=== PATIENT | female | born 1960 | race Caucasian/White ===

== ENCOUNTER 2019-05-06 22:53 | Observation (INO) | payer MEDICARE, MEDICAID, SELFPAY ==
[2019-05-06 22:54] VITALS: BP 136/66; PULSE 128; RESP 16; TEMP 36.6; O2SAT 96; BMI 37.8
--- NOTE | 2019-05-06 23:30 | EKG12_ITS ---
Test Reason : LOWER EXTRE Blood Pressure : / mmHG Vent. Rate : 104 BPM Atrial Rate : 104 BPM P-R Int : 142 ms QRS Dur : 088 ms QT Int : 344 ms P-R-T Axes : 069 052 060 degrees QTc Int : 452 ms Sinus tachycardia Otherwise normal ECG Confirmed by STACY BECERRA ([id number]), deputy editor in chief BEV SCALES ([id number]) on 05/11/2019 2:05:43 PM Referred By: GERI Confirmed By:STACY BECERRA
--- NOTE | 2019-05-06 23:31 | ED.VISSUMM ---
- ER Visit Summary Date of Service: 05/06/19 Chief Complaint: Bilateral hip pain History of Present Illness: The patient is a 58 F who presents complaining of bilateral hip pain for 3 days. Patient states the pain is an ongoing issue for her, and she has had worsening pain for the last 3 days. She is also complaining of a pinched nerve in her left shoulder. Patient states that the bottoms of her feet hurt and are tingly. She does have history of diabetes, peripheral neuropathy, arthritis, and states she is in pain management although she states she is not on any medications for pain other than [id number] Tylenol. Patient takes amitriptyline. She denies using any controlled substances or being on any illicit substances. She denies withdrawing from anything at this time. Physical Examination: Vital signs: afebrile, hemodynamically stable, no hypoxia on room air General: well nourished, well developed, in no distress Skin: warm, diaphoretic, no rash, no pallor HEENT: normocephalic and atraumatic; PERRL, EOMI, moist mucous membranes Cardiovascular: Tachycardic rate and rhythm without murmurs, no peripheral edema, 2+ pulses all distal extremities Respiratory: No increased work of breathing, lungs are clear to auscultation bilaterally, no rales, rhonchi or wheezing Abdominal: Abdomen is soft, nontender with normoactive bowel sounds, no guarding or rebound, no masses MSK: Moves all extremities, no deformities, normal strength, hips are nontender, patient able to ambulate without any difficulty or pain Neuro: Awake and alert, oriented ?4. No facial droop, sensation and motor function intact and symmetric Test Results: Abnormal Lab Results 05/06/19 05/06/19 05/06/19 23:55 23:55 23:55 WBC 15.6 H RBC 4.76 Hgb 14.2 Hct 43.0 MCV 90.3 MCH 29.8 MCHC 33.0 RDW 14.7 H RDW Differential 47.8 H Plt Count 313 MPV 9.8 Immature Gran % (Auto) 0.200 Neut % (Auto) 78.0 H Lymph % (Auto) 12.8 L [place] % (Auto) 7.9 Eos % (Auto) 0.7 Baso % (Auto) 0.4 Absolute Neuts (auto) 12.2 H Absolute Lymphs (auto) 2.00 Total Counted Not Reportable Sodium 139 Potassium 3.6 Chloride 108 H Carbon Dioxide 24.0 Anion Gap 7 BUN 26 H Creatinine 1.42 H Estim Creat Clear Calc 37.29 Est GFR (MDRD) Af Amer 49 L Est GFR (MDRD) Non-Af 40 L BUN/Creatinine Ratio 18.3 Glucose 113 H Calcium 9.4 Urine Color Urine Clarity Urine pH Ur Specific [place] [address] Urine Protein Urine Glucose (UA) Urine Ketones Urine Occult Blood Urine Nitrite Urine Bilirubin Urine Urobilinogen Ur Leukocyte Esterase Urine RBC Urine WBC Ur Squamous Epith Cells Urine Bacteria Urine Mucus Urine Opiates Screen Urine Methadone Screen Ur Barbiturates Screen Ur Phencyclidine Scrn Ur Amphetamines Screen U Methamphetamin-MDMA U Benzodiazepines Scrn Urine Cocaine Screen U Cannabinoids Screen Ur Drug Screen Comment Ethyl Alcohol 11.0 POC Glucose 05/07/19 05/07/19 05/07/19 00:05 00:05 00:05 WBC RBC Hgb Hct MCV MCH MCHC RDW RDW Differential Plt Count MPV Immature Gran % (Auto) Neut % (Auto) Lymph % (Auto) [place] % (Auto) Eos % (Auto) Baso % (Auto) Absolute Neuts (auto) Absolute Lymphs (auto) Total Counted Sodium Potassium Chloride Carbon Dioxide Anion Gap BUN Creatinine Estim Creat Clear Calc Est GFR (MDRD) Af Amer Est GFR (MDRD) Non-Af BUN/Creatinine Ratio Glucose Calcium Urine Color Yellow Urine Clarity Turbid Urine pH 6.[address] 1.020 Urine Protein 30 H Urine Glucose (UA) Normal Urine Ketones Negative Urine Occult Blood 50 H Urine Nitrite Positive H Urine Bilirubin Negative Urine Urobilinogen Normal Ur Leukocyte Esterase 500 H Urine RBC 0 SEEN Urine WBC >100 SEEN Ur Squamous Epith Cells 0-5 SEEN Urine Bacteria 1+ Urine Mucus 0 SEEN Urine Opiates Screen NEGATIVE Urine Methadone Screen NEGATIVE Ur Barbiturates Screen NEGATIVE Ur Phencyclidine Scrn NEGATIVE Ur Amphetamines Screen NEGATIVE U Methamphetamin-MDMA NEGATIVE U Benzodiazepines Scrn NEGATIVE Urine Cocaine Screen NEGATIVE U Cannabinoids Screen NEGATIVE Ur Drug Screen Comment Ethyl Alcohol POC Glucose 107 Medications Given Sodium Chloride () 1,000 mls @ 999 mls/hr IV .Q1H1M ONE Stop: 05/07/19 02:18 Ceftriaxone Sodium (Rocephin) 1 gm in 50 mls @ 100 mls/hr IV X1 ONE Stop: 05/07/19 01:47 Discontinued Medications Ketorolac Tromethamine (Toradol) 15 mg IV X1 ONE Stop: 05/06/19 23:31 Last Admin: 05/07/19 00:02 Dose: 15 mg Documented by: JAM Emergency Department Course and Treatment: Patient presents complaining of 3 days of bilateral hip pain, which is an ongoing issue for her. She is tachycardic and has an odd affect, with diaphoresis. Patient [place]AR[place] report was performed since patient is in pain management, and it did not show any controlled substances since 2018. Patient states she is not withdrawing from anything but she is on amitriptyline. Because of her tachycardia, diaphoresis, and her odd affect, with concern for an underlying medical reason causing this, blood sugar was checked, basic labs were performed, and a urine drug screen and alcohol level were obtained. Patient was given Toradol for pain. Patient had a leukocytosis of 15.6. Creatinine elevated at 1.4. Urine was strongly positive for infection. Patient's alcohol was negative. EKG showed no ischemic changes. Discussed with patient her hip pain again and whether she is having any urinary symptoms. Patient stated she is having some dysuria and frequency. At this time I suspect her hip pain is actually lower back pain related to acute pyelonephritis. Patient was started on Rocephin. Lactate was performed and blood cultures were obtained. Patient will be admitted for further management of acute pyelonephritis. Patient was discussed with the hospitalist for admission. Treatment Plan: [] Disposition: [] Impression: Acute pyelonephritis This note was generated with [employer] software. It may contain incorrect words, spelling, and punctuation that were not noted in review of the chart prior to signing ED Disposition - Plan for ED Patient: Referrals: Lamberto Rogers MD [Primary Care Provider] -
[2019-05-07] VITALS (11 sets, daily range): BP systolic 121–154; BP diastolic 64–73; PULSE 84–91; RESP 14–18; TEMP 36.6–37.6; O2SAT 94–98; BMI 37.8; BMI 37.9
[2019-05-07] MEDS: Ketorolac 15 MG/ML Vial IV (00:02)
[2019-05-07 00:11] LABS: Bedside Glucose 107 mg/dL (70-110); Mucous, Urine 0 SEEN /hpf (<or=2+); Red Blood Cells-Urine 0 SEEN /hpf (0-5)
[2019-05-07 00:13] LABS: Color, Urine Yellow (Yellow); Glucose, Dipstick Normal (Normal); Ketone-Dipstick Negative (Negative); Leukocyte Esterase-Dipstick 500 /ul (Negative); Nitrite-Dipstick Positive (Negative); Occult Blood-Urine 50 /ul (Negative); Protein-Dipstick 30 mg/dl (Negative); Urine Bilirubin Dipstick Negative (Negative); Urine Clarity Turbid (Clear); Urine Urobilinogen Normal (Normal)
[2019-05-07 00:14] LABS: Hemoglobin 14.2 g/dl (12.0-15.0); Mean Corpuscular Hgb 29.8 pg (27.0-32.0); Mean Corpuscular Volume 90.3 fL (81-99); RBC Distribution Width CV 14.7 % (11.6-14.6); RBC Distribution Width SD 47.8 fl (35.1-43.9); Red Blood Count 4.76 M/mm3 (4.2-5.4); White Blood Count 15.6 K/mm3 (4.4-11.0)
[2019-05-07 00:15] LABS: Absolute Neutrophil Count 12.2 X10^3/uL (2.0-7.7); Basophil# 0.06 X10^3/uL; Basophil% 0.4 % (0-1); Eosinophil# 0.11 X10^3/uL; Eosinophils% 0.7 % (0-5); Lymphocyte % 12.8 % (19-41); Mean Platelet Vol. 9.8 fl (6.2-12.0); Monocyte# 1.23 X10^3/uL; Monocyte% 7.9 % (0-10); Neutrophil # 12.16 X10^3/uL (2.7-7.7); POSITIVE COUNT NO; POSITIVE DIFFERENTIAL NO; POSITIVE MORPHOLOGY NO; Platelet Count 313 K/mm3 (150-450)
[2019-05-07 00:20] LABS: Anion Gap 7 (5-15); BUN 26 mg/dL (7-18); BUN/Creat Ratio 18.3 RATIO (10-20); Calcium,Total 9.4 mg/dL (8.5-10.1); Chloride 108 mmol/L (98-107); Creatinine, Serum 1.42 mg/dL (0.55-1.02); EST Glomerular Filtration Rate 40 mL/min (>60); Est Glom Filt Rate - Afr Amer 49 mL/min (>60); Estimated Creatinine Clearance 37.29 ml/min; Glucose 113 mg/dL (74-106); Potassium 3.6 mmol/L (3.5-5.1); Sodium Level 139 mmol/L (136-145)
[2019-05-07 00:27] LABS: Bacteria 1+ /hpf (None Seen); Squamous Epithelial Cells - UA 0-5 SEEN /hpf (5-10); White Blood Cells >100 SEEN /hpf (0-5)
[2019-05-07 00:44] LABS: Amphetamine Urine VISTA NEGATIVE (<1000 ng/mL); Barbiturate Urine VISTA NEGATIVE (< 200 ng/mL); Benzodiazepine Urine VISTA NEGATIVE (< 200 ng/mL); Cocaine Urine VISTA NEGATIVE (< 300 ng/mL); Ecstacy Urine VISTA NEGATIVE (< 500 ng/mL); Methadone Urine VISTA NEGATIVE (< 300 ng/mL); PCP Urine VISTA NEGATIVE (< 25 ng/mL); THC Urine VISTA NEGATIVE (< 50 ng/mL); Vista UDS pH Range 5
--- NOTE | 2019-05-07 01:18 | RAD_ITS ---
STUDY: X-RAY CHEST REASON FOR EXAM: Female, 58 years old. Sepsis TECHNIQUE: Single AP portable view of the chest. COMPARISON: None. FINDINGS: Subsegmental atelectases in the left lung base. There is no demonstrated pleural abnormality. Normal size heart. Normal mediastinum and dwayne. Normal visualized pulmonary arteries. Normal visualized aortic arch and descending thoracic aorta. Normal visualized thoracic spine. Normal visualized ribs, clavicles, and shoulders. There is no demonstrated abnormality of the visualized soft tissue structures of the upper abdomen. RAD/Chest 1 View (Portable) IMPRESSION: Normal x-ray examination of the chest. Electronically Signed: Tip Jurado, at 2:07 EDT Tel , Service support ,
[2019-05-07] MEDS: 0.9% Normal Saline 1,000 ML 999 ML IV (01:26)
[2019-05-07 01:39] LABS: Lactic Acid 1.7 mmol/L (0.4-2.0)
[2019-05-07] MEDS: Ceftriaxone 1 GM/50 ML BAG IV ×2 (01:58→21:31)
[2019-05-07 02:45] LABS: Hemoglobin A1c 6.4 % (4.2-6.3)
[2019-05-07] MEDS: 0.9% Normal Saline 1,000 ML 75 ML IV (03:04)
[2019-05-07 07:20] LABS: Absolute Neutrophil Count 8.5 X10^3/uL (2.0-7.7); Basophil# 0.04 X10^3/uL; Basophil% 0.3 % (0-1); Eosinophil# 0.19 X10^3/uL; Eosinophils% 1.5 % (0-5); Hematocrit 39.8 % (37-47); Hemoglobin 13.3 g/dl (12.0-15.0); Mean Corp Hgb Conc 33.4 g/gl (32-36); Mean Corpuscular Hgb 30.4 pg (27.0-32.0); Mean Corpuscular Volume 91.1 fL (81-99); Mean Platelet Vol. 10.3 fl (6.2-12.0); Monocyte# 1.29 X10^3/uL; Monocyte% 9.9 % (0-10); Neutrophil % 65.1 % (47-70); Platelet Count 279 K/mm3 (150-450); RBC Distribution Width CV 14.9 % (11.6-14.6); RBC Distribution Width SD 48.3 fl (35.1-43.9); Red Blood Count 4.37 M/mm3 (4.2-5.4); White Blood Count 13.1 K/mm3 (4.4-11.0)
[2019-05-07 07:23] LABS: POSITIVE COUNT NO; POSITIVE DIFFERENTIAL NO; POSITIVE MORPHOLOGY NO
[2019-05-07 07:41] LABS: Anion Gap 7 (5-15); BUN 21 mg/dL (7-18); Calcium,Total 8.6 mg/dL (8.5-10.1); Chloride 112 mmol/L (98-107); Creatinine, Serum 1.05 mg/dL (0.55-1.02); EST Glomerular Filtration Rate 57 mL/min (>60); Est Glom Filt Rate - Afr Amer 69 mL/min (>60); Estimated Creatinine Clearance 50.43 ml/min; Glucose 110 mg/dL (74-106); Potassium 3.4 mmol/L (3.5-5.1); Sodium Level 141 mmol/L (136-145)
--- NOTE | 2019-05-07 07:50 | PCM.HP.STD ---
Problem List (1) UTI (urinary tract infection) Status: Acute History of Present Illness Date of Admission: 05/07/19 Chief Complaint: bilateral hip pain. The patient is a 58 year old F with a significant history of rosacea; hyperlipidemia; hypertension; neuropathy bilateral hip replacement presenting with bilateral hip pain that started 3 days ago. Associated with her symptoms is tingling in her bilateral hands and feet and left shoulder. She reported because of neuropathy she was compression socks. Further she has noticed increasing frequency of her urination in the last 2 weeks. Also patient reports history of chronic constipation. However her bowels moved within 24 hours before presentation. At the Emergency department patient was found to have severely abnormal urinalysis. Past Medical History Past Medical History (Chronic Problems): Chronic Problems Primary osteoarthritis of left hip (Chronic) Diabetes (Chronic) Spinal stenosis (Chronic) Allergies enalapril Adverse Reaction (Verified 05/06/19 22:54) COUGH lisinopril Adverse Reaction (Verified 05/06/19 22:54) COUGH Home Medications: Ambulatory Orders Medication Instructions Recorded Amitriptyline HCl [Elavil] 10 mg PO QHS 12/12/16 Amlodipine [Norvasc] 10 mg PO DAILY 02/06/17 cycloBENZAPRine HCl [Flexeril] 10 mg PO TID PRN PRN 02/06/17 Atorvastatin Calcium [Lipitor] 10 mg PO QHS 06/12/17 Surgical History: - - lumbar sacral trauma due to fall on a fiberglass boat, [employer] History: No pertinent [employer] history Lives: Alone - With maids Smoking Status: Current every day smoker - *Family History Maternal History Items: - - diabeties,heart disease Paternal History Items: - - colon cancer at age 55-58 Review of Systems Constitutional: Denies: Chills, Fever, Weight Change HEENT: Denies: Head Aches, Sinus Congestion, Sinus Drainage Cardiovascular: Denies: Chest Pain, Palpitations Respiratory: Denies: Cough, Shortness of breath at rest, Sputum production Gastrointestinal: Denies: Abdominal Pain, Nausea, Vomiting Genitourinary: Reports: Frequency. Denies: Dysuria Musculoskeletal: Denies: Joint Pain, Joint Tenderness Skin: Denies: Rash, Wounds Neurological: Denies: Numbness, Tingling, Focal weakness Psychiatric: Denies: Anxiety, Depression, Homicidal Ideations, Suicidal Ideations Hematologic/ Lymphatic: Denies: Easy Bruising, Easy Bleeding VTE Information - Inpt Only VTE Present on Admission: No VTE Mechan Device Prophylaxis: None VTE Pharm Prophylaxis ordered?: Yes Patient Problems: Active and Suspected Problems UTI (urinary tract infection) (Acute) - Physical Exam General: Alert, Oriented x3, Cooperative HEENT: Atraumatic, PERRLA, EOMI, Normocephalic Neck: Supple, No JVD, Negative Carotid Bruits Lungs: Clear to auscultation, Normal air movement Cardiovascular: Regular rate, No murmurs Abdomen: Bowel Sounds Present, Soft, Non Tender Extremities: No edema, Capillary Refill Less than 3 Seconds Skin: No rashes, No breakdown Musculoskeletal: No Tenderness to Palpation of Joints or Extremities Neurological: Cranial nerves II-XII grossly intact Psych/Mental Status: Normal Affect, Appropriate Vital Signs Temp Pulse Resp BP Pulse Ox 97.9 F 91 15 145/69 H 98 05/07/19 02:41 05/07/19 02:41 05/07/19 02:41 05/07/19 02:41 05/07/19 02:41 Oxygen Delivery Method Room Air Weight: 100.045 kg Body Mass Index (BMI) 37.8 Finger Stick Blood Glucose 107 Laboratory Tests Past 24 Hrs 05/06/19 05/06/19 05/06/19 23:55 23:55 23:55 WBC 15.6 H RBC 4.76 Hgb 14.2 Hct 43.0 MCV 90.3 MCH 29.8 MCHC 33.0 RDW 14.7 H RDW Differential 47.8 H Plt Count 313 MPV 9.8 Immature Gran % (Auto) 0.200 Neut % (Auto) 78.0 H Lymph % (Auto) 12.8 L [place] % (Auto) 7.9 Eos % (Auto) 0.7 Baso % (Auto) 0.4 Absolute Neuts (auto) 12.2 H Absolute Lymphs (auto) 2.00 Total Counted Not Reportable Sodium 139 Potassium 3.6 Chloride 108 H Carbon Dioxide 24.0 Anion Gap 7 BUN 26 H Creatinine 1.42 H Estim Creat Clear Calc 37.29 Est GFR (MDRD) Af Amer 49 L Est GFR (MDRD) Non-Af 40 L BUN/Creatinine Ratio 18.3 Glucose 113 H Hemoglobin A1c Lactic Acid Calcium 9.4 Urine Color Urine Clarity Urine pH Ur Specific [place] Urine Protein Urine Glucose (UA) Urine Ketones Urine Occult Blood Urine Nitrite Urine Bilirubin Urine Urobilinogen Ur Leukocyte Esterase Urine RBC Urine WBC Ur Squamous Epith Cells Urine Bacteria Urine Mucus Urine Opiates Screen Urine Methadone Screen Ur Barbiturates Screen Ur Phencyclidine Scrn Ur Amphetamines Screen U Methamphetamin-MDMA U Benzodiazepines Scrn Urine Cocaine Screen U Cannabinoids Screen Ur Drug Screen Comment Ethyl Alcohol 11.0 05/06/19 05/07/19 05/07/19 23:55 00:05 00:05 WBC RBC Hgb Hct MCV MCH MCHC RDW RDW Differential Plt Count MPV Immature Gran % (Auto) Neut % (Auto) Lymph % (Auto) [place] % (Auto) Eos % (Auto) Baso % (Auto) Absolute Neuts (auto) Absolute Lymphs (auto) Total Counted Sodium Potassium Chloride Carbon Dioxide Anion Gap BUN Creatinine Estim Creat Clear Calc Est GFR (MDRD) Af Amer Est GFR (MDRD) Non-Af BUN/Creatinine Ratio Glucose Hemoglobin A1c 6.4 H Lactic Acid Calcium Urine Color Yellow Urine Clarity Turbid Urine pH 6.0 Ur Specific [place] 1.020 Urine Protein 30 H Urine Glucose (UA) Normal Urine Ketones Negative Urine Occult Blood 50 H Urine Nitrite Positive H Urine Bilirubin Negative Urine Urobilinogen Normal Ur Leukocyte Esterase 500 H Urine RBC 0 SEEN Urine WBC >100 SEEN Ur Squamous Epith Cells 0-5 SEEN Urine Bacteria 1+ Urine Mucus 0 SEEN Urine Opiates Screen NEGATIVE Urine Methadone Screen NEGATIVE Ur Barbiturates Screen NEGATIVE Ur Phencyclidine Scrn NEGATIVE Ur Amphetamines Screen NEGATIVE U Methamphetamin-MDMA NEGATIVE U Benzodiazepines Scrn NEGATIVE Urine Cocaine Screen NEGATIVE U Cannabinoids Screen NEGATIVE Ur Drug Screen Comment Ethyl Alcohol 05/07/19 05/07/19 05/07/19 00:55 06:10 06:10 WBC 13.1 H RBC 4.37 Hgb 13.3 Hct 39.8 MCV 91.1 MCH 30.4 MCHC 33.4 RDW 14.9 H RDW Differential 48.3 H Plt Count 279 MPV 10.3 Immature Gran % (Auto) 0.200 Neut % (Auto) 65.1 Lymph % (Auto) 23.0 [place] % (Auto) 9.9 Eos % (Auto) 1.5 Baso % (Auto) 0.3 Absolute Neuts (auto) 8.5 H Absolute Lymphs (auto) 3.00 Total Counted Not Reportable Sodium 141 Potassium 3.4 L Chloride 112 H Carbon Dioxide 22.0 Anion Gap 7 BUN 21 H Creatinine 1.05 H Estim Creat Clear Calc 50.43 Est GFR (MDRD) Af Amer 69 Est GFR (MDRD) Non-Af 57 L BUN/Creatinine Ratio 20.0 Glucose 110 H Hemoglobin A1c Lactic Acid 1.7 Calcium 8.6 Urine Color Urine Clarity Urine pH Ur Specific [place] Urine Protein Urine Glucose (UA) Urine Ketones Urine Occult Blood Urine Nitrite Urine Bilirubin Urine Urobilinogen Ur Leukocyte Esterase Urine RBC Urine WBC Ur Squamous Epith Cells Urine Bacteria Urine Mucus Urine Opiates Screen Urine Methadone Screen Ur Barbiturates Screen Ur Phencyclidine Scrn Ur Amphetamines Screen U Methamphetamin-MDMA U Benzodiazepines Scrn Urine Cocaine Screen U Cannabinoids Screen Ur Drug Screen Comment Ethyl Alcohol POC Glucose 05/07/19 00:05 POC Glucose 107 Assessment/Plan All Active Problems UTI (urinary tract infection) (Acute) Closed left hip fracture (Acute) Closed left hip fracture (Acute) HTN (hypertension) (Acute) Hypokalemia (Acute) The patient is a 58 year old F with a significant history of rosacea; hyperlipidemia; hypertension; neuropathy bilateral hip replacement presenting with bilateral hip pain; bilateral hands and feet and left shoulder and frequent urination. Acute Cystitis Patient noted to have neutrophilic leukocytosis. Patient was noted to have abnormal urinalysis; and she received ceftriaxone at emergency department. We will continue ceftriaxone at this time. Trend CBC and BMP. Bilateral hip pain. Patient reports bilateral hip replacements and a history of bilateral hip pain before her hip replacement. Different diagnoses include osteoarthritis. Patient received Toradol at the ED. Because of concomitant CARLO will shy away from further steroids at this time. Home Flexeril continued. PRN oxycodone ordered. PRN Tylenol ordered. PRN Zofran ordered. Bowel protocol initiated. Neuropathy Likely diabetic neuropathy We will get A1c. Amitriptyline continued CARLO Presentation her creatinine was 1.42. Review of old records shows a creatinine of less than 1. Will consider prerenal at this time and initiate gentle IV hydration. Avoid nephrotoxins. Trend BMP. Hypertension Presentation her blood pressure was not within goal Amlodipine continued Hyperlipidemia Lipitor continued. Tobacco abuse Counseled Declined nicotine patch. DVT Prophylaxis Subcutaneous heparin. Code Visit OBSV E&M: [id number] Initial observation care L3
--- NOTE | 2019-05-07 08:12 | PCM.PN.HOSP ---
Patient Problems: Active and Suspected Problems UTI (urinary tract infection) (Acute) Subjective: Patient admitted with 3 days of bilateral hip pain. Patient has history of primary osteoarthritis status post hip replacement in 2017?18. Also history of spinal stenosis and diabetes. Patient also has chronic constipation for more than 5 to 6 years. Complaint of dysuria and increased frequency. UA positive pyuria. No fever or chills. Had tachycardia in ED. Vitals/I&O's: Vital Signs Temp Pulse Resp BP Pulse Ox 97.9 F 91 15 145/69 H 98 05/07/19 02:41 05/07/19 02:41 05/07/19 02:41 05/07/19 02:41 05/07/19 02:41 Oxygen Delivery Method Room Air Weight: 220 lb 9 oz Body Mass Index (BMI) 37.8 Finger Stick Blood Glucose 107 General: Alert, Oriented x3, Cooperative HEENT: Atraumatic, PERRLA, EOMI, Normocephalic Neck: Supple, No JVD, Negative Carotid Bruits Lungs: Clear to auscultation, No rhonchi, No wheeze, No rales, Diminished Cardiovascular: Regular rate, Regular Rhythm, Normal S1, Normal S2, No murmurs Abdomen: Bowel Sounds Present, Soft, Non Tender, Non-Distended Extremities: No edema, Capillary Refill Less than 3 Seconds Skin: No rashes, No breakdown Musculoskeletal: Arthritic Changes, Tenderness - Mild tenderness around the greater trochanter of bilateral hips. Range of motion adequate and full. Neurological: Cranial nerves II-XII grossly intact, Deep Tendon Reflexes 2+/4 and Symmetrical, Neuro grossly intact, Motor Exam 5/5 strength throughout - 5/5 at both hip joints and knee joints. Psych/Mental Status: Normal Affect, Appropriate Laboratory Results 05/06/19 23:55: WBC 15.6 H, RBC 4.76, Hgb 14.2, Hct 43.0, MCV 90.3, MCH 29.8, MCHC 33.0, RDW 14.7 H, RDW Differential 47.8 H, Plt Count 313, MPV 9.8, Immature Gran % (Auto) 0.200, Neut % (Auto) 78.0 H, Lymph % (Auto) 12.8 L, [place] % (Auto) 7.9, Eos % (Auto) 0.7, Baso % (Auto) 0.4, Absolute Neuts (auto) 12.2 H, Absolute Lymphs (auto) 2.00, Total Counted Not Reportable 05/06/19 23:55: Sodium 139, Potassium 3.6, Chloride 108 H, Carbon Dioxide 24.0, Anion Gap 7, BUN 26 H, Creatinine 1.42 H, Estim Creat Clear Calc 37.29, Est GFR (MDRD) Af Amer 49 L, Est GFR (MDRD) Non-Af 40 L, BUN/Creatinine Ratio 18.3, Glucose 113 H, Calcium 9.4 05/06/19 23:55: Ethyl Alcohol 11.0 05/06/19 23:55: Hemoglobin A1c 6.4 H 05/07/19 00:05: Urine Color Yellow, Urine Clarity Turbid, Urine pH 6.0, Ur Specific [place] 1.020, Urine Protein 30 H, Urine Glucose (UA) Normal, Urine Ketones Negative, Urine Occult Blood 50 H, Urine Nitrite Positive H, Urine Bilirubin Negative, Urine Urobilinogen Normal, Ur Leukocyte Esterase 500 H, Urine RBC 0 SEEN, Urine WBC >100 SEEN, Ur Squamous Epith Cells 0-5 SEEN, Urine Bacteria 1+, Urine Mucus 0 SEEN 05/07/19 00:05: Urine Opiates Screen NEGATIVE, Urine Methadone Screen NEGATIVE, Ur Barbiturates Screen NEGATIVE, Ur Phencyclidine Scrn NEGATIVE, Ur Amphetamines Screen NEGATIVE, U Methamphetamin-MDMA NEGATIVE, U Benzodiazepines Scrn NEGATIVE, Urine Cocaine Screen NEGATIVE, U Cannabinoids Screen NEGATIVE, Ur Drug Screen Comment 05/07/19 00:05: POC Glucose 107 05/07/19 00:55: Lactic Acid 1.7 05/07/19 06:10: WBC 13.1 H, RBC 4.37, Hgb 13.3, Hct 39.8, MCV 91.1, MCH 30.4, MCHC 33.4, RDW 14.9 H, RDW Differential 48.3 H, Plt Count 279, MPV 10.3, Immature Gran % (Auto) 0.200, Neut % (Auto) 65.1, Lymph % (Auto) 23.0, [place] % (Auto) 9.9, Eos % (Auto) 1.5, Baso % (Auto) 0.3, Absolute Neuts (auto) 8.5 H, Absolute Lymphs (auto) 3.00, Total Counted Not Reportable 05/07/19 06:10: Sodium 141, Potassium 3.4 L, Chloride 112 H, Carbon Dioxide 22.0, Anion Gap 7, BUN 21 H, Creatinine 1.05 H, Estim Creat Clear Calc 50.43, Est GFR (MDRD) Af Amer 69, Est GFR (MDRD) Non-Af 57 L, BUN/Creatinine Ratio 20.0, Glucose 110 H, Calcium 8.6 Current Medications Acetaminophen (Tylenol) 650 mg PO Q6H PRN PRN PRN Reason: Mild Pain (1-3)/Temp > 100.7 F Amitriptyline HCl (Elavil) 10 mg PO QHS [facility] Amlodipine Besylate (Norvasc) 10 mg PO DAILY [facility] Atorvastatin Calcium (Lipitor) 10 mg PO QHS [facility] Cyclobenzaprine HCl (Flexeril) 10 mg PO TID PRN PRN PRN Reason: muscle spasms Dextrose (D50w Syringe) 0 gm IV X1 PRN; Protocol PRN Reason: Hypoglycemia Enoxaparin Sodium (Lovenox) 40 mg SC DAILY@1000 [facility] Glucagon () 1 mg IM .X1 PRN PRN Reason: Hypoglycemia Sodium Chloride () 1,000 mls @ 75 mls/hr IV .[id number] [facility] Stop: 05/07/19 15:35 Last Admin: 05/07/19 03:04 Dose: 75 mls/hr Documented by: Ceftriaxone Sodium (Rocephin) 1 gm in 50 mls @ 100 mls/hr IV QHS [facility] Nicotine (Nicoderm Cq (Pbkc)) 14 mg TRANSDERM. DAILY [facility] Last Admin: 05/07/19 03:05 Dose: 14 mg Documented by: Ondansetron HCl (Zofran) 4 mg IV Q8H PRN PRN PRN Reason: NAUSEA/VOMITING Oxycodone HCl (Oxyir) 5 mg PO Q6H PRN PRN PRN Reason: Severe pain (7-10/10) Senna/Docusate Sodium (Senokot-S, Betty-Colace) 1 tablet PO BID [facility] Sodium Chloride () 5 - 15 ml IV UD PRN PRN Reason: SALINE FLUSH Medical Necessity - Tobacco Use Smoking Status: Current every day smoker Assessment/Plan All Active Problems UTI (urinary tract infection) (Acute) Closed left hip fracture (Acute) Closed left hip fracture (Acute) HTN (hypertension) (Acute) Hypokalemia (Acute) The patient is a 58 year old F with a significant history of rosacea; hyperlipidemia; hypertension; 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 UA positive of pyuria, WBC more than 100 cells, nitrite and leukocyte esterase positive. continue ceftriaxone. Follow-up CBC Bilateral hip pain. Possible differential bilateral hip arthritis, referred pain from abdomen possible constipation. Patient reports bilateral hip replacements and a history of bilateral hip pain before her hip replacement. Patient denies loosening of joint on walking and the pain is for last 3 days only. Bilateral hip x-rays ordered. Patient hip surgeon Dr. Edwards. KUB ordered. Home Flexeril continued. PRN oxycodone ordered. PRN Tylenol ordered. PRN Zofran ordered. Bowel protocol initiated. Neuropathy Likely diabetic neuropathy We will get A1c. Amitriptyline continued CARLO Presentation her creatinine was 1.42. Review of old records shows a creatinine of less than 1. Creatinine 1.0. Resume lisinopril at LOWER DOSE Hypertension; not controlled Amlodipine continued. Hydralazine 25 mg twice daily added. Hyperlipidemia Lipitor continued. Tobacco abuse Counseled Declined nicotine patch. DVT Prophylaxis Subcutaneous 40 mg subcu daily Active Medications Acetaminophen (Tylenol) 650 mg PO Q6H PRN PRN PRN Reason: Mild Pain (1-3)/Temp > 100.7 F Amitriptyline HCl (Elavil) 10 mg PO QHS [facility] Amlodipine Besylate (Norvasc) 10 mg PO DAILY [facility] Atorvastatin Calcium (Lipitor) 10 mg PO QHS [facility] Cyclobenzaprine HCl (Flexeril) 10 mg PO TID PRN PRN PRN Reason: muscle spasms Dextrose (D50w Syringe) 0 gm IV X1 PRN; Protocol PRN Reason: Hypoglycemia Enoxaparin Sodium (Lovenox) 40 mg SC DAILY@1000 [facility] Glucagon () 1 mg IM .X1 PRN PRN Reason: Hypoglycemia Sodium Chloride () 1,000 mls @ 75 mls/hr IV .[id number] [facility] Stop: 05/07/19 15:35 Last Admin: 05/07/19 03:04 Dose: 75 mls/hr Documented by: Ceftriaxone Sodium (Rocephin) 1 gm in 50 mls @ 100 mls/hr IV QHS [facility] Nicotine (Nicoderm Cq (Pbkc)) 14 mg TRANSDERM. DAILY [facility] Last Admin: 05/07/19 03:05 Dose: 14 mg Documented by: Ondansetron HCl (Zofran) 4 mg IV Q8H PRN PRN PRN Reason: NAUSEA/VOMITING Oxycodone HCl (Oxyir) 5 mg PO Q6H PRN PRN PRN Reason: Severe pain (7-1010) Potassium Chloride (K-Dur) 40 meq PO X1 ONE Stop: 05/07/19 08:39 Senna/Docusate Sodium (Senokot-S, Betty-Colace) 1 tablet PO BID [facility] Sodium Chloride () 5 - 15 ml IV UD PRN PRN Reason: SALINE FLUSH Laboratory Results 05/06/19 23:55: WBC 15.6 H, RBC 4.76, Hgb 14.2, Hct 43.0, MCV 90.3, MCH 29.8, MCHC 33.0, RDW 14.7 H, RDW Differential 47.8 H, Plt Count 313, MPV 9.8, Immature Gran % (Auto) 0.200, Neut % (Auto) 78.0 H, Lymph % (Auto) 12.8 L, [place] % (Auto) 7.9, Eos % (Auto) 0.7, Baso % (Auto) 0.4, Absolute Neuts (auto) 12.2 H, Absolute Lymphs (auto) 2.00, Total Counted Not Reportable 05/06/19 23:55: Sodium 139, Potassium 3.6, Chloride 108 H, Carbon Dioxide 24.0, Anion Gap 7, BUN 26 H, Creatinine 1.42 H, Estim Creat Clear Calc 37.29, Est GFR (MDRD) Af Amer 49 L, Est GFR (MDRD) Non-Af 40 L, BUN/Creatinine Ratio 18.3, Glucose 113 H, Calcium 9.4 05/06/19 23:55: Ethyl Alcohol 11.0 05/06/19 23:55: Hemoglobin A1c 6.4 H 05/07/19 00:05: Urine Color Yellow, Urine Clarity Turbid, Urine pH 6.0, Ur Specific [place] 1.020, Urine Protein 30 H, Urine Glucose (UA) Normal, Urine Ketones Negative, Urine Occult Blood 50 H, Urine Nitrite Positive H, Urine Bilirubin Negative, Urine Urobilinogen Normal, Ur Leukocyte Esterase 500 H, Urine RBC 0 SEEN, Urine WBC >100 SEEN, Ur Squamous Epith Cells 0-5 SEEN, Urine Bacteria 1+, Urine Mucus 0 SEEN 05/07/19 00:05: Urine Opiates Screen NEGATIVE, Urine Methadone Screen NEGATIVE, Ur Barbiturates Screen NEGATIVE, Ur Phencyclidine Scrn NEGATIVE, Ur Amphetamines Screen NEGATIVE, U Methamphetamin-MDMA NEGATIVE, U Benzodiazepines Scrn NEGATIVE, Urine Cocaine Screen NEGATIVE, U Cannabinoids Screen NEGATIVE, Ur Drug Screen Comment 05/07/19 00:05: POC Glucose 107 05/07/19 00:55: Lactic Acid 1.7 05/07/19 06:10: WBC 13.1 H, RBC 4.37, Hgb 13.3, Hct 39.8, MCV 91.1, MCH 30.4, MCHC 33.4, RDW 14.9 H, RDW Differential 48.3 H, Plt Count 279, MPV 10.3, Immature Gran % (Auto) 0.200, Neut % (Auto) 65.1, Lymph % (Auto) 23.0, [place] % (Auto) 9.9, Eos % (Auto) 1.5, Baso % (Auto) 0.3, Absolute Neuts (auto) 8.5 H, Absolute Lymphs (auto) 3.00, Total Counted Not Reportable 05/07/19 06:10: Sodium 141, Potassium 3.4 L, Chloride 112 H, Carbon Dioxide 22.0, Anion Gap 7, BUN 21 H, Creatinine 1.05 H, Estim Creat Clear Calc 50.43, Est GFR (MDRD) Af Amer 69, Est GFR (MDRD) Non-Af 57 L, BUN/Creatinine Ratio 20.0, Glucose 110 H, Calcium 8.6 Code Visit Inpatient E&M: 13590 Subs Hosp L3
--- NOTE | 2019-05-07 08:47 | RAD_ITS ---
STUDY: X-RAY - ABDOMEN/PELVIS REASON FOR EXAM: Female, 58 years old. TECHNIQUE: COMPARISON: None. FINDINGS: Normal visualized lung bases. There is an unremarkable bowel gas pattern. There is no demonstrated free abdominal air. The visualized liver, spleen and kidneys are grossly normal in size and morphology. Normal soft tissue structures. Normal visualized osseous structures. Bilateral hip prostheses noted RAD/Abd Inc Decub and/or Erect IMPRESSION: Normal x-ray examination of the abdomen and pelvis. Electronically Signed: Vidal Diaz, at 10:09 EDT Tel , Service support ,
[2019-05-07 08:57] LABS: Hemoglobin A1c 6.5 % (4.2-6.3)
--- NOTE | 2019-05-07 09:40 | RAD_ITS ---
STUDY: X-RAY - PELVIS AND BILATERAL HIPS REASON FOR EXAM: Female, 58 years old. TECHNIQUE: AP view of the pelvis.? 2 views of the right hip, and 2 views of the left hip were obtained. COMPARISON: None. FINDINGS: Both iliac bones are unremarkable so are the sacroiliac joints. There are bilateral hip prostheses no obvious complication noted. Electronically Signed: Vidal Diaz, at 10:09 EDT Tel , Service support , RAD/Hips B/L min 2 views w/ Pelvis
[2019-05-07] MEDS: Enoxaparin 40 MG/0.4 ML Syringe SC (10:09)
[2019-05-07] MEDS: amLODIPine 10 MG Tablet PO (10:10)
[2019-05-07] MEDS: Senna/Docusate Sodium 1 Tablet 2 TABLET PO ×2 (10:11→21:31)
[2019-05-07] MEDS: hydrALAZINE 25 MG Tablet PO ×2 (10:12→21:31)
[2019-05-07] MEDS: Atorvastatin Calcium 10 MG Tablet PO (21:31)
[2019-05-07] MEDS: Amitriptyline 10 MG Tablet PO (21:31)
[2019-05-08 02:30] VITALS: BP 138/74; PULSE 78; RESP 16; TEMP 36.6; O2SAT 98
[2019-05-08 06:37] LABS: Absolute Lymphocyte Count 2.79 X10^3/ul (0.83-4.51); Absolute Neutrophil Count 3.6 X10^3/uL (2.0-7.7); Basophil# 0.06 X10^3/uL; Basophil% 0.8 % (0-1); Eosinophil# 0.36 X10^3/uL; Eosinophils% 4.7 % (0-5); Hematocrit 41.2 % (37-47); Hemoglobin 11.5 g/dl (12.0-15.0); Lymphocyte # 2.79 X10^3/ul (4.0); Lymphocyte % 36.5 % (19-41); Mean Corp Hgb Conc 27.9 g/gl (32-36); Mean Corpuscular Hgb 25.4 pg (27.0-32.0); Mean Corpuscular Volume 91.2 fL (81-99); Mean Platelet Vol. 10.4 fl (6.2-12.0); Monocyte# 0.82 X10^3/uL; Monocyte% 10.7 % (0-10); Neutrophil # 3.59 X10^3/uL (2.7-7.7); Platelet Count 269 K/mm3 (150-450); RBC Distribution Width CV 14.9 % (11.6-14.6); RBC Distribution Width SD 48.9 fl (35.1-43.9); Red Blood Count 4.52 M/mm3 (4.2-5.4); White Blood Count 7.6 K/mm3 (4.4-11.0)
[2019-05-08 06:38] LABS: POSITIVE COUNT NO; POSITIVE DIFFERENTIAL NO; POSITIVE MORPHOLOGY NO
[2019-05-08 06:43] LABS: Anion Gap 8 (5-15); BUN 16 mg/dL (7-18); BUN/Creat Ratio 19.6 RATIO (10-20); Calcium,Total 8.8 mg/dL (8.5-10.1); Chloride 112 mmol/L (98-107); Creatinine, Serum 0.82 mg/dL (0.55-1.02); EST Glomerular Filtration Rate 77 mL/min (>60); Est Glom Filt Rate - Afr Amer 93 mL/min (>60); Estimated Creatinine Clearance 64.58 ml/min; Glucose 89 mg/dL (74-106); Potassium 3.9 mmol/L (3.5-5.1); Sodium Level 144 mmol/L (136-145)
[2019-05-08 08:30] VITALS: BP 132/106; PULSE 93; RESP 16; TEMP 36.4; O2SAT 100
[2019-05-08 09:17] VITALS: PULSE 95
[2019-05-08] MEDS: hydrALAZINE 25 MG Tablet PO (09:17)
[2019-05-08] MEDS: Enoxaparin 40 MG/0.4 ML Syringe SC (09:18)
[2019-05-08] MEDS: amLODIPine 10 MG Tablet PO (09:18)
[2019-05-08] MEDS: Senna/Docusate Sodium 1 Tablet 2 TABLET PO (09:19)
--- NOTE | 2019-05-08 10:02 | DCINST_ITS ---
- Discharge Diagnoses Current Active Problems: Current Active and Chronic Problems UTI (urinary tract infection) (Acute) You will use the following diet at home:: Calorie/Carbohydrate Controlled (specify 1200, 1400, etc) - 1800 ADA diet Your food should be the consistency of: Regular Discharge Activity: May Not Drive - for 1 week until sees PCP Call your doctor if you observe: Fever of 101 or Higher, Inability to have a bowel movement, Using more than one pad per hour, Shortness of breath, Swelling in the ankles, Chest pain, Increased palpitations (irregular heartbeat), Calf discomfort, Uncontrolled pain Allergies/Adverse Reactions: Allergies enalapril Adverse Reaction (Verified 05/06/19 22:54) COUGH lisinopril Adverse Reaction (Verified 05/06/19 22:54) COUGH Medications to take at Discharge Amitriptyline HCl [Elavil] 10 mg PO QHS 12/12/16 Amlodipine [Norvasc] 10 mg PO DAILY 02/06/17 cycloBENZAPRine HCl [Flexeril] 10 mg PO TID PRN PRN 02/06/17 Atorvastatin Calcium [Lipitor] 10 mg PO QHS 06/12/17 Cefadroxil [Duracef] 500 mg PO BID #8 cap 05/08/19 Polyethylene Glycol 3350 [Miralax] 17 gm PO DAILY PRN PRN packet 05/08/19 The following prescriptions were given: Cefadroxil [Duracef] 500 mg PO BID #8 cap Prescription Printed Primary Care Physician: Lamberto Rogers MD [Primary Care Provider] - Please follow up with your Primary Care Physician in: IN 1-2 WEEK Test Results: Test results from this visit will be discussed in further detail at your follow- up appointment, if applicable.
--- NOTE | 2019-05-08 11:43 | PN_ITS ---
Patient Problems: Active and Suspected Problems UTI (urinary tract infection) (Acute) Vitals/I&O's: Vital Signs Temp Pulse Resp BP Pulse Ox 97.6 F L 95 16 132/106 H 100 05/08/19 08:30 05/08/19 09:17 05/08/19 08:30 05/08/19 08:30 05/08/19 08:30 Oxygen Delivery Method Room Air Weight: 220 lb 9 oz Body Mass Index (BMI) 37.8 Finger Stick Blood Glucose 107 Intake and Output for Last 24 Hours 05/06/19 05/07/19 05/08/19 23:59 23:59 23:59 Intake Total 2191 / 2791 600 / 600 Output Total 550 / 650 300 / 300 Balance 1641 / 2141 300 / 300 Microbiology Past 72 Hours 05/07/19 00:05 Urine, Clean Catch Urine Culture - Preliminary Presumptive E. coli Laboratory Results 05/08/19 05:22: WBC 7.6, RBC 4.52, Hgb 11.5 L, Hct 41.2, MCV 91.2, MCH 25.4 L, MCHC 27.9 L, RDW 14.9 H, RDW Differential 48.9 H, Plt Count 269, MPV 10.4, Immature Gran % (Auto) 0.300, Neut % (Auto) 47.0, Lymph % (Auto) 36.5, [place] % (Auto) 10.7 H, Eos % (Auto) 4.7, Baso % (Auto) 0.8, Absolute Neuts (auto) 3.6, Absolute Lymphs (auto) 2.79, Total Counted Not Reportable 05/08/19 05:22: Sodium 144, Potassium 3.9, Chloride 112 H, Carbon Dioxide 24.0, Anion Gap 8, BUN 16, Creatinine 0.82, Estim Creat Clear Calc 64.58, Est GFR ( MDRD) Af Amer 93, Est GFR (MDRD) Non-Af 77, BUN/Creatinine Ratio 19.6, Glucose 89, Calcium 8.8 Current Medications Acetaminophen (Tylenol) 650 mg PO Q6H PRN PRN PRN Reason: Mild Pain (1-3)/Temp > 100.7 F Amitriptyline HCl (Elavil) 10 mg PO QHS [facility] Last Admin: 05/07/19 21:31 Dose: 10 mg Documented by: Amlodipine Besylate (Norvasc) 10 mg PO DAILY [facility] Last Admin: 05/08/19 09:18 Dose: 10 mg Documented by: Atorvastatin Calcium (Lipitor) 10 mg PO QHS [facility] Last Admin: 05/07/19 21:31 Dose: 10 mg Documented by: Bisacodyl (Dulcolax) 10 mg RECTAL DAILY PRN PRN Reason: CONSTIPATION Cyclobenzaprine HCl (Flexeril) 10 mg PO TID PRN PRN PRN Reason: muscle spasms Dextrose (D50w Syringe) 0 gm IV X1 PRN; Protocol PRN Reason: Hypoglycemia Enoxaparin Sodium (Lovenox) 40 mg SC DAILY@1000 [facility] Last Admin: 05/08/19 09:18 Dose: 40 mg Documented by: Glucagon () 1 mg IM .X1 PRN PRN Reason: Hypoglycemia Hydralazine HCl (Apresoline) 25 mg PO BID [facility] Last Admin: 05/08/19 09:17 Dose: 25 mg Documented by: Ceftriaxone Sodium (Rocephin) 1 gm in 50 mls @ 100 mls/hr IV QHS [facility] Last Admin: 05/07/19 21:31 Dose: 100 mls/hr Documented by: Nicotine (Nicoderm Cq (Pbkc)) 14 mg TRANSDERM. DAILY [facility] Last Admin: 05/08/19 09:18 Dose: 14 mg Documented by: Ondansetron HCl (Zofran) 4 mg IV Q8H PRN PRN PRN Reason: NAUSEA/VOMITING Oxycodone HCl (Oxyir) 5 mg PO Q6H PRN PRN PRN Reason: Severe pain (7-10/10) Polyethylene Glycol (Miralax) 17 gm PO DAILY [facility] Last Admin: 05/08/19 09:18 Dose: Not Given Documented by: Psyllium Hydrophilic Mucilloid (Metamucil) 1 packet PO BID [facility] Last Admin: 05/08/19 09:18 Dose: Not Given Documented by: Senna/Docusate Sodium (Senokot-S, Betty-Colace) 2 tablet PO BID [facility] Last Admin: 05/08/19 09:19 Dose: 2 tablet Documented by: Sodium Chloride () 5 - 15 ml IV UD PRN PRN Reason: SALINE FLUSH Medical Necessity - Tobacco Use Smoking Status: Current every day smoker Assessment/Plan All Active Problems UTI (urinary tract infection) (Acute) Closed left hip fracture (Acute) Closed left hip fracture (Acute) HTN (hypertension) (Acute) Hypokalemia (Acute)
--- NOTE | 2019-05-08 11:45 | DS.PCM_ITS ---
Discharge Date and Diagnosis Date of Admission: 05/07/19 Date of Discharge: 05/08/19 - Primary Discharge Diagnosis Active and Suspected Problems UTI (urinary tract infection) (Acute) - Secondary Discharge Diagnosis Chronic Problems Primary osteoarthritis of left hip (Chronic) Diabetes (Chronic) Spinal stenosis (Chronic) Hospital Course and Treatment Operations: total hip replacement Summary of Care Provided: [] The patient is a 58 year old F with a significant history of rosacea; hyperlipidemia; hypertension; diabetes mellitus type 2 with neuropathy bilateral hip replacement presenting with bilateral hip pain; bilateral hands and feet and left shoulder and frequent urination and pyuria consistent with cystitis Acute E. coli cystitis Patient noted to have neutrophilic leukocytosis and tachycardia. UA positive of pyuria, WBC more than 100 cells, nitrite and leukocyte esterase positive. continue ceftriaxone. Leukocytosis resolved. Preliminary urine culture shows E. coli more than 100,000. Patient had a ceftriaxone for 3 days while inpatient and given 4 more days to complete of total 7 days. Bilateral hip pain. referred pain from abdomen possible constipation. Resolved. Bilateral hip x-ray shows prosthesis in good alignment. Patient reports bilateral hip replacements and a history of bilateral hip pain before her hip replacement. Patient denies loosening of joint on walking and the pain is for last 3 days only. KUB reported normal. Home Flexeril continued. PRN oxycodone ordered. PRN Tylenol ordered. PRN Zofran ordered. Bowel protocol initiated. Neuropathy Likely diabetic neuropathy A1c 6.5, well controlled. Amitriptyline continued CARLO Presentation her creatinine was 1.42. Review of old records shows a creatinine of less than 1. Creatinine 1.0. Resume lisinopril at LOWER DOSE Hypertension; not controlled Amlodipine continued. Hydralazine 25 mg twice daily Hyperlipidemia Lipitor continued. Tobacco abuse Counseled Declined nicotine patch. DVT Prophylaxis Subcutaneous 40 mg subcu daily Discharge medication reconciliation done. Discharge follow-up instructions completed. Discharge process discussed with the patient and all questions were answered to patient's satisfaction. Prescription for cefadroxil sent to patient's pharmacy. Follow with PCP in 1 to 2 weeks. Microbiology Past 72 Hours 05/07/19 00:05 Urine, Clean Catch Urine Culture - Preliminary Presumptive E. coli Laboratory Results 05/08/19 05:22: WBC 7.6, RBC 4.52, Hgb 11.5 L, Hct 41.2, MCV 91.2, MCH 25.4 L, MCHC 27.9 L, RDW 14.9 H, RDW Differential 48.9 H, Plt Count 269, MPV 10.4, Immature Gran % (Auto) 0.300, Neut % (Auto) 47.0, Lymph % (Auto) 36.5, [place] % (Auto) 10.7 H, Eos % (Auto) 4.7, Baso % (Auto) 0.8, Absolute Neuts (auto) 3.6, Absolute Lymphs (auto) 2.79, Total Counted Not Reportable 05/08/19 05:22: Sodium 144, Potassium 3.9, Chloride 112 H, Carbon Dioxide 24.0, Anion Gap 8, BUN 16, Creatinine 0.82, Estim Creat Clear Calc 64.58, Est GFR (MDRD) Af Amer 93, Est GFR (MDRD) Non-Af 77, BUN/Creatinine Ratio 19.6, Glucose 89, Calcium 8.8 Clinical Impression(s) from Imaging Studies Chest X-Ray 05/07/19 01:18 IMPRESSION: Normal x-ray examination of the chest. Abdomen X-Ray 05/07/19 08:47 IMPRESSION: Normal x-ray examination of the abdomen and pelvis. Subjective: Patient denies bilateral hip pain and abdominal pain. Patient has moved bowel. Sitting in the chair and wants to go home. - Physical Exam General: Alert, Oriented x3, Cooperative HEENT: Atraumatic, PERRLA, EOMI, Normocephalic Neck: Supple, No JVD, Negative Carotid Bruits Lungs: Clear to auscultation, Normal air movement, No rhonchi, No wheeze, No rales Cardiovascular: Regular rate, Regular Rhythm, Normal S1, Normal S2, No murmurs Abdomen: Bowel Sounds Present, Soft, Non Tender, Non-Distended Extremities: No edema, Capillary Refill Less than 3 Seconds Skin: No rashes, No breakdown Musculoskeletal: No Tenderness to Palpation of Joints or Extremities, Arthritic Changes, - - Bilateral total hip replacement Neurological: Cranial nerves II-XII grossly intact, Deep Tendon Reflexes 2+/4 and Symmetrical, Neuro grossly intact Psych/Mental Status: Normal Affect, Appropriate Vital Signs Temp Pulse Resp BP Pulse Ox 97.6 F L 95 16 132/106 H 100 05/08/19 08:30 05/08/19 09:17 05/08/19 08:30 05/08/19 08:30 05/08/19 08:30 Oxygen Delivery Method Room Air Weight: 220 lb 9 oz Body Mass Index (BMI) 37.8 Finger Stick Blood Glucose 107 Intake and Output for Last 24 Hours 05/06/19 05/07/19 05/08/19 23:59 23:59 23:59 Intake Total 2191 / 2791 600 / 600 Output Total 550 / 650 300 / 300 Balance 1641 / 2141 300 / 300 Microbiology Past 72 Hours 05/07/19 00:05 Urine Culture - Preliminary Urine, Clean Catch Presumptive E. coli Laboratory Tests Past 24 Hrs 05/08/19 05/08/19 05:22 05:22 WBC 7.6 RBC 4.52 Hgb 11.5 L Hct 41.2 MCV 91.2 MCH 25.4 L MCHC 27.9 L RDW 14.9 H RDW Differential 48.9 H Plt Count 269 MPV 10.4 Immature Gran % (Auto) 0.300 Neut % (Auto) 47.0 Lymph % (Auto) 36.5 [place] % (Auto) 10.7 H Eos % (Auto) 4.7 Baso % (Auto) 0.8 Absolute Neuts (auto) 3.6 Absolute Lymphs (auto) 2.79 Total Counted Not Reportable Sodium 144 Potassium 3.9 Chloride 112 H Carbon Dioxide 24.0 Anion Gap 8 BUN 16 Creatinine 0.82 Estim Creat Clear Calc 64.58 Est GFR (MDRD) Af Amer 93 Est GFR (MDRD) Non-Af 77 BUN/Creatinine Ratio 19.6 Glucose 89 Calcium 8.8 Discharge Activity: May Not Drive - for 1 week until sees PCP Call your doctor if you observe: Fever of 101 or Higher, Inability to have a bowel movement, Using more than one pad per hour, Shortness of breath, Swelling in the ankles, Chest pain, Increased palpitations (irregular heartbeat), Calf discomfort, Uncontrolled pain Home Medications: Medications to take at Discharge Amitriptyline HCl [Elavil] 10 mg PO QHS 12/12/16 Amlodipine [Norvasc] 10 mg PO DAILY 02/06/17 cycloBENZAPRine HCl [Flexeril] 10 mg PO TID PRN PRN 02/06/17 Atorvastatin Calcium [Lipitor] 10 mg PO QHS 06/12/17 Cefadroxil [Duracef] 500 mg PO BID #8 cap 05/08/19 Polyethylene Glycol 3350 [Miralax] 17 gm PO DAILY PRN PRN packet 05/08/19 Following Prescrptions Were Given to Patient: Cefadroxil [Duracef] 500 mg PO BID #8 cap Prescription Printed Primary Care Physician: Lamberto Rogers MD [Primary Care Provider] - Please follow up with your Primary Care Physician in: IN 1-2 WEEK Medical Necessity - Tobacco Use Smoking Status: Current every day smoker Meaningful Use Info Meaningful Use Diagnoses (Choose all that apply): None applicable Code Visit OBSV E&M: 93593 Observation care discharge
[2019-05-08 12:00] VITALS: BP 153/86; PULSE 82; RESP 18; TEMP 36.4; O2SAT 100
== END 2019-05-08 12:34 | disposition home or self-care (01) ==
LOC: ED 05-07 01:21 → MS3 05-07 01:52
PROVIDERS: Admitting Provider Hospitalist; Emergency Provider Emergency Medicine; Family Provider Family Medicine; PCP Family Medicine; Visit Provider Internal Medicine
DX: N30.00 Acute cystitis without hematuria (principal); B96.20 Unspecified Escherichia coli [E. coli] as the cause of diseases classified elsewhere; E11.42 Type 2 diabetes mellitus with diabetic polyneuropathy; M19.90 Unspecified osteoarthritis, unspecified site; E78.5 Hyperlipidemia, unspecified; L71.9 Rosacea, unspecified; I10 Essential (primary) hypertension; M25.551 Pain in right hip; M25.552 Pain in left hip; N17.9 Acute kidney failure, unspecified; Z79.899 Other long term (current) drug therapy; F17.200 Nicotine dependence, unspecified, uncomplicated; E87.6 Hypokalemia
CPT/HCPCS: 36415; 71045; 73521; 74019; 80048; 80307; 80320; 81001; 82962; 83036; 83605; 85025; 87040; 87086; 87088; 87186; 93005; 96361; 96365; 96366; 96372; 96375; 97161; 97165; 99218; 99284; J7030; J7050; A4216; G0378; G0480

== ENCOUNTER 2019-06-11 16:49 | Emergency (ER) | payer MEDICARE, MEDICAID, SELFPAY ==
[2019-05-07 02:16] VITALS: BMI 37.8
[2019-06-11 16:49] VITALS: BP 156/8; PULSE 86; RESP 15; TEMP 36.4; O2SAT 96; BMI 37.8
--- NOTE | 2019-06-11 17:26 | ED.VIS.LOWEX ---
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 Patient states she has pain in her back her hip her thigh and her leg which she has chronically but is been worse for the past 1 month. She denies trauma or injury. She denies swelling or redness. She denies any numbness tingling or weakness. She denies loss of bowel or bladder function or difficulty urinating or constipation. Denies fevers or IV drug abuse. Denies recent travel or surgery. She has been using muscle relaxers and Tylenol that her doctor prescribes for her chronic pain but it has not improved her symptoms. She is not having any difficulty walking. Rest of review of systems are negative. Tetanus Immunization: Unknown Prior similar symptoms: Yes Recent Illness/Hospitalization: Yes <Nicolas Montoya - Last Filed: 06/11/19 17:26> <Andrés Joseph - Last Filed: 06/11/19 17:57> Chief Complaint: Lower Extremity Injury Past Medical History Prior records reviewed: Yes Past Medical History: - - Hypertension, hyperlipidemia, diabetes, diabetic neuropathy Surgical History: - - lumbar sacral trauma due to fall on a fiberglass boat, bilateral hip replacement Lives: Alone Smoking Status: Current every day smoker Alcohol: None Drugs: None - Family History Maternal Family History: Reports: - - diabeties,heart disease Paternal Family History: Reports: - - colon cancer at age 55-58 <Nicolas Montoya - Last Filed: 06/11/19 17:26> <Andrés Joseph - Last Filed: 06/11/19 17:57> - Allergies and Home Meds Allergies/Adverse Reactions: Allergies enalapril Adverse Reaction (Verified 05/06/19 22:54) COUGH lisinopril Adverse Reaction (Verified 05/06/19 22:54) COUGH Primary Care Physician: Lamberto Rogers MD [Primary Care Provider] - Review of Systems All systems negative except as indicated Musculoskeletal: Reports: Back pain, Extremity Pain <Nicolas Montoya - Last Filed: 06/11/19 17:26> Physical Exam Vital Signs/Narrative: Vital Signs Temp Pulse Resp BP Pulse Ox 06/11/19 16:49 97.6 F L 86 15 156/8 H 96 - Extremity Exam Right Pelvis: Negative for: Abrasion, Contusion, Deformity, Edema, Hematoma, Limited ROM Left Pelvis: Negative for: Abrasion, Contusion, Deformity, Edema, Hematoma, Limited ROM Right Hip: - - Normal inspection of both lower extremities. No swelling or redness, rash, signs of trauma or infection. Patient has normal range of motion actively and strength testing of both lower extremities. Normal pulses and sensation of both lower extremities. Normal reflexes both lower extremities. Her gait is normal.. Negative for: Abrasion, Contusion, Deformity, Edema, Hematoma, Limited ROM Left Hip: Negative for: Abrasion, Contusion, Deformity, Edema, Hematoma, Limited ROM Right Femur: Negative for: Abrasion, Contusion, Deformity, Edema, Hematoma, Limited ROM Left Femur: Negative for: Abrasion, Contusion, Deformity, Edema, Hematoma, Limited ROM Right Knee: Negative for: Abrasion, Contusion, Deformity, Edema, Hematoma, Limited ROM Left Knee: Negative for: Abrasion, Contusion, Deformity, Edema, Hematoma, Limited ROM Right Tib fib: Negative for: Abrasion, Contusion, Deformity, Edema, Hematoma, Limited ROM Left Tib Fib: Negative for: Abrasion, Contusion, Deformity, Edema, Hematoma, Limited ROM Right Ankle: Negative for: Abrasion, Contusion, Deformity, Edema, Hematoma, Limited ROM Left Ankle: Negative for: Abrasion, Contusion, Deformity, Edema, Hematoma, Limited ROM Right Foot: Negative for: Abrasion, Contusion, Deformity, Edema, Hematoma, Limited ROM Left Foot: Negative for: Abrasion, Contusion, Deformity, Edema, Hematoma, Limited ROM Right Toe: Negative for: Abrasion, Contusion, Deformity, Edema, Hematoma, Limited ROM Left Toe: Negative for: Abrasion, Contusion, Deformity, Edema, Hematoma, Limited ROM General: Well nourished, Well developed Head: Normocephalic, Atraumatic Eyes: Perrl, EOMI ENT: No Trauma, Moist Mucous Membranes Neck: Nontender, Full ROM Cardiovascular: Regular rate, Regular rhythm Respiratory: No distress, CTA bilaterally, Chest nontender Abdomen: Soft, Nontender, Nondistended, Normal bowel sounds, No masses Back: Paraspinal Tenderness, Positive SLR - Right. Negative for: CVA Tenderness - Right, CVA Tenderness - Left, Spinal Tenderness Skin: Normal color, No rash Neurological: Alert, Oriented x3, Normal Strength, Normal Sensation, Normal DTR, Normal Gait <Nicolas Montoya - Last Filed: 06/11/19 17:26> Vital Signs/Narrative: Vital Signs Temp Pulse Resp BP Pulse Ox 06/11/19 17:38 82 14 146/92 H 98 06/11/19 16:49 97.6 F L 86 15 156/8 H 96 <Andrés Joseph - Last Filed: 06/11/19 17:57> Diagnostic/Tx/Re-eval - Medical Decision Making Patient has normal strength testing sensation and reflexes of both lower extremities. She has not suffered trauma or injury. Her gait is normal. I did tell her that her pain may be due to sciatica as she does have positive straight leg raise on the right and she does have some lumbar paraspinal pain on the right as well. Patient was requesting something for pain. Her primary care physician prescribes her muscle relaxers and Tylenol. She was advised to continue those. Discussed with her that at this time do not feel narcotics is indicated for chronic issue. Discussed with her as well that there is no indication for x-ray as her exam is nonfocal and she has not suffered an injury. She will be discharged home advised on rest and ice continued medications that her doctor prescribed and to follow-up with her primary care physician this week. <Nicolas Montoya - Last Filed: 06/11/19 17:26> - Medical Decision Making Patient was seen with me. I performed a [id number] evaluation with the patient. Patient complains of some right posterior hip and posterior thigh pain that became worse today. Patient denies any trauma or injury. Patient states the pain radiates to her distal thigh. Patient denies any paresthesias or weakness. Patient denies any pelvic pain. Vital signs are stable. Patient is afebrile. Patient is in no acute distress. Musculoskeletal exam revealed some mild tenderness over the posterior aspect of the right hip area. There is no bony crepitance or step-off. There is good range of motion of the right hip. There is no deformity of the right lower extremity. There is no pain with internal or external rotation. Patient was advised that this is most likely muscular pain. Patient was instructed to continue Tylenol or ibuprofen as needed for pain. Patient was instructed to use ice to the area. Patient was advised that x-rays are not necessary at this time. Patient was instructed to follow-up with her primary care physician in 5 to 7 days. Patient understood and was agreeable with the plan. All questions were answered. <Andrés Joseph - Last Filed: 06/11/19 17:57> ED Disposition <Nicolas Montoya - Last Filed: 06/11/19 17:26> <Andrés Joseph - Last Filed: 06/11/19 17:57> - Plan for ED Patient: Disposition: Home or Assisted Living Diagnosis: Right leg pain Instructions: Possible Causes of Low Back or Leg Pain Referrals: Lamberto Rogers MD [Primary Care Provider] -
[2019-06-11 17:38] VITALS: BP 146/92; PULSE 82; RESP 14; O2SAT 98
== END 2019-06-11 17:40 | disposition home or self-care (01) ==
PROVIDERS: Emergency Provider Physician Assistant Medical; Family Provider Family Medicine; PCP Family Medicine
DX: M79.604 Pain in right leg (principal); G89.29 Other chronic pain; I10 Essential (primary) hypertension; E78.5 Hyperlipidemia, unspecified; E11.40 Type 2 diabetes mellitus with diabetic neuropathy, unspecified; F17.200 Nicotine dependence, unspecified, uncomplicated; Z96.643 Presence of artificial hip joint, bilateral; Z79.899 Other long term (current) drug therapy
CPT/HCPCS: 99284

== ENCOUNTER 2019-06-12 02:51 | Emergency (ER) | payer MEDICARE, MEDICAID, SELFPAY ==
[2019-06-11 16:49] VITALS: BMI 37.8
[2019-06-12 02:51] VITALS: BP 157/82; PULSE 110; RESP 15; TEMP 36.6; O2SAT 96; BMI 37.6
--- NOTE | 2019-06-12 03:15 | RAD_ITS ---
HISTORY: PAIN COMPARISON: X-rays of the lumbar spine from December 09, 2014. FINDINGS: # of images incl. paperwork: 3 XR Spine Lumbar 2 or 3 Views: Bilateral hip prostheses remain. Facet arthropathy remains. Degenerative disc disease with large bridging anterior enthesophyte at the L5-S1 level is similar. Trace anterior subluxation of L4 on L5 is similar. Atherosclerotic plaque within the aortic arch is slightly more prominent. IMPRESSION: Persistent degenerative disc disease greatest at the L5-S1 level. Persistent facet arthropathy throughout the lumbar spine. Lumbar vertebral bodies are normal in height. Lumbar disc spaces are well maintained. No acute lumbar spine fracture or subluxation. Superimposed over the right renal shadow there is a 6 mm calcification consistent with a nonobstructing nephrolith. Is present on the previous study as well, and is not changed. RAD/Lumbar Spine 2 or 3 Views IMPRESSION: No acute lumbar spine fracture or subluxation. at 0359 Reported and signed by: Skip Eldridge MD Electronically Signed: Skip Eldridge MD at 3:58 EDT Tel , Service support ,
--- NOTE | 2019-06-12 03:15 | RAD_ITS ---
HISTORY: PPainRAD - Hip EXAM: Exam is AP pelvis, AP of the right hip, frog-leg lateral right hip, Comparison study most recently as May 07, 2019. Findings: Bilateral total hip prostheses remain. Both acetabular components have been screwed in place. Osteophytes project off of the areas of the anterior inferior iliac spine above the prostheses, possibly representing calcific tendinosis. The femoral components of the prostheses both appear to be well aligned with the acetabular component. No evidence of malalignment. No fracture is perceived. Sacroiliac joint arthritis persists. Degenerative disc disease and facet arthropathy within the lower lumbar spine. RAD/HIP, UNI W/ Pelvis 2-3 Views IMPRESSION: No change. No acute disease perceived. at 9726 Reported and signed by: Skip Eldridge MD Electronically Signed: Skip Eldridge MD at 3:55 EDT Tel , Service support ,
--- NOTE | 2019-06-12 03:16 | ED.VIS.GEN ---
History of Present Illness Chief Complaint: Other, Pain/Inj Informant: Patient Onset: Yesterday Narrative: Increasing right lumbar pain right hip pain for the past 24 hours. No trauma. Seen in the ED earlier today, told to continue her ibuprofen and muscle relaxers. She took ibuprofen 1 PM yesterday prior to being seen in the ED. Denies history of gastric ulcers or kidney injury. She is not taking her muscle relaxer however does have prescription for this at home. No loss of bowel or bladder control. History of bilateral total hip arthroplasty. No paresthesias or weakness. Able to ambulate. There is no imaging performed earlier due to no trauma. However to right now patient would like images performed. She is followed by Dr. Rogers. Prior similar symptoms: Yes Past Medical History - Allergies and Home Meds Allergies/Adverse Reactions: Allergies enalapril Adverse Reaction (Verified 06/12/19 02:54) COUGH lisinopril Adverse Reaction (Verified 06/12/19 02:54) COUGH Primary Care Physician: Lamberto Rogers MD [Primary Care Provider] - Surgical History: - - lumbar sacral trauma due to fall on a fiberglass boat, bilateral hip replacement Smoking Status: Current every day smoker - Family History Maternal Family History: Reports: - - diabeties,heart disease Paternal Family History: Reports: - - colon cancer at age 55-58 Review of Systems General: Denies: Chills, Fever, Sweats Eyes: Denies: Visual changes - bilaterally, Diplopia ENT: Denies: Rhinorrhea, Sore throat Cardiovascular: Denies: Chest pain, Palpitations Respiratory: Denies: Dyspnea, Cough, Dyspnea on exertion Gastrointestinal: Denies: Abdominal pain, Nausea, Vomiting, Diarrhea, Melena, Hematochezia Genitourinary: Denies: Dysuria, Hematuria, Frequency Musculoskeletal: Reports: Arthralgias, Back pain. Denies: Extremity Pain Skin: Denies: Rash, Wounds Neurological: Denies: Headache, Weakness, Numbness Physical Exam Vital Signs/Narrative: Vital Signs Temp Pulse Resp BP Pulse Ox 06/12/19 02:51 97.8 F 110 H 15 157/82 H 96 Inital Vital Signs reviewed: Yes General: Well nourished, Well developed, No Acute Distress Head: Normocephalic, Atraumatic Eyes: Perrl, EOMI ENT: Moist mucous membranes, No rhinorrhea Neck: Supple, Nontender Cardiovascular: Regular rate, Regular rhythm, No murmurs Respiratory: No distress, CTA bilaterally, Chest nontender Abdomen: Soft, Nontender, Nondistended, Normal bowel sounds Back: Normal Inspection, - - Tender palpation right paralumbar, straight leg test was negative. 1+ patellar reflex bilaterally. Pulses intact distally. Extremities: Nontender, No edema Skin: Normal color, No rash Neurological: Alert, Oriented x3, Cranial nerves II-XII grossly intact, Normal Strength, Normal Sensation Psychological: Normal affect, Normal Mood Diagnostic/Tx/Re-eval Clinical Impression(s) from Imaging Studies Hip/Pelvis X-Ray 06/12/19 03:15 IMPRESSION: No change. No acute disease perceived. at 0356 Reported and signed by: Skip Eldridge MD Electronically Signed: Skip Eldridge MD at 3:55 EDT Tel , Service support , Lumbar Spine X-Ray 06/12/19 03:15 IMPRESSION: No acute lumbar spine fracture or subluxation. at 7801 Reported and signed by: Skip Eldridge MD Electronically Signed: Skip Eldridge MD at 3:58 EDT Tel , Service support , - Medical Decision Making Patient stable. With concerns of back pain hip pain, image studies were obtained chronic stable changes. Toradol was given with improvement. She will continue Motrin and her muscle relaxers. She will follow-up with her PCP. All questions were answered. ED Disposition - Plan for ED Patient: Disposition: Home or Assisted Living Diagnosis: Right hip pain, Degenerative joint disease of low back Instructions: Possible Causes of Low Back or Leg Pain Referrals: Lamberto Rogers MD [Primary Care Provider] - 3-5 Days Additional Instructions: X-ray of her lumbar spine and right hip and pelvis stable changes. Continue your ibuprofen and your muscle relaxer. Follow-up with your doctor.
[2019-06-12] MEDS: Ketorolac 60 MG/2 ML Vial IM (03:42)
[2019-06-12 04:04] VITALS: BP 174/77; PULSE 78; RESP 15; O2SAT 97
== END 2019-06-12 04:15 | disposition home or self-care (01) ==
PROVIDERS: Emergency Provider Emergency Medicine; Family Provider Family Medicine; PCP Family Medicine
DX: M51.37 Other intervertebral disc degeneration, lumbosacral region (principal); M25.551 Pain in right hip; F17.200 Nicotine dependence, unspecified, uncomplicated; Z96.643 Presence of artificial hip joint, bilateral; Z79.899 Other long term (current) drug therapy
CPT/HCPCS: 72100; 73502; 96372; 99282

== ENCOUNTER 2019-08-06 17:45 | Inpatient (IN) | payer MEDICARE, MEDICAID, SELFPAY ==
[2019-08-06 17:46] VITALS: BP 156/79; PULSE 101; RESP 16; TEMP 36.9; O2SAT 95; BMI 40.4
--- NOTE | 2019-08-06 18:03 | ED.RN ---
PT INFORMED THIS NURSE THAT SHE HAD A MRI DONE IN MAY, OF THE BRAIN, AND A FOLLOW UP MRI DONE ON HER BRAIN AND SCHEDULED LASER SURGERY AT [facility] ON ; BUT THEY COULDN'T DO IT BECAUSE I DIDN'T SHOW UP DR. LARES INFORMED OF SAME.
--- NOTE | 2019-08-06 18:08 | CT_ITS ---
STUDY: CT BRAIN WITHOUT CONTRAST REASON FOR EXAM: Female, 58 years old. Dizziness RADIATION DOSAGE (If Supplied By Facility): CTDIvol = ( 44.99 ) mGy, DLP = ( 796.11 ) mGycm TECHNIQUE: Transaxial CT imaging of the brain was performed without administration of intravenous contrast material. Individualized dose optimization techniques were used for this CT. COMPARISON: No relevant priors. FINDINGS: Normal soft tissue structures. Normal calvarium. There is mild cerebral atrophy with widening of the extra-axial spaces and ventricular dilatation. There is significant periventricular parenchymal hypodensity which is nonspecific in nature however, it appears advanced for patient's age. Normal basal ganglia and thalami. Normal brainstem. Normal cerebellum. There is no intracranial hemorrhage. There are no findings of an acute ischemic infarction. Normal visualized paranasal sinuses. CT/Brain/Head without Contrast IMPRESSION: No acute intracranial pathology however, there is periventricular hypodensity which is significant for patient's age. Nonspecific demyelinating white matter disease cannot be excluded. Brain MRI with contrast is recommended to further evaluate. Electronically Signed: Gurpreet Sommers DO at 19:06 EDT Tel , Service support ,
--- NOTE | 2019-08-06 18:09 | ED.VISSUMM ---
- ER Visit Summary Date of Service: 08/06/19 Chief Complaint: Dizziness History of Present Illness: The patient is a 58 F who presents with dizziness that began today. Patient states that it feels like something is moving around in her head. Patient states it started in the left postauricular area and then moved to the right frontal area. Patient states this has been constant. Patient states nothing makes it better or worse. Patient admits to a headache. Patient denies any paresthesias or weakness. Patient denies any fevers or chills. Physical Examination: Vital signs are stable. Patient is afebrile. Patient is in no acute distress. Pupils are equal, round, and reactive to light bilaterally. Extraocular muscles are intact. There is no nystagmus noted. Oral mucosa is pink and moist. Neck is supple. Trachea is midline. There is no JVD noted. Heart was regular rate and rhythm. Lungs are clear and equal bilateral. Abdomen is soft. Bowel sounds are normal. There is no tenderness. There is no guarding noted. Skin is warm dry. Cranial nerves II through XII are intact. There are no focal motor or sensory deficits noted. Test Results: CT scan shows periventricular hypodensity. Nonspecific demyelinating white matter disease cannot be excluded. MRI with contrast is recommended for further evaluation by radiologist. CBC was essentially within normal limits. Basic metabolic profile showed a creatinine of 1.16 which is elevated from previous result. Urinalysis shows leukocyte esterase of 500 with 10-25 white blood cells. Serum alcohol and urine tox screen were ordered and are pending. Emergency Department Course and Treatment: Patient was given IV fluids here. Case was discussed with the hospitalist. She will be in to evaluate the patient. Patient will be admitted for observation. Patient understood and was agreeable with the plan. All questions were answered. Disposition: Admit for observation Impression: 1. Dizziness 2. Dehydration This note was generated with [employer] dictation software. It may contain incorrect words, spelling, and punctuation that were not noted in review of the chart prior to signing ED Disposition - Plan for ED Patient: Disposition: Acute Care Hospital [facility] Diagnosis: Dizziness, Dehydration Referrals: Lamberto Rogers MD [Primary Care Provider] -
[2019-08-06 18:16] VITALS: BP 146/55; BP 151/73; BP 172/84; PULSE 94; PULSE 95; PULSE 99
[2019-08-06 18:37] LABS: Mucous, Urine 0 SEEN /hpf (<or=2+); Red Blood Cells-Urine 0 SEEN /hpf (0-5)
[2019-08-06 18:46] LABS: Color, Urine Yellow (Yellow); Glucose, Dipstick Normal (Normal); Ketone-Dipstick 5 mg/dl (Negative); Leukocyte Esterase-Dipstick 500 /ul (Negative); Nitrite-Dipstick Negative (Negative); Occult Blood-Urine 10 /ul (Negative); Protein-Dipstick 30 mg/dl (Negative); Specific Gravity, Urine 1.025 (1.002-1.030); Urine Bilirubin Dipstick Negative (Negative); Urine Clarity Sl. Cloudy (Clear); Urine Urobilinogen Normal (Normal)
[2019-08-06 18:50] LABS: Absolute Lymphocyte Count 2.95 X10^3/uL (0.83-4.51); Absolute Neutrophil Count 5.7 X10^3/uL (2.0-7.7); Basophil# 0.07 X10^3/uL; Basophil% 0.7 % (0-1); Eosinophils% 3.9 % (0-5); Hematocrit 42.5 % (37-47); Lymphocyte # 2.95 X10^3/ul (4.0); Mean Corp Hgb Conc 32.9 g/dL (32-36); Mean Corpuscular Hgb 31.6 pg (27.0-32.0); Mean Corpuscular Volume 95.9 fL (81-99); Mean Platelet Vol. 9.9 fl (6.2-12.0); Monocyte# 1.02 X10^3/uL; NRBC Flagged by Analyzer 0 % (0-5); Neutrophil # 5.68 X10^3/uL (2.7-7.7); Platelet Count 303 K/mm3 (150-450); RBC Distribution Width CV 13.5 % (11.6-14.6); RBC Distribution Width SD 48.1 fl (35.1-43.9); Red Blood Count 4.43 M/mm3 (4.2-5.4); White Blood Count 10.2 K/mm3 (4.4-11.0)
[2019-08-06 18:53] LABS: Bacteria 1+ /hpf (None Seen); Squamous Epithelial Cells - UA 0-5 SEEN /hpf (5-10); White Blood Cells 10-25 SEEN /hpf (0-5)
[2019-08-06 19:02] LABS: Anion Gap 4 (5-15); BUN 21 mg/dL (7-18); BUN/Creat Ratio 18.1 RATIO (10-20); Calcium,Total 9.9 mg/dL (8.5-10.1); Chloride 110 mmol/L (98-107); Creatinine, Serum 1.16 mg/dL (0.55-1.02); EST Glomerular Filtration Rate 51 mL/min (>60); Est Glom Filt Rate - Afr Amer 62 mL/min (>60); Estimated Creatinine Clearance 45.65 ml/min; Glucose 101 mg/dL (74-106); Potassium 3.6 mmol/L (3.5-5.1); Sodium Level 140 mmol/L (136-145)
--- NOTE | 2019-08-06 19:33 | PCM.HP.STD ---
Problem List (1) UTI (urinary tract infection) Status: Acute Qualifiers: Urinary tract infection type: acute cystitis (2) Cephalgia Status: Acute Qualifiers: Headache type: unspecified (3) Orthostasis Status: Acute (4) Renal insufficiency Status: Acute (5) HLD (hyperlipidemia) Status: Chronic Qualifiers: Hyperlipidemia type: unspecified Qualified Code(s): E78.5 - Hyperlipidemia, unspecified (6) Morbid obesity Status: Chronic (7) HTN (hypertension) Status: Chronic Qualifiers: Hypertension type: essential hypertension Qualified Code(s): I10 - Essential (primary) hypertension History of Present Illness Date of Admission: 08/06/19 Chief Complaint: Abnormal sensation in her head The patient is a 58 y/o F w/ PMHx: HTN, HLD, Morbid Obesity, Tobacco use, Depression who presents to the [facility] ED on 08/06/19 with history of onset today sensation of water moving in a tube inside her head with no other associated abnormal neurological complaints, no orientation change and no recent illnesses; however, notes sensation of acute UTI with dysuria and frequency at the same time. In the ED patient unable to give exact time of onset of abnormal head sensation but does state it started in the morning on day of ED presentation and notes UTI type sxs onset over the last several days with no fever or chills. In the ED work-up included T 98.4, heart rate initially 101 with repeat 78, BP 156/79, respiratory rate 16, 95% on room air with positive orthostatic vital signs, unremarkable CBC, BMP with chloride 110, BUN/creatinine 21/1.16, urinalysis with elevated specific gravity 1.025, protein 30, occult blood 10, leukocyte esterase 500, W BC 10-25, 1+ bacteria, urine culture pending per ED, CT brain with no acute intercranial pathology however noted periventricular hypodensity significant for patient's age with inability to rule out or exclude nonspecific demyelinating white matter disease, KG with sinus rhythm with no acute evidence of ischemia. In the ED patient ministered normal saline. Past Medical History Past Medical History (Chronic Problems): Chronic Problems HLD (hyperlipidemia) (Chronic) Morbid obesity (Chronic) Primary osteoarthritis of left hip (Chronic) HTN (hypertension) (Chronic) Diabetes (Chronic) Spinal stenosis (Chronic) Allergies enalapril Adverse Reaction (Verified 08/06/19 17:45) COUGH lisinopril Adverse Reaction (Verified 08/06/19 17:45) COUGH Home Medications: Ambulatory Orders Medication Instructions Recorded Amitriptyline HCl [Elavil] 10 mg PO QHS 12/12/16 Amlodipine [Norvasc] 10 mg PO DAILY 02/06/17 cycloBENZAPRine HCl [Flexeril] 10 mg PO TID PRN PRN 02/06/17 Atorvastatin Calcium [Lipitor] 10 mg PO QHS 06/12/17 Fluoxetine HCl 20 mg PO DAILY 08/06/19 Surgical History: - - lumbar sacral trauma due to fall on a fiberglass boat, bilateral hip replacement. 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 Tobacco Use: Cigarettes Alcohol: None Drugs: None - *Family History Maternal History Items: - - diabeties,heart disease Paternal History Items: - - colon cancer at age 55-58 Review of Systems Constitutional: Denies: Chills, Fever, Weight Change HEENT: Reports: - - Abnormal sensation in her head, specifically water sloshing around.. Denies: Head Aches, Sinus Congestion, Sinus Drainage Cardiovascular: Denies: Chest Pain, Palpitations Respiratory: Denies: Cough, Shortness of breath at rest, Sputum production Gastrointestinal: Denies: Abdominal Pain, Nausea, Vomiting Genitourinary: Reports: Dysuria, Frequency, Urgency Musculoskeletal: Reports: Joint Pain. Denies: Joint Tenderness Skin: Denies: Rash, Wounds Neurological: Denies: Numbness, Tingling, Focal weakness Psychiatric: Reports: Depression. Denies: Anxiety, Homicidal Ideations, Suicidal Ideations Hematologic/ Lymphatic: Denies: Easy Bruising, Easy Bleeding VTE Information - Inpt Only VTE Present on Admission: No VTE Mechan Device Prophylaxis: SCD's VTE Pharm Prophylaxis ordered?: Yes Patient Problems: Active and Suspected Problems Dizziness (Acute) Dehydration (Acute) Renal insufficiency (Acute) Orthostasis (Acute) Cephalgia (Acute) Subjective: Seated upright in the ED bed, no acute complaints at this time. Objective: Physical Examination: General: awake, alert, oriented x 3 and cooperative, seated upright in the ED bed, no acute distress, notes still ongoing abnormal sensation in her head as if there is water flowing through tube in her head. Skin: normal color, turgor, no icterus, cyanosis. HEENT: AT/NC, EOMI, PERRLA, dry MM, no carotid bruits or JVD noted. Lungs: CTA bilaterally, moderate effort, mild decrease BL bases, no rales, ronchi or wheezing. Heart: Regular rate and rhythm; no gallop, rub audible. Abdomen: soft, morbidly obese, NTTP, ND, normal BS, no HSM. Extremities: no cyanosis, clubbing, bilateral ankle edema present, compression stockings on. Neurological: patient awake, alert, oriented x 3; cognitive function intact; pupils equally reactive to light and accomodation; cranial nerves II-XII grossly normal, moving all 4 extremities, no focal deficits, strength preserved, sensation intact, finger-nose and [id number] appropriate, negative Babinski. Psychiatric: affect appears mildly flat, no acute evidence of depressive or anxiety feelings. - Physical Exam Vital Signs Temp Pulse Resp BP Pulse Ox 98.4 F 95 16 146/55 H 95 08/06/19 17:46 08/06/19 18:16 08/06/19 17:46 08/06/19 18:16 08/06/19 17:46 Oxygen Delivery Method Room Air Weight: 235 lb 7.259 oz Body Mass Index (BMI) 40.4 Finger Stick Blood Glucose 107 Laboratory Tests Past 24 Hrs 08/06/19 08/06/19 08/06/19 18:30 18:40 18:40 WBC 10.2 RBC 4.43 Hgb 14.0 Hct 42.5 MCV 95.9 MCH 31.6 MCHC 32.9 RDW Std Deviation 48.1 H RDW Coeff of Mark 13.5 Plt Count 303 MPV 9.9 Immature Gran % (Auto) 0.400 Neut % (Auto) 56.0 Lymph % (Auto) 29.0 [place] % (Auto) 10.0 Eos % (Auto) 3.9 Baso % (Auto) 0.7 Absolute Neuts (auto) 5.7 Absolute Lymphs (auto) 2.95 Nucleated RBC % 0 Sodium 140 Potassium 3.6 Chloride 110 H Carbon Dioxide 26.0 Anion Gap 4 L BUN 21 H Creatinine 1.16 H Estim Creat Clear Calc 45.65 Est GFR (MDRD) Af Amer 62 Est GFR (MDRD) Non-Af 51 L BUN/Creatinine Ratio 18.1 Glucose 101 Calcium 9.9 Urine Color Yellow Urine Clarity Sl. Cloudy Urine pH 5.0 Ur Specific [place] 1.025 Urine Protein 30 H Urine Glucose (UA) Normal Urine Ketones 5 H Urine Occult Blood 10 H Urine Nitrite Negative Urine Bilirubin Negative Urine Urobilinogen Normal Ur Leukocyte Esterase 500 H Urine RBC 0 SEEN Urine WBC 10-25 SEEN Ur Squamous Epith Cells 0-5 SEEN Urine Bacteria 1+ Urine Mucus 0 SEEN Urine Opiates Screen Urine Methadone Screen Ur Barbiturates Screen Ur Phencyclidine Scrn Ur Amphetamines Screen U Methamphetamin-MDMA U Benzodiazepines Scrn Urine Cocaine Screen U Cannabinoids Screen Ur Drug Screen Comment Ethyl Alcohol 08/06/19 08/06/19 18:40 18:55 WBC RBC Hgb Hct MCV MCH MCHC RDW Std Deviation RDW Coeff of Mark Plt Count MPV Immature Gran % (Auto) Neut % (Auto) Lymph % (Auto) [place] % (Auto) Eos % (Auto) Baso % (Auto) Absolute Neuts (auto) Absolute Lymphs (auto) Nucleated RBC % Sodium Potassium Chloride Carbon Dioxide Anion Gap BUN Creatinine Estim Creat Clear Calc Est GFR (MDRD) Af Amer Est GFR (MDRD) Non-Af BUN/Creatinine Ratio Glucose Calcium Urine Color Urine Clarity Urine pH Ur Specific [place] Urine Protein Urine Glucose (UA) Urine Ketones Urine Occult Blood Urine Nitrite Urine Bilirubin Urine Urobilinogen Ur Leukocyte Esterase Urine RBC Urine WBC Ur Squamous Epith Cells Urine Bacteria Urine Mucus Urine Opiates Screen Pending Urine Methadone Screen Pending Ur Barbiturates Screen Pending Ur Phencyclidine Scrn Pending Ur Amphetamines Screen Pending U Methamphetamin-MDMA Pending U Benzodiazepines Scrn Pending Urine Cocaine Screen Pending U Cannabinoids Screen Pending Ur Drug Screen Comment Ethyl Alcohol 4.0 Assessment/Plan All Active Problems UTI (urinary tract infection) (Acute) Dizziness (Acute) Dehydration (Acute) Renal insufficiency (Acute) Orthostasis (Acute) Cephalgia (Acute) Closed left hip fracture (Acute) Closed left hip fracture (Acute) Hypokalemia (Acute) The patient is a 58 y/o F w/ PMHx: HTN, HLD, Morbid Obesity, Tobacco use, Depression who presents to the [facility] ED on 08/06/19 with history of onset today sensation of water moving in a tube inside her head with no other associated abnormal neurological complaints, no orientation change and no recent illnesses; however, notes sensation of acute UTI with dysuria and frequency at the same time. 1. Acute Urinary Tract Infection: UA upon ED evaluation remarkable, pending UCx continue IVFs, monitor I/Os, continue IV Rocephin w/ transition as able pending sensitivities and speciation. 2. Abnormal Cephalgia with Abnormal CT head: Given atypical CT head which may be over read but atypical patient complaints, will obtain MRI brain with contrast in addition to MRA Head and Neck to avoid repeat MRI needs, defer any echo pending MRI findings as may be unremarkable. Until MRI obtained in a.m. will allow permissive hypertension with medication parameters, initiate aspirin therapy, already on statin with AM FLP, fall precautions, hemoglobin A1c pending, magnesium pending, TSH pending. 3. Renal insufficiency with orthostasis with dehydration: Specific gravity elevated, admission BUN/creatinine 21/1.16 with baseline 0.8, poor oral intake suspected but patient is a very poor historian I do suspect some of this is secondary to underlying psychiatric disease, will administer additional IV fluid bolus and continue maintenance IV fluids, repeat BMP in a.m. 4. Morbid Obesity: Weight loss and lifestyle changes encouraged, nutrition consulted. 5. Hypertension: Will temporarily hold patient home Norvasc pending MRI brain. 6. Hyperlipidemia: Continue home statin regimen. AM FLP. 7. Anxiety and depression: Continue home fluoxetine regimen. 8. Tobacco Abuse: Encouraged cessation, inpatient consultation per RT, NR if desired. 9. Possible CT: Notes upcoming sleep apnea testing outpatient, suspected. 10. DVT prophylaxis: SCDs, Lovenox. Code Visit OBSV E&M: [id number] Initial observation care L3
[2019-08-06] MEDS: 0.9% Normal Saline 1,000 ML 1000 ML IV (19:34)
[2019-08-06 19:37] VITALS: BP 145/77; PULSE 78; RESP 16; O2SAT 99
[2019-08-06 19:38] LABS: Amphetamine Urine VISTA NEGATIVE (<1000 ng/mL); Barbiturate Urine VISTA NEGATIVE (< 200 ng/mL); Benzodiazepine Urine VISTA NEGATIVE (< 200 ng/mL); Cocaine Urine VISTA NEGATIVE (< 300 ng/mL); Ecstacy Urine VISTA NEGATIVE (< 500 ng/mL); Methadone Urine VISTA NEGATIVE (< 300 ng/mL); PCP Urine VISTA NEGATIVE (< 25 ng/mL); THC Urine VISTA NEGATIVE (< 50 ng/mL); Vista UDS pH Range 6
[2019-08-06 20:23] VITALS: BMI 39.8
[2019-08-06 20:24] VITALS: BP 149/74; PULSE 76; RESP 18; TEMP 36.9; O2SAT 97
[2019-08-06 20:56] VITALS: BMI 39.8
[2019-08-06 20:59] LABS: Hemoglobin A1c 6.4 % (4.2-6.3)
[2019-08-06 21:02] LABS: Magnesium 2.4 mg/dL (1.6-2.6); Thyroid Stim Hormone (TSH) 2.89 uIU/mL (0.358-3.74)
[2019-08-06 21:26] VITALS: PULSE 77
[2019-08-06] MEDS: 0.9% Normal Saline 1,000 ML 999 ML IV (21:34)
[2019-08-06] MEDS: Acetaminophen 325 MG Tablet 650 MG PO (21:50)
[2019-08-06] MEDS: 0.9% NaCl Peripheral Flush Adult/Peds IV (21:50)
[2019-08-06] MEDS: Aspirin 81 MG TAB.CHEW PO (21:55)
[2019-08-06] MEDS: Amitriptyline 10 MG Tablet PO (21:58)
[2019-08-06] MEDS: Atorvastatin Calcium 10 MG Tablet PO (21:58)
[2019-08-06 22:06] LABS: Bedside Glucose 97 mg/dL (70-110)
[2019-08-06] MEDS: 0.9% Normal Saline 1,000 ML 125 ML IV (22:43)
[2019-08-06] MEDS: Ceftriaxone 1 GM/50 ML BAG IV (22:44)
[2019-08-07] VITALS (16 sets, daily range): BP systolic 130–181; BP diastolic 59–102; PULSE 65–88; RESP 16–18; TEMP 36.4–36.9; O2SAT 94–97
[2019-08-07 04:50] LABS: Absolute Lymphocyte Count 3.03 X10^3/uL (0.83-4.51); Absolute Neutrophil Count 4.3 X10^3/uL (2.0-7.7); Basophil# 0.09 X10^3/uL; Eosinophil# 0.46 X10^3/uL; Eosinophils% 5.2 % (0-5); Hematocrit 38.7 % (37-47); Hemoglobin 12.5 g/dL (12.0-15.0); Lymphocyte # 3.03 X10^3/ul (4.0); Lymphocyte % 34.1 % (19-41); Mean Corp Hgb Conc 32.3 g/dL (32-36); Mean Platelet Vol. 10.3 fl (6.2-12.0); Monocyte% 11.2 % (0-10); NRBC Flagged by Analyzer 0 % (0-5); Neutrophil # 4.29 X10^3/uL (2.7-7.7); Neutrophil % 48.3 % (47-70); Platelet Count 249 K/mm3 (150-450); RBC Distribution Width CV 13.6 % (11.6-14.6); RBC Distribution Width SD 48.5 fl (35.1-43.9); Red Blood Count 4.03 M/mm3 (4.2-5.4); White Blood Count 8.9 K/mm3 (4.4-11.0)
[2019-08-07] MEDS: Enoxaparin 40 MG/0.4 ML Syringe SC (05:00)
[2019-08-07 06:11] LABS: Anion Gap 7 (5-15); BUN 16 mg/dL (7-18); BUN/Creat Ratio 20.8 RATIO (10-20); Calcium,Total 8.3 mg/dL (8.5-10.1); Chloride 113 mmol/L (98-107); Cholesterol 176 mg/dL (200); Creatinine, Serum 0.77 mg/dL (0.55-1.02); EST Glomerular Filtration Rate 82 mL/min (>60); Est Glom Filt Rate - Afr Amer 99 mL/min (>60); Estimated Creatinine Clearance 68.77 ml/min; Glucose 130 mg/dL (74-106); High Density Lipoprotein 51 mg/dL; Potassium 3.4 mmol/L (3.5-5.1); Sodium Level 145 mmol/L (136-145); Triglycerides 247 mg/dL; Very Low Density Lipoprotein 49 mg/dL (5-40)
--- NOTE | 2019-08-07 06:16 | EKG12_ITS ---
Test Reason : REPEAT Blood Pressure : / mmHG Vent. Rate : 086 BPM Atrial Rate : 086 BPM P-R Int : 140 ms QRS Dur : 086 ms QT Int : 362 ms P-R-T Axes : 076 055 074 degrees QTc Int : 433 ms Normal sinus rhythm Normal ECG Confirmed by JADEN KELLER, EUGENIE ([id number]), editorial manager SILVIA NAPIER ([id number]) on 08/10/2019 10:59:55 AM Referred By: DANA Confirmed By:EUGENIE STANLEY MD
[2019-08-07 06:46] LABS: Magnesium 2.3 mg/dL (1.6-2.6)
[2019-08-07] MEDS: 0.9% Normal Saline 1,000 ML 125 ML IV (07:01)
[2019-08-07] MEDS: Aspirin 81 MG TAB.CHEW PO (08:11)
[2019-08-07] MEDS: Amitriptyline 10 MG Tablet PO (08:12)
--- NOTE | 2019-08-07 09:02 | ECHOD_ITS ---
Reason For Study: ARRHYTHMIA Procedure This was a 2D Doppler, Color Flow transthoracic echocardiogram. Exam performed portable in patient room. Left Ventricle Normal LV size. The estimated ejection fraction is 70 %. No regional wall motion abnormalities noted. Right Ventricle Normal RV size. Normal systolic function. Atria Normal left atrium. Normal right atrium. Mitral Valve Normal mitral valve. Tricuspid Valve Normal tricuspid valve. Aortic Valve Normal aortic valve. Pulmonic Valve Normal pulmonic valve. Great Vessels Normal aortic root. The pulmonary artery is normal size. Normal inferior vena cava. Pericardium/Pleural No pericardial effusion. MMode/2D Measurements & Calculations LVIDd: 4.6 cm IVSd: 1.3 cm Ao root diam: 2.7 cm LVIDs: 2.9 cm LVPWd: 1.3 cm RVDd: 3.0 cm FS: 37.2 % LAV(MOD-bp): 48.1 ml LA A4 area: 18.1 cm2 LA dimension(2D): 3.1 cm LAV(MOD-bp) Indexed: 23.1 ml/m2 LAV(MOD-sp2): 44.2 ml LAV(MOD-sp4): 51.8 ml Time Measurements MV dec time: 0.23 sec Doppler Measurements & Calculations MV E max alan: 73.4 cm/sec Lat Peak E' Alan: 7.6 cm/sec Med Peak E' Alan: 5.9 cm/sec MV A max alan: 88.1 cm/sec E/E' lat: 9.6 E/E' med: 12.4 MV E/A: 0.83 Ao V2 max: 160.0 cm/sec LV V1 max: 114.0 cm/sec PA V2 max: 107.9 cm/sec Ao max P.2 mmHg LV V1 max P.2 mmHg Interpretation Summary Normal LV size. The estimated ejection fraction is 70 %. Normal tricuspid valve. No regional wall motion abnormalities noted. Ordering Physician: Ronald Ellsworth Referring Physician: Lamberto Rogers Performed By: Lois Enriquez, JOLEEN, RVT
--- NOTE | 2019-08-07 09:08 | EKG12_ITS ---
Test Reason : ABNORMAL RYTHYM Blood Pressure : / mmHG Vent. Rate : 074 BPM Atrial Rate : 074 BPM P-R Int : 148 ms QRS Dur : 088 ms QT Int : 408 ms P-R-T Axes : 060 047 091 degrees QTc Int : 452 ms Sinus rhythm with Premature atrial complexes Nonspecific T wave abnormality Abnormal ECG Confirmed by JADEN KELLER, EUGENIE ([id number]), newspaper or periodical editor SILVIA NAPIER ([id number]) on 08/10/2019 11:00:13 AM Referred By: DANA Confirmed By:EUGENIE STANLEY MD
--- NOTE | 2019-08-07 11:22 | PCM.CONS.C ---
Problem List (1) Sleep apnea Status: Acute (2) UTI (urinary tract infection) Status: Acute Qualifiers: Urinary tract infection type: acute cystitis (3) Dehydration Status: Acute (4) HLD (hyperlipidemia) Status: Chronic Qualifiers: Hyperlipidemia type: unspecified Qualified Code(s): E78.5 - Hyperlipidemia, unspecified (5) Morbid obesity Status: Chronic (6) Renal insufficiency Status: Acute (7) Cephalgia Status: Acute Qualifiers: Headache type: unspecified (8) HTN (hypertension) Status: Chronic Qualifiers: Hypertension type: essential hypertension Qualified Code(s): I10 - Essential (primary) hypertension (9) Hypokalemia Status: Acute (10) Diabetes Status: Chronic Reason for Consult Date of Consultation: 08/07/19 Reason for Consultation: sinus pause lasting more than 5.5seconds while pt was awake, asymptomatic History of Present Illness: The patient is a 58 year old F [significant for having history of chronic kidney disease hypertension morbid obesity sleep apnea presented to hospital with symptoms of UTI and altered mental status changes. Patient was on IV antibiotics and admit to the hospital. While she is on the telemetry she had asymptomatic sinus pauses lasting more than 5.5 seconds for which reason cardiology was consulted. Patient denies any symptoms of chest discomfort or shortness of breath. She informs me that [place] to [place] almost 2 [place] and independent home but has the start of spring and the feeds she came to the hospital with him to acute bronchitis and subsequently was discharged to [facility]. She informs me that she is clinically continue apartment and presented to our hospital with altered mental status changes. She admits to me that she had a stress echocardiogram done approximately 2 years ago when she was in [facility] after she did admit to the hospital with acute bronchitis and had symptoms of chest discomfort. Denies having a left heart catheterization and denies any symptoms of syncope or near syncopal episodes. She informs him that ever since she underwent bilateral hip surgery she stopped driving and always takes a cab to her work. 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[place].She is and lives independently and has a son who is 22 years of age Past Medical History Allergies/Adverse Reactions: Allergies enalapril Adverse Reaction (Verified 08/06/19 17:45) COUGH lisinopril Adverse Reaction (Verified 08/06/19 17:45) COUGH Home Medications: Ambulatory Orders Medication Instructions Recorded Amitriptyline HCl [Elavil] 10 mg PO QHS 12/12/16 Amlodipine [Norvasc] 10 mg PO DAILY 02/06/17 cycloBENZAPRine HCl [Flexeril] 10 mg PO TID PRN PRN 02/06/17 Atorvastatin Calcium [Lipitor] 10 mg PO QHS 06/12/17 Fluoxetine HCl 20 mg PO DAILY 08/06/19 Ibuprofen 100 mg PO PRN 08/06/19 Past Medical History (Chronic Problems): Chronic Problems HLD (hyperlipidemia) (Chronic) Morbid obesity (Chronic) Primary osteoarthritis of left hip (Chronic) HTN (hypertension) (Chronic) Diabetes (Chronic) Spinal stenosis (Chronic) Surgical History: - - lumbar sacral trauma due to fall on a fiberglass boat, bilateral hip replacement. 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 - *Family History Maternal History Items: - - diabeties,heart disease Paternal History Items: - - colon cancer at age 55-58 Lives: Alone Smoking Status: Current every day smoker Tobacco Use: Cigarettes Alcohol: None Drugs: None Objective: Vital Signs Temp Pulse Resp BP Pulse Ox 97.6 F L 83 18 174/59 H 97 08/07/19 04:00 08/07/19 07:48 08/07/19 04:00 08/07/19 04:34 08/07/19 04:00 Oxygen Delivery Method Room Air Weight: 231 lb 14.821 oz Body Mass Index (BMI) 39.8 Finger Stick Blood Glucose 107 Orthostatic Vital Signs Start: 08/07/19 01:49 Freq: 0500 Status: Active Protocol: Activity Type Activity Date Activity User E-Sign Co-Sign Detail Recorded Client Recorded Date Recorded By Document 08/07/19 04:34 [id number] 08/07/19 04:39 [id number] 08/07/19 04:34 Orthostatic Vitals Standing -Blood Pressure (90/60-120/80) 170/99 H -Extremity Use Right Arm -Pulse Rate (60-100) 81 Sitting -Blood Pressure (90/60-120/80) 161/102 H -Extremity Use Right Arm -Pulse Rate (60-100) 82 Lying -Blood Pressure (90/60-120/80) 174/59 H -Extremity Use Right Arm -Pulse Rate (60-100) 86 Intake and Output for Last 24 Hours 08/05/19 08/06/19 08/07/19 23:59 23:59 23:59 Intake Total 2055. / 2175. 1212.92 / 1212.92 Output Total 700 / 700 Balance 2055. / 2175. 512.92 / 512.92 General: Healthy Appearing, Oriented x 3 HEENT: PERRL Oral: Moist Mucosa Neck: Supple, No JVD Lungs: Clear to auscultation Cardiovascular: Regular Rhythm Vascular: No Carotid Bruits Abdomen: Bowel Sounds Present, Soft, Obese Extremities: No edema Neurological: No Focal Motor or Sensory Deficit Psych/Mental Status: Appropriate, Normal Affect 08/06/19 18:30: Urine Color Yellow, Urine Clarity Sl. Cloudy, Urine pH 5.0, Ur Specific [place] 1.025, Urine Protein 30 H, Urine Glucose (UA) Normal, Urine Ketones 5 H, Urine Occult Blood 10 H, Urine Nitrite Negative, Urine Bilirubin Negative, Urine Urobilinogen Normal, Ur Leukocyte Esterase 500 H, Urine RBC 0 SEEN, Urine WBC 10-25 SEEN 08/06/19 18:40: WBC 10.2, RBC 4.43, Hgb 14.0, Hct 42.5, MCV 95.9, MCH 31.6, MCHC 32.9, Plt Count 303, MPV 9.9, Immature Gran % (Auto) 0.400, Neut % (Auto) 56.0, Lymph % (Auto) 29.0, [place] % (Auto) 10.0, Eos % (Auto) 3.9, Baso % (Auto) 0.7, Absolute Neuts (auto) 5.7, Nucleated RBC % 0 08/06/19 18:40: Sodium 140, Potassium 3.6, Chloride 110 H, Carbon Dioxide 26.0, Anion Gap 4 L, BUN 21 H, Creatinine 1.16 H, Est GFR (MDRD) Af Amer 62, Est GFR (MDRD) Non-Af 51 L, BUN/Creatinine Ratio 18.1, Glucose 101, Calcium 9.9 08/06/19 18:40: Magnesium 2.4 08/06/19 18:40: Hemoglobin A1c 6.4 H 08/07/19 04:30: WBC 8.9, RBC 4.03 L, Hgb 12.5, Hct 38.7, MCV 96.0, MCH 31.0, MCHC 32.3, Plt Count 249, MPV 10.3, Immature Gran % (Auto) 0.200, Neut % (Auto) 48.3, Lymph % (Auto) 34.1, [place] % (Auto) 11.2 H, Eos % (Auto) 5.2 H, Baso % (Auto) 1.0, Absolute Neuts (auto) 4.3, Nucleated RBC % 0 08/07/19 04:30: Sodium 145, Potassium 3.4 L, Chloride 113 H, Carbon Dioxide 25.0, Anion Gap 7, BUN 16, Creatinine 0.77, Est GFR (MDRD) Af Amer 99, Est GFR (MDRD) Non-Af 82, BUN/Creatinine Ratio 20.8 H, Glucose 130 H, Calcium 8.3 L, Triglycerides 247 H, Cholesterol 176, LDL Cholesterol 76, VLDL Cholesterol 49 H, HDL Cholesterol 51 08/07/19 04:30: Magnesium 2.3 08/07/19 04:30: Troponin I < 0.015 Rhythm: EKG: ECHO: Stress Test: Cardiac Cath: PCI: CT Surgery: Holter monitor: EPS: PPM: CXR: Chest CT Scan: Assessment/Plan #1 asymptomatic sinus pause lasting more than 5.5 seconds. patient was not on any AV svitlana blocking agents to explain the iatrogenic cause for her sinus pauses. I do believe patient has underlying sick sinus syndrome and would merit a permanent pacemaker. Will have Dr. Carrero see the patient tomorrow for possible pacemaker and I will keep her n.p.o. after midnight. Patient is not on any medications that could cause sinus pauses and she is not on any eyedrops and she is not hypothyroid. I have explained the plan of care to the patient and she clearly understands and consent to proceed with this plan. Will arrange for an echocardiogram to be done prior to the pacemaker tomorrow 2. Hypertension uncontrolled-was on amlodipine 10 mg once a day prior to this hospitalization which should be continued and will add an ARB losartan 50 mg once a day for now and see how she tolerates that. If she still has uncontrolled hypertension I will then optimize the dose of losartan before we add a diuretic to her regimen. 3. Forms me that ever since she underwent bilateral hips surgeries she can walk only for half a mile a day and certainly this can be improved 4. UTI remains on broad-spectrum antibiotic 5. Narcolepsy and sleep apnea functioning that she sleeps very easy and even while sitting in the car she she falls asleep and that is one reason why she has not been driving ever since she underwent bilateral hip replacement she denies have any recent motor vehicle accidents but she does have a valid drivers license Patient informs us that she was awake at 5:30 in the morning and when she had a episode of this sinus pauses she was not sleeping and she was asymptomatic
--- NOTE | 2019-08-07 12:59 | PCM.PROGNOTE ---
<Ronald Ellsworth - Last Filed: 08/07/19 12:59> Patient Problems: Active and Suspected Problems Dizziness (Acute) Sleep apnea (Suspected) Subjective: Resting comfortably in bed semi-naylor NAD. No CP, palpitations, LH, dizziness, or SOB. Denies hx CAD. Had sinus pauses overnight. His primary concern was yesterday he had a feeling of pain that radiated from the left neck to the right top of the head with a feeling of moving water inside his head. No focal deficits, no slurred speech, no facial droop, no numbness/tingling. No hx Stroke. - Physical Exam General: Alert, Oriented x3, Cooperative HEENT: Atraumatic, PERRLA, EOMI, Normocephalic Neck: Supple, No JVD, Negative Carotid Bruits Lungs: Clear to auscultation, Normal air movement Cardiovascular: Regular rate, No murmurs Abdomen: Bowel Sounds Present, Soft, Non Tender, Obese Extremities: No edema, Capillary Refill Less than 3 Seconds Skin: No rashes, No breakdown Musculoskeletal: No Tenderness to Palpation of Joints or Extremities Neurological: Cranial nerves II-XII grossly intact Psych/Mental Status: Normal Affect, Appropriate, Alert and oriented to time, place, person, mood and affect Vital Signs Temp Pulse Resp BP Pulse Ox 97.6 F L 88 18 174/59 H 95 08/07/19 04:00 08/07/19 12:02 08/07/19 04:00 08/07/19 04:34 08/07/19 11:51 Oxygen Delivery Method Room Air Weight: 231 lb 14.821 oz Body Mass Index (BMI) 39.8 Finger Stick Blood Glucose 107 Orthostatic Vital Signs Start: 08/07/19 01:49 Freq: 0500 Status: Active Protocol: Activity Type Activity Date Activity User E-Sign Co-Sign Detail Recorded Client Recorded Date Recorded By Document 08/07/19 04:34 [email or web address] [id number] 08/07/19 04:39 [email or web address] 08/07/19 04:34 Orthostatic Vitals Standing -Blood Pressure (90/60-120/80) 170/99 H -Extremity Use Right Arm -Pulse Rate (60-100) 81 Sitting -Blood Pressure (90/60-120/80) 161/102 H -Extremity Use Right Arm -Pulse Rate (60-100) 82 Lying -Blood Pressure (90/60-120/80) 174/59 H -Extremity Use Right Arm -Pulse Rate (60-100) 86 Intake and Output for Last 24 Hours 08/05/19 08/06/19 08/07/19 23:59 23:59 23:59 Intake Total 2055. / 6.25 1212.92 / 1212.92 Output Total 700 / 700 Balance 6. / 6.25 512.92 / 512.92 Laboratory Tests Past 24 Hrs 08/06/19 08/06/19 08/06/19 18:30 18:40 18:40 WBC 10.2 RBC 4.43 Hgb 14.0 Hct 42.5 MCV 95.9 MCH 31.6 MCHC 32.9 RDW Std Deviation 48.1 H RDW Coeff of Mark 13.5 Plt Count 303 MPV 9.9 Immature Gran % (Auto) 0.400 Neut % (Auto) 56.0 Lymph % (Auto) 29.0 [place] % (Auto) 10.0 Eos % (Auto) 3.9 Baso % (Auto) 0.7 Absolute Neuts (auto) 5.7 Absolute Lymphs (auto) 2.95 Nucleated RBC % 0 Sodium 140 Potassium 3.6 Chloride 110 H Carbon Dioxide 26.0 Anion Gap 4 L BUN 21 H Creatinine 1.16 H Estim Creat Clear Calc 45.65 Est GFR (MDRD) Af Amer 62 Est GFR (MDRD) Non-Af 51 L BUN/Creatinine Ratio 18.1 Glucose 101 Hemoglobin A1c Calcium 9.9 Magnesium Troponin I Triglycerides Cholesterol LDL Cholesterol VLDL Cholesterol HDL Cholesterol TSH Urine Color Yellow Urine Clarity Sl. Cloudy Urine pH 5.0 Ur Specific [place] 1.025 Urine Protein 30 H Urine Glucose (UA) Normal Urine Ketones 5 H Urine Occult Blood 10 H Urine Nitrite Negative Urine Bilirubin Negative Urine Urobilinogen Normal Ur Leukocyte Esterase 500 H Urine RBC 0 SEEN Urine WBC 10-25 SEEN Ur Squamous Epith Cells 0-5 SEEN Urine Bacteria 1+ Urine Mucus 0 SEEN Urine Opiates Screen Urine Methadone Screen Ur Barbiturates Screen Ur Phencyclidine Scrn Ur Amphetamines Screen U Methamphetamin-MDMA U Benzodiazepines Scrn Urine Cocaine Screen U Cannabinoids Screen Ur Drug Screen Comment Ethyl Alcohol 08/06/19 08/06/19 08/06/19 18:40 18:40 18:40 WBC RBC Hgb Hct MCV MCH MCHC RDW Std Deviation RDW Coeff of Mark Plt Count MPV Immature Gran % (Auto) Neut % (Auto) Lymph % (Auto) [place] % (Auto) Eos % (Auto) Baso % (Auto) Absolute Neuts (auto) Absolute Lymphs (auto) Nucleated RBC % Sodium Potassium Chloride Carbon Dioxide Anion Gap BUN Creatinine Estim Creat Clear Calc Est GFR (MDRD) Af Amer Est GFR (MDRD) Non-Af BUN/Creatinine Ratio Glucose Hemoglobin A1c 6.4 H Calcium Magnesium 2.4 Troponin I Triglycerides Cholesterol LDL Cholesterol VLDL Cholesterol HDL Cholesterol TSH 2.89 Urine Color Urine Clarity Urine pH Ur Specific [place] Urine Protein Urine Glucose (UA) Urine Ketones Urine Occult Blood Urine Nitrite Urine Bilirubin Urine Urobilinogen Ur Leukocyte Esterase Urine RBC Urine WBC Ur Squamous Epith Cells Urine Bacteria Urine Mucus Urine Opiates Screen Urine Methadone Screen Ur Barbiturates Screen Ur Phencyclidine Scrn Ur Amphetamines Screen U Methamphetamin-MDMA U Benzodiazepines Scrn Urine Cocaine Screen U Cannabinoids Screen Ur Drug Screen Comment Ethyl Alcohol 4.0 08/06/19 08/07/19 08/07/19 18:55 04:30 04:30 WBC 8.9 RBC 4.03 L Hgb 12.5 Hct 38.7 MCV 96.0 MCH 31.0 MCHC 32.3 RDW Std Deviation 48.5 H RDW Coeff of Mark 13.6 Plt Count 249 MPV 10.3 Immature Gran % (Auto) 0.200 Neut % (Auto) 48.3 Lymph % (Auto) 34.1 [place] % (Auto) 11.2 H Eos % (Auto) 5.2 H Baso % (Auto) 1.0 Absolute Neuts (auto) 4.3 Absolute Lymphs (auto) 3.03 Nucleated RBC % 0 Sodium 145 Potassium 3.4 L Chloride 113 H Carbon Dioxide 25.0 Anion Gap 7 BUN 16 Creatinine 0.77 Estim Creat Clear Calc 68.77 Est GFR (MDRD) Af Amer 99 Est GFR (MDRD) Non-Af 82 BUN/Creatinine Ratio 20.8 H Glucose 130 H Hemoglobin A1c Calcium 8.3 L Magnesium Troponin I Triglycerides 247 H Cholesterol 176 LDL Cholesterol 76 VLDL Cholesterol 49 H HDL Cholesterol 51 TSH Urine Color Urine Clarity Urine pH Ur Specific [place] Urine Protein Urine Glucose (UA) Urine Ketones Urine Occult Blood Urine Nitrite Urine Bilirubin Urine Urobilinogen Ur Leukocyte Esterase Urine RBC Urine WBC Ur Squamous Epith Cells Urine Bacteria Urine Mucus Urine Opiates Screen NEGATIVE Urine Methadone Screen NEGATIVE Ur Barbiturates Screen NEGATIVE Ur Phencyclidine Scrn NEGATIVE Ur Amphetamines Screen NEGATIVE U Methamphetamin-MDMA NEGATIVE U Benzodiazepines Scrn NEGATIVE Urine Cocaine Screen NEGATIVE U Cannabinoids Screen NEGATIVE Ur Drug Screen Comment Ethyl Alcohol 08/07/19 08/07/19 04:30 04:30 WBC RBC Hgb Hct MCV MCH MCHC RDW Std Deviation RDW Coeff of Mark Plt Count MPV Immature Gran % (Auto) Neut % (Auto) Lymph % (Auto) [place] % (Auto) Eos % (Auto) Baso % (Auto) Absolute Neuts (auto) Absolute Lymphs (auto) Nucleated RBC % Sodium Potassium Chloride Carbon Dioxide Anion Gap BUN Creatinine Estim Creat Clear Calc Est GFR (MDRD) Af Amer Est GFR (MDRD) Non-Af BUN/Creatinine Ratio Glucose Hemoglobin A1c Calcium Magnesium 2.3 Troponin I < 0.015 Triglycerides Cholesterol LDL Cholesterol VLDL Cholesterol HDL Cholesterol TSH Urine Color Urine Clarity Urine pH Ur Specific [place] Urine Protein Urine Glucose (UA) Urine Ketones Urine Occult Blood Urine Nitrite Urine Bilirubin Urine Urobilinogen Ur Leukocyte Esterase Urine RBC Urine WBC Ur Squamous Epith Cells Urine Bacteria Urine Mucus Urine Opiates Screen Urine Methadone Screen Ur Barbiturates Screen Ur Phencyclidine Scrn Ur Amphetamines Screen U Methamphetamin-MDMA U Benzodiazepines Scrn Urine Cocaine Screen U Cannabinoids Screen Ur Drug Screen Comment Ethyl Alcohol POC Glucose 08/06/19 21:49 POC Glucose 97 Medical Necessity - Tobacco Use Smoking Status: Current every day smoker Tobacco Use: Cigarettes Assessment/Plan All Active Problems UTI (urinary tract infection) (Acute) Dizziness (Acute) 1. Acute UTI - continue rocephin. Cx pending. No fever/leukocytosis. Tachycardia improved. 2. Sinus pauses - multiple episodes worse >8 secs this AM. Cardiology consulted. Not on rate limiting medications. Asymptomatic. Troponin negative. TSH normal. Mag normal. Replete K+. Echo and EKG ordered. Denies CAD hx. + fm hx CAD. 3. Abnormal CT brain with abnormal head sensations - possible demyelinating dz. MRI with contrast of the brain and MRA head and neck ordered. Tox screen negative. 4. CARLO - resolved. Likely dehydration. No further NSAIDs. 5. HTN - elevated. antihypertensives held as part of concern for CVA. Orthos negative. 6. DMt2 with obesity - dietary eval. Diabetic diet. A1C 6.4 which is fair control. Diet controlled only at home. He would benefit from the addition of an antiglycemic at DC. 7. HLD - continue statin 8. Nicotine abuse - patch 9. Depression - prozac, elavil. DVT ppx: lovenox DC planning: PTOTST. This patient was seen by Ronald Ellsworth PA-C under the supervision of Dr. Garcia. <Aaron Garcia E - Last Filed: 08/07/19 13:21> - Physical Exam Vital Signs Temp Pulse Resp BP Pulse Ox 97.6 F L 88 18 174/59 H 95 08/07/19 04:00 08/07/19 12:02 08/07/19 04:00 08/07/19 04:34 08/07/19 11:51 Oxygen Delivery Method Room Air Weight: 231 lb 14.821 oz Body Mass Index (BMI) 39.8 Finger Stick Blood Glucose 107 Orthostatic Vital Signs Start: 08/07/19 01:49 Freq: 0500 Status: Active Protocol: Activity Type Activity Date Activity User E-Sign Co-Sign Detail Recorded Client Recorded Date Recorded By Document 08/07/19 04:34 [id number] 08/07/19 04:39 [email or web address] 08/07/19 04:34 Orthostatic Vitals Standing -Blood Pressure (90/60-120/80) 170/99 H -Extremity Use Right Arm -Pulse Rate (60-100) 81 Sitting -Blood Pressure (90/60-120/80) 161/102 H -Extremity Use Right Arm -Pulse Rate (60-100) 82 Lying -Blood Pressure (90/60-120/80) 174/59 H -Extremity Use Right Arm -Pulse Rate (60-100) 86 Intake and Output for Last 24 Hours 08/05/19 08/06/19 08/07/19 23:59 23:59 23:59 Intake Total 2055.25 / 2175.25 1212.92 / 1212.92 Output Total 700 / 700 Balance 2055.25 / 2176.25 512.92 / 512.92 Laboratory Tests Past 24 Hrs 08/06/19 08/06/19 08/06/19 18:30 18:40 18:40 WBC 10.2 RBC 4.43 Hgb 14.0 Hct 42.5 MCV 95.9 MCH 31.6 MCHC 32.9 RDW Std Deviation 48.1 H RDW Coeff of Mark 13.5 Plt Count 303 MPV 9.9 Immature Gran % (Auto) 0.400 Neut % (Auto) 56.0 Lymph % (Auto) 29.0 [place] % (Auto) 10.0 Eos % (Auto) 3.9 Baso % (Auto) 0.7 Absolute Neuts (auto) 5.7 Absolute Lymphs (auto) 2.95 Nucleated RBC % 0 Sodium 140 Potassium 3.6 Chloride 110 H Carbon Dioxide 26.0 Anion Gap 4 L BUN 21 H Creatinine 1.16 H Estim Creat Clear Calc 45.65 Est GFR (MDRD) Af Amer 62 Est GFR (MDRD) Non-Af 51 L BUN/Creatinine Ratio 18.1 Glucose 101 Hemoglobin A1c Calcium 9.9 Magnesium Troponin I Triglycerides Cholesterol LDL Cholesterol VLDL Cholesterol HDL Cholesterol TSH Urine Color Yellow Urine Clarity Sl. Cloudy Urine pH 5.0 Ur Specific [place] 1.025 Urine Protein 30 H Urine Glucose (UA) Normal Urine Ketones 5 H Urine Occult Blood 10 H Urine Nitrite Negative Urine Bilirubin Negative Urine Urobilinogen Normal Ur Leukocyte Esterase 500 H Urine RBC 0 SEEN Urine WBC 10-25 SEEN Ur Squamous Epith Cells 0-5 SEEN Urine Bacteria 1+ Urine Mucus 0 SEEN Urine Opiates Screen Urine Methadone Screen Ur Barbiturates Screen Ur Phencyclidine Scrn Ur Amphetamines Screen U Methamphetamin-MDMA U Benzodiazepines Scrn Urine Cocaine Screen U Cannabinoids Screen Ur Drug Screen Comment Ethyl Alcohol 08/06/19 08/06/19 08/06/19 18:40 18:40 18:40 WBC RBC Hgb Hct MCV MCH MCHC RDW Std Deviation RDW Coeff of Mark Plt Count MPV Immature Gran % (Auto) Neut % (Auto) Lymph % (Auto) [place] % (Auto) Eos % (Auto) Baso % (Auto) Absolute Neuts (auto) Absolute Lymphs (auto) Nucleated RBC % Sodium Potassium Chloride Carbon Dioxide Anion Gap BUN Creatinine Estim Creat Clear Calc Est GFR (MDRD) Af Amer Est GFR (MDRD) Non-Af BUN/Creatinine Ratio Glucose Hemoglobin A1c 6.4 H Calcium Magnesium 2.4 Troponin I Triglycerides Cholesterol LDL Cholesterol VLDL Cholesterol HDL Cholesterol TSH 2.89 Urine Color Urine Clarity Urine pH Ur Specific [place] Urine Protein Urine Glucose (UA) Urine Ketones Urine Occult Blood Urine Nitrite Urine Bilirubin Urine Urobilinogen Ur Leukocyte Esterase Urine RBC Urine WBC Ur Squamous Epith Cells Urine Bacteria Urine Mucus Urine Opiates Screen Urine Methadone Screen Ur Barbiturates Screen Ur Phencyclidine Scrn Ur Amphetamines Screen U Methamphetamin-MDMA U Benzodiazepines Scrn Urine Cocaine Screen U Cannabinoids Screen Ur Drug Screen Comment Ethyl Alcohol 4.0 08/06/19 08/07/19 08/07/19 18:55 04:30 04:30 WBC 8.9 RBC 4.03 L Hgb 12.5 Hct 38.7 MCV 96.0 MCH 31.0 MCHC 32.3 RDW Std Deviation 48.5 H RDW Coeff of Mark 13.6 Plt Count 249 MPV 10.3 Immature Gran % (Auto) 0.200 Neut % (Auto) 48.3 Lymph % (Auto) 34.1 [place] % (Auto) 11.2 H Eos % (Auto) 5.2 H Baso % (Auto) 1.0 Absolute Neuts (auto) 4.3 Absolute Lymphs (auto) 3.03 Nucleated RBC % 0 Sodium 145 Potassium 3.4 L Chloride 113 H Carbon Dioxide 25.0 Anion Gap 7 BUN 16 Creatinine 0.77 Estim Creat Clear Calc 68.77 Est GFR (MDRD) Af Amer 99 Est GFR (MDRD) Non-Af 82 BUN/Creatinine Ratio 20.8 H Glucose 130 H Hemoglobin A1c Calcium 8.3 L Magnesium Troponin I Triglycerides 247 H Cholesterol 176 LDL Cholesterol 76 VLDL Cholesterol 49 H HDL Cholesterol 51 TSH Urine Color Urine Clarity Urine pH Ur Specific [place] Urine Protein Urine Glucose (UA) Urine Ketones Urine Occult Blood Urine Nitrite Urine Bilirubin Urine Urobilinogen Ur Leukocyte Esterase Urine RBC Urine WBC Ur Squamous Epith Cells Urine Bacteria Urine Mucus Urine Opiates Screen NEGATIVE Urine Methadone Screen NEGATIVE Ur Barbiturates Screen NEGATIVE Ur Phencyclidine Scrn NEGATIVE Ur Amphetamines Screen NEGATIVE U Methamphetamin-MDMA NEGATIVE U Benzodiazepines Scrn NEGATIVE Urine Cocaine Screen NEGATIVE U Cannabinoids Screen NEGATIVE Ur Drug Screen Comment Ethyl Alcohol 08/07/19 08/07/19 04:30 04:30 WBC RBC Hgb Hct MCV MCH MCHC RDW Std Deviation RDW Coeff of Mark Plt Count MPV Immature Gran % (Auto) Neut % (Auto) Lymph % (Auto) [place] % (Auto) Eos % (Auto) Baso % (Auto) Absolute Neuts (auto) Absolute Lymphs (auto) Nucleated RBC % Sodium Potassium Chloride Carbon Dioxide Anion Gap BUN Creatinine Estim Creat Clear Calc Est GFR (MDRD) Af Amer Est GFR (MDRD) Non-Af BUN/Creatinine Ratio Glucose Hemoglobin A1c Calcium Magnesium 2.3 Troponin I < 0.015 Triglycerides Cholesterol LDL Cholesterol VLDL Cholesterol HDL Cholesterol TSH Urine Color Urine Clarity Urine pH Ur Specific [place] Urine Protein Urine Glucose (UA) Urine Ketones Urine Occult Blood Urine Nitrite Urine Bilirubin Urine Urobilinogen Ur Leukocyte Esterase Urine RBC Urine WBC Ur Squamous Epith Cells Urine Bacteria Urine Mucus Urine Opiates Screen Urine Methadone Screen Ur Barbiturates Screen Ur Phencyclidine Scrn Ur Amphetamines Screen U Methamphetamin-MDMA U Benzodiazepines Scrn Urine Cocaine Screen U Cannabinoids Screen Ur Drug Screen Comment Ethyl Alcohol POC Glucose 08/06/19 21:49 POC Glucose 97 Assessment/Plan Hospitalist note: I am seeing this patient in conjunction with Ronald Ellsworth. I independently seen and examined the patient. Progress note above, laboratory data and imaging studies reviewed and I concur with the above work-up plan. This morning, patient denied any symptoms. She denied headache, dizziness and she mentioned that abnormal sensation in her brain as gone. She denied chest pain or shortness of breath. Denies dizziness or lightheadedness. Denies syncope or presyncope. She had a prolonged sinus pause and patient was asymptomatic. Blood pressure slightly elevated, other vital signs are stable. - Physical Exam General: Alert, Oriented x3, Cooperative, No apparent distress. HEENT: Atraumatic, PERRLA, EOMI. Neck: Supple, No JVD, Negative Carotid Bruits, Trachea Midline, Thyroid Normal. Lungs: Clear to auscultation, Normal air movement, No rhonchi, No wheeze, No rales. Cardiovascular: Regular rate, Regular Rhythm, Normal S1, Normal S2, PMI Normal. Abdomen: Bowel Sounds Present, Soft, Non Tender, Non-Distended, No Hepato-splenomegaly. Extremities: No clubbing, No cyanosis, No edema Skin: No rashes, No breakdown Neurological: Neuro grossly intact Vital Signs are stable.. Assessment and plan: #1 acute cystitis: She is on IV Rocephin, urine culture is pending. She has been afebrile, no leukocytosis. #2 sinus pause: She has prolonged sinus pause. She is not on any medication that can cause AV svitlana block. No cardiac history. Cardiology consulted. 2D echocardiogram ordered. According to cardiology, patient will be seen tomorrow by for possible permanent pacemaker placement. #3 abnormal sensation in her head with abnormal CT scan findings: CT scan brain reviewed, revealed periventricular hypodensity and nonspecific demyelinating white matter disease. MRI brain as well as MRA head and neck ordered. #4 mild dehydration/mild hypokalemia: On IV fluids, kidney function improved. She received K. Dur 60 mEq p.o. this morning. #5 other chronic medical problems: Stable, continue current medications as above. Code Visit OBSV E&M: 39694 Subsequent observation care L2
[2019-08-07] MEDS: Atorvastatin Calcium 10 MG Tablet PO (22:13)
[2019-08-07] MEDS: Ceftriaxone 1 GM/50 ML BAG IV (22:13)
[2019-08-07] MEDS: 0.9% NaCl Peripheral Flush Adult/Peds IV (22:13)
[2019-08-08] VITALS (20 sets, daily range): BP systolic 112–178; BP diastolic 53–102; PULSE 62–107; RESP 14–18; TEMP 36.7–36.8; O2SAT 94–98
--- NOTE | 2019-08-08 05:19 | NURSING ---
Orthos completed for lying and sitting but did not have patient stand due to narcolepsy and patient not able to stay awake.
[2019-08-08 06:28] LABS: Anion Gap 7 (5-15); BUN 11 mg/dL (7-18); Calcium,Total 9.2 mg/dL (8.5-10.1); Chloride 108 mmol/L (98-107); Creatinine, Serum 0.79 mg/dL (0.55-1.02); EST Glomerular Filtration Rate 80 mL/min (>60); Est Glom Filt Rate - Afr Amer 96 mL/min (>60); Estimated Creatinine Clearance 67.03 ml/min; Glucose 111 mg/dL (74-106); Potassium 3.8 mmol/L (3.5-5.1); Sodium Level 141 mmol/L (136-145)
--- NOTE | 2019-08-08 07:43 | PCM.PN.CARD ---
Subjectve: Patient seen and evaluated. Appears to be stable. Objective: Vital Signs Temp Pulse Resp BP Pulse Ox 98.2 F 78 14 155/102 H 96 08/08/19 05:15 08/08/19 07:00 08/08/19 05:15 08/08/19 05:15 08/08/19 05:15 Oxygen Delivery Method Room Air Weight: 231 lb 14.821 oz Body Mass Index (BMI) 39.8 Finger Stick Blood Glucose 107 Orthostatic Vital Signs Start: 08/07/19 01:49 Freq: 0500 Status: Active Protocol: Activity Type Activity Date Activity User E-Sign Co-Sign Detail Recorded Client Recorded Date Recorded By Document 08/08/19 05:15 HS [id number] 08/08/19 05:17 08/08/19 05:15 Orthostatic Vitals Sitting -Blood Pressure (90/60-120/80) 168/94 H -Extremity Use Right Arm -Pulse Rate (60-100) 80 Lying -Blood Pressure (90/60-120/80) 155/102 H -Extremity Use Right Arm -Pulse Rate (60-100) 82 Intake and Output for Last 24 Hours 08/06/19 08/07/19 08/08/19 23:59 23:59 23:59 Intake Total 2056.25 / 2176.25 3448.34 / 3448.34 120 / 120 Output Total 2700 / 2700 Balance 2056.25 / 2176.25 748.34 / 748.34 120 / 120 General: Awake, Alert, Oriented x 3 HEENT: PERRL, EOMI, Sclera Non Icteric Neck: Supple, Good ROM, No Lymph Node Enlargement Lungs: Clear to auscultation Cardiovascular: Regular Rhythm, Normal S1, Normal S2, No Murmurs, No Rubs, No Gallops Vascular: No Carotid Bruits, Normal Femoral Pulses, Normal Radial Pulses, Normal Dorsalis Pedal Pulse, Normal Posterior Tibial Pulses Abdomen: Bowel Sounds Present, Soft, Non Tender, No HSM, No Organomegaly Extremities: No Cyanosis, No Clubbing, No edema Musculoskeletal: No Erythema Skin: No Rashes Lymphatic: No Lymph Node Enlargement Neurological: No Focal Motor or Sensory Deficit Psych/Mental Status: Appropriate 08/07/19 04:30: Troponin I < 0.015 08/08/19 05:50: Sodium 141, Potassium 3.8, Chloride 108 H, Carbon Dioxide 26.0, Anion Gap 7, BUN 11, Creatinine 0.79, Est GFR (MDRD) Af Amer 96, Est GFR (MDRD) Non-Af 80, BUN/Creatinine Ratio 14.0, Glucose 111 H, Calcium 9.2 Rhythm: Normal sinus rhythm with intermittent periods of high-grade AV block. EKG: ECHO: Pending Stress Test: Cardiac Cath: PCI: CT Surgery: Holter monitor: EPS: PPM: CXR: Chest CT Scan: Medical Necessity - Tobacco Use Smoking Status: Current every day smoker Tobacco Use: Cigarettes Assessment/Plan #1 Asymptomatic sinus pause lasting more than 5.5 seconds. patient was not on any AV svitlana blocking agents to explain the iatrogenic cause for her sinus pauses. I do believe patient has underlying sick sinus syndrome and would merit a permanent pacemaker. Review of other telemetry monitoring SPECT strips demonstrates periods of junctional rhythm as well as intermittent high-grade AV block. The exact etiology of the above is not entirely clear. Would recommend permanent pacemaker implantation at this time. Will arrange for later today. Above procedure explained to the patient the risk benefits and alternatives. Echocardiogram to assess left ventricular function prior to the above. 2. Hypertension uncontrolled-was on amlodipine 10 mg once a day prior to this hospitalization which should be continued and will add an ARB losartan 50 mg once a day for now and see how she tolerates that. If she still has uncontrolled hypertension I will then optimize the dose of losartan before we add a diuretic to her regimen. 3. Narcolepsy and sleep apnea- Patient will be evaluated by the pulmonary service. Thank you for allowing me to participate in the care of your patient. Please don't hesitate to call if any issues arise Addendum at 1:46 PM Patient underwent dual-chamber permanent pacemaker successfully. We will watch patient overnight and obtain chest x-ray in a.m. She tolerated the procedure well.
--- NOTE | 2019-08-08 08:00 | MRI_ITS ---
STUDY: MRI BRAIN WITH AND WITHOUT CONTRAST REASON FOR EXAM: Female, 58 years old. CVA, DIZZINESS, F/U TO ABNORMAL CT TECHNIQUE: Standardized multiplanar fat and water weighted pulse sequences were obtained. 20 IV Dotarem was administered for the contrast portion of the examination. COMPARISON: CT brain August 06, 2019 FINDINGS: Normal size of the ventricles and extra-axial spaces for the patient's age. There are multiple white matter hyperintensities, distributed throughout the deep white matter tracts of the cerebral hemispheres, consistent with moderate chronic white matter ischemic changes. There is no evidence for recent intracranial ischemia or other cause of cytotoxic edema on diffusion weighted imaging (DWI). Normal T2* images of the brain without demonstrated susceptibility artifact. There is no demonstrated hemosiderin stain. Normal bilateral basal ganglia. Normal thalami. There is no extra-axial fluid accumulation. Normal flow voids within the major intracranial circulation suggesting patency by spin echo criteria. Normal venous enhancement. There is no enhancing intra-axial or extra-axial abnormality. Normal sella turcica, pituitary gland, infundibular stalk, optic chiasm and hypothalamus. Normal tectal plate and pineal gland. Normal midbrain, belkys and medulla. Normal cerebellum. Normal basal cisterns. Normal bilateral temporal bones. Normal bilateral internal auditory canals. No demonstrated orbital abnormality, within the constraints of a routine brain study. Normal visualized paranasal sinuses. Normal calvarium and skull base. Normal visualized soft tissue structures. Normal visualized upper cervical spine. MRI/Brain W/WO Contrast IMPRESSION: Involutional changes of the brain, as described above. There are moderate chronic white matter ischemic changes without acute superimposed ischemia. The pattern is not specific for demyelination, it has an appearance more consistent with that of small vessel disease. No abnormal enhancement. Electronically Signed: Marci Claire MD at 9:36 EDT , Service support ,
--- NOTE | 2019-08-08 08:30 | MRI_ITS ---
STUDY: MRA OF THE HEAD WITHOUT CONTRAST REASON FOR EXAM: Female, 58 years old. cva, dizziness TECHNIQUE: 3-D [id number] (TOF) imaging was performed with MIPs. The study was performed unenhanced. COMPARISON: MRI of the brain same date. CT brain August 06, 2019 FINDINGS: Normal bilateral petrous carotid arteries. Normal right cavernous carotid artery with a normal supraclinoid bifurcation. Normal left cavernous carotid artery with a normal supraclinoid bifurcation. Normal right A1 segments of the anterior cerebral artery. Normal left A1 segments of the anterior cerebral artery. Normal intact anterior communicating artery (ACOM). Normal bilateral A2 segments of the anterior cerebral arteries. Normal right M1 and M2 segments of the middle cerebral arteries, with a normal M1 bifurcation. Normal left M1 and M2 segments of the middle cerebral arteries, with a normal M1 bifurcation. There is non-visualization of the right posterior communicating artery (PCOM). There is non-visualization of the left posterior communicating artery (PCOM). Normal bilateral vertebral arteries. Dominant right vertebral artery. Normal basilar artery with a normal basilar bifurcation. The visualized bilateral superior cerebellar (SCA) arteries are normal. Normal bilateral P1, P2 and visualized P3 segments of the posterior cerebral arteries. There is no demonstrated aneurysm of the [place] of [place]. There is no major vessel occlusion or hemodynamically significant stenosis. There is no demonstrated abnormality of the visualized brain. MRI/MRA Head ONLY without Contrast IMPRESSION: Normal MRA of the head Electronically Signed: Marci Claire MD at 9:38 EDT , Service support ,
--- NOTE | 2019-08-08 08:30 | MRI_ITS ---
STUDY: MRA NECK WITH AND WITHOUT CONTRAST REASON FOR EXAM: Female, 58 years old. CVA, DIZZINESS TECHNIQUE: 3-D kwhv-[id number] (TOF) imaging was performed in an 1.5 T MRI scanner. 20 IV Dotarem was administered for the contrast enhanced images. COMPARISON: None. FINDINGS: RIGHT CAROTID ARTERIES: Normal right common carotid artery (CCA). Normal right common carotid bulb. Normal origin of the right internal carotid (ICA) artery without a hemodynamically significant stenosis. Normal visualized cervical portion of the right internal carotid artery. Normal origin of the right external carotid artery (ECA). LEFT CAROTID ARTERIES: Normal left common carotid artery (CCA). Normal left common carotid bulb. Normal origin of the left internal carotid (ICA) artery without a hemodynamically significant stenosis. Normal visualized cervical portion of the left internal carotid artery. Normal origin of the left external carotid artery (ECA). VERTEBRAL ARTERIES: Normal antegrade flow within the bilateral vertebral artery without a hemodynamically significant stenosis. Dominant right vertebral artery. MRI/MRA Neck WITH and W/O Contrast IMPRESSION: Normal bilateral cervical carotid and vertebral arteries. Electronically Signed: Marci Claire MD at 9:40 EDT , Service support ,
[2019-08-08] MEDS: 0.9% Normal Saline 1,000 ML 75 ML IV (11:39)
[2019-08-08 12:55] LABS: Mucous, Urine 0 SEEN /hpf (<or=2+); Red Blood Cells-Urine 0 SEEN /hpf (0-5)
[2019-08-08 12:56] LABS: Color, Urine Yellow (Yellow); Glucose, Dipstick Normal (Normal); Ketone-Dipstick Negative (Negative); Leukocyte Esterase-Dipstick 100 /ul (Negative); Nitrite-Dipstick Negative (Negative); Occult Blood-Urine Negative /ul (Negative); Protein-Dipstick Negative (Negative); Specific Gravity, Urine 1.015 (1.002-1.030); Urine Bilirubin Dipstick Negative (Negative); Urine Clarity Clear (Clear); Urine Urobilinogen Normal (Normal); Urine pH 6.5 (5.0 - 8.0)
[2019-08-08 13:04] LABS: Bacteria RARE /hpf (None Seen); Squamous Epithelial Cells - UA 0-5 SEEN /hpf (5-10); White Blood Cells 0-5 SEEN /hpf (0-5)
--- NOTE | 2019-08-08 14:17 | PCM.PN.HOSP ---
Patient Problems: Active and Suspected Problems Dizziness (Acute) Sleep apnea (Suspected) Subjective: Patient seen and examined. She has no complaints today and feels well. She was admitted with a headache but now states she feels better. Review of systems otherwise negative. She is on IV Rocephin for acute cystitis. She was also noted to have prolonged sinus pause. Cardiology was consulted and she is to have pacemaker placement. Labs and vitals reviewed. o/e: Vital Signs Height 5 ft 4 in Weight: 231 lb 14.821 oz Weight in Pounds 231.9 lbs Pulse Ox 95 Temperature 98.2 F Pulse Rate [Standing] 81 Pulse Rate [Sitting] 80 Pulse Rate [Lying] 82 Pulse Rate 80 Respiratory Rate 16 Blood Pressure [Standing] 170/99 Blood Pressure [Sitting] 168/94 Blood Pressure [Lying] 155/102 Blood Pressure 142/53 Blood Pressure Position Supine General: Alert, Oriented x3, Cooperative, No apparent distress. HEENT: Atraumatic, PERRLA, EOMI. Neck: Supple, No JVD, Negative Carotid Bruits, Trachea Midline Lungs: Clear to auscultation, Normal air movement, No rhonchi, No wheeze, No rales. Cardiovascular: Regular rate, Regular Rhythm, Normal S1, Normal S2, PMI Normal. Abdomen: Bowel Sounds Present, Soft, Non Tender, Non-Distended, No Hepato-splenomegaly. Extremities: No clubbing, No cyanosis, No edema Skin: No rashes, No breakdown Neurological: Neuro grossly intact CT brain done on admission showed periventricular hypodensity and nonspecific demyelinating white matter disease. MRI of the brain done today showed involutional changes of the brain as described above with chronic white matter ischemic changes without acute superimposed ischemia. No abnormal enhancement. MRA of the neck showed normal bilateral cervical, carotid and vertebral arteries. Patient is to have pacemaker insertion today on account of prolonged sinus pause. Blood pressure was not well controlled prior to admission. Continue amlodipine 10 once daily and start on losartan 50 mg daily. Patient also does appear to have a history of narcolepsy and sleep apnea and can follow-up with pulmonology on outpatient basis. Rest of management as per Ronald Ellsworth PA-C's notes which I reviewed and endorsed. Vitals/I&O's: Vital Signs Temp Pulse Resp BP Pulse Ox 98.2 F 80 16 142/53 H 95 08/08/19 10:15 08/08/19 10:15 08/08/19 10:15 08/08/19 10:15 08/08/19 10:15 Oxygen Delivery Method Room Air Weight: 231 lb 14.821 oz Body Mass Index (BMI) 39.8 Finger Stick Blood Glucose 107 Orthostatic Vital Signs Start: 08/07/19 01:49 Freq: 0500 Status: Active Protocol: Activity Type Activity Date Activity User E-Sign Co-Sign Detail Recorded Client Recorded Date Recorded By Document 08/08/19 05:15 HS [id number] 08/08/19 05:17 HS 08/08/19 05:15 Orthostatic Vitals Sitting -Blood Pressure (90/60-120/80) 168/94 H -Extremity Use Right Arm -Pulse Rate (60-100) 80 Lying -Blood Pressure (90/60-120/80) 155/102 H -Extremity Use Right Arm -Pulse Rate (60-100) 82 Intake and Output for Last 24 Hours 08/06/19 08/07/19 08/08/19 23:59 23:59 23:59 Intake Total 2056.25 / 2176.25 3448.34 / 3448.34 120 / 120 Output Total 2700 / 2700 Balance 2056.25 / 2176.25 748.34 / 748.34 120 / 120 Microbiology Past 72 Hours 08/06/19 18:30 Urine, Clean Catch Urine Culture - Final Lactobacillus sp. Laboratory Results 08/08/19 05:50: Sodium 141, Potassium 3.8, Chloride 108 H, Carbon Dioxide 26.0, Anion Gap 7, BUN 11, Creatinine 0.79, Estim Creat Clear Calc 67.03, Est GFR (MDRD) Af Amer 96, Est GFR (MDRD) Non-Af 80, BUN/Creatinine Ratio 14.0, Glucose 111 H, Calcium 9.2 08/08/19 11:38: Urine Color Yellow, Urine Clarity Clear, Urine pH 6.5, Ur Specific [place] 1.015, Urine Protein Negative, Urine Glucose (UA) Normal, Urine Ketones Negative, Urine Occult Blood Negative, Urine Nitrite Negative, Urine Bilirubin Negative, Urine Urobilinogen Normal, Ur Leukocyte Esterase 100 H, Urine RBC 0 SEEN, Urine WBC 0-5 SEEN, Ur Squamous Epith Cells 0-5 SEEN, Urine Bacteria RARE, Urine Mucus 0 SEEN Current Medications Acetaminophen (Tylenol) 650 mg PO Q6H PRN PRN PRN Reason: Non-cardiac pain (mod-severe) Last Admin: 08/06/19 21:50 Dose: 650 mg Documented by: Al Hydroxide/Mg Hydroxide (Mylanta Ii) 15 - 30 ml PO Q4H PRN PRN PRN Reason: INDIGESTION Albuterol Sulfate (Ventolin Aerosols) 2.5 mg INHALATION Q2H PRN PRN PRN Reason: dyspnea, wheezing Amitriptyline HCl (Elavil) 10 mg PO QHS [facility] Last Admin: 08/07/19 08:12 Dose: 10 mg Documented by: Amlodipine Besylate (Norvasc) 10 mg PO DAILY [facility] Atorvastatin Calcium (Lipitor) 10 mg PO QHS [facility] Last Admin: 08/07/19 22:13 Dose: 10 mg Documented by: Dextrose (D50w Syringe) 0 gm IV X1 PRN; Protocol PRN Reason: Hypoglycemia Enoxaparin Sodium (Lovenox) 40 mg SC DAILY@0600 [facility] Last Admin: 08/08/19 05:01 Dose: Not Given Documented by: Fluoxetine HCl (Prozac) 20 mg PO DAILY [facility] Last Admin: 08/08/19 14:08 Dose: Not Given Documented by: Glucagon () 1 mg IM .X1 PRN PRN Reason: Hypoglycemia Hydralazine HCl (Apresoline Iv) 5 mg IV Q30M PRN PRN Reason: sbp > 220/120 Sodium Chloride () 250 mls @ 15 mls/hr IV .[id number] PRN PRN Reason: SALINE FLUSH Ceftriaxone Sodium (Rocephin) 1 gm in 50 mls @ 100 mls/hr IV Q24H [facility] Last Infusion: 08/07/19 22:48 Dose: Infused Documented by: Sodium Chloride () 1,000 mls @ 75 mls/hr IV .[id number] [facility] Last Admin: 08/08/19 11:39 Dose: 75 mls/hr Documented by: Losartan Potassium (Cozaar) 50 mg PO BID [facility] Magnesium Hydroxide (Milk Of Magnesia) 30 ml PO DAILY PRN PRN Reason: Constipation Melatonin (Melatonin) 3 mg PO QHS PRN PRN PRN Reason: INSOMNIA Nicotine (Nicoderm Cq (Pbkc)) 14 mg TRANSDERM. DAILY [facility] Last Admin: 08/08/19 14:08 Dose: Not Given Documented by: Ondansetron HCl (Zofran) 4 mg IV Q8H PRN PRN PRN Reason: NAUSEA/VOMITING Sodium Chloride () 10 - 40 ml IV UD PRN PRN Reason: SALINE FLUSH Last Admin: 08/07/19 22:13 Dose: 10 ml Documented by: Medical Necessity - Tobacco Use Smoking Status: Current every day smoker Tobacco Use: Cigarettes Assessment/Plan All Active Problems UTI (urinary tract infection) (Acute) Dizziness (Acute)
--- NOTE | 2019-08-08 14:49 | PN_ITS ---
<Ronald Ellsworth - Last Filed: 08/08/19 14:49> Patient Problems: Active and Suspected Problems Dizziness (Acute) Sleep apnea (Suspected) Subjective: Pt seen and examined post pacemaker implantation today. Lethargic. She c/o mild BL feet pain. She has no CP, pressure, tightness, heaviness. No palp. No SOB. No abdominal pain. - Physical Exam General: Alert, Oriented x3, Cooperative, Lethargic HEENT: Atraumatic, PERRLA, EOMI, Normocephalic Neck: Supple, No JVD, Negative Carotid Bruits Lungs: Clear to auscultation, Normal air movement Cardiovascular: Regular rate, No murmurs Abdomen: Bowel Sounds Present, Soft, Non Tender Extremities: No edema, Capillary Refill Less than 3 Seconds Skin: No rashes, No breakdown Musculoskeletal: No Tenderness to Palpation of Joints or Extremities Neurological: Cranial nerves II-XII grossly intact Psych/Mental Status: Normal Affect, Appropriate, Alert and oriented to time, place, person, mood and affect Vital Signs Temp Pulse Resp BP Pulse Ox 98.0 F 67 14 144/69 H 94 08/08/19 14:05 08/08/19 14:20 08/08/19 14:20 08/08/19 14:20 08/08/19 14:20 Oxygen Delivery Method Room Air Weight: 231 lb 14.821 oz Body Mass Index (BMI) 39.8 Finger Stick Blood Glucose 107 Orthostatic Vital Signs Start: 08/07/19 01:49 Freq: 0500 Status: Active Protocol: Activity Type Activity Date Activity User E-Sign Co-Sign Detail Recorded Client Recorded Date Recorded By Document 08/08/19 05:15 HS [id number] 08/08/19 05:17 HS 08/08/19 05:15 Orthostatic Vitals Sitting -Blood Pressure (90/60-120/80 mm Hg) 168/94 H -Extremity Use Right Arm -Pulse Rate (60-100 beats/min) 80 Lying -Blood Pressure (90/60-120/80 mm Hg) 155/102 H -Extremity Use Right Arm -Pulse Rate (60-100 beats/min) 82 Intake and Output for Last 24 Hours 08/06/19 08/07/19 08/08/19 23:59 23:59 23:59 Intake Total 2056.25 / 2176.25 3448.34 / 3448.34 346.25 / 346.25 Output Total 2700 / 2700 Balance 2056.25 / 2176.25 748.34 / 748.34 346.25 / 346.25 Microbiology Past 72 Hours 08/06/19 18:30 Urine Culture - Final Urine, Clean Catch Lactobacillus sp. Laboratory Tests Past 24 Hrs 08/08/19 08/08/19 05:50 11:38 Sodium 141 Potassium 3.8 Chloride 108 H Carbon Dioxide 26.0 Anion Gap 7 BUN 11 Creatinine 0.79 Estim Creat Clear Calc 67.03 Est GFR (MDRD) Af Amer 96 Est GFR (MDRD) Non-Af 80 BUN/Creatinine Ratio 14.0 Glucose 111 H Calcium 9.2 Urine Color Yellow Urine Clarity Clear Urine pH 6.5 Ur Specific [place] 1.015 Urine Protein Negative Urine Glucose (UA) Normal Urine Ketones Negative Urine Occult Blood Negative Urine Nitrite Negative Urine Bilirubin Negative Urine Urobilinogen Normal Ur Leukocyte Esterase 100 H Urine RBC 0 SEEN Urine WBC 0-5 SEEN Ur Squamous Epith Cells 0-5 SEEN Urine Bacteria RARE Urine Mucus 0 SEEN Medical Necessity - Tobacco Use Smoking Status: Current every day smoker Tobacco Use: Cigarettes Assessment/Plan All Active Problems UTI (urinary tract infection) (Acute) Dizziness (Acute) 1. Acute UTI - continue rocephin. Cx with lactobacillus. Afebrile. UA today improved. Elevated Leuk Est. 2. Sinus pauses - pacemaker placed today. 3. Abnormal CT brain with abnormal head sensations - MRI and MRAs Brain / Head / Neck done this AM prior to pacer implant. Chronic changes on MRI brain with contrast. MRAs negative. DC NIHSS as Acute CVA ruled out. 4. CARLO - resolved. Likely dehydration. No further NSAIDs. 5. HTN - elevated. orthos neg. CVA ruled out. Resumed norvasc, losartan added. 6. DMt2 with obesity - dietary eval. Diabetic diet. A1C 6.4 which is fair control. Diet controlled only at home. He would benefit from the addition of an antiglycemic at DC. 7. HLD - continue statin 8. Nicotine abuse - patch 9. Depression - prozac, elavil. DVT ppx: lovenox DC planning: PTOTST. This patient was seen by Ronald Ellsworth PA-C under the supervision of Allegra Oden - Last Filed: 08/08/19 15:55> - Physical Exam Vital Signs Temp Pulse Resp BP Pulse Ox 98.0 F 63 14 148/75 H 94 08/08/19 14:05 08/08/19 15:05 08/08/19 15:05 08/08/19 15:05 08/08/19 15:05 Oxygen Delivery Method Room Air Weight: 231 lb 14.821 oz Body Mass Index (BMI) 39.8 Finger Stick Blood Glucose 107 Orthostatic Vital Signs Start: 08/07/19 01:49 Freq: 0500 Status: Active Protocol: Activity Type Activity Date Activity User E-Sign Co-Sign Detail Recorded Client Recorded Date Recorded By Document 08/08/19 05:15 HS [id number] 08/08/19 05:17 HS 08/08/19 05:15 Orthostatic Vitals Sitting -Blood Pressure (90/60-120/80) 168/94 H -Extremity Use Right Arm -Pulse Rate (60-100) 80 Lying -Blood Pressure (90/60-120/80) 155/102 H -Extremity Use Right Arm -Pulse Rate (60-100) 82 Intake and Output for Last 24 Hours 08/06/19 08/07/19 08/08/19 23:59 23:59 23:59 Intake Total 2056.25 / 2176.25 3448.34 / 3448.34 346.25 / 346.25 Output Total 2700 / 2700 Balance 2056.25 / 2176.25 748.34 / 748.34 346.25 / 346.25 Microbiology Past 72 Hours 08/06/19 18:30 Urine Culture - Final Urine, Clean Catch Lactobacillus sp. Laboratory Tests Past 24 Hrs 08/08/19 08/08/19 05:50 11:38 Sodium 141 Potassium 3.8 Chloride 108 H Carbon Dioxide 26.0 Anion Gap 7 BUN 11 Creatinine 0.79 Estim Creat Clear Calc 67.03 Est GFR (MDRD) Af Amer 96 Est GFR (MDRD) Non-Af 80 BUN/Creatinine Ratio 14.0 Glucose 111 H Calcium 9.2 Urine Color Yellow Urine Clarity Clear Urine pH 6.5 Ur Specific [place] 1.015 Urine Protein Negative Urine Glucose (UA) Normal Urine Ketones Negative Urine Occult Blood Negative Urine Nitrite Negative Urine Bilirubin Negative Urine Urobilinogen Normal Ur Leukocyte Esterase 100 H Urine RBC 0 SEEN Urine WBC 0-5 SEEN Ur Squamous Epith Cells 0-5 SEEN Urine Bacteria RARE Urine Mucus 0 SEEN Assessment/Plan Patient seen and examined. She has no complaints today and feels well. She was admitted with a headache but now states she feels better. Review of systems otherwise negative. She is on IV Rocephin for acute cystitis. She was also noted to have prolonged sinus pause. Cardiology was consulted and she is to have pacemaker placement. Labs and vitals reviewed. Vital Signs Height 5 ft 4 in Weight: 231 lb 14.821 oz Weight in Pounds 231.9 lbs Pulse Ox 94 Temperature 98.0 F Pulse Rate [Standing] 81 Pulse Rate [Sitting] 80 Pulse Rate [Lying] 82 Pulse Rate 63 Respiratory Rate 14 Blood Pressure [Standing] 170/99 Blood Pressure [Sitting] 168/94 Blood Pressure [Lying] 155/102 Blood Pressure [BP] 148/75 Blood Pressure 112/62 Blood Pressure Position Supine General: Alert, Oriented x3, Cooperative, No apparent distress. HEENT: Atraumatic, PERRLA, EOMI. Neck: Supple, No JVD, Negative Carotid Bruits, Trachea Midline Lungs: Clear to auscultation, Normal air movement, No rhonchi, No wheeze, No rales. Cardiovascular: Regular rate, Regular Rhythm, Normal S1, Normal S2, PMI Normal. Abdomen: Bowel Sounds Present, Soft, Non Tender, Non-Distended, No Hepato- splenomegaly. Extremities: No clubbing, No cyanosis, No edema Skin: No rashes, No breakdown Neurological: Neuro grossly intact CT brain done on admission showed periventricular hypodensity and nonspecific demyelinating white matter disease. MRI of the brain done today showed involutional changes of the brain as described above with chronic white matter ischemic changes without acute superimposed ischemia. No abnormal enhancement. MRA of the neck showed normal bilateral cervical, carotid and vertebral arteries. Patient had dual chamber pacemaker insertion today on account of prolonged sinus pause. Blood pressure was not well controlled prior to admission. Continue amlodipine 10 once daily and start on losartan 50 mg daily. Patient also does appear to have a history of narcolepsy and sleep apnea and can follow-up with pulmonology on outpatient basis. TO have CXR tomorrow morning, per cardiology. Rest of management as per Ronald Ellsworth PA-C's notes which I reviewed and endorsed. Code Visit Inpatient E&M: [id number] Subs Hosp L2
[2019-08-08] MEDS: amLODIPine 10 MG Tablet PO (15:25)
[2019-08-08] MEDS: Acetaminophen 325 MG Tablet 650 MG PO (17:05)
[2019-08-08 17:38] LABS: M R Staph aureus DNA By PCR Negative (Negative); Probe Check PASS; Specimen Processing Control PASS
[2019-08-08] MEDS: Losartan Potassium 50 MG Tablet PO (22:08)
[2019-08-08] MEDS: 0.9% NaCl Peripheral Flush Adult/Peds IV (22:08)
[2019-08-08] MEDS: Amitriptyline 10 MG Tablet PO (22:08)
[2019-08-08] MEDS: Atorvastatin Calcium 10 MG Tablet PO (22:08)
[2019-08-08] MEDS: Ceftriaxone 1 GM/50 ML BAG IV (22:15)
--- NOTE | 2019-08-09 00:11 | RAD_ITS ---
STUDY: X-RAY CHEST REASON FOR EXAM: Female, 58 years old. Pacemaker insertion TECHNIQUE: Single AP portable view of the chest, expiration. COMPARISON: 06/06/2019 FINDINGS: Pacemaker is seen on the left side is in good position. The lungs are underexpanded. There is no demonstrated pleural abnormality. Normal size heart. Normal mediastinum and dwayne. Normal visualized pulmonary arteries. Normal visualized aortic arch and descending thoracic aorta. Normal visualized thoracic spine. Normal visualized ribs, clavicles, and shoulders. There is no demonstrated abnormality of the visualized soft tissue structures of the upper abdomen. RAD/Chest 1 View IMPRESSION: Normal x-ray examination of the chest. Electronically Signed: Tip Jurado, at 7:44 EDT Tel , Service support ,
[2019-08-09 02:36] VITALS: O2SAT 95
[2019-08-09 03:00] VITALS: PULSE 88
[2019-08-09 04:10] VITALS: BP 107/53; PULSE 87; RESP 16; TEMP 36.8; O2SAT 96
--- NOTE | 2019-08-09 04:33 | NURSING ---
Orthostatic vital signs not completed due to patient being complete bedrest s/p pacer insert.
[2019-08-09] MEDS: Enoxaparin 40 MG/0.4 ML Syringe SC (05:02)
--- NOTE | 2019-08-09 05:55 | RAD_ITS ---
STUDY: X-RAY CHEST REASON FOR EXAM: Female, 58 years old. Pacemaker insertion TECHNIQUE: Frontal and lateral views of the chest. COMPARISON: 06/06/2019 FINDINGS: Pacemaker is seen on the left side with 2 leads in good position. The lungs are clear and expanded. There is no demonstrated pleural abnormality. Normal size heart. Normal mediastinum and dwayne. Normal visualized pulmonary arteries. Normal visualized aortic arch and descending thoracic aorta. Normal visualized thoracic spine. Normal visualized ribs, clavicles, and shoulders. There is no demonstrated abnormality of the visualized soft tissue structures of the upper abdomen. RAD/Chest PA and Lateral IMPRESSION: Normal x-ray examination of the chest. Electronically Signed: Tip Jurado, at 7:43 EDT Tel , Service support ,
[2019-08-09 07:00] VITALS: PULSE 79
[2019-08-09 07:50] VITALS: O2SAT 95
[2019-08-09 08:21] LABS: Anion Gap 9 (5-15); BUN 17 mg/dL (7-18); BUN/Creat Ratio 19.2 RATIO (10-20); Calcium,Total 9.1 mg/dL (8.5-10.1); Chloride 107 mmol/L (98-107); Creatinine, Serum 0.88 mg/dL (0.55-1.02); EST Glomerular Filtration Rate 70 mL/min (>60); Est Glom Filt Rate - Afr Amer 84 mL/min (>60); Estimated Creatinine Clearance 60.17 ml/min; Glucose 114 mg/dL (74-106); Potassium 3.5 mmol/L (3.5-5.1); Sodium Level 140 mmol/L (136-145)
--- NOTE | 2019-08-09 08:41 | PCM.PN.CARD ---
Subjectve: Patient seen and evaluated. Appears to be stable this morning. Objective: Vital Signs Temp Pulse Resp BP Pulse Ox 98.2 F 87 16 107/53 L 95 08/09/19 04:10 08/09/19 04:10 08/09/19 04:10 08/09/19 04:10 08/09/19 07:50 Oxygen Delivery Method Room Air Weight: 231 lb 14.821 oz Body Mass Index (BMI) 39.8 Finger Stick Blood Glucose 107 Orthostatic Vital Signs Start: 08/07/19 01:49 Freq: 0500 Status: Active Protocol: Activity Type Activity Date Activity User E-Sign Co-Sign Detail Recorded Client Recorded Date Recorded By Document 08/08/19 05:15 HS [id number] 08/08/19 05:17 HS 08/08/19 05:15 Orthostatic Vitals Sitting -Blood Pressure (90/60-120/80) 168/94 H -Extremity Use Right Arm -Pulse Rate (60-100) 80 Lying -Blood Pressure (90/60-120/80) 155/102 H -Extremity Use Right Arm -Pulse Rate (60-100) 82 Intake and Output for Last 24 Hours 08/07/19 08/08/19 08/09/19 23:59 23:59 23:59 Intake Total 3448.34 / 3448.34 396.25 / 616.25 440 / 440 Output Total 2700 / 2700 Balance 748.34 / 748.34 396.25 / 616.25 440 / 440 General: Awake, Alert, Oriented x 3 HEENT: PERRL, EOMI, Sclera Non Icteric Neck: Supple, Good ROM, No Lymph Node Enlargement Lungs: Clear to auscultation Cardiovascular: Regular Rhythm, Normal S1, Normal S2, No Murmurs, No Rubs, No Gallops Vascular: No Carotid Bruits, Normal Femoral Pulses, Normal Radial Pulses, Normal Dorsalis Pedal Pulse, Normal Posterior Tibial Pulses Abdomen: Bowel Sounds Present, Soft, Non Tender, No HSM, No Organomegaly Extremities: No Cyanosis, No Clubbing, No edema Musculoskeletal: No Erythema Skin: No Rashes Lymphatic: No Lymph Node Enlargement Neurological: No Focal Motor or Sensory Deficit Psych/Mental Status: Appropriate 08/08/19 11:38: Urine Color Yellow, Urine Clarity Clear, Urine pH 6.5, Ur Specific [place] 1.015, Urine Protein Negative, Urine Glucose (UA) Normal, Urine Ketones Negative, Urine Occult Blood Negative, Urine Nitrite Negative, Urine Bilirubin Negative, Urine Urobilinogen Normal, Ur Leukocyte Esterase 100 H, Urine RBC 0 SEEN, Urine WBC 0-5 SEEN 08/09/19 07:27: Sodium 140, Potassium 3.5, Chloride 107, Carbon Dioxide 24.0, Anion Gap 9, BUN 17, Creatinine 0.88, Est GFR (MDRD) Af Amer 84, Est GFR (MDRD) Non-Af 70, BUN/Creatinine Ratio 19.2, Glucose 114 H, Calcium 9.1 Rhythm: EKG: ECHO: Stress Test: Cardiac Cath: PCI: CT Surgery: Holter monitor: EPS: PPM: CXR: Chest CT Scan: Medical Necessity - Tobacco Use Smoking Status: Current every day smoker Tobacco Use: Cigarettes Assessment/Plan #1 Asymptomatic sinus pause lasting more than 5.5 seconds. patient was not on any AV svitlana blocking agents to explain the iatrogenic cause for her sinus pauses. I do believe patient has underlying sick sinus syndrome and would merit a permanent pacemaker. Review of other telemetry monitoring SPECT strips demonstrates periods of junctional rhythm as well as intermittent high-grade AV block. The exact etiology of the above is not entirely clear. Permanent pacemaker implanted and appears to be functioning well. Chest x-ray demonstrates in good position. Pacer checks demonstrated appropriate numbers. Patient will be discharged for outpatient follow-up August 16 at 10 AM. 2. Hypertension uncontrolled-was on amlodipine 10 mg once a day prior to this hospitalization which should be continued and will add an ARB losartan 50 mg once a day for now and see how she tolerates that. If she still has uncontrolled hypertension I will then optimize the dose of losartan before we add a diuretic to her regimen. 3. Narcolepsy and sleep apnea- Patient will be evaluated by the pulmonary service. Thank you for allowing me to participate in the care of your patient. Please don't hesitate to call if any issues arise
--- NOTE | 2019-08-09 09:25 | DCINST_ITS ---
Discharge Diet: No Restrictions, Low fat/ Low Cholesterol Discharge Activity: May Not Drive Additional Activity Instructions:: May shower or bathe on []. Do not scrub the incision or soak in the tub. Just wash with soap and let the water run over the incision. Gently pat dry with towel. Medications: Take your pain medication as directed. Refer to your discharge instruction sheet for a list of medications you are to take. Call your doctor if your incision/area has: Continuous Slow Oozing, Sudden Increased Bleeding, Increased Pain/ Swelling, Increased Redness, Foul Smelling Discharge, Swelling at the incision site Call your doctor if you observe: Fever of 101 or Higher, Shortness of breath, Dizziness, Fainting spells, Swelling in the ankles, Chest pain, Prolonged hiccoughing, Increased palpitations (irregular heartbeat) Suture Line Care: Avoid Pulling/Pushing, Avoid Pinching/Bending Cleanse incision/area with: Do not get Incision Wet, Keep Dressing Clean & Dry Additional Dressing/Incision Instructions:: When dressing is removed, wash and dry incision. Keep covered with a light bandage if it is rubbing against your clothing. Do not cover the incision with an airtight bandage. Change the bandage daily. Do not remove steri strips. The strips will fall off on their own. Additional Instructions: Signs and Symptoms to Report to Your Doctor at Once - call your doctor's office or Doctor's Registry ([phone]) Call 911 or go to the nearest Emergency Department if you feel you need urgent care. *Infection (fever, increased redness or swelling at the incision site, drainage from the incision increased pain at the pacemaker site) *Shortness of breath *Dizziness *Fainting spells *Swelling in the ankles *Chest pain *Prolonged hiccoughing *Increased palpitaitons (irregular heartbeat) Medications: Take your pain medication as directed. Refer to your discharge instruction sheet for a list of medications you are to take. Allergies/Adverse Reactions: Allergies enalapril Adverse Reaction (Verified 08/06/19 17:45) COUGH lisinopril Adverse Reaction (Verified 08/06/19 17:45) COUGH Medications to take at Discharge Amitriptyline HCl [Elavil] 10 mg PO QHS 12/12/16 Amlodipine [Norvasc] 10 mg PO DAILY 02/06/17 cycloBENZAPRine HCl [Flexeril] 10 mg PO TID PRN PRN 02/06/17 Atorvastatin Calcium [Lipitor] 10 mg PO QHS 06/12/17 Fluoxetine HCl 20 mg PO DAILY 08/06/19 Ibuprofen 100 mg PO PRN 08/06/19 Primary Care Physician: Lamberto Rogers MD [Primary Care Provider] - Test Results: Test results from this visit will be discussed in further detail at your follow- up appointment, if applicable. When: [facility] 08/16 at 10am Proposed Discharge Date: 08/09/19
[2019-08-09 09:45] VITALS: BP 159/93; PULSE 95; RESP 14; TEMP 36.9; O2SAT 96
[2019-08-09] MEDS: amLODIPine 10 MG Tablet PO (09:48)
[2019-08-09] MEDS: Losartan Potassium 50 MG Tablet PO (09:48)
--- NOTE | 2019-08-09 10:02 | CASEMGMT ---
RN CM Assessment Presentation: Bradycardia, UTI Intro role of CM and purpose of RN CM assessment to pt in room. Pt is awake, alert, able to participate in assessment. Demographics, PCP and Pharmacy verified. 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 Pt states she is independent there and has her belongings/prescriptions locked up. PCP: Dr. Rogers. Call to office, nurse states pt does come in for appts and was just seen on 07/20/19. Specialists: Dr. Carrero Preferred Pharmacy: [facility] usually, but pt will use [facility] to have her medications on discharge.MUSTAPHA Adan notified that any dc prescriptions should be sent to [facility]. Insurance: [facility] Prescription Benefit: yes LNOK: Son, Living Arrangements: Lives @ [facility] presently and plans to return on dc.Denies care needs. L arm is in sling until tomorrow. Transportation: Pt states she uses cab for transportation. DME: none HHC: none WAYNE Consult: Jose Daniel BLACK notified of pt's home status. Patient DC goals: return to [facility] DC PLAN: per WAYNE. Vic LORENZANAN RN ACM
--- NOTE | 2019-08-09 10:11 | CASEMGMT ---
Patient is at [facility]. WAYNE met with patient and she confirmed she is at [facility]. She said they are helping her with finding housing. She asked if the hospital van could give her a ride home. WAYNE told her we can check to see if they have availability. She denied need for any further community resources. WAYEN notified litigation secretary and will notify RN. Lucy MILES
--- NOTE | 2019-08-09 11:14 | DCINST_ITS ---
- Discharge Diagnoses Current Active Problems: Current Active and Chronic Problems Dizziness (Acute) HLD (hyperlipidemia) (Chronic) Morbid obesity (Chronic) You will use the following diet at home:: Calorie/Carbohydrate Controlled (specify 1200, 1400, etc) - 1800, Cardiac Your food should be the consistency of: Regular Your liquids should be the consistency of: Regular/Thin Discharge Activity: May Not Drive Additional Activity Instructions:: May shower or bathe on []. Do not scrub the incision or soak in the tub. Just wash with soap and let the water run over the incision. Gently pat dry with towel. Medications: Take your pain medication as directed. Refer to your discharge instruction sheet for a list of medications you are to take. Call your doctor if your incision/area has: Continuous Slow Oozing, Sudden Increased Bleeding, Increased Pain/ Swelling, Increased Redness, Foul Smelling Discharge, Swelling at the incision site Call your doctor if you observe: Fever of 101 or Higher, Shortness of breath, Dizziness, Fainting spells, Swelling in the ankles, Chest pain, Prolonged hiccoughing, Increased palpitations (irregular heartbeat) Suture Line Care: Avoid Pulling/Pushing, Avoid Pinching/Bending Cleanse incision/area with: Do not get Incision Wet, Keep Dressing Clean & Dry Additional Dressing/Incision Instructions:: When dressing is removed, wash and dry incision. Keep covered with a light bandage if it is rubbing against your clothing. Do not cover the incision with an airtight bandage. Change the bandage daily. Do not remove steri strips. The strips will fall off on their own. Allergies/Adverse Reactions: Allergies enalapril Adverse Reaction (Verified 08/06/19 17:45) COUGH lisinopril Adverse Reaction (Verified 08/06/19 17:45) COUGH Medications to take at Discharge Amitriptyline HCl [Elavil] 10 mg PO QHS 12/12/16 Amlodipine [Norvasc] 10 mg PO DAILY 02/06/17 cycloBENZAPRine HCl [Flexeril] 10 mg PO TID PRN PRN 02/06/17 Atorvastatin Calcium [Lipitor] 10 mg PO QHS 06/12/17 Fluoxetine HCl 20 mg PO DAILY 08/06/19 Acetaminophen [Tylenol Tablet] 650 mg PO Q6H PRN PRN tab 08/09/19 Cefdinir [Omnicef [equiv]] 300 mg PO Q12H #4 cap 08/09/19 Losartan Potassium [Cozaar] 50 mg PO BID #60 tab 08/09/19 The following prescriptions were given: Losartan Potassium [Cozaar] 50 mg PO BID #60 tab Transmission Status: Pending to [facility] Cefdinir [Omnicef [equiv]] 300 mg PO Q12H #4 cap Transmission Status: Pending to [facility] Primary Care Physician: Lamberto Rogers MD [Primary Care Provider] - Please follow up with your Primary Care Physician in: 1-2 weeks Test Results: Test results from this visit will be discussed in further detail at your follow- up appointment, if applicable. When: [facility] clinic 08/16 at 10am Please Follow Up With: Randy Carrero MD When: as directed Proposed Discharge Date: 08/09/19
--- NOTE | 2019-08-09 14:21 | PCM.DC.SUM ---
<Ronald Ellsworth - Last Filed: 08/09/19 14:21> Discharge Date and Diagnosis Date of Admission: 08/06/19 Date of Discharge: 08/09/19 - Primary Discharge Diagnosis Sick sinus syndrome with sinus pause status post pacemaker placement Acute cystitis Acute kidney injury secondary to dehydration Hypertension Diabetes type 2 with obesity Hyperlipidemia Nicotine abuse Depression - Secondary Discharge Diagnosis Chronic Problems (Last Updated 08/09/19 @ 12:03 by Cammy Roberts) Intermittent complete heart block (Chronic) Presence of cardiac pacemaker (Chronic) HLD (hyperlipidemia) (Chronic) Morbid obesity (Chronic) Primary osteoarthritis of left hip (Chronic) HTN (hypertension) (Chronic) Diabetes (Chronic) Spinal stenosis (Chronic) Hospital Course and Treatment Imaging Results: 08/09/19 05:55 Chest PA and Lateral [RAD] AM (NON MEDS) CT/Brain/Head without Contrast IMPRESSION: No acute intracranial pathology however, there is periventricular hypodensity which is significant for patient's age. Nonspecific demyelinating white matter disease cannot be excluded. Brain MRI with contrast is recommended to further evaluate. MRI/Brain W/WO Contrast IMPRESSION: Involutional changes of the brain, as described above. There are moderate chronic white matter ischemic changes without acute superimposed ischemia. The pattern is not specific for demyelination, it has an appearance more consistent with that of small vessel disease. No abnormal enhancement. MRI/MRA Head ONLY without Contrast IMPRESSION: Normal MRA of the head MRI/MRA Neck WITH and W/O Contrast IMPRESSION: Normal bilateral cervical carotid and vertebral arteries. Echo: Interpretation Summary Normal LV size. The estimated ejection fraction is 70 %. Normal tricuspid valve. No regional wall motion abnormalities noted. RAD/Chest 1 View IMPRESSION: Normal x-ray examination of the chest. RAD/Chest PA and Lateral IMPRESSION: Normal x-ray examination of the chest. Consultations: Cardiology- Alise Operations: None, total hip replacement Procedures: - - Pacemaker implantation Summary of Care Provided: Hospital course: The patient is a 58 year old F with past medical history of hypertension, hyperlipidemia, diet-controlled type 2 diabetes, homelessness, nicotine abuse, depression, who presented to the emergency room with complaints of an abnormal sensation in her head. This was described as a feeling of water sloshing around, and the pain that radiated from the left side of her neck to the top of her head on the right side. CT of the head demonstrated possible demyelinating white matter disease. Urinalysis was consistent with UTI. Toxicology screen was negative. She was admitted to the PCU with concerns for stroke, and placed on IV Rocephin for urinary tract infection. The following day she underwent an MRI of the brain with contrast which only revealed chronic changes, MRA of the head and neck were negative. Overnight the first night she was here she had multiple sinus pauses greater than 5.5 seconds. Cardiology was consulted. Patient was not on any antiarrhythmic therapy prior to this pause. She had no history of coronary disease. She was taken for pacemaker placement which was successful. She was transitioned to oral antibiotics to complete 5 days of therapy for urinary tract infection. She had no further issues and was discharged home in stable condition. At discharge she was also placed on metformin as her A1c was 6.4% and she was previously not taking any medications. She was also started on losartan for management of her blood pressure. She will need follow-up with her PCP in 1 to 2 weeks, and follow-up with the pacer clinic and Dr. Carrero as directed. This patient was seen by Ronald Ellsworth PA-C under the supervision of Doctor Mejia. [] - Physical Exam General: Alert, Oriented x3, Cooperative HEENT: Atraumatic, PERRLA, EOMI, Normocephalic Neck: Supple, No JVD, Negative Carotid Bruits Lungs: Clear to auscultation, Normal air movement Cardiovascular: Regular rate, No murmurs Abdomen: Bowel Sounds Present, Soft, Non Tender Extremities: No edema, Capillary Refill Less than 3 Seconds Skin: No rashes, No breakdown Musculoskeletal: No Tenderness to Palpation of Joints or Extremities Neurological: Cranial nerves II-XII grossly intact Psych/Mental Status: Normal Affect, Appropriate, Alert and oriented to time, place, person, mood and affect Vital Signs Temp Pulse Resp BP Pulse Ox 98.5 F 95 14 159/93 H 96 08/09/19 09:45 08/09/19 09:45 08/09/19 09:45 08/09/19 09:45 08/09/19 09:45 Oxygen Delivery Method Room Air Weight: 231 lb 14.821 oz Body Mass Index (BMI) 39.8 Finger Stick Blood Glucose 107 Intake and Output for Last 24 Hours 08/07/19 08/08/19 08/09/19 23:59 23:59 23:59 Intake Total 3448.34 / 3448.34 396.25 / 616.25 440 / 440 Output Total 2700 / 2700 Balance 748.34 / 748.34 396.25 / 616.25 440 / 440 Microbiology Past 72 Hours 08/06/19 18:30 Urine Culture - Final Urine, Clean Catch Lactobacillus sp. Laboratory Tests Past 24 Hrs 08/08/19 08/09/19 15:45 07:27 Sodium 140 Potassium 3.5 Chloride 107 Carbon Dioxide 24.0 Anion Gap 9 BUN 17 Creatinine 0.88 Estim Creat Clear Calc 60.17 Est GFR (MDRD) Af Amer 84 Est GFR (MDRD) Non-Af 70 BUN/Creatinine Ratio 19.2 Glucose 114 H Calcium 9.1 MRSA (PCR) Negative Discharge Diet: No Restrictions, Low fat/ Low Cholesterol Discharge Activity: May Not Drive Additional Activity Instructions:: May shower or bathe on []. Do not scrub the incision or soak in the tub. Just wash with soap and let the water run over the incision. Gently pat dry with towel. Medications: Take your pain medication as directed. Refer to your discharge instruction sheet for a list of medications you are to take. Call your doctor if your incision/area has: Continuous Slow Oozing, Sudden Increased Bleeding, Increased Pain/ Swelling, Increased Redness, Foul Smelling Discharge, Swelling at the incision site Call your doctor if you observe: Fever of 101 or Higher, Shortness of breath, Dizziness, Fainting spells, Swelling in the ankles, Chest pain, Prolonged hiccoughing, Increased palpitations (irregular heartbeat) Suture Line Care: Avoid Pulling/Pushing, Avoid Pinching/Bending Cleanse incision/area with: Do not get Incision Wet, Keep Dressing Clean & Dry Additional Dressing/Incision Instructions:: When dressing is removed, wash and dry incision. Keep covered with a light bandage if it is rubbing against your clothing. Do not cover the incision with an airtight bandage. Change the bandage daily. Do not remove steri strips. The strips will fall off on their own. Home Medications: Medications to take at Discharge Amitriptyline HCl [Deannal] 10 mg PO QHS 12/12/16 Amlodipine [Norvasc] 10 mg PO DAILY 02/06/17 cycloBENZAPRine HCl [Flexeril] 10 mg PO TID PRN PRN 02/06/17 Atorvastatin Calcium [Lipitor] 10 mg PO QHS 06/12/17 Fluoxetine HCl 20 mg PO DAILY 08/06/19 Acetaminophen [Tylenol Tablet] 650 mg PO Q6H PRN PRN tab 08/09/19 Cefdinir [Omnicef [equiv]] 300 mg PO Q12H #4 cap 08/09/19 Losartan Potassium [Cozaar] 50 mg PO BID #60 tab 08/09/19 metFORMIN HCl [Glucophage] 500 mg PO BIDCM #60 tab 08/09/19 Following Prescrptions Were Given to Patient: Losartan Potassium [Cozaar] 50 mg PO BID #60 tab Transmission Status: Received by [facility] metFORMIN HCl [Glucophage] 500 mg PO BIDCM #60 tab Transmission Status: Received by [facility] Cefdinir [Omnicef [equiv]] 300 mg PO Q12H #4 cap Transmission Status: Received by [facility] Primary Care Physician: Lamberto Rogers MD [Primary Care Provider] - Please follow up with your Primary Care Physician in: 1-2 weeks When: [facility] clinic 08/16 at 10am Please Follow Up With: Randy Carrero MD When: as directed Please Follow Up With: Lamberto Rogers MD Additional Instructions: Signs and Symptoms to Report to Your Doctor at Once - call your doctor's office or Doctor's Registry ([phone]) Call 911 or go to the nearest Emergency Department if you feel you need urgent care. *Infection (fever, increased redness or swelling at the incision site, drainage from the incision increased pain at the pacemaker site) *Shortness of breath *Dizziness *Fainting spells *Swelling in the ankles *Chest pain *Prolonged hiccoughing *Increased palpitaitons (irregular heartbeat) Medications: Take your pain medication as directed. Refer to your discharge instruction sheet for a list of medications you are to take. Disposition: Home Minutes spent on discharge:: 35 Patient Condition:: Stable Medical Necessity - Tobacco Use Smoking Status: Current every day smoker Tobacco Use: Cigarettes Meaningful Use Info Meaningful Use Diagnoses (Choose all that apply): None applicable <Allegra Ba - Last Filed: 08/09/19 16:12> Discharge Date and Diagnosis - Secondary Discharge Diagnosis Chronic Problems (Last Updated 08/09/19 @ 12:03 by Cammy Roberts) Intermittent complete heart block (Chronic) Presence of cardiac pacemaker (Chronic) HLD (hyperlipidemia) (Chronic) Morbid obesity (Chronic) Primary osteoarthritis of left hip (Chronic) HTN (hypertension) (Chronic) Diabetes (Chronic) Spinal stenosis (Chronic) Hospital Course and Treatment Summary of Care Provided: Patient seen by Ronald Ellsworth PA-C under my supervision. The patient is a 58 year old F with a past medical history as listed. She was admitted through the ED on 08/06/2019 with a complaint of an abnormal sensation in her head. CT of the head done showed possible demyelinating white matter disease. UA showed evidence of UTI and tox screen was negative. She was admitted to the PCU on account of concerns for stroke and started on Rocephin for UTI. MRI of the brain with contrast done showed only chronic changes and MRA of the head and neck were negative. Patient was subsequently noted to have multiple sinus pauses which were longer than 5.5 seconds. Cardiology was consulted. 2D echo done showed EF of 70% with no regional wall motion abnormalities. She had a dual-chamber pacemaker implantation on 08/08/2019. She remained stable and was discharged home on 08/09/2019. She was placed on metformin on account of new diagnosis of diabetes mellitus as A1c was 6.4. She was also started on losartan for blood pressure control. She was transitioned to oral antibiotics to complete 5 days of treatment. She is to follow-up with the pacer clinic on August 16, 2019. She is also to follow-up with her primary care doctor within 1 week. Patient seen and examined prior to discharge; patient no complaints and felt well. Review of systems is otherwise negative. Labs and vitals reviewed. Home medication reviewed and reconciled. o/e: Vital Signs Height 5 ft 4 in Weight: 231 lb 14.821 oz Weight in Pounds 231.9 lbs Pulse Ox 96 Temperature 98.5 F Pulse Rate [Standing] 81 Pulse Rate [Sitting] 80 Pulse Rate [Lying] 82 Pulse Rate 95 Respiratory Rate 14 Blood Pressure [Standing] 170/99 Blood Pressure [Sitting] 168/94 Blood Pressure [Lying] 155/102 Blood Pressure [BP] 165/70 Blood Pressure 159/93 Blood Pressure Position [BP] Supine Blood Pressure Position Semi-Fowlers General: Alert, Oriented x3, Cooperative, No apparent distress. HEENT: Atraumatic, PERRLA, EOMI. Neck: Supple, No JVD, Negative Carotid Bruits, Trachea Midline Lungs: Clear to auscultation, Normal air movement, No rhonchi, No wheeze, No rales. Cardiovascular: Regular rate, Regular Rhythm, Normal S1, Normal S2, PMI Normal. Abdomen: Bowel Sounds Present, Soft, Non Tender, Non-Distended, No Hepato-splenomegaly. Extremities: No clubbing, No cyanosis, No edema Skin: No rashes, No breakdown Neurological: Neuro grossly intact Plan as above. - Physical Exam Vital Signs Temp Pulse Resp BP Pulse Ox 98.5 F 95 14 159/93 H 96 08/09/19 09:45 08/09/19 09:45 08/09/19 09:45 08/09/19 09:45 08/09/19 09:45 Oxygen Delivery Method Room Air Weight: 231 lb 14.821 oz Body Mass Index (BMI) 39.8 Finger Stick Blood Glucose 107 Intake and Output for Last 24 Hours 08/07/19 08/08/19 08/09/19 23:59 23:59 23:59 Intake Total 3448.34 / 3448.34 396.25 / 616.25 440 / 440 Output Total 2700 / 2700 Balance 748.34 / 748.34 396.25 / 616.25 440 / 440 Microbiology Past 72 Hours 08/06/19 18:30 Urine Culture - Final Urine, Clean Catch Lactobacillus sp. Laboratory Tests Past 24 Hrs 08/08/19 08/09/19 15:45 07:27 Sodium 140 Potassium 3.5 Chloride 107 Carbon Dioxide 24.0 Anion Gap 9 BUN 17 Creatinine 0.88 Estim Creat Clear Calc 60.17 Est GFR (MDRD) Af Amer 84 Est GFR (MDRD) Non-Af 70 BUN/Creatinine Ratio 19.2 Glucose 114 H Calcium 9.1 MRSA (PCR) Negative Code Visit Inpatient E&M: 87896 Disch Hosp
--- NOTE | 2019-08-10 14:51 | CASEMGMT ---
Addendum entered by Krystin Clark 08/10/19 16:05: This RN CM received call back from pt and she states she has been 'doing really well' since discharge. Pt states no questions regarding discharge instructions/medications at this time. Pt states has f/u appt scheduled with PCP on 08/16/19. Pt states no suggestions for [facility] at this time. Pt voices no further questions/concerns/needs at this time. Pt thanked this RN CM for f/u. Faviola CAM CM Original Note: Case Management DC f/u call: DC Date: 08/09/19 DC Diagnosis: Sick sinus syndrome with sinus pause status post pacemaker placement, Acute cystitis, Acute kidney injury secondary to dehydration, Hypertension, Diabetes type 2 with obesity, Hyperlipidemia, Nicotine abuse, Depression DC Disposition: Home- Return to [facility] 10/19 Called number listed on demographics- goes to [facility], transferred to [facility] and s/w [facility] and states that patient currently not there. This cm provided name and number to primary CM Krystin Shrestha if patient has any issues, concerns or questions with post f/u. S. GRAHAM Wang
--- NOTE | 2019-08-11 09:59 | CL.IE_ITS ---
Patient: ABE HICKS Study Date: 08/08/2019 Performing: Randy Carrero MD : 1960 Age: 58 Gender: female PROCEDURES PERFORMED [id number] PACER INSERT+DUAL LEADS INDICATIONS Atrioventricular (AV) block PROCEDURE DETAILS The patient was brought to the Catheterization Lab in the postabsorptive nonsedated state. [facility] consent was obtained prior to the procedure. Incision was made to the left upper chest. Access w as achieved and a guidewire was advanced into the left subclavian vein. A peel-away sheath was insert ed into the left subclavian vein. PPM ventricular lead was inserted / positioned to right ventricular apex. PPM ventricular lead testing performed. PPM ventricular lead testing performed. A peel-away sh eath was inserted into the left subclavian vein. PPM atrial lead was inserted / positioned to the rig ht atrial appendage. The Atrial lead sutured in place with 2-0 Silk. The Ventricular PM lead sutured in place with 2-0 Silk. PPM atrial lead testing performed. PPM generator was attached to the lead(s) and inserted into the pocket. Device pocket was irrigated with antibiotic. PPM generator was attached to the lead(s) and inserted into the pocket. Subcutaneous closure was completed with 3-0 Vicryl. Skin closure was completed with 4-0 Vicryl. Instrument, sponge, and needle counts were noted to be normal. The patient tolerated the procedure well. Estimated Blood Loss: 15 ml's IMPLANTED / EX-PLANTED DEVICES IMPLANTED DEVICE(S): PPM Ventricular lead - Bandoleer Straightener Stamper: Medtronic, Model # 5076-52 , Serial # [id number] PPM Atrial lead - Bandoleer Straightener Stamper: Medtronic, Model # 5076-45 , Serial # [id number] PPM Generator - Bandoleer Straightener Stamper: Medtronic, Model # Medtronic [place] XT DR OR[place]O [place] , Serial # [id number] DEVICE PARAMETERS ATRIAL LEAD PARAMETERS: P wave- 7.8 (mV) Current- 1.8 (mA) threshold- 1.0 (V) impedence- 734 (OHMS) VENTRICULAR LEAD PARAMETERS: R wave- 4.0 (mV) Current- 0.8 (mA) threshold- 0.5 (V) impedence- 871 (OHMS) DEVICE PARAMETERS: Mode- AAI-DDD Lower rate- 60 Upper rate- 130 CONCLUSIONS / RECOMMENDATIONS Device Conclusions: Successful implantation of a dual chamber pacemaker Device Recommendations: Follow up with Primary Care Physician PROCEDURE MEDICATIONS Versed 1 mg IV Fentanyl 50 mcg IV Versed 1 mg IV Oxygen: 2 L/min via nasal cannula Antibiotic given in appropriate timeframe. Ancef 2 Gm IV @ 08/08/2019 12:10:55 Signed By Randy Carrero MD On 08/08/2019 13:47:23 Randy Carrero MD
== END 2019-08-09 13:05 | disposition home or self-care (01) | DRG 243 ==
LOC: ED 19:32 → PCU 20:08
PROVIDERS: Hospitalist; Internal Medicine Cardiovascular Disease; Physician Assistant; Admitting Provider Family Medicine; Emergency Provider Emergency Medicine; Family Provider Family Medicine; PCP Family Medicine; Visit Provider Student in an Organized Health Care Education/Training Program
DX: I49.5 Sick sinus syndrome (principal); N30.00 Acute cystitis without hematuria; N17.9 Acute kidney failure, unspecified; I44.2 Atrioventricular block, complete; Z68.41 Body mass index [BMI] 40.0-44.9, adult; I12.9 Hypertensive chronic kidney disease with stage 1 through stage 4 chronic kidney disease, or unspecified chronic kidney disease; N18.9 Chronic kidney disease, unspecified; E11.22 Type 2 diabetes mellitus with diabetic chronic kidney disease; E78.5 Hyperlipidemia, unspecified; F32.9 Major depressive disorder, single episode, unspecified; F17.210 Nicotine dependence, cigarettes, uncomplicated; E66.01 Morbid (severe) obesity due to excess calories; E86.0 Dehydration; E87.6 Hypokalemia; F41.9 Anxiety disorder, unspecified; M16.12 Unilateral primary osteoarthritis, left hip; G47.30 Sleep apnea, unspecified; G47.419 Narcolepsy without cataplexy; Z59.0 Homelessness; Z96.643 Presence of artificial hip joint, bilateral; Z79.899 Other long term (current) drug therapy
CPT/HCPCS: 33208; 36415; 70450; 70544; 70549; 70553; 71045; 71046; 80048; 80061; 80307; 80320; 81001; 82962; 83036; 83735; 84443; 84484; 85025; 87086; 87088; 87641; 92610; 93005; 93306; 94762; 97802; 99152; 99153; 99285; A9575; J7030; J7050; A4216; C1894; G0480

== ENCOUNTER → 2019-08-16 20:34 | Outpatient (CLI) | payer MEDICARE, MEDICAID, SELFPAY ==
[2019-08-06 20:23] VITALS: BMI 39.8
== END ==
PROVIDERS: Family Provider Family Medicine; PCP Family Medicine; Referring Provider Family Medicine; Visit Provider Family Medicine
DX: G47.33 Obstructive sleep apnea (adult) (pediatric) (principal)
CPT/HCPCS: 95811

== ENCOUNTER 2019-08-25 21:32 | Emergency (ER) | payer MEDICARE, OTHER, SELFPAY ==
[2019-08-25 21:32] VITALS: BP 178/87; PULSE 119; RESP 20; TEMP 37.7; O2SAT 97; BMI 39.6
--- NOTE | 2019-08-25 21:40 | EKG12_ITS ---
Test Reason : Blood Pressure : / mmHG Vent. Rate : 111 BPM Atrial Rate : 111 BPM P-R Int : 134 ms QRS Dur : 076 ms QT Int : 392 ms P-R-T Axes : 068 049 062 degrees QTc Int : 533 ms Sinus tachycardia Possible Left atrial enlargement Prolonged QT Abnormal ECG Confirmed by KHANG KELLER, JAVIER ([id number]), editor department IRVING JONES ([id number]) on 08/31/2019 9:36:55 AM Referred By: JASON Confirmed By:DAVID QUIÑONEZ MD
--- NOTE | 2019-08-25 21:45 | RAD_ITS ---
STUDY: X-RAY CHEST REASON FOR EXAM: Female, 58 years old. Cough and shortness of breath TECHNIQUE: Single frontal view of the chest. COMPARISON: August 09, 2019 FINDINGS: Bipolar pacer on the left unchanged. The lungs are clear and expanded. There is no demonstrated pleural abnormality. Normal size heart. Normal mediastinum and dwayne. Normal visualized pulmonary arteries. Normal visualized aortic arch and descending thoracic aorta. Normal visualized thoracic spine. Normal visualized ribs, clavicles, and shoulders. There is no demonstrated abnormality of the visualized soft tissue structures of the upper abdomen. RAD/Chest 1 View (Portable) IMPRESSION: Normal x-ray examination of the chest. Electronically Signed: Teo Hanson MD at 22:14 EDT , Service support ,
--- NOTE | 2019-08-25 21:51 | ED.DCSUM_ITS ---
History of Present Illness Chief Complaint: Cough Informant: Patient Onset: Today Current Severity: Mild Narrative: Patient history of cardiac defibrillator due to a weak heart: , Indicates she is been her usual state of good health yesterday 10 AM received flu shot, and that 3:00 today she suddenly began having copious rhinorrhea and coughing, the cough turned into a harsh cough and she came to the emergency department. Indicates she is constantly blowing her nose she was not ill this morning she is had no chest pain no abdominal pain no numbness weakness paresthesias no orthopnea or PND her cardiac defibrillator has never fired Past Medical History - Allergies and Home Meds Allergies/Adverse Reactions: Allergies enalapril Adverse Reaction (Verified 08/25/19 21:37) COUGH lisinopril Adverse Reaction (Verified 08/25/19 21:37) COUGH Primary Care Physician: Lamberto Rogers MD [Primary Care Provider] - Past Medical History: - - Cardiac defibrillator and bronchitis Surgical History: - - lumbar sacral trauma due to fall on a fiberglass boat, bilateral hip replacement. Smoking Status: Current every day smoker - Family History Maternal Family History: Reports: - - diabeties,heart disease Paternal Family History: Reports: - - colon cancer at age 55-58 Review of Systems General: Reports: - - Obvious rhinorrhea and cough but her only complaints. Denies: Chills, Fever, Sweats Eyes: Denies: Visual changes - bilaterally, Diplopia ENT: Denies: Rhinorrhea, Sore throat Cardiovascular: Denies: Chest pain, Palpitations Respiratory: Denies: Dyspnea, Cough, Dyspnea on exertion Gastrointestinal: Denies: Abdominal pain, Nausea, Vomiting, Diarrhea, Melena, Hematochezia Genitourinary: Denies: Dysuria, Hematuria, Frequency Musculoskeletal: Denies: Back pain, Extremity Pain Skin: Denies: Rash, Wounds Neurological: Denies: Headache, Weakness, Numbness Physical Exam Vital Signs/Narrative: Vital Signs Temp Pulse Resp BP Pulse Ox 08/25/19 21:32 99.9 F H 119 H 20 H 178/87 H 97 General: Well nourished, Well developed, No Acute Distress Head: Normocephalic, Atraumatic Eyes: Perrl, EOMI ENT: Moist mucous membranes, - - Nose is quite congested and running her throat is clear her airway is clear speaking full sentences her vital signs are normal her pulse ox is 98% on room air her lungs sound clear. Negative for: No rhinorrhea Neck: Supple, Nontender Cardiovascular: Regular rate, Regular rhythm, No murmurs Respiratory: No distress, CTA bilaterally, Chest nontender Abdomen: Soft, Nontender, Nondistended, Normal bowel sounds Back: Nontender, Normal Inspection Extremities: Nontender, No edema Skin: Normal color, No rash Neurological: Alert, Oriented x3, Cranial nerves II-XII grossly intact, Normal Strength, Normal Sensation Psychological: Normal affect, Normal Mood Diagnostic/Tx/Re-eval - Medical Decision Making Sudden onset of rhinorrhea and harsh coughing she did receive the flu shot yesterday she has otherwise been in very good health she reports given all the above will obtain screening labs EKG aerosols Afrin chest x-ray Patient's EKG shows a sinus rhythm nothing acute the patient's chest x-ray is unremarkable per radiology, we were unable to obtain blood for blood analysis testing, we recommended femoral stick she refused that she is feeling better after the Afrin and the aerosol she is comfortable discharge home to follow-up with her outpatient providers, she apparently is currently living in the [facility] where multiple people are sick with URI type symptoms, she will be discharged on Afrin Proventil inhaler and she will return for change in symptoms, Had complained of questionable UTI symptoms was not able to provide urinalysis if she provides urinalysis and show signs of UTI she will be treated with Bactrim but that is pending Home stable Final impression Acute URI with harsh cough history of cardiac defibrillator ED Disposition - Plan for ED Patient: Diagnosis: URI with cough and congestion Instructions: BRONCHITIS, No Antibiotic (Adult) Prescriptions: Fluticasone Propionate [Flonase Allergy Relief] 15.8 ml NS BID #1 spray.susp Prescription Printed Cephalexin [Keflex] 500 mg PO Q6 #40 cap Prescription Printed Albuterol Inhaler [Ventolin Hfa] 1 - 2 puff INHALATION Q4H PRN PRN #1 inhaler PRN Reason: Wheezing Prescription Printed Referrals: Lamberto Rogers MD [Primary Care Provider] -
[2019-08-25 21:58] VITALS: PULSE 115; RESP 20
[2019-08-25] MEDS: Ipratropium/Albuterol Sulfate 3 ML AMPUL.NEB INHALATION (21:58)
[2019-08-25] MEDS: Oxymetazoline 0.05% 1 SPRAY SPRAY.BTL 2 SPRAY NASAL (22:14)
[2019-08-25 23:02] LABS: Bacteria 0 SEEN /hpf (None Seen)
--- NOTE | 2019-08-25 23:02 | ED.RN ---
multiple attempts to obtain blood specimens by nursing staff and lab. per dr. salazar will cancel lab orders.
[2019-08-25 23:03] LABS: Color, Urine Yellow (Yellow); Glucose, Dipstick Normal (Normal); Ketone-Dipstick 5 mg/dl (Negative); Leukocyte Esterase-Dipstick 500 /ul (Negative); Nitrite-Dipstick Negative (Negative); Occult Blood-Urine 10 /ul (Negative); Protein-Dipstick 15 mg/dl (Negative); Urine Clarity Sl. Cloudy (Clear); Urine Urobilinogen 1 mg/dl (Normal)
[2019-08-25 23:05] LABS: Urine Bilirubin Dipstick 1 mg/dL (Negative)
[2019-08-25 23:10] LABS: White Blood Cells 25-50 SEEN /hpf (0-5)
[2019-08-25 23:11] LABS: Amorphous Sediment 1+ URATE; Mucous, Urine RARE /hpf (<or=2+); Red Blood Cells-Urine 0-5 SEEN /hpf (0-5); Squamous Epithelial Cells - UA 5-10 SEEN /hpf (5-10)
[2019-08-25 23:25] VITALS: PULSE 109; RESP 18
[2019-08-25] MEDS: Cephalexin 250 MG Capsule 500 MG PO (23:25)
== END 2019-08-25 23:26 | disposition home or self-care (01) ==
LOC: ED 22:06
PROVIDERS: Emergency Provider Emergency Medicine; Family Provider Family Medicine; PCP Family Medicine
DX: J06.9 Acute upper respiratory infection, unspecified (principal); R05 Cough; R30.0 Dysuria; F17.210 Nicotine dependence, cigarettes, uncomplicated; Z95.810 Presence of automatic (implantable) cardiac defibrillator
CPT/HCPCS: 71045; 81001; 87086; 87088; 93005; 94640; 99285; A4216

== ENCOUNTER 2019-11-06 07:30 | Inpatient (IN) | payer MEDICARE, OTHER, SELFPAY ==
[2019-10-26 07:02] VITALS: BMI 39.6
[2019-11-06] VITALS (8 sets, daily range): BP systolic 148–196; BP diastolic 69–112; PULSE 95–113; RESP 16–18; TEMP 36.4–37.2; O2SAT 96–100; BMI 41.8; BMI 40.9; BMI 41.0
--- NOTE | 2019-11-06 07:38 | CT_ITS ---
STUDY: CT ABDOMEN AND PELVIS WITHOUT CONTRAST REASON FOR EXAM: Female, 59 years old. 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 Sagittal and coronal images were reconstructed. Individualized dose optimization techniques were used for this CT. COMPARISON: 04/12/2015 CT scan abdomen and pelvis FINDINGS: The visualized lung bases are unremarkable. Partial visualization of the defibrillator lead. The liver is enlarged fatty infiltrated similar to the prior study. Normal gallbladder and extrahepatic biliary system. Normal spleen. Normal pancreas. Normal bilateral adrenal glands. There are multiple stones in the right kidney including a parenchymal calcification with associated cortical thinning, that measures 2.6 mm. There is no evidence of hydronephrosis. Normal left kidney. Normal visualized stomach. There are distended loops of small bowel present measuring up to 3.7 cm air-fluid levels. There is a relative decompressed appearance of the distal small bowel relative to the left upper quadrant distended small bowel. There is a fluid distended appearance of the cecum with a decompressed appearance of the midline transverse colon with moderate stool within the distal descending colon and rectum. . There is no apparent zone of transition area of absolute focal narrowing. The appendix is visualized and appears normal. Aorta is partially calcified. Normal inferior vena cava. Normal retroperitoneum. Normal urinary bladder. Normal visualized uterus. There is a small umbilical hernia containing fat. The bilateral hip arthroplasties. There is beam hardening artifact. There is multilevel degenerative change within the lumbar spine. L4-L5 there is a broad disc bulge severe neural foramina narrowing severe central stenosis with facet arthropathy. L5-S1 there is moderate neural foramina narrowing mild to moderate central stenosis. At L3-L4 there is moderate neural foramina narrowing mild to moderate central stenosis. CT/Abdomen/Pelvis without Cont IMPRESSION: Distention of the left upper quadrant small bowel with air-fluid levels with a relative decompressed appearance of the distal descending colon without obvious zone of transition possibly compatible with with ileus and/or early partial small bowel obstruction. Cannot exclude enteritis. This is in the setting of probable fecal impaction. No evidence of appendicitis. Multiple right renal cysts no evidence of hydronephrosis and no evidence of stone along the course right ureter allowing for beam hardening artifact in the pelvis. Advanced degenerative changes lower lumbar spine with severe neural foramina narrowing central stenosis L4-L5. Enlarged fatty infiltrated liver. Partial visualization of a defibrillator. Electronically Signed: Nita Angela MD at 9:14 EST Tel , Service support ,
--- NOTE | 2019-11-06 07:44 | ED.VISSUMM ---
- ER Visit Summary Date of Service: 11/06/19 Chief Complaint: [Abdominal pain] History of Present Illness: The patient is a 59 F [presents to the emergency department complaint of abdominal pain is here about an hour ago. Patient was awoken from sleep by it. She describes it as right-sided and radiating through to her back. Patient denies recent illness. She denies eating any unusual or undercooked foods. She denies spicy or greasy food. Patient is never had pain like this before. She does describe some urinary frequency. She denies dysuria however. Patient has history of diabetes, hypertension, high cholesterol. Patient has had bilateral hip replacements and a pacemaker placed for complete heart block.] Physical Examination: [HEENT-PERRLA, EOMI. Cranial nerves II through XII grossly intact. TMs clear. Mucous membranes moist. No adenopathy. Cardiovascular-regular rate and rhythm without murmur or ectopy Lungs-clear to auscultation, chest wall stable without crepitus or subcu emphysema Abdomen-normoactive bowel sounds, soft. Patient has some mild tenderness over right upper quadrant as well as right lower quadrant. Patient has mild discomfort over left lower quadrant. He has some mild CVA tenderness on the right. There is no rebound, rigidity, or perineal signs. Extremities-intact ?4, normal range of motion, normal pulses, atraumatic] Test Results: [CBC with differential obtained showed an elevated white count of 18.9, hemoglobin 16, hematocrit 51, platelets 227. Chemistries unremarkable. LFTs were unremarkable. Lipase was 64. Urinalysis was positive for 500 leukocyte esterase as well as 5-10 WBCs and +1 bacteria.] CT scan of the abdomen pelvis showed left upper quadrant small bowel distention with air-fluid levels, ileus versus small bowel obstruction. Emergency Department Course and Treatment: [Patient was medicated with morphine and Zofran for pain. Patient was started on Rocephin 1 g IV. Case discussed with hospitalist will evaluate patient for admission.] Treatment Plan: [Admit] Disposition: [Admit] Impression: [Abdominal pain-ileus versus small bowel obstruction UTI] This note was generated with [employer] dictation software. It may contain incorrect words, spelling, and punctuation that were not noted in review of the chart prior to signing ED Disposition - Plan for ED Patient: Referrals: Lamberto Rogers MD [Primary Care Provider] -
[2019-11-06] MEDS: 0.9% Normal Saline 1,000 ML 125 ML IV (08:14)
[2019-11-06] MEDS: HYDROmorphone 1 MG/ML Syringe IV (08:14)
[2019-11-06] MEDS: Ondansetron 4 MG/2 ML Vial IV (08:14)
[2019-11-06 08:49] LABS: ALB/GLOB Ratio 0.9 RATIO (0.9-2.4); AST(SGOT) 27 U/L (15-37); Alanine Aminotransfer ALT/SGPT 44 U/L (13-56); Albumin, Serum 3.9 g/dL (3.2-5.0); Alkaline Phosphatase 124 U/L (45-117); Anion Gap 6 (5-15); BUN 17 mg/dL (7-18); BUN/Creat Ratio 16.7 RATIO (10-20); Calcium,Total 9.8 mg/dL (8.5-10.1); Chloride 109 mmol/L (98-107); Creatinine, Serum 1.02 mg/dL (0.55-1.02); EST Glomerular Filtration Rate 59 mL/min (>60); Est Glom Filt Rate - Afr Amer 71 mL/min (>60); Estimated Creatinine Clearance 51.28 ml/min; Globulin 4.2 g/dL (2.2-4.2); Glucose 137 mg/dL (74-106); Lipase 64 U/L (73-393); Potassium 4.3 mmol/L (3.5-5.1); Protein, Total 8.1 g/dL (6.4-8.2); Sodium Level 141 mmol/L (136-145)
[2019-11-06 10:03] LABS: Absolute Lymphocyte Count 0.88 X10^3/uL (0.83-4.51); Absolute Neutrophil Count 16.7 X10^3/uL (2.0-7.7); Basophil# 0.09 X10^3/uL; Basophil% 0.5 % (0-1); Eosinophil# 0.23 X10^3/uL; Eosinophils% 1.2 % (0-5); Hematocrit 50.8 % (37-47); Hemoglobin 16.5 g/dL (12.0-15.0); Lymphocyte # 0.88 X10^3/ul (4.0); Lymphocyte % 4.7 % (19-41); Mean Corp Hgb Conc 32.5 g/dL (32-36); Mean Corpuscular Hgb 30.6 pg (27.0-32.0); Mean Corpuscular Volume 94.2 fL (81-99); Mean Platelet Vol. 10.2 fl (6.2-12.0); Monocyte% 4.8 % (0-10); NRBC Flagged by Analyzer 0 % (0-5); Neutrophil # 16.73 X10^3/uL (2.7-7.7); Neutrophil % 88.4 % (47-70); Platelet Count 227 K/mm3 (150-450); RBC Distribution Width CV 13.8 % (11.6-14.6); RBC Distribution Width SD 47.9 fl (35.1-43.9); Red Blood Count 5.39 M/mm3 (4.2-5.4); White Blood Count 18.9 K/mm3 (4.4-11.0)
[2019-11-06 10:34] LABS: Mucous, Urine 0 SEEN /hpf (<or=2+)
[2019-11-06 10:39] LABS: Color, Urine Yellow (Yellow); Glucose, Dipstick Normal (Normal); Ketone-Dipstick Negative (Negative); Leukocyte Esterase-Dipstick 500 /ul (Negative); Nitrite-Dipstick Negative (Negative); Occult Blood-Urine Negative /ul (Negative); Protein-Dipstick 15 mg/dl (Negative); Specific Gravity, Urine 1.015 (1.002-1.030); Urine Clarity Clear (Clear); Urine Urobilinogen Normal (Normal); Urine pH 6.5 (5.0 - 8.0)
[2019-11-06 10:41] LABS: Urine Bilirubin Dipstick 1 mg/dL (Negative)
[2019-11-06 10:53] LABS: White Blood Cells 5-10 SEEN /hpf (0-5)
[2019-11-06 10:55] LABS: Bacteria 1+ /hpf (None Seen); Red Blood Cells-Urine 0-5 SEEN /hpf (0-5); Squamous Epithelial Cells - UA 0-5 SEEN /hpf (5-10)
--- NOTE | 2019-11-06 11:15 | NURSING ---
DR ELENITA GUERRERO
--- NOTE | 2019-11-06 11:27 | NURSING ---
MED SURG [facility] ELENITA
[2019-11-06] MEDS: hydrALAZINE 20 MG/ML Vial 10 MG IV (11:32)
[2019-11-06] MEDS: Ceftriaxone 1 GM/50 ML BAG IV (11:44)
[2019-11-06 11:49] LABS: Magnesium 2.3 mg/dL (1.6-2.6)
--- NOTE | 2019-11-06 12:11 | PCM.HP.STD ---
Problem List (1) Intermittent complete heart block Status: Chronic (2) History of permanent cardiac pacemaker placement Status: Chronic (3) Essential (primary) hypertension Status: Chronic (4) HLD (hyperlipidemia) Status: Chronic Qualifiers: (5) Nicotine dependence Status: Chronic (6) Diabetes mellitus type 2 in obese Status: Chronic (7) Anxiety and depression Status: Acute (8) Small bowel ileus Status: Acute History of Present Illness Date of Admission: 11/06/19 Chief Complaint: Abdominal distention for 2 days The patient is a 59 year old F with history of multiple comorbidities as mentioned above living in a long term came to ER with abdominal distention, abdominal discomfort for 2 days. Patient denies any nausea or vomiting, fever or chills. She has history of constipation and moves hard stool/straining for bowel movement but claims she moves bowel daily. She also has chronic left lower quadrant abdominal pain for about 1 year, started after spider bite as per the patient in left upper thigh [] In ED, afebrile blood pressure 135/112, heart rate 106 pulse ox 96% on room air. Of note, patient also history of anxiety and depression and was started on Prozac but she could not take it for more than 1 dose because of weird emotional side effect. She denies any suicidal attempt/ideation or thoughts. CT abdomen shows air-fluid level in the small bowel with distention of the stomach and small bowel. No obvious transition zone. Feces in colon Past Medical History Past Medical History (Chronic Problems): Chronic Problems (Last Reviewed 10/05/19 @ 13:42 by Syl Fischer) Diabetes mellitus type 2 in obese (Chronic) Intermittent complete heart block (Chronic) History of permanent cardiac pacemaker placement (Chronic 08/08/19) Essential (primary) hypertension (Chronic) HLD (hyperlipidemia) (Chronic) Nicotine dependence (Chronic) Medical History: Medical History (Last Reviewed 10/05/19 @ 13:42 by Syl Fischer) Intermittent complete heart block (Chronic) I44.2 Essential (primary) hypertension (Chronic) I10 HLD (hyperlipidemia) (Chronic) E78.5 Nicotine dependence (Chronic) F17.200 Morbid obesity E66.01 Obstructive sleep apnea G47.33 Primary osteoarthritis of left hip M16.12 Spinal stenosis M48.00 Type 2 diabetes mellitus E11.9 Allergies enalapril Adverse Reaction (Verified 11/06/19 07:33) COUGH lisinopril Adverse Reaction (Verified 11/06/19 07:33) COUGH Home Medications: Ambulatory Orders Medication Instructions Recorded Amitriptyline HCl [Elavil] 10 mg PO QHS 12/12/16 Amlodipine [Norvasc] 10 mg PO DAILY 02/06/17 cycloBENZAPRine HCl [Flexeril] 10 mg PO TID PRN PRN 02/06/17 Atorvastatin Calcium [Lipitor] 10 mg PO QHS 06/12/17 Fluoxetine HCl 20 mg PO DAILY 08/06/19 Acetaminophen [Tylenol Tablet] 650 mg PO Q6H PRN PRN tab 08/09/19 Losartan Potassium [Cozaar] 50 mg PO BID #60 tab 08/09/19 metFORMIN HCl [Glucophage] 500 mg PO BIDCM #60 tab 08/09/19 Albuterol Inhaler [Ventolin Hfa] 1 - 2 puff INHALATION Q4H PRN PRN 08/25/19 #1 inhaler Cephalexin [Keflex] 500 mg PO Q6 #40 cap 08/25/19 Fluticasone Propionate [Flonase 15.8 ml NS BID #1 spray.susp 08/25/19 Allergy Relief] Surgical History: Surgical History (Last Reviewed 10/05/19 @ 13:42 by Syl Fischer) History of permanent cardiac pacemaker placement (Chronic) Onset Date: 08/08/19 Z95.0 H/O bilateral hip replacements Z96.643 Surgical History: - - lumbar sacral trauma due to fall on a fiberglass boat, bilateral hip replacement. 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 Smoking Status: Current every day smoker - *Family History Maternal Family History: Family History (Last Reviewed 10/05/19 @ 13:42 by Syl Fischer) Father Colon cancer Mother Diabetes Heart disease History Items: - - diabeties,heart disease Paternal Family History: Family History (Last Reviewed 10/05/19 @ 13:42 by Syl Fischer) Father Colon cancer Mother Diabetes Heart disease History Items: - - colon cancer at age 55-58 Review of Systems Constitutional: Denies: Chills, Fever, Weight Change HEENT: Denies: Head Aches, Sinus Congestion, Sinus Drainage Cardiovascular: Denies: Chest Pain, Palpitations Respiratory: Denies: Cough, Shortness of breath at rest, Sputum production Gastrointestinal: Reports: Constipation, - - Abdominal distention. Denies: Abdominal Pain, Nausea, Vomiting Genitourinary: Reports: Frequency. Denies: Dysuria, Hesitancy Musculoskeletal: Denies: Joint Pain, Joint Tenderness Skin: Denies: Rash, Wounds Neurological: Denies: Numbness, Tingling, Focal weakness Psychiatric: Reports: Anxiety, Depression. Denies: Homicidal Ideations, Suicidal Ideations Hematologic/ Lymphatic: Denies: Easy Bruising, Easy Bleeding VTE Information - Inpt Only VTE Present on Admission: No VTE Mechan Device Prophylaxis: None VTE Pharm Prophylaxis ordered?: Yes Patient Problems: Active and Suspected Problems (Last Reviewed 10/05/19 @ 13:42 by Syl Fischer) Anxiety and depression (Acute) Small bowel ileus (Acute) - Physical Exam Vitals/I&O's: Vital Signs Temp Pulse Resp BP Pulse Ox 97.6 F L 107 H 18 148/76 H 96 11/06/19 07:31 11/06/19 11:30 11/06/19 11:30 11/06/19 11:30 11/06/19 11:30 Oxygen Delivery Method Room Air Weight: 244 lb 0.827 oz Body Mass Index (BMI) 41.8 Finger Stick Blood Glucose 107 General: Alert, Oriented x3, Cooperative HEENT: Atraumatic, PERRLA, EOMI, Normocephalic Oral: Dry Mucosa Neck: Supple, No JVD, Negative Carotid Bruits Lungs: Clear to auscultation, Normal air movement, No rhonchi, No wheeze, No rales Cardiovascular: Regular rate, No murmurs Abdomen: Bowel Sounds Present, Soft, Hyperactive Bowel Sounds, Distended, Tender - Mild deep tenderness in left lower quadrant but otherwise full normal Extremities: Capillary Refill Less than 3 Seconds, Edema Skin: No rashes, No breakdown Musculoskeletal: No Tenderness to Palpation of Joints or Extremities, Arthritic Changes Neurological: Cranial nerves II-XII grossly intact Psych/Mental Status: Normal Affect, Appropriate Laboratory Results 11/06/19 08:15: WBC 18.9 H, RBC 5.39, Hgb 16.5 H, Hct 50.8 H, MCV 94.2, MCH 30.6, MCHC 32.5, RDW Std Deviation 47.9 H, RDW Coeff of Mark 13.8, Plt Count 227, MPV 10.2, Immature Gran % (Auto) 0.400, Neut % (Auto) 88.4 H, Lymph % (Auto) 4.7 L, [place] % (Auto) 4.8, Eos % (Auto) 1.2, Baso % (Auto) 0.5, Absolute Neuts (auto) 16.7 H, Absolute Lymphs (auto) 0.88, Nucleated RBC % 0 11/06/19 08:15: Sodium 141, Potassium 4.3, Chloride 109 H, Carbon Dioxide 26.0, Anion Gap 6, BUN 17, Creatinine 1.02, Estim Creat Clear Calc 51.28, Est GFR (MDRD) Af Amer 71, Est GFR (MDRD) Non-Af 59 L, BUN/Creatinine Ratio 16.7, Glucose 137 H, Calcium 9.8, Total Bilirubin 0.30, AST 27, ALT 44, Alkaline Phosphatase 124 H, Total Protein 8.1, Albumin 3.9, Globulin 4.2, Albumin/Globulin Ratio 0.9, Lipase 64 L 11/06/19 08:15: Magnesium 2.3 11/06/19 10:26: Urine Color Yellow, Urine Clarity Clear, Urine pH 6.5, Ur Specific [place] 1.015, Urine Protein 15 H, Urine Glucose (UA) Normal, Urine Ketones Negative, Urine Occult Blood Negative, Urine Nitrite Negative, Urine Bilirubin 1 H, Urine Urobilinogen Normal, Ur Leukocyte Esterase 500 H, Urine RBC 0-5 SEEN, Urine WBC 5-10 SEEN, Ur Squamous Epith Cells 0-5 SEEN, Urine Bacteria 1+, Urine Mucus 0 SEEN Current Medications Glucagon () 1 mg IM .X1 PRN PRN Reason: Hypoglycemia Dextrose (Dextrose 10%-Water) 250 mls @ 999 mls/hr IV .Q16M PRN; Protocol PRN Reason: HYPOGLYCEMIA Insulin Human Lispro (Humalog Kwikpen (Bkc)) 0 unit SC Q6 GUILLERMO; Protocol Ondansetron HCl (Zofran) 4 mg IV Q8H PRN PRN PRN Reason: NAUSEA/VOMITING Prochlorperazine Edisylate (Compazine Iv) 5 mg IV Q4H PRN PRN PRN Reason: Breakthrough nausea/vomiting Assessment/Plan All Active Problems (Last Reviewed 10/05/19 @ 13:42 by Syl Fischer) Anxiety and depression (Acute) Small bowel ileus (Acute) Dizziness (Resolved) UTI (urinary tract infection) (Resolved) The patient is a 59 year old F with history of multiple comorbidities as mentioned above living in a long term came to ER with abdominal distention, abdominal discomfort for 2 days. Patient denies any nausea or vomiting, fever or chills. She has history of constipation and moves hard stool/straining for bowel movement but claims she moves bowel daily. She also has chronic left lower quadrant abdominal pain for about 1 year, started after spider bite as per the patient in left upper thigh [] In ED, afebrile blood pressure 135/112, heart rate 106 pulse ox 96% on room air. Of note, patient also history of anxiety and depression and was started on Prozac but she could not take it for more than 1 dose because of weird emotional side effect. She denies any suicidal attempt/ideation or thoughts. The patient was seen in clinic in October 19, [address] for [address] with cough. CT abdomen shows air-fluid level in the small bowel with distention of the stomach and small bowel. No obvious transition zone. Feces in colon 1. Small bowel ileus with colonic feces: Patient is being admitted in [facility]. Enteric bacteriology panel, stool for occult blood and WC ordered. Abdomen is benign and therefore does not seem need antibiotic for that. Discussed with Dr. Zhang. Patient had colonoscopy in 2012 which showed a small polyp and diverticulosis. Patient was due for June 2019 for colonoscopy but did not show up. Keep patient n.p.o., NG tube suction, Dulcolax suppository and IV fluid Ringer's lactate. On conservative management. 2. Pyuria in UA: Patient denies continued tract symptoms include increased frequency, urgency or dysuria. UA WBC 5-10 cells, LE 500, bacteria 1+ nitrite negative. No glucosuria. Patient has history of recurrent UTI, last one in April when she was probably treated with 10 days of Augmentin and prior to that a year ago. patient had 1 dose of ceftriaxone in ER. The patient has leukocytosis and hemoconcentration probably secondary to hypovolemia and bowel ileus. For now, will follow urine culture. If urine culture is positive or patient spikes fever will start on antibiotic from tomorrow a.m. 3. Intermittent complete heart block status post pacemaker, hypertension, dyslipidemia: Patient follows Dr. chapa. Twelve-lead EKG ordered. 4. Diabetes mellitus type 2: Accu-Chek every 6 hours and cover with Hem-o-brittani sliding scale. A1c ordered for tomorrow a.m. 5. Anxiety and depression: Stable. Denies suicidal ideation/attempt. 6. DVT prophylaxis: On Lovenox 40 minutes subcu daily. Laboratory Results 11/06/19 08:15: WBC 18.9 H, RBC 5.39, Hgb 16.5 H, Hct 50.8 H, MCV 94.2, MCH 30.6, MCHC 32.5, RDW Std Deviation 47.9 H, RDW Coeff of Mark 13.8, Plt Count 227, MPV 10.2, Immature Gran % (Auto) 0.400, Neut % (Auto) 88.4 H, Lymph % (Auto) 4.7 L, [place] % (Auto) 4.8, Eos % (Auto) 1.2, Baso % (Auto) 0.5, Absolute Neuts (auto) 16.7 H, Absolute Lymphs (auto) 0.88, Nucleated RBC % 0 11/06/19 08:15: Sodium 141, Potassium 4.3, Chloride 109 H, Carbon Dioxide 26.0, Anion Gap 6, BUN 17, Creatinine 1.02, Estim Creat Clear Calc 51.28, Est GFR (MDRD) Af Amer 71, Est GFR (MDRD) Non-Af 59 L, BUN/Creatinine Ratio 16.7, Glucose 137 H, Calcium 9.8, Total Bilirubin 0.30, AST 27, ALT 44, Alkaline Phosphatase 124 H, Total Protein 8.1, Albumin 3.9, Globulin 4.2, Albumin/Globulin Ratio 0.9, Lipase 64 L 11/06/19 08:15: Magnesium 2.3 11/06/19 10:26: Urine Color Yellow, Urine Clarity Clear, Urine pH 6.5, Ur Specific [place] 1.015, Urine Protein 15 H, Urine Glucose (UA) Normal, Urine Ketones Negative, Urine Occult Blood Negative, Urine Nitrite Negative, Urine Bilirubin 1 H, Urine Urobilinogen Normal, Ur Leukocyte Esterase 500 H, Urine RBC 0-5 SEEN, Urine WBC 5-10 SEEN, Ur Squamous Epith Cells 0-5 SEEN, Urine Bacteria 1+, Urine Mucus 0 SEEN Clinical Impression(s) from Imaging Studies Abdomen/Pelvis CT 11/06/19 07:38 IMPRESSION: Distention of the left upper quadrant small bowel with air-fluid levels with a relative decompressed appearance of the distal descending colon without obvious zone of transition possibly compatible with with ileus and/or early partial small bowel obstruction. Cannot exclude enteritis. This is in the setting of probable fecal impaction. No evidence of appendicitis. Multiple right renal cysts no evidence of hydronephrosis and no evidence of stone along the course right ureter allowing for beam hardening artifact in the pelvis. Advanced degenerative changes lower lumbar spine with severe neural foramina narrowing central stenosis L4-L5. Enlarged fatty infiltrated liver. Partial visualization of a defibrillator. Code Visit Inpatient E&M: 65722 Init Hosp L3
--- NOTE | 2019-11-06 12:22 | RAD_ITS ---
STUDY: X-RAY - ABDOMEN/PELVIS REASON FOR EXAM: Female, 59 years old. NG PLACEMENT VERIFICATION TECHNIQUE: Single AP view of the abdomen / pelvis. COMPARISON: August 25, 2019 chest x-ray FINDINGS: Normal visualized lung bases. There is an unremarkable bowel gas pattern. Enteric tube is in the stomach. Lower abdomen is not included within the [id number]. The visualized liver, spleen and kidneys are grossly normal in size and morphology. Normal soft tissue structures. Normal visualized osseous structures. RAD/Abdomen Single View IMPRESSION: Enteric tube in stomach Electronically Signed: Teo Hanson MD at 22:25 EST , Service support ,
--- NOTE | 2019-11-06 13:34 | EKG12_ITS ---
Test Reason : Blood Pressure : / mmHG Vent. Rate : 111 BPM Atrial Rate : 111 BPM P-R Int : 136 ms QRS Dur : 082 ms QT Int : 364 ms P-R-T Axes : 071 053 080 degrees QTc Int : 495 ms Sinus tachycardia Otherwise normal ECG When compared with ECG of 25-AUG-2019 21:51, No significant change was found Confirmed by EMILY KELLER, WILLIAN ([id number]), offline editor BEV SCALES ([id number]) on 11/08/2019 9:48:39 AM Referred By: Saji Hernandez Confirmed By:WILLIAN DIAZ MD
[2019-11-06 14:28] LABS: Amphetamine Urine VISTA NEGATIVE (<1000 ng/mL); Barbiturate Urine VISTA NEGATIVE (< 200 ng/mL); Benzodiazepine Urine VISTA NEGATIVE (< 200 ng/mL); Cocaine Urine VISTA NEGATIVE (< 300 ng/mL); Ecstacy Urine VISTA NEGATIVE (< 500 ng/mL); Methadone Urine VISTA NEGATIVE (< 300 ng/mL); PCP Urine VISTA NEGATIVE (< 25 ng/mL); THC Urine VISTA NEGATIVE (< 50 ng/mL); Vista UDS pH Range 6
[2019-11-06] MEDS: Bisacodyl 10 MG Suppository RECTAL (14:34)
[2019-11-06] MEDS: Lactated Ringers 1,000 ML 100 ML IV ×2 (14:43→23:35)
[2019-11-06] MEDS: Enoxaparin 40 MG/0.4 ML Syringe SC (14:44)
--- NOTE | 2019-11-06 15:16 | CON.PCM_ITS ---
Reason for Consult Date of Consultation: 11/06/19 Reason for Consultation: ileus versus obstruction, small bowel distention History of Present Illness: The patient is a 59 year old F 59-year-old female with multiple medical comorbidities. Patient lives currently at the [facility]. she hopes of past medical history significant for diabetes mellitus, hypertension, peripheral polyneuropathy, obstructive sleep apnea, obesity, sick sinus syndrome with a pacemaker placement. The patient is a generally poor historian.she has an allergy to enalapril noted.her outpatient medication list includes Lipitor, Norvasc, Elavil, Flexeril, and a BiPAP machine. she has a history of bilateral hip replacements in 2018. There is listed in her record a cyst removed from her uterus while but the patient denies any abdominal procedures. She had a colonoscopy with polypectomy in 2012 which demonstrated a small tubular adenoma and diverticulosis. It was recommended she have follow-up colonoscopy in 2018.he smokes one half pack of cigarettes per day. She denies alcohol or some other substances. The patient noted recent treatment for bronchitis which she says is chronic. She recalls she was treated with a medication that started with C. When I brought a pleasant words Cipro she feels that was likely the antibiotic. She denied diarrhea or hematochezia or other colon issues since starting the antibiotics. She states she has chronic left lower quadrant abdominal pain which is been present for one year since she had a spider bite. She states she has had some abdominal discomfort for the past 2 days. She has a history of constipation and hard stools. She states she moved her bowels today and passed flatus earlier. She states when she awoke she felt pain and tingling in her legs which plated initially difficult for her to walk. She then had an another complaint of some abdominal discomfort and therefore presented to [facility] emergency department. her report to the emergency department physician demonstrated right sided pain radiating through to her back. She denied any other specific issues. She denied urinary complaints other than urinary frequency but denied dysuria. Laboratory studies demonstrated a urinalysis consistent with a urinary tract infection. CT scan of the abdomen and pelvis was obtained. This demonstrated: IMPRESSION: Distention of the left upper quadrant small bowel with air-fluid levels with a relative decompressed appearance of the distal descending colon without obvious zone of transition possibly compatible with with ileus and/or early partial small bowel obstruction. Cannot exclude enteritis. This is in the setting of probable fecal impaction. No evidence of appendicitis. Multiple right renal cysts no evidence of hydronephrosis and no evidence of stone along the course right ureter allowing for beam hardening artifact in the pelvis. Advanced degenerative changes lower lumbar spine with severe neural foramina narrowing central stenosis L4-L5. Enlarged fatty infiltrated liver. Partial visualization of a defibrillator. my review the CT scan demonstrated nonspecific small bowel findings the some dilatation and some collapsed but without contrast difficult to truly assess. I didn't feel there is a degree of fecal loading. Campbell this is likely more in keeping with an ileus versus an obstruction. I was consulted. Past Medical History Past Medical History (Chronic Problems): Chronic Problems (Last Reviewed 10/05/19 @ 13:42 by Syl Fischer) Diabetes mellitus type 2 in obese (Chronic) Intermittent complete heart block (Chronic) History of permanent cardiac pacemaker placement (Chronic 08/08/19) Essential (primary) hypertension (Chronic) HLD (hyperlipidemia) (Chronic) Nicotine dependence (Chronic) Medical History: Medical History (Last Reviewed 10/05/19 @ 13:42 by Syl Fischer) Intermittent complete heart block (Chronic) I44.2 Essential (primary) hypertension (Chronic) I10 HLD (hyperlipidemia) (Chronic) E78.5 Nicotine dependence (Chronic) F17.200 Morbid obesity E66.01 Obstructive sleep apnea G47.33 Primary osteoarthritis of left hip M16.12 Spinal stenosis M48.00 Type 2 diabetes mellitus E11.9 Allergies enalapril Adverse Reaction (Verified 11/06/19 07:33) COUGH lisinopril Adverse Reaction (Verified 11/06/19 07:33) COUGH Home Medications: Ambulatory Orders Medication Instructions Recorded Amitriptyline HCl [Elavil] 10 mg PO QHS 12/12/16 Amlodipine [Norvasc] 10 mg PO DAILY 02/06/17 cycloBENZAPRine HCl [Flexeril] 10 mg PO TID PRN PRN 02/06/17 Atorvastatin Calcium [Lipitor] 10 mg PO QHS 06/12/17 Acetaminophen [Tylenol Tablet] 650 mg PO Q6H PRN PRN tab 08/09/19 Albuterol Inhaler [Ventolin Hfa] 1 - 2 puff INHALATION Q4H PRN PRN 08/25/19 #1 inhaler Fluticasone Propionate [Flonase 15.8 ml NS BID #1 spray.susp 08/25/19 Allergy Relief] Losartan Potassium [Cozaar] 50 mg PO BID 11/06/19 Surgical History: Surgical History (Last Reviewed 10/05/19 @ 13:42 by Syl Fischer) History of permanent cardiac pacemaker placement (Chronic) Onset Date: 08/08/19 Z95.0 H/O bilateral hip replacements Z96.643 Surgical History: - - lumbar sacral trauma due to fall on a fiberglass boat, bilateral hip replacement. 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 Denies: Chills, Fever, Weight Change HEENT: Denies: Head Aches, Sinus Congestion, Sinus Drainage Cardiovascular: Denies: Chest Pain, Palpitations Respiratory: Denies: Cough, Shortness of breath at rest, Sputum production Gastrointestinal: Reports: Abdominal Pain. Denies: Nausea, Vomiting Genitourinary: Reports: Frequency. Denies: Dysuria Musculoskeletal: Reports: Leg Pain. Denies: Joint Pain, Joint Tenderness Skin: Denies: Rash, Wounds Neurological: Denies: Numbness, Tingling, Focal weakness Psychiatric: Denies: Anxiety, Depression, Homicidal Ideations, Suicidal Ideations Hematologic/ Lymphatic: Denies: Easy Bruising, Easy Bleeding Patient Problems: Active and Suspected Problems (Last Reviewed 10/05/19 @ 13:42 by Syl Fischer) Anxiety and depression (Acute) Small bowel ileus (Acute) - Physical Exam Vitals/I&O's: Vital Signs Temp Pulse Resp BP Pulse Ox 97.8 F 107 H 18 164/75 H 97 11/06/19 13:00 11/06/19 13:00 11/06/19 13:00 11/06/19 13:00 11/06/19 13:00 Oxygen Delivery Method Room Air Weight: 108.3 kg Body Mass Index (BMI) 40.9 Finger Stick Blood Glucose 107 Intake and Output for Last 24 Hours 11/04/19 11/05/19 11/06/19 23:59 23:59 23:59 Intake Total 50 / 50 Balance 50 / 50 General: Alert, Oriented x3, Cooperative Lungs: Rales, Rhonchi Cardiovascular: Regular rate, Regular Rhythm Abdomen: Bowel Sounds Present, Soft, Non Tender Laboratory Results 11/06/19 08:15: WBC 18.9 H, RBC 5.39, Hgb 16.5 H, Hct 50.8 H, MCV 94.2, MCH 30.6, MCHC 32.5, RDW Std Deviation 47.9 H, RDW Coeff of Mark 13.8, Plt Count 227, MPV 10.2, Immature Gran % (Auto) 0.400, Neut % (Auto) 88.4 H, Lymph % (Auto) 4.7 L, [place] % (Auto) 4.8, Eos % (Auto) 1.2, Baso % (Auto) 0.5, Absolute Neuts (auto) 16.7 H, Absolute Lymphs (auto) 0.88, Nucleated RBC % 0 11/06/19 08:15: Sodium 141, Potassium 4.3, Chloride 109 H, Carbon Dioxide 26.0, Anion Gap 6, BUN 17, Creatinine 1.02, Estim Creat Clear Calc 51.28, Est GFR (MDRD) Af Amer 71, Est GFR (MDRD) Non-Af 59 L, BUN/Creatinine Ratio 16.7, Glucose 137 H, Calcium 9.8, Total Bilirubin 0.30, AST 27, ALT 44, Alkaline Phosphatase 124 H, Total Protein 8.1, Albumin 3.9, Globulin 4.2, Albumin/Globulin Ratio 0.9, Lipase 64 L 11/06/19 08:15: Magnesium 2.3 11/06/19 10:26: Urine Color Yellow, Urine Clarity Clear, Urine pH 6.5, Ur Specific [place] 1.015, Urine Protein 15 H, Urine Glucose (UA) Normal, Urine Ketones Negative, Urine Occult Blood Negative, Urine Nitrite Negative, Urine Bilirubin 1 H, Urine Urobilinogen Normal, Ur Leukocyte Esterase 500 H, Urine RBC 0-5 SEEN, Urine WBC 5-10 SEEN, Ur Squamous Epith Cells 0-5 SEEN, Urine Bacteria 1+, Urine Mucus 0 SEEN 11/06/19 10:26: Urine Opiates Screen POSITIVE H, Urine Methadone Screen NEGATIVE, Ur Barbiturates Screen NEGATIVE, Ur Phencyclidine Scrn NEGATIVE, Ur Amphetamines Screen NEGATIVE, U Methamphetamin-MDMA NEGATIVE, U Benzodiazepines Scrn NEGATIVE, Urine Cocaine Screen NEGATIVE, U Cannabinoids Screen NEGATIVE, Ur Drug Screen Comment Current Medications Albuterol/Ipratropium (Duoneb) 3 ml INHALATION Q4H PRN PRN Reason: sob Amlodipine Besylate (Norvasc) 10 mg NG DAILY [facility] Bisacodyl (Dulcolax) 10 mg RECTAL DAILY PRN PRN Reason: constipation Enoxaparin Sodium (Lovenox) 40 mg SC DAILY [facility] Last Admin: 11/06/19 14:44 Dose: 40 mg Documented by: Fluticasone Propionate (Flonase Nasal [place]) 1 spray NASAL BID GUILLERMO Glucagon () 1 mg IM .X1 PRN PRN Reason: Hypoglycemia Hydralazine HCl (Apresoline Iv) 10 mg IV Q4H PRN PRN PRN Reason: SBP>160 MMHG Lactated Ringer's () 1,000 mls @ 100 mls/hr IV .Q10H [facility] Last Admin: 11/06/19 14:43 Dose: 100 mls/hr Documented by: Insulin Human Lispro (Humalog Kwikpen (Bkc)) 0 unit SC Q6 [facility]LL[facility]; Protocol Last Admin: 11/06/19 13:19 Dose: Not Given Documented by: Ondansetron HCl (Zofran) 4 mg IV Q8H PRN PRN PRN Reason: NAUSEA/VOMITING Prochlorperazine Edisylate (Compazine Iv) 5 mg IV Q4H PRN PRN PRN Reason: Breakthrough nausea/vomiting Sodium Chloride () 10 - 40 ml IV UD PRN PRN Reason: SALINE FLUSH Assessment/Plan All Active Problems (Last Reviewed 10/05/19 @ 13:42 by Syl Fischer) Anxiety and depression (Acute) Small bowel ileus (Acute) Dizziness (Resolved) UTI (urinary tract infection) (Resolved) indeterminant CT imaging of small bowel, clinically benign abdomen, recent bronchitis treatment, question urinary tract infection-ileus versus obstruction A nasogastric tube was placed. This is draining gastric-appearing fluid. The patient is currently comfortable.I would recommend abdominal multiview in the morning and follow the patient clinically. If there is a questionable ileus versus obstruction, Gastrografin can be given through the NG tube and watched for its progression through the small bowel.
[2019-11-06 18:00] LABS: Bedside Glucose 105 mg/dL (70-110)
[2019-11-06] MEDS: Fluticasone 0.05% 1 SPRAY NASAL.SRY NASAL (21:46)
[2019-11-06] MEDS: Ketorolac 30 MG/ML Syringe IV (21:46)
[2019-11-06] MEDS: 0.9% Saline Lock 10 ML Syringe IV (23:35)
[2019-11-06 23:41] LABS: Bedside Glucose 124 mg/dL (70-110)
[2019-11-07] VITALS (8 sets, daily range): BP systolic 145–153; BP diastolic 72–90; PULSE 77–103; RESP 16–18; TEMP 36.4–37.2; O2SAT 92–98
[2019-11-07 06:20] LABS: Absolute Lymphocyte Count 1.54 X10^3/uL (0.83-4.51); Absolute Neutrophil Count 6.7 X10^3/uL (2.0-7.7); Basophil# 0.04 X10^3/uL; Basophil% 0.4 % (0-1); Eosinophil# 0.07 X10^3/uL; Eosinophils% 0.8 % (0-5); Hematocrit 47.4 % (37-47); Hemoglobin 15.4 g/dL (12.0-15.0); Lymphocyte # 1.54 X10^3/ul (4.0); Lymphocyte % 16.8 % (19-41); Mean Corp Hgb Conc 32.5 g/dL (32-36); Mean Corpuscular Hgb 30.9 pg (27.0-32.0); Mean Corpuscular Volume 95.2 fL (81-99); Monocyte% 8.7 % (0-10); NRBC Flagged by Analyzer 0 % (0-5); Neutrophil # 6.67 X10^3/uL (2.7-7.7); Neutrophil % 72.9 % (47-70); POSITIVE COUNT YES; Platelet Count 136 K/mm3 (150-450); RBC Distribution Width CV 14.3 % (11.6-14.6); RBC Distribution Width SD 49.7 fl (35.1-43.9); Red Blood Count 4.98 M/mm3 (4.2-5.4); White Blood Count 9.2 K/mm3 (4.4-11.0)
[2019-11-07 06:28] LABS: Differential Indicated SCAN CRITERIA MET
[2019-11-07 06:51] LABS: AST(SGOT) 33 U/L (15-37); Alanine Aminotransfer ALT/SGPT 43 U/L (13-56); Albumin, Serum 3.3 g/dL (3.2-5.0); Alkaline Phosphatase 109 U/L (45-117); Anion Gap 6 (5-15); BUN 16 mg/dL (7-18); BUN/Creat Ratio 18.2 RATIO (10-20); Bilirubin, Direct 0.11 mg/dL (0.00-0.30); Chloride 111 mmol/L (98-107); Creatinine, Serum 0.88 mg/dL (0.55-1.02); EST Glomerular Filtration Rate 70 mL/min (>60); Est Glom Filt Rate - Afr Amer 85 mL/min (>60); Estimated Creatinine Clearance 59.44 ml/min; Globulin 4.3 g/dL (2.2-4.2); Glucose 104 mg/dL (74-106); Potassium 3.6 mmol/L (3.5-5.1); Protein, Total 7.6 g/dL (6.4-8.2); Sodium Level 140 mmol/L (136-145); Thyroid Stim Hormone (TSH) 1.02 uIU/mL (0.358-3.74)
[2019-11-07 07:14] LABS: Differential Comment SCANNED
[2019-11-07 08:00] LABS: Bedside Glucose 83 mg/dL (70-110)
[2019-11-07 08:09] LABS: Hemoglobin A1c 6.6 % (4.2-6.3)
--- NOTE | 2019-11-07 10:20 | RAD_ITS ---
STUDY: X-RAY - ABDOMEN/PELVIS REASON FOR EXAM: Female, 59 years old. ILEUS VS OBSTRUCTION, VOMITING TECHNIQUE: Vomiting COMPARISON: None. FINDINGS: NG tube tip in the body of the stomach There is an unremarkable bowel gas pattern. There is no demonstrated free abdominal air. The visualized liver, spleen and kidneys are grossly normal in size and morphology. Normal soft tissue structures. Bilateral hip joint replacements free of complication RAD/Abd Inc Decub and/or Erect IMPRESSION: No acute findings Electronically Signed: Richard Wallis MD at 13:39 EST , Service support ,
[2019-11-07] MEDS: Lactated Ringers 1,000 ML 100 ML IV (10:35)
--- NOTE | 2019-11-07 10:35 | CASEMGMT ---
Social Work Note Pt is listed as residing at [facility]. SW met with pt and introduced self and role at [facility]. Pt is alert and orientated x3. Pt confirms that she is residing at [facility] and plan is to return. Pt states she plans on moving out November 18 and moving to [place], [place] where her son lives. Pt states she plans on finding an apartment to live in in [place]. Pt denied needed additional housing information/resources at this time. Krystin Cortez SOLE PAINTER, SIGN PAINTER HELPER
[2019-11-07] MEDS: 0.9% Saline Lock 10 ML Syringe IV (10:36)
[2019-11-07] MEDS: Fluticasone 0.05% 1 SPRAY NASAL.SRY NASAL ×2 (10:36→21:35)
--- NOTE | 2019-11-07 11:26 | CASEMGMT ---
Social Work Note Per director of surgery questions, pt hasn't completed HCPOA or LW and denied wanting information. Krystin Cortez MANUFACTURING CONTROLS ENGINEER, TEAM PHYSICIAN
[2019-11-07 12:16] LABS: Bedside Glucose 100 mg/dL (70-110)
--- NOTE | 2019-11-07 12:36 | CASEMGMT ---
RN CM Assessment Introduced role of RN CM to patient, patient currently sitting up in chair next t bed at time of discussion with NGT draining.? Patient is alert, oriented and able?to participate in RN CM Assessment. ?Care providers, pharmacy, and demographics verified. Presentation: Abd discomfort Admit Dx: SBO Re-Admit: No Barriers/Issues: Patient states that she is currently living at the [facility] and is supposed to be leaving on November 18, 2019. [facility] her plan was to take the bus and go visit her son on the and look for a place to live out there by her son. [facility] has been in contact with a land lord over there already for a place. States she has been battling Bronchitis since Aug 2019, had her pacemaker placed x1 month ago and now this illness, states that she would like to go to [facility] to further progress in healing upon DC as she feels her equilibrium has been off. PCP: Lamberto Rogers Specialists: Ortho- [facility] Dr Edwards, Cardio- Dr Carrero Preferred Pharmacy: [facility] Insurance: [facility] A&B Rx Benefit:?Yes- States with [employer] ?LNOK: Sister Cady Yip # [phone] LW/HPOA: States she thinks she has both and her son Teo Negro is her HPOA-does not know number and states he is currently at [facility] Living Arrangements: Currently living at the [facility]? ADL?s: Independent with ambulation and ADLs Transportation: [facility] Transport, Transport through her Insurance, [employer] DME: Cpap- [facility] [employer] HHC: None SNF: Past at [facility] Goal: [facility], denies offered SNF Facility list. Denies any issues, concerns, or questions with DC planning at this time. Aware CM remains available for any emerging needs. DC PLAN: SNF vs Return to [facility]. GRAHAM Henry
[2019-11-07] MEDS: Enoxaparin 40 MG/0.4 ML Syringe SC (12:40)
--- NOTE | 2019-11-07 13:37 | CASEMGMT ---
Addendum entered by Krystin Cortez 11/07/19 15:56: SW received message from Nimisha at [facility] stating pt doesn't have medicaid currently and their DON reviewed referral and there is nothing to skill pt under Medicare for Medicare to pay for SNF. Nimisha states pt could come to [facility] under pending medicaid and LOC. SW in to speak with pt. WAYNE updated pt that there is nothing to skilled pt under Medicare and it would be private pay for SNF. WAYNE explained the other option of completed medicaid application and going to [facility] under pending Medicaid. WAYNE informed pt that if she chooses to go to SNF under pending medicaid and for some reason pt doesn't get approved for SNF, then pt will be financially responsible for SNF. Pt states she will think about. WAYNE provided pt with Medicaid application and encouraged pt to complete application this evening and then this worker can follow up with pt tomorrow to confirm discharge plans. Pt states understanding. WAYNE placed a call to Nimisha at [facility] stating pt will think about pending medicaid and let this worker know tomorrow what she decides. Original Note: Social Work Note SW received consult that pt would like to go to [facility] at discharge. WAYNE placed a call to Nimisha at [facility] and provided referral. It should be noted that both PT/OT didn't recommend any additional therapy at discharge. Nimisha states she will review referral and determine if she can get optical dispenser under Medicare. WAYNE faxed referral. Plan: [facility] pending acceptance and if pt is skillable. Krystin Cortez REAL ESTATE INTERN, IT HELP DESK TECHNICIAN
[2019-11-07] MEDS: amLODIPine 10 MG Tablet NG (14:42)
[2019-11-07 16:46] LABS: Bedside Glucose 115 mg/dL (70-110)
--- NOTE | 2019-11-07 16:57 | PCM.PN.SRG ---
Patient Problems: Active and Suspected Problems (Last Reviewed 10/05/19 @ 13:42 by Syl Fischer) Anxiety and depression (Acute) Small bowel ileus (Acute) Subjective: no complaint of abdominal pain, denies bowel movement or flatus - Physical Exam Vitals/I&O's: Vital Signs Temp Pulse Resp BP Pulse Ox 98.9 F 100 18 153/90 H 97 11/07/19 14:35 11/07/19 14:35 11/07/19 14:35 11/07/19 14:35 11/07/19 14:35 Oxygen Flow Rate (L/min) 2 Oxygen Delivery Method Room Air Weight: 108.6 kg Body Mass Index (BMI) 40.9 Finger Stick Blood Glucose 107 Intake and Output for Last 24 Hours 11/05/19 11/06/19 11/07/19 23:59 23:59 23:59 Intake Total / 1150 / 1150 Output Total 450 / 650 1050 / 1050 Balance 1551.25 / 1351.25 100 / 100 General: Alert, Oriented x3, Cooperative Lungs: Clear to auscultation, Normal air movement Cardiovascular: Regular rate, No murmurs Abdomen: Bowel Sounds Present, Soft, Non Tender, Hypoactive Bowel Sounds Microbiology Past 72 Hours 11/06/19 15:31 Stool Enteric Bacteriology - Final Norovirus 11/06/19 15:31 Stool Stool Lactoferrin - Final 11/06/19 15:31 Stool Stool Occult Blood (CHETAN) - Final Laboratory Results 11/06/19 17:54: POC Glucose 105 11/06/19 23:17: POC Glucose 124 H 11/07/19 05:54: WBC 9.2, RBC 4.98, Hgb 15.4 H, Hct 47.4 H, MCV 95.2, MCH 30.9, MCHC 32.5, RDW Std Deviation 49.7 H, RDW Coeff of Mark 14.3, Plt Count 136 L, MPV 11.0, Immature Gran % (Auto) 0.400, Neut % (Auto) 72.9 H, Lymph % (Auto) 16.8 L, [place] % (Auto) 8.7, Eos % (Auto) 0.8, Baso % (Auto) 0.4, Absolute Neuts (auto) 6.7, Absolute Lymphs (auto) 1.54, Nucleated RBC % 0, Differential Comment SCANNED 11/07/19 05:54: Sodium 140, Potassium 3.6, Chloride 111 H, Carbon Dioxide 23.0, Anion Gap 6, BUN 16, Creatinine 0.88, Estim Creat Clear Calc 59.44, Est GFR (MDRD) Af Amer 85, Est GFR (MDRD) Non-Af 70, BUN/Creatinine Ratio 18.2, Glucose 104, Calcium 9.0, Total Bilirubin 0.30, Direct Bilirubin 0.11, AST 33, ALT 43, Alkaline Phosphatase 109, Total Protein 7.6, Albumin 3.3, Globulin 4.3 H, TSH 1.02 11/07/19 05:54: Hemoglobin A1c 6.6 H 11/07/19 06:04: POC Glucose 83 11/07/19 12:09: POC Glucose 100 11/07/19 16:38: POC Glucose 115 H Current Medications Albuterol/Ipratropium (Duoneb) 3 ml INHALATION Q4H PRN PRN Reason: sob Amlodipine Besylate (Norvasc) 10 mg NG DAILY [facility] Last Admin: 11/07/19 14:42 Dose: 10 mg Documented by: Bisacodyl (Dulcolax) 10 mg RECTAL DAILY PRN PRN Reason: constipation Enoxaparin Sodium (Lovenox) 40 mg SC DAILY [facility] Last Admin: 11/07/19 12:40 Dose: 40 mg Documented by: Fluticasone Propionate (Flonase Nasal [place]) 1 spray NASAL BID [facility] Last Admin: 11/07/19 10:36 Dose: 1 spray Documented by: Glucagon () 1 mg IM .X1 PRN PRN Reason: Hypoglycemia Hydralazine HCl (Apresoline Iv) 10 mg IV Q4H PRN PRN PRN Reason: SBP>160 MMHG Hydromorphone HCl (Dilaudid Inj) 0.5 mg IV Q4H PRN PRN PRN Reason: Pain Score 7-10/10 Lactated Ringer's () 1,000 mls @ 100 mls/hr IV .Q10H [facility] Last Admin: 11/07/19 10:35 Dose: 100 mls/hr Documented by: Insulin Human Lispro (Humalog Kwikpen (Bkc)) 0 unit SC [facility]; Protocol Last Admin: 11/07/19 16:40 Dose: Not Given Documented by: Ketorolac Tromethamine (Toradol) 15 mg IV Q8H PRN PRN PRN Reason: Pain Score 3-6/10 Stop: 11/11/19 21:18 Ondansetron HCl (Zofran) 4 mg IV Q8H PRN PRN PRN Reason: NAUSEA/VOMITING Prochlorperazine Edisylate (Compazine Iv) 5 mg IV Q4H PRN PRN PRN Reason: Breakthrough nausea/vomiting Sodium Chloride () 10 - 40 ml IV UD PRN PRN Reason: SALINE FLUSH Last Admin: 11/07/19 10:36 Dose: 10 ml Documented by: Medical Necessity - Tobacco Use Smoking Status: Current every day smoker Assessment/Plan All Active Problems (Last Reviewed 10/05/19 @ 13:42 by Syl Fischer) Anxiety and depression (Acute) Small bowel ileus (Acute) Dizziness (Resolved) UTI (urinary tract infection) (Resolved) indeterminant CT imaging of small bowel, clinically benign abdomen, recent bronchitis treatment, question urinary tract infection-ileus versus obstruction A nasogastric tube was placed. This is draining gastric-appearing fluid. x-ray today demonstrates normal bowel gas pattern. I recommend the NG tube be removed and the patient be given liquids cautiously as this is likely an ileus.
--- NOTE | 2019-11-07 18:20 | PCM.PROGNOTE ---
Patient Problems: Active and Suspected Problems (Last Reviewed 10/05/19 @ 13:42 by Syl Fischer) Anxiety and depression (Acute) Small bowel ileus (Acute) Subjective: Patient was seen and examined today, her stool enteric panel resulted positive for norovirus, general surgery is decided to remove her NG tube, I do not feel the patient needs continued IV antibiotics-urinalysis did not look remarkable to indicate a possible UTI. - Physical Exam Vitals/I&O's: Vital Signs Temp Pulse Resp BP Pulse Ox 98.9 F 100 18 153/90 H 97 11/07/19 14:35 11/07/19 14:35 11/07/19 14:35 11/07/19 14:35 11/07/19 14:35 Oxygen Flow Rate (L/min) 2 Oxygen Delivery Method Room Air Weight: 108.6 kg Body Mass Index (BMI) 40.9 Finger Stick Blood Glucose 107 Intake and Output for Last 24 Hours 11/05/19 11/06/19 11/07/19 23:59 23:59 23:59 Intake Total 2000.25 / 1550 / 1550 Output Total 450 / 650 1050 / 1050 Balance 1551.25 / 1351.25 500 / 500 General: Alert, Oriented x3, Cooperative, No apparent distress, Well developed HEENT: Atraumatic, PERRLA, EOMI, Normocephalic Oral: Moist Mucosa Neck: Supple, Trachea Midline, Thyroid Normal Size and Texture Lungs: Clear to auscultation, Normal air movement, No rhonchi, No wheeze Cardiovascular: Regular rate, Regular Rhythm, Normal S1, Normal S2, No murmurs Abdomen: Bowel Sounds Present, Soft, Non Tender, Non-Distended, Hypoactive Bowel Sounds, Obese Extremities: No clubbing, No cyanosis, No edema, Capillary Refill Less than 3 Seconds Skin: No rashes, No breakdown Musculoskeletal: No Tenderness to Palpation of Joints or Extremities Neurological: Cranial nerves II-XII grossly intact, Neuro grossly intact, Sensory exam intact to light touch and pain Psych/Mental Status: Normal Affect, Appropriate, Alert and oriented to time, place, person, mood and affect Microbiology Past 72 Hours 11/06/19 15:31 Stool Enteric Bacteriology - Final Norovirus 11/06/19 15:31 Stool Stool Lactoferrin - Final 11/06/19 15:31 Stool Stool Occult Blood (CHETAN) - Final Laboratory Results 11/06/19 23:17: POC Glucose 124 H 11/07/19 05:54: WBC 9.2, RBC 4.98, Hgb 15.4 H, Hct 47.4 H, MCV 95.2, MCH 30.9, MCHC 32.5, RDW Std Deviation 49.7 H, RDW Coeff of Mark 14.3, Plt Count 136 L, MPV 11.0, Immature Gran % (Auto) 0.400, Neut % (Auto) 72.9 H, Lymph % (Auto) 16.8 L, [place] % (Auto) 8.7, Eos % (Auto) 0.8, Baso % (Auto) 0.4, Absolute Neuts (auto) 6.7, Absolute Lymphs (auto) 1.54, Nucleated RBC % 0, Differential Comment SCANNED 11/07/19 05:54: Sodium 140, Potassium 3.6, Chloride 111 H, Carbon Dioxide 23.0, Anion Gap 6, BUN 16, Creatinine 0.88, Estim Creat Clear Calc 59.44, Est GFR (MDRD) Af Amer 85, Est GFR (MDRD) Non-Af 70, BUN/Creatinine Ratio 18.2, Glucose 104, Calcium 9.0, Total Bilirubin 0.30, Direct Bilirubin 0.11, AST 33, ALT 43, Alkaline Phosphatase 109, Total Protein 7.6, Albumin 3.3, Globulin 4.3 H, TSH 1.02 11/07/19 05:54: Hemoglobin A1c 6.6 H 11/07/19 06:04: POC Glucose 83 11/07/19 12:09: POC Glucose 100 11/07/19 16:38: POC Glucose 115 H Current Medications Albuterol/Ipratropium (Duoneb) 3 ml INHALATION Q4H PRN PRN Reason: sob Amlodipine Besylate (Norvasc) 10 mg NG DAILY [facility] Last Admin: 11/07/19 14:42 Dose: 10 mg Documented by: Bisacodyl (Dulcolax) 10 mg RECTAL DAILY PRN PRN Reason: constipation Enoxaparin Sodium (Lovenox) 40 mg SC DAILY [facility] Last Admin: 11/07/19 12:40 Dose: 40 mg Documented by: Fluticasone Propionate (Flonase Nasal [place]) 1 spray NASAL BID [facility] Last Admin: 11/07/19 10:36 Dose: 1 spray Documented by: Glucagon () 1 mg IM .X1 PRN PRN Reason: Hypoglycemia Hydralazine HCl (Apresoline Iv) 10 mg IV Q4H PRN PRN PRN Reason: SBP>160 MMHG Hydromorphone HCl (Dilaudid Inj) 0.5 mg IV Q4H PRN PRN PRN Reason: Pain Score 7-10/10 Lactated Ringer's () 1,000 mls @ 100 mls/hr IV .Q10H GUILLERMO Last Admin: 11/07/19 10:35 Dose: 100 mls/hr Documented by: Insulin Human Lispro (Humalog Kwikpen (Bkc)) 0 unit SC ACHS [facility]; Protocol Last Admin: 11/07/19 16:40 Dose: Not Given Documented by: Ketorolac Tromethamine (Toradol) 15 mg IV Q8H PRN PRN PRN Reason: Pain Score 3-6/10 Stop: 11/11/19 21:18 Ondansetron HCl (Zofran) 4 mg IV Q8H PRN PRN PRN Reason: NAUSEA/VOMITING Prochlorperazine Edisylate (Compazine Iv) 5 mg IV Q4H PRN PRN PRN Reason: Breakthrough nausea/vomiting Sodium Chloride () 10 - 40 ml IV UD PRN PRN Reason: SALINE FLUSH Last Admin: 11/07/19 10:36 Dose: 10 ml Documented by: Medical Necessity - Tobacco Use Smoking Status: Current every day smoker Assessment/Plan All Active Problems (Last Reviewed 10/05/19 @ 13:42 by Syl Fischer) Anxiety and depression (Acute) Small bowel ileus (Acute) Dizziness (Resolved) UTI (urinary tract infection) (Resolved) #1 acute ileus-General surgery is remove the patient's NG tube today, her diet will be advanced #2 acute norovirus gastroenteritis-supportive care #3 morbid obesity #4 hyperlipidemia #5 essential hypertension I do not feel patient had an acute cystitis on admission Code Visit Inpatient E&M: 93340 Subs Hosp L2
[2019-11-07 23:01] LABS: Bedside Glucose 108 mg/dL (70-110)
[2019-11-08] MEDS: Lactated Ringers 1,000 ML 100 ML IV (00:23)
[2019-11-08 02:35] VITALS: BP 148/82; PULSE 106; RESP 16; TEMP 36.9; O2SAT 94
[2019-11-08 06:31] LABS: Bedside Glucose 106 mg/dL (70-110)
[2019-11-08 08:35] VITALS: BP 135/79; PULSE 86; RESP 18; TEMP 36.7; O2SAT 97
[2019-11-08] MEDS: Fluticasone 0.05% 1 SPRAY NASAL.SRY NASAL (09:07)
[2019-11-08] MEDS: Enoxaparin 40 MG/0.4 ML Syringe SC (09:07)
[2019-11-08] MEDS: amLODIPine 10 MG Tablet NG (09:07)
--- NOTE | 2019-11-08 10:00 | CASEMGMT ---
Social Work Note WAYNE reviewed chart, pt is independent with all ADLS likely wouldn't qualify for LOC under pending medicaid plus with the holiday tomorrow pt will likely be at [facility] for unnecessary days. WAYNE met with pt. WAYNE updated pt that LOC under pending medicaid will likely not get approved as pt is independent with all ADLS, no therapy is being recommended, pt has no wound care, IV antibiotics have been discontinued and pt is able to feed self. Pt states well if it is not going to get approved then I will just go back to the senior care. WAYNE again reiterated to pt that there is nothing to skill her on and [facility] couldn't even skill pt under Medicare as pt has no skillable needs. Pt again states I will just go back to the senior care then. Pt asked this worker to throw away her Medicaid application. SW asked pt if she wanted this worker to still submit for Medicaid and pt denied. WAYNE placed a call to Nimisha at [facility] and updated her that pt will be returning to the senior care at discharge. 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
[2019-11-08 11:30] LABS: Bedside Glucose 81 mg/dL (70-110)
--- NOTE | 2019-11-08 14:19 | DCINST_ITS ---
- Discharge Diagnoses Current Active Problems: Current Active and Chronic Problems (Last Reviewed 10/05/19 @ 13:42 by Syl Fischer) Diabetes mellitus type 2 in obese (Chronic) Anxiety and depression (Acute) Small bowel ileus (Acute) You will use the following diet at home:: No restrictions Your food should be the consistency of: Regular Your liquids should be the consistency of: Regular/Thin Discharge Activity: Return to Normal Activity Weight Bearing Status: Full weight bearing Allergies/Adverse Reactions: Allergies enalapril Adverse Reaction (Verified 11/06/19 07:33) COUGH lisinopril Adverse Reaction (Verified 11/06/19 07:33) COUGH Medications to take at Discharge Amitriptyline HCl [Elavil] 10 mg PO QHS 12/12/16 Amlodipine [Norvasc] 10 mg PO DAILY 02/06/17 cycloBENZAPRine HCl [Flexeril] 10 mg PO TID PRN PRN 02/06/17 Atorvastatin Calcium [Lipitor] 10 mg PO QHS 06/12/17 Acetaminophen [Tylenol Tablet] 650 mg PO Q6H PRN PRN tab 08/09/19 Albuterol Inhaler [Ventolin Hfa] 1 - 2 puff INHALATION Q4H PRN PRN #1 inhaler 08/25/19 Fluticasone Propionate [Flonase Allergy Relief] 15.8 ml NS BID #1 spray.susp 08/25/19 Losartan Potassium [Cozaar] 50 mg PO BID 11/06/19 Primary Care Physician: Lamberto Rogers MD [Primary Care Provider] - Please follow up with your Primary Care Physician in: in 3-4 weeks Test Results: Test results from this visit will be discussed in further detail at your follow- up appointment, if applicable.
[2019-11-08 14:30] VITALS: BP 148/72; PULSE 90; RESP 18; TEMP 36.9; O2SAT 97
--- NOTE | 2019-11-10 16:41 | PCM.DC.SUM ---
Discharge Date and Diagnosis Date of Admission: 11/06/19 Date of Discharge: 11/08/19 - Primary Discharge Diagnosis #1 acute ileus #2 acute norovirus gastroenteritis #3 morbid obesity #4 hyperlipidemia #5 essential hypertension I do not feel patient had an acute cystitis on admission Code Visit - Secondary Discharge Diagnosis Chronic Problems (Last Reviewed 10/05/19 @ 13:42 by Syl Fischer) Diabetes mellitus type 2 in obese (Chronic) Intermittent complete heart block (Chronic) History of permanent cardiac pacemaker placement (Chronic 08/08/19) Essential (primary) hypertension (Chronic) HLD (hyperlipidemia) (Chronic) Nicotine dependence (Chronic) Hospital Course and Treatment Operations: None, total hip replacement Procedures: None Summary of Care Provided: The patient is a 59 year old F who was seen in the emergency room at [facility] with a chief complaint of abdominal pain. Patient denied any dysuria or urinary frequency. Work-up in the emergency room included a CBC which showed an elevated white blood cell count, chemistries were unremarkable, lipase was 64. Urinalysis was positive for leukocyte Estrace as well as 5-10 WBCs and +1 bacteria, initially she was felt to have had a urinary tract infection, CT scan of the abdomen and pelvis showed a left upper quadrant small bowel distention with air-fluid levels-ileus versus small bowel obstruction. Patient was admitted to [place] [address], she was seen in consultation by general surgery, and she was started on IV Rocephin for presumed acute cystitis. General surgery inserted the nasogastric tube, it was ultimately the impression that the patient had an ileus versus an actual small bowel obstruction. Patient enteric stool panel resulted positive for norovirus, her urine culture only showed low numbers of lactobacillus which was not felt to be significant and therefore she was not felt to have had an acute cystitis. Patient's NG tube was ultimately discontinued and she tolerated the diet well. On 11/08/2019, patient was seen and examined: On examination she appeared in good health and spirits. Vital signs as documented. Skin warm and dry and without overt rashes. Neck without JVD. Lungs clear. Heart exam notable for regular rhythm, normal sounds and absence of murmurs, rubs or gallops. Abdomen unremarkable and without evidence of organomegaly, masses, or abdominal aortic enlargement. Extremities nonedematous. Neuro: Cranial nerves II through XII are grossly intact, no focal motor deficits were noted, sensation to light touch and pinprick is intact. Psych: Patient is alert and oriented x3, she does not appear anxious or depressed On 11/08/2019, patient was seen and examined and felt to be in stable condition for discharge home - Physical Exam Vitals/I&O's: Vital Signs Temp Pulse Resp BP Pulse Ox 98.4 F 90 18 148/72 H 97 11/08/19 14:30 11/08/19 14:30 11/08/19 14:30 11/08/19 14:30 11/08/19 14:30 Oxygen Flow Rate (L/min) 2 Oxygen Delivery Method Room Air Weight: 106.2 kg Body Mass Index (BMI) 40.9 Finger Stick Blood Glucose 107 Intake and Output for Last 24 Hours 11/08/19 11/09/19 11/10/19 23:59 23:59 23:59 Intake Total 1900 / 1900 Balance 1900 / 1900 Microbiology Past 72 Hours 11/06/19 10:26 Urine, Clean Catch Urine Culture - Final Presumptive Lactobacillus sp. 11/06/19 15:31 Stool Enteric Bacteriology - Final Norovirus Discharge Activity: Return to Normal Activity Weight Bearing Status: Full weight bearing Home Medications: Medications to take at Discharge Amitriptyline HCl [Elavil] 10 mg PO QHS 12/12/16 Amlodipine [Norvasc] 10 mg PO DAILY 02/06/17 cycloBENZAPRine HCl [Flexeril] 10 mg PO TID PRN PRN 02/06/17 Atorvastatin Calcium [Lipitor] 10 mg PO QHS 06/12/17 Acetaminophen [Tylenol Tablet] 650 mg PO Q6H PRN PRN tab 08/09/19 Albuterol Inhaler [Ventolin Hfa] 1 - 2 puff INHALATION Q4H PRN PRN #1 inhaler 08/25/19 Fluticasone Propionate [Flonase Allergy Relief] 15.8 ml NS BID #1 spray.susp 08/25/19 Losartan Potassium [Cozaar] 50 mg PO BID 11/06/19 Primary Care Physician: Lamberto Rogers MD [Primary Care Provider] - Please follow up with your Primary Care Physician in: in 3-4 weeks Disposition: Home Minutes spent on discharge:: 31 Patient Condition:: Stable Medical Necessity - Tobacco Use Smoking Status: Current every day smoker Meaningful Use Info Meaningful Use Diagnoses (Choose all that apply): None applicable Code Visit Inpatient E&M: 40297 Disch Hosp
== END 2019-11-08 14:31 | disposition home or self-care (01) | DRG 389 ==
LOC: ED 07:48 → MS3 15:33
PROVIDERS: Surgery; Admitting Provider Internal Medicine; Emergency Provider Emergency Medicine; Family Provider Family Medicine; PCP Family Medicine; Referring Provider Internal Medicine; Visit Provider Internal Medicine
DX: K56.7 Ileus, unspecified (principal); I44.2 Atrioventricular block, complete; Z68.41 Body mass index [BMI] 40.0-44.9, adult; A08.11 Acute gastroenteropathy due to Norwalk agent; Z95.0 Presence of cardiac pacemaker; E11.42 Type 2 diabetes mellitus with diabetic polyneuropathy; E66.01 Morbid (severe) obesity due to excess calories; E78.5 Hyperlipidemia, unspecified; I10 Essential (primary) hypertension; F17.200 Nicotine dependence, unspecified, uncomplicated
CPT/HCPCS: 36415; 74018; 74019; 74176; 80048; 80053; 80076; 80307; 81001; 82274; 82962; 83036; 83630; 83690; 83735; 84443; 85025; 87086; 87088; 87506; 93005; 97161; 97162; 97166; 99285; 99406; J7030; J7120; A4216; J2405

== ENCOUNTER 2019-11-20 13:26 | Emergency (ER) | payer MEDICARE, SELFPAY ==
[2019-11-06 12:42] VITALS: BMI 40.9
[2019-11-20 13:26] VITALS: BP 157/87; PULSE 107; RESP 16; TEMP 36.6; O2SAT 99; BMI 40.4
--- NOTE | 2019-11-20 13:41 | ED.DCSUM_ITS ---
History of Present Illness Chief Complaint: Lower Extremity Injury Informant: Patient Onset: Yesterday Context: Sudden Onset - while resting Timing: Intermittent, Waxes and wanes Quality of Pain: Aching Location: R calf Current Severity: Mild Maximum Severity: Moderate Worsened by: walking Relieved by: rest Associated Symptoms: Negative for: Parasthesia, Weakness, Loss of Funtion Narrative: Patient states she had spontaneous onset of right calf pain without swelling or redness or injury yesterday. Was feeling better last night but hurting again this morning. She went to express care and was immediately directed to the ER because of the possibility of a DVT which she has never had before. She is on no anticoagulants. She denies any pleuritic chest discomfort, shortness of breath, lightheadedness, near-syncope or syncope. She recently was hospitalized last month in this hospital for some type of intestinal problem, she states all that is better. She denies any long travel since being discharged from the hospital several weeks ago. - Past Medical History (1) Anxiety and depression Status: Acute (2) Small bowel ileus Status: Resolved (3) Diabetes mellitus type 2 in obese Status: Chronic (4) Essential (primary) hypertension Status: Chronic (5) HLD (hyperlipidemia) Status: Chronic (6) History of permanent cardiac pacemaker placement Status: Chronic (7) Intermittent complete heart block Status: Chronic (8) Nicotine dependence Status: Chronic Past Medical History - Allergies and Home Meds Allergies/Adverse Reactions: Allergies enalapril Adverse Reaction (Verified 11/20/19 13:28) COUGH lisinopril Adverse Reaction (Verified 11/20/19 13:28) COUGH Primary Care Physician: Lamberto Rogers MD [Primary Care Provider] - Surgical History: total hip arthroplasty - bilat, - - lumbar sacral trauma due to fall on a fiberglass boat, bilateral hip replacement. Smoking Status: Current every day smoker Drugs: None - Family History Maternal Family History: Family History (Last Reviewed 10/05/19 @ 13:42 by Syl Fischer) Father Colon cancer Mother Diabetes Heart disease Family History: Reports: - - diabeties,heart disease Paternal Family History: Family History (Last Reviewed 10/05/19 @ 13:42 by Syl Fischer) Father Colon cancer Mother Diabetes Heart disease Family History: Reports: - - colon cancer at age 55-58 Review of Systems General: Denies: Chills, Fever, Sweats Eyes: Denies: Visual changes - bilaterally, Diplopia ENT: Denies: Rhinorrhea, Sore throat Cardiovascular: Denies: Chest pain, Palpitations Respiratory: Denies: Dyspnea, Cough, Dyspnea on exertion Gastrointestinal: Denies: Abdominal pain, Nausea, Vomiting, Diarrhea, Melena, Hematochezia Genitourinary: Denies: Dysuria, Hematuria, Frequency Musculoskeletal: Reports: Extremity Pain. Denies: Swelling Skin: Denies: Rash, Wounds Neurological: Denies: Headache, Weakness, Numbness Physical Exam Vital Signs/Narrative: Vital Signs Temp Pulse Resp BP Pulse Ox 11/20/19 13:26 97.8 F 107 H 16 157/87 H 99 Inital Vital Signs reviewed: Yes - Extremity Exam Right Tib fib: - - mild tenderness right mid-calf. no cords. no skin abn or erythema/rash. no asymmetry. Negative for: Edema - mild tenderness right mid- calf. no cords. no skin abn or erythema/rash. no asymmetry. Right Ankle: Negative for: Limited ROM Left Ankle: Negative for: Limited ROM General: Well nourished, Well developed, Obese Head: Normocephalic, Atraumatic Eyes: Perrl, EOMI ENT: No Trauma, Moist Mucous Membranes Neck: Nontender, Full ROM Skin: Normal color, No rash, No Trauma Neurological: Alert, Oriented x3, Cranial nerves II-XII grossly intact, Normal Strength, Normal Sensation Psychological: Normal affect, Normal Mood Diagnostic/Tx/Re-eval Laboratory Tests 11/20/19 Range/Units 16:05 D-Dimer Quant (PE/DVT) 0.52 H* (0.27-0.49) FEU/ug/m - Medical Decision Making We attempted to order a duplex ultrasound of the right lower extremity, given the risk factor of her recent hospitalization, to rule out DVT. However, it apparently is not able to be obtained because of the time of the day and the techs are not available. Therefore, we obtained a d-dimer, it is slightly elevated but when corrected for age is within normal limits to rule out DVT and PE acutely. Patient was reassured. This is likely a muscle cramp especially the fact that it was coming and going. She was offered a dose of ibuprofen and advised to follow-up as needed, supportive care advised. ED Disposition - Plan for ED Patient: Disposition: Home or Assisted Living Diagnosis: Muscle cramp Instructions: Muscle Spasm Referrals: Lamberto Rogers MD [Primary Care Provider] - 1 Week if not improving
[2019-11-20 16:23] LABS: D-Dimer Quantitative (DVT/PE) 0.52 FEU/ug/m (0.27-0.49)
[2019-11-20] MEDS: Ibuprofen 600 MG Tablet PO (17:11)
== END 2019-11-20 17:22 | disposition home or self-care (01) ==
PROVIDERS: Emergency Provider Emergency Medicine; Family Provider Family Medicine; PCP Family Medicine
DX: R25.2 Cramp and spasm (principal); I10 Essential (primary) hypertension; E78.5 Hyperlipidemia, unspecified; F32.9 Major depressive disorder, single episode, unspecified; F41.9 Anxiety disorder, unspecified; E66.9 Obesity, unspecified; F17.200 Nicotine dependence, unspecified, uncomplicated; Z95.0 Presence of cardiac pacemaker; Z68.41 Body mass index [BMI] 40.0-44.9, adult
CPT/HCPCS: 36415; 85379; 99283

== ENCOUNTER 2019-11-22 17:52 | Emergency (ER) | payer MEDICARE, SELFPAY ==
[2019-11-22 11:30] VITALS: BMI 41.1
[2019-11-22 17:53] VITALS: BP 159/93; PULSE 110; RESP 18; TEMP 36.6; O2SAT 98; BMI 42.0
--- NOTE | 2019-11-22 17:59 | ED.RN ---
PT HAS ALL BELONGING WITH HER. ADMITS TO WALKING AROUND [place] PRIOR TO HAVING A TAXI BRING HER TO THE ER. WANTS ADMITTED AND PLACED IN A NH. STATES IS HOMELESS HAS USED ALL HER TIME AT [facility] [employer]
--- NOTE | 2019-11-22 19:10 | RAD_ITS ---
STUDY: X-RAY - RIGHT TIBIA AND FIBULA REASON FOR EXAM: Female, 59 years old. Pain TECHNIQUE: 2 view(s) of the tibia and fibula were obtained. COMPARISON: None. FINDINGS: There is no evidence of fracture or dislocation. There are no significant degenerative changes. There are no radiodense foreign bodies. RAD/Tibia & Fibula 2 Views IMPRESSION: No fracture or dislocation. Electronically Signed: Sonu Newsome, at 19:56 EST Tel , Service support ,
--- NOTE | 2019-11-22 19:12 | US_ITS ---
STUDY: VENOUS DOPPLER ULTRASOUND - RIGHT LOWER EXTREMITY REASON FOR EXAM: Female, 59 years old. RT LEG PAIN-LATERAL CALF X 4 DAYS TECHNIQUE: Ultrasound evaluation of the deep vein system to include laurent-scale imaging and compression was performed. Laurent-scale imaging and Doppler sonographic evaluation, including duplex spectral analysis and qualitative color flow sonography, was performed. COMPARISON: None. FINDINGS: Common Femoral Vein: Normal compression, spontaneity and augmentation. Normal color Doppler. Common Femoral Vein/Greater Saphenous Junction: Normal compression, spontaneity and augmentation. Normal color Doppler. Femoral Proximal: Normal compression, spontaneity and augmentation. Normal color Doppler. Femoral Middle: Normal compression, spontaneity and augmentation. Normal color Doppler. Femoral Distal: Normal compression, spontaneity and augmentation. Normal color Doppler. Popliteal Vein: Normal compression, spontaneity and augmentation. Normal color Doppler. Posterior Tibial Vein: Normal compression, spontaneity and augmentation. Normal color Doppler. Peroneal Vein: Normal compression, spontaneity and augmentation. Normal color Doppler. US/Venous Duplex Imag/Limited/Uni IMPRESSION: Normal venous Doppler ultrasound of the right lower extremity. Electronically Signed: Sonu Newsome, at 19:59 EST Tel , Service support ,
[2019-11-22] MEDS: Acetaminophen 500 MG Tablet 1000 MG PO (19:44)
--- NOTE | 2019-11-22 20:09 | ED.VISSUMM ---
- ER Visit Summary Date of Service: 11/22/19 Chief Complaint: Right leg pain History of Present Illness: The patient is a [address] Unruly Flanagan. Patient reports he has pain to her right leg that began 4 days ago. The sharp pain is 10 on 10 severity. Is worsened by standing. Is relieved by laying down and eating a sandwich. She denies any trauma. No fall, MVA, or change in activity. She denies any numbness or weakness. Physical Examination: Vitals: Stable. Afebrile. General: Well-nourished and well-developed. Head: Normocephalic atraumatic. Neck: Supple, no lymphadenopathy. No JVD. Nontender. Cardiovascular: Regular rate and rhythm. No murmurs. Respiratory: No respiratory distress. Clear to auscultation bilaterally. Abdominal: Soft, nontender, nondistended, normal bowel sounds. No guarding, rebound, or peritoneal signs. Back: Nontender. Extremities: Moderate tenderness palpation over the lateral portion of her mid right leg. There is no edema. No contusion or soft tissue swelling. She is neurovascular tach distal to this, no edema. Skin: Normal color, no rash. Neurologic: Alert and oriented ?3. Cranial nerves II through XII are intact. Normal strength and sensation. Psych: Normal affect. Test Results: Doppler was negative. Left tib-fib x-rays negative. Emergency Department Course and Treatment: Patient was treated with Tylenol. She is resting comfortably. She refused crutches. Treatment Plan: Patient be discharged prescription for naproxen. Instructed to follow-up with her primary care physician 1 week if not improving. Return to the emergency department for any worsening symptoms. Disposition: To home in improved and stable condition. Impression: 1. Right calf pain. This note was generated with [employer] dictation software. It may contain incorrect words, spelling, and punctuation that were not noted in review of the chart prior to signing ED Disposition - Plan for ED Patient: Disposition: Home or Assisted Living Instructions: MUSCLE STRAIN, Extremity Prescriptions: Naproxen [Naprosyn] 500 mg PO BID #14 tab Prescription Printed Referrals: Lamberto Rogers MD [Primary Care Provider] - 3-5 Days if not improving
--- NOTE | 2019-11-22 20:30 | CM.ED ---
Social Work Consult: Homeless Informant: Dr. Meza Met with patient in room. Introduced self as well as transition social worker role. Patient stating to want to be admitted to a assisted, I need someone to care for me. Patient stating to have stayed at [facility] 2 1/2 years ago after an emergency hip replacement. Patient stating to have been staying in a hotel room as patient is no longer aloud back to [facility]. Patient stating to have been staying at [facility] for the past 6 months. Patient stating that prior to the 6 month stay at [facility] patient was staying in [place] and renting a room off of a man. Patient stating to have needed to stay in [place] due to being sick and this is why patient has been staying at [facility]. Patient stating to not have transportation back to house were patient was staying. Inquiring if patient has any support. Patient stating that patient son is currently in [facility] in [facility] and to be working towards moving to [place]. Patient stating to have had an apartment in [place] but that lady gave it away. Patient stating to currently be on disability. Broached topic of mental health history for patient. Patient stating to be diagnosed with a Personality Disorder. Patient stating to be taking some med. Patient states to have a psychiatrist appointment set up for 2019 at the [facility]. Collaborating with Dr. Meza, patient does not meet criteria for medical admission and there is no apparent reason for patient to have a assisted stay. Telephone call to [facility], confirming that patient is unable to return. Patient was last seen at the [facility] on Nov.19. Met with patient in room again, patient now packing bags. Confirmed with patient that [facility] is not able to accept patient back. Patient stating where can I go to call a cab. Patient planning to go back to the hotel room. Directed patient to the triage desk where the is a phone. Diamante MILES, ISMA
[2019-11-22 20:38] VITALS: BP 138/79; PULSE 81; RESP 18; O2SAT 99
--- NOTE | 2019-11-22 20:39 | ED.RN ---
THIS NURSE REVIEWED D/C INSTRUCTIONS WITH PT. PT VERBALIZED UNDERSTANDING OF INSTRUCTIONS. PT DENIES FURTHER NEEDS OR QUESTIONS AT THIS TIME.
== END 2019-11-22 20:40 | disposition home or self-care (01) ==
PROVIDERS: Emergency Provider Emergency Medicine; Family Provider Family Medicine; PCP Family Medicine
DX: M79.661 Pain in right lower leg (principal); I10 Essential (primary) hypertension; Z72.0 Tobacco use
CPT/HCPCS: 73590; 93971; 99283

== ENCOUNTER 2020-04-02 14:24 | Inpatient (IN) | payer MEDICARE, SELFPAY ==
[2020-04-02 14:26] VITALS: BP 165/78; PULSE 106; RESP 16; TEMP 36.7; O2SAT 95; BMI 41.1
--- NOTE | 2020-04-02 15:26 | ED.DCSUM_ITS ---
- ER Visit Summary Date of Service: 04/02/20 Chief Complaint: Abscess History of Present Illness: The patient is a 59 F with abscess to right inner thigh. Patient states this started approximately 2 weeks ago. She had a telemetry visit with her primary care physician on March 23 and was started on Zithromax at that time. She states her symptoms did not improve and it continues to enlarge. She has had no drainage at home. No fever. She has history of similar infections in the past. She has a history of diabetes. She denies other complaints. Physical Examination: Vitals are stable. Patient is afebrile. Alert no acute distress. HEENT exam is unremarkable. Neck is supple. Lungs are clear and equal bilaterally. Heart is regular tachycardia Abdomen is soft nontender nondistended. Extremities 7 x 4 cm fluctuant abscess right inner thigh with surrounding erythema Skin is warm and dry. No focal neurologic deficit. Remainder of exam is unremarkable. Emergency Department Course and Treatment: Patient was given clindamycin IV. I& D was performed. Anesthetized with lidocaine, incised with 11 blade. Moderate amount of pus was drained. Irrigated with saline. Probed to break up loculations. Patient tolerated this well. CBC shows white count of 12.9. Chemistries show glucose 161. Wound culture was sent. Due to significant surrounding cellulitis discussed with hospitalist for observation. Disposition: Observation Impression: Right thigh abscess, I&D, cellulitis This note was generated with [employer] dictation software. It may contain incorrect words, spelling, and punctuation that were not noted in review of the chart prior to signing ED Disposition - Plan for ED Patient: Referrals: Lamberto Rogers MD [Primary Care Provider] -
[2020-04-02] MEDS: 0.9% Normal Saline 1,000 ML 999 ML IV (15:33)
[2020-04-02 15:44] LABS: Absolute Lymphocyte Count 2.56 X10^3/uL (0.83-4.51); Absolute Neutrophil Count 8.7 X10^3/uL (2.0-7.7); Basophil# 0.07 X10^3/uL; Basophil% 0.5 % (0-1); Eosinophil# 0.36 X10^3/uL; Eosinophils% 2.8 % (0-5); Hematocrit 40.5 % (37-47); Lymphocyte # 2.56 X10^3/ul (4.0); Lymphocyte % 19.8 % (19-41); Mean Corp Hgb Conc 32.1 g/dL (32-36); Mean Corpuscular Hgb 30.6 pg (27.0-32.0); Mean Corpuscular Volume 95.3 fL (81-99); Mean Platelet Vol. 10.1 fl (6.2-12.0); Monocyte# 1.15 X10^3/uL; Monocyte% 8.9 % (0-10); NRBC Flagged by Analyzer 0 % (0-5); Neutrophil # 8.72 X10^3/uL (2.7-7.7); Neutrophil % 67.5 % (47-70); Platelet Count 248 K/mm3 (150-450); RBC Distribution Width CV 13.8 % (11.6-14.6); RBC Distribution Width SD 48.5 fl (35.1-43.9); Red Blood Count 4.25 M/mm3 (4.2-5.4); White Blood Count 12.9 K/mm3 (4.4-11.0)
[2020-04-02 15:59] LABS: Anion Gap 5 (5-15); BUN 14 mg/dL (7-18); BUN/Creat Ratio 15.9 RATIO (10-20); Calcium,Total 9.6 mg/dL (8.5-10.1); Chloride 110 mmol/L (98-107); Creatinine, Serum 0.88 mg/dL (0.55-1.02); EST Glomerular Filtration Rate 70 mL/min (>60); Est Glom Filt Rate - Afr Amer 85 mL/min (>60); Estimated Creatinine Clearance 59.44 ml/min; Glucose 161 mg/dL (74-106); Potassium 3.8 mmol/L (3.5-5.1); Sodium Level 141 mmol/L (136-145)
--- NOTE | 2020-04-02 17:18 | HP.PCM_ITS ---
Problem List (1) Diabetes mellitus type 2 in obese Status: Chronic (2) Anxiety and depression Status: Chronic (3) Small bowel ileus Status: Resolved (4) Intermittent complete heart block Status: Chronic Comment: PPM placement on 08/08/2019; (5) History of permanent cardiac pacemaker placement Status: Chronic (6) Essential (primary) hypertension Status: Chronic (7) HLD (hyperlipidemia) Status: Chronic Qualifiers: (8) Nicotine dependence Status: Chronic (9) Abscess of right thigh Status: Acute History of Present Illness Date of Admission: 04/02/20 Chief Complaint: Swelling upper right thigh The patient is a 59 year old F with history of diabetes mellitus type 2 for more than 10 years came to ER for swelling in right upper thigh for 3 weeks. Patient denies fever and chills. Initially she felt pain and swelling and went to ER after 1 week and was given Zithromax. It continued to enlarge therefore came to ER. In ED, it was found about six 7 x 4 cm fluctuant abscess with surrounding erythema and was drained. As per ER physician blood of purulent material was drained out. Heart rate 106 pulmonary in ER. Patient was given IV clindamycin and further admitted [] Past Medical History Past Medical History (Chronic Problems): Chronic Problems (Last Reviewed 10/05/19 @ 13:42 by Syl Fischer) Diabetes mellitus type 2 in obese (Chronic) Anxiety and depression (Chronic) Intermittent complete heart block (Chronic) PPM placement on 08/08/2019; History of permanent cardiac pacemaker placement (Chronic 08/08/19) Essential (primary) hypertension (Chronic) HLD (hyperlipidemia) (Chronic) Nicotine dependence (Chronic) Medical History: Medical History (Last Reviewed 10/05/19 @ 13:42 by Syl Fischer) Intermittent complete heart block (Chronic) I44.2 PPM placement on 08/08/2019; Essential (primary) hypertension (Chronic) I10 HLD (hyperlipidemia) (Chronic) E78.5 Nicotine dependence (Chronic) F17.200 Morbid obesity E66.01 Obstructive sleep apnea G47.33 Primary osteoarthritis of left hip M16.12 Spinal stenosis M48.00 Type 2 diabetes mellitus E11.9 Allergies enalapril Adverse Reaction (Verified 04/02/20 14:25) COUGH lisinopril Adverse Reaction (Verified 04/02/20 14:25) COUGH Home Medications: Ambulatory Orders Medication Instructions Recorded Amitriptyline HCl [Elavil] 10 mg PO QHS 12/12/16 Amlodipine [Norvasc] 10 mg PO DAILY 02/06/17 cycloBENZAPRine HCl [Flexeril] 10 mg PO TID PRN PRN 02/06/17 Atorvastatin Calcium [Lipitor] 10 mg PO QHS 06/12/17 Albuterol Inhaler [Ventolin Hfa] 1 - 2 puff INHALATION Q4H PRN PRN 08/25/19 #1 inhaler benzonatate 100 mg capsule 100 mg PO BID PRN 11/22/19 Acetaminophen [Tylenol Arthritis] 1,300 mg PO DAILY PRN PRN 04/02/20 Surgical History: Surgical History (Last Reviewed 10/05/19 @ 13:42 by Syl Fischer) History of permanent cardiac pacemaker placement (Chronic) Onset Date: 9 Z95.0 H/O bilateral hip replacements Z96.643 Surgical History: total hip arthroplasty - bilat, - - lumbar sacral trauma due to fall on a fiberglass boat, bilateral hip replacement. 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 history Smoking Status: Current every day smoker Tobacco Use: Cigarettes - *Family History Maternal Family History: Family History (Last Reviewed 10/05/19 @ 13:42 by Syl Fischer) Father Colon cancer Mother Diabetes Heart disease History Items: - - diabeties,heart disease Paternal Family History: Family History (Last Reviewed 10/05/19 @ 13:42 by Syl Fischer) Father Colon cancer Mother Diabetes Heart disease History Items: - - colon cancer at age 55-58 Review of Systems Constitutional: Denies: Chills, Fever HEENT: Denies: Head Aches, Sinus Congestion, Sinus Drainage Cardiovascular: Denies: Chest Pain, Palpitations Respiratory: Denies: Cough, Shortness of breath at rest, Sputum production Gastrointestinal: Denies: Abdominal Pain, Nausea, Vomiting Genitourinary: Denies: Dysuria, Frequency Musculoskeletal: Denies: Joint Pain, Joint Tenderness Skin: Reports: Skin Changes, - - Right upper thigh swelling. Denies: Rash, Wo unds Neurological: Denies: Numbness, Tingling, Focal weakness Psychiatric: Denies: Anxiety, Depression, Homicidal Ideations, Suicidal Ideations Hematologic/ Lymphatic: Denies: Easy Bruising, Easy Bleeding VTE Information - Inpt Only VTE Present on Admission: No VTE Mechan Device Prophylaxis: None VTE Pharm Prophylaxis ordered?: Yes Patient Problems: Active and Suspected Problems (Last Reviewed 10/05/19 @ 13:42 by Syl Fischer) Abscess of right thigh (Acute) - Physical Exam Vitals/I&O's: Vital Signs Temp Pulse Resp BP Pulse Ox 98.1 F 106 H 16 165/78 H 95 04/02/20 14:26 04/02/20 14:26 04/02/20 14:26 04/02/20 14:26 04/02/20 14:26 Weight: 240 lb Body Mass Index (BMI) 41.1 Finger Stick Blood Glucose 161 Intake and Output for Last 24 Hours 03/31/20 04/01/20 04/02/20 23:59 23:59 23:59 Intake Total 1054 / 1054 Balance 1054 / 1054 General: Alert, Oriented x3, Cooperative HEENT: Atraumatic, PERRLA, EOMI, Normocephalic Oral: No Gingival or Mucosal Lesions/ Ulcerations, Dry Mucosa Neck: Supple, No JVD, Negative Carotid Bruits Lungs: Clear to auscultation, No rhonchi, No wheeze, No rales, Diminished Cardiovascular: Regular rate, Regular Rhythm, Normal S1, Normal S2, No murmurs, - - Patient has a pacemaker on left subclavicular region Abdomen: Bowel Sounds Present, Soft, Non Tender, Non-Distended Extremities: No edema, Capillary Refill Less than 3 Seconds Skin: No rashes, No breakdown Musculoskeletal: No Tenderness to Palpation of Joints or Extremities, Arthritic Changes Neurological: Cranial nerves II-XII grossly intact, Deep Tendon Reflexes 2+/4 and Symmetrical, Neuro grossly intact Psych/Mental Status: Normal Affect, Appropriate Laboratory Results 04/02/20 15:25: WBC 12.9 H, RBC 4.25, Hgb 13.0, Hct 40.5, MCV 95.3, MCH 30.6, MCHC 32.1, RDW Std Deviation 48.5 H, RDW Coeff of Mark 13.8, Plt Count 248, MPV 10.1, Immature Gran % (Auto) 0.500, Neut % (Auto) 67.5, Lymph % (Auto) 19.8, [place] % (Auto) 8.9, Eos % (Auto) 2.8, Baso % (Auto) 0.5, Absolute Neuts (auto) 8.7 H, Absolute Lymphs (auto) 2.56, Nucleated RBC % 0 04/02/20 15:25: Sodium 141, Potassium 3.8, Chloride 110 H, Carbon Dioxide 26.0, Anion Gap 5, BUN 14, Creatinine 0.88, Estim Creat Clear Calc 59.44, Est GFR (MDRD) Af Amer 85, Est GFR (MDRD) Non-Af 70, BUN/Creatinine Ratio 15.9, Glucose 161 H, Calcium 9.6 Assessment/Plan All Active Problems (Last Reviewed 10/05/19 @ 13:42 by Syl Fischer) Abscess of right thigh (Acute) Small bowel ileus (Resolved) Dizziness (Resolved) UTI (urinary tract infection) (Resolved) The patient is a 59 year old F with history of diabetes mellitus type 2 for more than 10 years came to ER for swelling in right upper thigh for 3 weeks. Patient denies fever and chills. Patient was given IV clindamycin and further admitted 1. Right upper anterior medial thigh abscess: Patient is being admitted on MedSurg. Patient had incision and drainage in ED. Started on IV Zosyn. Clindamycin continued for toxin inhibitory effect. Wound culture including MRSA ordered. Patient has mild leukocytosis. CRP and labs for tomorrow ordered. Dr. Olmedo called and consulted. 2. Diabetes mellitus type 2: Patient is not on insulin or oral hypoglycemic agent. In the past she was on byetta. Glucose 161. A1c tomorrow a.m. Accu-Chek before meals and at bedtime and cover with Humalog sliding scale. 3. Arrhythmia status post permanent pacemaker: She has history of intermittent complete heart block status post pacemaker placement in July 2019. 4. Other chronic comorbidities include hypertension, dyslipidemia, anxiety and depression: Stable. Home medications reconciliation done. DVT prophylaxis: Lovenox 40 minutes subcu daily [] Laboratory Results 04/02/20 15:25: WBC 12.9 H, RBC 4.25, Hgb 13.0, Hct 40.5, MCV 95.3, MCH 30.6, MCHC 32.1, RDW Std Deviation 48.5 H, RDW Coeff of Mark 13.8, Plt Count 248, MPV 10.1, Immature Gran % (Auto) 0.500, Neut % (Auto) 67.5, Lymph % (Auto) 19.8, [place] % (Auto) 8.9, Eos % (Auto) 2.8, Baso % (Auto) 0.5, Absolute Neuts (auto) 8.7 H, Absolute Lymphs (auto) 2.56, Nucleated RBC % 0 04/02/20 15:25: Sodium 141, Potassium 3.8, Chloride 110 H, Carbon Dioxide 26.0, Anion Gap 5, BUN 14, Creatinine 0.88, Estim Creat Clear Calc 59.44, Est GFR (MDRD) Af Amer 85, Est GFR (MDRD) Non-Af 70, BUN/Creatinine Ratio 15.9, Glucose 161 H, Calcium 9.6 Inpatient E&M: 44752 Init Hosp L3
[2020-04-02 17:24] VITALS: BP 149/77; PULSE 96; RESP 18; TEMP 36.7; O2SAT 97
[2020-04-02 17:27] VITALS: BP 149/77; PULSE 96; RESP 18; TEMP 36.7; O2SAT 97
[2020-04-02 18:17] VITALS: BMI 41.1
[2020-04-02 18:21] VITALS: BMI 41.2
[2020-04-02] MEDS: Enoxaparin 40 MG/0.4 ML Syringe SC (18:28)
[2020-04-02] MEDS: 0.9% Normal Saline 1,000 ML 100 ML IV (18:28)
[2020-04-02 18:31] VITALS: BP 137/112; PULSE 99; RESP 18; TEMP 36.7; O2SAT 97
[2020-04-02 20:06] VITALS: BP 156/88; PULSE 97; RESP 18; TEMP 36.8; O2SAT 96
[2020-04-02 20:12] LABS: M R Staph aureus DNA By PCR Negative (Negative); Probe Check PASS; Specimen Processing Control PASS
[2020-04-02 20:40] VITALS: O2SAT 95
--- NOTE | 2020-04-02 20:56 | PCM.CONS.GEN ---
Reason for Consult Date of Consultation: 04/02/20 Reason for Consultation: Diabetic abscess right upper medial thigh. REFERRING PHYSICIAN: Dr. Hernandez. BRASS BUFFER: Dr. Olmedo. History of Present Illness: The patient is a 59 year old F with history of diabetes mellitus type 2 for more than 10 years came to ER for swelling in right upper thigh for 3 weeks. Patient denies fever and chills. Initially she felt pain and swelling and was started on Zithromax. It continued to enlarge therefore came to Patient was given IV clindamycin and further admitted It continued to enlarge therefore came to ER. In ED, a fluctuant abscess was seen and an I&D was performed. She was given Clindamycin in the ED. She was admitted and was placed on Zosyn. Her WBC was 12.9. I was asked to evaluate this patient for surgical options for treatment. Past Medical History Past Medical History (Chronic Problems): Chronic Problems (Last Reviewed 10/05/19 @ 13:42 by Syl Fischer) Diabetes mellitus type 2 in obese (Chronic) Anxiety and depression (Chronic) Intermittent complete heart block (Chronic) PPM placement on 08/08/2019; History of permanent cardiac pacemaker placement (Chronic 08/08/19) Essential (primary) hypertension (Chronic) HLD (hyperlipidemia) (Chronic) Nicotine dependence (Chronic) Medical History: Medical History (Last Reviewed 10/05/19 @ 13:42 by Syl Fischer) Intermittent complete heart block (Chronic) I44.2 PPM placement on 08/08/2019; Essential (primary) hypertension (Chronic) I10 HLD (hyperlipidemia) (Chronic) E78.5 Nicotine dependence (Chronic) F17.200 Morbid obesity E66.01 Obstructive sleep apnea G47.33 Primary osteoarthritis of left hip M16.12 Spinal stenosis M48.00 Type 2 diabetes mellitus E11.9 Allergies enalapril Adverse Reaction (Verified 04/02/20 14:25) COUGH lisinopril Adverse Reaction (Verified 04/02/20 14:25) COUGH Home Medications: Ambulatory Orders Medication Instructions Recorded Amitriptyline HCl [Elavil] 10 mg PO QHS 12/12/16 Amlodipine [Norvasc] 10 mg PO DAILY 02/06/17 cycloBENZAPRine HCl [Flexeril] 10 mg PO TID PRN PRN 02/06/17 Atorvastatin Calcium [Lipitor] 10 mg PO QHS 07/28/17 Albuterol Inhaler [Ventolin Hfa] 1 - 2 puff INHALATION Q4H PRN PRN 08/25/19 #1 inhaler benzonatate 100 mg capsule 100 mg PO BID PRN 11/22/19 Acetaminophen [Tylenol Arthritis] 1,300 mg PO DAILY PRN PRN 04/02/20 Surgical History: Surgical History (Last Reviewed 10/05/19 @ 13:42 by Syl Fischer) History of permanent cardiac pacemaker placement (Chronic) Onset Date: 08/08/19 Z95.0 H/O bilateral hip replacements Z96.643 Surgical History: total hip arthroplasty - bilat, - - lumbar sacral trauma due to fall on a fiberglass boat, bilateral hip replacement. 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 HEENT: Denies: Head Aches, Sinus Congestion, Sinus Drainage. Cardiovascular: Denies: Chest Pain, Palpitations. Respiratory: Denies: Cough, Shortness of breath at rest, Sputum production. Gastrointestinal: Denies: Abdominal Pain, Nausea, Vomiting. Genitourinary: Denies: Dysuria, Frequency. Musculoskeletal: Denies: Joint Pain, Joint Tenderness. Skin: Reports: Skin Changes, - - Right upper thigh swelling. Denies: Rash, Wounds. Neurological: Denies: Numbness, Tingling, Focal weakness. Psychiatric: Denies: Anxiety, Depression, Homicidal Ideations, Suicidal Ideations. Hematologic/ Lymphatic: Denies: Easy Bruising, Easy Bleeding Patient Problems: Active and Suspected Problems (Last Reviewed 10/05/19 @ 13:42 by Syl Fischer) Abscess of right thigh (Acute) - Physical Exam Vitals/I&O's: General: Alert, Oriented x3, Cooperative HEENT: PERRLA, EOMI. Oral: Dry Mucosa Neck: Supple, Nontender. No cervical adenopathy. Lungs: Clear to auscultation. Cardiovascular: Regular rate, Regular Rhythm - Patient has a pacemaker on left subclavicular region Abdomen: Soft, Nondistended. Extremities: No edema, Capillary Refill Less than 3 Seconds. In the right upper medial thigh is an area of redness and tenderness and firmness. Some fluctuance. It was recently drained with I&D in the ED. Measures 13 x 5 cm. Skin: No rashes, No breakdown Neurological: Cranial nerves II-XII grossly intact. Psych/Mental Status: Normal Affect, Appropriate Vital Signs Temp Pulse Resp BP Pulse Ox 98.2 F 97 18 156/88 H 96 04/02/20 20:06 04/02/20 20:06 04/02/20 20:06 04/02/20 20:06 04/02/20 20:06 Oxygen Delivery Method Room Air Weight: 240 lb Body Mass Index (BMI) 41.1 Finger Stick Blood Glucose 161 Intake and Output for Last 24 Hours 03/31/20 04/01/20 04/02/20 23:59 23:59 23:59 Intake Total 1209 / 1209 Balance 1209 / 1209 Laboratory Results 04/02/20 15:25: WBC 12.9 H, RBC 4.25, Hgb 13.0, Hct 40.5, MCV 95.3, MCH 30.6, MCHC 32.1, RDW Std Deviation 48.5 H, RDW Coeff of Mark 13.8, Plt Count 248, MPV 10.1, Immature Gran % (Auto) 0.500, Neut % (Auto) 67.5, Lymph % (Auto) 19.8, [place] % (Auto) 8.9, Eos % (Auto) 2.8, Baso % (Auto) 0.5, Absolute Neuts (auto) 8.7 H, Absolute Lymphs (auto) 2.56, Nucleated RBC % 0 04/02/20 15:25: Sodium 141, Potassium 3.8, Chloride 110 H, Carbon Dioxide 26.0, Anion Gap 5, BUN 14, Creatinine 0.88, Estim Creat Clear Calc 59.44, Est GFR (MDRD) Af Amer 85, Est GFR (MDRD) Non-Af 70, BUN/Creatinine Ratio 15.9, Glucose 161 H, Calcium 9.6 04/02/20 15:25: C-React Prot Ext Range 28.60 H 04/02/20 18:30: MRSA (PCR) Negative 04/02/20 18:30: S.aureus Protein A PCR Pending, MRSA (PCR) Pending Current Medications Acetaminophen (Tylenol) 650 mg PO Q6H PRN PRN PRN Reason: Pain Score 1-10/Temp > 100.7 F Al Hydroxide/Mg Hydroxide (Mylanta Ii) 30 ml PO Q6H PRN PRN PRN Reason: Gastric Burning Albuterol Sulfate (Ventolin Aerosols) 2.5 mg INHALATION Q4H PRN PRN PRN Reason: SOB &/OR WHEEZING Amitriptyline HCl (Elavil) 10 mg PO QHS [facility] Amlodipine Besylate (Norvasc) 10 mg PO DAILY [facility] Atorvastatin Calcium (Lipitor) 10 mg PO QHS [facility] Benzonatate (Tessalon Perle) 100 mg PO BID PRN PRN PRN Reason: COUGH Clindamycin HCl (Cleocin) 300 mg PO TID [facility] Stop: 04/03/20 14:01 Cyclobenzaprine HCl (Flexeril) 10 mg PO TID PRN PRN PRN Reason: muscle spasms Dextrose (D50w Syringe) 0 gm IV X1 PRN; Protocol PRN Reason: Hypoglycemia Enoxaparin Sodium (Lovenox) 40 mg SC DAILY [facility] Last Admin: 04/02/20 18:28 Dose: 40 mg Documented by: Glucagon () 1 mg IM .X1 PRN PRN Reason: Hypoglycemia Sodium Chloride () 1,000 mls @ 100 mls/hr IV .Q10H [facility] Stop: 04/03/20 03:42 Last Infusion: 04/02/20 20:01 Dose: 0 mls/hr Documented by: Piperacillin Sod/Tazobactam (Sod 3.375 gm/ Sodium Chloride) 50 mls @ 12.5 mls/hr IV Q8 [facility] Last Admin: 04/02/20 20:04 Dose: 12.5 mls/hr Documented by: Insulin Human Lispro (Humalog Kwikpen (Bkc)) 0 unit SC ACHS [facility]; Protocol Melatonin (Melatonin) 3 mg PO QHS PRN PRN PRN Reason: INSOMNIA Morphine Sulfate () 2 mg IV Q3H PRN PRN PRN Reason: Pain Score 6-10/10 Oxycodone HCl (Oxyir) 5 mg PO Q4H PRN PRN PRN Reason: Pain Score 4-5/10 Prochlorperazine Edisylate (Compazine Iv) 5 mg IV Q4H PRN PRN PRN Reason: Breakthrough nausea/vomiting Promethazine HCl (Phenergan) 12.5 mg IV Q6H PRN PRN PRN Reason: Breakthrough nausea/vomiting Sodium Chloride () 10 - 40 ml IV UD PRN PRN Reason: SALINE FLUSH Assessment/Plan All Active Problems (Last Reviewed 10/05/19 @ 13:42 by Syl Fischer) Abscess of right thigh (Acute) Small bowel ileus (Resolved) Dizziness (Resolved) UTI (urinary tract infection) (Resolved) 1. Diabetic abscess right upper medial thigh. 2. Smoker. Continue IV antibiotics with Zosyn. Was given Clindamycin in the ED. Recommend surgical preparation of her right upper medial thigh with incision and drainage and excisional debridement. I anticipate involvement down to the the underlying fascia. Will send tissue to Pathology for analysis to rule out carcinoma and to Microbiology for culture. A positive culture will necessitate antibiotic therapy. Will begin wound care with the VAC. After discharge, will followup at [facility]. If there is a plateau in the healing process, can proceed with delayed closure with skin grafting. If skin grafting is needed in the future, her HgbA1c needs to be less than 8. Anticipate increased metabolic demands from the infection and from the surgery. Will check a Prealbumin and encourage nutritional supplementation with protein to help the healing process. Will proceed with surgery tomorrow under general anesthesia. Patient was informed of the risks and complications of the procedure including alternatives to surgery. These were discussed with the patient personally. Patient voices understanding and wishes to proceed. Encouraged patient to stop smoking as it may have deleterious effects on wound healing. Essential Procedure Criteria Procedure Essential: Yes Criteria Note: On 01/31/2020 the [place] Department of Health ([facility]) Public Order signed by [facility] Director Nara Norris M.D., regarding the Management of Non-Essential Surgeries and Procedures for the purpose of preserving Personal Protective Equipment (PPE) and critical hospital capacity and resources within [place] went into effect as of 02/01/2020 at 5:00PM. According to the [facility] Public Order: This action will remain in full force and effect until the State of Emergency declared by the Governor no longer exists or the Director of the [facility] rescinds or modifies this Order.. This [facility] order stated all non-essential or elective surgeries and procedures that utilize PPE should be delayed unless there is undue risk to the current or future health of a patient. After reviewing the aforementioned [facility] Public Order and the patients clinical case, I have determined that the scheduled procedure meets the criteria to go forward. Risk to Patient if Procedure Delayed: Risk of rapidly worsening to severe symptoms if delayed - Patient has a worsening diabetic abscess right upper medial thigh. Inpatient E&M: 09783 Init Hosp L2 - ICD-10 - L02.415, E11.9, F17.200
[2020-04-02 21:11] LABS: M R Staph aureus DNA By PCR Negative (Negative); Probe Check PASS; Staph aureus DNA By PCR NEGATIVE (Negative)
[2020-04-02] MEDS: Amitriptyline 10 MG Tablet PO (21:17)
[2020-04-02] MEDS: Clindamycin HCl 150 MG Capsule 300 MG PO (21:17)
[2020-04-02] MEDS: Atorvastatin Calcium 10 MG Tablet PO (21:17)
[2020-04-02] MEDS: Insulin Lispro 100 UNIT/ML INSULN.PEN SC (22:00)
[2020-04-02 22:01] LABS: Bedside Glucose 194 mg/dL (70-110)
[2020-04-03] VITALS (11 sets, daily range): BP systolic 129–185; BP diastolic 59–88; PULSE 84–95; RESP 16–18; TEMP 36.6–37; O2SAT 93–100; BMI 41.1
[2020-04-03] MEDS: Clindamycin HCl 150 MG Capsule 300 MG PO ×2 (05:27→15:16)
--- NOTE | 2020-04-03 06:00 | EKG12_ITS ---
Test Reason : PRE-OP Blood Pressure : / mmHG Vent. Rate : 081 BPM Atrial Rate : 081 BPM P-R Int : 148 ms QRS Dur : 088 ms QT Int : 368 ms P-R-T Axes : 065 036 083 degrees QTc Int : 427 ms Sinus rhythm with marked sinus arrhythmia Otherwise normal ECG Confirmed by JADEN KELLER, EUGENIE ([id number]), editor continuity and script IRVING JONES ([id number]) on 04/05/2020 4:12:36 PM Referred By: ELENITA Confirmed By:EUGENIE STANLEY MD
[2020-04-03] MEDS: Insulin Lispro 100 UNIT/ML INSULN.PEN SC ×2 (06:30→21:46)
[2020-04-03 06:36] LABS: Bedside Glucose 165 mg/dL (70-110)
[2020-04-03 08:13] LABS: Absolute Lymphocyte Count 2.63 X10^3/uL (0.83-4.51); Absolute Neutrophil Count 7.5 X10^3/uL (2.0-7.7); Basophil# 0.06 X10^3/uL; Basophil% 0.5 % (0-1); Eosinophil# 0.39 X10^3/uL; Eosinophils% 3.3 % (0-5); Hematocrit 40.8 % (37-47); Lymphocyte # 2.63 X10^3/ul (4.0); Lymphocyte % 22.2 % (19-41); Mean Corp Hgb Conc 31.9 g/dL (32-36); Mean Corpuscular Hgb 30.4 pg (27.0-32.0); Mean Corpuscular Volume 95.3 fL (81-99); Mean Platelet Vol. 10.3 fl (6.2-12.0); Monocyte# 1.17 X10^3/uL; Monocyte% 9.9 % (0-10); NRBC Flagged by Analyzer 0 % (0-5); Neutrophil # 7.53 X10^3/uL (2.7-7.7); Neutrophil % 63.7 % (47-70); Platelet Count 233 K/mm3 (150-450); RBC Distribution Width CV 13.9 % (11.6-14.6); RBC Distribution Width SD 48.8 fl (35.1-43.9); Red Blood Count 4.28 M/mm3 (4.2-5.4); White Blood Count 11.8 K/mm3 (4.4-11.0)
[2020-04-03 08:48] LABS: Anion Gap 9 (5-15); BUN 12 mg/dL (7-18); BUN/Creat Ratio 13.9 RATIO (10-20); Calcium,Total 9.1 mg/dL (8.5-10.1); Chloride 105 mmol/L (98-107); Creatinine, Serum 0.87 mg/dL (0.55-1.02); EST Glomerular Filtration Rate 71 mL/min (>60); Est Glom Filt Rate - Afr Amer 86 mL/min (>60); Estimated Creatinine Clearance 60.12 ml/min; Glucose 158 mg/dL (74-106); Potassium 3.7 mmol/L (3.5-5.1); Sodium Level 138 mmol/L (136-145); Thyroid Stim Hormone (TSH) 2.43 uIU/mL (0.358-3.74)
[2020-04-03 09:03] LABS: Hemoglobin A1c 7.3 % (3.8-5.6)
--- NOTE | 2020-04-03 09:09 | NURSING ---
Was consulted on patient for right thigh abscess. pt is off the floor at this time for surgery per Dr Olmedo. pt will most likely need a wound VAC tomorrow. will follow.
[2020-04-03 09:21] LABS: Bedside Glucose 138 mg/dL (70-110)
--- NOTE | 2020-04-03 09:50 | ABS_PTH ---
PATIENT: ABE HICKS LOC: [facility]3 U#:[id number] AGE/SX: 59/F ROOM: MS318 RE04/03/[address]: Dr. Saji Hernandez MD : 1960 BED: 1 DIS: 04/05/2020 SPEC #: [id number] RECD: 04/03/20 15:25 STATUS: ELEAZAR REAndria #: [id number] CARSON: 04/03/20 09:[address]: Wayne Olmedo DEPT: SURGICAL PATHOLOGY RECD BY: [address] ENTERED: 04/04/20 09:13 SP TYPE: Abscess OTHR DR: MD Dr. Saji Diop MD Tissues: Right thigh Procedures: Surgery Specimen Level IV HEADER OPERATION: Incision and drainage diabetic abscess thigh PRE-OP DIAGNOSIS: Right thigh diabetic abscess TISSUE SUBMITTED: Abscess right thigh MICROSCOPIC DIAGNOSIS Skin and soft tissue of right thigh, excision: Acute and chronic inflammation, fat necrosis and granulation, consistent with abscess formation. See comment. AM:arabella 04/05/20 COMMENT Rare strips of squamous mucosa are present within the abscess suggestive of the possibility of a preexisting epidermal inclusion cyst. Clinical correlation is suggested. MICROSCOPIC DESCRIPTION Slides are reviewed. GROSS DESCRIPTION Received in fixative is one container labeled with the patient's name and designated right thigh abscess. The specimen consists of a discoid fragment of pink-leo skin measuring 8.5 x 6.7 cm and containing a centrally located ulcerated region measuring 2 x 1.3 x 0.9 cm. Attached to this is a fat pad that measures 3.5 cm in thickness. Present free in the container is a friable fragment of skin measuring 1.5 x 1.5 cm. Serial sections do not reveal mass lesions. Tassel Making Machine Operator sections from both fragments are submitted in one cassette. / AM:arabella 04/04/20 TC:2 CPT: 34836
--- NOTE | 2020-04-03 10:38 | PCM.PN.HOSP ---
Patient Problems: Active and Suspected Problems (Last Reviewed 10/05/19 @ 13:42 by Syl Fischer) Abscess of right thigh (Acute) Reason for Visit: Large right upper thigh abscess, diabetes mellitus 2 Objective: No fever since admission. Hemodynamically blood pressure is controlled. Patient had incision and drainage of right upper thigh large abscess about 65 cm? Vitals/I&O's: Vital Signs Temp Pulse Resp BP Pulse Ox 97.8 F 88 18 129/72 H 98 04/03/20 08:08 04/03/20 08:08 04/03/20 08:08 04/03/20 08:08 04/03/20 08:08 Oxygen Delivery Method Room Air Weight: 240 lb Body Mass Index (BMI) 41.1 Finger Stick Blood Glucose 161 Intake and Output for Last 24 Hours 04/01/20 04/02/20 04/03/20 23:59 23:59 23:59 Intake Total 1209 / 1509 1135 / 1135 Balance 1209 / 1509 1135 / 1135 General: Cooperative, Lethargic - Anesthetic effect. Patient had general anesthesia HEENT: Atraumatic, PERRLA, EOMI, Normocephalic Oral: No Gingival or Mucosal Lesions/ Ulcerations Neck: Supple, No JVD, Negative Carotid Bruits Lungs: Clear to auscultation, No rhonchi, No wheeze, No rales, Diminished Cardiovascular: Regular rate, Regular Rhythm, Normal S1, Normal S2, No murmurs Abdomen: Bowel Sounds Present, Soft, Non Tender, Non-Distended Extremities: No edema, Capillary Refill Less than 3 Seconds Skin: Ulcer/ Wound - Right thigh incision and drainage. Zack wrap bandage on. Musculoskeletal: No Tenderness to Palpation of Joints or Extremities Neurological: Cranial nerves II-XII grossly intact, Deep Tendon Reflexes 2+/4 and Symmetrical, Neuro grossly intact Psych/Mental Status: Normal Affect, Appropriate Laboratory Results 04/02/20 15:25: WBC 12.9 H, RBC 4.25, Hgb 13.0, Hct 40.5, MCV 95.3, MCH 30.6, MCHC 32.1, RDW Std Deviation 48.5 H, RDW Coeff of Mark 13.8, Plt Count 248, MPV 10.1, Immature Gran % (Auto) 0.500, Neut % (Auto) 67.5, Lymph % (Auto) 19.8, Kings % (Auto) 8.9, Eos % (Auto) 2.8, Baso % (Auto) 0.5, Absolute Neuts (auto) 8.7 H, Absolute Lymphs (auto) 2.56, Nucleated RBC % 0 04/02/20 15:25: Sodium 141, Potassium 3.8, Chloride 110 H, Carbon Dioxide 26.0, Anion Gap 5, BUN 14, Creatinine 0.88, Estim Creat Clear Calc 59.44, Est GFR (MDRD) Af Amer 85, Est GFR (MDRD) Non-Af 70, BUN/Creatinine Ratio 15.9, Glucose 161 H, Calcium 9.6 04/02/20 15:25: C-React Prot Ext Range 28.60 H 04/02/20 18:30: MRSA (PCR) Negative 04/02/20 18:30: S.aureus Protein A PCR NEGATIVE, MRSA (PCR) Negative 04/02/20 21:56: POC Glucose 194 H 04/03/20 06:29: POC Glucose 165 H 04/03/20 07:22: WBC 11.8 H, RBC 4.28, Hgb 13.0, Hct 40.8, MCV 95.3, MCH 30.4, MCHC 31.9 L, RDW Std Deviation 48.8 H, RDW Coeff of Mark 13.9, Plt Count 233, MPV 10.3, Immature Gran % (Auto) 0.400, Neut % (Auto) 63.7, Lymph % (Auto) 22.2, Kings % (Auto) 9.9, Eos % (Auto) 3.3, Baso % (Auto) 0.5, Absolute Neuts (auto) 7.5, Absolute Lymphs (auto) 2.63, Nucleated RBC % 0 04/03/20 07:22: Sodium 138, Potassium 3.7, Chloride 105, Carbon Dioxide 24.0, Anion Gap 9, BUN 12, Creatinine 0.87, Estim Creat Clear Calc 60.12, Est GFR (MDRD) Af Amer 86, Est GFR (MDRD) Non-Af 71, BUN/Creatinine Ratio 13.9, Glucose 158 H, Calcium 9.1, TSH 2.43 04/03/20 07:22: Hemoglobin A1c 7.3 H 04/03/20 09:09: POC Glucose 138 H Current Medications Acetaminophen (Tylenol) 650 mg PO Q6H PRN PRN PRN Reason: Pain Score 1-10/Temp > 100.7 F Al Hydroxide/Mg Hydroxide (Mylanta Ii) 30 ml PO Q6H PRN PRN PRN Reason: Gastric Burning Albuterol Sulfate (Ventolin Aerosols) 2.5 mg INHALATION Q4H PRN PRN PRN Reason: SOB &/OR WHEEZING Amitriptyline HCl (Elavil) 10 mg PO QHS [facility] Last Admin: 04/02/20 21:17 Dose: 10 mg Documented by: Amlodipine Besylate (Norvasc) 10 mg PO DAILY [facility] Atorvastatin Calcium (Lipitor) 10 mg PO QHS [facility] Last Admin: 04/02/20 21:17 Dose: 10 mg Documented by: Benzonatate (Tessalon Perle) 100 mg PO BID PRN PRN PRN Reason: COUGH Clindamycin HCl (Cleocin) 300 mg PO TID [facility] Stop: 04/03/20 14:01 Last Admin: 04/03/20 05:27 Dose: 300 mg Documented by: Cyclobenzaprine HCl (Flexeril) 10 mg PO TID PRN PRN PRN Reason: muscle spasms Dextrose (D50w Syringe) 0 gm IV X1 PRN; Protocol PRN Reason: Hypoglycemia Enoxaparin Sodium (Lovenox) 40 mg SC DAILY [facility] Last Admin: 04/03/20 08:12 Dose: Not Given Documented by: Glucagon () 1 mg IM .X1 PRN PRN Reason: Hypoglycemia Piperacillin Sod/Tazobactam (Sod 3.375 gm/ Sodium Chloride) 50 mls @ 12.5 mls/hr IV Q8 [facility] Last Infusion: 04/03/20 09:26 Dose: Infused Documented by: Insulin Human Lispro (Humalog Kwikpen (Bkc)) 0 unit SC ACHS [facility]; Protocol Last Admin: 04/03/20 06:30 Dose: 2 u Documented by: Melatonin (Melatonin) 3 mg PO QHS PRN PRN PRN Reason: INSOMNIA Morphine Sulfate () 2 mg IV Q3H PRN PRN PRN Reason: Pain Score 6-10/10 Oxycodone HCl (Oxyir) 5 mg PO Q4H PRN PRN PRN Reason: Pain Score 4-5/10 Prochlorperazine Edisylate (Compazine Iv) 5 mg IV Q4H PRN PRN PRN Reason: Breakthrough nausea/vomiting Promethazine HCl (Phenergan) 12.5 mg IV Q6H PRN PRN PRN Reason: Breakthrough nausea/vomiting Sodium Chloride () 10 - 40 ml IV UD PRN PRN Reason: SALINE FLUSH STROKE Vital Signs/Narrative: Vital Signs Temp Pulse Resp BP Pulse Ox 04/03/20 08:08 97.8 F 88 18 129/72 H 98 Medical Necessity - Tobacco Use Smoking Status: Current every day smoker Tobacco Use: Cigarettes Assessment/Plan All Active Problems (Last Reviewed 10/05/19 @ 13:42 by Syl Fischer) Abscess of right thigh (Acute) Small bowel ileus (Resolved) Dizziness (Resolved) UTI (urinary tract infection) (Resolved) The patient is a 59 year old F with history of diabetes mellitus type 2 for more than 10 years came to ER for swelling in right upper thigh for 3 weeks. Patient denies fever and chills. Patient was given IV clindamycin and further admitted 1. Right upper anterior medial thigh abscess: Patient is being admitted on MedSurg. Patient had incision and drainage in ED. Started on IV Zosyn. Clindamycin continued for toxin inhibitory effect. Wound culture including MRSA ordered. Patient has mild leukocytosis. 04/03: Leukocytosis mild 11.8 thousand. Had incision and drainage of right upper thigh abscess; 13 x 5 x 3 cm size of defect. About 65 cm? area of abscess. CRP 28.6. MRSA nasal screen negative. Tissue culture is pending. COVID-19 PCR negative. Gram stain of initial wound culture in ER does not show organism. 2. Diabetes mellitus type 2: Patient is not on insulin or oral hypoglycemic agent. In the past she was on byetta. Glucose 161. A1c 7.3. Blood sugar is controlled. 3. Arrhythmia status post permanent pacemaker: She has history of intermittent complete heart block status post pacemaker placement in July 2019. 4. Other chronic comorbidities include hypertension, dyslipidemia, anxiety and depression: Stable. Home medications reconciliation done. DVT prophylaxis: Lovenox 40 minutes subcu daily [] Microbiology Past 72 Hours 04/02/20 16:30 Wound Abcess - Leg, Right Gram Stain - Final 04/03/20 08:20 Mucosa - Nasopharyngeal Coronavirus COVID-19 PCR - Final Laboratory Results 04/02/20 15:25: C-React Prot Ext Range 28.60 H 04/02/20 18:30: MRSA (PCR) Negative 04/02/20 18:30: S.aureus Protein A PCR NEGATIVE, MRSA (PCR) Negative 04/02/20 21:56: POC Glucose 194 H 04/03/20 06:29: POC Glucose 165 H 04/03/20 07:22: WBC 11.8 H, RBC 4.28, Hgb 13.0, Hct 40.8, MCV 95.3, MCH 30.4, MCHC 31.9 L, RDW Std Deviation 48.8 H, RDW Coeff of Mark 13.9, Plt Count 233, MPV 10.3, Immature Gran % (Auto) 0.400, Neut % (Auto) 63.7, Lymph % (Auto) 22.2, Kings % (Auto) 9.9, Eos % (Auto) 3.3, Baso % (Auto) 0.5, Absolute Neuts (auto) 7.5, Absolute Lymphs (auto) 2.63, Nucleated RBC % 0 04/03/20 07:22: Sodium 138, Potassium 3.7, Chloride 105, Carbon Dioxide 24.0, Anion Gap 9, BUN 12, Creatinine 0.87, Estim Creat Clear Calc 60.12, Est GFR (MDRD) Af Amer 86, Est GFR (MDRD) Non-Af 71, BUN/Creatinine Ratio 13.9, Glucose 158 H, Calcium 9.1, TSH 2.43 04/03/20 07:22: Hemoglobin A1c 7.3 H 04/03/20 09:09: POC Glucose 138 H 04/03/20 13:36: POC Glucose 115 H Inpatient E&M: 30699 Subs Hosp L2
--- NOTE | 2020-04-03 13:26 | OP.PCM_ITS ---
Report of Operation Date of Procedure: 04/03/20 Pre-Operative Diagnosis: 1. Diabetic abscess right upper medial thigh. 2. Smoker. Post-Operative Diagnosis: 1. 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 2. Open surgical necrotizing diabetic abscess wound right upper medial thigh. 3. Smoker. Surgery/Procedure Performed:: Surgical preparation right upper medial thigh with incision and drainage and excisional debridement diabetic abscess (65 cm2). Description of Surgical Findings:: he patient is a 59 year old F with history of diabetes mellitus type 2 for more than 10 years came to ER for swelling in right upper thigh for 3 weeks. Patient denies fever and chills. Initially she felt pain and swelling and was started on Zithromax. It continued to enlarge therefore came to Patient was given IV clindamycin and further admitted It continued to enlarge therefore came to ER. In ED, a fluctuant abscess was seen and an I&D was performed. She was given Clindamycin in the ED. She was admitted and was placed on Zosyn. Her WBC was 12.9. I was asked to evaluate this patient for surgical options for treatment. Patient was informed of the risks and complications of the procedure including alternatives to surgery. These were discussed with the patient personally. Patient voices understanding and wishes to proceed. Encouraged patient to stop smoking as it may have deleterious effects on wound healing. Size of defect right upper medial thigh - 13 x 5 x 3 cm. 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 Drains: None. Estimated Blood Loss (mL): 50 ml. Description of Procedure: Patient was taken to OR in supine position and was placed under general anesthesia. The right medial thigh and vulval areas were prepped and draped in the usual fashion. SCD's were placed for DVT prophylaxis. Perioperative antibiotics were given intravenously. A celis catheter was placed. Using xylocaine with epinephrine, the area of redness where the I&D was done was infiltrated. After waiting 5 minutes for the anesthetic to take effect, A circular incision was made around the area of redness and firmness. Dissection was carried down into the subcutaneous tissue. Some pus was seen. A lot of fat necrosis was present. Excision was carried down to the muscular fascia. The muscle and fascia appeared mildly inflamed yet viable. The fat necrosis was excised and debrided. The wound was irrigated with saline. Hemostasis was obtained with electrocautery. Some of the tissue removed was sent to Pathology for analysis to rule out carcinoma and some of the tissue was sent to Microbiology for culture. A positive culture may necessitate antibiotic therapy. Size of the defect right upper medial thigh after I&D and excisional debridement was 13 x 5 x 3 cm or 65 cm2. The wound was dressed with Mepitel nonadherent dressing followed by Kerlix gauze and Betadine followed by dry Kerlix gauzed followed by ABD pads compression dressing. The VAC will be applied tomorrow. Patient tolerated the procedure well and was sent to PACU in satisfactory condition. Patient will be sent upstairs for continued postop care. The VAC will be applied tomorrow. After discharge, followup at the [facility]. If there is a plateau in the healing process, can proceed with delayed closure with skin grafting. If a skin graft is needed, her HgbA1c needs to be less than 8. Grafts/Implants Used: None. - Complications None. - Admit VTE Documentation VTE Present on Admission: No VTE Mechan Device Prophylaxis: SCD's VTE Pharm Prophylaxis ordered?: Yes Surgery Charges CPT - 92194 ICD-10 - L02.415, S71.101A, M79.89, E11.9, F17.200 [id number] L02.415, M79.89, E11.9, S71.101A, F17.200
[2020-04-03 13:41] LABS: Bedside Glucose 115 mg/dL (70-110)
[2020-04-03] MEDS: Acetaminophen 325 MG Tablet 650 MG PO (15:16)
[2020-04-03] MEDS: amLODIPine 10 MG Tablet PO (15:16)
[2020-04-03] MEDS: hydroCHLOROthiazide 12.5mg 12.5 MG PO (16:48)
[2020-04-03 16:51] LABS: Bedside Glucose 108 mg/dL (70-110)
[2020-04-03] MEDS: hydrALAZINE 20 MG/ML Vial 10 MG IV (16:51)
[2020-04-03] MEDS: Amitriptyline 10 MG Tablet PO (21:11)
[2020-04-03] MEDS: Atorvastatin Calcium 10 MG Tablet PO (21:11)
[2020-04-03 21:55] LABS: Bedside Glucose 182 mg/dL (70-110)
[2020-04-04 00:51] VITALS: BP 145/74; PULSE 88; RESP 18; TEMP 36.5; O2SAT 100
[2020-04-04 04:56] VITALS: BP 171/76; PULSE 88; RESP 16; TEMP 36.8; O2SAT 98
[2020-04-04] MEDS: Bisacodyl 5 MG Tablet 10 MG PO (05:46)
[2020-04-04 06:02] LABS: Hematocrit 40.3 % (37-47); Mean Corp Hgb Conc 32.3 g/dL (32-36); Mean Corpuscular Hgb 30.8 pg (27.0-32.0); Mean Corpuscular Volume 95.5 fL (81-99); Mean Platelet Vol. 9.9 fl (6.2-12.0); Platelet Count 235 K/mm3 (150-450); RBC Distribution Width CV 13.8 % (11.6-14.6); RBC Distribution Width SD 47.9 fl (35.1-43.9); Red Blood Count 4.22 M/mm3 (4.2-5.4); White Blood Count 13.4 K/mm3 (4.4-11.0)
[2020-04-04 06:17] LABS: Anion Gap 6 (5-15); BUN 11 mg/dL (7-18); BUN/Creat Ratio 12.9 RATIO (10-20); Calcium,Total 9.3 mg/dL (8.5-10.1); Chloride 104 mmol/L (98-107); Creatinine, Serum 0.85 mg/dL (0.55-1.02); EST Glomerular Filtration Rate 73 mL/min (>60); Est Glom Filt Rate - Afr Amer 88 mL/min (>60); Estimated Creatinine Clearance 61.54 ml/min; Glucose 136 mg/dL (74-106); Potassium 3.8 mmol/L (3.5-5.1); Sodium Level 137 mmol/L (136-145)
[2020-04-04 06:46] LABS: Bedside Glucose 136 mg/dL (70-110)
[2020-04-04 08:14] LABS: Hemoglobin A1c 7.3 % (3.8-5.6)
[2020-04-04 09:01] VITALS: BP 163/69; PULSE 92; RESP 16; TEMP 36.8; O2SAT 98
[2020-04-04] MEDS: hydroCHLOROthiazide 12.5mg 12.5 MG PO ×2 (09:17→12:01)
[2020-04-04] MEDS: Enoxaparin 40 MG/0.4 ML Syringe SC (09:17)
[2020-04-04] MEDS: amLODIPine 10 MG Tablet PO (09:17)
--- NOTE | 2020-04-04 10:08 | NURSING ---
wound photo: right upper medial thigh
[2020-04-04] MEDS: Insulin Lispro 100 UNIT/ML INSULN.PEN SC ×2 (10:42→21:08)
--- NOTE | 2020-04-04 11:50 | CASEMGMT ---
DORINA LANCASTER Face to Face with patient for initial transition planning/care coordination assessment. DORINA LANCASTER introduced self and role at [facility]. Patient lying in bed, alert and oriented. Patient willing to participate in assessment and is able to answer all questions appropriately. Care providers, pharmacy, and demographics verified. Patient wishes to discharge home and will need HHC for wound vac changes. Patient states she would like [facility] HHC. Patient states she has no further needs or concerns at this time. CM to follow for discharge planning needs that may arise. PCP: Sue Specialists: Honorio, Plastic surgeon, Grace, ortho; Alise, dry pan operator Preferred Pharmacy: [facility] Insurance: [employer] H[employer] Prescription Benefit: yes Living Will/HPOA: yes, sister Cady Yip LNOK: sister Living Arrangements: Patient is currently lives at [facility] on main level of house, no steps to enter. 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 Patient denies previous HHC. DORINA LANCASTER called CM at [facility] and discussed discharge needs. [facility] agreeable for HHC. DORINA LANCASTER to send [facility] Disposition Plan: Patient to discharge with HHC and follow-up plans in place. Krystin RIVAS, RN, CM
--- NOTE | 2020-04-04 14:21 | PN_ITS ---
Patient Problems: Active and Suspected Problems (Last Reviewed 10/05/19 @ 13:42 by Syl Fischer) Abscess of right thigh (Acute) Reason for Visit: Right upper medial thigh abscess status post incision and drainage Objective: Seen and examined. Patient was found by lethargic and stated she could not sl eep last night. She was awake, alert and oriented x3 and comprehensive after waking up. No no fever or chills. Vitals within acceptable limit. General: Cooperative, awake, alert and oriented x3. HEENT: Atraumatic, PERRLA, EOMI, Normocephalic Oral: No Gingival or Mucosal Lesions/ Ulcerations Neck: Supple, No JVD, Negative Carotid Bruits Lungs: Clear to auscultation, No rhonchi, No wheeze, No rales, Diminished Cardiovascular: Regular rate, Regular Rhythm, Normal S1, Normal S2, No murmurs Abdomen: Bowel Sounds Present, Soft, Non Tender, Non-Distended Extremities: No edema, Capillary Refill Less than 3 Seconds Skin: Ulcer/ Wound - Right thigh incision and drainage after operative debridement. Zack wrap bandage on. Musculoskeletal: No Tenderness to Palpation of Joints or Extremities Neurological: Cranial nerves II-XII grossly intact, Deep Tendon Reflexes 2+/4 and Symmetrical, Neuro grossly intact Psych/Mental Status: Normal Affect, Appropriate Vitals/I&O's: Vital Signs Temp Pulse Resp BP Pulse Ox 98.2 F 92 16 163/69 H 98 04/04/20 09:01 04/04/20 09:01 04/04/20 09:01 04/04/20 09:01 04/04/20 09:01 Oxygen Flow Rate (L/min) 2 Oxygen Delivery Method Nasal Cannula Weight: 240 lb Body Mass Index (BMI) 41.1 Finger Stick Blood Glucose 115 Intake and Output for Last 24 Hours 04/02/20 04/03/20 04/04/20 23:59 23:59 23:59 Intake Total 1209 / 1509 1975 / 2225 600 / 600 Output Total 3075 / 4975 3250 / 3250 Balance 1209 / 1509 -1100 / -2750 -2650 / -2650 Microbiology Past 72 Hours 04/03/20 13:41 Tissue - Leg, Right Gram Stain - Final 04/03/20 13:41 Tissue - Leg, Right Wound Culture - Preliminary No growth-Final to follow 04/02/20 16:30 Wound Abcess - Leg, Right Gram Stain - Final 04/02/20 16:30 Wound Abcess - Leg, Right Wound Culture - Preliminary No growth-Final to follow 04/03/20 08:20 Mucosa - Nasopharyngeal Coronavirus COVID-19 PCR - Final Laboratory Results 04/03/20 16:42: POC Glucose 108 04/03/20 21:45: POC Glucose 182 H 04/04/20 05:25: WBC 13.4 H, RBC 4.22, Hgb 13.0, Hct 40.3, MCV 95.5, MCH 30.8, MCHC 32.3, RDW Std Deviation 47.9 H, RDW Coeff of Mark 13.8, Plt Count 235, MPV 9.9 04/04/20 05:25: Sodium 137, Potassium 3.8, Chloride 104, Carbon Dioxide 27.0, Anion Gap 6, BUN 11, Creatinine 0.85, Estim Creat Clear Calc 61.54, Est GFR (MDRD) Af Amer 88, Est GFR (MDRD) Non-Af 73, BUN/Creatinine Ratio 12.9, Glucose 136 H, Calcium 9.3 04/04/20 05:25: Hemoglobin A1c 7.3 H 04/04/20 06:39: POC Glucose 136 H Current Medications Acetaminophen (Tylenol) 650 mg PO Q6H PRN PRN PRN Reason: Pain Score 1-10/Temp > 100.7 F Last Admin: 04/03/20 15:16 Dose: 650 mg Documented by: Al Hydroxide/Mg Hydroxide (Mylanta Ii) 30 ml PO Q6H PRN PRN PRN Reason: Gastric Burning Albuterol Sulfate (Ventolin Aerosols) 2.5 mg INHALATION Q4H PRN PRN PRN Reason: SOB &/OR WHEEZING Amitriptyline HCl (Elavil) 10 mg PO QHS [facility] Last Admin: 04/03/20 21:11 Dose: 10 mg Documented by: Amlodipine Besylate (Norvasc) 10 mg PO DAILY [facility] Last Admin: 04/04/20 09:17 Dose: 10 mg Documented by: Atorvastatin Calcium (Lipitor) 10 mg PO QHS [facility] Last Admin: 04/03/20 21:11 Dose: 10 mg Documented by: Benzonatate (Tessalon Perle) 100 mg PO BID PRN PRN PRN Reason: COUGH Cyclobenzaprine HCl (Flexeril) 10 mg PO TID PRN PRN PRN Reason: muscle spasms Dextrose (D50w Syringe) 0 gm IV X1 PRN; Protocol PRN Reason: Hypoglycemia Diazepam (Valium) 5 mg PO 4X/DAY PRN PRN PRN Reason: SPASMS Enoxaparin Sodium (Lovenox) 40 mg SC DAILY [facility] Last Admin: 04/04/20 09:17 Dose: 40 mg Documented by: Glucagon () 1 mg IM .X1 PRN PRN Reason: Hypoglycemia Hydralazine HCl (Apresoline Iv) 10 mg IV Q4H PRN PRN PRN Reason: SBP more than 180 mmHg Last Admin: 04/03/20 16:51 Dose: 10 mg Documented by: Hydrochlorothiazide (Hctz) 25 mg PO DAILY [facility] Piperacillin Sod/Tazobactam (Sod 3.375 gm/ Sodium Chloride) 50 mls @ 12.5 mls/hr IV Q8 [facility] Last Infusion: 04/04/20 09:50 Dose: Infused Documented by: Insulin Human Lispro (Humalog Kwikpen (Bkc)) 0 unit SC ACHS [facility]; Protocol Last Admin: 04/04/20 10:42 Dose: 4 u Documented by: Melatonin (Melatonin) 3 mg PO QHS PRN PRN PRN Reason: INSOMNIA Morphine Sulfate () 2 mg IV Q3H PRN PRN PRN Reason: Pain Score 6-10/10 Oxycodone HCl (Oxyir) 5 mg PO Q4H PRN PRN PRN Reason: Pain Score 4-5/10 Potassium [facility] (K[facility]Dur[facility] Last Admin: 04/04/20 12:02 Dose: 20 meq Documented by: Prochlorperazine Edisylate (Compazine Iv) 5 mg IV Q4H PRN PRN PRN Reason: Breakthrough nausea/vomiting Promethazine HCl (Phenergan) 12.5 mg IV Q6H PRN PRN PRN Reason: Breakthrough nausea/vomiting Sodium Chloride () 10 - 40 ml IV UD PRN PRN Reason: SALINE FLUSH Medical Necessity - Tobacco Use Smoking Status: Current every day smoker Tobacco Use: Cigarettes Assessment/Plan All Active Problems (Last Reviewed 10/05/19 @ 13:42 by Syl Fischer) Abscess of right thigh (Acute) Small bowel ileus (Resolved) Dizziness (Resolved) UTI (urinary tract infection) (Resolved) The patient is a 59 year old F with history of diabetes mellitus type 2 for more than 10 years came to ER for swelling in right upper thigh for 3 weeks. Patient denies fever and chills. Patient was given IV clindamycin and further admitted 1. Right upper anterior medial thigh abscess: Patient is being admitted on MedSurg. Patient had incision and drainage in ED. Started on IV Zosyn. Patient had total 3 doses of clindamycin. 04/03: Leukocytosis mild 11.8 thousand. Had incision and drainage of right upper thigh abscess; 13 x 5 x 3 cm size of defect. About 65 cm? area of abscess. CRP 28.6. MRSA nasal screen negative. Tissue culture is pending. COVID-19 PCR negative. Gram stain of initial wound culture in ER does not show organism. 04/04: Persistent mild leukocytosis. Gram stain from 04/02 and 04/03 does not show any growth. No fever during the hospital course. Discussed with abraham TERRY to discharge home Augmentin, most probably tomorrow a.m. 2. Diabetes mellitus type 2: Patient is not on insulin or oral hypoglycemic agent. In the past she was on byetta. Glucose 161. A1c 7.3. Blood sugar is controlled. 3. Arrhythmia status post permanent pacemaker: She has history of intermittent complete heart block status post pacemaker placement in July 2019. 4. Other chronic comorbidities include hypertension, dyslipidemia, anxiety and depression: Stable. Home medications reconciliation done. DVT prophylaxis: Lovenox 40 minutes subcu daily [] Microbiology Past 72 Hours 04/03/20 13:41 Tissue - Leg, Right Gram Stain - Final 04/03/20 13:41 Tissue - Leg, Right Wound Culture - Preliminary No growth-Final to follow 04/02/20 16:30 Wound Abcess - Leg, Right Gram Stain - Final 04/02/20 16:30 Wound Abcess - Leg, Right Wound Culture - Preliminary No growth-Final to follow 04/03/20 08:20 Mucosa - Nasopharyngeal Coronavirus COVID-19 PCR - Final Laboratory Results 04/03/20 16:42: POC Glucose 108 04/03/20 21:45: POC Glucose 182 H 04/04/20 05:25: WBC 13.4 H, RBC 4.22, Hgb 13.0, Hct 40.3, MCV 95.5, MCH 30.8, M CHC 32.3, RDW Std Deviation 47.9 H, RDW Coeff of Mark 13.8, Plt Count 235, MPV 9.9 04/04/20 05:25: Sodium 137, Potassium 3.8, Chloride 104, Carbon Dioxide 27.0, Anion Gap 6, BUN 11, Creatinine 0.85, Estim Creat Clear Calc 61.54, Est GFR (MDRD) Af Amer 88, Est GFR (MDRD) Non-Af 73, BUN/Creatinine Ratio 12.9, Glucose 136 H, Calcium 9.3 04/04/20 05:25: Hemoglobin A1c 7.3 H 04/04/20 06:39: POC Glucose 136 H TSH 2.43 04/03/20 07:22: Hemoglobin A1c 7.3 H 04/03/20 09:09: POC Glucose 138 H 04/03/20 13:36: POC Glucose 115 H Inpatient E&M: 87602 Subs Hosp L2
[2020-04-04 14:35] VITALS: BP 142/60; PULSE 92; RESP 16; TEMP 36.8; O2SAT 98
--- NOTE | 2020-04-04 16:05 | CASEMGMT ---
DORINA LANCASTER received call back from [facility] and they are not able to accept patient at this time. DORINA LANCASTER will follow-up with patient and plan for HHC.
[2020-04-04 16:06] LABS: Bedside Glucose 222 mg/dL (70-110)
[2020-04-04 16:06] LABS: Bedside Glucose 136 mg/dL (70-110)
--- NOTE | 2020-04-04 16:26 | CASEMGMT ---
Social Work Note SW [facility] SW will speak with pt tomorrow. Krystin Cortez TALENT ACQUISITION OPERATIONS MANAGER, TRUCK DESPATCHER
--- NOTE | 2020-04-04 17:06 | PN.SURG_ITS ---
Subjective: Postop #1 Patient complains of wound pain. VAC applied today. - Physical Exam Vitals/I&O's: Vital Signs Temp Pulse Resp BP Pulse Ox 98.3 F 92 16 142/60 H 98 04/04/20 14:35 04/04/20 14:35 04/04/20 14:35 04/04/20 14:35 04/04/20 14:35 Oxygen Flow Rate (L/min) 2 Oxygen Delivery Method Nasal Cannula Weight: 252 lb 3.2 oz Body Mass Index (BMI) 41.1 Finger Stick Blood Glucose 115 Intake and Output for Last 24 Hours 04/02/20 04/03/20 04/04/20 23:59 23:59 23:59 Intake Total 1209 / 1509 1975 / 2225 600 / 600 Output Total 3075 / 4975 3250 / 3250 Balance 1209 / 1509 -1100 / -2750 -2650 / -2650 General: Alert, Oriented x3 HEENT: PERRLA, EOMI Oral: Moist Mucosa Neck: Supple Abdomen: Soft, Non-Distended Skin: Ulcer/ Wound - right upper medial thigh wound is stable. No active bleeding seen. The VAC was applied. Neurological: Cranial nerves II-XII grossly intact Psych/Mental Status: Normal Affect, Appropriate Microbiology Past 72 Hours 04/03/20 13:41 Tissue - Leg, Right Gram Stain - Final 04/03/20 13:41 Tissue - Leg, Right Wound Culture - Preliminary No growth-Final to follow 04/02/20 16:30 Wound Abcess - Leg, Right Gram Stain - Final 04/02/20 16:30 Wound Abcess - Leg, Right Wound Culture - Preliminary No growth-Final to follow 04/03/20 08:20 Mucosa - Nasopharyngeal Coronavirus COVID-19 PCR - Final Laboratory Results 04/03/20 21:45: POC Glucose 182 H 04/04/20 05:25: WBC 13.4 H, RBC 4.22, Hgb 13.0, Hct 40.3, MCV 95.5, MCH 30.8, MCHC 32.3, RDW Std Deviation 47.9 H, RDW Coeff of Mark 13.8, Plt Count 235, MPV 9.9 04/04/20 05:25: Sodium 137, Potassium 3.8, Chloride 104, Carbon Dioxide 27.0, Anion Gap 6, BUN 11, Creatinine 0.85, Estim Creat Clear Calc 61.54, Est GFR (MDRD) Af Amer 88, Est GFR (MDRD) Non-Af 73, BUN/Creatinine Ratio 12.9, Glucose 136 H, Calcium 9.3 04/04/20 05:25: Hemoglobin A1c 7.3 H 04/04/20 06:39: POC Glucose 136 H 04/04/20 10:39: POC Glucose 222 H 04/04/20 15:58: POC Glucose 136 H Current Medications Acetaminophen (Tylenol) 650 mg PO Q6H PRN PRN PRN Reason: Pain Score 1-10/Temp > 100.7 F Last Admin: 04/03/20 15:16 Dose: 650 mg Documented by: Al Hydroxide/Mg Hydroxide (Mylanta Ii) 30 ml PO Q6H PRN PRN PRN Reason: Gastric Burning Albuterol Sulfate (Ventolin Aerosols) 2.5 mg INHALATION Q4H PRN PRN PRN Reason: SOB &/OR WHEEZING Amitriptyline HCl (Elavil) 10 mg PO QHS [facility] Last Admin: 04/03/20 21:11 Dose: 10 mg Documented by: Amlodipine Besylate (Norvasc) 10 mg PO DAILY [facility] Last Admin: 04/04/20 09:17 Dose: 10 mg Documented by: Atorvastatin Calcium (Lipitor) 10 mg PO QHS [facility] Last Admin: 04/03/20 21:11 Dose: 10 mg Documented by: Benzonatate (Tessalon Perle) 100 mg PO BID PRN PRN PRN Reason: COUGH Cyclobenzaprine HCl (Flexeril) 10 mg PO TID PRN PRN PRN Reason: muscle spasms Dextrose (D50w Syringe) 0 gm IV X1 PRN; Protocol PRN Reason: Hypoglycemia Diazepam (Valium) 5 mg PO 4X/DAY PRN PRN PRN Reason: SPASMS Enoxaparin Sodium (Lovenox) 40 mg SC DAILY [facility] Last Admin: 04/04/20 09:17 Dose: 40 mg Documented by: Glucagon () 1 mg IM .X1 PRN PRN Reason: Hypoglycemia Hydralazine HCl (Apresoline Iv) 10 mg IV Q4H PRN PRN PRN Reason: SBP more than 180 mmHg Last Admin: 04/03/20 16:51 Dose: 10 mg Documented by: Hydrochlorothiazide (Hctz) 25 mg PO DAILY [facility] Piperacillin Sod/Tazobactam (Sod 3.375 gm/ Sodium Chloride) 50 mls @ 12.5 mls/hr IV Q8 [facility] Last Admin: 04/04/20 14:33 Dose: 12.5 mls/hr Documented by: Insulin Human Lispro (Humalog Kwikpen (Bkc)) 0 unit SC ACHS [facility]; Protocol Last Admin: 04/04/20 16:54 Dose: Not Given Documented by: Melatonin (Melatonin) 3 mg PO QHS PRN PRN PRN Reason: INSOMNIA Morphine Sulfate () 2 mg IV Q3H PRN PRN PRN Reason: Pain Score 6-10/10 Oxycodone HCl (Oxyir) 5 mg PO Q4H PRN PRN PRN Reason: Pain Score 4-5/10 Potassium Chloride (K-Dur) 20 meq PO DAILYCM [facility] Last Admin: 04/04/20 12:02 Dose: 20 meq Documented by: Prochlorperazine Edisylate (Compazine Iv) 5 mg IV Q4H PRN PRN PRN Reason: Breakthrough nausea/vomiting Promethazine HCl (Phenergan) 12.5 mg IV Q6H PRN PRN PRN Reason: Breakthrough nausea/vomiting Sodium Chloride () 10 - 40 ml IV UD PRN PRN Reason: SALINE FLUSH Medical Necessity - Tobacco Use Smoking Status: Current every day smoker Tobacco Use: Cigarettes Assessment/Plan All Active Problems (Last Reviewed 10/05/19 @ 13:42 by Syl Fischer) Necrotizing soft tissue infection (Acute) Open wound of right thigh (Acute) Abscess of right thigh (Acute) Small bowel ileus (Resolved) Dizziness (Resolved) UTI (urinary tract infection) (Resolved) 1. 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 2. Open surgical necrotizing diabetic abscess wound right upper medial thigh. 3. Smoker. Continue IV antibiotics with Zosyn. Operative cultures are negative thus far. Wound is stable with no active bleeding seen. VAC was applied today without difficulty. To be changed three times per week at 150 mmHg continuous suction. She has wound pain with the VAC. Still needs IV analgesia. Will keep one more day until tolerating po analgesia. After discharge, will [facility]. If there is a plateau in the healing process, can proceed with delayed closure with skin grafting. If skin grafting is needed in the future, her HgbA1c needs to be less than 8. Right now it is 7.3.
[2020-04-04] MEDS: 0.9% Saline Lock 10 ML Syringe IV (21:08)
[2020-04-04] MEDS: Atorvastatin Calcium 10 MG Tablet PO (21:16)
[2020-04-04] MEDS: Amitriptyline 10 MG Tablet PO (21:16)
[2020-04-04 21:27] VITALS: BP 136/66; PULSE 88; RESP 18; TEMP 36.8; O2SAT 98
[2020-04-04 21:31] LABS: Bedside Glucose 171 mg/dL (70-110)
--- NOTE | 2020-04-04 21:33 | NURSING ---
this rn found pt naked in her chair covered with sheet, pt had disconnected her iv tubing, area cleaned, reconnected and new dressing on. pt states she is warm and her gown is damp so she took it off. pt wants a shower explained she has a wound vac but restorative coordinator can give her a sponge bath pt agreeable, also asked pt to call for assist with iv not to unhook it, pt denies unhooking iv.
[2020-04-05 03:11] VITALS: BP 146/62; PULSE 92; RESP 18; TEMP 36.4; O2SAT 95
[2020-04-05] MEDS: Insulin Lispro 100 UNIT/ML INSULN.PEN SC ×2 (06:31→11:11)
[2020-04-05 06:35] LABS: Bedside Glucose 154 mg/dL (70-110)
[2020-04-05 07:05] LABS: Absolute Lymphocyte Count 2.51 X10^3/uL (0.83-4.51); Absolute Neutrophil Count 10.2 X10^3/uL (2.0-7.7); Basophil# 0.07 X10^3/uL; Basophil% 0.5 % (0-1); Eosinophil# 0.28 X10^3/uL; Hematocrit 40.6 % (37-47); Hemoglobin 13.1 g/dL (12.0-15.0); Lymphocyte # 2.51 X10^3/ul (4.0); Lymphocyte % 17.8 % (19-41); Mean Corp Hgb Conc 32.3 g/dL (32-36); Mean Corpuscular Hgb 30.5 pg (27.0-32.0); Mean Corpuscular Volume 94.6 fL (81-99); Monocyte# 1.02 X10^3/uL; Monocyte% 7.2 % (0-10); NRBC Flagged by Analyzer 0 % (0-5); Neutrophil # 10.19 X10^3/uL (2.7-7.7); Platelet Count 252 K/mm3 (150-450); RBC Distribution Width CV 13.5 % (11.6-14.6); RBC Distribution Width SD 47.2 fl (35.1-43.9); Red Blood Count 4.29 M/mm3 (4.2-5.4); White Blood Count 14.1 K/mm3 (4.4-11.0)
[2020-04-05 07:46] VITALS: BP 138/70; PULSE 92; RESP 16; TEMP 36.9; O2SAT 93
[2020-04-05 09:20] VITALS: O2SAT 94
--- NOTE | 2020-04-05 10:05 | CASEMGMT ---
Social Work SW met with pt and introduced self and role to pt. Pt sitting up but not making eye contact with SW. SW inquired about housing issues and pt states at discharge she is planning to return to [facility] which is the half-way at [address]. SW inquired if pt needed resources for housing however pt denies stating she has used [facility] in the past and she will not fall into that trap again. Pt stating she will work on finding private housing after she returns to the half-way. Pt denies any further needs from [facility]. LOLA Killian
[2020-04-05] MEDS: Enoxaparin 40 MG/0.4 ML Syringe SC (10:15)
[2020-04-05] MEDS: hydroCHLOROthiazide 25 MG Tablet PO (10:15)
[2020-04-05] MEDS: amLODIPine 10 MG Tablet PO (10:16)
--- NOTE | 2020-04-05 10:28 | PCM.DC ---
- Discharge Diagnoses Current Active Problems: Current Active and Chronic Problems (Last Reviewed 10/05/19 @ 13:42 by Syl Fischer) Abscess of right thigh (Acute) You will use the following diet at home:: Calorie/Carbohydrate Controlled (specify 1200, 1400, etc) - 1800 ADA diet, Cardiac Your food should be the consistency of: Regular Your liquids should be the consistency of: Regular/Thin Discharge Activity: May Not Drive Weight Bearing Status: Weight bearing as tolerated Call your doctor if you observe: Fever of 101 or Higher, Numbness or Tingling, Inability to urinate, Inability to have a bowel movement, Using more than one pad per hour, Shortness of breath, Fainting spells, Chest pain, Prolonged hiccoughing, Increased palpitations (irregular heartbeat), Calf discomfort, Uncontrolled pain Additional Instructions: Follow-up in wound center every week. Wound VAC need to be set up at home Allergies/Adverse Reactions: Allergies enalapril Adverse Reaction (Verified 04/02/20 14:25) COUGH lisinopril Adverse Reaction (Verified 04/02/20 14:25) COUGH Medications to take at Discharge Amitriptyline HCl [Elavil] 10 mg PO QHS 12/12/16 Amlodipine [Norvasc] 10 mg PO DAILY 02/06/17 cycloBENZAPRine HCl [Flexeril] 10 mg PO TID PRN PRN 02/06/17 Atorvastatin Calcium [Lipitor] 10 mg PO QHS 06/12/17 Albuterol Inhaler [Ventolin Hfa] 1 - 2 puff INHALATION Q4H PRN PRN #1 inhaler 08/25/19 benzonatate 100 mg capsule 100 mg PO BID PRN 11/22/19 Acetaminophen [Tylenol Arthritis] 1,300 mg PO DAILY PRN PRN 04/02/20 Amox/Clavulanate Tablet [Augmentin Tablet] 875 mg PO Q12H #14 tab 04/05/20 Diazepam [Valium] 5 mg PO 4X/DAY 7 Days #28 tab 04/05/20 Glipizide [Glipizide ER] 5 mg PO BREAKFAST #30 tab.er.24 04/05/20 Hydrochlorothiazide [Hctz] 25 mg PO DAILY #30 tab 04/05/20 Metformin HCl 500 mg PO BID #60 tab 04/05/20 Oxycodone HCl/Acetaminophen [Percocet 5/325] 1 tab PO Q4H PRN PRN 7 Days #40 tab 04/05/20 Potassium Chloride [K-Dur] 20 meq PO DAILYCM #30 tab 04/05/20 The following prescriptions were given: Amox/Clavulanate Tablet [Augmentin Tablet] 875 mg PO Q12H #14 tab Transmission Status: Received by [facility] #30 Glipizide [Glipizide ER] 5 mg PO BREAKFAST #30 tab.er.24 Transmission Status: Received by [facility] Hydrochlorothiazide [Hctz] 25 mg PO DAILY #30 tab Transmission Status: Received by [facility] Potassium Chloride [K-Dur] 20 meq PO DAILYCM #30 tab Transmission Status: Received by [facility] Metformin HCl 500 mg PO BID #60 tab Transmission Status: Received by [facility] Oxycodone HCl/Acetaminophen [Percocet 5/325] 1 tab PO Q4H PRN PRN 7 Days #40 tab PRN Reason: Pain Transmission Status: Received by [facility] Diazepam [Valium] 5 mg PO 4X/DAY 7 Days #28 tab Transmission Status: Received by [facility] Primary Care Physician: Lamberto Rogers MD [Primary Care Provider] - Please follow up with your Primary Care Physician in: in 1-2 week Test Results: Test results from this visit will be discussed in further detail at your follow-up appointment, if applicable. Please Follow Up With: Bradley Rojas MD When: prn for right thigh abscess
--- NOTE | 2020-04-05 10:39 | DS.PCM_ITS ---
Discharge Date and Diagnosis Date of Admission: 04/02/20 Date of Discharge: 04/05/20 - Primary Discharge Diagnosis Acute Problems: Active Problems (Last Reviewed 10/05/19 @ 13:42 by Syl Fischer) Abscess of right thigh (Acute) - Secondary Discharge Diagnosis Chronic Problems: Chronic Problems (Last Reviewed 10/05/19 @ 13:42 by Syl Fischer) Diabetes mellitus type 2 in obese (Chronic) Anxiety and depression (Chronic) Intermittent complete heart block (Chronic) PPM placement on 08/08/2019; History of permanent cardiac pacemaker placement (Chronic 08/08/19) Essential (primary) hypertension (Chronic) HLD (hyperlipidemia) (Chronic) Nicotine dependence (Chronic) Hospital Course and Treatment Consultations 04/03/20 08:33 Consult: Onc/Wound/inspector hot forgings Routine Comment: Reason for Consult:: R inner thigh cellulitis Operations: None, total hip replacement Summary of Care Provided: The patient is a 59 year old F with history of diabetes mellitus type 2 for more than 10 years came to ER for swelling in right upper thigh for 3 weeks. Patient denies fever and chills. Patient was given IV clindamycin and further admitted 1. Right upper anterior medial thigh abscess: Patient is being admitted on MedSurg. Patient had incision and drainage in ED. Started on IV Zosyn. Patient had total 3 doses of clindamycin. Patient had incision and drainage by Dr. Olmedo 13 x 5 x 3 cm size of defect. About 65 cm? area of abscess. CRP 28.6. MRSA nasal screen negative. Tissue culture is pending. COVID-19 PCR negative. Gram stain shows enterococcus although full culture and sensitivity report pending. Empirically patient is being discharged on Augmentin knowing that it might be changed based on the final culture. Follow-up in wound every week. Discussed with ID. 2. Diabetes mellitus type 2: Patient is not on insulin or oral hypoglycemic agent. In the past she was on byetta. Glucose 161. A1c 7.3. Blood sugar is controlled. Discharged on metformin and glipizide. Follow-up with PCP to further adjust glucose. 3. Hypertension: Blood pressure was elevated, systolic in the 185/75. Started on HCTZ 25 mg daily is much better controlled. Continue amlodipine 10 mg daily. 4. Arrhythmia status post permanent pacemaker: She has history of intermittent complete heart block status post pacemaker placement in July 2019. 5. Other chronic comorbidities include hypertension, dyslipidemia, anxiety and depression: Stable. DVT prophylaxis: Lovenox 40 minutes subcut daily [] Discharge medication reconciliation done. Discharge follow-up instructions completed. Discharge process discussed with the patient and all questions were answered to patient's satisfaction. Total time spent, exact 35 minutes on discharge meds reconciliation, examination, coordination of care with nurses and ancillary staff, review of imaging and blood test and discussion with the patient on follow-up instructions [] Objective: Patient blood sugar was elevated therefore HCTZ 25 mg started yesterday in addition to amlodipine 10 mg daily. Blood pressure is better controlled. Metformin and glipizide for diabetes mellitus type 2. No fever or chills. Wound VAC in place - Physical Exam Vitals/I&O's: Vital Signs Temp Pulse Resp BP Pulse Ox 98.4 F 92 16 138/70 H 94 04/05/20 07:46 04/05/20 07:46 04/05/20 07:46 04/05/20 07:46 04/05/20 09:20 Oxygen Flow Rate (L/min) 2 Oxygen Delivery Method Room Air Weight: 252 lb 3.2 oz Body Mass Index (BMI) 41.1 Finger Stick Blood Glucose 115 Intake and Output for Last 24 Hours 04/03/20 04/04/20 04/05/20 23:59 23:59 23:59 Intake Total 1975 / 2225 650.00 / 650.00 100 / 100 Output Total 3075 / 4975 3250 / 3250 825 / 825 Balance -1100 / -2750 -2600.00 / -2600.00 -725 / -725 General: Alert, Oriented x3, Cooperative HEENT: Atraumatic, PERRLA, EOMI, Normocephalic Neck: Supple, No JVD, Negative Carotid Bruits Lungs: Clear to auscultation, Normal air movement, No rhonchi, No wheeze, No rales Cardiovascular: Regular rate, Regular Rhythm, Normal S1, Normal S2, No murmurs Abdomen: Bowel Sounds Present, Soft, Non Tender, Non-Distended Extremities: No edema, Capillary Refill Less than 3 Seconds Skin: Ulcer/ Wound - Right upper medial thigh abscess status post wound VAC drain Musculoskeletal: No Tenderness to Palpation of Joints or Extremities, Arthritic Changes Neurological: Cranial nerves II-XII grossly intact, Deep Tendon Reflexes 2+/4 and Symmetrical, Neuro grossly intact Psych/Mental Status: Normal Affect, Appropriate Microbiology Past 72 Hours 04/02/20 16:30 Wound Abcess - Leg, Right Gram Stain - Final 04/02/20 16:30 Wound Abcess - Leg, Right Wound Culture - Preliminary GPC Poss Enterococcus sp 04/03/20 13:41 Tissue - Leg, Right Gram Stain - Final 04/03/20 13:41 Tissue - Leg, Right Wound Culture - Preliminary No growth-Final to follow 04/03/20 13:41 Tissue - Leg, Right Anaerobic Culture - Preliminary No growth in 48 hours. 04/03/20 08:20 Mucosa - Nasopharyngeal Coronavirus COVID-19 PCR - Final Laboratory Results 04/04/20 10:39: POC Glucose 222 H 04/04/20 15:58: POC Glucose 136 H 04/04/20 21:04: POC Glucose 171 H 04/05/20 06:30: POC Glucose 154 H 04/05/20 06:37: WBC 14.1 H, RBC 4.29, Hgb 13.1, Hct 40.6, MCV 94.6, MCH 30.5, MCHC 32.3, RDW Std Deviation 47.2 H, RDW Coeff of Mark 13.5, Plt Count 252, MPV 10.0, Immature Gran % (Auto) 0.500, Neut % (Auto) 72.0 H, Lymph % (Auto) 17.8 L, [place] % (Auto) 7.2, Eos % (Auto) 2.0, Baso % (Auto) 0.5, Absolute Neuts (auto) 10.2 H, Absolute Lymphs (auto) 2.51, Nucleated RBC % 0 Current Medications Acetaminophen (Tylenol) 650 mg PO Q6H PRN PRN PRN Reason: Pain Score 1-10/Temp > 100.7 F Last Admin: 04/03/20 15:16 Dose: 650 mg Documented by: Al Hydroxide/Mg Hydroxide (Mylanta Ii) 30 ml PO Q6H PRN PRN PRN Reason: Gastric Burning Albuterol Sulfate (Ventolin Aerosols) 2.5 mg INHALATION Q4H PRN PRN PRN Reason: SOB &/OR WHEEZING Amitriptyline HCl (Elavil) 10 mg PO QHS [facility] Last Admin: 04/04/20 21:16 Dose: 10 mg Documented by: Amlodipine Besylate (Norvasc) 10 mg PO DAILY [facility] Last Admin: 04/05/20 10:16 Dose: 10 mg Documented by: Atorvastatin Calcium (Lipitor) 10 mg PO QHS [facility] Last Admin: 04/04/20 21:16 Dose: 10 mg Documented by: Benzonatate (Tessalon Perle) 100 mg PO BID PRN PRN PRN Reason: COUGH Cyclobenzaprine HCl (Flexeril) 10 mg PO TID PRN PRN PRN Reason: muscle spasms Dextrose (D50w Syringe) 0 gm IV X1 PRN; Protocol PRN Reason: Hypoglycemia Diazepam (Valium) 5 mg PO 4X/DAY PRN PRN PRN Reason: SPASMS Enoxaparin Sodium (Lovenox) 40 mg SC DAILY [facility] Last Admin: 04/05/20 10:15 Dose: 40 mg Documented by: Glucagon () 1 mg IM .X1 PRN PRN Reason: Hypoglycemia Hydralazine HCl (Apresoline Iv) 10 mg IV Q4H PRN PRN PRN Reason: SBP more than 180 mmHg Last Admin: 04/03/20 16:51 Dose: 10 mg Documented by: Hydrochlorothiazide (Hctz) 25 mg PO DAILY [facility] Last Admin: 04/05/20 10:15 Dose: 25 mg Documented by: Piperacillin Sod/Tazobactam (Sod 3.375 gm/ Sodium Chloride) 50 mls @ 12.5 mls/hr IV Q8 [facility] Last Infusion: 04/05/20 09:32 Dose: Infused Documented by: Sodium Chloride () 250 mls @ 15 mls/hr IV [id number] PRN PRN Reason: Saline Flush Insulin Human Lispro (Humalog Kwikpen (Bkc)) 0 unit SC ACHS [facility]; Protocol Last Admin: 04/05/20 06:31 Dose: 2 u Documented by: Melatonin (Melatonin) 3 mg PO QHS PRN PRN PRN Reason: INSOMNIA Morphine Sulfate () 2 mg IV Q3H PRN PRN PRN Reason: Pain Score 6-10/10 Oxycodone HCl (Oxyir) 5 mg PO Q4H PRN PRN PRN Reason: Pain Score 4-5/10 [facility]assium Ch[facility] ([facility]) [facility] Last Admin: 04/05/20 07:58 Dose: 20 meq Documented by: Prochlorperazine Edisylate (Compazine Iv) 5 mg IV Q4H PRN PRN PRN Reason: Breakthrough nausea/vomiting Promethazine HCl (Phenergan) 12.5 mg IV Q6H PRN PRN PRN Reason: Breakthrough nausea/vomiting Sodium Chloride () 10 - 40 ml IV UD PRN PRN Reason: SALINE FLUSH Last Admin: 04/04/20 21:08 Dose: 10 ml Documented by: Discharge Activity: May Not Drive Weight Bearing Status: Weight bearing as tolerated Call your doctor if you observe: Fever of 101 or Higher, Numbness or Tingling, Inability to urinate, Inability to have a bowel movement, Using more than one pad per hour, Shortness of breath, Fainting spells, Chest pain, Prolonged hiccoughing, Increased palpitations (irregular heartbeat), Calf discomfort, Uncontrolled pain Home Medications: Medications to take at Discharge Amitriptyline HCl [Elavil] 10 mg PO QHS 12/12/16 Amlodipine [Norvasc] 10 mg PO DAILY 02/06/17 cycloBENZAPRine HCl [Flexeril] 10 mg PO TID PRN PRN 02/06/17 Atorvastatin Calcium [Lipitor] 10 mg PO QHS 06/12/17 Albuterol Inhaler [Ventolin Hfa] 1 - 2 puff INHALATION Q4H PRN PRN #1 inhaler 08/25/19 benzonatate 100 mg capsule 100 mg PO BID PRN 11/22/19 Acetaminophen [Tylenol Arthritis] 1,300 mg PO DAILY PRN PRN 04/02/20 Amox/Clavulanate Tablet [Augmentin Tablet] 875 mg PO Q12H #14 tab 04/05/20 Diazepam [Valium] 5 mg PO 4X/DAY 7 Days #28 tab 04/05/20 Glipizide [Glipizide ER] 5 mg PO BREAKFAST #30 tab.er.24 04/05/20 Hydrochlorothiazide [Hctz] 25 mg PO DAILY #30 tab 04/05/20 Metformin HCl 500 mg PO BID #60 tab 04/05/20 Oxycodone HCl/Acetaminophen [Percocet 5/325] 1 tab PO Q4H PRN PRN 7 Days #40 tab 04/05/20 Potassium Chloride [K-Dur] 20 meq PO DAILYCM #30 tab 04/05/20 Following Prescrptions Were Given to Patient: Amox/Clavulanate Tablet [Augmentin Tablet] 875 mg PO Q12H #14 tab Transmission Status: Received by [facility] #30 Glipizide [Glipizide ER] 5 mg PO BREAKFAST #30 tab.er.24 Transmission Status: Received by [facility]30 Hydrochlorothiazide [Hctz] 25 mg PO DAILY #30 tab Transmission Status: Received by [facility]30 Potassium Chloride [K-Dur] 20 meq PO DAILYCM #30 tab Transmission Status: Received by [facility]30 Metformin HCl 500 mg PO BID #60 tab Transmission Status: Received by [facility] Oxycodone HCl/Acetaminophen [Percocet 5/325] 1 tab PO Q4H PRN PRN 7 Days #40 tab PRN Reason: Pain Transmission Status: Received by [facility] Diazepam [Valium] 5 mg PO 4X/DAY 7 Days #28 tab Transmission Status: Received by [facility] Primary Care Physician: Lamberto Rogers MD [Primary Care Provider] - Please follow up with your Primary Care Physician in: in 1-2 week Please Follow Up With: Bradley Rojas MD When: prn for right thigh abscess Medical Necessity - Tobacco Use Smoking Status: Current every day smoker Tobacco Use: Cigarettes Meaningful Use Info Meaningful Use Diagnoses (Choose all that apply): None applicable Inpatient E&M: [id number] [facility]
[2020-04-05 11:15] LABS: Bedside Glucose 219 mg/dL (70-110)
--- NOTE | 2020-04-05 11:40 | PN.SURG_ITS ---
Patient Problems: Active and Suspected Problems (Last Reviewed 10/05/19 @ 13:42 by Syl Fischer) Abscess of right thigh (Acute) Subjective: Post op day #2 for Surgical preparation right upper medial thigh with incision and drainage and excisional debridement diabetic abscess (65 cm2). Objective: Patient is resting in bed comfortably. She denies any complaints at this time. - Physical Exam Vitals/I&O's: Vital Signs Temp Pulse Resp BP Pulse Ox 98.4 F 92 16 138/70 H 94 04/05/20 07:46 04/05/20 07:46 04/05/20 07:46 04/05/20 07:46 04/05/20 09:20 Oxygen Flow Rate (L/min) 2 Oxygen Delivery Method Room Air Weight: 252 lb 3.2 oz Body Mass Index (BMI) 41.1 Finger Stick Blood Glucose 115 Intake and Output for Last 24 Hours 04/03/20 04/04/20 04/05/20 23:59 23:59 23:59 Intake Total 1975 / 2225 650.00 / 650.00 100 / 100 Output Total 3075 / 4975 3250 / 3250 825 / 825 Balance -1100 / -2750 -2600.00 / -2600.00 -725 / -725 General: Alert, Oriented x3, Cooperative HEENT: Atraumatic Oral: Moist Mucosa Lungs: Normal air movement Cardiovascular: Regular rate Abdomen: Obese Extremities: Capillary Refill Less than 3 Seconds Skin: Ulcer/ Wound - Right upper medial thigh wound VAC dressing in place. Musculoskeletal: No Tenderness to Palpation of Joints or Extremities Neurological: Neuro grossly intact Psych/Mental Status: Normal Affect, Appropriate Microbiology Past 72 Hours 04/02/20 16:30 Wound Abcess - Leg, Right Gram Stain - Final 04/02/20 16:30 Wound Abcess - Leg, Right Wound Culture - Preliminary GPC Poss Enterococcus sp 04/03/20 13:41 Tissue - Leg, Right Gram Stain - Final 04/03/20 13:41 Tissue - Leg, Right Wound Culture - Preliminary No growth-Final to follow 04/03/20 13:41 Tissue - Leg, Right Anaerobic Culture - Preliminary No growth in 48 hours. 04/03/20 08:20 Mucosa - Nasopharyngeal Coronavirus COVID-19 PCR - Final Laboratory Results 04/04/20 10:39: POC Glucose 222 H 04/04/20 15:58: POC Glucose 136 H 04/04/20 21:04: POC Glucose 171 H 04/05/20 06:30: POC Glucose 154 H 04/05/20 06:37: WBC 14.1 H, RBC 4.29, Hgb 13.1, Hct 40.6, MCV 94.6, MCH 30.5, MCHC 32.3, RDW Std Deviation 47.2 H, RDW Coeff of Mark 13.5, Plt Count 252, MPV 10.0, Immature Gran % (Auto) 0.500, Neut % (Auto) 72.0 H, Lymph % (Auto) 17.8 L, Trigg % (Auto) 7.2, Eos % (Auto) 2.0, Baso % (Auto) 0.5, Absolute Neuts (auto) 10.2 H, Absolute Lymphs (auto) 2.51, Nucleated RBC % 0 04/05/20 11:09: POC Glucose 219 H Current Medications Acetaminophen (Tylenol) 650 mg PO Q6H PRN PRN PRN Reason: Pain Score 1-10/Temp > 100.7 F Last Admin: 04/03/20 15:16 Dose: 650 mg Documented by: Al Hydroxide/Mg Hydroxide (Mylanta Ii) 30 ml PO Q6H PRN PRN PRN Reason: Gastric Burning Albuterol Sulfate (Ventolin Aerosols) 2.5 mg INHALATION Q4H PRN PRN PRN Reason: SOB &/OR WHEEZING Amitriptyline HCl (Elavil) 10 mg PO QHS PENDING SALE TO [facility] Last Admin: 04/04/20 21:16 Dose: 10 mg Documented by: Amlodipine Besylate (Norvasc) 10 mg PO DAILY PENDING SALE TO [facility] Last Admin: 04/05/20 10:16 Dose: 10 mg Documented by: Atorvastatin Calcium (Lipitor) 10 mg PO QHS PENDING SALE TO [facility] Last Admin: 04/04/20 21:16 Dose: 10 mg Documented by: Benzonatate (Tessalon Perle) 100 mg PO BID PRN PRN PRN Reason: COUGH Cyclobenzaprine HCl (Flexeril) 10 mg PO TID PRN PRN PRN Reason: muscle spasms Dextrose (D50w Syringe) 0 gm IV X1 PRN; Protocol PRN Reason: Hypoglycemia Diazepam (Valium) 5 mg PO 4X/DAY PRN PRN PRN Reason: SPASMS Enoxaparin Sodium (Lovenox) 40 mg SC DAILY PENDING SALE TO [facility] Last Admin: 04/05/20 10:15 Dose: 40 mg Documented by: Glucagon () 1 mg IM .X1 PRN PRN Reason: Hypoglycemia Hydralazine HCl (Apresoline Iv) 10 mg IV Q4H PRN PRN PRN Reason: SBP more than 180 mmHg Last Admin: 04/03/20 16:51 Dose: 10 mg Documented by: Hydrochlorothiazide (Hctz) 25 mg PO DAILY PENDING SALE TO [facility] Last Admin: 04/05/20 10:15 Dose: 25 mg Documented by: Piperacillin Sod/Tazobactam (Sod 3.375 gm/ Sodium Chloride) 50 mls @ 12.5 mls/hr IV Q8 PENDING SALE TO [facility] Last Infusion: 04/05/20 09:32 Dose: Infused Documented by: Sodium Chloride () 250 mls @ 15 mls/hr IV .[id number] PRN PRN Reason: Saline Flush Insulin Human Lispro (Humalog Kwikpen (Bkc)) 0 unit SC [facility]; Protocol Last Admin: 04/05/20 11:11 Dose: 4 u Documented by: Melatonin (Melatonin) 3 mg PO QHS PRN PRN PRN Reason: INSOMNIA Morphine Sulfate () 2 mg IV Q3H PRN PRN PRN Reason: Pain Score 6-10/10 Oxycodone HCl (Oxyir) 5 mg PO Q4H PRN PRN PRN Reason: Pain Score 4-5/10 Potassium Ch[facility] ([facility]-Dur) [facility] Last Admin: 04/05/20 07:58 Dose: 20 meq Documented by: Prochlorperazine Edisylate (Compazine Iv) 5 mg IV Q4H PRN PRN PRN Reason: Breakthrough nausea/vomiting Promethazine HCl (Phenergan) 12.5 mg IV Q6H PRN PRN PRN Reason: Breakthrough nausea/vomiting Sodium Chloride () 10 - 40 ml IV UD PRN PRN Reason: SALINE FLUSH Last Admin: 04/04/20 21:08 Dose: 10 ml Documented by: Medical Necessity - Tobacco Use Smoking Status: Current every day smoker Tobacco Use: Cigarettes Assessment/Plan All Active Problems (Last Reviewed 10/05/19 @ 13:42 by Syl Fischer) Abscess of right thigh (Acute) Small bowel ileus (Resolved) Dizziness (Resolved) UTI (urinary tract infection) (Resolved) 1. Diabetic Abscess of right medial thigh - Wound VAC in place- will continue once she is discharged. Discharge is planned for later today. - She will follow up in the [facility] 04/16/20 -Prescriptions written for pain, Percocet (40) and muscle spasm,Valium (30). - Continue Augmentin for Enterococcus sp (preliminary cultures- may need to italo nge antibiotics when the final culture results are in. 2. Smoker -Encouraged to stop smoking as it may be deleterious to wound healing.
--- NOTE | 2020-04-05 12:00 | CASEMGMT ---
DORINA LANCASTER sent referral to [facility] for HHC. They are able to accept the patient. DORINA LANCASTER updated patient and she is agreeable to [facility]. DORINA LANCASTER updated [facility] regarding HHC setup. DORINA LANCASTER updated wound nurse.
[2020-04-05 14:33] VITALS: BP 140/66; PULSE 94; RESP 16; TEMP 36.8; O2SAT 94
--- NOTE | 2020-04-06 16:57 | CASEMGMT ---
DORINA LANCASTER Discharge Follow-up Phone Call: RUPAL: 13 Strata: 3 Call Date: 04/06/20 Discharge Date: 04/05/20 Time of Call: 1655 Duration: 1 min Admitting Diagnosis: thigh abscess DORINA LANCASTER attempted to complete follow-up phone call after recent hospitalization. No answer, unable to leave message. Patient was setup with [facility] for vac changes.
--- OUTSIDE RECORDS SUMMARY | 2020-08-28 12:33 | XMS RPT_ITS | CCD ---
:1960 External Reference #:[id number] Author Organization [employer] Care Team Providers Name Role Phone mySugr Unavailable Unavailable NO REFERRING DR Mcdermott Unavailable DENISE SEGURA Unavailable Unavailable Carly Rogers Primary Care Provider Allergies Reported Allergen Reaction(s) Severity Date of Onset Location enalapril Translations: [ Cough 01-17-2013 - [facility] ENALAPRIL] System Reposito ry Medications Medication Name Sig Date Prescriber Location Acetaminophen acetaminophen (TYLENOL 01-29-2017 [facility] EXTRA STRENGTH) [address] (4419 5) tablet Indications: Chronic pain of left knee , Pain in right hip Take 1 tablet by mouth every 6 hours as needed for Pain. 120 tablet 2 01/29/2017 Active Comment: Take 1 tablet by mouth every 6 hours as needed for Pain. Amitriptyline amitriptyline (ELAVIL) 06-19-2020 [facility] 10 mg tablet (43664) Indications: Depression, major, recurrent, mild (HCC) Take 1 tablet by mouth daily at bedtime. 30 tablet 5 06/19/2020 Active Comment: Take 1 tablet by mouth daily at bedtime. amLODIPine amLODIPine (NORVASC) 03-26-2020 [facility] mg tablet Indications: (4419 5) Essential hypertension Take 1 tablet by mouth once daily. 30 tablet 03/26/2020 Active Comment: Take 1 tablet by mouth once daily. atorvastatin atorvastatin (LIPITOR) 05-21-2020 [facility] 10 mg tablet (03995) Indications: Mixed hyperlipidemia Take 1 tablet by mouth once daily. 30 tablet 11 05/21/2020 Active Comment: Take 1 tablet by mouth once daily. benzonatate benzonatate (TESSALON 07-30-2020 Carly Manuel [facility] PERLMAMI) 100 mg capsule (4419 5) Indications: Cough Take 1 capsule by mouth three times daily as needed for Cough. 30 capsule 2 07/30/2020 Active benzonatate (TESSALON 03-23-2020 - [facility]) 100 mg capsule 07-30-2020 (97024) Indications: Cough Take 1 capsule by mouth three times daily as needed for Cough. 30 capsule 2 03/23/2020 07/30/2020 Discontinued Comment: Take 1 capsule by mouth thre e times daily as needed for Cough. Cephalexin cephALEXin (KEFLEX) 500 mg 08-25-2019 [facility] Provider C [facility] (47533) capsule EVERY 6 HOURS 0 08/25/2019 Active Comment: EVERY 6 HOURS COMPOUNDED COMPOUNDED 09-16-2019 [facility] PRESCRIPTION PRESCRIPTION [employer] (77487) AirCurve 10 S VPAP machine with heated humidity and heated tubing. Pressure set to 22/16 cm H2O. [facility]. 0 09/16/2019 Active COMPOUNDED PRESCRIPTION [facility] 09-16-2019 Carly [facility] (09819) AirCurve 10 S VPAP machine with heated humidity and heated tubing. Pressure set to 22/16 cm H2O. [employer]. 0 09/16/2019 Active COMPOUNDED PRESCRIPTION [facility] 09-16-2019 Carly [facility] (53036) AirCurve 10 S VPAP machine with heated humidity and heated tubing. Pressure set to 22/16 cm H2O. [employer]. 0 09/16/2019 Active COMPOUNDED PRESCRIPTION [facility] 09-16-2019 Carly [facility] (12299) AirCurve 10 S VPAP machine with heated humidity and heated tubing. Pressure set to 22/16 cm H2O. [facility] [employer]. 0 09/16/2019 Active COMPOUNDED PRESCRIPTION [employer] 09-16-2019 Carly [facility] ([id number]) AirCurve 10 S VPAP machine with heated humidity and heated tubing. Pressure set to 22/16 cm H2O. [facility] [employer]. 0 09/16/2019 Active Comment: [employer] AirCurve 10 S VPAP ma elsa with heated humidity and heated tubing. Pressure set to 22/16 cm H2O . [employer] [employer]. cyclobenzaprine cyclobenzaprine 08-24-2019 - Carly Manuel [place] (FLEXERIL) 10 mg 08-20-2020 [facility] (441 95) tablet Indications: Muscle cramps Take 1 tablet by mouth three times daily as needed. 30 tablet 5 08/20/2020 Active Comment: Take 1 tablet by mouth three times daily as needed. dulaglutide dulaglutide (TRULICITY) 04-19-2020 [facility] 0.75 mg/0.5 mL pnij (98787) Indications: Type 2 diabetes mellitus without complication, without long-term current use of insulin (HCC) Inject 0.75 mg subcutaneously one time a week. Inject dose once per week. Discard Pen After 4 Pen 5 04/19/2020 Active Comment: Inject 0.75 mg subcutaneousl y one time a week. Inject dose once per week. Discard Pen After telmisartan telmisartan (MICARDIS) 05-23-2020 C[facility] Manuel [facility] 40 mg tablet Take 1 (74958) tablet by mouth once daily. 30 tablet 5 05/23/2020 Active Comment: Take 1 tablet by mouth once daily. Problems Active Problems Category Problem Name Status Date Location Cardiac dysrhythmias Sick sinus syndrome Active 08-24-2019 - [facility] (07672) Conduction disorders Cardiac pacemaker in Active 08-24-2019 - [facility] situ (98781) Diabetes mellitus Type 2 diabetes Active 03-29-2013 - [facility] without complication mellitus without [facility] System complications (66808) Disorders of lipid Hyperlipidemia, Active 03-29-2013 - [facility] metabolism unspecified [facility] (99667) Essential hypertension Essential (primary) Active 03-29-2013 - [facility] hypertension [facility] (61605) Mood disorders Bipolar disorder, Active 12-21-2016 - [facility] (52736) Nutritional deficiencies Vitamin D deficiency Active [facility] (64760) Osteoarthritis Unilateral primary Active 09-06-2015 - [facility] osteoarthritis, right [facility] hip (93412) Other connective tissue 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-2016 - [facility] disease artificial hip joint [facility] (60157) Other connective tissue Cramp Active [facility] disease (34583) Other inflammatory Rosacea Active 03-28-2013 - [facility] condition of skin (26750) Other lower respiratory Cough Active [facility] disease (99691) Other nervous system Other chronic pain Active 12-21-2016 - [facility] (35419) Other nervous system Sural neuropathy Active 06-02-2015 - [facility] disorders (05049) Other nutritional; Morbid obesity Active 09-19-2019 - [facility] endocrine; and metabolic (44 195) disorders Other nutritional; Obesity Active 03-29-2013 - [facility] endocrine; and metabolic (44 195) disorders Residual codes; Obstructive sleep apnea Active 08-24-2019 - C [facility] unclassified syndrome (04273) Schizophrenia and other Schizophrenia, Active 12-21-2016 - [facility] psychotic disorders unspecified [facility] (65851) Past or Other Problems Category Problem Name Status Date Location Other inflammatory Seborrheic Completed 03-28-2013 - [facility] condition of skin dermatitis (17779) Other non-traumatic Pain in right hip Completed 12-21-2016 - [facility] joint disorders [facility] m (23030) Other screening for Magnetic resonance Completed 07-09-2017 - [facility] suspected conditions imaging of brain (44 195) (not mental disorders abnormal or infectious disease) Results Result Name Value Range Unit Interpretation Flag Date Location obsolete on 2020-08 OBSOLETE Refill (FAMPWS) Normal 08-20-2020 [facility] ABE STEVENSON ([id number]) 1960 [facility] Time Provider Department ([id number]) 08/20/20 CARLY ROGERS During your visit today, we recorded the following informati on about you: Adriana Haider Ma 08/20/2020 10:44 AM Signed Last office visit: 04/19/2020 F/u scheduled: no follow up Adriana Rogers MD 08/20/2020 10:49 AM Signed OK to refill as ordered MD Adriana Lance Ma 08/20/2020 11:45 AM Signed The following approved medic ation requests have been transmitted electronically. Signed Prescriptions Disp Refills cyclobenzaprine (FLEXERIL) 10 mg tablet 30 tablet 5 Sig: Take 1 tablet by mouth three times daily as needed. ASHLEY: No Authorizing Provider: CARLY ROGERS Ma Allergies As of Date: 08/20/2020 Noted Allergy Reaction ENALAPRIL 01/17/2013 3 - Cough Date Reviewed: 04/19/2020 Reviewed by: Macie Lloyd MA - Fully Assessed Reason for Visit: Refill Request [94] Visit Diagnosis:Muscle cramps [R25.2] Order(s):cyclobenzaprine (FLEXERIL) 10 mg tabletTake 1 tablet by mouth three times daily as needed.Disp: 30 tabletRfl: 5 Prescriptions as of 08/20/2020 Sig: CYCLOBENZAPRINE 10 MG TABLET Take 1 tablet by mouth three * BENZONATATE 100 MG CAPSULE Take 1 capsule by mouth three* AMITRIPTYLINE 10 MG TABLET Take 1 tablet by mouth daily * TELMISARTAN 40 MG TABLET Take 1 tablet by mouth once d* ATORVASTATIN 10 MG TABLET Take 1 tablet by mouth once d* TRULICITY 0.75 MG/0.5 ML SUBC* Inject 0.75 mg subcutaneously * LANCETS Test blood sugar(s) 1 times d* BLOOD SUGAR DIAGNOSTIC STRIPS Test blood sugar(s) 1 times d* AMLODIPINE 10 MG TABLET Take 1 tablet by mouth once d* CEPHALEXIN 500 MG CAPSULE EVERY 6 HOURS COMPOUNDED PRESCRIPTION [employer] AirCurve 10 S VPAP mac* ACETAMINOPHEN 500 MG TABLET Take 1 tablet by mouth every * Problem List As Of Date 08/20/2020 Noted Resolved Seborrheic dermatitis [L21.9] 03/28/2013 Rosacea [L71.9] 03/28/2013 Type 2 diabetes mellitus without complication, *03/29/2013 HTN (hypertension) [I10] 03/29/2013 Hyperlipidemia [E78.5] 03/29/2013 Obesity [E66.9] 03/29/2013 Family history of colon cancer [Z80.0] 04/17/2020 More... Family history of premature coronary artery dis* 04/17/2020 More... History of colon polyps [Z86.010] 03/07/2013 04/17/2020 Vitamin D deficiency [E55.9] Anal fissure [K60.2] 07/31/2014 04/17/2020 Abdominal pain, unspecified site [R10.9] 05/12/2015 04/17/20 20 Arthritis, hip [M16.10] 04/17/2020 Sural neuropathy [G57.90] 06/02/2015 Right leg pain [M79.604] 06/07/2015 04/17/2020 Skin lesion, superficial [L98.9] 06/15/2015 04/17/2020 Primary osteoarthritis of right hip [M16.11] 09/06/2015 Abnormal brain MRI [R90.89] 07/09/2017 Peripheral polyneuropathy [G62.9] 07/09/2017 04/17/2020 Pacemaker [Z95.0] 08/24/2019 Sick sinus syndrome (HCC) [I49.5] 08/24/2019 CT (obstructive sleep apnea) [G47.33] 08/24/2019 Obesity, Class III, BMI >= 40 [E66.01] 09/19/2019 Mild episode of recurrent major depressive diso*04/17/2020 Prescriptions ordered this encounter Disp Refills Start End CYCLOBENZAPRINE 10 MG TABLET 30 t* 5 08/20/2020 Route: ORAL Sig: Take 1 tablet by mouth three times daily as needed. Medications Discontinued During This Encounter Prescriptions - cyclobenzaprine (FLEXERIL) 10 mg tablet (Discontinued) Take 1 tablet by mouth three times daily as needed. Encounter Status:Closed by ADRIANA HAIDER MA on 08/20/20 obsolete on 2020-07 OBSOLETE Refill (FAMPWS) Normal 07-30-2020 [facility] ABE [facility]e ([id number]) 1960 [facility] Date Time Provider Department ([id number]) 07/30/20 CARLY ROGERS FAMPWS During your visit today, we recorded the following informati on about you: Carly Rogers MD 07/30/2020 9:47 AM Signed OK to refill as ordered MD Adriana Lance Ma 07/30/2020 9:58 AM Signed The following approved medic ation requests have been transmitted electronically. Signed Prescriptions Disp Refills benzonatate (TESSALON PERLES) 100 mg capsule 30 capsule 2 Sig: Take 1 capsule by mouth three times daily as needed for Cough. ASHLEY: No Authorizing Provider: CARLY ROGERS Ma Allergies As of Date: 07/30/2020 Noted Allergy Reaction ENALAPRIL 01/17/2013 3 - Cough Date Reviewed: 04/19/2020 Reviewed by: Macie Lloyd MA - Fully Assessed Reason for Visit: Refill Request [94] Visit Diagnosis:Cough [R05] Order(s):benzonatate (TESSALON PERLES) 100 mg capsuleT rafqi 1 capsule by mouth three times daily as needed for Cough.Disp: 30 capsuleRfl: 2 Prescriptions as of 07/30/2020 Sig: BENZONATATE 100 MG CAPSULE Take 1 capsule by mouth three* AMITRIPTYLINE 10 MG TABLET Take 1 tablet by mouth daily * TELMISARTAN 40 MG TABLET Take 1 tablet by mouth once d* ATORVASTATIN 10 MG TABLET Take 1 tablet by mouth once d* TRULICITY 0.75 MG/0.5 ML SUBC* Inject 0.75 mg subcutaneously * LANCETS Test blood sugar(s) 1 times d* BLOOD SUGAR DIAGNOSTIC STRIPS Test blood sugar(s) 1 times d* AMLODIPINE 10 MG TABLET Take 1 tablet by mouth once d* CEPHALEXIN 500 MG CAPSULE EVERY 6 HOURS COMPOUNDED PRESCRIPTION ResMed AirCurve 10 S VPAP mac* CYCLOBENZAPRINE 10 MG TABLET Take 1 tablet by mouth three * ACETAMINOPHEN 500 MG TABLET Take 1 tablet by mouth every * Problem List As Of Date 07/30/2020 Noted Resolved Seborrheic dermatitis [L21.9] 03/28/2013 Rosacea [L71.9] 03/28/2013 Type 2 diabetes mellitus without complication, *03/29/2013 HTN (hypertension) [I10] 03/29/2013 Hyperlipidemia [E78.5] 03/29/2013 Obesity [E66.9] 03/29/2013 Family history of colon cancer [Z80.0] 04/17/2020 More... Family history of premature coronary artery dis* 04/17/2020 More... History of colon polyps [Z86.010] 03/07/2013 04/17/2020 Vitamin D deficiency [E55.9] Anal fissure [K60.2] 07/31/2014 04/17/2020 Abdominal pain, unspecified site [R10.9] 05/12/2015 04/17/20 20 Arthritis, hip [M16.10] 04/17/2020 Sural neuropathy [G57.90] 06/02/2015 Right leg pain [M79.604] 06/07/2015 04/17/2020 Skin lesion, superficial [L98.9] 06/15/2015 04/17/2020 Primary osteoarthritis of right hip [M16.11] 09/06/2015 Abnormal brain MRI [R90.89] 07/09/2017 Peripheral polyneuropathy [G62.9] 07/09/2017 04/17/2020 Pacemaker [Z95.0] 08/24/2019 Sick sinus syndrome (HCC) [I49.5] 08/24/2019 CT (obstructive sleep apnea) [G47.33] 08/24/2019 Obesity, Class III, BMI >= 40 [E66.01] 09/19/2019 Mild episode of recurrent major depressive diso*04/17/2020 Prescriptions ordered this encounter Disp Refills Start End BENZONATATE 100 MG CAPSULE 30 c* 2 07/30/2020 Route: ORAL Sig: Take 1 capsule by mouth three times daily as needed for Cough. Medications Discontinued During This Encounter Prescriptions - benzonatate (TESSALON PERLES) 100 mg capsule (Discontinued ) Take 1 capsule by mouth three times daily as needed for Coug h. Encounter Status:Closed by ADRIANA HAIDER MA on 07/30/20 cnco on 2020-07-24 [facility] Letter Text Normal 07-24-2020 [facility] ([id number]) obsolete on 2020-06 OBSOLETE Refill (FAMPWS) Normal 06-19-2020 [facility] ABE STEVENSON ([id number]) 1960 [facility] Date Time Provider Department ([id number]) 06/19/20 CARLY ROGERS During your visit today, we recorded the following informati on about you: Carly Rogers MD 06/19/2020 4:12 PM Signed OK to refill as ordered MD Adriana Lance Ma 06/19/2020 4:28 PM Signed The following approved medic ation requests have been transmitted electronically. Signed Prescriptions Disp Refills amitriptyline (ELAVIL) 10 mg tablet 30 tablet 5 Sig: Take 1 tablet by mouth daily at bedtime. ASHLEY: No Authorizing Provider: CARLY ROGERS Ma Allergies As of Date: 06/19/2020 Noted Allergy Reaction ENALAPRIL 01/17/2013 3 - Cough Date Reviewed: 04/19/2020 Reviewed by: Macie Lloyd MA - Fully Assessed Reason for Visit: Refill Request [94] Visit Diagnosis:Depression, major, recurrent, mild (HCC) [F3 3.0] Order(s):amitriptyline (ELAVIL) 10 mg tabletTake 1 tablet by mouth daily at bedtime.Disp: 30 tabletRfl: 5 Prescriptions as of 06/19/2020 Sig: AMITRIPTYLINE 10 MG TABLET Take 1 tablet by mouth daily * TELMISARTAN 40 MG TABLET Take 1 tablet by mouth once d* ATORVASTATIN 10 MG TABLET Take 1 tablet by mouth once d* TRULICITY 0.75 MG/0.5 ML SUBC* Inject 0.75 mg subcutaneously * LANCETS Test blood sugar(s) 1 times d* BLOOD SUGAR DIAGNOSTIC STRIPS Test blood sugar(s) 1 times d* AMLODIPINE 10 MG TABLET Take 1 tablet by mouth once d* BENZONATATE 100 MG CAPSULE Take 1 capsule by mouth three* CEPHALEXIN 500 MG CAPSULE EVERY 6 HOURS COMPOUNDED PRESCRIPTION ResMed AirCurve 10 S VPAP mac* CYCLOBENZAPRINE 10 MG TABLET Take 1 tablet by mouth three * ACETAMINOPHEN 500 MG TABLET Take 1 tablet by mouth every * Problem List As Of Date 06/19/2020 Noted Resolved Seborrheic dermatitis [L21.9] 03/28/2013 Rosacea [L71.9] 03/28/2013 Type 2 diabetes mellitus without complication, *03/29/2013 HTN (hypertension) [I10] 03/29/2013 Hyperlipidemia [E78.5] 03/29/2013 Obesity [E66.9] 03/29/2013 Family history of colon cancer [Z80.0] 04/17/2020 More... Family history of premature coronary artery dis* 04/17/2020 More... History of colon polyps [Z86.010] 03/07/2013 04/17/2020 Vitamin D deficiency [E55.9] Anal fissure [K60.2] 07/31/2014 04/17/2020 Abdominal pain, unspecified site [R10.9] 05/12/2015 04/17/20 20 Arthritis, hip [M16.10] 04/17/2020 Sural neuropathy [G57.90] 06/02/2015 Right leg pain [M79.604] 06/07/2015 04/17/2020 Skin lesion, superficial [L98.9] 06/15/2015 04/17/2020 Primary osteoarthritis of right hip [M16.11] 09/06/2015 Abnormal brain MRI [R90.89] 07/09/2017 Peripheral polyneuropathy [G62.9] 07/09/2017 04/17/2020 Pacemaker [Z95.0] 08/24/2019 Sick sinus syndrome (HCC) [I49.5] 08/24/2019 CT (obstructive sleep apnea) [G47.33] 08/24/2019 Obesity, Class III, BMI >= 40 [E66.01] 09/19/2019 Mild episode of recurrent major depressive diso*04/17/2020 Prescriptions ordered this encounter Disp Refills Start End AMITRIPTYLINE 10 MG TABLET 30 t* 5 06/19/2020 Route: ORAL Sig: Take 1 tablet by mouth daily at bedtime. Medications Discontinued During This Encounter Prescriptions - amitriptyline (ELAVIL) 10 mg tablet (Discontinued) Take 1 tablet by mouth daily at bedtime. Encounter Status:Closed by ADRIANA HAIDER MA on 06/19/20 cnpn on 2020-06-15 CNPN Telephone (FAMPWS) Normal 06-15-2020 [place] [facility] ABE STEVENSON ([id number]) 1960 [address] [place] Date Time Provider Department ([id number]) 06/15/20 CARLY ROGERS During your visit today, we recorded the following informati on about you: Macie Lloyd MA 06/15/2020 8:42 AM Signed Received forms for pt from [facility], requesting verification of disability. Please review forms, complete, then fax back to [phone]. Macie Rogers MD 06/18/2020 5:11 PM Signed Form done MD Adriana Lance Ma 06/19/2020 9:58 AM Signed Faxed. Adriana Haider Ma Allergies As of Date: 06/15/2020 Noted Allergy Reaction ENALAPRIL 01/17/2013 3 - Cough Date Reviewed: 04/19/2020 Reviewed by: Macie Lloyd MA - Fully Assessed Reason for Visit: Forms [913] Prescriptions as of 06/15/2020 Sig: TELMISARTAN 40 MG TABLET Take 1 tablet by mouth once d* ATORVASTATIN 10 MG TABLET Take 1 tablet by mouth once d* TRULICITY 0.75 MG/0.5 ML SUBC* Inject 0.75 mg subcutaneously * LANCETS Test blood sugar(s) 1 times d* BLOOD SUGAR DIAGNOSTIC STRIPS Test blood sugar(s) 1 times d* AMLODIPINE 10 MG TABLET Take 1 tablet by mouth once d* BENZONATATE 100 MG CAPSULE Take 1 capsule by mouth three* CEPHALEXIN 500 MG CAPSULE EVERY 6 HOURS COMPOUNDED PRESCRIPTION ResMed AirCurve 10 S VPAP mac* AMITRIPTYLINE 10 MG TABLET Take 1 tablet by mouth daily * CYCLOBENZAPRINE 10 MG TABLET Take 1 tablet by mouth three * ACETAMINOPHEN 500 MG TABLET Take 1 tablet by mouth every * Problem List As Of Date 06/15/2020 Noted Resolved Seborrheic dermatitis [L21.9] 03/28/2013 Rosacea [L71.9] 03/28/2013 Type 2 diabetes mellitus without complication, *03/29/2013 HTN (hypertension) [I10] 03/29/2013 Hyperlipidemia [E78.5] 03/29/2013 Obesity [E66.9] 03/29/2013 Family history of colon cancer [Z80.0] 04/17/2020 More... Family history of premature coronary artery dis* 04/17/2020 More... History of colon polyps [Z86.010] 03/07/2013 04/17/2020 Vitamin D deficiency [E55.9] Anal fissure [K60.2] 07/31/2014 04/17/2020 Abdominal pain, unspecified site [R10.9] 05/12/2015 04/17/20 20 Arthritis, hip [M16.10] 04/17/2020 Sural neuropathy [G57.90] 06/02/2015 Right leg pain [M79.604] 06/07/2015 04/17/2020 Skin lesion, superficial [L98.9] 06/15/2015 04/17/2020 Primary osteoarthritis of right hip [M16.11] 09/06/2015 Abnormal brain MRI [R90.89] 07/09/2017 Peripheral polyneuropathy [G62.9] 07/09/2017 04/17/2020 Pacemaker [Z95.0] 08/24/2019 Sick sinus syndrome (HCC) [I49.5] 08/24/2019 CT (obstructive sleep apnea) [G47.33] 08/24/2019 Obesity, Class III, BMI >= 40 [E66.01] 09/19/2019 Mild episode of recurrent major depressive diso*04/17/2020 Encounter Status:Closed by ADRIANA HAIDER MA on 06/19/20 arnoldn on 2020-06-11 CNPN Telephone (FAMPWS) Normal 06-11-2020 [facility] ABE STEVENSON ([id number]) 1960 [place] Date Time Provider Department ([id number]) 06/11/20 CARLY ROGERS During your visit today, we recorded the following informati on about you: Bea Santana RN 06/11/2020 2:44 PM Signed Archana from [facility] tayla led, verified pt by name and birthdate. Archana relates that their company is changing computer system. Due to this change it will not show pt has an order for home care and she will need to place one for the pt. If PCP is willing to continue following pt for w ound care please call Archana and she will place order in the new system. Bea Rogers MD 06/11/2020 4:11 PM Signed I agree and will follow MD Adriana Lance Ma 06/11/2020 4:12 PM Signed Archana notified. Adriana Haider Ma Allergies As of Date: 06/11/2020 Noted Allergy Reaction ENALAPRIL 01/17/2013 3 - Cough Date Reviewed: 04/19/2020 Reviewed by: Macie Lloyd MA - Fully Assessed Reason for Visit: Home Care [4073] Prescriptions as of 06/11/2020 Sig: TELMISARTAN 40 MG TABLET Take 1 tablet by mouth once d* ATORVASTATIN 10 MG TABLET Take 1 tablet by mouth once d* TRULICITY 0.75 MG/0.5 ML SUBC* Inject 0.75 mg subcutaneously * LANCETS Test blood sugar(s) 1 times d* BLOOD SUGAR DIAGNOSTIC STRIPS Test blood sugar(s) 1 times d* AMLODIPINE 10 MG TABLET Take 1 tablet by mouth once d* BENZONATATE 100 MG CAPSULE Take 1 capsule by mouth three* CEPHALEXIN 500 MG CAPSULE EVERY 6 HOURS COMPOUNDED PRESCRIPTION ResMed AirCurve 10 S VPAP mac* AMITRIPTYLINE 10 MG TABLET Take 1 tablet by mouth daily * CYCLOBENZAPRINE 10 MG TABLET Take 1 tablet by mouth three * ACETAMINOPHEN 500 MG TABLET Take 1 tablet by mouth every * Problem List As Of Date 06/11/2020 Noted Resolved Seborrheic dermatitis [L21.9] 03/28/2013 Rosacea [L71.9] 03/28/2013 Type 2 diabetes mellitus without complication, *03/29/2013 HTN (hypertension) [I10] 03/29/2013 Hyperlipidemia [E78.5] 03/29/2013 Obesity [E66.9] 03/29/2013 Family history of colon cancer [Z80.0] 04/17/2020 More... Family history of premature coronary artery dis* 04/17/2020 More... History of colon polyps [Z86.010] 03/07/2013 04/17/2020 Vitamin D deficiency [E55.9] Anal fissure [K60.2] 07/31/2014 04/17/2020 Abdominal pain, unspecified site [R10.9] 05/12/2015 04/17/20 20 Arthritis, hip [M16.10] 04/17/2020 Sural neuropathy [G57.90] 06/02/2015 Right leg pain [M79.604] 06/07/2015 04/17/2020 Skin lesion, superficial [L98.9] 06/15/2015 04/17/2020 Primary osteoarthritis of right hip [M16.11] 09/06/2015 Abnormal brain MRI [R90.89] 07/09/2017 Peripheral polyneuropathy [G62.9] 07/09/2017 04/17/2020 Pacemaker [Z95.0] 08/24/2019 Sick sinus syndrome (HCC) [I49.5] 08/24/2019 CT (obstructive sleep apnea) [G47.33] 08/24/2019 Obesity, Class III, BMI >= 40 [E66.01] 09/19/2019 Mild episode of recurrent major depressive diso*04/17/2020 Encounter Status:Closed by ADRIANA HAIDER MA on 06/11/20 cnpn on 2020-05-23 CNPN Telephone (FAMPWS) Normal 05-23-2020 [facility] ABE STEVENSON ([id number]) 1960 [facility] Date Time Provider Department ([id number]) 05/23/20 CARLY ROGERS During your visit today, we recorded the following informati on about you: Carley Whiting PACO 05/23/2020 2:50 PM Signed today 162/88 pulse 88 slight headache in the morning. Headache relieved with Tylen ol. Taking amlodipine every morning . Patient had office visit [facility] Dr Carrero yesterday, she said no medications were changed. Patient is currently being treated with doxycycline for wound infection. No complaints of dizziness or chest pain. Has 1+ bilateral edema to lower legs states this is normal for patient. Not currently taking HCTZ. Carly Rogers MD 05/23/2020 3:38 PM Signed I would like to add Micardis as ordered to her amlodipine, a nd see if this helps with her BP MD Macie Lance MA 05/23/2020 3:50 PM Signed Called Kassandra and made her aware of all info below. 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 Macie Lloyd MA Allergies As of Date: 05/23/2020 Noted Allergy Reaction ENALAPRIL 01/17/2013 3 - Cough Date Reviewed: 04/19/2020 Reviewed by: Macie Lloyd MA - Fully Assessed Reason for Visit: BP reading [Other] Patient Update [1234] Reason For Visit History Recorded Order(s):telmisartan (MICARDIS) 40 mg tabletTake 1 tablet by mouth once daily.Disp: 30 tabletRfl: 5 Prescriptions as of 05/23/2020 Sig: TELMISARTAN 40 MG TABLET Take 1 tablet by mouth once d* ATORVASTATIN 10 MG TABLET Take 1 tablet by mouth once d* TRULICITY 0.75 MG/0.5 ML SUBC* Inject 0.75 mg subcutaneously * LANCETS Test blood sugar(s) 1 times d* BLOOD SUGAR DIAGNOSTIC STRIPS Test blood sugar(s) 1 times d* AMLODIPINE 10 MG TABLET Take 1 tablet by mouth once d* BENZONATATE 100 MG CAPSULE Take 1 capsule by mouth three* CEPHALEXIN 500 MG CAPSULE EVERY 6 HOURS COMPOUNDED PRESCRIPTION ResMed AirCurve 10 S VPAP mac* AMITRIPTYLINE 10 MG TABLET Take 1 tablet by mouth daily * CYCLOBENZAPRINE 10 MG TABLET Take 1 tablet by mouth three * ACETAMINOPHEN 500 MG TABLET Take 1 tablet by mouth every * Problem List As Of Date 05/23/2020 Noted Resolved Seborrheic dermatitis [L21.9] 03/28/2013 Rosacea [L71.9] 03/28/2013 Type 2 diabetes mellitus without complication, *03/29/2013 HTN (hypertension) [I10] 03/29/2013 Hyperlipidemia [E78.5] 03/29/2013 Obesity [E66.9] 03/29/2013 Family history of colon cancer [Z80.0] 04/17/2020 More... Family history of premature coronary artery dis* 04/17/2020 More... History of colon polyps [Z86.010] 03/07/2013 04/17/2020 Vitamin D deficiency [E55.9] Anal fissure [K60.2] 07/31/2014 04/17/2020 Abdominal pain, unspecified site [R10.9] 05/12/2015 04/17/20 20 Arthritis, hip [M16.10] 04/17/2020 Sural neuropathy [G57.90] 06/02/2015 Right leg pain [M79.604] 06/07/2015 04/17/2020 Skin lesion, superficial [L98.9] 06/15/2015 04/17/2020 Primary osteoarthritis of right hip [M16.11] 09/06/2015 Abnormal brain MRI [R90.89] 07/09/2017 Peripheral polyneuropathy [G62.9] 07/09/2017 04/17/2020 Pacemaker [Z95.0] 08/24/2019 Sick sinus syndrome (HCC) [I49.5] 08/24/2019 CT (obstructive sleep apnea) [G47.33] 08/24/2019 Obesity, Class III, BMI >= 40 [E66.01] 09/19/2019 Mild episode of recurrent major depressive diso*04/17/2020 Prescriptions ordered this encounter Disp Refills Start End TELMISARTAN 40 MG TABLET 30 t* 5 05/23/2020 Route: ORAL Sig: Take 1 tablet by mouth once daily. Encounter Status:Closed by MACIE LLOYD MA on 05/23/20 obsolete on 2020-07 -06 OBSOLETE Refill (FAMPWS) Normal 05-21-2020 [facility] GRAHAMABE FALK ([id number]) 1960 [facility] Date Time Provider Department ([id number]) 05/21/20 CARLY ROGERS During your visit today, we recorded the following informati on about you: Carly Rogers MD 05/21/2020 4:52 PM Signed OK to refill as ordered Carly Rogers MD Allergies As of Date: 05/21/2020 Noted Allergy Reaction ENALAPRIL 01/17/2013 3 - Cough Date Reviewed: 04/19/2020 Reviewed by: Macie Lloyd MA - Fully Assessed Reason for Visit: Refill Request [94] Visit Diagnosis:Mixed hyperlipidemia [E78.2] Order(s):atorvastatin (LIPITOR) 10 mg tabletTake 1 tablet by mouth once daily.Disp: 30 tabletRfl: 11 Prescriptions as of 05/21/2020 Sig: ATORVASTATIN 10 MG TABLET Take 1 tablet by mouth once d* TRULICITY 0.75 MG/0.5 ML SUBC* Inject 0.75 mg subcutaneously * LANCETS Test blood sugar(s) 1 times d* BLOOD SUGAR DIAGNOSTIC STRIPS Test blood sugar(s) 1 times d* AMLODIPINE 10 MG TABLET Take 1 tablet by mouth once d* BENZONATATE 100 MG CAPSULE Take 1 capsule by mouth three* CEPHALEXIN 500 MG CAPSULE EVERY 6 HOURS COMPOUNDED PRESCRIPTION ResMed AirCurve 10 S VPAP mac* AMITRIPTYLINE 10 MG TABLET Take 1 tablet by mouth daily * CYCLOBENZAPRINE 10 MG TABLET Take 1 tablet by mouth three * ACETAMINOPHEN 500 MG TABLET Take 1 tablet by mouth every * Problem List As Of Date 05/21/2020 Noted Resolved Seborrheic dermatitis [L21.9] 03/28/2013 Rosacea [L71.9] 03/28/2013 Type 2 diabetes mellitus without complication, *03/29/2013 HTN (hypertension) [I10] 03/29/2013 Hyperlipidemia [E78.5] 03/29/2013 Obesity [E66.9] 03/29/2013 Family history of colon cancer [Z80.0] 04/17/2020 More... Family history of premature coronary artery dis* 04/17/2020 More... History of colon polyps [Z86.010] 03/07/2013 04/17/2020 Vitamin D deficiency [E55.9] Anal fissure [K60.2] 07/31/2014 04/17/2020 Abdominal pain, unspecified site [R10.9] 05/12/2015 04/17/20 20 Arthritis, hip [M16.10] 04/17/2020 Sural neuropathy [G57.90] 06/02/2015 Right leg pain [M79.604] 06/07/2015 04/17/2020 Skin lesion, superficial [L98.9] 06/15/2015 04/17/2020 Primary osteoarthritis of right hip [M16.11] 09/06/2015 Abnormal brain MRI [R90.89] 07/09/2017 Peripheral polyneuropathy [G62.9] 07/09/2017 04/17/2020 Pacemaker [Z95.0] 08/24/2019 Sick sinus syndrome (HCC) [I49.5] 08/24/2019 CT (obstructive sleep apnea) [G47.33] 08/24/2019 Obesity, Class III, BMI >= 40 [E66.01] 09/19/2019 Mild episode of recurrent major depressive diso*04/17/2020 Prescriptions ordered this encounter Disp Refills Start End ATORVASTATIN 10 MG TABLET 30 t* 11 05/21/2020 Route: ORAL Sig: Take 1 tablet by mouth once daily. Medications Discontinued During This Encounter atorvastatin (LIPITOR) 10 mg tablet 30 t* 5 08/24/2019 05/21/20 Route: ORAL Sig: Take 1 tablet by mouth once daily. Disc: Reason for discontinue is not on file. Encounter Status:Closed by ADRIANA HAIDER MA on 05/21/20 cnpn on 2020-05-09 CNPN Telephone (FAMWS) Normal 05-09-2020 [place] [facility] ABE STEVENSON ([id number]) 1960 [place] Date Time Provider Department ([id number]) 05/09/20 CARLY ROGERS During your visit today, we recorded the following informati on about you: Renate Denis RN 05/09/2020 2:11 PM Signed Nurse Kassandra calls from [facility]. Did woun d care on patient's wound and patient was told on Thursday t hat she has MRSA in wound and this could affect VS. BP today 172/92 and later came down to 158/84. Bp last week was 188/104- reported 05/04/20. Patient took BP medications earlier today and did take Tylenol earlier today for headache but denied an y pain, headache or dizziness at nurse visit today. Please review and advise. Please call Kassandra at [phone] with any new orders. DORINA Tracey MD 05/09/2020 3:39 PM Signed Noted; continue to monitor at scheduled nurse visits MD Adriana Lance Ma 05/09/2020 4:06 PM Signed Kassandra notified. Adriana Haider Ma Allergies As of Date: 05/09/2020 Noted Allergy Reaction ENALAPRIL 01/17/2013 3 - Cough Date Reviewed: 04/19/2020 Reviewed by: Macie Lloyd MA - Fully Assessed Reason for Visit: blood pressure update [Other] Prescriptions as of 05/09/2020 Sig: TRULICITY 0.75 MG/0.5 ML SUBC* Inject 0.75 mg subcutaneously * LANCETS Test blood sugar(s) 1 times d* BLOOD SUGAR DIAGNOSTIC STRIPS Test blood sugar(s) 1 times d* AMLODIPINE 10 MG TABLET Take 1 tablet by mouth once d* BENZONATATE 100 MG CAPSULE Take 1 capsule by mouth three* CEPHALEXIN 500 MG CAPSULE EVERY 6 HOURS COMPOUNDED PRESCRIPTION ResMed AirCurve 10 S VPAP mac* ATORVASTATIN 10 MG TABLET Take 1 tablet by mouth once d* AMITRIPTYLINE 10 MG TABLET Take 1 tablet by mouth daily * CYCLOBENZAPRINE 10 MG TABLET Take 1 tablet by mouth three * ACETAMINOPHEN 500 MG TABLET Take 1 tablet by mouth every * Problem List As Of Date 05/09/2020 Noted Resolved Seborrheic dermatitis [L21.9] 03/28/2013 Rosacea [L71.9] 03/28/2013 Type 2 diabetes mellitus without complication, *03/29/2013 HTN (hypertension) [I10] 03/29/2013 Hyperlipidemia [E78.5] 03/29/2013 Obesity [E66.9] 03/29/2013 Family history of colon cancer [Z80.0] 04/17/2020 More... Family history of premature coronary artery dis* 04/17/2020 More... History of colon polyps [Z86.010] 03/07/2013 04/17/2020 Vitamin D deficiency [E55.9] Anal fissure [K60.2] 07/31/2014 04/17/2020 Abdominal pain, unspecified site [R10.9] 05/12/2015 04/17/20 20 Arthritis, hip [M16.10] 04/17/2020 Sural neuropathy [G57.90] 06/02/2015 Right leg pain [M79.604] 06/07/2015 04/17/2020 Skin lesion, superficial [L98.9] 06/15/2015 04/17/2020 Primary osteoarthritis of right hip [M16.11] 09/06/2015 Abnormal brain MRI [R90.89] 07/09/2017 Peripheral polyneuropathy [G62.9] 07/09/2017 04/17/2020 Pacemaker [Z95.0] 08/24/2019 Sick sinus syndrome (HCC) [I49.5] 08/24/2019 CT (obstructive sleep apnea) [G47.33] 08/24/2019 Obesity, Class III, BMI >= 40 [E66.01] 09/19/2019 Mild episode of recurrent major depressive diso*04/17/2020 Encounter Status:Closed by ADRIANA HAIDER MA on 05/09/20 cnpn on 2020-05-04 CNPN Telephone (FAMPWS) Normal 05-04-2020 [place] [facility] ABE STEVENSON ([id number]) 1960 [facility] Date Time Provider Department ([id number]) 05/04/20 CARLY ROGERS During your visit today, we recorded the following informati on about you: Elmira Barba PACO 05/04/2020 1:45 PM Signed Leticia with [facility] calling, she is there no w and patients BP is 188/104. Patient is asymptomatic but was rearranging some thing s right before Leticia got there and was a little winded. She also had not taken her BP meds until about an hour ago. Please advise. Carly Rogers MD 05/04/2020 4:02 PM Signed Noted, may just continue to monitor BP over the weekend MD Adriana Lance Ma 05/04/2020 4:23 PM Signed Leticia notified. BP will be checked again on Thursday at [facility]. Adriana Haider Ma Allergies As of Date: 05/04/2020 Noted Allergy Reaction ENALAPRIL 01/17/2013 3 - Cough Date Reviewed: 04/19/2020 Reviewed by: Macie Lloyd MA - Fully Assessed Reason for Visit: Blood Pressure [15] Prescriptions as of 05/04/2020 Sig: TRULICITY 0.75 MG/0.5 ML SUBC* Inject 0.75 mg subcutaneously * LANCETS Test blood sugar(s) 1 times d* BLOOD SUGAR DIAGNOSTIC STRIPS Test blood sugar(s) 1 times d* AMLODIPINE 10 MG TABLET Take 1 tablet by mouth once d* BENZONATATE 100 MG CAPSULE Take 1 capsule by mouth three* CEPHALEXIN 500 MG CAPSULE EVERY 6 HOURS COMPOUNDED PRESCRIPTION ResMed AirCurve 10 S VPAP mac* ATORVASTATIN 10 MG TABLET Take 1 tablet by mouth once d* AMITRIPTYLINE 10 MG TABLET Take 1 tablet by mouth daily * CYCLOBENZAPRINE 10 MG TABLET Take 1 tablet by mouth three * ACETAMINOPHEN 500 MG TABLET Take 1 tablet by mouth every * Problem List As Of Date 05/04/2020 Noted Resolved Seborrheic dermatitis [L21.9] 03/28/2013 Rosacea [L71.9] 03/28/2013 Type 2 diabetes mellitus without complication, *03/29/2013 HTN (hypertension) [I10] 03/29/2013 Hyperlipidemia [E78.5] 03/29/2013 Obesity [E66.9] 03/29/2013 Family history of colon cancer [Z80.0] 04/17/2020 More... Family history of premature coronary artery dis* 04/17/2020 More... History of colon polyps [Z86.010] 03/07/2013 04/17/2020 Vitamin D deficiency [E55.9] Anal fissure [K60.2] 07/31/2014 04/17/2020 Abdominal pain, unspecified site [R10.9] 05/12/2015 04/17/20 20 Arthritis, hip [M16.10] 04/17/2020 Sural neuropathy [G57.90] 06/02/2015 Right leg pain [M79.604] 06/07/2015 04/17/2020 Skin lesion, superficial [L98.9] 06/15/2015 04/17/2020 Primary osteoarthritis of right hip [M16.11] 09/06/2015 Abnormal brain MRI [R90.89] 07/09/2017 Peripheral polyneuropathy [G62.9] 07/09/2017 04/17/2020 Pacemaker [Z95.0] 08/24/2019 Sick sinus syndrome (HCC) [I49.5] 08/24/2019 CT (obstructive sleep apnea) [G47.33] 08/24/2019 Obesity, Class III, BMI >= 40 [E66.01] 09/19/2019 Mild episode of recurrent major depressive diso*04/17/2020 Encounter Status:Closed by ADRIANA HAIDER MA on 05/04/20 progress on 2020-04 PROGRESS HNO ID: [id number] Normal 04-19-2020 [facility] Author: Carly Rogers [place] ([id number]) Service: ? Author Type: Physician Type: Progress Notes Filed: 04/19/2020 11:10 AM Note Text: Chief Complaint Patient presents with: Recheck HPI:This Team Access Model visit is a virtual encounter. It required patient-provider interaction for the medical decision making as documented below. Patient was offered a virtual/telemedicine appointment in eu of an office visit due to recommendations to reduce patient exposu re to COVID-19. Patient is aware of limitations of performing the visit without a face to face visit in the office setting and agrees. Pt currently residing at [facility]. Has been there since November. Hoping to get a n apartment in the next month, unsure if in [place]. Pt here today for a follow up visit. Reports she's been on n o medications for the last 3 days due to being really sick, had to be erazo sported to ER by EMS and imaging completed. She feels this was related to drinking too much crystal light and taking amoxicillin. Smoking - Still smokes about 10 cigs per day. DM - Sugars have been around 121, checking every morning. De nies any lows. Currently on no medications. Pt reports that she's unable to take Metformin. She prefers Byetta, was able to tolerate it and i t helped her with weight loss. Denies any numbness, tingling or burning i n her feet. HTN - Nurse checks BP at home - around 150-177/80's with Aml odipine 10 mg once daily. Denies any chest pain, sob or dizziness. Pt has [facility] coming into the home twice a week. Reports EKG was done at t ER, nothing noted. Still follows with Cardiology. Depression - Doing well on Amitriptyline 10 mg once daily. Abscess on right thigh that was operated on at ER. Surgery c ompleted later by Dr. Olmedo few weeks ago. Following with the [facility] and wearing a wound vac. [facility] Center takes care of her supplies and [facility] takes care of the wound. Has been given rx's for Valium 5 mg and Percocet 5-325 mg - hasn't been taking. Past medical history, appointments, medications, allergies nancy parisi. Previous Medical History PAST MEDICAL HISTORY Diagnosis Date - Arthritis, hip - Diabetes mellitus (HCC) 03/2012 - Family history of colon cancer Father 55 - Family history of premature coronary artery disease mother PR at 50 - History of colon polyps 03/07/2013 - HTN (hypertension) - Hyperlipemia - Obesity - Rosacea - Seborrheic dermatitis - Vitamin D deficiency Previous Surgical History PAST SURGICAL HISTORY Procedure Laterality Date - COLONOSCOPY AND POLYPECTOMY 03/07/13 repeat due 2018, tubular adenoma - PAST SURGICAL HISTORY OF cyst removed from uterus while - TOTAL HIP JOINT REPLACEMENT Left 02/2018 [facility] - TOTAL HIP JOINT REPLACEMENT Right 06/2018 [facility] Family History FAMILY HISTORY Problem Relation Age of Onset - Coronary Artery Disease Mother 50 [place] - Diabetes Mother 40 age 68 - Colon Cancer Father 55 age 58 - Diabetes Sister 60 - Arthritis Sister - Osteoporosis Sister Patient Allergies ALLERGIES Allergen Reactions - Enalapril Cough Current Medications Current Outpatient Medications on File Prior to Visit Medication Sig - Lancets lancets Test blood sugar(s) 1 times daily. Dx: Typ e 2 DM - Controlled E11.9 Insulin: No - blood sugar diagnostic (BLOOD GLUCOSE TEST) test strip Radha t blood sugar(s) 1 times daily. Dx: Type 2 DM - Controlled E11.9 Ins ulin: No - amLODIPine (NORVASC) 10 mg tablet Take 1 tablet by mouth o nce daily. - benzonatate (TESSALON PERLES) 100 mg capsule Take 1 capsul e by mouth three times daily as needed for Cough. - cephALEXin (KEFLEX) 500 mg capsule EVERY 6 HOURS - COMPOUNDED PRESCRIPTION Geo[employer] AirCurve 10 S VPAP machine with heated humidity and heated tubing. Pressure set to 22/16 cm H2O. [employer]. - atorvastatin (LIPITOR) 10 mg tablet Take 1 tablet by mouth once daily. - amitriptyline (ELAVIL) 10 mg tablet Take 1 tablet by mouth daily at bedtime. - cyclobenzaprine (FLEXERIL) 10 mg tablet Take 1 tablet by m outh three times daily as needed. - acetaminophen (TYLENOL EXTRA STRENGTH) 500 mg tablet Take 1 tablet by mouth every 6 hours as needed for Pain. No current facility-administered medications on file prior t o visit. Social History Social History Tobacco Use - Smoking status: Current Every Day Smoker Packs/day: 0.50 Years: 15.00 Pack years: 7.50 Types: Cigarettes - Smokeless tobacco: Never Used - Tobacco comment: 10 cigarettes per day Substance Use Topics - Alcohol use: No Comment: 2 drinks/month - Drug use: No EXAM: BP 152/88 (BP Site: Left Arm, BP Position: Sitting, BP Cuff Size: Large Adult) Pulse 100 Health Maintenance List HIV SCREENING due on 1978 DTAP,TDAP,TD(1 - Tdap) due on 1979 HEPATITIS C SCREENING due on 2004 SHINGRIX VACCINE(1 of 2) due on 2010 DILATED RETINAL EXAM due on 11/12/2017 COLORECTAL CANCER SCREENING,SEE MODIFIER due on 03/07/2018 HPV TESTING due on 07/11/2018 DIABETIC FOOT EXAM due on 04/19/2020 MAMMOGRAM due on 09/19/2020 HBA1C due on 10/16/2020 BP CONTROLLED (<130/80) due on 11/20/2020 LDL CHOLESTEROL due on 12/16/2020 ANNUAL PCP TEAM CHRONIC DISEASE VISIT due on 03/23/2021 URINE ALBUMIN:CREATININE RATIO due on 04/16/2021 PAP TESTING due on 09/19/2024 ONE PNEUMOVAX PRIOR TO AGE 65 Completed INFLUENZA Completed Data reviewed [facility] Appointment on 04/16/2020 Component Date Value - Hemoglobin A1C 04/16/2020 7.6* - Estimated Average Glucose 04/16/2020 171 - Protein, Total 04/16/2020 7.9 - Albumin 04/16/2020 4.1 - Calcium 04/16/2020 10.6* - Bilirubin, Total 04/16/2020 0.2 - Alkaline Phosphatase 04/16/2020 120 - AST 04/16/2020 35 - Glucose 04/16/2020 138* - BUN 04/16/2020 13 - Creatinine 04/16/2020 0.79 - Sodium 04/16/2020 142 - Potassium 04/16/2020 4.4 - Chloride 04/16/2020 105 - CO2 04/16/2020 21* - Anion Gap 04/16/2020 16 - ALT 04/16/2020 32 - eGFR- 04/16/2020 >60 - eGFR-All Other Races 04/16/2020 >60 - Creatinine, Ur Random (U* 04/16/2020 143.3 - Albumin, Urine Random 04/16/2020 17.9 - Albumin/Creat Ratio 04/16/2020 12 ASSESSMENT/PLAN: 1. Type 2 diabetes mellitus without complication, without lo ng-term current use of insulin (HCC) - ICD9: 250.00, ICD10: E11.9 (p rimary diagnosis) worsening control - Add Trulicity weekly; does not tolerate metformin - TRULICITY 0.75 MG/0.5 ML SUBCUTANEOUS PEN INJECTOR - HGB A1C - COMP METABOLIC PANEL 2. Essential hypertension - ICD9: 401.9, ICD10: I10 - good control - Continue current medication(s) - Recommended regular aerobic exercise. - Recommend home blood pressure monitoring, to bring results in on next visit - Goal of BP <140/90 - COMP METABOLIC PANEL 3. Abscess of leg, right - ICD9: 682.6, ICD10: L02.415 Follow with Wound Center 4. Hospital discharge follow-up - ICD9: V67.59, ICD10: Z09 5. Depression, major, recurrent, mild (HCC) - ICD9: 296.31, ICD10: F33.0 Continue current medications. 6. Mixed hyperlipidemia - ICD9: 272.2, ICD10: E78.2 - LIPID PANEL BASIC Follow up in 3 months with labs prior I agree with the Chief Complaint, ROS, and Past Histories in dependently gathered by the clinical operations support professionals and the remaining scr ibed note accurately describes my personal service to the patient. aCrly Rogers MD The documentation for this note was completed by Macie cruz MA acting as scribe for Carly Rogers MD. April 19, 2020 9:37 AM. Macie shortov on 2020-04-19 CNOV Office Visit (FAMPWS) Normal 04-19-[address] [place] [address] [facility] ABE STEVENSON ([id number]) 1960 [facility] Date Time Provider Department ([id number]) 04/19/20 9:40 AM CARLY ROGERS During your visit today, we recorded the following informati on about you: Pulse Blood pressure Weight 100/minute 152/88 116.8 kg Carly Rogers MD 04/19/2020 11:10 AM Signed Chief Complaint Patient presents with: Recheck HPI:This Team Access Model visit is a virtual encounter. It required patient-provider interaction for the medical decision making as documented below. Patient was offered a virtual/telemedicine appointment in lieu of an office visit due to recommendations to reduce patient exposure to COVID-19. Patient is aware of limitations of performing the visit without a face to face visit in the office setting and agrees. Pt currently residing at [facility] [place] [facility]. Has been there since November. Hoping to get an apartment i n the next month, unsure if in [place]. Pt here today for a follow up visit. Reports she 's been on no medications for the last 3 days due to being really sick, had to be tr ansported to ER by EMS and imaging completed. She feels this wa s related to drinking too much crystal light and taking amoxicillin. Smoking - Still smokes about 10 cigs per day. DM - Sugars have been around 121, checking every morning. De nies any lows. Currently on no medications. Pt reports that she's padmini ble to take Metformin. She prefers Byetta, was able to tolerate it and it helped her with weight loss. Denies any numbness, tingling or burning in her feet. HTN - Nurse checks BP at home - around 1 50-177/80's with Amlodipine 10 mg once daily. Denies any chest pain, sob or dizziness. Pt has [facility] coming into the home twice a week. Reports EKG was done at the ER, not danni noted. Still follows with Cardiology. Depression - Doing well on Amitriptyline 10 mg once daily. Abscess on right thigh that was operated on at [facility]. Surgery completed later by Dr. Olmedo few weeks ago. [facility] er and wearing a wound vac. [facility] takes care of her supplies and [facility] takes care of the wound. Has been given rx's for Chuckie um 5 mg and Percocet 5-325 mg - hasn't been taking. Past medical history, appointments, medications, allergies r eviewed. Previous Medical History PAST MEDICAL HISTORY Diagnosis Date - Arthritis, hip - Diabetes mellitus (HCC) 03/2012 - Family history of colon cancer Father 55 - Family history of premature coronary artery disease mother PR at 50 - History of colon polyps 03/07/2013 - HTN (hypertension) - Hyperlipemia - Obesity - Rosacea - Seborrheic dermatitis - Vitamin D deficiency Previous Surgical History PAST SURGICAL HISTORY Procedure Laterality Date - COLONOSCOPY AND POLYPECTOMY 03/07/13 repeat due 2018, tubular adenoma - PAST SURGICAL HISTORY OF cyst removed from uterus while - TOTAL HIP JOINT REPLACEMENT Left 02/2018 [facility] - TOTAL HIP JOINT REPLACEMENT Right 06/2018 [facility] Family History FAMILY HISTORY Problem Relation Age of Onset - Coronary Artery Disease Mother 50 [place] - Diabetes Mother 40 age 68 - Colon Cancer Father 55 age 58 - Diabetes Sister 60 - Arthritis Sister - Osteoporosis Sister Patient Allergies ALLERGIES Allergen Reactions - Enalapril Cough Current Medications Current Outpatient Medications on File Prior to Visit Medication Sig - Lancets lancets Test blood sugar(s) 1 times daily. Dx: Typ e 2 DM - Controlled E11.9 Insulin: No - blood sugar diagnostic (BLOOD GLUCOSE TEST) test strip Test blood sugar(s) 1 times daily. Dx: Type 2 DM - Controlled E11.9 Insulin: No - amLODIPine (NORVASC) 10 mg tablet Take 1 tablet by mouth o nce daily. - benzonatate (TESSALON PERLES) 100 mg capsule Take 1 capsule by mouth three times daily as needed for Cough. - cephALEXin (KEFLEX) 500 mg capsule EVERY 6 HOURS - COMPOUNDED PRESCRIPTION [employer] AirCurve 10 S VPAP machine with heated humidity and heated tubing. Pressure set to 22/16 cm H 2O. [employer]. - atorvastatin (LIPITOR) 10 mg tablet Take 1 tablet by mouth once daily. - amitriptyline (ELAVIL) 10 mg tablet Ta ke 1 tablet by mouth daily at bedtime. - cyclobenzaprine (FLEXERIL) 10 mg tablet Take 1 table t by mouth three times daily as needed. - acetaminophen (TYLENOL EXTRA STRENGTH) 500 mg tablet Take 1 tablet by mouth every 6 hours as needed for Pain. No current facility-administered medications on file prior t o visit. Social History Social History Tobacco Use - Smoking status: Current Every Day Smoker Packs/day: 0.50 Years: 15.00 Pack years: 7.50 Types: Cigarettes - Smokeless tobacco: Never Used - Tobacco comment: 10 cigarettes per day Substance Use Topics - Alcohol use: No Comment: 2 drinks/month - Drug use: No EXAM: BP 152/88 (BP Site: Left Arm, BP Positio n: Sitting, BP Cuff Size: Large Adult) Pulse 100 Health Maintenance List HIV SCREENING due on 1978 DTAP,TDAP,TD(1 - Tdap) due on 1979 HEPATITIS C SCREENING due on 2004 SHINGRIX VACCINE(1 of 2) due on 2010 DILATED RETINAL EXAM due on 11/12/2017 COLORECTAL CANCER SCREENING,SEE MODIFIER due on 03/07/2018 HPV TESTING due on 07/11/2018 DIABETIC FOOT EXAM due on 04/19/2020 MAMMOGRAM due on 09/19/2020 HBA1C due on 10/16/2020 BP CONTROLLED (<130/80) due on 11/20/2020 LDL CHOLESTEROL due on 12/16/2020 ANNUAL PCP TEAM CHRONIC DISEASE VISIT due on 03/23/2021 URINE ALBUMIN:CREATININE RATIO due on 04/16/2021 PAP TESTING due on 09/19/2024 ONE PNEUMOVAX PRIOR TO AGE 65 Completed INFLUENZA Completed Data reviewed [facility] Appointment on 04/16/2020 Component Date Value - Hemoglobin A1C 04/16/2020 7.6* - Estimated Average Glucose 04/16/2020 171 - Protein, Total 04/16/2020 7.9 - Albumin 04/16/2020 4.1 - Calcium 04/16/2020 10.6* - Bilirubin, Total 04/16/2020 0.2 - Alkaline Phosphatase 04/16/2020 120 - AST 04/16/2020 35 - Glucose 04/16/2020 138* - BUN 04/16/2020 13 - Creatinine 04/16/2020 0.79 - Sodium 04/16/2020 142 - Potassium 04/16/2020 4.4 - Chloride 04/16/2020 105 - CO2 04/16/2020 21* - Anion Gap 04/16/2020 16 - ALT 04/16/2020 32 - eGFR- 04/16/2020 >60 - eGFR-All Other Races 04/16/2020 >60 - Creatinine, Ur Random (U* 04/16/2020 143.3 - Albumin, Urine Random 04/16/2020 17.9 - Albumin/Creat Ratio 04/16/2020 12 ASSESSMENT/PLAN: 1. Type 2 diabetes mellitus without complication, without long-term current use of insulin (HCC) - ICD9: 250.00, ICD10: E11.9 (primary diagn osis) worsening control - Add Trulicity weekly; does not tolerate metformin - TRULICITY 0.75 MG/0.5 ML SUBCUTANEOUS PEN INJECTOR - HGB A1C - COMP METABOLIC PANEL 2. Essential hypertension - ICD9: 401.9, ICD10: I10 - good control - Continue current medication(s) - Recommended regular aerobic exercise. - Recommend home blood pressure monitoring, to b ring results in on next visit - Goal of BP <140/90 - COMP METABOLIC PANEL 3. Abscess of leg, right - ICD9: 682.6, ICD10: L02.415 Follow with [facility] 4. Hospital discharge follow-up - ICD9: V67.59, ICD10: Z09 5. Depression, major, recurrent, mild (HCC) - ICD9: 296.31, ICD10: F33.0 Continue current medications. 6. Mixed hyperlipidemia - ICD9: 272.2, ICD10: E78.2 - LIPID PANEL BASIC Follow up in 3 months with labs prior I agree with the Chief Complaint, ROS, and Past Histories in dependently gathered by the clinical operations support professionals and the remaining scr ibed note accurately describes my personal service to the patient. Carly Rogers MD The documentation for this note was completed by Macie cruz MA acting as scribe for Carly Rogers MD. April 19, 2020 9:37 AM. Macie Lloyd MA Referring Provider: CARLY ROGERS [[id number]] Allergies As of Date: 04/19/2020 Noted Allergy Reaction ENALAPRIL 01/17/2013 3 - Cough Date Reviewed: 04/19/2020 Reviewed by: Macie Lloyd MA - Fully Assessed Reason for Visit: Recheck [92] Primary Visit Diagnosis:Type 2 diabetes mellitus without complication, without long-term current use of insulin (HCC) [E11.9] Other Visit Diagnoses:Essential hypertension [I10] Abscess of leg, right [L02.415] Hospital discharge follow-up [Z09] Depression, major, recurrent, mild (HCC) [F33.0] Mixed hyperlipidemia [E78.2] Order(s):dulaglutide (TRULICITY) 0.75 mg/0.5 mL pnijInject 0 .75 mg subcutaneously one time a week. Inject dose once per week. D iscard Pen AfterDisp: 4 PenRfl: 5 HGB A1C [[id number]] Order #: [id number] FUTURE COMP METABOLIC PANEL [SQCMP] Order #: [id number] FUTURE LIPID PANEL BASIC [SQLIPB] Order #: [id number] FUTURE Prescriptions as of 04/19/2020 Sig: LANCETS Test blood sugar(s) 1 times d* BLOOD SUGAR DIAGNOSTIC STRIPS Test blood sugar(s) 1 times d* AMLODIPINE 10 MG TABLET Take 1 tablet by mouth once d* BENZONATATE 100 MG CAPSULE Take 1 capsule by mouth three* ATORVASTATIN 10 MG TABLET Take 1 tablet by mouth once d* AMITRIPTYLINE 10 MG TABLET Take 1 tablet by mouth daily * CYCLOBENZAPRINE 10 MG TABLET Take 1 tablet by mouth three * ACETAMINOPHEN 500 MG TABLET Take 1 tablet by mouth every * TRULICITY 0.75 MG/0.5 ML SUBC* Inject 0.75 mg subcutaneously * CEPHALEXIN 500 MG CAPSULE EVERY 6 HOURS COMPOUNDED PRESCRIPTION ResMed AirCurve 10 S VPAP mac* Problem List As Of Date 04/19/2020 Noted Resolved Seborrheic dermatitis [L21.9] 03/28/2013 Rosacea [L71.9] 03/28/2013 Type 2 diabetes mellitus without complication, *03/29/2013 HTN (hypertension) [I10] 03/29/2013 Hyperlipidemia [E78.5] 03/29/2013 Obesity [E66.9] 03/29/2013 Family history of colon cancer [Z80.0] 04/17/2020 More... Family history of premature coronary artery dis* 04/17/2020 More... History of colon polyps [Z86.010] 03/07/2013 04/17/2020 Vitamin D deficiency [E55.9] Anal fissure [K60.2] 07/31/2014 04/17/2020 Abdominal pain, unspecified site [R10.9] 05/12/2015 04/17/20 20 Arthritis, hip [M16.10] 04/17/2020 Sural neuropathy [G57.90] 06/02/2015 Right leg pain [M79.604] 06/07/2015 04/17/2020 Skin lesion, superficial [L98.9] 06/15/2015 04/17/2020 Primary osteoarthritis of right hip [M16.11] 09/06/2015 Abnormal brain MRI [R90.89] 07/09/2017 Peripheral polyneuropathy [G62.9] 07/09/2017 04/17/2020 Pacemaker [Z95.0] 08/24/2019 Sick sinus syndrome (HCC) [I49.5] 08/24/2019 CT (obstructive sleep apnea) [G47.33] 08/24/2019 Obesity, Class III, BMI >= 40 [E66.01] 09/19/2019 Mild episode of recurrent major depressive diso*04/17/2020 Prescriptions ordered this encounter Disp Refills Start End TRULICITY 0.75 MG/0.5 ML SUBCUTANEOU* 4 Pen 5 04/19/2020 Route: SUBCUTANEOUS Sig: Inject 0.75 mg subcutaneously one time a week. Inject d ose once per week. Discard Pen After Disposition: Return in about 3 months (around 07/20/2020). Follow-up and Disposition History Recorded Encounter Status:Closed by CARLY ROGERS MD on 04/19/20 cnpn on 2020-04-17 CNPN Telephone (FAMPWS) Normal 04-17-2020 [facility] ABE STEVENSON ([id number]) 1960 [facility] Date Time Provider Department ([id number]) 04/17/20 [facility] During your visit today, we recorded the following informati on about you: Bea Santana RN 04/17/2020 3:39 PM Signed Leticia from [facility] called, verified pt by name and birthdate. Leticia states she met with pt and pt was not acting right. Pt reportedly wore her sunglasses for entire visit and was very withdrawn. Leticia states [facility] told her that pt wears her sunglasses as a coping mechanism. Leticia verified pt has apt on 04-19-2020 with PCP . Informed her the office has tried to contact her to change visit to phone visit and they have been unsuccessful. Verified phone number is c orrect for pt. Leticia relates she can help contact pt if office can't reach her. Please advise Bea Rogers MD 04/17/2020 4:26 PM Signed Noted Carly Rogers MD Allergies As of Date: 04/17/2020 Noted Allergy Reaction ENALAPRIL 01/17/2013 3 - Cough Date Reviewed: 03/23/2020 Reviewed by: Adriana Haider Ma - Fully Assessed Reason for Visit: FYI-No Action Needed [265] Prescriptions as of 04/17/2020 Sig: LANCETS Test blood sugar(s) 1 times d* BLOOD SUGAR DIAGNOSTIC STRIPS Test blood sugar(s) 1 times d* AMLODIPINE 10 MG TABLET Take 1 tablet by mouth once d* BENZONATATE 100 MG CAPSULE Take 1 capsule by mouth three* CEPHALEXIN 500 MG CAPSULE EVERY 6 HOURS COMPOUNDED PRESCRIPTION ResMed AirCurve 10 S VPAP mac* ATORVASTATIN 10 MG TABLET Take 1 tablet by mouth once d* AMITRIPTYLINE 10 MG TABLET Take 1 tablet by mouth daily * CYCLOBENZAPRINE 10 MG TABLET Take 1 tablet by mouth three * ACETAMINOPHEN 500 MG TABLET Take 1 tablet by mouth every * Problem List As Of Date 04/17/2020 Noted Resolved Seborrheic dermatitis [L21.9] 03/28/2013 Rosacea [L71.9] 03/28/2013 Type 2 diabetes mellitus without complication, *03/29/2013 HTN (hypertension) [I10] 03/29/2013 Hyperlipidemia [E78.5] 03/29/2013 Obesity [E66.9] 03/29/2013 Family history of colon cancer [Z80.0] 04/17/2020 More... Family history of premature coronary artery dis* 04/17/2020 More... History of colon polyps [Z86.010] 03/07/2013 04/17/2020 Vitamin D deficiency [E55.9] Anal fissure [K60.2] 07/31/2014 04/17/2020 Abdominal pain, unspecified site [R10.9] 05/12/2015 04/17/20 20 Arthritis, hip [M16.10] 04/17/2020 Sural neuropathy [G57.90] 06/02/2015 Right leg pain [M79.604] 06/07/2015 04/17/2020 Skin lesion, superficial [L98.9] 06/15/2015 04/17/2020 Primary osteoarthritis of right hip [M16.11] 09/06/2015 Abnormal brain MRI [R90.89] 07/09/2017 Peripheral polyneuropathy [G62.9] 07/09/2017 04/17/2020 Pacemaker [Z95.0] 08/24/2019 Sick sinus syndrome (HCC) [I49.5] 08/24/2019 CT (obstructive sleep apnea) [G47.33] 08/24/2019 Obesity, Class III, BMI >= 40 [E66.01] 09/19/2019 Mild episode of recurrent major depressive diso*04/17/2020 Encounter Status:Closed by MACIE LLOYD MA on 04/17/20 hemoglobin a1c on HbA1c (Bld) [Mass fraction] 171 mg/dL Normal [facility] ([id number]) Comment: Result Comment: eAG: (Estima jayna average glucose) is a calculated value from HgbA1c and is direct marketing representative of the average blood glucose level in the last 2-3 month period. Performed By: #### HBA1C, CM P ####[address] [phone] HbA1c (Bld) [Mass fraction] 7.6 4.3-5.6 % High [facility] ([id number]) Comment: Result Comment: [place] bet[employer] Association guidelines indicate that patients with HgbA1c in the range 5.7-6.4% are at increased risk for development of diabetes, and intervention by lifestyle modification may be beneficial. HgbA1c greater o r equal to 6.5% is considered diagnostic of diabetes. Performed By: #### HBA1C, CM P ####[place] [address] [place], [place] [phone] comp metabolic panel on 2020-04-16 Albumin [Mass/Vol] 4.1 3.9-4.9 g/dL Normal 04-16-2020 [facility] (06807) Comment: Performed By: #### HBA1C, CM P ####[address] [phone] ALP [Catalytic activity/Vol] 120 34-123 U/L Normal 0 04-16-2020 [facility] (98058) Comment: Performed By: #### HBA1C, CM P ####[facility], [place] [phone]- [phone] ALT [Catalytic activity/Vol] 32 7-38 U/L Normal 0 04-16-2020 [facility] (90282) Comment: Performed By: #### HBA1C, CM P ####[place] [address] [place], [place] [phone]- [phone] Anion gap [Moles/Vol] 16 9-18 mmol/L Normal 04-16-20 20 [facility] (55778) Comment: Performed By: #### HBA1C, CM P ####[place] [address] [place], [place] [phone]- [phone] AST [Catalytic activity/Vol] 35 13-35 U/L Normal 0 04-16-2020 [facility] (31617) Comment: Performed By: #### HBA1C, CM P ####[place] [address] [place], [place] [phone]- [phone] Bilirubin [Mass/Vol] 0.2 0.2-1.3 mg/dL Normal 0 [facility] (16526) Comment: Performed By: #### HBA1C, CM P ####[place] [address] [place], [place] [phone]- [phone] Calcium [Mass/Vol] 10.6 8.5-10.2 mg/dL High 04-16-2020 [facility] (28120) Comment: Performed By: #### HBA1C, CM P ####[place] [address] [address], [place] [phone] Chloride [Moles/Vol] 105 97-105 mmol/L Normal 0 [facility] (28227) Comment: Performed By: #### HBA1C, CM P ####[place] [address] [address] [facility], [place] [phone] CO2 [Moles/Vol] 21 22-30 mmol/L Low 04-16-2020 [facility] (61280) Comment: Performed By: #### HBA1C, CM P ####[facility] [address] [place], [place] [phone] Creatinine [Mass/Vol] 0.79 0.58-0.96 mg/dL Normal 04-16-20 20 [facility] (92051) Comment: Performed By: #### HBA1C, CM P ####[facility] [address] [place], [place] [phone] eGFR- Amer. >60 Normal 04-16-2020 [facility] (32878) Comment: Performed By: #### HBA1C, CM P ####[facility] [place] [address] [phone] GFR/1.73 sq M predicted >60 mL/min/{1.73_m2} Normal 04-16-2020 [facility] among non-blacks [facility] ([id number]) (S/P/Bld) [Vol rate/Area] Comment: Result Comment: eGFR (Estima jayna GFR) Units of measure: mL/min/1.73 meters squared eGFR is derived from the ree xpressed MDRD Study equation using the following parameters: serum creatinine, age, gender and race. The creatinine assay has been calibrated to be traceable to IDMS. An eGFR <60 mL/min/1.73m2 fo r >3 months is consistent with chronic kidney disease. Refer to KDOQI guidelines for clinical interpretation. In patients with unstable re nal function, e.g. those with acute kidney injury, the eGFR may not accurately reflect actual GFR. Performed By: #### HBA1C, CM P ####[facility] [address] [place], [place] [phone]- [phone] Glucose [Mass/Vol] 138 74-99 mg/dL High 04-16-2020 [facility] (72814) Comment: Result Comment: The [place] Diabetes Association (ADA) provides guidance for cutoff values for fasting glucose and random glucose. The ADA defines fasting as no caloric intake for at least 8 hours. Fas ting plasma glucose results between 100 to 125 mg/dL indicate increased risk for diabetes (prediabetes). Fasting plasma glucose resul ts greater than or equal to 126 mg/dL meet the criteria for diagnosis of diabetes. In the absence of unequivocal hyperglycemia, results should be confirmed by repeat testing. In a patient with classic s ymptoms of hyperglycemia or hyperglycemic crisis, random plasma glucose results greater than or equal to 200 mg/dL meet the criteria for diagnosis of diabetes. Reference: Standards of [facility] in Diabetes 2016, [place] Diabetes Association. Diabetes Care. 2016.39(Suppl 1). Performed By: #### HBA1C, CM P ####[place] [address] [address], [place] [phone]- [phone] Potassium [Moles/Vol] 4.4 3.7-5.1 mmol/L Normal 04-16-20 [facility] (81471) Comment: Performed By: #### HBA1C, CM P ####[place] [address] [place], [place] [phone] Protein [Mass/Vol] 7.9 6.3-8.0 g/dL Normal 04-16-2020 [facility] (23266) Comment: Performed By: #### HBA1C, CM P ####[place] [address] [place], [place] [phone]- [phone] Sodium [Moles/Vol] 142 136-144 mmol/L Normal 04-16-2020 [facility] (35192) Comment: Performed By: #### HBA1C, CM P ####[place] [address] [place], [place] [phone]- [phone] Urea nitrogen [Mass/Vol] 13 7-21 mg/dL Normal 04-16 [facility] (60114) Comment: Performed By: #### HBA1C, CM P ####[place] [address] [place], [place] [phone] albumin/creat ratio on 2020-04-16 Albumin Urine Random 17.9 mg/L Normal 0 [facility] (21615) Comment: Performed By: #### UACR #### [place] [address] [place], [place] [phone] Albumin/Creat Ratio 12 <30 mg/g Normal 04-16-2020 [facility] (47383) Comment: Result Comment: Adult Male a nd Female Nephrotic Criteria: <30 mg/g is considered beatrice l to mildly increased 30-300 mg/g is considered mo derately increased >300 mg/g is considered patrice rely increased KDIGO. (2013). KDIGO 2012 Cl inical Practice Guideline for the Evaluation and Management of Chronic Kidney Disease. Official Journal of the International Society of Nephrology, 3(1), 1-150. Performed By: #### UACR #### [facility] [place], [place] [phone] Creatinine,Urine,Ran 143.3 20-300 mg/dL Normal 0 [facility] (03825) Comment: Performed By: #### UACR #### [facility] [place], [place] [phone] cnpn on 2020-04-10 CNPN Telephone (FAMWS) Normal 04-10-2020 [facility] ABE STEVENSON ([id number]) 1960 [facility] Date Time Provider Department ([id number]) 04/10/20 [facility] During your visit today, we recorded the following informati on about you: Renate Velasco LPN 04/10/2020 11:56 AM Signed Dottie with [facility] calling with plan of care for patient. Please advise Dottie PH: [phone]. 1.. Nursing for 2 to 3 times per week for wound care. 2. Patient is requesting a glucometer, lancets and test stri ps to [facility]. Renate Velasco LPN Carly Rogers MD 04/10/2020 2:56 PM Signed I agree with plan of care Rxs for glucometer, lancets and test strips done MD Sin Lance LPN 04/10/2020 3:25 PM Signed Dottie has been advised of VO and that diabetic test ing supplies have been sent to pharm. Sin Lopez LPN Allergies As of Date: 04/10/2020 Noted Allergy Reaction ENALAPRIL 01/17/2013 3 - Cough Date Reviewed: 03/23/2020 Reviewed by: Adriana Haider Ma - Fully Assessed Reason for Visit: [facility] [Other] Primary Visit Diagnosis:Type 2 diabetes mellitus without complication, without long-term current use of insulin (HCC) [E11.9] Order(s):HOME BLOOD GLUCOSE MONITOR [[id number]] Order #: [id number] Lancets lancetsTest blood sugar(s) 1 times daily. Dx: Type 2 DM - Controlled E11.9 Insulin: NoDisp: 50 EachRfl: 11 blood sugar diagnostic (BLOOD GLUCOSE TEST) test stripTest b lood sugar(s) 1 times daily. Dx: Type 2 DM - Controlled E11.9 Ins ulin: NoDisp: 50 StripRfl: 11 Prescriptions as of 04/10/2020 Sig: LANCETS Test blood sugar(s) 1 times d* BLOOD SUGAR DIAGNOSTIC STRIPS Test blood sugar(s) 1 times d* AMLODIPINE 10 MG TABLET Take 1 tablet by mouth once d* BENZONATATE 100 MG CAPSULE Take 1 capsule by mouth three* CEPHALEXIN 500 MG CAPSULE EVERY 6 HOURS COMPOUNDED PRESCRIPTION ResMed AirCurve 10 S VPAP mac* ATORVASTATIN 10 MG TABLET Take 1 tablet by mouth once d* AMITRIPTYLINE 10 MG TABLET Take 1 tablet by mouth daily * CYCLOBENZAPRINE 10 MG TABLET Take 1 tablet by mouth three * ACETAMINOPHEN 500 MG TABLET Take 1 tablet by mouth every * Problem List As Of Date 04/10/2020 Noted Resolved Seborrheic dermatitis [L21.9] 03/28/2013 Rosacea [L71.9] 03/28/2013 Diabetes mellitus, type 2 (HCC) [E11.9] 03/29/2013 HTN (hypertension) [I10] 03/29/2013 Hyperlipidemia [E78.5] 03/29/2013 Obesity [E66.9] 03/29/2013 Family history of colon cancer [Z80.0] More... Family history of premature coronary artery dis* More... History of colon polyps [Z86.010] 03/07/2013 Vitamin D deficiency [E55.9] Anal fissure [K60.2] 07/31/2014 Abdominal pain, unspecified site [R10.9] 05/12/2015 Arthritis, hip [M16.10] Sural neuropathy [G57.90] 06/02/2015 Right leg pain [M79.604] 06/07/2015 Skin lesion, superficial [L98.9] 06/15/2015 Primary osteoarthritis of right hip [M16.11] 09/06/2015 Abnormal brain MRI [R90.89] 07/09/2017 Peripheral polyneuropathy (HCC) [G62.9] 07/09/2017 Pacemaker [Z95.0] 08/24/2019 Sick sinus syndrome (HCC) [I49.5] 08/24/2019 CT (obstructive sleep apnea) [G47.33] 08/24/2019 Obesity, Class III, BMI >= 40 [E66.01] 09/19/2019 Prescriptions ordered this encounter Disp Refills Start End LANCETS 50 E* 11 04/10/2020 Sig: Test blood sugar(s) 1 times daily. Dx: Type 2 DM - Cont rolled E11.9 Insulin: No BLOOD SUGAR DIAGNOSTIC STRIPS 50 S* 11 04/10/2020 Sig: Test blood sugar(s) 1 times daily. Dx: Type 2 DM - Cont rolled E11.9 Insulin: No Encounter Status:Closed by SIN LOPEZ LPN on 04/10/20 progress on 2020-03 PROGRESS HNO ID: [id number] Normal 04-06-2020 [facility] Author: Carly Rogers ([id number]) Service: ? Author Type: Physician Type: Progress Notes Filed: 04/06/2020 3:10 PM Note Text: Noted Carly Rogers MD PROGRESS HNO ID: [id number] Normal 04-06-2020 [facility] Author: Cathy Salazar MA ([id number]) Service: ? Author Type: Carpet Inspector Finished Type: Progress Notes Filed: 04/06/2020 3:10 PM Note Text: TRANSITION CARE MANAGEMENT (TCM) INITIAL CONTACT Carpet Inspector Finished Outreach Provider Action/FYI: Initial contact with patient post discharge, spoke to pedro lazaro Patient identified by name and . TRANSITION CARE MANAGEMENT INITIAL OUTREACH DOCUMENTATION: Date of Outreach: 04/06/2020 04/06/2020 Outreach Attempt 1: Contact Made - Date of Discharge 04/05/2020 04/05/2020 Some recent data might be hidden SUMMARY: -Pt discharged from [facility] on 04/05/20. -Admitted for: Abcess right medial thigh Do you have a hospital follow up appointment with your PCP? Appointment on 04/19/20 with Sue . Yes. Remind patient of appointment date, time, and location. If not within 14 calendar days of discharge - please reschedule acc ordingly. MEDICATIONS: Many patients have questions or concerns about their medicat ions once they are home. Were you prescribed any new medications? No Were you told to hold any medications? No Were any of your medications discontinued? No Do you have any questions about getting or taking your medic ations? No Your discharge instructions/After visit Summary (AVS) are im portant in guiding you through the recovery process. Is there anything I might help you understand? No Do you have all the necessary equipment and supplies at home ? Yes Medical records from recent hospitalization: [facility] cnptoutreach on CNPTOUTREACH Patient Outreach (FAMPWS) Normal 0 04-06-2020 [facility] ABE STEVENSON ([id number]) 1960 [facility] Time Provider Department ([id number]) 04/06/20 CARLY ROGERSPWS During your visit today, we recorded the following informati on about you: Cathy Salazar MA, MA 04/06/2020 3:10 PM Signed TRANSITION CARE MANAGEMENT (TCM) INITIAL CONTACT Carpet Inspector Finished Outreach Provider Action/FYI: Initial contact with patient post discharge, spoke to pedro lazaro Patient identified by name and . TRANSITION CARE MANAGEMENT INITIAL OUTREACH DOCUMENTATION: Date of Outreach: 04/06/2020 04/06/2020 Outreach Attempt 1: Contact Made - Date of Discharge 04/05/2020 04/05/2020 Some recent data might be hidden SUMMARY: -Pt discharged from [facility] on 04/05/20. -Admitted for: Abcess right medial thigh Do you have a hospital follow up appointment with your PCP? Appointment on 04/19/20 with Sue . Yes. Remind patient of appointment date, time, a nd location. If not within 14 calendar days of discharge - please reschedule accordingly. MEDICATIONS: Many patients have questions or concerns about their medications once they are home. Were you prescribed any new medications? No Were you told to hold any medications? No Were any of your medications discontinued? No Do you have any questions about getting or taking your medic ations? No Your discharge instructions/After visit Summary (AVS) are important in guiding you through the recovery pro cess. Is there anything I might help you understand? No Do you have all the necessary equipment and supplies at home ? Yes Medical records from recent hospitalization: Epic Carly Rogers MD 04/06/2020 3:10 PM Signed Noted Carly Rogers MD Allergies As of Date: 04/06/2020 Noted Allergy Reaction ENALAPRIL 01/17/2013 3 - Cough Date Reviewed: 03/23/2020 Reviewed by: Adriana Haider Ma - Fully Assessed Reason for Visit: Hospital F/U [57] Prescriptions as of 04/06/2020 Sig: AMLODIPINE 10 MG TABLET Take 1 tablet by mouth once d* BENZONATATE 100 MG CAPSULE Take 1 capsule by mouth three* CEPHALEXIN 500 MG CAPSULE EVERY 6 HOURS COMPOUNDED PRESCRIPTION ResMed AirCurve 10 S VPAP mac* ATORVASTATIN 10 MG TABLET Take 1 tablet by mouth once d* AMITRIPTYLINE 10 MG TABLET Take 1 tablet by mouth daily * CYCLOBENZAPRINE 10 MG TABLET Take 1 tablet by mouth three * ACETAMINOPHEN 500 MG TABLET Take 1 tablet by mouth every * Problem List As Of Date 04/06/2020 Noted Resolved Seborrheic dermatitis [L21.9] 03/28/2013 Rosacea [L71.9] 03/28/2013 Diabetes mellitus, type 2 (HCC) [E11.9] 03/29/2013 HTN (hypertension) [I10] 03/29/2013 Hyperlipidemia [E78.5] 03/29/2013 Obesity [E66.9] 03/29/2013 Family history of colon cancer [Z80.0] More... Family history of premature coronary artery dis* More... History of colon polyps [Z86.010] 03/07/2013 Vitamin D deficiency [E55.9] Anal fissure [K60.2] 07/31/2014 Abdominal pain, unspecified site [R10.9] 05/12/2015 Arthritis, hip [M16.10] Sural neuropathy [G57.90] 06/02/2015 Right leg pain [M79.604] 06/07/2015 Skin lesion, superficial [L98.9] 06/15/2015 Primary osteoarthritis of right hip [M16.11] 09/06/2015 Abnormal brain MRI [R90.89] 07/09/2017 Peripheral polyneuropathy (HCC) [G62.9] 07/09/2017 Pacemaker [Z95.0] 08/24/2019 Sick sinus syndrome (HCC) [I49.5] 08/24/2019 CT (obstructive sleep apnea) [G47.33] 08/24/2019 Obesity, Class III, BMI >= 40 [E66.01] 09/19/2019 Encounter Status:Closed by CARLY ROGERS MD on 04/06/20 [facility]) Normal 04-06-2020 [place] ABE STEVENSON ([id number]) 1960 [address] [place] Date Time Provider Department ([id number]) 04/06/20 [facility] During your visit today, we recorded the following informati on about you: Bea Santana RN 04/06/2020 10:34 AM Signed nurse Leticia from [facility] call ed, verified pt by name and birthdate. Leticia states she would like order for home care to start tomorrow. Please advise Bea Rogers MD 04/06/2020 11:53 AM Signed OK for Home Care as requested MD Cathy Lance MA, MA 04/06/2020 1:41 PM Signed Leticia t informed, verbalized understanding. Cathy Salazar MA Allergies As of Date: 04/06/2020 Noted Allergy Reaction ENALAPRIL 01/17/2013 3 - Cough Date Reviewed: 03/23/2020 Reviewed by: Adriana Haider Ma - Fully Assessed Reason for Visit: care home care orders [Other] Prescriptions as of 04/06/2020 Sig: AMLODIPINE 10 MG TABLET Take 1 tablet by mouth once d* BENZONATATE 100 MG CAPSULE Take 1 capsule by mouth three* CEPHALEXIN 500 MG CAPSULE EVERY 6 HOURS COMPOUNDED PRESCRIPTION ResMed AirCurve 10 S VPAP mac* ATORVASTATIN 10 MG TABLET Take 1 tablet by mouth once d* AMITRIPTYLINE 10 MG TABLET Take 1 tablet by mouth daily * CYCLOBENZAPRINE 10 MG TABLET Take 1 tablet by mouth three * ACETAMINOPHEN 500 MG TABLET Take 1 tablet by mouth every * Problem List As Of Date 04/06/2020 Noted Resolved Seborrheic dermatitis [L21.9] 03/28/2013 Rosacea [L71.9] 03/28/2013 Diabetes mellitus, type 2 (HCC) [E11.9] 03/29/2013 HTN (hypertension) [I10] 03/29/2013 Hyperlipidemia [E78.5] 03/29/2013 Obesity [E66.9] 03/29/2013 Family history of colon cancer [Z80.0] More... Family history of premature coronary artery dis* More... History of colon polyps [Z86.010] 03/07/2013 Vitamin D deficiency [E55.9] Anal fissure [K60.2] 07/31/2014 Abdominal pain, unspecified site [R10.9] 05/12/2015 Arthritis, hip [M16.10] Sural neuropathy [G57.90] 06/02/2015 Right leg pain [M79.604] 06/07/2015 Skin lesion, superficial [L98.9] 06/15/2015 Primary osteoarthritis of right hip [M16.11] 09/06/2015 Abnormal brain MRI [R90.89] 07/09/2017 Peripheral polyneuropathy (HCC) [G62.9] 07/09/2017 Pacemaker [Z95.0] 08/24/2019 Sick sinus syndrome (HCC) [I49.5] 08/24/2019 CT (obstructive sleep apnea) [G47.33] 08/24/2019 Obesity, Class III, BMI >= 40 [E66.01] 09/19/2019 Encounter Status:Closed by CATHY SALAZAR on 04/06/20 cnpn on 2020-04-05 [facility]NPN Telephone (FAMPWS) Normal 04-05-2020 [facility] ABE STEVENSON ([id number]) 1960 [facility] Date Time Provider Department ([id number]) 04/05/20 [facility] During your visit today, we recorded the following informati on about you: Ruby Swenson Pss 04/05/2020 12:44 PM Signed Patient is calling to inform doctor that she has been admitt ed to [facility] earlier this week for a Diabetic abscess on right inner thigh that was operated on. She is seeing wound on April 16 please advise patient if she is to keep appointment with you on April 19. Carly Rogers MD 04/05/2020 4:52 PM Signed Yes, I would like to have her keep her April 19 appt, as this was her 6 monthgfollow up, and I can see how she is doing with the [facility] also. MD Adriana Lance Ma 04/05/2020 4:54 PM Signed Message left for pt to call back for providers message below . Has she been discharged? Adriana Hernandez RN 04/05/2020 5:27 PM Signed Spoke with patient. Given message from provider's offi ce. Patient verbalizes understanding. Edilberto Hernandez RN Allergies As of Date: 04/05/2020 Noted Allergy Reaction ENALAPRIL 01/17/2013 3 - Cough Date Reviewed: 03/23/2020 Reviewed by: Adraina Haider Ma - Fully Assessed Reason for Visit: Patient Update [1234] Prescriptions as of 04/05/2020 Sig: AMLODIPINE 10 MG TABLET Take 1 tablet by mouth once d* BENZONATATE 100 MG CAPSULE Take 1 capsule by mouth three* CEPHALEXIN 500 MG CAPSULE EVERY 6 HOURS COMPOUNDED PRESCRIPTION ResMed AirCurve 10 S VPAP mac* ATORVASTATIN 10 MG TABLET Take 1 tablet by mouth once d* AMITRIPTYLINE 10 MG TABLET Take 1 tablet by mouth daily * CYCLOBENZAPRINE 10 MG TABLET Take 1 tablet by mouth three * ACETAMINOPHEN 500 MG TABLET Take 1 tablet by mouth every * Problem List As Of Date 04/05/2020 Noted Resolved Seborrheic dermatitis [L21.9] 03/28/2013 Rosacea [L71.9] 03/28/2013 Diabetes mellitus, type 2 (HCC) [E11.9] 03/29/2013 HTN (hypertension) [I10] 03/29/2013 Hyperlipidemia [E78.5] 03/29/2013 Obesity [E66.9] 03/29/2013 Family history of colon cancer [Z80.0] More... Family history of premature coronary artery dis* More... History of colon polyps [Z86.010] 03/07/2013 Vitamin D deficiency [E55.9] Anal fissure [K60.2] 07/31/2014 Abdominal pain, unspecified site [R10.9] 05/12/2015 Arthritis, hip [M16.10] Sural neuropathy [G57.90] 06/02/2015 Right leg pain [M79.604] 06/07/2015 Skin lesion, superficial [L98.9] 06/15/2015 Primary osteoarthritis of right hip [M16.11] 09/06/2015 Abnormal brain MRI [R90.89] 07/09/2017 Peripheral polyneuropathy (HCC) [G62.9] 07/09/2017 Pacemaker [Z95.0] 08/24/2019 Sick sinus syndrome (HCC) [I49.5] 08/24/2019 CT (obstructive sleep apnea) [G47.33] 08/24/2019 Obesity, Class III, BMI >= 40 [E66.01] 09/19/2019 Encounter Status:Closed by EDILBERTO HERNANDEZ RN on 04/05/20 obsolete on 2020-03 OBSOLETE Refill (FAMPWS) Normal 03-26-2020 [facility] ABE STEVENSON ([id number]) 1960 [facility] Date Time Provider Department ([id number]) 03/26/20 [facility] ROGERS [facility] During your visit today, we recorded the following informati on about you: Val Dumont 03/26/2020 11:06 AM Signed Patient has been identified by name and date of : Yes Last office visit in this department: 10/19/2019 RX INSTRUCTIONS: Patient aware RX will be sent to pharmacy. No need to notify patient. Patient phones requesting refills as follows: Pending Prescriptions Disp Refills AMLODIPINE 10 MG TABLET 30 tablet 5 Sig: Take 1 tablet by mouth once daily. ASHLEY: No Please review and advise. Val Lloyd MA 03/26/2020 4:55 PM Signed Last Rx: 08/24/19 #30 w/5. Macie Rogers MD 03/26/2020 4:57 PM Signed OK to refill as ordered MD Adriana Lance Ma 03/27/2020 8:35 AM Signed The following approved medic ation requests have been transmitted electronically. Signed Prescriptions Disp Refills amLODIPine (NORVASC) 10 mg tablet 30 tablet 5 Sig: Take 1 tablet by mouth once daily. ASHLEY: No Authorizing Provider: CARLY ROGERS Ma Allergies As of Date: 03/26/2020 Noted Allergy Reaction ENALAPRIL 01/17/2013 3 - Cough Date Reviewed: 03/23/2020 Reviewed by: Adriana Haider Ma - Fully Assessed Reason for Visit: Refill Request [94] Visit Diagnosis:Essential hypertension [I10] Order(s):amLODIPine (NORVASC) 10 mg tabletTake 1 tablet by m out once daily.Disp: 30 tabletRfl: 5 Prescriptions as of 03/26/2020 Sig: AMLODIPINE 10 MG TABLET Take 1 tablet by mouth once d* AZITHROMYCIN 250 MG TABLET Take 2 tablets day one, then,* BENZONATATE 100 MG CAPSULE Take 1 capsule by mouth three* CEPHALEXIN 500 MG CAPSULE EVERY 6 HOURS COMPOUNDED PRESCRIPTION ResMed AirCurve 10 S VPAP mac* ATORVASTATIN 10 MG TABLET Take 1 tablet by mouth once d* AMITRIPTYLINE 10 MG TABLET Take 1 tablet by mouth daily * CYCLOBENZAPRINE 10 MG TABLET Take 1 tablet by mouth three * ACETAMINOPHEN 500 MG TABLET Take 1 tablet by mouth every * Problem List As Of Date 03/26/2020 Noted Resolved Seborrheic dermatitis [L21.9] 03/28/2013 Rosacea [L71.9] 03/28/2013 Diabetes mellitus, type 2 (HCC) [E11.9] 03/29/2013 HTN (hypertension) [I10] 03/29/2013 Hyperlipidemia [E78.5] 03/29/2013 Obesity [E66.9] 03/29/2013 Family history of colon cancer [Z80.0] More... Family history of premature coronary artery dis* More... History of colon polyps [Z86.010] 03/07/2013 Vitamin D deficiency [E55.9] Anal fissure [K60.2] 07/31/2014 Abdominal pain, unspecified site [R10.9] 05/12/2015 Arthritis, hip [M16.10] Sural neuropathy [G57.90] 06/02/2015 Right leg pain [M79.604] 06/07/2015 Skin lesion, superficial [L98.9] 06/15/2015 Primary osteoarthritis of right hip [M16.11] 09/06/2015 Abnormal brain MRI [R90.89] 07/09/2017 Peripheral polyneuropathy (HCC) [G62.9] 07/09/2017 Pacemaker [Z95.0] 08/24/2019 Sick sinus syndrome (HCC) [I49.5] 08/24/2019 CT (obstructive sleep apnea) [G47.33] 08/24/2019 Obesity, Class III, BMI >= 40 [E66.01] 09/19/2019 Prescriptions ordered this encounter Disp Refills Start End AMLODIPINE 10 MG TABLET 30 t* 5 03/26/2020 Route: ORAL Sig: Take 1 tablet by mouth once daily. Medications Discontinued During This Encounter amLODIPine (NORVASC) 10 mg tablet 30 t* 5 08/24/2019 0 Route: ORAL Sig: Take 1 tablet by mouth once daily. Disc: Reason for discontinue is not on file. Encounter Status:Closed by ADRIANA HAIDER MA on 03/27/20 progress on 2020-03 PROGRESS HNO ID: [id number] Normal 03-23-2020 [facility] Author: Carly Rogers [place] ([id number]) Service: ? Author Type: Physician Type: Progress Notes Filed: 03/23/2020 8:58 AM Note Text: This Team Access Model visit is a phone encounter. It requir ed patient-provider interaction for the medical decision making as documented below. Chief Complaint Patient presents with: Cough: dry cough Abscess: inner right thigh HPI: This Team Access Model visit is a virtual/phone encount er. It required patient-provider interaction for the medical decisi on making as documented below. Patient was offered a virtual/telemedicine appointment in lieu of an office visit due to recommendations to reduce patient exposure to COVID-19. Patient is aware of limitations of per forming the visit without a face to face visit in the office setting and agrees. Abscess: Pt c/o of abscess to right inner thigh. Stated she was bitten by a spider and went to [facility] ER last year in June 12, 2019, she developed an abscess in that area in Oct and was treated with the zpak [facility]. She states that this has flared up again with another abscess. S he has been applying some OTC ointments and Bactroban ointment. She stat es that when the abscess started draining she treated with aby manuel felt that the back of the thigh was warm. That has resolved. She feels that the abscess has dried up some, no drainage at this time. Denies much pain. ? She says she has 2 artificial hips that were placed in 2016. Cough: She wants the cough pills for the dry cough she dharmesh tiffany to have. The charleson [place] do help. Pt is a smoker, half ppd. Doing well; living [facility], looking for apartment ; stress level good. Past medical history, appointments, medications, allergies nancy parisi. Previous Medical History PAST MEDICAL HISTORY Diagnosis Date - Arthritis, hip - Diabetes mellitus (HCC) 03/2012 - Family history of colon cancer Father 55 - Family history of premature coronary artery disease mother [place] at 50 - History of colon polyps 03/07/2013 - HTN (hypertension) - Hyperlipemia - Obesity - Rosacea - Seborrheic dermatitis - Vitamin D deficiency Previous Surgical History PAST SURGICAL HISTORY Procedure Laterality Date - COLONOSCOPY AND POLYPECTOMY 03/07/13 repeat due 2017, tubular adenoma - PAST SURGICAL HISTORY OF cyst removed from uterus while - TOTAL HIP JOINT REPLACEMENT Left 02/2018 [facility] - TOTAL HIP JOINT REPLACEMENT Right 06/2018 [facility] Family History FAMILY HISTORY Problem Relation Age of Onset - Coronary Artery Disease Mother 50 [place] - Diabetes Mother 40 age 68 - Colon Cancer Father 55 age 58 - Diabetes Sister 60 - Arthritis Sister - Osteoporosis Sister Patient Allergies ALLERGIES Allergen Reactions - Enalapril Cough Current Medications Current Outpatient Medications on File Prior to Visit Medication Sig - cephALEXin (KEFLEX) 500 mg capsule EVERY 6 HOURS - COMPOUNDED PRESCRIPTION GeoTracMed AirCurve 10 S VPAP machine with heated humidity and heated tubing. Pressure set to 22/16 cm H2O. tradeNOW. - atorvastatin (LIPITOR) 10 mg tablet Take 1 tablet by mouth once daily. - amLODIPine (NORVASC) 10 mg tablet Take 1 tablet by mouth o nce daily. - amitriptyline (ELAVIL) 10 mg tablet Take 1 tablet by mouth daily at bedtime. - cyclobenzaprine (FLEXERIL) 10 mg tablet Take 1 tablet by m outh three times daily as needed. - acetaminophen (TYLENOL EXTRA STRENGTH) 500 mg tablet Take 1 tablet by mouth every 6 hours as needed for Pain. (Patient not taking: Reported on 11/20/2019 ) No current facility-administered medications on file prior t o visit. Social History Social History Tobacco Use - Smoking status: Current Every Day Smoker Packs/day: 0.50 Years: 15.00 Pack years: 7.50 Types: Cigarettes - Smokeless tobacco: Never Used - Tobacco comment: 10 cigarettes per day Substance Use Topics - Alcohol use: No Comment: 2 drinks/month - Drug use: No EXAM: There were no vitals taken for this visit. Health Maintenance List DTAP,TDAP,TD(1 - Tdap) due on 1971 HIV SCREENING due on 1978 HEPATITIS C SCREENING due on 2004 SHINGRIX VACCINE(1 of 2) due on 2010 DILATED RETINAL EXAM due on 11/12/2017 COLORECTAL CANCER SCREENING,SEE MODIFIER due on 03/07/2018 HPV TESTING due on 07/11/2018 URINE ALBUMIN:CREATININE RATIO due on 04/19/2020 DIABETIC FOOT EXAM due on 04/19/2020 HBA1C due on 06/15/2020 MAMMOGRAM due on 09/19/2020 ANNUAL PCP TEAM CHRONIC DISEASE VISIT due on 10/19/2020 BP CONTROLLED (<130/80) due on 11/20/2020 LDL CHOLESTEROL due on 12/16/2020 PAP TESTING due on 09/19/2024 ONE PNEUMOVAX PRIOR TO AGE 65 Completed INFLUENZA Completed Data reviewed none ASSESSMENT/PLAN: 1. Abscess of leg, right - ICD9: 682.6, ICD10: L02.415 (prim abril diagnosis) - Begin treatment with Zpak; this has worked well for her in the past - AZITHROMYCIN 250 MG TABLET 2. Cough - ICD9: 786.2, ICD10: R05 - BENZONATATE 100 MG CAPSULE Follow up in 1 month for routine check; labs prior 5-10 minutes of time spent on phone call I agree with the Chief Complaint, ROS, and Past Histories in dependently gathered by the clinical operations support professionals and the remaining scr ibed note accurately describes my personal service to the patient. Carly Rogers MD The documentation for this note was completed by Adriana chris Ma acting as scribe for Carly Rogers MD. March 23, 2020 8:46 AM. Adriana Haider Ma obsolete on 2020-03 OBSOLETE Refill (FAMPWS) Normal 03-22-2020 [facility] ABE STEVENSON ([id number]) 1960 [place] Date Time Provider Department ([id number]) 03/22/20 CARLY ROGERS During your visit today, we recorded the following informati on about you: Cata Kirk Pss 03/22/2020 2:08 PM Signed Patient has been identified by name and date of : Yes Last office visit in this department: 10/19/2019 RX INSTRUCTIONS: Patient aware RX will be sent to pharmacy. No need to notify patient. Patient requesting medication refill of tessalon perles and zithromax. Medication listed in history. Patient phones requesting refills as follows: No medications selected for refill. Please review and advise. Cata Rogers MD 03/22/2020 2:58 PM Signed Why does she want a refill on these? If she is sick she shou ld have a phone/virtual appt to evaluate. MD Adrinaa Lance Ma 03/22/2020 3:24 PM Signed Spoke with pt, she states she was bitten by a spider and went to [facility] last year in June 12 2019, she developed an abscess in christina t area in Oct and was treated with the zpak. She states that this has flared up again. She has been applying some OTCointments. Right inner thigh. She say s she has 2 artificial hips that were placed in 2016. She wants the cough pills for the dry cough she has. Pt scheduled tomorrow. Adriana Haider Ma Allergies As of Date: 03/22/2020 Noted Allergy Reaction ENALAPRIL 01/17/2013 3 - Cough Date Reviewed: 11/20/2019 Reviewed by: Dinorah Milligan Forge Helper - Fully Assessed Reason for Visit: Refill Request [94] Visit Diagnoses:Bronchitis [J40] Persistent cough for 3 weeks or longer [R05] Prescriptions as of 03/22/2020 Sig: CEPHALEXIN 500 MG CAPSULE EVERY 6 HOURS COMPOUNDED PRESCRIPTION ResMed AirCurve 10 S VPAP mac* ATORVASTATIN 10 MG TABLET Take 1 tablet by mouth once d* AMLODIPINE 10 MG TABLET Take 1 tablet by mouth once d* AMITRIPTYLINE 10 MG TABLET Take 1 tablet by mouth daily * CYCLOBENZAPRINE 10 MG TABLET Take 1 tablet by mouth three * ACETAMINOPHEN 500 MG TABLET Take 1 tablet by mouth every * Patient not taking: Reported on 11/20/2019 Problem List As Of Date 03/22/2020 Noted Resolved Seborrheic dermatitis [L21.9] 03/28/2013 Rosacea [L71.9] 03/28/2013 Diabetes mellitus, type 2 (HCC) [E11.9] 03/29/2013 HTN (hypertension) [I10] 03/29/2013 Hyperlipidemia [E78.5] 03/29/2013 Obesity [E66.9] 03/29/2013 Family history of colon cancer [Z80.0] More... Family history of premature coronary artery dis* More... History of colon polyps [Z86.010] 03/07/2013 Vitamin D deficiency [E55.9] Anal fissure [K60.2] 07/31/2014 Abdominal pain, unspecified site [R10.9] 05/12/2015 Arthritis, hip [M16.10] Sural neuropathy [G57.90] 06/02/2015 Right leg pain [M79.604] 06/07/2015 Skin lesion, superficial [L98.9] 06/15/2015 Primary osteoarthritis of right hip [M16.11] 09/06/2015 Abnormal brain MRI [R90.89] 07/09/2017 Peripheral polyneuropathy (HCC) [G62.9] 07/09/2017 Pacemaker [Z95.0] 08/24/2019 Sick sinus syndrome (HCC) [I49.5] 08/24/2019 CT (obstructive sleep apnea) [G47.33] 08/24/2019 Obesity, Class III, BMI >= 40 [E66.01] 09/19/2019 Encounter Status:Closed by ADRIANA HAIDER MA on 03/22/20 arnoldn on 2020-02-06 [facility]) Normal 02-06-2020 [facility] ABE STEVENSON ([id number]) 1960 [facility] Date Time Provider Department ([id number]) 02/06/20 REG BOWERS (ARNOLD) MICHPWS During your visit today, we recorded the following informati on about you: Reg Bowers APRN.ARNOLD 02/06/2020 8:55 AM Signed Please inform patient that liver enzyme has almo st returned to normal. Likely related to fatty liver. I would recommend that we monitor th is reading and repeat in 3 months. Lab ordered. SHANTELLE Freeman MA 02/06/2020 9:22 AM Signed Called and reached 180's number. They ar e verifying pt and will have her reach us back. This is number on file? Macie Smith RN, RN 02/06/2020 9:37 AM Signed Patient notified of results and provider's instructions. P atient verbalizes understanding. DORINA Moore RN 02/20/2020 10:57 AM Signed Pt called, verified by name and birthdate. Pt states s he was not given below message. Patient notified of results and provider's instruct ions. Patient verbalizes understanding. Bea Santana RN Allergies As of Date: 02/06/2020 Noted Allergy Reaction ENALAPRIL 01/17/2013 3 - Cough Date Reviewed: 11/20/2019 Reviewed by: Dinorah Milligan Forge Helper - Fully Assessed Reason for Visit: Results [95] Primary Visit Diagnosis:Elevated liver enzymes [R74.8] Other Visit Diagnoses:Essential hypertension [I10] Type 2 diabetes mellitus without complication, without long-term current use of insulin (HCC) [E11.9] Order(s):HGB A1C [HBPDL1N] Order #: [id number] FUTURE COMP METABOLIC PANEL [SQCMP] Order #: [id number] FUTURE ALBUMIN/CREAT RATIO RND UR [SQUACR] Order #: [id number] FUTU RE Prescriptions as of 02/06/2020 Sig: CEPHALEXIN 500 MG CAPSULE EVERY 6 HOURS COMPOUNDED PRESCRIPTION ResMed AirCurve 10 S VPAP mac* ATORVASTATIN 10 MG TABLET Take 1 tablet by mouth once d* AMLODIPINE 10 MG TABLET Take 1 tablet by mouth once d* AMITRIPTYLINE 10 MG TABLET Take 1 tablet by mouth daily * CYCLOBENZAPRINE 10 MG TABLET Take 1 tablet by mouth three * ACETAMINOPHEN 500 MG TABLET Take 1 tablet by mouth every * Patient not taking: Reported on 11/20/2019 Problem List As Of Date 02/06/2020 Noted Resolved Seborrheic dermatitis [L21.9] 03/28/2013 Rosacea [L71.9] 03/28/2013 Diabetes mellitus, type 2 (HCC) [E11.9] 03/29/2013 HTN (hypertension) [I10] 03/29/2013 Hyperlipidemia [E78.5] 03/29/2013 Obesity [E66.9] 03/29/2013 Family history of colon cancer [Z80.0] More... Family history of premature coronary artery dis* More... History of colon polyps [Z86.010] 03/07/2013 Vitamin D deficiency [E55.9] Anal fissure [K60.2] 07/31/2014 Abdominal pain, unspecified site [R10.9] 05/12/2015 Arthritis, hip [M16.10] Sural neuropathy [G57.90] 06/02/2015 Right leg pain [M79.604] 06/07/2015 Skin lesion, superficial [L98.9] 06/15/2015 Primary osteoarthritis of right hip [M16.11] 09/06/2015 Abnormal brain MRI [R90.89] 07/09/2017 Peripheral polyneuropathy (HCC) [G62.9] 07/09/2017 Pacemaker [Z95.0] 08/24/2019 Sick sinus syndrome (HCC) [I49.5] 08/24/2019 CT (obstructive sleep apnea) [G47.33] 08/24/2019 Obesity, Class III, BMI >= 40 [E66.01] 09/19/2019 Encounter Status:Closed by CARLEY SMITH on 02/06/20 mitochondrial ab pnl on 2020-02-02 Mitochondrial Ab Pnl Negative Negative Normal 0 [facility] ([id number]) Comment: Result Comment: Normal range : negative at a 1:20 serum dilution. Performed By: #### DEWAYNE, ALK P ####[facility] [place] [address] [phone] alkaline phosphatase on 2020-02-02 ALP [Catalytic activity/Vol] 142 34-123 U/L High 0 02-02-2020 [facility] ([id number]) Comment: Performed By: #### DEWAYNE, ALK P ####[facility] [id number] [place], [place] [phone] us abd spleen -nb o n 2020-01-26 US ABD SPLEEN * * *Final Report* * * Normal [facility] - DATE OF EXAM: Jan 26 2020 7:39AM [place] ([id number]) WRU 1232 - US ABD SPLEEN -NB / PROCEDURE REASON: Elevated serum alkaline phosphatase level * * * * Physician Interpretation * * * * EXAMINATION: RIGHT UPPER QUADRANT AND SPLEEN ULTRASOUND CLINICAL HISTORY: Elevated serum alkaline phosphatase level TECHNIQUE: Sonography of the right upper quadrant and spleen was performed. Images were obtained and stored in a permanent ar chive. MQ: [id number] COMPARISON: CT abdomen and pelvis dated 01/02/2017. RESULT: Pancreas: Normal sonographic appearance. Portions obscured: tail Liver: Echotexture: Normal, homogeneous. Echogenicity: Increased Surface contour: Smooth Lesions: Presumed regions of focal fatty sparing are seen wi thin the liver, adjacent dylan hepatis, measuring approximately 2 .3 x 1.0 x 2.1 cm and adjacent to gallbladder fossa, measuring approxim ately 1.7 x 1.3 x 1.6 cm.. Biliary: No intrahepatic biliary duct dilation. CBD: 0.4 cm at the hilum. Gallbladder: Normal caliber -Contents: No cholelithiasis -Wall: Normal -Other: No pericholecystic fluid. Kidneys: No hydronephrosis. The right kidney measures approx imately 10.1 cm. The left kidney measures approximately 12.5 cm. Ascites: None. Spleen: The craniocaudal length of the spleen is 9.2 cm, nor mal. There are no splenic lesions. IMPRESSION: Findings suggesting fatty infiltration of the li linda, with presumed region of focal fatty sparing seen adjacent to the dylan hepatis as well as adjacent to gallbladder fossa. No cholelithiasis or convincing sonographic evidence for acu te cholecystitis. No biliary dilation. No splenomegaly or focal splenic mass. Casting Operator: YOSSI Transcribe Date/Time: Jan 26 2020 7:46A Dictated by : GLORIA BROWN MD This examination was interpreted and the report reviewed and electronically signed by: GLORIA BROWN MD on Jan 26 2020 7:48AM EST [id number] us abd right upper quadrant on 2020-01-26 US ABD RIGHT * * *Final Report* * * Normal 01-14 [facility] UPPER QUADRANT DATE OF EXAM: Jan 26 2020 7:39AM [place] ([id number]) WRU 1032 - US ABD RIGHT UPPER QUADRANT / 13 PROCEDURE REASON: Elevated serum alkaline phosphatase level * * * * Physician Interpretation * * * * EXAMINATION: RIGHT UPPER QUADRANT AND SPLEEN ULTRASOUND CLINICAL HISTORY: Elevated serum alkaline phosphatase level TECHNIQUE: Sonography of the right upper quadrant and spleen was performed. Images were obtained and stored in a permanent ar chive. MQ: [id number] COMPARISON: CT abdomen and pelvis dated 01/02/2017. RESULT: Pancreas: Normal sonographic appearance. Portions obscured: tail Liver: Echotexture: Normal, homogeneous. Echogenicity: Increased Surface contour: Smooth Lesions: Presumed regions of focal fatty sparing are seen wi thin the liver, adjacent dylan hepatis, measuring approximately 2 .3 x 1.0 x 2.1 cm and adjacent to gallbladder fossa, measuring approxim ately 1.7 x 1.3 x 1.6 cm.. Biliary: No intrahepatic biliary duct dilation. CBD: 0.4 cm at the hilum. Gallbladder: Normal caliber -Contents: No cholelithiasis -Wall: Normal -Other: No pericholecystic fluid. Kidneys: No hydronephrosis. The right kidney measures approx imately 10.1 cm. The left kidney measures approximately 12.5 cm. Ascites: None. Spleen: The craniocaudal length of the spleen is 9.2 cm, nor mal. There are no splenic lesions. IMPRESSION: Findings suggesting fatty infiltration of the li linda, with presumed region of focal fatty sparing seen adjacent to the dylan hepatis as well as adjacent to gallbladder fossa. No cholelithiasis or convincing sonographic evidence for acu te cholecystitis. No biliary dilation. No splenomegaly or focal splenic mass. Casting Operator: YOSSI Transcribe Date/Time: Jan 26 2020 7:46A Dictated by : GLORIA BROWN MD This examination was interpreted and the report reviewed and electronically signed by: GLORIA BROWN MD on Jan 26 2020 7:48AM EST [id number] progress on 2020-01 PROGRESS HNO ID: [id number] Normal 01-26-2020 [facility] Author: Breanna Fragoso (Tech) [facility] ([id number]) Service: ? Author Type: Marker Assembler Type: Progress Notes Filed: 01/26/2020 7:41 AM Note Text: Radiology Service Progress Note PATIENT NAME: Abe Stevenson DATE OF SERVICE: January 26, 2020 TIME: 7:41 AM PATIENT IDENTITY VERIFICATION COMPLETED USING TWO (2) IDENTI FIERS: Name and Date of confirmed by patient verbally. PATIENT GENDER DATA: Female. status: : No status: NO. PATIENT RELEVANT IMPLANT DATA REVIEWED: Not Applicable RADIOLOGY DEPARTMENT: Ultrasound PERIPHERAL IV DATA: Not applicable SIGNED BY: Cyndi Noland January 26, 2020 7:41 AM cnpn on 2020-01-26 [facility]) Normal 01-26-2020 [place] ABE STEVENSON ([id number]) 1960 [facility] Time Provider Department ([id number]) 01/26/20 REG BOWERS ([facility]) FAM[facility] During your visit today, we recorded the following informati on about you: Reg Bowers APRN.CNP 01/26/2020 9:20 AM Signed Please inform patient that her liver ultrasound is showing a fatty liver present. No splenic mass. We should get another blood test to further assess. Please have her perform the testing fasting. SHANTELLE Freeman Ma 01/26/2020 9:43 AM Signed Letter mailed to home of results. Adriana Haider MA Allergies As of Date: 01/26/2020 Noted Allergy Reaction ENALAPRIL 01/17/2013 3 - Cough Date Reviewed: 11/20/2019 Reviewed by: Dinorah Milligan Forge Helper - Fully Assessed Reason for Visit: Results [95] Primary Visit Diagnosis:Elevated liver enzymes [R74.8] Other Visit Diagnosis:Elevated alkaline phosphatase level [R 74.8] Order(s):MITOCHONDRIAL AB PNL SCRN [SQMITO] Order #: [id number] FUTURE ALKALINE PHOSPHATASE [SQALKP] Order #: [id number] FUTURE Prescriptions as of 01/26/2020 Sig: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 Lives in homeless mcc - ICD9: V60.0, ICD10: Z59.0 See above. Michele Acuna APRN.CNP Greater than 50% of this visit was spent in education and co unseling [id number] with patient. This note was completed with viaCycle dictation software. Note was reviewed for accuracy. There may be minor misspellings or gr ammar miscues with viaCycle Dictation. To ER if develops chest pain, shortness of breath, or severe worsening of symptoms. Discussed risks, benefits, alternatives, and potential side effects of medications. Patient expressed understanding and agreed with the plan. Michele Acuna APRN.RESEARCH METHODS INSTRUCTOR [address] [place] [address] cnov on 2019-10-19 CNOV Office Visit (FAMPWS) Normal 10-19-20 19 [facility] ABE STEVENSON ([id number]) 1960 [facility] Date Time Provider Department ([id number]) 10/19/19 2:40 PM MICHELE ACUNA (ARNOLD) FAMPWS During your visit today, we recorded the following informati on about you: Temperature Pulse Respiration Blood pressure 97.7 degrees 90/minute 16/minute 126/84 Weight 109.3 kg Michele Acuna APRN.CNP 10/20/2019 4:38 PM Signed Patient presents with: F/U 6 Month HPI: Abe Stevenson is a 59 year old female who presents to the office today for review of health conditions. Is an established patient of Dr. Rogers and new to me today. Concerns today: Dx with bronchitis in [place], still has cough 2 months later. Denies shortness of breath. Coughs all n ight long, less during the day, but is wearing depends during the day r/t stress incontinence with her coughing. Non-productive. She would like to start Byetta because s he just now realizes that Her A1C from April is 6.3. States she has never been this high and h as been gaining weight as well. Is staying in a mcc with the [employer] right now because she got sick from [place]. Her family is not reacting well to this. Her son has been put in group home fo r 10 years to life for raping a 12 year old special needs girl. States she is walking around feeling like she is just in a continuous nightma re. Is feeling very depressed and like she is walking around in a surreal nightmare. We nt to [facility] about a month ago and completed the intak e process. She is waiting for a call to start meeting with a counselor. Dr. Rogers sta rted her on Prozac, but she only took it once. She had a friend who comm itted suicide because she was taking Prozac. Denies suicidal or homicidal ideations. Last 3 Encounter BP Readings: Date: BP: 10/19/2019 126/84 09/19/2019 142/84 08/24/2019 130/80 PAST MEDICAL HISTORY Diagnosis Date - Arthritis, hip - Diabetes mellitus (HCC) 03/2012 - Family history of colon cancer Father 55 - Family history of premature coronary artery disease mother PR at 50 - History of colon polyps 03/07/2013 - HTN (hypertension) - Hyperlipemia - Obesity - Rosacea - Seborrheic dermatitis - Vitamin D deficiency PAST SURGICAL HISTORY Procedure Laterality Date - COLONOSCOPY AND POLYPECTOMY 03/07/13 repeat due 2018, tubular adenoma - PAST SURGICAL HISTORY OF cyst removed from uterus while - TOTAL HIP JOINT REPLACEMENT Left 02/2018 [facility] - TOTAL HIP JOINT REPLACEMENT Right 06/2018 [facility] Social History Tobacco Use - Smoking status: Current Every Day Smoker Packs/day: 0.50 Years: 15.00 Pack years: 7.50 Types: Cigarettes - Smokeless tobacco: Never Used - Tobacco comment: 10 cigarettes per day Substance Use Topics - Alcohol use: No Comment: 2 drinks/month - Drug use: No FAMILY HISTORY Problem Relation Age of Onset - Coronary Artery Disease Mother 50 PR - Diabetes Mother 40 age 68 - Colon Cancer Father 55 age 58 - Diabetes Sister 60 - Arthritis Sister - Osteoporosis Sister Allergies: ALLERGIES Allergen Reactions - Enalapril Cough Current Meds: losartan (COZAAR) 50 mg tablet Take 1 tablet by mouth twice daily. atorvastatin (LIPITOR) 10 mg tablet Take 1 tablet by mouth o nce daily. amLODIPine (NORVASC) 10 mg tablet Take 1 tablet by mouth onc e daily. amitriptyline (ELAVIL) 10 mg tablet Take 1 tablet by m outh daily at bedtime. cyclobenzaprine (FLEXERIL) 10 mg tablet Take 1 tablet by cristiano th three times daily as needed. COMPOUNDED PRESCRIPTION ResMed AirCurve 10 S VPAP machine with heated humidity and heated tubing. Pressure set to 22/16 cm H2O. [employer] C ompany. acetaminophen (TYLENOL EXTRA STRENGTH) 500 mg tablet Take 1 tablet by mouth every 6 hours as needed for Pain. Review of Systems Constitutional: Negative. HENT: Negative. Eyes: Negative. Respiratory: Positive for cough, chest tightness and shortne ss of breath. Cardiovascular: Negative. Gastrointestinal: Negative. Endocrine: Negative. Genitourinary: Negative. Musculoskeletal: Negative. Neurological: Negative. Psychiatric/Behavioral: Negative for suicidal ideas. Depressed PE: 10/19/19 1407 BP: 126/84 Pulse: 90 Resp: 16 Temp: 36.5 ?C (97.7 ?F) TempSrc: Left Tympanic SpO2: 98% Weight: 109.3 kg (241 lb) Physical Exam Constitutional: Appearance: She is obese. Comments: Moderately disheveled appearance HENT: Head: Normocephalic and atraumatic. Right Ear: Tympanic membrane, ear canal and external ear nor mal. Left Ear: Tympanic membrane, ear canal and external ear norm al. Nose: Nose normal. Mouth/Throat: Mouth: Mucous membranes are moist. Pharynx: Oropharynx is clear. Eyes: Extraocular Movements: Extraocular movements intact. Conjunctiva/sclera: Conjunctivae normal. Pupils: Pupils are equal, round, and reactive to light. Neck: Musculoskeletal: Normal range of motion and neck supple. Cardiovascular: Rate and Rhythm: Normal rate and regular rhythm. Pulses: Normal pulses. Heart sounds: Normal heart sounds. Pulmonary: Effort: Pulmonary effort is normal. Breath sounds: Normal breath sounds. Comments: Frequent dry hacky cough Abdominal: General: Bowel sounds are normal. Palpations: Abdomen is soft. Musculoskeletal: Normal range of motion. Skin: General: Skin is warm and dry. Capillary Refill: Capillary refill takes less than 2 seconds . Neurological: General: No focal deficit present. Mental Status: She is alert and oriented to person, place, a nd time. Psychiatric: Attention and Perception: Attention and perception normal. Mood and Affect: Mood is depressed. Affect is flat and tearf ul. Speech: Speech is rapid and pressured. Behavior: Behavior normal. Behavior is cooperative. Cognition and Memory: Cognition and memory normal. Judgment: Judgment normal. Comments: Flight of ideas-moving from one story/concern to the next without breaking sentence or thought ASSESSMENT/PLAN: 1. Bronchitis - ICD9: 490, ICD10: J40 (primary diagnosis) Giorgio Quintanilla prescribed for the cough, Z-Diana given as h is cough has been going on for about 2 months. Will obtain chest x-ray as well, she has concerns for pneumonia. She will return if not improved in 2-4 weeks. - BENZONATATE 100 MG CAPSULE - XR RIBS/CHEST 3V AP RIB/OBLS/CXR RT - AZITHROMYCIN 250 MG TABLET 2. Persistent cough for 3 weeks or longer - ICD9: 786.2, ICD 10: R05 See above. - BENZONATATE 100 MG CAPSULE - XR RIBS/CHEST 3V AP RIB/OBLS/CXR RT - AZITHROMYCIN 250 MG TABLET 3. Depression, unspecified depression type - ICD9: 311, ICD1 0: F32.9 Significant depression at this point. Mariel best is living in a homeless mcc, her family is very unsupportive, and her son is in long term. States she walks around as if in a terrible nightmare and none o f this is real. She refuses counseling and medication. States counseling has not helped in the past , and feels medication makes you worse, as one of her friends committed suicide well taking Prozac approximately 20 years ago. Did irvin iscuss suicidal thoughts with her, and she states she has been the past, but none at present time. 4. Lives in homeless mcc - ICD9: V60.0, ICD10: Z59.0 See above. Michele Acuna APRN.RESEARCH METHODS INSTRUCTOR Greater than 50% of this visit was spent in education and co unseling [id number] with patient. This note was completed with Twinklr software. Note was reviewed for accuracy. There may be minor misspellings or gramm ar miscues with viaCycle Dictation. To ER if develops chest pain, shortness of breath, or severe worsening of symptoms. Discussed risks, benefits, alternatives, and potential side effects of medications. Patient expressed understanding and agreed with the plan. Michele Acuna APRN.RESEARCH METHODS INSTRUCTOR [address] [place] [address] Michele Acuna APRN.CNP 10/19/2019 3:04 PM Signed Have your labs drawn in the morning, when you are fasting. Black coffee and water are ok. You can get your xray today in urgent care. I will call with results once I receive them, in the next da y or two. We can discuss Byetta at that time. Referring Provider: CARLY ROGERS [[id number]] Allergies As of Date: 10/19/2019 Noted Allergy Reaction ENALAPRIL 01/17/2013 3 - Cough Date Reviewed: 10/19/2019 Reviewed by: Shameka Hardin Ma - Fully Assessed Reason for Visit: F/U 6 Month [444] Primary Visit Diagnosis:Bronchitis [J40] Other Visit Diagnoses:Persistent cough for 3 weeks or longer [R05] Depression, unspecified depression type [F32.9] Lives in homeless mcc [Z59.0] Order(s):benzonatate (TESSALON PERLES) 100 mg capsuleT rafiq 1 capsule by mouth three times daily as needed for Cough.Disp: 60 capsuleRfl: 1 XR RIBS/CHEST 3V AP RIB/OBLS/CXR RT [[id number]] Order #: [id number] FUTURE azithromycin (ZITHROMAX Z-DIANA) 250 mg tabletTake 2 tablets d ay one, then, 1 tablet daily until gone.Disp: 1 PackageRfl: 0 Prescriptions as of 10/19/2019 Sig: ATORVASTATIN 10 MG TABLET Take 1 tablet by mouth once d* AMLODIPINE 10 MG TABLET Take 1 tablet by mouth once d* AMITRIPTYLINE 10 MG TABLET Take 1 tablet by mouth daily * CYCLOBENZAPRINE 10 MG TABLET Take 1 tablet by mouth three * BENZONATATE 100 MG CAPSULE Take 1 capsule by mouth three* AZITHROMYCIN 250 MG TABLET Take 2 tablets day one, then,* COMPOUNDED PRESCRIPTION ResMed AirCurve 10 S VPAP mac* ACETAMINOPHEN 500 MG TABLET Take 1 tablet by mouth every * Problem List As Of Date 10/19/2019 Noted Resolved Seborrheic dermatitis [L21.9] 03/28/2013 Rosacea [L71.9] 03/28/2013 Diabetes mellitus, type 2 (HCC) [E11.9] 03/29/2013 HTN (hypertension) [I10] 03/29/2013 Hyperlipidemia [E78.5] 03/29/2013 Obesity [E66.9] 03/29/2013 Family history of colon cancer [Z80.0] More... Family history of premature coronary artery dis* More... History of colon polyps [Z86.010] 03/07/2013 Vitamin D deficiency [E55.9] Anal fissure [K60.2] 07/31/2014 Abdominal pain, unspecified site [R10.9] 05/12/2015 Arthritis, hip [M16.10] Sural neuropathy [G57.90] 06/02/2015 Right leg pain [M79.604] 06/07/2015 Skin lesion, superficial [L98.9] 06/15/2015 Primary osteoarthritis of right hip [M16.11] 09/06/2015 Abnormal brain MRI [R90.89] 07/09/2017 Peripheral polyneuropathy (HCC) [G62.9] 07/09/2017 Pacemaker [Z95.0] 08/24/2019 Sick sinus syndrome (HCC) [I49.5] 08/24/2019 CT (obstructive sleep apnea) [G47.33] 08/24/2019 Obesity, Class III, BMI >= 40 [E66.01] 09/19/2019 Other instructions from your clinician: Have your labs drawn in the morning, when you are fasting. B lack coffee and water are ok. You can get your xray today in urgent care. I will call with results once I receive them, in the next da y or two. We can discuss Byetta at that time. Prescriptions ordered this encounter Disp Refills Start End BENZONATATE 100 MG CAPSULE 60 c* 1 10/19/2019 11/18/2019 Route: ORAL Sig: Take 1 capsule by mouth three times daily as needed for Cough. AZITHROMYCIN 250 MG TABLET 1 Pa* 0 10/19/2019 10/24/2019 Sig: Take 2 tablets day one, then, 1 tablet daily until gone . Medications Discontinued During This Encounter losartan (COZAAR) 50 mg tablet 60 t* 5 08/24/2019 10/19/2019 Route: ORAL Sig: Take 1 tablet by mouth twice daily. Disc: Course of therapy completed Disposition: Return in about 6 months (around 04/19/2020) for DM/HTN/depression f/u. Follow-up and Disposition History Recorded Encounter Status:Closed by MICHELE ACUNA on 10/20/19 cnco on 2019-09-28 CNCO Letter Text Normal 09-28-2019 [facility] ([id number]) cnco on 2019-09-21 CNCO Letter Text Normal 09-21-2019 [facility] ([id number]) trichomonas prep on 2019-09-19 Trichomonas Prep Sp. Request/Comment: - Swab Beatrice l 09-19-2019 [facility] Smear Result - Negative for Trichomonas vaginalis antigen This test was developed and its performance characteristics determined by [facility]'s [facility] [place] ([id number]) [place] ([facility]). It has not been cleared or approved by the FDA. [facility] is regulated under CLIA as qualified to perform high complexity testing. This test is used for clinical purposes. It should not be regarded as investigational or for research. Comment: Performed By: #### TRICHO ## ## [facility] Laboratorie s [address], [place] [address] progress on 2019-09 PROGRESS HNO ID: [id number] Normal 09-19-2019 [facility] Author: Eliana Ramirez [facility] ([id number]) Service: ? Author Type: ? Type: Progress Notes Filed: 09/19/2019 2:19 PM Note Text: Radiology Service Progress Note PATIENT NAME: Abe Stevenson DATE OF SERVICE: September 19, 2019 TIME: 2:18 PM PATIENT IDENTITY VERIFICATION COMPLETED USING TWO (2) METHOD S: Name and Date of confirmed by patient verbally. PATIENT GENDER DATA: Female. status: : No status: NO. PATIENT RELEVANT IMPLANT DATA REVIEWED: Not Applicable RADIOLOGY DEPARTMENT: Mammography PERIPHERAL IV DATA: Not applicable SIGNED BY: Eliana Ramirez Rt September 19, 2019 2:18 PM PROGRESS HNO ID: [id number] Normal 09-19-2019 [facility] Author: Leticia Espana ([id number]) Service: ? Author Type: Filter Tender Type: Progress Notes Filed: 09/19/2019 4:45 PM Note Text: Abe Stevenson is a 59 year old who presents for her an nual gynecologic exam with complaints, vaginal discharge. Started about one week ago, no odor or vaginal discomfort. Discharge yellow an d large amount. Postmenopausal: Yes since age 50 HRT use: No. Last Pap: 07/15/2013 normal HPV: 07/12/2013 negative History of abnormal pap: No Last mammogram: 2014 normal History of abnormal mammogram: No Colonoscopy Sexually active: Not sexually active. Last partner 6 years a go. Hot flashes: No Night sweats: No Vaginal dryness: No Mood swings: No Insomnia: No Exercise: 7 times a week for 20 minutes. Type: Walking Diet: ADA diet Seatbelt use: Yes for PCP OB History T0 L1 SAB0 TAB0 Ectopic0 Multiple0 Live Births0 PAST MEDICAL HISTORY Diagnosis Date - Arthritis, hip - Diabetes mellitus (HCC) 03/2012 - Family history of colon cancer Father 55 - Family history of premature coronary artery disease mother PR at 50 - History of colon polyps 03/07/2013 - HTN (hypertension) - Hyperlipemia - Obesity - Rosacea - Seborrheic dermatitis - Vitamin D deficiency PAST SURGICAL HISTORY Procedure Laterality Date - COLONOSCOPY AND POLYPECTOMY 03/07/13 repeat due 2018, tubular adenoma - PAST SURGICAL HISTORY OF cyst removed from uterus while - TOTAL HIP JOINT REPLACEMENT Left 02/2018 [facility] - TOTAL HIP JOINT REPLACEMENT Right 06/2018 [facility] FAMILY HISTORY Problem Relation Age of Onset - Coronary Artery Disease Mother 50 PR - Diabetes Mother 40 age 68 - Colon Cancer Father 55 age 58 - Diabetes Sister 60 - Arthritis Sister rheumatoid - Osteoporosis Sister SOCIAL HISTORY Social History Tobacco Use - Smoking status: Current Every Day Smoker Packs/day: 0.50 Years: 15.00 Pack years: 7.50 Types: Cigarettes - Smokeless tobacco: Never Used - Tobacco comment: 10 cigarettes per day Substance Use Topics - Alcohol use: No Comment: 2 drinks/month - Drug use: No REVIEW OF SYSTEMS Abdomen: No abdominal pain, nausea, vomiting, or constipatio n. No bloating, early satiety, indigestion, or increased flatulenc e. Diarrhea last night x 3 days, none today. Bloating below belly butto n puffy over last week, on antibiotics for bronchitis. Bladder: No dysuria, gross hematuria, urinary frequency, uri nary urgency. Urinary stress incontinence with coughing. Wearing depends i n last week due to this. Bladder infection in July and now improved . Was not previously wearing depends, only started this last week due to increased coughing. Breast: No breast lumps, nipple d/c, overlying skin changes, redness or skin retraction Allergies and current medication updated:Yes EXAM: Wt 236 lb (107.0kg) BP 142/84 Wt 236 lb (107 kg) BMI 40.51 kg/m? GENERAL: pleasant, female in no apparent distress HEENT: Normocephalic, atraumatic, mucus membranes moist and no lesions NECK: Supple, full range of motion, no adenopathy and thyroi d normal DERMATOLOGY: Normal, without lesions, non-icteric and non-hi rsute BREAST: soft, non-tender, symmetric, no dominant mass, beatrice l nipple-areolar complex, no lymphadenopathy and no nipple dis charge CHEST: Clear to auscultation Normal inspiratory effort Regul ar rate and rhythm No murmurs, clicks, rubs or gallops ABDOMEN: soft, non-tender and no masses PELVIC: external genitalia normal, normal Bartholin's glands , urethra, Winlock's glands, no vulvar lesions, no cervical lesions, good vaginal support, physiologic discharge present, normal appearing per ineal body and perianal region BIMANUAL: uterus normal size, shape and consistency, no adne xal masses and non-tender RECTOVAGINAL: deferred. NEURO: alert and oriented x3,exam grossly non-focal EXTREMITIES: normal ASSESSMENT/PLAN: 1. Encounter for gynecological examination (general) (routin e) without abnormal findings - ICD9: V72.31, ICD10: Z01.419 (primary di agnosis) - Completed pelvic and breast exam - Encouraged monthly BSE - Follow up for annual exam in one year. - PAP FLUID CERVICAL SCREENING 2. Pap smear for cervical cancer screening - ICD9: V76.2, IC D10: Z12.4 - Completed pelvic and breast exam - Encouraged monthly BSE - Follow up for annual exam in one year. - PAP FLUID CERVICAL SCREENING 3. Obesity, Class III, BMI 40-49.9 (morbid obesity) (HCC) - ICD9: 278.01, ICD10: E66.01 4. Vaginal discharge - ICD9: 623.5, ICD10: N89.8 - GC/CHLAMYDIA DNA DET - BACT/SHERRILL VAG GRAM STAIN - TRICHOMONAS PREP 1) Health maintenance: Pap done with HPV. Mammogram ordered Nutrition, exercise and routine health maintenance exams rev iewed. Calcium/Vitamin D supplementation information provided. Colon cancer screening: up to date with screening per pedro t TSH/lipids/glucose: followed by PCP BMD: followed by PCP 2) Follow up one year or sooner as needed Leticia Millan APRN.CNM [facility] screening on 04-10-04 [facility] SCREENING * * *Final Report* * * Normal [facility] DATE OF EXAM: Sep 19 2019 2:16PM [place] ([id number]) [id number] - [facility] SCREENING / PROCEDURE REASON: Screening for breast cancer * * * * Physician Interpretation * * * * RESULT: #[id number] - [facility] SCREENING BILATERAL DIGITAL SCREENING MAMMOGRAM WITH CAD: 09/19/2019 HISTORY: Screening For Breast Cancer /priors available for c omparison /patient reports NO breast symptoms. RESULT: TECHNIQUE: The study was acquired using full field digital t echnology and interpreted from soft copy. Current study was also evaluated with a Computer Aided Detec tion (CAD). Comparison is made to exams dated: 07/18/2014 mammogram and mammogram - [facility]. The tissue of bot h breasts is predominantly fatty. No significant masses, calcifications, or other findings are seen in either breast. There has been no significant interval change. IMPRESSION: NEGATIVE There is no mammographic evidence of malignancy. A 1 year ga reening mammogram is recommended. Dalia crowell/loulou:09/19/2019 15:42:46 Clinical Account Executive(s): RT Alek(R)(M), [facility] letter sent: Normal over 40 Mammogram BI-RADS: 1 Negative Multiple national specialty organizations have released ananda st cancer screening guidelines for women at average risk for developin g breast cancer - guidelines that are based on both evidence and opin ion, yet differ on when to start and how often to screen for breast c ancer. With representation from Breast Imaging, Internal Medicine, Women 's Health, Family Medicine, and Medical/Surgical Oncology, the [facility] has carefully reviewed the data and reached the following consen alok: 1) All women should engage in shared decision-making with eir providers to decide when to start and how often to screen; 2) All women should have the opportunity to start screening mammography at age 40; 3) For women ages 45-55, we recommend annual screening mammo grams; 4) For women ages 55 and over, we support both the transitio n from an annual to a biennial interval if this aligns more with patie nt's values and preferences, or continuation with annual screening; 5) All women should discuss with their providers when to sto p screening mammograms. Casting Operator: Loulou Transcribe Date/Time: Sep 19 2019 2:16P Dictated by: DALIA JONES MD This examination was interpreted and the report reviewed and electronically signed by: DALIA JONES MD on Sep 19 2019 3:42PM EST [id number] gc/chlamydia amplif on 2019-09-19 Chlamydia Amplif Negative for Chlamydia Normal 09-19-2019 [facility] trachomatis by Pasha chris ([id number]) amplification. Comment: Performed By: #### GCCT #### [facility] [address] [place] [address] GC Amplification Negative for Neisseria Normal 09-19-2019 [facility] gonorrhoeae by Pasha chris ([id number]) amplification. Comment: Performed By: #### GCCT #### [facility] [address] [place] [address] GC/Chlam Amp Source Cervix Normal 09-19-2019 [facility] ([id number]) Comment: Performed By: #### GCCT #### [facility] [address] [place] [id number] cytology on 2019-09 CYTOLOGY Specimen originated from [facility] Normal 09-19-2019 [place] Specimen #: [id number] Clinic Submitting Physician: LETICIA MILLAN CNM [place] SPECIMEN SUBMITTED ( [id number]) A: CERVICAL, SCREENING, FLUID FINAL DIAGNOSIS A. CERVICAL, SCREENING, FLUID Satisfactory for interpretation. Negative for intraepithelial lesion or malignancy. Reactive cellular changes associated with acute inflammation . This specimen has been analyzed by the ThinPrep Imaging Syst em, an automated imaging and review system, which assists the labor atory in evaluating cells on ThinPrep Pap tests. Following automated imaging, selected velazquez from every slide are reviewed by a cytotechn ologist. Ankita Vazquez M.D. (Electronic Signature) CLINICAL DATA ROUTINE EXAM, HPV Testing: Yes, Reflex HPV for ASCUS Date of Last Menstrual Period: Postmenopausal STAINS A: CERVICAL, SCREENING, FLUID THIN PREP KNITTER OPERATOR Date of Report: 09/27/2019 Date of Procedure: 09/19/2019 Date of Receipt: 09/21/2019 Submitted by: LETICIA MILLAN CNM Location: [facility] Diagnostic interpretation performed at [facility], [address] [place] [address], [place] [address]. CLIA Number: [id number] The Pap Smear is a screening test for cervical cancer. False negative results occur with all screening tests, emphasizing the need for rescreening at recommended intervals, and clinical correlati on. cnov on 2019-09-19 CNOV Office Visit (WOOB) Normal 09-19-2019 [facility] ABE STEVENSON ([id number]) 1960 [address] [facility] Date Time Provider Department ([id number]) 09/19/19 1:15 PM LETICIA MILLAN ([facility]) WOOB During your visit today, we recorded the following informati on about you: Blood pressure Weight 142/84 107 kg Leticia Millan APRN.CNM 09/19/2019 4:45 PM Signed Abe Aguilar Graham is a 59 year old who presents for her annual gynecologic exam with complaints, vagina l discharge. Started about one week ago, no odor or vaginal discomfort. Discharge yellow and large amount. Postmenopausal: Yes since age 50 HRT use: No. Last Pap: 07/15/2013 normal HPV: 07/12/2013 negative History of abnormal pap: No Last mammogram: 2014 normal History of abnormal mammogram: No Colonoscopy Sexually active: Not sexually active. Last partner 6 years a go. Hot flashes: No Night sweats: No Vaginal dryness: No Mood swings: No Insomnia: No Exercise: 7 times a week for 20 minutes. Type: Walking Diet: ADA diet Seatbelt use: Yes for PCP OB History T0 L1 SAB0 TAB0 Ectopic0 Multiple0 Live Births0 PAST MEDICAL HISTORY Diagnosis Date - Arthritis, hip - Diabetes mellitus (HCC) 03/2012 - Family history of colon cancer Father 55 - Family history of premature coronary artery disease mother PR at 50 - History of colon polyps 03/07/2013 - HTN (hypertension) - Hyperlipemia - Obesity - Rosacea - Seborrheic dermatitis - Vitamin D deficiency PAST SURGICAL HISTORY Procedure Laterality Date - COLONOSCOPY AND POLYPECTOMY 03/07/13 repeat due 2018, tubular adenoma - PAST SURGICAL HISTORY OF cyst removed from uterus while - TOTAL HIP JOINT REPLACEMENT Left 02/2018 [facility] - TOTAL HIP JOINT REPLACEMENT Right 06/2018 [facility] FAMILY HISTORY Problem Relation Age of Onset - Coronary Artery Disease Mother 50 PR - Diabetes Mother 40 age 68 - Colon Cancer Father 55 age 58 - Diabetes Sister 60 - Arthritis Sister rheumatoid - Osteoporosis Sister SOCIAL HISTORY Social History Tobacco Use - Smoking status: Current Every Day Smoker Packs/day: 0.50 Years: 15.00 Pack years: 7.50 Types: Cigarettes - Smokeless tobacco: Never Used - Tobacco comment: 10 cigarettes per day Substance Use Topics - Alcohol use: No Comment: 2 drinks/month - Drug use: No REVIEW OF SYSTEMS Abdomen: No abdominal pain, nausea, vomiting, or constipat ion. No bloating, early satiety, indigestion, or increased flatulence. D iarrhea last night x 3 days, none today. Bloating below belly button puffy over l ast week, on antibiotics for bronchitis. Bladder: No dysuria, gross hematuria, urinary frequency, uri nary urgency. Urinary stress incontinence with coughin g. Wearing depends in last week due to this. Bladder infection in July and now improved. Was n ot previously wearing depends, only started this last week due to increase d coughing. Breast: No breast lumps, nipple d/c, overlying skin ch anges, redness or skin retraction Allergies and current medication updated:Yes EXAM: Wt 236 lb (107.0kg) BP 142/84 Wt 236 lb (107 kg) BMI 40.51 kg/m? GENERAL: pleasant, female in no apparent distress HEENT: Normocephalic, atraumatic, mucus membranes moist and no lesions NECK: Supple, full range of motion, no adenopathy and thyroi d normal DERMATOLOGY: Normal, without lesions, non-icteric and non-hi rsute BREAST: soft, non-tender, symmetric, no dominant mass, normal nipple-areolar complex, no lymphadenopathy and no nipple discharge CHEST: Clear to auscultation Normal insp iratory effort Regular rate and rhythm No murmurs, clicks, rubs or gallops ABDOMEN: soft, non-tender and no masses PELVIC: external genitalia normal, beatrice l Bartholin's glands, urethra, Winlock's glands, no vulvar lesions, no cervical lesions, good vaginal support, physiologic discharge present, normal appearing perineal bod y and perianal region BIMANUAL: uterus normal size, shape and consistency, no adne xal masses and non-tender RECTOVAGINAL: deferred. NEURO: alert and oriented x3,exam grossly non-focal EXTREMITIES: normal ASSESSMENT/PLAN: 1. Encounter for gynecologic al examination (general) (routine) without abnormal findings - ICD9: V72.31, ICD10: Z01.419 (primary diagnosis) - Completed pelvic and breast exam - Encouraged monthly BSE - Follow up for annual exam in one year. - PAP FLUID CERVICAL SCREENING 2. Pap smear for cervical cancer screening - ICD9: V76.2, IC D10: Z12.4 - Completed pelvic and breast exam - Encouraged monthly BSE - Follow up for annual exam in one year. - PAP FLUID CERVICAL SCREENING 3. Obesity, Class III, BMI 40-49.9 (morbid obesity) ([facility]) - ICD9: 278.01, ICD10: E66.01 4. Vaginal discharge - ICD9: 623.5, ICD10: N89.8 - GC/CHLAMYDIA DNA DET - BACT/SHERRILL VAG GRAM STAIN - TRICHOMONAS PREP 1) Health maintenance: Pap done with HPV. Mammogram ordered Nutrition, exercise and routine health maintenance exams rev iewed. Calcium/Vitamin D supplementation information provided. Colon cancer screening: up to date with screening per pedro t TSH/lipids/glucose: followed by PCP BMD: followed by PCP 2) Follow up one year or sooner as needed Leticia Millan APRN.CNM Referring Provider: CARLY ROGERS [[id number]] Allergies As of Date: 09/19/2019 Noted Allergy Reaction ENALAPRIL 01/17/2013 3 - Cough Date Reviewed: 09/19/2019 Reviewed by: Claudia Castellanos Ma - Fully Assessed Reason for Visit: Yearly Exam [187] Primary Visit Diagnosis:Encounter for gynecological examinat ion (general) (routine) without abnormal findings [Z01.419] Other Visit Diagnoses:Pap smear for cervical cancer screenin g [Z12.4] Obesity, Class III, BMI 40-49.9 (morbid obesity) ([facility]) [E66.01] Vaginal discharge [N89.8] Order(s):PAP FLUID CERVICAL SCREENING [[id number]] Order #: [id number] GC/CHLAMYDIA DNA DET [SQGCCAMP] Order #: [id number] BACT/SHERRILL VAG GRAM STAIN [SQBVCNSM] Order #: [id number] TRICHOMONAS PREP [SQTRICHO] Order #: [id number] Prescriptions as of 09/19/2019 Sig: COMPOUNDED PRESCRIPTION ResMed AirCurve 10 S VPAP mac* LOSARTAN 50 MG TABLET Take 1 tablet by mouth twice * ATORVASTATIN 10 MG TABLET Take 1 tablet by mouth once d* AMLODIPINE 10 MG TABLET Take 1 tablet by mouth once d* AMITRIPTYLINE 10 MG TABLET Take 1 tablet by mouth daily * CYCLOBENZAPRINE 10 MG TABLET Take 1 tablet by mouth three * ACETAMINOPHEN 500 MG TABLET Take 1 tablet by mouth every * Problem List As Of Date 09/19/2019 Noted Resolved Seborrheic dermatitis [L21.9] INVALID FOR* Rosacea [L71.9] INVALID FOR* Diabetes mellitus, type 2 (HCC) [E11.9] INVALID FOR* HTN (hypertension) [I10] INVALID FOR* Hyperlipidemia [E78.5] INVALID FOR* Obesity [E66.9] INVALID FOR* Family history of colon cancer [Z80.0] More... Family history of premature coronary artery dis* More... History of colon polyps [Z86.010] INVALID FOR* Vitamin D deficiency [E55.9] Anal fissure [K60.2] INVALID FOR* Abdominal pain, unspecified site [R10.9] INVALID FOR* Arthritis, hip [M16.10] Sural neuropathy [G57.90] INVALID FOR* Right leg pain [M79.604] INVALID FOR* Skin lesion, superficial [L98.9] INVALID FOR* Primary osteoarthritis of right hip [M16.11] INVALID FOR* Abnormal brain MRI [R90.89] INVALID FOR* Peripheral polyneuropathy (HCC) [G62.9] INVALID FOR* Pacemaker [Z95.0] INVALID FOR* Sick sinus syndrome (HCC) [I49.5] INVALID FOR* CT (obstructive sleep apnea) [G47.33] INVALID FOR* Obesity, Class III, BMI >= 40 [E66.01] INVALID FOR* Disposition: Return in 1 year (on 09/19/2020) for Annual Exam . Follow-up and Disposition History Recorded Encounter Status:Closed by LETICIA MILLAN on 09/19/19 cnco on 2019-09-19 CNCO HNO ID: [id number] Normal 09-19-2019 [facility] Author: Mammography Coordinator [place] ([id number]) Service: ? Author Type: Physician Type: Letter Filed: 09/20/2019 11:34 PM Note Text: September 19, 2019 PID: [id number] Abe Stevenson [address] [place] [address] Dear Ms. Stevenson, We are pleased to inform you that the results of your recent breast imaging exam on 09/19/2019 are normal. Early detection of cancer is very important. We also underst and recommendations regarding breast cancer screening are contro versial. Please discuss with your primary care provider which strateg y is best for you and whether a mammogram is right for you. Your imaging studies and report will be kept on file at [facility] as part of your permanent medical record and are available f or your continuing care. Thank you for allowing us to help in meeting your health car e needs. Sincerely, Dr. Jones Interpreting Radiologist [facility] (Normal over 40) bact/cand vag grm st on 2019-09-19 Bact/Cand Vag Grm Sp. Request/Comment: - Swab Norm al 09-19-2019 [facility] [id number] Smear Result - BACTERIAL VAG INOSIS RESULT: Stain results indicate mixed morphotypes consistent with transition from normal vaginal marquise. No Polymorphonuclear Leukocytes Few Epithelial cells No Yeast observed Comment: Performed By: #### BVCNSM ## ## [facility] [address], [place] [address] progress on 2019-08 PROGRESS HNO ID: [id number] Normal 08-24-2019 [facility] Author: Carly Rogers [place] ([id number]) Service: ? Author Type: Physician Type: Progress Notes Filed: 08/24/2019 11:27 AM Note Text: Chief Complaint Patient presents with: Hospital Follow Up Imm/Inj: Flu Vaccine HPI Abe Stevenson is a 58 year old female who presents here tod ay for hospital follow up. Pt is not a TCM as she was scheduled outside of the 14 day t aidee frame. Was unable to reach pt to reschedule sooner. Had a pacemaker placed, is following with Cardio, Dr. Carrero. Was admitted to the [facility] on 08/06/19 till 08/09/19 for dizzines s and dehydration. She is feeling better, is out walking and exerc ising. She had a sleep study done. She still had some issues with dizzi ness when standing, walking and sitting, but that has improved since g etting the pacemaker placed. Is taking Norvasc 10 mg daily and Losartan 50 mg, which was added during her hospital stay, 1 tablet twice daily. Ad mits to having some slight chest pains, dizziness, and SOB occ. No longer taking Prozac for depression. Took on pill and it made her feel disoriented so she stopped taking it. Had sleep study done showing severe sleep apnea; recommended Bipap Past medical history, appointments, medications, allergies nancy parisi. Previous Medical History PAST MEDICAL HISTORY Diagnosis Date - Arthritis, hip - Diabetes mellitus (HCC) 03/2012 - Family history of colon cancer Father 55 - Family history of premature coronary artery disease mother PR at 50 - History of colon polyps 03/07/2013 - HTN (hypertension) - Hyperlipemia - Obesity - Rosacea - Seborrheic dermatitis - Vitamin D deficiency Previous Surgical History PAST SURGICAL HISTORY Procedure Laterality Date - COLONOSCOPY AND POLYPECTOMY 03/07/13 repeat due 2017, tubular adenoma - PAST SURGICAL HISTORY OF cyst removed from uterus while - TOTAL HIP JOINT REPLACEMENT Left 02/2018 [facility] - TOTAL HIP JOINT REPLACEMENT Right 06/2018 [facility] Family History FAMILY HISTORY Problem Relation Age of Onset - Colon Cancer Father 55 age 58 - Coronary Artery Disease Mother 50 PR - Diabetes Mother 40 age 68 - Diabetes Sister 60 - Arthritis Sister rheumatoid - Osteoporosis Sister Patient Allergies ALLERGIES Allergen Reactions - Enalapril Cough Current Medications Current Outpatient Medications on File Prior to Visit: cyclobenzaprine (FLEXERIL) 10 mg tablet Take 1 tablet by cristiano th three times daily as needed. amitriptyline (ELAVIL) 10 mg tablet Take 1 tablet by mouth d aily at bedtime. amLODIPine (NORVASC) 10 mg tablet Take 1 tablet by mouth onc e daily. atorvastatin (LIPITOR) 10 mg tablet Take 1 tablet by mouth o nce daily. acetaminophen (TYLENOL EXTRA STRENGTH) 500 mg tablet Take 1 tablet by mouth every 6 hours as needed for Pain. FLUoxetine (PROZAC) 20 mg capsule Take 1 capsule by mouth on ce daily. No current facility-administered medications on file prior t o visit. 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 Social Needs Financial resource strain: Not on file Food insecurity: Worry: Not on file Inability: Not on file Transportation needs: Medical: Not on file Non-medical: Not on file Tobacco Use Smoking status: Current Every Day Smoker Packs/day: 0.50 Years: 15.00 Pack years: 7.5 Types: Cigarettes Smokeless tobacco: Never Used Tobacco comment: 10 cigarettes per day Substance and Sexual Activity Alcohol use: No Comment: 2 drinks/month Drug use: No Sexual activity: Not Currently Partners: Male Lifestyle Physical activity: Days per week: Not on file Minutes per session: Not on file Stress: Not on file Relationships Social connections: Talks on phone: Not on file Gets together: Not on file Attends anglican service: Not on file Active member of club or organization: Not on file Attends meetings of clubs or organizations: Not on file Relationship status: Not on file Intimate partner violence: Fear of current or ex partner: Not on file Emotionally abused: Not on file Physically abused: Not on file Forced sexual activity: Not on file Other Topics Concerns: Not on file Social History Narrative 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 design. 1 son Moved from [place] Used to swim daily EXAM: BP 130/80 Pulse 74 Temp 36.5 ?C (97.7 ?F) (Tympanic) R claudia 18 Wt 105.2 kg (232 lb) BMI 39.82 kg/m? General Appearance: Well appearing, alert, in no acute distr ess, well-hydrated, well nourished. and Obese. Lungs: lungs clear to auscultation. No wheezing, rhonchi, ra les. Heart: RRR without murmur, gallop, or rubs. No ectopy. Health Maintenance List BP CONTROLLED (<130/80) due on 1978 DTAP,TDAP,TD(1 - Tdap) due on 1979 HEPATITIS C SCREENING due on 2004 MAMMOGRAM due on 08/22/2016 DILATED RETINAL EXAM due on 11/12/2017 COLORECTAL CANCER SCREENING,SEE MODIFIER due on 03/07/2018 PAP TESTING due on 07/11/2018 HPV TESTING due on 07/11/2018 INFLUENZA(1) due on 07/17/2019 HBA1C due on 10/19/2019 URINE ALBUMIN:CREATININE RATIO due on 04/19/2020 LDL CHOLESTEROL due on 04/19/2020 DIABETIC FOOT EXAM due on 04/19/2020 ANNUAL PCP TEAM CHRONIC DISEASE VISIT due on 07/20/2020 ONE PNEUMOVAX PRIOR TO AGE 65 Completed Data reviewed Hospital reports from [facility] 08/06/19-08/09/19 ASSESSMENT/PLAN: 1. Essential hypertension - ICD9: 401.9, ICD10: I10 (primary diagnosis) - good control - Continue current medication(s) - Recommended regular aerobic exercise. - Goal of BP <140/90 - AMLODIPINE 10 MG TABLET 2. Need for vaccination - ICD9: V05.9, ICD10: Z23 - INFLUENZA VACCINE QUADRIVALENT AGE 3 YRS PLUS + IM 3. Mixed hyperlipidemia - ICD9: 272.2, ICD10: E78.2 - good control - Continue current medication. - ATORVASTATIN 10 MG TABLET 4. Depression, major, recurrent, mild (HCC) - ICD9: 296.31, ICD10: F33.0 - AMITRIPTYLINE 10 MG TABLET 5. Muscle cramps - ICD9: 729.82, ICD10: R25.2 - CYCLOBENZAPRINE 10 MG TABLET 6. Sick sinus syndrome (HCC) - ICD9: 427.81, ICD10: I49.5 S/P pacemaker, follow with Cardiology, Dr Carrero 7. Pacemaker - ICD9: V45.01, ICD10: Z95.[address] (obstructive sleep apnea) - ICD9: 327.23, ICD10: G47. 33 Bipap order faxed Follow up in 2 months I agree with the Chief Complaint, ROS, and Past Histories in dependently gathered by the clinical operations support professionals and the remaining scr ibed note accurately describes my personal service to the patient Carly Rogers MD The documentation for this note was completed by Adriana chris Ma acting as scribe for Carly Rogers MD. August 24, 2019 9:43 AM . cnov on 2019-08-24 CNOV Office Visit (FAMPWS) Normal 08-24-20 19 [facility] ABE STEVENSON ([id number]) 1960 [facility] Date Time Provider Department ([id number]) 08/24/19 10:00 AM CARLY ROGERS During your visit today, we recorded the following informati on about you: Temperature Pulse Respiration Blood pressure 97.7 degrees 74/minute 18/minute 130/80 Weight 105.2 kg Carly Rogers MD 08/24/2019 11:27 AM Signed Chief Complaint Patient presents with: Hospital Follow Up Imm/Inj: Flu Vaccine HPI Abe Stevenson is a 58 year old female who presents here t [facility] for hospital follow up. Pt is not a TCM as she was scheduled outside of the 14 day [facility] frame. Was unable to reach pt to reschedule sooner. Had a pacemaker placed, is following with Cardio, Dr. Carrero. Was admitted to the [facility] on 08/06/19 till 08/09/19 for dizziness and dehydration. She is feeling better, is out walking and exercising. She had a sleep study done. She still had some issues with dizziness when standing , walking and sitting, but that has improved since getting the pacem chance placed. Is taking Norvasc 10 mg daily and Losartan 50 mg, which was added du ring her hospital stay, 1 tablet twice daily. Admits to having some slight tanner st pains, dizziness, and SOB occ. No longer taking Prozac for depression. Took on pill and it made her feel disoriented so she stopped taking it. Had sleep study done showing severe sleep apnea; recommended Bipap Past medical history, appointments, medications, allergies nancy parisi. Previous Medical History PAST MEDICAL HISTORY Diagnosis Date - Arthritis, hip - Diabetes mellitus (HCC) 03/2012 - Family history of colon cancer Father 55 - Family history of premature coronary artery disease mother PR at 50 - History of colon polyps 03/07/2013 - HTN (hypertension) - Hyperlipemia - Obesity - Rosacea - Seborrheic dermatitis - Vitamin D deficiency Previous Surgical History PAST SURGICAL HISTORY Procedure Laterality Date - COLONOSCOPY AND POLYPECTOMY 03/07/13 repeat due 2017, tubular adenoma - PAST SURGICAL HISTORY OF cyst removed from uterus while - TOTAL HIP JOINT REPLACEMENT Left 02/2018 [facility] - TOTAL HIP JOINT REPLACEMENT Right 06/2018 [facility] Family History FAMILY HISTORY Problem Relation Age of Onset - Colon Cancer Father 55 age 58 - Coronary Artery Disease Mother 50 PR - Diabetes Mother 40 age 68 - Diabetes Sister 60 - Arthritis Sister rheumatoid - Osteoporosis Sister Patient Allergies ALLERGIES Allergen Reactions - Enalapril Cough Current Medications Current Outpatient Medications on File Prior to Visit: cyclobenzaprine (FLEXERIL) 10 mg tablet Take 1 tablet by cristiano th three times daily as needed. amitriptyline (ELAVIL) 10 mg tablet Take 1 tablet by m outh daily at bedtime. amLODIPine (NORVASC) 10 mg tablet Take 1 tablet by mouth onc e daily. atorvastatin (LIPITOR) 10 mg tablet Take 1 tablet by mouth o nce daily. acetaminophen (TYLENOL EXTRA STRENGTH) 500 mg tablet Take 1 tablet by mouth every 6 hours as needed for Pain. FLUoxetine (PROZAC) 20 mg capsule Take 1 capsule by mouth on ce daily. No current facility-administered medications on file prior t o visit. 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 Social Needs Financial resource strain: Not on file Food insecurity: Worry: Not on file Inability: Not on file Transportation needs: Medical: Not on file Non-medical: Not on file Tobacco Use Smoking status: Current Every Day Smoker Packs/day: 0.50 Years: 15.00 Pack years: 7.5 Types: Cigarettes Smokeless tobacco: Never Used Tobacco comment: 10 cigarettes per day Substance and Sexual Activity Alcohol use: No Comment: 2 drinks/month Drug use: No Sexual activity: Not Currently Partners: Male Lifestyle Physical activity: Days per week: Not on file Minutes per session: Not on file Stress: Not on file Relationships Social connections: Talks on phone: Not on file Gets together: Not on file Attends anglican service: Not on file Active member of club or organization: Not on file Attends meetings of clubs or organizations: Not on file Relationship status: Not on file Intimate partner violence: Fear of current or ex partner: Not on file Emotionally abused: Not on file Physically abused: Not on file Forced sexual activity: Not on file Other Topics Concerns: Not on file Social History Narrative 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 design. 1 son Moved from [place] Used to swim daily EXAM: BP 130/80 Pulse 74 Temp 36.5 ?C (97.7 ?F) (Tympanic) R claudia 18 Wt 105.2 kg (232 lb) BMI 39.82 kg/m? General Appearance: Well yenni earing, alert, in no acute distress, well-hydrated, well nourished. and Obese. Lungs: lungs clear to auscultation. No wheezing, rhonchi, ra les. Heart: RRR without murmur, gallop, or rubs. No ectopy. Health Maintenance List BP CONTROLLED (<130/80) due on 1978 DTAP,TDAP,TD(1 - Tdap) due on 1979 HEPATITIS C SCREENING due on 2004 MAMMOGRAM due on 08/22/2016 DILATED RETINAL EXAM due on 11/12/2017 COLORECTAL CANCER SCREENING,SEE MODIFIER due on 03/07/2018 PAP TESTING due on 07/11/2018 HPV TESTING due on 07/11/2018 INFLUENZA(1) due on 07/17/2019 HBA1C due on 10/19/2019 URINE ALBUMIN:CREATININE RATIO due on 04/19/2020 LDL CHOLESTEROL due on 04/19/2020 DIABETIC FOOT EXAM due on 04/19/2020 ANNUAL PCP TEAM CHRONIC DISEASE VISIT due on 07/20/2020 ONE PNEUMOVAX PRIOR TO AGE 65 Completed Data reviewed Hospital reports from [facility] 08/06/19-08/09/19 ASSESSMENT/PLAN: 1. Essential hypertension - ICD9: 401.9, ICD10: I10 (primary diagnosis) - good control - Continue current medication(s) - Recommended regular aerobic exercise. - Goal of BP <140/90 - AMLODIPINE 10 MG TABLET 2. Need for vaccination - ICD9: V05.9, ICD10: Z23 - INFLUENZA VACCINE QUADRIVALENT AGE 3 YRS PLUS + IM 3. Mixed hyperlipidemia - ICD9: 272.2, ICD10: E78.2 - good control - Continue current medication. - ATORVASTATIN 10 MG TABLET 4. Depression, major, recurrent, mild (HCC) - ICD9: 296.31, ICD10: F33.0 - AMITRIPTYLINE 10 MG TABLET 5. Muscle cramps - ICD9: 729.82, ICD10: R25.2 - CYCLOBENZAPRINE 10 MG TABLET 6. Sick sinus syndrome (HCC) - ICD9: 427.81, ICD10: I49.5 S/P pacemaker, follow with Cardiology, Dr Carrero 7. Pacemaker - ICD9: V45.01, ICD10: Z95.[address] (obstructive sleep apnea) - ICD9: 327.23, ICD10: G47. 33 Bipap order faxed Follow up in 2 months I agree with the Chief Complaint, ROS, and Past Histories in dependently gathered by the clinical operations support professionals and the remaining scr ibed note accurately describes my personal service to the patient Carly Rogers MD The documentation for this note was completed by Adriana Haider Ma acting as scribe for Carly Rogers MD. August 24, 2019 9:43 AM. Referring Provider: SELF [[id number]] Allergies As of Date: 08/24/2019 Noted Allergy Reaction ENALAPRIL 01/17/2013 3 - Cough Date Reviewed: 08/24/2019 Reviewed by: Adriana Haider Ma - Fully Assessed Reason for Visit: Hospital Follow Up [177] Imm/Inj [58] Cmt: Flu Vaccine Reason For Visit History Recorded Primary Visit Diagnosis:Essential hypertension [I10] Other Visit Diagnoses:Need for vaccination [Z23] Mixed hyperlipidemia [E78.2] Depression, major, recurrent, mild (HCC) [F33.0] Muscle cramps [R25.2] Sick sinus syndrome (HCC) [I49.5] Pacemaker [Z95.0] CT (obstructive sleep apnea) [G47.33] Order(s):INFLUENZA VACCINE QUADRIVALENT AGE 3 YRS PLUS + IM [[id number]] Order #: [id number] losartan (COZAAR) 50 mg tabletTake 1 tablet by mouth twice daily.Disp: 60 tabletRfl: 5 atorvastatin (LIPITOR) 10 mg tabletTake 1 tablet by mouth on ce daily.Disp: 30 tabletRfl: 5 amLODIPine (NORVASC) 10 mg tabletTake 1 tablet by mouth once daily.Disp: 30 tabletRfl: 5 amitriptyline (ELAVIL) 10 mg tabletTake 1 tablet by mouth da brien at bedtime.Disp: 30 tabletRfl: 5 cyclobenzaprine (FLEXERIL) 10 mg tabletTake 1 tablet by mout h three times daily as needed.Disp: 30 tabletRfl: 5 Prescriptions as of 08/24/2019 Sig: ATORVASTATIN 10 MG TABLET Take 1 tablet by mouth once d* AMLODIPINE 10 MG TABLET Take 1 tablet by mouth once d* AMITRIPTYLINE 10 MG TABLET Take 1 tablet by mouth daily * CYCLOBENZAPRINE 10 MG TABLET Take 1 tablet by mouth three * ACETAMINOPHEN 500 MG TABLET Take 1 tablet by mouth every * LOSARTAN 50 MG TABLET Take 1 tablet by mouth twice * Problem List As Of Date 08/24/2019 Noted Resolved Seborrheic dermatitis [L21.9] INVALID FOR* Rosacea [L71.9] INVALID FOR* Diabetes mellitus, type 2 (HCC) [E11.9] INVALID FOR* HTN (hypertension) [I10] INVALID FOR* Hyperlipidemia [E78.5] INVALID FOR* Obesity [E66.9] INVALID FOR* Family history of colon cancer [Z80.0] More... Family history of premature coronary artery dis* More... History of colon polyps [Z86.010] INVALID FOR* Vitamin D deficiency [E55.9] Anal fissure [K60.2] INVALID FOR* Abdominal pain, unspecified site [R10.9] INVALID FOR* Arthritis, hip [M16.10] Sural neuropathy [G57.90] INVALID FOR* Right leg pain [M79.604] INVALID FOR* Skin lesion, superficial [L98.9] INVALID FOR* Primary osteoarthritis of right hip [M16.11] INVALID FOR* Abnormal brain MRI [R90.89] INVALID FOR* Peripheral polyneuropathy (HCC) [G62.9] INVALID FOR* Pacemaker [Z95.0] INVALID FOR* Sick sinus syndrome (HCC) [I49.5] INVALID FOR* CT (obstructive sleep apnea) [G47.33] INVALID FOR* Prescriptions ordered this encounter Disp Refills Start End LOSARTAN 50 MG TABLET 60 t* 5 08/24/2019 Route: ORAL Sig: Take 1 tablet by mouth twice daily. ATORVASTATIN 10 MG TABLET 30 t* 5 08/24/2019 Route: ORAL Sig: Take 1 tablet by mouth once daily. AMLODIPINE 10 MG TABLET 30 t* 5 08/24/2019 Route: ORAL Sig: Take 1 tablet by mouth once daily. AMITRIPTYLINE 10 MG TABLET 30 t* 5 08/24/2019 Route: ORAL Sig: Take 1 tablet by mouth daily at bedtime. CYCLOBENZAPRINE 10 MG TABLET 30 t* 5 08/24/2019 Route: ORAL Sig: Take 1 tablet by mouth three times daily as needed. Medications Discontinued During This Encounter FLUoxetine (PROZAC) 20 mg capsule 30 c* 5 07/20/2019 08/24/2019 Route: ORAL Sig: Take 1 capsule by mouth once daily. Disc: Reason for discontinue is not on file. atorvastatin (LIPITOR) 10 mg tablet 30 t* 5 07/20/2019 08/24/20 Route: ORAL Sig: Take 1 tablet by mouth once daily. Disc: Reason for discontinue is not on file. amLODIPine (NORVASC) 10 mg tablet 30 t* 5 07/20/2019 08/24/2019 Route: ORAL Sig: Take 1 tablet by mouth once daily. Disc: Reason for discontinue is not on file. amitriptyline (ELAVIL) 10 mg tablet 30 t* 5 07/20/2019 08/24/20 Route: ORAL Sig: Take 1 tablet by mouth daily at bedtime. Disc: Reason for discontinue is not on file. cyclobenzaprine (FLEXERIL) 10 mg tab* 30 t* 5 07/20/20192018 Route: ORAL Sig: Take 1 tablet by mouth three times daily as needed. Disc: Reason for discontinue is not on file. Disposition: Return if symptoms worsen or fail to improve. Follow-up and Disposition History Recorded Encounter Status:Closed by CARLY ROGERS MD on 08/24/19 Encounters Date Type Reason Provider Location 06-25-2020 - Documentation External Provider [facility] 06-25-2020 procedure 12-21-2016 - Emergency department Pain in right INC GEMS NO Facili ty:[facility] 12-21-2016 patient visit hip REFERRING DR [facility] 07-24-2020 - Letter encounter [facility] 07-24-2020 [place] 07-02-2020 - Patient encounter External Provider [facility] 07-02-2020 procedure 06-25-2020 Patient encounter External Provider [facility] 08-20-2020 - Refill Cramp Carly Manuel [facility] 08-20-2020 [place] Comment: Refill Request 07-30-2020 - 07-30-2020 Refill Cough Carly Manuel [facility] [place] Comment: Refill Request 07-02-2020 Results Only External Provider External-N [facility] Procedures Procedure Name Date Provider Location EXTERNAL [facility] 07-02-[facility][id number][facility] Mammography 09-19-2019 - 09-19-2019 [facility] ([id number]) Colonoscopy 03-07-2013 - 03-07-2013 [facility] ([id number]) Plan of Treatment Plan Description Date Location PAP TESTING PAP TESTING 09-19-2024 - [facility] 09-19-2024 ([id number]) ANNUAL PCP TEAM CHRONIC ANNUAL PCP TEAM CHRONIC 04-19-2021 - [facility] DISEASE VISIT DISEASE VISIT 04-19-2021 ([id number]) URINE ALBUMIN:CREATININE URINE ALBUMIN:CREATININE 04-16-2021 - [facility] RATIO RATIO 04-16-2021 ([id number]) LDL CHOLESTEROL LDL CHOLESTEROL 12-16-2020 - [facility] 12-16-2020 ([id number]) HBA1C HBA1C 10-16-2020 - [facility] 10-16-2020 ([id number]) MAMMOGRAM MAMMOGRAM 09-19-2020 - [facility] 09-19-2020 ([id number]) INFLUENZA (#1) INFLUENZA (#1) 2020 - [facility] 07-17-2020 ([id number]) DIABETIC FOOT EXAM DIABETIC FOOT EXAM 04-19-2020 - [facility] 04-19-2020 ([id number]) HPV TESTING HPV TESTING 07-11-2018 - [facility] 07-11-2018 ([id number]) COLONOSCOPY COLONOSCOPY 03-07-2018 - [facility] 03-07-2018 ([id number]) COLORECTAL CANCER COLORECTAL CANCER 03-07-2018 [facility] inic SCREENING,SEE MODIFIER SCREENING,SEE MODIFIER ([phone]) DILATED RETINAL EXAM DILATED RETINAL EXAM 11-12-2017 - [facility] 11-12-2017 ([id number]) SHINGRIX VACCINE (1 of SHINGRIX VACCINE (1 of 2010 - [facility] 2) 2) 2010 ([id number]) DTAP,TDAP,TD (1 - Tdap) DTAP,TDAP,TD (1 - Tdap) 1979 - [facility] 1979 ([id number]) BP CONTROLLED (<130/80) BP CONTROLLED (<130/80) 1978 - [facility] 1978 ([id number]) HEPATITIS C SCREENING HEPATITIS C SCREENING 1978 - [facility] 1978 ([id number]) HIV SCREENING HIV SCREENING 1978 - [facility] 1978 ([id number]) no information [facility] ([id number]) Immunizations Vaccine Notes Status Date Location Influenza Vaccine, influenza virus (completed) 08-03-2013 - [facility] Split-Non Spec vaccine, unspecified 08-03-2013 ([id number]) formulation Influenza Seasonal influenza, injectable, (completed) 08-24-2019 - [facility] Inj Quadrivalent Age quadrivalent, contains 08-24-2019 ([id number]) 3+ preservative Influenza Seasonal influenza, injectable, (completed) 10-11-2018 - [facility] Inj Quadrivalent Age quadrivalent, contains 10-11-2018 (46767) 3+ preservative Influenza Seasonal influenza, injectable, (completed) 10-25-2015 - [facility] Inj Quadrivalent Age quadrivalent, contains 10-25-2015 (87929) 3+ preservative Influenza Seasonal influenza, seasonal, (completed) 07-31-2014 [facility] Inj Age 3+ injectable 07-31-2014 ([id number]) Pneumococcal-13 Vac pneumococcal conjugate (completed) 09-06-2014 - [facility] Conjugate vaccine, 13 valent 09-06-2014 ([id number]) Pneumovax pneumococcal ([facility]) [facility], 03-12-2015 ([id number]) 23 valent Influenza Recombinant Seasonal, trivalent, (completed) 08-31-2016 - [facility] Seasonal Inj PresFree recombinant, injectable 08-31-20 16 (75969) influenza vaccine, preservative free Payers Payer Name Policy Number Location EDDIE LEGER O [id number] [facility] ([id number]) [employer] MEDICARE [id number] [facility] ([phone]) The following information is from the original human readable contentNo Payer Records Found Social History Type Social History Date Location Description Tobacco smoking status Current every day smoker 04-19-2020 - [facility] NHIS 04-19-2020 ([id number]) History of tobacco use Cigarette Smoker [facility] ([id number]) Cigarettes smoked 04-19-2020 - [facility] ic current (pack per day) 04-19-2020 ([id number]) - Reported Tobacco use and Never used 04-19-2020 - [facility] exposure 04-19-2020 ([id number]) Alcohol intake Current non-drinker of 04-19-2020 - [facility] alcohol (finding) 04-19-2020 (92134) Tobacco Comment 10 cigarettes per day 04-19-2019 - [facility] 04-19-2019 ([id number]) Alcohol Comment 2 drinks/month 05-25-2014 - [facility] 05-25-2014 (91097) Sex Assigned At Not on file [facility] ([id number]) The following information is from the original human readable contentNo Social History Records FoundNo Social History Records FoundNo Social History Records Found Medical Equipment Equipment Code (if Equipment Original Equipment Procedure Code ( if Dates provided) Text (if provided) Identifier (if provided) provided) Test blood sugar(s) 05-26-20 20 1 times daily. Dx: Type 2 DM - Controlled E11.9 Insulin: No Test blood sugar(s) 05-26-20 20 1 times daily. Dx: Type 2 DM - Controlled E11.9 Insulin: No Test blood sugar(s) 05-26-20 20 1 times daily. Dx: Type 2 DM - Controlled E11.9 Insulin: No Test blood sugar(s) 05-26-20 20 1 times daily. Dx: Type 2 DM - Controlled E11.9 Insulin: No Test blood sugar(s) 05-26-20 20 1 times daily. Dx: Type 2 DM - Controlled E11.9 Insulin: No Test blood sugar(s) 05-26-20 20 1 times daily. Dx: Type 2 DM - Controlled E11.9 Insulin: No Test blood sugar(s) 05-26-20 20 1 times daily. Dx: Type 2 DM - Controlled E11.9 Insulin: No Test blood sugar(s) 05-26-20 20 1 times daily. Dx: Type 2 DM - Controlled E11.9 Insulin: No Test blood sugar(s) 05-26-20 20 1 times daily. Dx: Type 2 DM - Controlled E11.9 Insulin: No Test blood sugar(s) 05-26-20 20 1 times daily. Dx: Type 2 DM - Controlled E11.9 Insulin: No Summary Purpose Family History No Family History Records FoundNo Family History Records Found Advance Directives No Advanced Directives Records FoundNo Advanced Directives Records Found History of Past Illness Problem Noted Date Resolved Date Peripheral polyneuropathy 07/09/2017 04/17/2020 Skin lesion, superficial 06/15/2015 04/17/2020 Right leg pain 06/07/2015 04/17/2020 Abdominal pain, unspecified site 05/12/2015 020 Anal fissure 07/31/2014 04/17/2020 History of colon polyps 03/07/2013 04/17/2020 Family history of colon cancer 0 Overview: Father 55 Family history of premature coronary artery disease 04/17/2020 Overview: mother [place] at 50 Arthritis, hip 04/17/2020 Problem Noted Date Resolved Date Peripheral polyneuropathy 07/09/2017 04/17/2020 Skin lesion, superficial 06/15/2015 04/17/2020 Right leg pain 06/07/2015 04/17/2020 Abdominal pain, unspecified site 05/12/2015 020 Anal fissure 07/31/2014 04/17/2020 History of colon polyps 03/07/2013 04/17/2020 Family history of colon cancer 0 Overview: Father 55 Family history of premature coronary artery disease 04/17/2020 Overview: mother [place] at 50 Arthritis, hip 04/17/2020 Problem Noted Date Resolved Date Peripheral polyneuropathy 07/09/2017 04/17/2020 Skin lesion, superficial 06/15/2015 04/17/2020 Right leg pain 06/07/2015 04/17/2020 Abdominal pain, unspecified site 05/12/2015 020 Anal fissure 07/31/2014 04/17/2020 History of colon polyps 03/07/2013 04/17/2020 Family history of colon cancer 0 Overview: Father 55 Family history of premature coronary artery disease 04/17/2020 Overview: mother [place] at 50 Arthritis, hip 04/17/2020 Assessments Diagnosis Cough Diagnosis Muscle cramps Cramp of limb Reason for Referral Status Reason Specialty Diagnoses / Procedures Referred By C ontact Referred To Contact Closed Diagnoses Muscle cramps Carly Rogers [address] [place], [place] [address] Phone: Additional Source Comments FOR RECORDS PERTAINING TO PATIENTS WHO ARE OR HAVE BEEN ENROLLED IN A CHEMICAL DEPENDENCY/SUBSTANCE ABUSE PROGRAM, SOME INFORMATION MAY BE OMITTED. This clinical summary was aggregated from multiple sources. Caution should be exercised in using it in the provision of clinical care. This summary normalizes information from multiple sources, and as a consequence, information in this document may materially changethe coding, format and clinical context of patient data. In addition, data may be omittedin some cases. CLINICAL DECISIONS SHOULD BE BASED ON THE PRIMARY CLINICAL RECORDS. [facility] provides no warranty or guarantee of the accuracy or completeness of information in this document. UNRECOGNIZED CONTENT PROVIDED BELOW FOR UNRECOGNIZED SECTION INFORMATION SOURCE DATE CREATED AUTHOR AUTHOR'S COREYDOREENO N 05/12/2018 [facility] DATE CREATED AUTHOR AUTHOR'S ORGANIZATIO N 08/20/2020 [facility] UNRECOGNIZED CONTENT PROVIDED BELOW FOR UNRECOGNIZED SECTION Source Comments In the event this information is protected by the Federal Confidentiality of Alcohol and Drug Abuse Patient Records regulations: The Federal rules restrict any use of the information to criminally investigate or prosecute any alcohol or drug abuse patient.[facility] the event this information is protected by the Federal Confidentiality of Alcohol and Drug Abuse Patient Records regulations: The Federal rules restrict any use of the information to criminally investigate or prosecute any alcohol or drug abuse patient.[facility] the event this information is protected by the Federal Confidentiality of Alcohol and Drug Abuse Patient Records regulations: The Federal rules restrict any use of the information to criminally investigate or prosecute any alcohol or drug abuse patient.[facility] the event this information is protected by the Federal Confidentiality of Alcohol and Drug Abuse Patient Records regulations: The Federal rules restrict any use of the information to criminally investigate or prosecute any alcohol or drug abuse patient.[facility] the event this information is protected by the Federal Confidentiality of Alcohol and Drug Abuse Patient Records regulations: The Federal rules restrict any use of the information to criminally investigate or prosecute any alcohol or drug abuse patient.[facility] UNRECOGNIZED CONTENT PROVIDED BELOW FOR UNRECOGNIZED SECTION Reason for Visit Reason Onset Date Comments Refill Request 07/30/2020 Reason Onset Date Comments Refill Request 08/20/2020 UNRECOGNIZED CONTENT PROVIDED BELOW FOR UNRECOGNIZED SECTION Miscellaneous Notes Telephone Encounter - Adriana Haider Ma - 07/30/2020 9:58 AM EDT The following approved medication requests have been transmitted electronically. Signed Prescriptions Disp Refills benzonatate (TESSALON PERLES) 100 mg capsule 30 capsule 2 Sig: Take 1 capsule by mouth three times daily as needed for Cough. ASHLEY: No Authorizing Provider: CARLY ROGERS Ma elephone Encounter - Carly Rogers - 07/30/2020 9:47 AM EDTOK to refill as ordered Carly Rogers MD documented in this encounterTelephone Encounter - Adriana Haider Ma - 08/20/2020 11:45 AM EDT The following approved medication requests have been transmitted electronically. Signed Prescriptions Disp Refills cyclobenzaprine (FLEXERIL) 10 mg tablet 30 tablet 5 Sig: Take 1 tablet by mouth three times daily as needed. ASHLEY: No Authorizing Provider: CARLY ROGERS Ma elephone Encounter - Carly Rogers - 08/20/2020 10:49 AM EDTOK to refill as ordered Carly Rogers MD elephone Encounter - Adriana Haider Ma - 08/20/2020 10:43 AM EDTLast office visit: 04/19/2020 F/u scheduled: no follow up Adriana Haider Ma documented in this encounter
--- OUTSIDE RECORDS SUMMARY | 2020-08-28 12:41 | XMS RPT_ITS | CCD ---
:1960 External Reference #:[id number] Author Organization [employer] Care Team Providers Name Role Phone TagMan Unavailable Unavailable NO REFERRING DR Mcdermott Unavailable DENISE SEGURA Unavailable Unavailable Carly Rogers Primary Care Provider Allergies Reported Allergen Reaction(s) Severity Date of Onset Location enalapril Translations: [ Cough 01-17-2013 - [facility] ENALAPRIL] System Reposito ry Medications Medication Name Sig Date Prescriber Location Acetaminophen acetaminophen (TYLENOL 01-29-2017 [facility] EXTRA STRENGTH) [address] (4419 5) tablet Indications: Chronic pain of left knee , Pain in right hip Take 1 tablet by mouth every 6 hours as needed for Pain. 120 tablet 2 01/29/2017 Active Comment: Take 1 tablet by mouth every 6 hours as needed for Pain. Amitriptyline amitriptyline (ELAVIL) 06-19-2020 Carly Manuel [facility] 10 mg tablet (94281) Indications: Depression, major, recurrent, mild (HCC) Take 1 tablet by mouth daily at bedtime. 30 tablet 5 06/19/2020 Active Comment: Take 1 tablet by mouth daily at bedtime. amLODIPine amLODIPine (NORVASC) 03-26-2020 Carly Manuel [facility] mg tablet Indications: (4419 5) Essential hypertension Take 1 tablet by mouth once daily. 30 tablet 03/26/2020 Active Comment: Take 1 tablet by mouth once daily. atorvastatin atorvastatin (LIPITOR) 05-21-2020 Carly Manuel [facility] 10 mg tablet (51456) Indications: Mixed hyperlipidemia Take 1 tablet by mouth once daily. 30 tablet 11 05/21/2020 Active Comment: Take 1 tablet by mouth once daily. benzonatate benzonatate (TESSALON 07-30-2020 Carly Manuel [facility] PERLMAMI) 100 mg capsule (4419 5) Indications: Cough Take 1 capsule by mouth three times daily as needed for Cough. 30 capsule 2 07/30/2020 Active benzonatate (TESSALON 03-23-2020 - Carly Manuel [facility]) 100 mg capsule 07-30-2020 (95885) Indications: Cough Take 1 capsule by mouth three times daily as needed for Cough. 30 capsule 2 03/23/2020 07/30/2020 Discontinued Comment: Take 1 capsule by mouth thre e times daily as needed for Cough. Cephalexin cephALEXin (KEFLEX) 500 mg 08-25-2019 [facility] Provider C [facility] (90475) capsule EVERY 6 HOURS 0 08/25/2019 Active Comment: EVERY 6 HOURS COMPOUNDED COMPOUNDED 09-16-2019 Carly Manuel [facility] PRESCRIPTION PRESCRIPTION ResMed (43941) AirCurve 10 S VPAP machine with heated humidity and heated tubing. Pressure set to 22/16 cm H2O. [employer]ro[employer] Agora. 0 09/16/2019 Active COMPOUNDED PRESCRIPTION ResMed 09-16-2019 Carly [facility] (80234) AirCurve 10 S VPAP machine with heated humidity and heated tubing. Pressure set to 22/16 cm H2O. [employer]ro[employer] Agora. 0 09/16/2019 Active COMPOUNDED PRESCRIPTION ResMed 09-16-2019 Carly [facility] (89576) AirCurve 10 S VPAP machine with heated humidity and heated tubing. Pressure set to 22/16 cm H2O. [employer]ro[employer] Agora. 0 09/16/2019 Active COMPOUNDED PRESCRIPTION ResMed 09-16-2019 Carly [facility] (28321) AirCurve 10 S VPAP machine with heated humidity and heated tubing. Pressure set to 22/16 cm H2O. [employer] Agora. 0 09/16/2019 Active COMPOUNDED PRESCRIPTION ResMed 09-16-2019 Carly [facility] (90210) AirCurve 10 S VPAP machine with heated humidity and heated tubing. Pressure set to 22/16 cm H2O. [employer] Agora. 0 09/16/2019 Active Comment: ResMed AirCurve 10 S VPAP ma elsa with heated humidity and heated tubing. Pressure set to 22/16 cm H2O . [employer]robit Agora. cyclobenzaprine cyclobenzaprine 08-24-2019 - Carly Manuel [place] (FLEXERIL) 10 mg 08-20-2020 [facility] (441 95) tablet Indications: Muscle cramps Take 1 tablet by mouth three times daily as needed. 30 tablet 5 08/20/2020 Active Comment: Take 1 tablet by mouth three times daily as needed. dulaglutide dulaglutide (TRULICITY) 04-19-2020 Carly Manuel [facility] 0.75 mg/0.5 mL pnij (48706) Indications: Type 2 diabetes mellitus without complication, without long-term current use of insulin (HCC) Inject 0.75 mg subcutaneously one time a week. Inject dose once per week. Discard Pen After 4 Pen 5 04/19/2020 Active Comment: Inject 0.75 mg subcutaneousl y one time a week. Inject dose once per week. Discard Pen After telmisartan telmisartan (MICARDIS) 05-23-2020 Carly Manuel [facility] 40 mg tablet Take 1 (79604) tablet by mouth once daily. 30 tablet 5 05/23/2020 Active Comment: Take 1 tablet by mouth once daily. Problems Active Problems Category Problem Name Status Date Location Cardiac dysrhythmias Sick sinus syndrome Active 08-24-2019 - [facility] (15389) Conduction disorders Cardiac pacemaker in Active 08-24-2019 - [facility] situ (29271) Diabetes mellitus Type 2 diabetes Active 03-29-2013 - [place] [facility] without complication mellitus without [facility] complications (90107) Disorders of lipid Hyperlipidemia, Active 03-29-2013 - [place] [facility] metabolism unspecified Health System (70173) Essential hypertension Essential (primary) Active 03-29-2013 - [place] [facility] hypertension [facility] (54249) Mood disorders Bipolar disorder, Active 12-21-2016 - [place] [facility] unspecified [facility] (43246) Nutritional deficiencies Vitamin D deficiency Active [facility] (42256) Osteoarthritis Unilateral primary Active 09-06-2015 - [place] [facility] osteoarthritis, right Health System hip (67703) Other connective tissue 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-2016 - [place] [facility] disease artificial hip joint Health System (58564) Other connective tissue Cramp Active [facility] disease (34763) Other inflammatory Rosacea Active 03-28-2013 - [facility] condition of skin (93831) Other lower respiratory Cough Active [facility] disease (03807) Other nervous system Other chronic pain Active 12-21-2016 - [facility] (36304) Other nervous system Sural neuropathy Active 06-02-2015 - [facility] disorders (85438) Other nutritional; Morbid obesity Active 09-19-2019 - [facility] endocrine; and metabolic (44 195) disorders Other nutritional; Obesity Active 03-29-2013 - [facility] endocrine; and metabolic (44 195) disorders Residual codes; Obstructive sleep apnea Active 08-24-2019 - C [facility] unclassified syndrome (78382) Schizophrenia and other Schizophrenia, Active 12-21-2016 - [place] [facility] [facility] psychotic disorders unspecified Health S [facility]stem (90468) Past or Other Problems Category Problem Name Status Date Location Other inflammatory Seborrheic Completed 03-28-2013 - [facility] condition of skin dermatitis (81326) Other non-traumatic Pain in right hip Completed 12-21-2016 - [place] [facility] joint disorders Health Syste m (31060) Other screening for Magnetic resonance Completed 07-09-2017 - [facility] suspected conditions imaging of brain (44 195) (not mental disorders abnormal or infectious disease) Results Result Name Value Range Unit Interpretation Flag Date Location obsolete on 2020-08 OBSOLETE Refill (FAMPWS) Normal 08-20-2020 [facility] ABE STEVENSON ([id number]) 1960 [facility] Time Provider Department (57809) 08/20/20 CARLY ROGERS During your visit today, [...] Normal 07-30-2020 [place] ABE Auguste ([id number]) 1960 [facility] Date Time Provider Department (39722) 07/30/20 CARLY ROGERS FAMPWS During your visit [...] [R05] Order(s):benzonatate (TESSALON PERLES) 100 mg capsuleT rafiq [...] 2020-07-24 [facility] Letter Text Normal 07-24-2020 [facility] (61042) obsolete on 2020-06 OBSOLETE Refill (FAMPWS) Normal 06-19-[address] [facility] ABE STEVENSON ([id number]) 1960 [facility] Date Time Provider Department (57925) 06/19/20 CARLY ROGERS During your visit today, [...] at bedtime. ASHLEY: No Authorizing Provider: CARLY ORGERS Ma Allergies As of Date: 06/19/2020 Noted [...] on 2020-06-15 CNPN Telephone (FAMPWS) Normal 06-15-[address] [place] [facility] ABE STEVENSON ([id number]) 1960 [place] [place] Date Time Provider Department (62356) 06/15/20 CARLY ROGERS During your visit today, we recorded the following informati on about you: Macie Lloyd MA 06/15/2020 8:42 AM Signed Received forms for pt from [facility], requesting verification of disability. Please review forms, complete, then fax back to [phone]. Macie Rogers MD 06/18/2020 5:11 PM Signed [...] (FAMPWS) Normal 06-11-2020 [facility] ABE STEVENSON ([id number]) 1960 [place] Date Time Provider Department (44706) 06/11/20 CARLY ROGERS During your visit today, we recorded the following informati on about you: Bea Santana RN 06/11/2020 2:44 PM Signed Archana from [facility] tayla led, verified pt by [...] Signed I agree and will follow MD dAriana Lance Ma 06/11/2020 4:12 PM Signed Archana [...] on 2020-05-23 CNPN Telephone (FAMPWS) Normal 05-23-2020 [place] [facility] ABE STEVENSON ([id number]) 1960 [facility] Date Time Provider Department (83747) 05/23/20 CARLY ROGERS During your visit today, we recorded the following informati on about you: Carley Whiting PACO 05/23/2020 2:50 PM Signed today 162/88 pulse 88 slight headache in the morning. Headache relieved with Tylen ol. Taking amlodipine every morning . Patient had office visit [facility] Dr Carrero yesterday, she said no medications [...] She will update pt and advise she package pick up medication. Macie Lloyd MA Allergies As of [...] Refill (FAMPWS) Normal 05-21-[address] [facility] GRAHAMABE FALK ([id number]) 1960 [facility] Date Time Provider Department (74876) 05/21/20 CARLY ROGERS During your visit today, [...] on 2020-05-09 CNPN Telephone (FAMWS) Normal 05-09-[address] [place] [facility] ABE STEVENSON ([id number]) 1960 [place] Date Time Provider Department (79916) 05/09/20 CARLY ROGERS During your visit today, we recorded the following informati on about you: Renate Denis RN 05/09/2020 2:11 PM Signed Nurse Kassandra calls from [facility]. Did woun d care on [...] review and advise. Please call Kassandra at [phone] with any new orders. DORINA Tracey MD [...] 2020-05-04 CNPN Telephone (FAMPWS) Normal 05-04-[address] [place] [facility] ABE STEVENSON ([id number]) 1960 [facility] Date Time Provider Department ([id number]) 05/04/20 CARLY ROGERS During your visit today, [...] will be checked again on Thursday at [facility]. Adriana Haider Ma Allergies As of Date: [...] 05/04/20 progress on 2020-04 PROGRESS HNO ID: [id number] Normal 04-19-2020 [facility] Author: Carly Rogers [place] ([id number]) Service: ? Author Type: Physician Type: Progress [...] setting and agrees. Pt currently residing at [facility]. Has been there since November. Hoping to [...] care of her supplies and [facility] takes care of the wound. Has been given rx's for Valium 5 mg and Percocet 5-325 mg - hasn't been taking. Past medical history, appointments, medications, allergies nancy parisi. Previous Medical History PAST MEDICAL HISTORY Diagnosis Date - Arthritis, hip - Diabetes mellitus (HCC) 03/2012 - Family history of colon cancer Father 55 - Family history of premature coronary artery disease mother MD at 50 - History of colon polyps [...] Onset - Coronary Artery Disease Mother 50 MD - Diabetes Mother 40 age 68 - [...] capsule EVERY 6 HOURS - COMPOUNDED PRESCRIPTION [employer] AirCurve 10 S VPAP machine with heated humidity and heated tubing. Pressure set to 22/16 cm H2O. [employer]. - atorvastatin (LIPITOR) 10 mg tablet Take [...] AGE 65 Completed INFLUENZA Completed Data reviewed [facility] Appointment on 04/16/2020 Component Date Value [...] Histories in dependently gathered by the clinical desktop support engineer and the remaining scr ibed note accurately describes my personal service to the patient. Carly Rogers MD The documentation for this note was completed by Macie cruz MA acting as scribe for Carly Rogers MD. April 19, 2020 9:37 AM. Macie shortov on 2020-04-19 CNOV Office Visit (FAMPWS) Normal 04-19-[address] [place] [address] [facility] ABE STEVENSON ([id number]) 1960 [facility] Date Time Provider Department ([id number]) 04/19/20 9:40 AM CARLY ROGERS During your [...] setting and agrees. Pt currently residing at [facility]. Has been there since November. Hoping to [...] Center takes care of her supplies and [facility] takes care of the wound. Has [...] history of premature coronary artery disease mother MD at 50 - History of colon polyps 03/07/2013 - HTN (hypertension) - Hyperlipemia - Obesity - Rosacea - Seborrheic dermatitis - Vitamin D deficiency Previous Surgical History PAST SURGICAL HISTORY Procedure Laterality Date - COLONOSCOPY AND POLYPECTOMY 03/07/13 repeat due 2018, tubular adenoma - PAST SURGICAL HISTORY OF cyst removed from uterus while - TOTAL HIP JOINT REPLACEMENT Left 02/2018 [facility] - TOTAL HIP JOINT REPLACEMENT Right 06/2018 [facility] Family History FAMILY HISTORY Problem Relation Age of Onset - Coronary Artery Disease Mother 50 MD - Diabetes Mother 40 age 68 - [...] capsule EVERY 6 HOURS - COMPOUNDED PRESCRIPTION [employer] AirCurve 10 S VPAP machine with heated humidity and heated tubing. Pressure set to 22/16 cm H 2O. [employer]ro[employer] Agora. - atorvastatin (LIPITOR) 10 mg tablet Take [...] AGE 65 Completed INFLUENZA Completed Data reviewed [facility] Appointment on 04/16/2020 Component Date Value [...] Histories in dependently gathered by the clinical desktop support engineer and the remaining scr ibed note accurately describes my personal service to the patient. Carly Rogers MD The documentation for this note was completed by Macie cruz MA acting as scribe for Carly Rogers MD. April 19, 2020 9:37 AM. Macie Lloyd MA Referring Provider: CARLY ROGERS [[id number]] Allergies As of Date: 04/19/2020 Noted Allergy [...] Pen AfterDisp: 4 PenRfl: 5 HGB A1C [CSKAV1V] Order #: [id number] FUTURE COMP METABOLIC PANEL [SQCMP] Order #: [id number] FUTURE LIPID PANEL BASIC [SQLIPB] Order #: [id number] FUTURE Prescriptions as of 04/19/2020 Sig: LANCETS [...] on 2020-04-17 CNPN Telephone (FAMPWS) Normal 04-17-[address] [place] [facility] ABE STEVENSON ([id number]) 1960 [facility] Date Time Provider Department ([id number]) 04/17/20 [facility] During your visit today, we recorded the following informati on about you: Bea Santana RN 04/17/2020 3:39 PM Signed Leticia from [facility] called, verified pt by name and birthdate. Leticia states she met with pt and pt was not acting right. Pt reportedly wore her sunglasses for entire visit and was very withdrawn. Leticia states [facility] staff told her that pt wears her [...] HbA1c (Bld) [Mass fraction] 171 mg/dL Normal [facility] (16894) Comment: Result Comment: eAG: (Estima jayna average glucose) is a calculated value from HgbA1c and is business office representative of the average blood glucose level in the last 2-3 month period. Performed By: #### HBA1C, CM P ####[address] [phone] HbA1c (Bld) [Mass fraction] 7.6 4.3-5.6 % High [facility] (59620) Comment: Result Comment: [place] bet[employer] Association guidelines indicate that patients with HgbA1c in the range 5.7-6.4% are at increased risk for development of diabetes, and intervention by lifestyle modification may be beneficial. HgbA1c greater o r equal to 6.5% is considered diagnostic of diabetes. Performed By: #### HBA1C, CM P ####[place] [address] [address], [place] [phone] comp metabolic panel on 2020-04-16 Albumin [Mass/Vol] 4.1 3.9-4.9 g/dL Normal 04-16-2020 [facility] (47088) Comment: Performed By: #### HBA1C, CM P ####[address] [phone] ALP [Catalytic activity/Vol] 120 34-123 U/L Normal 0 04-16-2020 [facility] (14758) Comment: Performed By: #### HBA1C, CM P ####[facility], [place] [phone] ALT [Catalytic activity/Vol] 32 7-38 U/L Normal 0 04-16-2020 [facility] (60250) Comment: Performed By: #### HBA1C, CM P ####[place] [address] [address], [place] [phone] Anion gap [Moles/Vol] 16 9-18 mmol/L Normal 04-16-20 20 [facility] (24602) Comment: Performed By: #### HBA1C, CM P ####[place] [address] [address], [place] [phone] AST [Catalytic activity/Vol] 35 13-35 U/L Normal 0 04-16-2020 [facility] (03263) Comment: Performed By: #### HBA1C, CM P ####[place] [address] [address], [place] [phone]- [phone] Bilirubin [Mass/Vol] 0.2 0.2-1.3 mg/dL Normal 0 [facility] (88485) Comment: Performed By: #### HBA1C, CM P ####[place] [address] [address], [place] [phone] Calcium [Mass/Vol] 10.6 8.5-10.2 mg/dL High 04-16-2020 [facility] (50762) Comment: Performed By: #### HBA1C, CM P ####[place] [address] [address], [place] [phone] Chloride [Moles/Vol] 105 97-105 mmol/L Normal 0 [facility] (74589) Comment: Performed By: #### HBA1C, CM P ####[place] [address] [address], [place] [phone] CO2 [Moles/Vol] 21 22-30 mmol/L Low 04-16-2020 [facility] (88868) Comment: Performed By: #### HBA1C, CM P ####[facility] [address], [place] [phone]- [phone] Creatinine [Mass/Vol] 0.79 0.58-0.96 mg/dL Normal 04-16-20 20 [facility] (62465) Comment: Performed By: #### HBA1C, CM P ####[facility] [address], [place] [phone]- [phone] eGFR- Amer. >60 Normal 04-16-2020 [facility] (71998) Comment: Performed By: #### HBA1C, CM P ####[facility] [place] [address] [phone] GFR/1.73 sq M predicted >60 mL/min/{1.73_m2} Normal 04-16-2020 [facility] among non-blacks [facility] (90739) (S/P/Bld) [Vol rate/Area] Comment: Result Comment: eGFR [...] GFR. Performed By: #### HBA1C, CM P ####[facility] [address] [place], [place] [phone]- [phone] Glucose [Mass/Vol] 138 74-99 mg/dL High 04-16-2020 [facility] (44133) Comment: Result Comment: The [place] Diabetes Association (ADA) provides guidance for cutoff [...] for diagnosis of diabetes. Reference: Standards of [facility] in Diabetes 2016, [place] Diabetes Association. Diabetes Care. 2016.39(Suppl 1). Performed By: #### HBA1C, CM P ####[place] [address] [address], [place] [phone]- [phone] Potassium [Moles/Vol] 4.4 3.7-5.1 mmol/L Normal 04-16-20 [facility] (20242) Comment: Performed By: #### HBA1C, CM P ####[place] [address] [address], [place] [phone] Protein [Mass/Vol] 7.9 6.3-8.0 g/dL Normal 04-16-2020 [facility] (11609) Comment: Performed By: #### HBA1C, CM P ####[place] [address] [address], [place] [phone]- [phone] Sodium [Moles/Vol] 142 136-144 mmol/L Normal 04-16-2020 [facility] (04666) Comment: Performed By: #### HBA1C, CM P ####[place] [address] [address], [place] [phone]- [phone] Urea nitrogen [Mass/Vol] 13 7-21 mg/dL Normal 04-16 [facility] (33222) Comment: Performed By: #### HBA1C, CM P ####[place] [address] [address], [place] [phone]- [phone] albumin/creat ratio on 2020-04-16 Albumin Urine Random 17.9 mg/L Normal 0 [facility] (99016) Comment: Performed By: #### UACR #### [place] [address] [place], [place] [phone] Albumin/Creat Ratio 12 <30 mg/g Normal 04-16-2020 [facility] (89706) Comment: Result Comment: Adult Male a nd [...] 3(1), 1-150. Performed By: #### UACR #### [facility] [place], [place] [phone] Creatinine,Urine,Ran 143.3 20-300 mg/dL Normal 0 [facility] (51397) Comment: Performed By: #### UACR #### [facility] [place], [place] [phone]- [phone] cnpn on 2020-04-10 CNPN Telephone (FAMWS) Normal 04-10-[address] [place] [facility] ABE STEVENSON ([id number]) 1960 [facility] Date Time Provider Department (75331) 04/10/20 [facility] During your visit today, we recorded the following informati on about you: Renate Velasco LPN 04/10/2020 11:56 AM Signed Dottie with [facility] calling with plan of care for patient. Please advise Dottie PH: [phone]. 1.. Nursing for 2 to 3 times [...] insulin (HCC) [E11.9] Order(s):HOME BLOOD GLUCOSE MONITOR [[id number]] Order #: [id number] Lancets lancetsTest blood sugar(s) 1 times daily. [...] 04/10/20 progress on 2020-03 PROGRESS HNO ID: [id number] Normal 04-06-2020 [facility] Author: Carly Rogers ([id number]) Service: ? Author Type: Physician Type: Progress Notes Filed: 04/06/2020 3:10 PM Note Text: Noted Carly Rogers MD PROGRESS HNO ID: [id number] Normal 04-06-2020 [facility] Author: Cathy Salazar MA ([id number]) Service: ? Author Type: Shipper/Receiver Type: Progress Notes Filed: 04/06/2020 3:10 PM Note Text: TRANSITION CARE MANAGEMENT (TCM) INITIAL CONTACT Shipper/Receiver Outreach Provider Action/FYI: Initial contact with patient post discharge, spoke to pedro lazaro Patient identified by name and . TRANSITION CARE MANAGEMENT INITIAL OUTREACH DOCUMENTATION: Date of Outreach: 04/06/2020 04/06/2020 Outreach Attempt 1: Contact Made - Date of Discharge 04/05/2020 04/05/2020 Some recent data might be hidden SUMMARY: -Pt discharged from [facility] on 04/05/20. -Admitted for: Abcess right [...] ? Yes Medical records from recent hospitalization: [facility] cnptoutreach on CNPTOUTREACH Patient Outreach (FAMPWS) Normal 0 04-06-[address] [place] [facility] ABE STEVENSON ([id number]) 1960 [facility] Time Provider Department ([id number]) 04/06/20 CARLY ROGERSPWS During your visit today, we recorded the following informati on about you: Cathy Salazar MA, MA 04/06/2020 3:10 PM Signed TRANSITION CARE MANAGEMENT (TCM) INITIAL CONTACT Shipper/Receiver Outreach Provider Action/FYI: Initial contact with patient post discharge, spoke to pedro lazaro Patient identified by name and . TRANSITION CARE MANAGEMENT INITIAL OUTREACH DOCUMENTATION: Date of Outreach: 04/06/2020 04/06/2020 Outreach Attempt 1: Contact Made - Date of Discharge 04/05/2020 04/05/2020 Some recent data might be hidden SUMMARY: -Pt discharged from [facility] on 04/05/20. -Admitted for: Abcess right [...] Status:Closed by CARLY ROGERS MD [facility]06[facility] (FAMPWS) Normal 04-06-[address] [place] [facility] ABE STEVENSON ([id number]) 1960 [place] Date Time Provider Department (77905) 04/06/20 [facility] During your visit today, we recorded the following informati on about you: Bea Santana RN 04/06/2020 10:34 AM Signed nurse Leticia from [facility] call ed, verified pt by [...] Ma - Fully Assessed Reason for Visit: snf care orders [Other] Prescriptions as of 04/06/2020 [...] on 2020-04-05 CNPN Telephone (FAMPWS) Normal 04-05-[address] [place] [facility] ABE STEVENSON ([id number]) 1960 [facility] Date Time Provider Department (14490) 04/05/20 [facility] During your visit today, we recorded the following informati on about you: Ruby Swenson Pss 04/05/2020 12:44 PM Signed Patient is calling to inform doctor that she has been admitt ed to [facility] earlier this week for a Diabetic abscess [...] see how she is doing with the [facility] also. MD Adriana Lance Ma 04/05/2020 4:54 [...] Refill (FAMPWS) Normal 03-26-[address] [facility] ABE STEVENSON ([id number]) 1960 [facility] Date Time Provider Department ([id number]) 03/26/20 CARLY ROGERS FAMENRIKE During your visit [...] 03/27/20 progress on 2020-03 PROGRESS HNO ID: [id number] Normal 03-23-2020 [facility] Author: Carly Rogers [place] ([id number]) Service: ? Author Type: Physician Type: Progress [...] bitten by a spider and went to [facility] ER last year in June 12, [...] cough she dharmesh tiffany to have. The chalreson Socorro do help. Pt is a smoker, half ppd. Doing well; [facility], looking for apartment ; stress level good. Past medical history, appointments, medications, allergies nancy parisi. Previous Medical History PAST MEDICAL HISTORY Diagnosis Date - Arthritis, hip - Diabetes mellitus (HCC) 03/2012 - Family history of colon cancer Father 55 - Family history of premature coronary artery disease mother MD at 50 - History of colon polyps 03/07/2013 - HTN (hypertension) - Hyperlipemia - Obesity - Rosacea - Seborrheic dermatitis - Vitamin D deficiency Previous Surgical History PAST SURGICAL HISTORY Procedure Laterality Date - COLONOSCOPY AND POLYPECTOMY 03/07/13 repeat due 2017, tubular adenoma - PAST SURGICAL HISTORY OF cyst removed from uterus while - TOTAL HIP JOINT REPLACEMENT Left 02/2018 [facility] - TOTAL HIP JOINT REPLACEMENT Right 06/2018 [facility] Family History FAMILY HISTORY Problem Relation Age of Onset - Coronary Artery Disease Mother 50 MD - Diabetes Mother 40 age 68 - Colon Cancer Father 55 age 58 - Diabetes Sister 60 - Arthritis Sister - Osteoporosis Sister Patient Allergies ALLERGIES Allergen Reactions - Enalapril Cough Current Medications Current Outpatient Medications on File Prior to Visit Medication Sig - cephALEXin (KEFLEX) 500 mg capsule EVERY 6 HOURS - COMPOUNDED PRESCRIPTION [employer] AirCurve 10 S VPAP machine with heated humidity and heated tubing.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 findings [Z01.419] Other Visit Diagnoses:Pap smear for cervical cancer screenin g [Z12.4] Obesity, Class III, BMI 40-49.9 (morbid obesity) ([facility]) [E66.01] Vaginal discharge [N89.8] Order(s):PAP FLUID CERVICAL SCREENING [[id number]] Order #: [id number] GC/CHLAMYDIA DNA DET [SQGCCAMP] Order #: [id number] BACT/SHERRILL VAG GRAM STAIN [SQBVCNSM] Order #: [id number] TRICHOMONAS PREP [SQTRICHO] Order #: [id number] Prescriptions as of 09/19/2019 Sig: COMPOUNDED PRESCRIPTION [...] 09/19/19 cnco on 2019-09-19 CNCO HNO ID: [id number] Normal 09-19-2019 [facility] Author: Mammography Coordinator [place] ([id number]) Service: ? Author Type: Physician Type: Letter Filed: 09/20/2019 11:34 PM Note Text: September 19, 2019 PID: [id number] Abe Stevenson [address] [place] [address] Dear Ms. Stevenson, We are pleased to [...] be kept on file at [facility] as part of your permanent medical record and are available f or your continuing care. Thank you for allowing us to help in meeting your health car e needs. Sincerely, Dr. Jones Interpreting Radiologist [facility] (Normal over 40) bact/cand vag grm st on 2019-09-19 Bact/Cand Vag Grm Sp. Request/Comment: - Swab Norm al 09-19-2019 [facility] ([id number]) Smear Result - BACTERIAL VAG INOSIS RESULT: Stain results indicate mixed morphotypes consistent with transition from normal vaginal marquise. No Polymorphonuclear Leukocytes Few Epithelial cells No Yeast observed Comment: Performed By: #### BVCNSM ## ## [facility] [address] [place], [place] [address] progress on 2019-08 PROGRESS HNO ID: [id number] Normal 08-24-2019 [facility] Author: Carly Rogers [place] ([id number]) Service: ? Author Type: Physician Type: Progress [...] Cardio, Dr. Carrero. Was admitted to the [facility] on 08/06/19 till 08/09/19 for dizzines [...] history of premature coronary artery disease mother MD at 50 - History of colon polyps [...] - TOTAL HIP JOINT REPLACEMENT Right 06/2018 [facility] Family History FAMILY HISTORY Problem Relation Age of Onset - Colon Cancer Father 55 age 58 - Coronary Artery Disease Mother 50 MD - Diabetes Mother 40 age 68 - [...] level: Not on file Occupational History Occupation: student [employer] Social Needs Financial resource strain: Not on [...] file Gets together: Not on file Attends scientology service: Not on file Active member of [...] 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 1 son Moved from [place] Used to swim daily EXAM: BP 130/80 [...] 65 Completed Data reviewed Hospital reports from [facility] 08/06/19-08/09/19 ASSESSMENT/PLAN: 1. Essential hypertension - [...] Histories in dependently gathered by the clinical desktop support engineer and the remaining scr ibed note accurately describes my personal service to the patient Carly Rogers MD The documentation for this note was completed by Adriana chris Ma acting as scribe for Carly Rogers MD. August 24, 2019 9:43 AM . cnov on 2019-08-24 CNOV Office Visit (FAMPWS) Normal 08-24-20 19 [place] [facility] ABE STEVENSON ([id number]) 1960 [facility] Date Time Provider Department ([id number]) 08/24/19 10:00 AM CARLY ROGERS During your visit today, we recorded the following informati on about you: Temperature Pulse Respiration Blood pressure 97.7 degrees 74/minute 18/minute 130/80 Weight 105.2 kg Carly Rogers MD 08/24/2019 11:27 AM Signed Chief Complaint Patient presents with: Hospital Follow Up Imm/Inj: Flu Vaccine HPI Abe Stevenson is a 58 year old female who presents [facility] for hospital follow up. Pt is not a TCM as she was scheduled outside of the 14 day [facility] frame. Was unable to reach pt to reschedule sooner. Had a pacemaker placed, is following with Cardio, Dr. Carrero. Was admitted to the [facility] on 08/06/19 till 08/09/19 for dizziness [...] history of premature coronary artery disease mother MD at 50 - History of colon polyps 03/07/2013 - HTN (hypertension) - Hyperlipemia - Obesity - Rosacea - Seborrheic dermatitis - Vitamin D deficiency Previous Surgical History PAST SURGICAL HISTORY Procedure Laterality Date - COLONOSCOPY AND POLYPECTOMY 03/07/13 repeat due 2017, tubular adenoma - PAST SURGICAL HISTORY OF cyst removed from uterus while - TOTAL HIP JOINT REPLACEMENT Left 02/2018 [facility] - TOTAL HIP JOINT REPLACEMENT Right 06/2018 [facility] Family History FAMILY HISTORY Problem Relation Age of Onset - Colon Cancer Father 55 age 58 - Coronary Artery Disease Mother 50 MD - Diabetes Mother 40 age 68 - [...] level: Not on file Occupational History Occupation: student [employer] Social Needs Financial resource strain: Not on [...] file Gets together: Not on file Attends scientology service: Not on file Active member of [...] 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 1 son Moved from [place] Used to swim daily EXAM: BP 130/80 [...] 65 Completed Data reviewed Hospital reports from [facility] 08/06/19-08/09/19 ASSESSMENT/PLAN: 1. Essential hypertension - [...] Histories in dependently gathered by the clinical desktop support engineer and the remaining scr ibed note accurately [...] QUADRIVALENT AGE 3 YRS PLUS + IM [[id number]] Order #: [id number] losartan (COZAAR) 50 mg tabletTake 1 tablet [...] Provider Location 06-25-2020 - Documentation External Provider [facility] 06-25-2020 procedure 12-21-2016 - Emergency department Pain in right INC GEMS NO Facili ty:[facility] 12-21-2016 patient visit hip REFERRING DR [facility] VAL WALKER [facility] 07-24-2020 - Letter encounter Carly Rogers [facility] 07-24-2020 [facility] 07-02-2020 - Patient encounter External Provider [facility] 07-02-2020 procedure 06-25-2020 Patient encounter External Provider [facility] procedure 08-20-2020 - Refill Cramp Carly Manuel [facility] icine 08-20-2020 [facility] Comment: Refill Request 07-30-2020 - 07-30-2020 Refill Cough Carly Manuel [facility] Comment: Refill Request 07-02-2020 Results Only External Provider [facility] Procedures Procedure Name Date Provider Location EXTERNAL [facility][id number][facility] Mamm[facility] 09-19-2019 - 09-19-2019 [facility] ([id number]) Colonoscopy 03-07-2013 - 03-07-2013 [facility] ([id number]) Plan of Treatment Plan Description Date Location PAP TESTING PAP TESTING 09-19-2024 - [facility] 09-19-2024 ([id number]) ANNUAL PCP TEAM CHRONIC ANNUAL PCP TEAM CHRONIC 04-19-2021 - [facility] DISEASE VISIT DISEASE VISIT 04-19-2021 ([id number]) URINE ALBUMIN:CREATININE URINE ALBUMIN:CREATININE 04-16-2021 - [facility] RATIO RATIO 04-16-2021 ([id number]) LDL CHOLESTEROL LDL CHOLESTEROL 12-16-2020 - [facility] 12-16-2020 ([id number]) HBA1C HBA1C 10-16-2020 - [facility] 10-16-2020 ([id number]) MAMMOGRAM MAMMOGRAM 09-19-2020 - [facility] 09-19-2020 ([id number]) INFLUENZA (#1) INFLUENZA (#1) 2020 - [facility] 07-17-2020 ([id number]) DIABETIC FOOT EXAM DIABETIC FOOT EXAM 04-19-2020 - [facility] 04-19-2020 ([id number]) HPV TESTING HPV TESTING 07-11-2018 - [facility] 07-11-2018 ([id number]) COLONOSCOPY COLONOSCOPY 03-07-2018 - [facility] 03-07-2018 ([id number]) COLORECTAL CANCER COLORECTAL CANCER 03-07-2018 [facility] inic SCREENING,SEE MODIFIER SCREENING,SEE MODIFIER (0 [id number]) DILATED RETINAL EXAM DILATED RETINAL EXAM 11-12-2017 - [facility] 11-12-2017 ([id number]) SHINGRIX VACCINE (1 of SHINGRIX VACCINE (1 of 2010 - [facility] 2) 2) 2010 (67577) DTAP,TDAP,TD (1 - Tdap) DTAP,TDAP,TD (1 - Tdap) 1979 - [facility] 1979 (18575) BP CONTROLLED (<130/80) BP CONTROLLED (<130/80) 1978 - [facility] 1978 (45159) HEPATITIS C SCREENING HEPATITIS C SCREENING 1978 - [facility] 1978 (66828) HIV SCREENING HIV SCREENING 1978 - [facility] 1978 (26036) no information [facility] (57719) Immunizations Vaccine Notes Status Date Location Influenza Vaccine, influenza virus (completed) 08-03-2013 - [facility] Split-Non Spec vaccine, unspecified 08-03-2013 (4419 5) formulation Influenza Seasonal influenza, injectable, (completed) 08-24-2019 - [facility] Inj Quadrivalent Age quadrivalent, contains 08-24-2019 (11964) 3+ preservative Influenza Seasonal influenza, injectable, (completed) 10-11-2018 - [facility] Inj Quadrivalent Age quadrivalent, contains 10-11-2018 (62608) 3+ preservative Influenza Seasonal influenza, injectable, (completed) 10-25-2015 - [facility] Inj Quadrivalent Age quadrivalent, contains 10-25-2015 (20646) 3+ preservative Influenza Seasonal influenza, seasonal, (completed) 07-31-2014 [facility] Inj Age 3+ injectable 07-31-2014 (09403) Pneumococcal-13 Vac pneumococcal conjugate (completed) 09-06-2014 - [facility] Conjugate vaccine, 13 valent 09-06-2014 (09182) Pneumovax pneumococcal (completed) [facility] polysaccharide [facility], 03-12-2015 (441 95) 23 valent Influenza Recombinant Seasonal, trivalent, (completed) 08-31-2016 - [facility] Seasonal Inj PresFree recombinant, injectable 08-31-20 16 (57225) influenza vaccine, preservative free Payers Payer Name Policy Number Location EDDIE LEGER O [id number] [facility] ([id number]) [employer] MEDICARE [id number] [facility] (44 195) The following information is from the original human readable contentNo Payer Records Found Social History Type Social History Date Location Description Tobacco smoking status Current every day smoker 04-19-2020 - [facility] NHIS 04-19-2020 (84954) History of tobacco use Cigarette Smoker [facility] ([id number]) Cigarettes smoked 04-19-2020 - [facility] ic current (pack per day) 04-19-2020 (23424) - Reported Tobacco use and Never used 04-19-2020 - [facility] exposure 04-19-2020 (94427) Alcohol intake Current non-drinker of 04-19-2020 - [facility] alcohol (finding) 04-19-2020 (16819) Tobacco Comment 10 cigarettes per day 04-19-2019 - [facility] 04-19-2019 (94363) Alcohol Comment 2 drinks/month 05-25-2014 - [facility] 05-25-2014 (09417) Sex Assigned At Not on file [facility] ([id number]) The following information is from the original [...] premature coronary artery disease 04/17/2020 Overview: mother MD at 50 Arthritis, hip 04/17/2020 Problem Noted Date Resolved Date Peripheral polyneuropathy 07/09/2017 04/17/2020 Skin lesion, superficial 06/15/2015 04/17/2020 Right leg pain 06/07/2015 04/17/2020 Abdominal pain, unspecified site 05/12/2015 020 Anal fissure 07/31/2014 04/17/2020 History of colon polyps 03/07/2013 04/17/2020 Family history of colon cancer 0 Overview: Father 55 Family history of premature coronary artery disease 04/17/2020 Overview: mother MD at 50 Arthritis, hip 04/17/2020 Problem Noted Date Resolved Date Peripheral polyneuropathy 07/09/2017 04/17/2020 Skin lesion, superficial 06/15/2015 04/17/2020 Right leg pain 06/07/2015 04/17/2020 Abdominal pain, unspecified site 05/12/2015 020 Anal fissure 07/31/2014 04/17/2020 History of colon polyps 03/07/2013 04/17/2020 Family history of colon cancer 0 Overview: Father 55 Family history of premature coronary artery disease 04/17/2020 Overview: mother MD at 50 Arthritis, hip 04/17/2020 Assessments Diagnosis Cough Diagnosis Muscle cramps Cramp of limb Reason for Referral Status Reason Specialty Diagnoses / Procedures Referred By C ontact Referred To Contact Closed Diagnoses Muscle cramps Carly Rogers [address] [place], [place] [address] Phone: Additional Source Comments FOR RECORDS PERTAINING [...] BE BASED ON THE PRIMARY CLINICAL RECORDS. [facility] provides no warranty or guarantee of the accuracy or completeness of information in this document. UNRECOGNIZED CONTENT PROVIDED BELOW FOR UNRECOGNIZED SECTION INFORMATION SOURCE DATE CREATED AUTHOR AUTHOR'S COREYDOREENO N 05/12/2018 [facility] DATE CREATED AUTHOR AUTHOR'S ORGANIZATIO N 08/20/2020 [facility] UNRECOGNIZED CONTENT PROVIDED BELOW FOR UNRECOGNIZED SECTION Source Comments In the event this information is protected by the Federal Confidentiality of Alcohol and Drug Abuse Patient Records regulations: The Federal rules restrict any use of the information to criminally investigate or prosecute any alcohol or drug abuse patient.[facility] the event this information is protected by the Federal Confidentiality of Alcohol and Drug Abuse Patient Records regulations: The Federal rules restrict any use of the information to criminally investigate or prosecute any alcohol or drug abuse patient.[facility] the event this information is protected by the Federal Confidentiality of Alcohol and Drug Abuse Patient Records regulations: The Federal rules restrict any use of the information to criminally investigate or prosecute any alcohol or drug abuse patient.[facility] the event this information is protected by the Federal Confidentiality of Alcohol and Drug Abuse Patient Records regulations: The Federal rules restrict any use of the information to criminally investigate or prosecute any alcohol or drug abuse patient.[facility] the event this information is protected by the Federal Confidentiality of Alcohol and Drug Abuse Patient Records regulations: The Federal rules restrict any use of the information to criminally investigate or prosecute any alcohol or drug abuse patient.[facility] UNRECOGNIZED CONTENT PROVIDED BELOW FOR UNRECOGNIZED [...]
--- OUTSIDE RECORDS SUMMARY | 2020-08-28 12:42 | XMS RPT_ITS | CCD ---
:1960 External Reference #:[id number] Author Organization [employer] Care Team Providers Name Role Phone [employer] Unavailable Unavailable NO REFERRING DR Mcdermott Unavailable DENISE SEGURA Unavailable Unavailable Carly Rogers Primary Care Provider Allergies Reported Allergen Reaction(s) Severity Date of Onset Location enalapril Translations: [ Cough 01-17-2013 - [facility] ENALAPRIL] System Reposito ry Medications Medication Name Sig Date Prescriber Location Acetaminophen acetaminophen (TYLENOL 01-29-2017 [facility] EXTRA STRENGTH) [address] (4419 5) tablet Indications: Chronic pain of left knee , Pain in right hip Take 1 tablet by mouth every 6 hours as needed for Pain. 120 tablet 2 01/29/2017 Active Comment: Take 1 tablet by mouth every 6 hours as needed for Pain. Amitriptyline amitriptyline (ELAVIL) 06-19-2020 Carly Manuel [facility] 10 mg tablet (05194) Indications: Depression, major, recurrent, mild (HCC) Take 1 tablet by mouth daily at bedtime. 30 tablet 5 06/19/2020 Active Comment: Take 1 tablet by mouth daily at bedtime. amLODIPine amLODIPine (NORVASC) 03-26-2020 Carly Manuel [facility] mg tablet Indications: (4419 5) Essential hypertension Take 1 tablet by mouth once daily. 30 tablet 03/26/2020 Active Comment: Take 1 tablet by mouth once daily. atorvastatin atorvastatin (LIPITOR) 05-21-2020 Carly Manuel [facility] 10 mg tablet (04953) Indications: Mixed hyperlipidemia Take 1 tablet by mouth once daily. 30 tablet 11 05/21/2020 Active Comment: Take 1 tablet by mouth once daily. benzonatate benzonatate (TESSALON 07-30-2020 Carly Manuel [facility] PERLMAMI) 100 mg capsule (4419 5) Indications: Cough Take 1 capsule by mouth three times daily as needed for Cough. 30 capsule 2 07/30/2020 Active benzonatate (TESSALON 03-23-2020 - [facility] 100 mg capsule 07-30-2020 (67881) Indications: Cough Take 1 capsule by mouth three times daily as needed for Cough. 30 capsule 2 03/23/2020 07/30/2020 Discontinued Comment: Take 1 capsule by mouth thre e times daily as needed for Cough. Cephalexin cephALEXin (KEFLEX) 500 mg 08-25-2019 [facility] Provider C [facility] (02287) capsule EVERY 6 HOURS 0 08/25/2019 Active Comment: EVERY 6 HOURS COMPOUNDED COMPOUNDED 09-16-2019 Carly Manuel [facility] PRESCRIPTION PRESCRIPTION [employer] (95932) AirCurve 10 S VPAP machine with heated humidity and heated tubing. Pressure set to 22/16 cm H2O. Delivered. 0 09/16/2019 Active COMPOUNDED PRESCRIPTION [employer] 09-16-2019 Carly [facility] (18141) AirCurve 10 S VPAP machine with heated humidity and heated tubing. Pressure set to 22/16 cm H2O. Delivered. 0 09/16/2019 Active COMPOUNDED PRESCRIPTION [employer] 09-16-2019 Carly [facility] (68095) AirCurve 10 S VPAP machine with heated humidity and heated tubing. Pressure set to 22/16 cm H2O. Delivered. 0 09/16/2019 Active COMPOUNDED PRESCRIPTION [employer] 09-16-2019 Carly [facility] (00343) AirCurve 10 S VPAP machine with heated humidity and heated tubing. Pressure set to 22/16 cm H2O. Delivered. 0 09/16/2019 Active COMPOUNDED PRESCRIPTION [employer] 09-16-2019 Carly [facility] (51619) AirCurve 10 S VPAP machine with heated humidity and heated tubing. Pressure set to 22/16 cm H2O. Delivered. 0 09/16/2019 Active Comment: [employer] AirCurve 10 S VPAP ma elsa with heated humidity and heated tubing. Pressure set to 22/16 cm H2O . Delivered. cyclobenzaprine cyclobenzaprine 08-24-2019 - Carly Manuel [place] (FLEXERIL) 10 mg 08-20-2020 [facility] (441 95) tablet Indications: Muscle cramps Take 1 tablet by mouth three times daily as needed. 30 tablet 5 08/20/2020 Active Comment: Take 1 tablet by mouth three times daily as needed. dulaglutide dulaglutide (TRULICITY) 04-19-2020 Carly Manuel [facility] 0.75 mg/0.5 mL pnij (41845) Indications: Type 2 diabetes mellitus without complication, without long-term current use of insulin (HCC) Inject 0.75 mg subcutaneously one time a week. Inject dose once per week. Discard Pen After 4 Pen 5 04/19/2020 Active Comment: Inject 0.75 mg subcutaneousl y one time a week. Inject dose once per week. Discard Pen After telmisartan telmisartan (MICARDIS) 05-23-2020 Carly Manuel [facility] 40 mg tablet Take 1 (52278) tablet by mouth once daily. 30 tablet 5 05/23/2020 Active Comment: Take 1 tablet by mouth once daily. Problems Active Problems Category Problem Name Status Date Location Cardiac dysrhythmias Sick sinus syndrome Active 08-24-2019 - [facility] (80760) Conduction disorders Cardiac pacemaker in Active 08-24-2019 - [facility] situ (89982) Diabetes mellitus Type 2 diabetes Active 03-29-2013 - [facility] without complication mellitus without [facility] complications (34232) Disorders of lipid Hyperlipidemia, Active 03-29-2013 - [facility] metabolism unspecified [facility] (56118) Essential hypertension Essential (primary) Active 03-29-2013 - [facility] hypertension [facility] (28180) Mood disorders Bipolar disorder, Active 12-21-2016 - [facility] (67606) Nutritional deficiencies Vitamin D deficiency Active [facility] (79785) Osteoarthritis Unilateral primary Active 09-06-2015 - [facility] osteoarthritis, right [facility] hip (16139) Other connective tissue 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-2016 - [facility] disease artificial hip joint [facility] (59945) Other connective tissue Cramp Active [facility] disease (04096) Other inflammatory Rosacea Active 03-28-2013 - [facility] condition of skin (29973) Other lower respiratory Cough Active [facility] disease (07768) Other nervous system Other chronic pain Active 12-21-2016 - [facility] (24798) Other nervous system Sural neuropathy Active 06-02-2015 - [facility] disorders (84892) Other nutritional; Morbid obesity Active 09-19-2019 - [facility] endocrine; and metabolic (44 195) disorders Other nutritional; Obesity Active 03-29-2013 - [facility] endocrine; and metabolic (44 195) disorders Residual codes; Obstructive sleep apnea Active 08-24-2019 - C [facility] unclassified syndrome (10612) Schizophrenia and other Schizophrenia, Active 12-21-2016 - [facility] psychotic disorders unspecified [facility] (94487) Past or Other Problems Category Problem Name Status Date Location Other inflammatory Seborrheic Completed 03-28-2013 - [facility] condition of skin dermatitis (60823) Other non-traumatic Pain in right hip Completed 12-21-2016 - [facility] joint disorders [facility] m (22548) Other screening for Magnetic resonance Completed 07-09-2017 - [facility] suspected conditions imaging of brain (44 195) (not mental disorders abnormal or infectious disease) Results Result Name Value Range Unit Interpretation Flag Date Location obsolete on 2020-08 OBSOLETE Refill (FAMPWS) Normal 08-20-2020 [facility] ABE STEVENSON ([id number]) 1960 [facility] Time Provider Department (80280) 08/20/20 CARLY ROGERS During your visit today, [...] Normal 07-30-2020 Jose Rafael lagunas ABE Auguste ([id number]) 1960 [facility] Date Time Provider Department (22688) 07/30/20 CARLY ROGERS FAMPWS During your visit [...] 2020-07-24 [facility]CO Letter Text Normal 07-24-2020 [facility] (05369) obsolete on 2020-06 OBSOLETE Refill (FAMPWS) Normal 06-19-[address] [facility] ABE STEVENSON ([id number]) 1960 [facility] Date Time Provider Department (92149) 06/19/20 CARLY ROGERS During your visit today, [...] on 2020-06-15 CNPN Telephone (FAMPWS) Normal 06-15-[address] [place] [facility] ABE STEVENSON ([id number]) 1960 Kadeem BOURNE [place] Date Time Provider Department (10915) 06/15/20 CARLY ROGERS During your visit today, we recorded the following informati on about you: Macie Lloyd MA 06/15/2020 8:42 AM Signed Received forms for pt from [facility], requesting verification of disability. Please review forms, complete, then fax back to [phone]. Macie Rogers MD 06/18/2020 5:11 PM Signed [...] (FAMPWS) Normal 06-11-2020 [facility] ABE STEVENSON ([id number]) 1960 F [place] Date Time Provider Department (23029) 06/11/20 CARLY ROGERS During your visit today, we recorded the following informati on about you: Bea Santana RN 06/11/2020 2:44 PM Signed Archana from [facility] tayla led, verified pt by [...] on 2020-05-23 CNPN Telephone (FAMPWS) Normal 05-23-2020 [place] [facility] ABE STEVENSON ([id number]) 1960 [facility] Date Time Provider Department (71140) 05/23/20 CARLY ROGERS During your visit today, we recorded the following informati on about you: Carley Whiting PACO 05/23/2020 2:50 PM Signed today 162/88 pulse 88 slight headache in the morning. Headache relieved with Tylen ol. Taking amlodipine every morning . [facility], she said no [...] She will update pt and advise she continuous pickling line pickler medication. Macie Lloyd MA Allergies As of [...] (FAMPWS) Normal 05-21-[address] [facility] GRAHAMABE FALK ([id number]) 1960 [facility] Date Time Provider Department (02048) 05/21/20 CARLY ROGERS During your visit today, [...] on 2020-05-09 CNPN Telephone (FAMWS) Normal 05-09-[address] [place] [facility] ABE STEVENSON ([id number]) 1960 TAYLA [place] Date Time Provider Department (27862) 05/09/20 CARLY ROGERS During your visit today, we recorded the following informati on about you: Renate Denis RN 05/09/2020 2:11 PM Signed Nurse Kassandra calls from [facility]. Did woun d care on [...] review and advise. Please call Kassandra at [phone] with any new orders. DORINA Tracey MD [...] CNPN Telephone (FAMPWS) Normal 05-04-[address] [facility] ABE STEVENSON ([id number]) 1960 [facility] Date Time Provider Department (70393) 05/04/20 CARLY ROGERS During your visit today, [...] checked again on Thursday at [facility]. Adriana Haider Ma Allergies As of [...] 05/04/20 progress on 2020-04 PROGRESS HNO ID: [id number] Normal 04-19-2020 [facility] Author: Carly Rogers [place] ([id number]) Service: ? Author Type: Physician Type: Progress [...] setting and agrees. Pt currently residing at [facility] for [facility] and abus ed women/fpc. Has been there since November. Hoping to [...] care of her supplies and Kindr rosaura [facility] takes care of the wound. Has been given rx's for Valium 5 mg and Percocet 5-325 mg - hasn't been taking. Past medical history, appointments, medications, allergies nancy parisi. Previous Medical History PAST MEDICAL HISTORY Diagnosis Date - Arthritis, hip - Diabetes mellitus (HCC) 03/2012 - Family history of colon cancer Father 55 - Family history of premature coronary artery disease mother [place] at 50 - History of colon polyps [...] Onset - Coronary Artery Disease Mother 50 [place] - Diabetes Mother 40 age 68 - [...] capsule EVERY 6 HOURS - COMPOUNDED PRESCRIPTION [employer] AirCurve 10 S VPAP machine with heated humidity and heated tubing. Pressure set to 22/16 cm H2O. [employer]. - atorvastatin (LIPITOR) 10 mg tablet Take [...] AGE 65 Completed INFLUENZA Completed Data reviewed [facility] Appointment on 04/16/2020 Component Date Value [...] Histories in dependently gathered by the clinical decision support manager and the remaining scr ibed note accurately describes my personal service to the patient. Carly Rgoers MD The documentation for this note was completed by Macie cruz MA acting as scribe for Carly Rogers MD. April 19, 2020 9:37 AM. Macie shortov on 2020-04-19 CNOV Office Visit (FAMPWS) Normal 04-19-[address] [place] [address] [facility] ABE STEVENSON ([id number]) 1960 [facility] Date Time Provider Department (51358) 04/19/20 9:40 AM CARLY ROGERS During your [...] setting and agrees. Pt currently residing at [facility] for [facility] abused women/fpc. Has been there since November. Hoping to [...] Center takes care of her supplies and [facility] takes care of the wound. Has [...] history of premature coronary artery disease mother [place] at 50 - History of colon polyps 03/07/2013 - HTN (hypertension) - Hyperlipemia - Obesity - Rosacea - Seborrheic dermatitis - Vitamin D deficiency Previous Surgical History PAST SURGICAL HISTORY Procedure Laterality Date - COLONOSCOPY AND POLYPECTOMY 03/07/13 repeat due 2018, tubular adenoma - PAST SURGICAL HISTORY OF cyst removed from uterus while - TOTAL HIP JOINT REPLACEMENT Left 02/2018 [facility] - TOTAL HIP JOINT REPLACEMENT Right 06/2018 [facility] Family History FAMILY HISTORY Problem Relation Age of Onset - Coronary Artery Disease Mother 50 [place] - Diabetes Mother 40 age 68 - [...] capsule EVERY 6 HOURS - COMPOUNDED PRESCRIPTION [employer] AirCurve 10 S VPAP machine with heated humidity and heated tubing. Pressure set to 22/16 cm H 2O. Delivered. - atorvastatin (LIPITOR) 10 mg tablet Take [...] AGE 65 Completed INFLUENZA Completed Data reviewed [facility] Appointment on 04/16/2020 Component Date Value [...] Histories in dependently gathered by the clinical decision support manager and the remaining scr ibed note accurately describes my personal service to the patient. Carly Rogers MD The documentation for this note was completed by Macie cruz MA acting as scribe for Carly Rogers MD. April 19, 2020 9:37 AM. Macie Lloyd MA Referring Provider: CARLY ROGERS [[id number]] Allergies As of Date: 04/19/2020 Noted Allergy [...] Pen AfterDisp: 4 PenRfl: 5 HGB A1C [UPWMF8L] Order #: [id number] FUTURE COMP METABOLIC PANEL [SQCMP] Order #: [id number] FUTURE LIPID PANEL BASIC [SQLIPB] Order #: [id number] FUTURE Prescriptions as of 04/19/2020 Sig: LANCETS [...] on 2020-04-17 CNPN Telephone (FAMPWS) Normal 04-17-[address] [place] [facility] BAE STEVENSON ([id number]) 1960 [facility] Date Time Provider Department (16412) 04/17/20 [facility] During your visit today, we recorded the following informati on about you: Bea Santana RN 04/17/2020 3:39 PM Signed Leticia from [facility] called, verified pt by name and birthdate. Leticia states she met with pt and pt was not acting right. Pt reportedly wore her sunglasses for entire visit and was very withdrawn. Leticia states [facility] staff told her that pt wears her [...] HbA1c (Bld) [Mass fraction] 171 mg/dL Normal [facility] (82116) Comment: Result Comment: eAG: (Estima jayna average glucose) is a calculated value from HgbA1c and is territory account representative of the average blood glucose level in the last 2-3 month period. Performed By: #### HBA1C, CM P ####[address] [phone] HbA1c (Bld) [Mass fraction] 7.6 4.3-5.6 % High [facility] (74889) Comment: Result Comment: [place] betes Association guidelines indicate that patients with HgbA1c in the range 5.7-6.4% are at increased risk for development of diabetes, and intervention by lifestyle modification may be beneficial. HgbA1c greater o r equal to 6.5% is considered diagnostic of diabetes. Performed By: #### HBA1C, CM P ####[place] [address] [place], [place] [phone] comp metabolic panel on 2020-04-16 Albumin [Mass/Vol] 4.1 3.9-4.9 g/dL Normal 04-16-2020 [facility] (45947) Comment: Performed By: #### HBA1C, CM P ####[address] [phone] ALP [Catalytic activity/Vol] 120 34-123 U/L Normal 0 04-16-2020 [facility] (25522) Comment: Performed By: #### HBA1C, CM P ####[facility], [place] [phone] ALT [Catalytic activity/Vol] 32 7-38 U/L Normal 0 04-16-2020 [facility] (09133) Comment: Performed By: #### HBA1C, CM P ####[place] [address] [address], [place] [phone]- [phone] Anion gap [Moles/Vol] 16 9-18 mmol/L Normal 04-16-[address] [facility] (16249) Comment: Performed By: #### HBA1C, CM P ####[place] [address] [address], [place] [phone]- [phone] AST [Catalytic activity/Vol] 35 13-35 U/L Normal 0 04-16-2020 [facility] (39973) Comment: Performed By: #### HBA1C, CM P ####[place] [address] [address], [place] [phone]- [phone] Bilirubin [Mass/Vol] 0.2 0.2-1.3 mg/dL Normal 0 [facility] (97650) Comment: Performed By: #### HBA1C, CM P ####[place] [address] [address], [place] [phone] Calcium [Mass/Vol] 10.6 8.5-10.2 mg/dL High 04-16-2020 [facility] (49381) Comment: Performed By: #### HBA1C, CM P ####[place] [address] [address], [place] [phone] Chloride [Moles/Vol] 105 97-105 mmol/L Normal 0 [facility] (50653) Comment: Performed By: #### HBA1C, CM P ####[place] [address] [address] [facility] center[facility], [place] [phone] CO2 [Moles/Vol] 21 22-30 mmol/L Low 04-16-2020 [facility] (88752) Comment: Performed By: #### HBA1C, CM P ####[facility] [address], [place] [phone]- [phone] Creatinine [Mass/Vol] 0.79 0.58-0.96 mg/dL Normal 04-16-[address] [facility] (38204) Comment: Performed By: #### HBA1C, CM P ####[facility] [address], [place] [phone] eGFR- Amer. >60 Normal 04-16-2020 [facility] (67620) Comment: Performed By: #### HBA1C, CM P ####[facility] [place] [address] [phone] GFR/1.73 sq M predicted >60 mL/min/{1.73_m2} Normal 04-16-2020 [facility] among non-blacks [facility] (08525) (S/P/Bld) [Vol rate/Area] Comment: Result Comment: eGFR [...] GFR. Performed By: #### HBA1C, CM P ####[facility] [address] [place], [place] [phone]- [phone] Glucose [Mass/Vol] 138 74-99 mg/dL High 04-16-2020 [facility] (88668) Comment: Result Comment: The [place] Diabetes Association (ADA) provides guidance for cutoff [...] for diagnosis of diabetes. Reference: Standards of [facility] in Diabetes 2016, [place] Diabetes Association. Diabetes Care. 2016.39(Suppl 1). Performed By: #### HBA1C, CM P ####[place] [address] [address], [place] [phone]- [phone] Potassium [Moles/Vol] 4.4 3.7-5.1 mmol/L Normal 04-16-20 [facility] (50757) Comment: Performed By: #### HBA1C, CM P ####[place] [address] [address], [place] [phone] Protein [Mass/Vol] 7.9 6.3-8.0 g/dL Normal 04-16-2020 [facility] (33415) Comment: Performed By: #### HBA1C, CM P ####[place] [address] [address], [place] [phone]- [phone] Sodium [Moles/Vol] 142 136-144 mmol/L Normal 04-16-2020 [facility] (25343) Comment: Performed By: #### HBA1C, CM P ####[place] [address] [address], [place] [phone]- [phone] Urea nitrogen [Mass/Vol] 13 7-21 mg/dL Normal 04-16 [facility] (93608) Comment: Performed By: #### HBA1C, CM P ####[place] [address] [address], [place] [phone] albumin/creat ratio on 2020-04-16 Albumin Urine Random 17.9 mg/L Normal 0 [facility] (60575) Comment: Performed By: #### UACR #### [place] [address] [place], [place] [phone] Albumin/Creat Ratio 12 <30 mg/g Normal 04-16-2020 [facility] (35396) Comment: Result Comment: Adult Male a nd [...] 3(1), 1-150. Performed By: #### UACR #### [facility] [place], [place] [phone] Creatinine,Urine,Ran 143.3 20-300 mg/dL Normal 0 [facility] (89501) Comment: Performed By: #### UACR #### [facility] [place], [place] [phone] cnpn on 2020-04-10 CNPN Telephone (FAMWS) Normal 04-10-[address] [place] [facility] ABE STEVENSON ([id number]) 1960 [facility] Date Time Provider Department (05334) 04/10/20 [facility] During your visit today, we recorded the following informati on about you: Renate Velasco LPN 04/10/2020 11:56 AM Signed Dottie with [facility] calling with plan of care for patient. Please advise Dottie PH: [phone]. 1.. Nursing for 2 to 3 times [...] insulin (HCC) [E11.9] Order(s):HOME BLOOD GLUCOSE MONITOR [[id number]] Order #: [id number] Lancets lancetsTest blood sugar(s) 1 times daily. [...] 04/10/20 progress on 2020-03 PROGRESS HNO ID: [id number] Normal 04-06-2020 [facility] Author: Carly Rogers ([id number]) Service: ? Author Type: Physician Type: Progress Notes Filed: 04/06/2020 3:10 PM Note Text: Noted Carly Rogers MD PROGRESS HNO ID: [id number] Normal 04-06-2020 [facility] Author: Cathy Salazar MA ([id number]) Service: ? Author Type: Medicine Aide Type: Progress Notes Filed: 04/06/2020 3:10 PM Note Text: TRANSITION CARE MANAGEMENT (TCM) INITIAL CONTACT Medicine Aide Outreach Provider Action/FYI: Initial contact with patient post discharge, spoke to pedro lazaro Patient identified by name and . TRANSITION CARE MANAGEMENT INITIAL OUTREACH DOCUMENTATION: Date of Outreach: 04/06/2020 04/06/2020 Outreach Attempt 1: Contact Made - Date of Discharge 04/05/2020 04/05/2020 Some recent data might be hidden SUMMARY: -Pt discharged from [facility] on 04/05/20. -Admitted for: Abcess right [...] ? Yes Medical records from recent hospitalization: [facility] cnptoutreach on CNPTOUTREACH Patient Outreach (FAMPWS) Normal 0 04-06-[address] [place] [facility] ABE STEVENSON ([id number]) 1960 [facility] Time Provider Department (32076) 04/06/20 CARLY ROGERSPWS During your visit today, we recorded the following informati on about you: Cathy Salazar MA, MA 04/06/2020 3:10 PM Signed TRANSITION CARE MANAGEMENT (TCM) INITIAL CONTACT Medicine Aide Outreach Provider Action/FYI: Initial contact with patient post discharge, spoke to pedro lazaro Patient identified by name and . TRANSITION CARE MANAGEMENT INITIAL OUTREACH DOCUMENTATION: Date of Outreach: 04/06/2020 04/06/2020 Outreach Attempt 1: Contact Made - Date of Discharge 04/05/2020 04/05/2020 Some recent data might be hidden SUMMARY: -Pt discharged from [facility] on 04/05/20. -Admitted for: Abcess right [...] Status:Closed by [facility]) Normal 04-06-[address] [place] [facility] ABE STEVENSON ([id number]) 1960 [place] Date Time Provider Department (30188) 04/06/20 [facility] During your visit today, we recorded the following informati on about you: Bea Santana RN 04/06/2020 10:34 AM Signed nurse Leticia from [facility] call ed, verified pt by [...] Ma - Fully Assessed Reason for Visit: shelter care orders [Other] Prescriptions as of 04/06/2020 [...] on 2020-04-05 CNPN Telephone (FAMPWS) Normal 04-05-[address] [place] [facility] ABE STEVENSON ([id number]) 1960 [facility] Date Time Provider Department (59088) 04/05/20 [facility] During your visit today, we recorded the following informati on about you: Ruby Swenson Pss 04/05/2020 12:44 PM Signed Patient is calling to inform doctor that she has been admitt ed to [facility] earlier this week for a Diabetic [...] see how she is doing with the [facility] also. MD Adriana Lance Ma 04/05/2020 [...] (FAMPWS) Normal 03-26-[address] [facility] ABE STEVENSON ([id number]) 1960 [facility] Date Time Provider Department ([id number]) 03/26/20 CARLY ROGERS FAMEN[facility]KE During your visit [...] 03/27/20 progress on 2020-03 PROGRESS HNO ID: [id number] Normal 03-23-2020 [facility] Author: Carly Rogers [place] ([id number]) Service: ? Author Type: Physician Type: Progress [...] bitten by a spider and went to [facility] ER last year in June 12, [...] half ppd. Doing well; [facility], looking for apartment ; stress level good. Past medical history, appointments, medications, allergies nancy parisi. Previous Medical History PAST MEDICAL HISTORY Diagnosis Date - Arthritis, hip - Diabetes mellitus (HCC) 03/2012 - Family history of colon cancer Father 55 - Family history of premature coronary artery disease mother [place] at 50 - History of colon polyps 03/07/2013 - HTN (hypertension) - Hyperlipemia - Obesity - Rosacea - Seborrheic dermatitis - Vitamin D deficiency Previous Surgical History PAST SURGICAL HISTORY Procedure Laterality Date - COLONOSCOPY AND POLYPECTOMY 03/07/13 repeat due 2017, tubular adenoma - PAST SURGICAL HISTORY OF cyst removed from uterus while - TOTAL HIP JOINT REPLACEMENT Left 02/2018 [facility] - TOTAL HIP JOINT REPLACEMENT Right 06/2018 [facility] Family History FAMILY HISTORY Problem Relation Age of Onset - Coronary Artery Disease Mother 50 [place] - Diabetes Mother 40 age 68 - Colon Cancer Father 55 age 58 - Diabetes Sister 60 - Arthritis Sister - Osteoporosis Sister Patient Allergies ALLERGIES Allergen Reactions - Enalapril Cough Current Medications Current Outpatient Medications on File Prior to Visit Medication Sig - cephALEXin (KEFLEX) 500 mg capsule EVERY 6 HOURS - COMPOUNDED PRESCRIPTION [employer]up[employer] Corporation[employer] AirCurve 10 S VPAP machine with heated humidity and heated tubing. Pressure set to 22/16 cm H2O. [employer]. - atorvastatin (LIPITOR) 10 mg tablet Take [...] Histories in dependently gathered by the clinical decision support manager and the remaining scr ibed note accurately describes my personal service to the patient. Carly Rogers MD The documentation for this note was completed by Adriana chris Ma acting as scribe for Carly Rogers MD. March 23, 2020 8:46 AM. Adriana Haider Ma obsolete on 2020-03 OBSOLETE Refill (FAMPWS) Normal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 2019-09-19 Bact/Cand Vag Grm Sp. Request/Comment: - Swab Norm al 09-19-2019 [facility] ([id number]) Smear Result - BACTERIAL VAG INOSIS RESULT: Stain results indicate mixed morphotypes consistent with transition from normal vaginal marquise. No Polymorphonuclear Leukocytes Few Epithelial cells No Yeast observed Comment: Performed By: #### BVCNSM ## ## [facility] [address] [place], [place] [address] progress on 2019-08 PROGRESS HNO ID: [id number] Normal 08-24-2019 [facility] Author: Carly Rogers [place] ([id number]) Service: ? Author Type: Physician Type: Progress [...] Cardio, Dr. Carrero. 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 2 year degree in [employer] design. 1 son Moved from [place] Used to swim daily EXAM: BP 130/80 [...] 65 Completed Data reviewed Hospital reports from [facility] 08/06/19-08/09/19 ASSESSMENT/PLAN: 1. Essential hypertension - [...] Histories in dependently gathered by the clinical decision support manager and the remaining scr ibed note accurately describes my personal service to the patient Carly Rogers MD The documentation for this note was completed by Adriana chris Ma acting as scribe for Carly Rogers MD. August 24, 2019 9:43 AM . cnov on 2019-08-24 CNOV Office Visit (FAMPWS) Normal 08-24-20 19 [place] [facility] ABE STEVENSON ([id number]) 1960 [facility] Date Time Provider Department ([id number]) 08/24/19 10:00 AM CARLY ROGERS During your visit today, we recorded the following informati on about you: Temperature Pulse Respiration Blood pressure 97.7 degrees 74/minute 18/minute 130/80 Weight 105.2 kg Carly Rogers MD 08/24/2019 11:27 AM Signed Chief Complaint Patient presents with: Hospital Follow Up Imm/Inj: Flu Vaccine HPI Abe Stevenson is a 58 year old female who presents here t [facility] for hospital follow up. Pt is not a TCM as she was scheduled outside of the 14 day [facility] frame. Was unable to reach pt to reschedule sooner. Had a pacemaker placed, is following with Cardio, Dr. Carrero. Was admitted to the [facility] on 08/06/19 till 08/09/19 for dizziness [...] history of premature coronary artery disease mother CO at 50 - History of colon polyps 03/07/2013 - HTN (hypertension) - Hyperlipemia - Obesity - Rosacea - Seborrheic dermatitis - Vitamin D deficiency Previous Surgical History PAST SURGICAL HISTORY Procedure Laterality Date - COLONOSCOPY AND POLYPECTOMY 03/07/13 repeat due 2017, tubular adenoma - PAST SURGICAL HISTORY OF cyst removed from uterus while - TOTAL HIP JOINT REPLACEMENT Left 02/2018 [facility] - TOTAL HIP JOINT REPLACEMENT Right 06/2018 [facility] Family History FAMILY HISTORY Problem Relation Age of Onset - Colon Cancer Father 55 age 58 - Coronary Artery Disease Mother 50 CO - Diabetes Mother 40 age 68 - [...] level: Not on file 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 2 year degree in [employer] design. 1 son Moved from [place] Used to swim daily EXAM: BP 130/80 [...] 65 Completed Data reviewed Hospital reports from [facility] 08/06/19-08/09/19 ASSESSMENT/PLAN: 1. Essential hypertension - [...] Histories in dependently gathered by the clinical decision support manager and the remaining scr ibed note accurately [...] QUADRIVALENT AGE 3 YRS PLUS + IM [[id number]] Order #: [id number] losartan (COZAAR) 50 mg tabletTake 1 tablet [...] Provider Location 06-25-2020 - Documentation External Provider [facility] 06-25-2020 procedure 12-21-2016 - Emergency department Pain in right INC GEMS NO Facili ty:[facility] 12-21-2016 patient visit hip REFERRING [facility] 07-24-2020 - Letter encounter Carly Rogers [facility] 07-24-2020 [facility] 07-02-2020 - Patient encounter External Provider [facility] 07-02-2020 procedure 06-25-2020 Patient encounter External Provider [facility] procedure 08-20-2020 - Refill Cramp Carly Manuel [facility] icine 08-20-2020 [facility] Comment: Refill Request 07-30-2020 - 07-30-2020 Refill Cough Carly Manuel [facility] Comment: Refill Request 07-02-2020 Results Only External Provider [facility] Procedures Procedure Name Date Provider Location EXTERNAL IMAGING 07-02-2020 External Provider [facility] car[facility] ([id number]) Mammography 09-19-2019 - 09-19-2019 [facility] ([id number]) Colonoscopy 03-07-2013 - 03-07-2013 [facility] ([id number]) Plan of Treatment Plan Description Date Location PAP TESTING PAP TESTING 09-19-2024 - [facility] 09-19-2024 ([id number]) ANNUAL PCP TEAM CHRONIC ANNUAL PCP TEAM CHRONIC 04-19-2021 - [facility] DISEASE VISIT DISEASE VISIT 04-19-2021 ([id number]) URINE ALBUMIN:CREATININE URINE ALBUMIN:CREATININE 04-16-2021 - [facility] RATIO RATIO 04-16-2021 ([id number]) LDL CHOLESTEROL LDL CHOLESTEROL 12-16-2020 - [facility] 12-16-2020 ([id number]) HBA1C HBA1C 10-16-2020 - [facility] 10-16-2020 ([id number]) MAMMOGRAM MAMMOGRAM 09-19-2020 - [facility] 09-19-2020 ([id number]) INFLUENZA (#1) INFLUENZA (#1) 2020 - [facility] 07-17-2020 ([id number]) DIABETIC FOOT EXAM DIABETIC FOOT EXAM 04-19-2020 - [facility] 04-19-2020 ([id number]) HPV TESTING HPV TESTING 07-11-2018 - [facility] 07-11-2018 ([id number]) COLONOSCOPY COLONOSCOPY 03-07-2018 - [facility] 03-07-2018 ([id number]) COLORECTAL CANCER COLORECTAL CANCER 03-07-2018 [facility] inic SCREENING,SEE MODIFIER SCREENING,SEE MODIFIER ([phone]) DILATED RETINAL EXAM DILATED RETINAL EXAM 11-12-2017 - [facility] 11-12-2017 ([id number]) SHINGRIX VACCINE (1 of SHINGRIX VACCINE (1 of 2010 - [facility] 2) 2) 2010 (74221) DTAP,TDAP,TD (1 - Tdap) DTAP,TDAP,TD (1 - Tdap) 1979 - [facility] 1979 (11243) BP CONTROLLED (<130/80) BP CONTROLLED (<130/80) 1978 - [facility] 1978 (66406) HEPATITIS C SCREENING HEPATITIS C SCREENING 1978 - [facility] 1978 (79103) HIV SCREENING HIV SCREENING 1978 - [facility] 1978 (19456) no information [facility] (45305) Immunizations Vaccine Notes Status Date Location Influenza Vaccine, influenza virus (completed) 08-03-2013 - [facility] Split-Non Spec vaccine, unspecified 08-03-2013 ([id number]) formulation Influenza Seasonal influenza, injectable, (completed) 08-24-2019 - [facility] Inj Quadrivalent Age quadrivalent, contains 08-24-2019 (23679) 3+ preservative Influenza Seasonal influenza, injectable, (completed) 10-11-2018 - [facility] Inj Quadrivalent Age quadrivalent, contains 10-11-2018 (46915) 3+ preservative Influenza Seasonal influenza, injectable, (completed) 10-25-2015 - [facility] Inj Quadrivalent Age quadrivalent, contains 10-25-2015 (01792) 3+ preservative Influenza Seasonal influenza, seasonal, (completed) 07-31-2014 [facility] Inj Age 3+ injectable 07-31-2014 (55681) Pneumococcal-13 Vac pneumococcal conjugate (completed) 09-06-2014 - [facility] Conjugate vaccine, 13 valent 09-06-2014 ([id number]) [facility] pneum[facility] ([facility], 03-12-2015 (441 95) 23 valent Influenza Recombinant Seasonal, trivalent, (completed) 08-31-2016 - [facility] Seasonal Inj PresFree recombinant, injectable 08-31-20 16 (98944) influenza vaccine, preservative free Payers Payer Name Policy Number Location EDDIE LEGER O [id number] [facility] ([id number]) [employer] MEDICARE [id number] [facility] (44 195) The following information is from the original human readable contentNo Payer Records Found Social History Type Social History Date Location Description Tobacco smoking status Current every day smoker 04-19-2020 - [facility] NHIS 04-19-2020 (18271) History of tobacco use Cigarette Smoker [facility] ([id number]) Cigarettes smoked 04-19-2020 - [facility] ic current (pack per day) 04-19-2020 (43553) - Reported Tobacco use and Never used 04-19-2020 - [facility] exposure 04-19-2020 (97253) Alcohol intake Current non-drinker of 04-19-2020 - [facility] alcohol (finding) 04-19-2020 (21586) Tobacco Comment 10 cigarettes per day 04-19-2019 - [facility] 04-19-2019 (37834) Alcohol Comment 2 drinks/month 05-25-2014 - [facility] 05-25-2014 (81100) Sex Assigned At Not on file [facility] ([id number]) The following information is from the original [...] premature coronary artery disease 04/17/2020 Overview: mother CO at 50 Arthritis, hip 04/17/2020 Problem Noted Date Resolved Date Peripheral polyneuropathy 07/09/2017 04/17/2020 Skin lesion, superficial 06/15/2015 04/17/2020 Right leg pain 06/07/2015 04/17/2020 Abdominal pain, unspecified site 05/12/2015 020 Anal fissure 07/31/2014 04/17/2020 History of colon polyps 03/07/2013 04/17/2020 Family history of colon cancer 0 Overview: Father 55 Family history of premature coronary artery disease 04/17/2020 Overview: mother CO at 50 Arthritis, hip 04/17/2020 Problem Noted Date Resolved Date Peripheral polyneuropathy 07/09/2017 04/17/2020 Skin lesion, superficial 06/15/2015 04/17/2020 Right leg pain 06/07/2015 04/17/2020 Abdominal pain, unspecified site 05/12/2015 020 Anal fissure 07/31/2014 04/17/2020 History of colon polyps 03/07/2013 04/17/2020 Family history of colon cancer 0 Overview: Father 55 Family history of premature coronary artery disease 04/17/2020 Overview: mother CO at 50 Arthritis, hip 04/17/2020 Assessments Diagnosis Cough Diagnosis Muscle cramps Cramp of limb Reason for Referral Status Reason Specialty Diagnoses / Procedures Referred By C ontact Referred To Contact Closed Diagnoses Muscle cramps Carly Rogers [address] [place], [place] [address] Phone: Additional Source Comments FOR RECORDS PERTAINING [...] BE BASED ON THE PRIMARY CLINICAL RECORDS. [facility] provides no warranty or guarantee of the accuracy or completeness of information in this document. UNRECOGNIZED CONTENT PROVIDED BELOW FOR UNRECOGNIZED SECTION INFORMATION SOURCE DATE CREATED AUTHOR AUTHOR'S COREYDOREENO N 05/12/2018 [facility] DATE CREATED AUTHOR AUTHOR'S ORGANIZATIO N 08/20/2020 [facility] UNRECOGNIZED CONTENT PROVIDED BELOW FOR UNRECOGNIZED SECTION Source Comments In the event this information is protected by the Federal Confidentiality of Alcohol and Drug Abuse Patient Records regulations: The Federal rules restrict any use of the information to criminally investigate or prosecute any alcohol or drug abuse patient.[facility] the event this information is protected by the Federal Confidentiality of Alcohol and Drug Abuse Patient Records regulations: The Federal rules restrict any use of the information to criminally investigate or prosecute any alcohol or drug abuse patient.[facility] the event this information is protected by the Federal Confidentiality of Alcohol and Drug Abuse Patient Records regulations: The Federal rules restrict any use of the information to criminally investigate or prosecute any alcohol or drug abuse patient.[facility] the event this information is protected by the Federal Confidentiality of Alcohol and Drug Abuse Patient Records regulations: The Federal rules restrict any use of the information to criminally investigate or prosecute any alcohol or drug abuse patient.[facility] the event this information is protected by the Federal Confidentiality of Alcohol and Drug Abuse Patient Records regulations: The Federal rules restrict any use of the information to criminally investigate or prosecute any alcohol or drug abuse patient.[facility] UNRECOGNIZED CONTENT PROVIDED BELOW FOR [...]
--- OUTSIDE RECORDS SUMMARY | 2020-08-28 12:45 | XMS RPT_ITS | CCD ---
:1960 External Reference #:[id number] Author Organization [employer] Care Team Providers Name Role Phone [employer] Unavailable Unavailable NO REFERRING DR Mcdermott Unavailable DENISE SEGURA Unavailable Unavailable Carly Rogers Primary Care Provider Allergies Reported Allergen Reaction(s) Severity Date of Onset Location enalapril Translations: [ Cough 01-17-2013 - [facility] ENALAPRIL] System Reposito ry Medications Medication Name Sig Date Prescriber Location Acetaminophen acetaminophen (TYLENOL 01-29-2017 [facility] EXTRA STRENGTH) [address] (4419 5) tablet Indications: Chronic pain of left knee , Pain in right hip Take 1 tablet by mouth every 6 hours as needed for Pain. 120 tablet 2 01/29/2017 Active Comment: Take 1 tablet by mouth every 6 hours as needed for Pain. Amitriptyline amitriptyline (ELAVIL) 06-19-2020 Carly Manuel [facility] 10 mg tablet (47943) Indications: Depression, major, recurrent, mild (HCC) Take 1 tablet by mouth daily at bedtime. 30 tablet 5 06/19/2020 Active Comment: Take 1 tablet by mouth daily at bedtime. amLODIPine amLODIPine (NORVASC) 03-26-2020 Carly Manuel [facility] mg tablet Indications: (4419 5) Essential hypertension Take 1 tablet by mouth once daily. 30 tablet 03/26/2020 Active Comment: Take 1 tablet by mouth once daily. atorvastatin atorvastatin (LIPITOR) 05-21-2020 Carly Manuel [facility] 10 mg tablet (46462) Indications: Mixed hyperlipidemia Take 1 tablet by mouth once daily. 30 tablet 11 05/21/2020 Active Comment: Take 1 tablet by mouth once daily. benzonatate benzonatate (TESSALON 07-30-2020 Carly Manuel [facility] PERLMAMI) 100 mg capsule (4419 5) Indications: Cough Take 1 capsule by mouth three times daily as needed for Cough. 30 capsule 2 07/30/2020 Active benzonatate (TESSALON 03-23-2020 - [facility] 100 mg capsule 07-30-2020 (63609) Indications: Cough Take 1 capsule by mouth three times daily as needed for Cough. 30 capsule 2 03/23/2020 07/30/2020 Discontinued Comment: Take 1 capsule by mouth thre e times daily as needed for Cough. Cephalexin cephALEXin (KEFLEX) 500 mg 08-25-2019 [facility] Provider C [facility] (45131) capsule EVERY 6 HOURS 0 08/25/2019 Active Comment: EVERY 6 HOURS COMPOUNDED COMPOUNDED 09-16-2019 Carly Manuel [facility] PRESCRIPTION PRESCRIPTION [employer] (37804) AirCurve 10 S VPAP machine with heated humidity and heated tubing. Pressure set to 22/16 cm H2O. TeraDiode. 0 09/16/2019 Active COMPOUNDED PRESCRIPTION Res[facility] 09-16-[address] [facility] (89088) AirCurve 10 S VPAP machine with heated humidity and heated tubing. Pressure set to 22/16 cm H2O. TeraDiode. 0 09/16/2019 Active COMPOUNDED PRESCRIPTION ResMed 09-16-[address] [facility] (45554) AirCurve 10 S VPAP machine with heated humidity and heated tubing. Pressure set to 22/16 cm H2O. TeraDiode. 0 09/16/2019 Active COMPOUNDED PRESCRIPTION ResMed 09-16-[address] [facility] (92396) AirCurve 10 S VPAP machine with heated humidity and heated tubing. Pressure set to 22/16 cm H2O. TeraDiode. 0 09/16/2019 Active COMPOUNDED PRESCRIPTION ResMed 09-16-[address] [facility] (62869) AirCurve 10 S VPAP machine with heated humidity and heated tubing. Pressure set to 22/16 cm H2O. TeraDiode. 0 09/16/2019 Active Comment: ResMed AirCurve 10 S VPAP ma elsa with heated humidity and heated tubing. Pressure set to 22/16 cm H2O . TeraDiode. cyclobenzaprine cyclobenzaprine 08-24-2019 - Carly Manuel [facility] (FLEXERIL) 10 mg 08-20-2020 [facility] (441 95) tablet Indications: Muscle cramps Take 1 tablet by mouth three times daily as needed. 30 tablet 5 08/20/2020 Active Comment: Take 1 tablet by mouth three times daily as needed. dulaglutide dulaglutide (TRULICITY) 04-19-2020 Carly Manuel [facility] 0.75 mg/0.5 mL pnij (36238) Indications: Type 2 diabetes mellitus without complication, without long-term current use of insulin (HCC) Inject 0.75 mg subcutaneously one time a week. Inject dose once per week. Discard Pen After 4 Pen 5 04/19/2020 Active Comment: Inject 0.75 mg subcutaneousl y one time a week. Inject dose once per week. Discard Pen After telmisartan telmisartan (MICARDIS) 05-23-2020 Carly Manuel [facility] 40 mg tablet Take 1 (83618) tablet by mouth once daily. 30 tablet 5 05/23/2020 Active Comment: Take 1 tablet by mouth once daily. Problems Active Problems Category Problem Name Status Date Location Cardiac dysrhythmias Sick sinus syndrome Active 08-24-2019 - [facility] (60735) Conduction disorders Cardiac pacemaker in Active 08-24-2019 - [facility] situ (44531) Diabetes mellitus Type 2 diabetes Active 03-29-2013 - [facility] without complication mellitus without [facility] complications (38046) Disorders of lipid Hyperlipidemia, Active 03-29-2013 - [facility] metabolism unspecified [facility] (11460) Essential hypertension Essential (primary) Active 03-29-2013 - [facility] hypertension [facility] (97929) Mood disorders Bipolar disorder, Active 12-21-2016 - [facility] (60572) Nutritional deficiencies Vitamin D deficiency Active [facility] (24215) Osteoarthritis Unilateral primary Active 09-06-2015 - [facility] osteoarthritis, right [facility] hip (38959) Other connective tissue 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-2016 - [facility] disease artificial hip joint Health [facility] (31087) Other connective tissue Cramp Active [facility] disease (74609) Other inflammatory Rosacea Active 03-28-2013 - [facility] condition of skin (01091) Other lower respiratory Cough Active [facility] disease (37756) Other nervous system Other chronic pain Active 12-21-2016 - [facility] (58110) Other nervous system Sural neuropathy Active 06-02-2015 - [facility] disorders (26378) Other nutritional; Morbid obesity Active 09-19-2019 - [facility] endocrine; and metabolic (44 195) disorders Other nutritional; Obesity Active 03-29-2013 - [facility] endocrine; and metabolic (44 195) disorders Residual codes; Obstructive sleep apnea Active 08-24-2019 - C [facility] unclassified syndrome (09204) Schizophrenia and other Schizophrenia, Active 12-21-2016 - [facility] psychotic disorders unspecified Health [facility] (00055) Past or Other Problems Category Problem Name Status Date Location Other inflammatory Seborrheic Completed 03-28-2013 - [facility] condition of skin dermatitis (88301) Other non-traumatic Pain in right hip Completed 12-21-2016 - [facility] joint disorders [facility] Syste m (77064) Other screening for Magnetic resonance Completed 07-09-2017 - [facility] suspected conditions imaging of brain (44 195) (not mental disorders abnormal or infectious disease) Results Result Name Value Range Unit Interpretation Flag Date Location obsolete on 2020-08 OBSOLETE Refill (FAMPWS) Normal 08-20-2020 [facility] ABE STEVENSON ([id number]) 1960 [facility] Time Provider Department (04806) 08/20/20 CARLY ROGERS During your visit today, [...] Normal 07-30-2020 Jose Rafael [facility] ABE Auguste ([id number]) 1960 [facility] Date Time Provider Department (59402) 07/30/20 CARLY ROGERS FAMPWS During your visit [...] 2020-07-24 [facility]CO Letter Text Normal 07-24-2020 [facility] (28555) obsolete on 2020-06 OBSOLETE Refill (FAMPWS) Normal 06-19-2020 Jose Rafael lagun[place] [facility] ABE STEVENSON ([id number]) 1960 [facility] Date Time Provider Department (02037) 06/19/20 CARLY ROGERS During your visit today, [...] on 2020-06-15 CNPN Telephone (FAMPWS) Normal 06-15-2020 [facility] ABE STEVENSON ([id number]) 1960 [place] [facility] Date Time Provider Department (47771) 06/15/20 CARLY ROGERS During your visit today, we recorded the following informati on about you: Macie Lloyd MA 06/15/2020 8:42 AM Signed Received forms for pt from [facility], requesting verification of disability. Please review forms, complete, then fax back to [phone]. Macie Rogers MD 06/18/2020 5:11 PM Signed [...] (FAMPWS) Normal 06-11-2020 [facility] ABE STEVENSON ([id number]) 1960 [place] Date Time Provider Department (87522) 06/11/20 CARLY ROGERS During your visit today, we recorded the following informati on about you: Bea Santana RN 06/11/2020 2:44 PM Signed Archana from [facility] tayla led, verified pt by [...] on 2020-05-23 CNPN Telephone (FAMPWS) Normal 05-23-2020 [facility] ABE STEVENSON ([id number]) 1960 [facility] Date Time Provider Department (56762) 05/23/20 CARLY ROGERS During your visit today, we recorded the following informati on about you: Carley Whiting PACO 05/23/2020 2:50 PM Signed today 162/88 pulse 88 slight headache in the morning. Headache relieved with Tylen ol. Taking amlodipine every morning . Patient had office visit [facility] Dr Carrero yesterday, she said no [...] She will update pt and advise she picker and packer medication. Macie Lloyd MA Allergies As of [...] Refill (FAMPWS) Normal 05-21-2020 Jose Rafael [place] [facility] GRAHAMABE FALK ([id number]) 1960 [facility] Date Time Provider Department (41460) 05/21/20 CARLY ROGERS During your visit today, [...] on 2020-05-09 CNPN Telephone (FAMWS) Normal 05-09-2020 [facility] ABE STEVENSON ([id number]) 1960 [place] [facility] Date Time Provider Department (61365) 05/09/20 CARLY ROGERS During your visit today, we recorded the following informati on about you: Renate Denis RN 05/09/2020 2:11 PM Signed Nurse Kassandra calls from [facility]. Did woun d care on [...] review and advise. Please call Kassandra at [phone] with any new orders. DORINA Tracey MD [...] 2020-05-04 CNPN Telephone (FAMPWS) Normal 05-04-2020 [place] [facility] ABE STEVENSON ([id number]) 1960 [facility] Date Time Provider Department (71506) 05/04/20 CARLY ROGERS During your visit today, [...] will be checked again on Thursday at [facility]. Adriana Haider Ma Allergies As of [...] 05/04/20 progress on 2020-04 PROGRESS HNO ID: [id number] Normal 04-19-2020 [facility] Author: Carly Rogers [facility] ([id number]) Service: ? Author Type: Physician Type: Progress [...] setting and agrees. Pt currently residing at [facility]. Has been there since November. Hoping to [...] care of her supplies and Kindr rosaura [facility] takes care of the wound. Has been given rx's for Valium 5 mg and Percocet 5-325 mg - hasn't been taking. Past medical history, appointments, medications, allergies nancy parisi. Previous Medical History PAST MEDICAL HISTORY Diagnosis Date - Arthritis, hip - Diabetes mellitus (HCC) 03/2012 - Family history of colon cancer Father 55 - Family history of premature coronary artery disease mother [place] at 50 - History of colon polyps [...] Onset - Coronary Artery Disease Mother 50 [place] - Diabetes Mother 40 age 68 - [...] capsule EVERY 6 HOURS - COMPOUNDED PRESCRIPTION [employer] AirCurve 10 S VPAP machine with heated humidity and heated tubing. Pressure set to 22/16 cm H2O. Personalis. - atorvastatin (LIPITOR) 10 mg tablet Take [...] 65 Completed INFLUENZA Completed Data reviewed [facility] Appointment on 04/16/2020 Component Date Value [...] dependently gathered by the clinical operations support manager and the remaining scr ibed note accurately describes my personal service to the patient. Carly Rogers MD The documentation for this note was completed by Macie cruz MA acting as scribe for Carly Rogers MD. April 19, 2020 9:37 AM. Macie shortov on 2020-04-19 CNOV Office Visit (FAMPWS) Normal 04-19-[address] [place] [address] [facility] ABE STEVENSON ([id number]) 1960 [facility] Date Time Provider Department (35926) 04/19/20 9:40 AM CARLY ROGERS During your [...] setting and agrees. Pt currently residing at [facility] [place] [facility]. Has been there since November. Hoping to [...] Center takes care of her supplies and [facility] takes care of the wound. Has [...] history of premature coronary artery disease mother [place] at 50 - History of colon polyps 03/07/2013 - HTN (hypertension) - Hyperlipemia - Obesity - Rosacea - Seborrheic dermatitis - Vitamin D deficiency Previous Surgical History PAST SURGICAL HISTORY Procedure Laterality Date - COLONOSCOPY AND POLYPECTOMY 03/07/13 repeat due 2018, tubular adenoma - PAST SURGICAL HISTORY OF cyst removed from uterus while - TOTAL HIP JOINT REPLACEMENT Left 02/2018 [facility] - TOTAL HIP JOINT REPLACEMENT Right 06/2018 [facility] Family History FAMILY HISTORY Problem Relation Age of Onset - Coronary Artery Disease Mother 50 [place] - Diabetes Mother 40 age 68 - [...] capsule EVERY 6 HOURS - COMPOUNDED PRESCRIPTION [employer] AirCurve 10 S VPAP machine with heated humidity and heated tubing. Pressure set to 22/16 cm H 2O. TeraDiode. - atorvastatin (LIPITOR) 10 mg tablet Take [...] 65 Completed INFLUENZA Completed Data reviewed [facility] Appointment on 04/16/2020 Component Date Value [...] dependently gathered by the clinical operations support manager and the remaining scr ibed note accurately describes my personal service to the patient. Carly Rogers MD The documentation for this note was completed by Macie cruz MA acting as scribe for Carly Rogers MD. April 19, 2020 9:37 AM. Macie Lloyd MA Referring Provider: CARLY ROGERS [[id number]] Allergies As of Date: 04/19/2020 Noted Allergy [...] Pen AfterDisp: 4 PenRfl: 5 HGB A1C [VOLWJ4O] Order #: [id number] FUTURE COMP METABOLIC PANEL [SQCMP] Order #: [id number] FUTURE LIPID PANEL BASIC [SQLIPB] Order #: [id number] FUTURE Prescriptions as of 04/19/2020 Sig: LANCETS [...] on 2020-04-17 CNPN Telephone (FAMPWS) Normal 04-17-2020 [facility] ABE STEVENSON ([id number]) 1960 [facility] Date Time Provider Department (65586) 04/17/20 [facility] During your visit today, we recorded the following informati on about you: Bea Santana RN 04/17/2020 3:39 PM Signed Leticia from [facility] called, verified pt by name and birthdate. Leticia states she met with pt and pt was not acting right. Pt reportedly wore her sunglasses for entire visit and was very withdrawn. Leticia states [facility] told her that pt wears her [...] HbA1c (Bld) [Mass fraction] 171 mg/dL Normal [facility] (43596) Comment: Result Comment: eAG: (Estima jayna average glucose) is a calculated value from HgbA1c and is employee representative of the average blood glucose level in the last 2-3 month period. Performed By: #### HBA1C, CM P ####[address] [phone] HbA1c (Bld) [Mass fraction] 7.6 4.3-5.6 % High [facility] (24036) Comment: Result Comment: [place] Carmel betes Association guidelines indicate that patients with HgbA1c in the range 5.7-6.4% are at increased risk for development of diabetes, and intervention by lifestyle modification may be beneficial. HgbA1c greater o r equal to 6.5% is considered diagnostic of diabetes. Performed By: #### HBA1C, CM P ####[place] [address] [place], [place] [phone]- [phone] comp metabolic panel on 2020-04-16 Albumin [Mass/Vol] 4.1 3.9-4.9 g/dL Normal 04-16-2020 [facility] (77955) Comment: Performed By: #### HBA1C, CM P ####[address] [phone] ALP [Catalytic activity/Vol] 120 34-123 U/L Normal 0 04-16-2020 [facility] (23985) Comment: Performed By: #### HBA1C, CM P ####[facility], [place] [phone] ALT [Catalytic activity/Vol] 32 7-38 U/L Normal 0 04-16-2020 [facility] (59561) Comment: Performed By: #### HBA1C, CM P ####[place] [address] [address], [place] [phone]- [phone] Anion gap [Moles/Vol] 16 9-18 mmol/L Normal 04-16-20 20 [facility] (73153) Comment: Performed By: #### HBA1C, CM P ####[place] [address] [address], [place] [phone]- [phone] AST [Catalytic activity/Vol] 35 13-35 U/L Normal 0 04-16-2020 [facility] (85857) Comment: Performed By: #### HBA1C, CM P ####[place] [address] [address], [place] [phone]- [phone] Bilirubin [Mass/Vol] 0.2 0.2-1.3 mg/dL Normal 0 [facility] (17735) Comment: Performed By: #### HBA1C, CM P ####[place] [address] [address], [place] [phone]- [phone] Calcium [Mass/Vol] 10.6 8.5-10.2 mg/dL High 04-16-2020 [facility] (86469) Comment: Performed By: #### HBA1C, CM P ####[place] [address] [address], [place] [phone] Chloride [Moles/Vol] 105 97-105 mmol/L Normal 0 [facility] (18070) Comment: Performed By: #### HBA1C, CM P ####[place] [address] [address] [facility], [place] [phone] CO2 [Moles/Vol] 21 22-30 mmol/L Low 04-16-2020 [facility] (46688) Comment: Performed By: #### HBA1C, CM P ####[facility] [address] [place], [place] [phone]- [phone] Creatinine [Mass/Vol] 0.79 0.58-0.96 mg/dL Normal 04-16-20 20 [facility] (64653) Comment: Performed By: #### HBA1C, CM P ####[facility] [address], [place] [phone]- [phone] eGFR- Amer. >60 Normal 04-16-2020 [facility] (72468) Comment: Performed By: #### HBA1C, CM P ####[facility] [place] [address] [phone] GFR/1.73 sq M predicted >60 mL/min/{1.73_m2} Normal 04-16-2020 [facility] among non-blacks [facility] (53883) (S/P/Bld) [Vol rate/Area] Comment: Result Comment: eGFR [...] Performed By: #### HBA1C, CM P ####[facility] [address] [place], [place] [phone]- [phone] Glucose [Mass/Vol] 138 74-99 mg/dL High 04-16-2020 [facility] (89929) Comment: Result Comment: The [place] Diabetes Association (ADA) provides guidance for cutoff [...] for diagnosis of diabetes. Reference: Standards of [facility] in Diabetes 2016, [place] Diabetes Association. Diabetes Care. 2016.39(Suppl 1). Performed By: #### HBA1C, CM P ####[place] [address] [address], [place] [phone]- [phone] Potassium [Moles/Vol] 4.4 3.7-5.1 mmol/L Normal 04-16-20 [facility] (73192) Comment: Performed By: #### HBA1C, CM P ####[place] [address] [address], [place] [phone] Protein [Mass/Vol] 7.9 6.3-8.0 g/dL Normal 04-16-2020 [facility] (22204) Comment: Performed By: #### HBA1C, CM P ####[place] [address] [address], [place] [phone]- [phone] Sodium [Moles/Vol] 142 136-144 mmol/L Normal 04-16-2020 [facility] (52944) Comment: Performed By: #### HBA1C, CM P ####[place] [address] [address], [place] [phone]- [phone] Urea nitrogen [Mass/Vol] 13 7-21 mg/dL Normal 04-16 [facility] (56600) Comment: Performed By: #### HBA1C, CM P ####[place] [address] [address], [place] [phone]- [phone] albumin/creat ratio on 2020-04-16 Albumin Urine Random 17.9 mg/L Normal 0 [facility] (31511) Comment: Performed By: #### UACR #### [place] [address] [place], [place] [phone] Albumin/Creat Ratio 12 <30 mg/g Normal 04-16-2020 [facility] (41220) Comment: Result Comment: Adult Male a nd [...] 3(1), 1-150. Performed By: #### UACR #### [facility] [place], [place] [phone] Creatinine,Urine,Ran 143.3 20-300 mg/dL Normal 0 [facility] (89000) Comment: Performed By: #### UACR #### [facility] [place], [place] [phone] cnpn on 2020-04-10 CNPN Telephone (FAMWS) Normal 04-10-2020 [facility] ABE STEVENSON ([id number]) 1960 [facility] Date Time Provider Department (04179) 04/10/20 [facility] During your visit today, we recorded the following informati on about you: Renate Velasco LPN 04/10/2020 11:56 AM Signed Dottie with [facility] calling with plan of care for patient. Please advise Dottie PH: [phone]. 1.. Nursing for 2 to 3 times [...] insulin (HCC) [E11.9] Order(s):HOME BLOOD GLUCOSE MONITOR [[id number]] Order #: [id number] Lancets lancetsTest blood sugar(s) 1 times daily. [...] 04/10/20 progress on 2020-03 PROGRESS HNO ID: [id number] Normal 04-06-2020 [facility] Author: Carly Rogers ([id number]) Service: ? Author Type: Physician Type: Progress Notes Filed: 04/06/2020 3:10 PM Note Text: Noted Carly Rogers MD PROGRESS HNO ID: [id number] Normal 04-06-2020 [facility] Author: Cathy Salazar MA ([id number]) Service: ? Author Type: [employer] Type: Progress Notes Filed: 04/06/2020 3:10 PM Note Text: TRANSITION CARE MANAGEMENT (TCM) INITIAL CONTACT [employer] Outreach Provider Action/FYI: Initial contact with patient post discharge, spoke to pedro lazaro Patient identified by name and . TRANSITION CARE MANAGEMENT INITIAL OUTREACH DOCUMENTATION: Date of Outreach: 04/06/2020 04/06/2020 Outreach Attempt 1: Contact Made - Date of Discharge 04/05/2020 04/05/2020 Some recent data might be hidden SUMMARY: -Pt discharged from [facility] on 04/05/20. -Admitted for: Abcess right [...] Yes Medical records from recent hospitalization: [facility] cnptoutreach on CNPTOUTREACH Patient Outreach (FAMPWS) Normal 0 04-06-2020 [facility] ABE STEVENSON ([id number]) 1960 [facility] Time Provider Department (29074) 04/06/20 CARLY ROGERSPWS During your visit today, we recorded the following informati on about you: Cathy Salazar MA, MA 04/06/2020 3:10 PM Signed TRANSITION CARE MANAGEMENT (TCM) INITIAL CONTACT [employer] Outreach Provider Action/FYI: Initial contact with patient post discharge, spoke to pedro lazaro Patient identified by name and . TRANSITION CARE MANAGEMENT INITIAL OUTREACH DOCUMENTATION: Date of Outreach: 04/06/2020 04/06/2020 Outreach Attempt 1: Contact Made - Date of Discharge 04/05/2020 04/05/2020 Some recent data might be hidden SUMMARY: -Pt discharged from [facility] on 04/05/20. -Admitted for: Abcess right [...] Status:Closed by CARLY ROGERS MD [facility]FAMPWS) Normal 04-06-2020 [facility] ABE STEVENSON ([id number]) 1960 [place] Date Time Provider Department (82338) 04/06/20 [facility] During your visit today, we recorded the following informati on about you: Bea Santana RN 04/06/2020 10:34 AM Signed nurse Leticia from [facility] call ed, verified pt by name and birthdate. Leticia states she would like order for home care to start tomorrow. Please advise Bea Rogers MD 04/06/2020 11:53 AM Signed OK for Home Care as requested MD Cathy Lacne MA, MA 04/06/2020 1:41 PM Signed Leticia t informed, verbalized understanding. Cathy Salazar MA Allergies As of Date: 04/06/2020 Noted Allergy Reaction ENALAPRIL 01/17/2013 3 - Cough Date Reviewed: 03/23/2020 Reviewed by: Adriana Haider Ma - Fully Assessed Reason for Visit: fdc care orders [Other] Prescriptions as of 04/06/2020 [...] on 2020-04-05 CNPN Telephone (FAMPWS) Normal 04-05-2020 [facility] ABE STEVENSON ([id number]) 1960 [facility] Date Time Provider Department ([id number]) 04/05/20 [facility] your visit today, we recorded the following informati on about you: Ruby Swenson Pss 04/05/2020 12:44 PM Signed Patient is calling to inform doctor that she has been admitt ed to [facility] earlier this week for a Diabetic [...] see how she is doing with the [facility] also. MD Adriana Lance Ma 04/05/2020 [...] Refill (FAMPWS) Normal 03-26-2020 Jose Rafael janneth [facility] ABE STEVENSON ([id number]) 1960 [facility] Date Time Provider Department ([id number]) 03/26/20 CARLY ROGERS [facility] During your visit [...] 03/27/20 progress on 2020-03 PROGRESS HNO ID: [id number] Normal 03-23-2020 [facility] Author: Carly Rogers [facility] ([id number]) Service: ? Author Type: Physician Type: Progress [...] bitten by a spider and went to [facility] ER last year in June 12, [...] half ppd. Doing well; [facility] looking for apartment ; stress level good. Past medical history, appointments, medications, allergies nancy parisi. Previous Medical History PAST MEDICAL HISTORY Diagnosis Date - Arthritis, hip - Diabetes mellitus (HCC) 03/2012 - Family history of colon cancer Father 55 - Family history of premature coronary artery disease mother [place] at 50 - History of colon polyps 03/07/2013 - HTN (hypertension) - Hyperlipemia - Obesity - Rosacea - Seborrheic dermatitis - Vitamin D deficiency Previous Surgical History PAST SURGICAL HISTORY Procedure Laterality Date - COLONOSCOPY AND POLYPECTOMY 03/07/13 repeat due 2017, tubular adenoma - PAST SURGICAL HISTORY OF cyst removed from uterus while - TOTAL HIP JOINT REPLACEMENT Left 02/2018 [facility] - TOTAL HIP JOINT REPLACEMENT Right 06/2018 [facility] Family History FAMILY HISTORY Problem Relation Age of Onset - Coronary Artery Disease Mother 50 [place] - Diabetes Mother 40 age 68 - Colon Cancer Father 55 age 58 - Diabetes Sister 60 - Arthritis Sister - Osteoporosis Sister Patient Allergies ALLERGIES Allergen Reactions - Enalapril Cough Current Medications Current Outpatient Medications on File Prior to Visit Medication Sig - cephALEXin (KEFLEX) 500 mg capsule EVERY 6 HOURS - COMPOUNDED PRESCRIPTION GustMed AirCurve 10 S VPAP machine with heated humidity and heated tubing. Pressure set to 22/16 cm H2O. Personalis. - atorvastatin (LIPITOR) 10 mg tablet Take [...] dependently gathered by the clinical operations support manager and the remaining scr ibed note accurately describes my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 09/20/2019 11:34 PM Note Text: September 19, 2019 PID: [id number] Abe Stevenson [address] [place] [address] Dear Ms. Stevenson, We are pleased to [...] report will be kept on file at [facility] as part of your permanent medical record and are available f or your continuing care. Thank you for allowing us to help in meeting your health car e needs. Sincerely, Dr. Jones Interpreting Radiologist [facility] (Normal over 40) bact/cand vag grm st on 2019-09-19 Bact/Cand Vag Grm Sp. Request/Comment: - Swab Norm al 09-19-2019 [facility] [id number] Smear Result - BACTERIAL VAG INOSIS RESULT: Stain results indicate mixed morphotypes consistent with transition from normal vaginal marquise. No Polymorphonuclear Leukocytes Few Epithelial cells No Yeast observed Comment: Performed By: #### BVCNSM ## ## [facility] [address] [place], [place] [address] progress on 2019-08 PROGRESS HNO ID: [id number] Normal 08-24-2019 [facility] Author: Carly Rogers [facility] ([id number]) Service: ? Author Type: Physician Type: Progress [...] Cardio, Dr. Carrero. 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 2 year degree in Estate Assist design. 1 son Moved from [place] Used to swim daily EXAM: BP 130/80 [...] 65 Completed Data reviewed Hospital reports from [facility] 08/06/19-08/09/19 ASSESSMENT/PLAN: 1. Essential hypertension - [...] dependently gathered by the clinical operations support manager and the remaining scr ibed note accurately describes my personal service to the patient Carly Rogers MD The documentation for this note was completed by Adriana chris Ma acting as scribe for Carly Rogers MD. August 24, 2019 9:43 AM . cnov on 2019-08-24 CNOV Office Visit (FAMPWS) Normal 08-24-20 19 [facility] ABE STEVENSON ([id number]) 1960 [facility] Date Time Provider Department ([id number]) 08/24/19 10:00 AM CARLY ROGERS During your visit today, we recorded the following informati on about you: Temperature Pulse Respiration Blood pressure 97.7 degrees 74/minute 18/minute 130/80 Weight 105.2 kg Carly Rogers MD 08/24/2019 11:27 AM Signed Chief Complaint Patient presents with: Hospital Follow Up Imm/Inj: Flu Vaccine HPI Abe Stevenson is a 58 year old female who presents here t [facility] for hospital follow up. Pt is not a TCM as she was scheduled outside of the 14 day [facility] frame. Was unable to reach pt to reschedule sooner. Had a pacemaker placed, is following with Cardio, Dr. Carrero. Was admitted to the [facility] on 08/06/19 till 08/09/19 for dizziness [...] history of premature coronary artery disease mother [place] at 50 - History of colon polyps 03/07/2013 - HTN (hypertension) - Hyperlipemia - Obesity - Rosacea - Seborrheic dermatitis - Vitamin D deficiency Previous Surgical History PAST SURGICAL HISTORY Procedure Laterality Date - COLONOSCOPY AND POLYPECTOMY 03/07/13 repeat due 2017, tubular adenoma - PAST SURGICAL HISTORY OF cyst removed from uterus while - TOTAL HIP JOINT REPLACEMENT Left 02/2018 [facility] - TOTAL HIP JOINT REPLACEMENT Right 06/2018 [facility] Family History FAMILY HISTORY Problem Relation Age of Onset - Colon Cancer Father 55 age 58 - Coronary Artery Disease Mother 50 [place] - Diabetes Mother 40 age 68 - [...] Not on file 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 2 year degree in Estate Assist design. 1 son Moved from [place] Used to swim daily EXAM: BP 130/80 [...] 65 Completed Data reviewed Hospital reports from [facility] 08/06/19-08/09/19 ASSESSMENT/PLAN: 1. Essential hypertension - [...] dependently gathered by the clinical operations support manager and the remaining scr ibed [...] QUADRIVALENT AGE 3 YRS PLUS + IM [[id number]] Order #: [id number] losartan (COZAAR) 50 mg tabletTake 1 tablet [...] Location 06-25-2020 - Documentation External Provider [facility] 06-25-2020 procedure 12-21-2016 - Emergency department Pain in right INC GEMS NO Facili ty:[facility] 12-21-2016 patient visit hip REFERRING [facility] 07-24-2020 - Letter encounter Carly Rogers [facility] 07-24-2020 [facility] 07-02-2020 - Patient encounter External Provider [facility] 07-02-2020 procedure 06-25-2020 Patient encounter External Provider Rafia [facility] procedure 08-20-2020 - Refill Cramp Carly Manuel [facility] icine 08-20-2020 [facility] Comment: Refill Request 07-30-2020 - 07-30-2020 Refill Cough Carly Manuel [facility] Comment: Refill Request 07-02-2020 Results Only External Provider External-N [facility] Procedures Procedure Name Date Provider Location [facility]TERNAL [facility]-02-[facility][id number][facility] Mammography 09-19-2019 - 09-19-2019 [facility] ([id number]) Colonoscopy 03-07-2013 - 03-07-2013 [facility] ([id number]) Plan of Treatment Plan Description Date Location PAP TESTING PAP TESTING 09-19-2024 - [facility] 09-19-2024 ([id number]) ANNUAL PCP TEAM CHRONIC ANNUAL PCP TEAM CHRONIC 04-19-2021 - [facility] DISEASE VISIT DISEASE VISIT 04-19-2021 ([id number]) URINE ALBUMIN:CREATININE URINE ALBUMIN:CREATININE 04-16-2021 - [facility] RATIO RATIO 04-16-2021 ([id number]) LDL CHOLESTEROL LDL CHOLESTEROL 12-16-2020 - [facility] 12-16-2020 ([id number]) HBA1C HBA1C 10-16-2020 - [facility] 10-16-2020 ([id number]) MAMMOGRAM MAMMOGRAM 09-19-2020 - [facility] 09-19-2020 ([id number]) INFLUENZA (#1) INFLUENZA (#1) 2020 - [facility] 07-17-2020 ([id number]) DIABETIC FOOT EXAM DIABETIC FOOT EXAM 04-19-2020 - [facility] 04-19-2020 ([id number]) HPV TESTING HPV TESTING 07-11-2018 - [facility] 07-11-2018 ([id number]) COLONOSCOPY COLONOSCOPY 03-07-2018 - [facility] 03-07-2018 ([id number]) COLORECTAL CANCER COLORECTAL CANCER 03-07-2018 [facility] inic SCREENING,SEE MODIFIER SCREENING,SEE MODIFIER (0 1027) DILATED RETINAL EXAM DILATED RETINAL EXAM 11-12-2017 - [facility] 11-12-2017 ([id number]) SHINGRIX VACCINE (1 of SHINGRIX VACCINE (1 of 2010 - [facility] 2) 2) 2010 (06092) DTAP,TDAP,TD (1 - Tdap) DTAP,TDAP,TD (1 - Tdap) 1979 - [facility] 1979 (53628) BP CONTROLLED (<130/80) BP CONTROLLED (<130/80) 1978 - [facility] 1978 (46261) HEPATITIS C SCREENING HEPATITIS C SCREENING 1978 - [facility] 1978 (30676) HIV SCREENING HIV SCREENING 1978 - [facility] 1978 (60470) no information [facility] (06897) Immunizations Vaccine Notes Status Date Location Influenza Vaccine, influenza virus (completed) 08-03-2013 - [facility] Split-Non Spec vaccine, unspecified 08-03-2013 (4419 [id number]) formulation Influenza Seasonal influenza, injectable, (completed) 08-24-2019 - [facility] Inj Quadrivalent Age quadrivalent, contains 08-24-2019 (12589) 3+ preservative Influenza Seasonal influenza, injectable, (completed) 10-11-2018 - [facility] Inj Quadrivalent Age quadrivalent, contains 10-11-2018 (09176) 3+ preservative Influenza Seasonal influenza, injectable, (completed) 10-25-2015 - [facility] Inj Quadrivalent Age quadrivalent, contains 10-25-2015 (44241) 3+ preservative Influenza Seasonal influenza, seasonal, (completed) 07-31-2014 [facility] Inj Age 3+ injectable 07-31-2014 (29181) Pneumococcal-13 Vac pneumococcal conjugate (completed) 09-06-2014 - [facility] Conjugate vaccine, 13 valent 09-06-2014 (97737) [facility]neumov[facility] pneum[facility] ([facility]) [facility], 03-12-2015 (441 95) 23 valent Influenza Recombinant Seasonal, trivalent, (completed) 08-31-2016 - [facility] Seasonal Inj PresFree recombinant, injectable 08-31-20 16 (84828) influenza vaccine, preservative free Payers Payer Name Policy Number Location EDDIE LEGER O [id number] [facility] ([id number]) [employer] MEDICARE [id number] [facility] (44 195) The following information is from the original human readable contentNo Payer Records Found Social History Type Social History Date Location Description Tobacco smoking status Current every day smoker 04-19-2020 - [facility] NHIS 04-19-2020 (27282) History of tobacco use Cigarette Smoker [facility] (34582) Cigarettes smoked 04-19-2020 - [facility] ic current (pack per day) 04-19-2020 (37448) - Reported Tobacco use and Never used 04-19-2020 - [facility] exposure 04-19-2020 (69846) Alcohol intake Current non-drinker of 04-19-2020 - [facility] alcohol (finding) 04-19-2020 (51206) Tobacco Comment 10 cigarettes per day 04-19-2019 - [facility] 04-19-2019 (41604) Alcohol Comment 2 drinks/month 05-25-2014 - [facility] 05-25-2014 (46936) Sex Assigned At Not on file [facility] ([id number]) The following information is from the original [...] premature coronary artery disease 04/17/2020 Overview: mother [place] at 50 Arthritis, hip 04/17/2020 Problem Noted Date Resolved Date Peripheral polyneuropathy 07/09/2017 04/17/2020 Skin lesion, superficial 06/15/2015 04/17/2020 Right leg pain 06/07/2015 04/17/2020 Abdominal pain, unspecified site 05/12/2015 020 Anal fissure 07/31/2014 04/17/2020 History of colon polyps 03/07/2013 04/17/2020 Family history of colon cancer 0 Overview: Father 55 Family history of premature coronary artery disease 04/17/2020 Overview: mother [place] at 50 Arthritis, hip 04/17/2020 Problem Noted Date Resolved Date Peripheral polyneuropathy 07/09/2017 04/17/2020 Skin lesion, superficial 06/15/2015 04/17/2020 Right leg pain 06/07/2015 04/17/2020 Abdominal pain, unspecified site 05/12/2015 020 Anal fissure 07/31/2014 04/17/2020 History of colon polyps 03/07/2013 04/17/2020 Family history of colon cancer 0 Overview: Father 55 Family history of premature coronary artery disease 04/17/2020 Overview: mother [place] at 50 Arthritis, hip 04/17/2020 Assessments Diagnosis Cough Diagnosis Muscle cramps Cramp of limb Reason for Referral Status Reason Specialty Diagnoses / Procedures Referred By C ontact Referred To Contact Closed Diagnoses Muscle cramps Carly Rogers [address] [place], [place] [address] Phone: Additional Source Comments FOR RECORDS PERTAINING [...] BE BASED ON THE PRIMARY CLINICAL RECORDS. [facility] provides no warranty or guarantee of the accuracy or completeness of information in this document. UNRECOGNIZED CONTENT PROVIDED BELOW FOR UNRECOGNIZED SECTION INFORMATION SOURCE DATE CREATED AUTHOR AUTHOR'S COREYDOREENO N 05/12/2018 [facility] DATE CREATED AUTHOR AUTHOR'S ORGANIZATIO N 08/20/2020 [facility] UNRECOGNIZED CONTENT PROVIDED BELOW FOR UNRECOGNIZED SECTION Source Comments In the event this information is protected by the Federal Confidentiality of Alcohol and Drug Abuse Patient Records regulations: The Federal rules restrict any use of the information to criminally investigate or prosecute any alcohol or drug abuse patient.[facility] the event this information is protected by the Federal Confidentiality of Alcohol and Drug Abuse Patient Records regulations: The Federal rules restrict any use of the information to criminally investigate or prosecute any alcohol or drug abuse patient.[facility] the event this information is protected by the Federal Confidentiality of Alcohol and Drug Abuse Patient Records regulations: The Federal rules restrict any use of the information to criminally investigate or prosecute any alcohol or drug abuse patient.[facility] the event this information is protected by the Federal Confidentiality of Alcohol and Drug Abuse Patient Records regulations: The Federal rules restrict any use of the information to criminally investigate or prosecute any alcohol or drug abuse patient.[facility] the event this information is protected by the Federal Confidentiality of Alcohol and Drug Abuse Patient Records regulations: The Federal rules restrict any use of the information to criminally investigate or prosecute any alcohol or drug abuse patient.[facility] UNRECOGNIZED CONTENT PROVIDED BELOW FOR UNRECOGNIZED [...]
--- OUTSIDE RECORDS SUMMARY | 2020-08-28 13:09 | XMS RPT_ITS | CCD ---
:1960 External Reference #:[id number] Author Organization [employer] Care Team Providers Name Role Phone Gigzon Unavailable Unavailable NO REFERRING DR Mcdermott Unavailable DENISE SEGURA Unavailable Unavailable Carly Rogers Primary Care Provider Allergies Reported Allergen Reaction(s) Severity Date of Onset Location enalapril Translations: [ Cough 01-17-2013 - [facility] ENALAPRIL] System Reposito ry Medications Medication Name Sig Date Prescriber Location Acetaminophen acetaminophen (TYLENOL 01-29-2017 [facility] EXTRA STRENGTH) [address] (4419 5) tablet Indications: Chronic pain of left knee , Pain in right hip Take 1 tablet by mouth every 6 hours as needed for Pain. 120 tablet 2 01/29/2017 Active Comment: Take 1 tablet by mouth every 6 hours as needed for Pain. Amitriptyline amitriptyline (ELAVIL) 06-19-2020 Carly Manuel [facility] 10 mg tablet (11466) Indications: Depression, major, recurrent, mild (HCC) Take 1 tablet by mouth daily at bedtime. 30 tablet 5 06/19/2020 Active Comment: Take 1 tablet by mouth daily at bedtime. amLODIPine amLODIPine (NORVASC) 03-26-2020 Carly Manuel [facility] mg tablet Indications: (4419 5) Essential hypertension Take 1 tablet by mouth once daily. 30 tablet 03/26/2020 Active Comment: Take 1 tablet by mouth once daily. atorvastatin atorvastatin (LIPITOR) 05-21-2020 Carly Manuel [facility] 10 mg tablet (15365) Indications: Mixed hyperlipidemia Take 1 tablet by mouth once daily. 30 tablet 11 05/21/2020 Active Comment: Take 1 tablet by mouth once daily. benzonatate benzonatate (TESSALON 07-30-2020 Carly Manuel [facility] PERLMAMI) 100 mg capsule (4419 5) Indications: Cough Take 1 capsule by mouth three times daily as needed for Cough. 30 capsule 2 07/30/2020 Active benzonatate (TESSALON 03-23-2020 - [facility]) 100 mg capsule 07-30-2020 (27691) Indications: Cough Take 1 capsule by mouth three times daily as needed for Cough. 30 capsule 2 03/23/2020 07/30/2020 Discontinued Comment: Take 1 capsule by mouth thre e times daily as needed for Cough. Cephalexin cephALEXin (KEFLEX) 500 mg 08-25-2019 [facility] Provider [facility] (25643) capsule EVERY 6 HOURS 0 08/25/2019 Active Comment: EVERY 6 HOURS COMPOUNDED COMPOUNDED 09-16-2019 Carly Manuel [facility] PRESCRIPTION PRESCRIPTION ResMed (35502) AirCurve 10 S VPAP machine with heated humidity and heated tubing. Pressure set to 22/16 cm H2O. mGaadi. 0 09/16/2019 Active COMPOUNDED PRESCRIPTION ResMed 09-16-2019 Carly [facility] (45650) AirCurve 10 S VPAP machine with heated humidity and heated tubing. Pressure set to 22/16 cm H2O. mGaadi. 0 09/16/2019 Active COMPOUNDED PRESCRIPTION ResMed 09-16-2019 Carly [facility] (89013) AirCurve 10 S VPAP machine with heated humidity and heated tubing. Pressure set to 22/16 cm H2O. mGaadi. 0 09/16/2019 Active COMPOUNDED PRESCRIPTION ResMed 09-16-2019 Carly [facility] (85892) AirCurve 10 S VPAP machine with heated humidity and heated tubing. Pressure set to 22/16 cm H2O. mGaadi. 0 09/16/2019 Active COMPOUNDED PRESCRIPTION ResMed 09-16-2019 Carly [facility] (60062) AirCurve 10 S VPAP machine with heated humidity and heated tubing. Pressure set to 22/16 cm H2O. mGaadi. 0 09/16/2019 Active Comment: ResMed AirCurve 10 S VPAP ma elsa with heated humidity and heated tubing. Pressure set to 22/16 cm H2O . mGaadi. cyclobenzaprine cyclobenzaprine 08-24-2019 - Carly Manuel [place] (FLEXERIL) 10 mg 08-20-2020 [facility] (441 95) tablet Indications: Muscle cramps Take 1 tablet by mouth three times daily as needed. 30 tablet 5 08/20/2020 Active Comment: Take 1 tablet by mouth three times daily as needed. dulaglutide dulaglutide (TRULICITY) 04-19-2020 Carly Manuel [facility] 0.75 mg/0.5 mL pnij (41965) Indications: Type 2 diabetes mellitus without complication, without long-term current use of insulin (HCC) Inject 0.75 mg subcutaneously one time a week. Inject dose once per week. Discard Pen After 4 Pen 5 04/19/2020 Active Comment: Inject 0.75 mg subcutaneousl y one time a week. Inject dose once per week. Discard Pen After telmisartan telmisartan (MICARDIS) 05-23-2020 Carly Manuel [facility] 40 mg tablet Take 1 (57457) tablet by mouth once daily. 30 tablet 5 05/23/2020 Active Comment: Take 1 tablet by mouth once daily. Problems Active Problems Category Problem Name Status Date Location Cardiac dysrhythmias Sick sinus syndrome Active 08-24-2019 - [facility] (94833) Conduction disorders Cardiac pacemaker in Active 08-24-2019 - [facility] situ (72073) Diabetes mellitus Type 2 diabetes Active 03-29-2013 - [place] [facility] without complication mellitus without [facility] complications (85517) Disorders of lipid Hyperlipidemia, Active 03-29-2013 - [place] [facility] metabolism unspecified [facility] (23860) Essential hypertension Essential (primary) Active 03-29-2013 - [place] [facility] hypertension [facility] (02935) Mood disorders Bipolar disorder, Active 12-21-2016 - [place] [facility] (30980) Nutritional deficiencies Vitamin D deficiency Active [facility] (01206) Osteoarthritis Unilateral primary Active 09-06-2015 - [place] [facility] osteoarthritis, right [facility] hip (87057) Other connective tissue 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-2016 - [facility] [facility] disease artificial hip joint [facility] (61203) Other connective tissue Cramp Active [facility] disease (84733) Other inflammatory Rosacea Active 03-28-2013 - [facility] condition of skin (97978) Other lower respiratory Cough Active [facility] disease (24279) Other nervous system Other chronic pain Active 12-21-2016 - [facility] (31086) Other nervous system Sural neuropathy Active 06-02-2015 - [facility] disorders (17911) Other nutritional; Morbid obesity Active 09-19-2019 - [facility] endocrine; and metabolic (44 195) disorders Other nutritional; Obesity Active 03-29-2013 - [facility] endocrine; and metabolic (44 195) disorders Residual codes; Obstructive sleep apnea Active 08-24-2019 - [facility] unclassified syndrome (10231) Schizophrenia and other Schizophrenia, Active 12-21-2016 - [facility] psychotic disorders unspecified [facility] (82660) Past or Other Problems Category Problem Name Status Date Location Other inflammatory Seborrheic Completed 03-28-2013 - [facility] condition of skin dermatitis (02526) Other non-traumatic Pain in right hip Completed 12-21-2016 - [facility] [facility] joint disorders [facility] m (49828) Other screening for Magnetic resonance Completed 07-09-2017 - [facility] suspected conditions imaging of brain (44 195) (not mental disorders abnormal or infectious disease) Results Result Name Value Range Unit Interpretation Flag Date Location obsolete on 2020-08 OBSOLETE Refill (FAMPWS) Normal 08-20-2020 [facility] ABE STEVENSON ([id number]) 1960 [facility] Time Provider Department (35980) 08/20/20 CARLY ROGERS During your visit today, [...] Normal 07-30-2020 Jose Rafael lagunas ABE Auguste ([id number]) 1960 [facility]ly [facility] Date Time Provider Department (23155) 07/30/20 CARLY ROGERS FAMPWS During your visit [...] 2020-07-24 [facility] Letter Text Normal 07-24-2020 [facility] (88869) obsolete on 2020-06 OBSOLETE Refill (FAMPWS) Normal 06-19-2020 Jose Rafael lagunas [facility] ABE STEVENSON ([id number]) 1960 [facility] Date Time Provider Department (45251) 06/19/20 CARLY ROGERS During your visit today, [...] on 2020-06-15 CNPN Telephone (FAMPWS) Normal 06-15-2020 [place] [facility] ABE STEVENSON ([id number]) 1960 Kadeem BOURNE [place] Date Time Provider Department (47863) 06/15/20 CARLY ROGERS During your visit today, we recorded the following informati on about you: Macie Lloyd MA 06/15/2020 8:42 AM Signed Received forms for pt from [facility], requesting verification of disability. Please review forms, complete, then fax back to [phone]. Macie Rogers MD 06/18/2020 5:11 PM Signed [...] (FAMPWS) Normal 06-11-2020 [facility] ABE STEVENSON ([id number]) 1960 F [place]LA [place] Date Time Provider Department (95764) 06/11/20 CARLY ROGERS During your visit today, we recorded the following informati on about you: Bea Santana RN 06/11/2020 2:44 PM Signed Archana from [facility] tayla led, verified pt by [...] on 2020-05-23 CNPN Telephone (FAMPWS) Normal 05-23-2020 [place] [facility] ABE STEVENSON ([id number]) 1960 [facility] Date Time Provider Department (81125) 05/23/20 CARLY ROGERS During your visit today, we recorded the following informati on about you: Carley Whiting PACO 05/23/2020 2:50 PM Signed today 162/88 pulse 88 slight headache in the morning. Headache relieved with Tylen ol. Taking amlodipine every morning . Patient had office visit [facility] Dr Carrero yesterday, she said no [...] She will update pt and advise she pickle pumper medication. Macie Lloyd MA Allergies As of [...] Refill (FAMPWS) Normal 05-21-2020 Jose Rafael lag[place] [facility] GRAHAMABE FALK ([id number]) 1960 [facility] Date Time Provider Department (63077) 05/21/20 CARLY ROGERS During your visit today, [...] on 2020-05-09 CNPN Telephone (FAMWS) Normal 05-09-2020 [place] [facility] ABE STEVENSON ([id number]) 1960 TAYLA [place] Date Time Provider Department (49268) 05/09/20 CARLY ROGERS During your visit today, we recorded the following informati on about you: Renate Denis RN 05/09/2020 2:11 PM Signed Nurse Kassandra calls from [facility]. Did woun d care on [...] review and advise. Please call Kassandra at [phone] with any new orders. DORINA Tracey MD [...] 2020-05-04 CNPN Telephone (FAMPWS) Normal 05-04-2020 [place] [facility] ABE STEVENSON ([id number]) 1960 [facility] Date Time Provider Department (80120) 05/04/20 CARLY ROGERS During your visit today, [...] [facility] Adriana Haider Ma Allergies As of Date: [...] 05/04/20 progress on 2020-04 PROGRESS HNO ID: [id number] Normal 04-19-2020 [facility] Author: Carly Rogers [place] ([id number]) Service: ? Author Type: Physician Type: Progress [...] setting and agrees. Pt currently residing at [facility]. Has [...] care of her supplies and Kindr rosaura [facility] takes care of the wound. Has been [...] capsule EVERY 6 HOURS - COMPOUNDED PRESCRIPTION [employer] AirCurve 10 S VPAP machine with heated humidity and heated tubing. Pressure set to 22/16 cm H2O. myDocket. - atorvastatin (LIPITOR) 10 mg tablet Take [...] AGE 65 Completed INFLUENZA Completed [facility] Appointment on 04/16/2020 Component Date Value [...] Histories in dependently gathered by the clinical manager support services and the remaining scr ibed note accurately describes my personal service to the patient. Carly Rogers MD The documentation for this note was completed by Macie cruz MA acting as scribe for Carly Rogers MD. April 19, 2020 9:37 AM. Macie shortov on 2020-04-19 CNOV Office Visit (FAMPWS) Normal 04-19-[address] [place] [address] [facility] ABE STEVENSON ([id number]) 1960 [facility] Date Time Provider Department (20180) 04/19/20 9:40 AM CARLY ROGERS During your [...] setting and agrees. Pt currently residing at [facility]. Has been there since [...] Center takes care of her supplies and [facility] takes care of the wound. Has [...] - TOTAL HIP JOINT REPLACEMENT Left 02/2018 [facility] - TOTAL HIP JOINT REPLACEMENT Right 06/2018 [facility] Family History FAMILY HISTORY Problem [...] capsule EVERY 6 HOURS - COMPOUNDED PRESCRIPTION [employer] AirCurve 10 S VPAP machine with heated humidity and heated tubing. Pressure set to 22/16 cm H 2O. mGaadi. - atorvastatin (LIPITOR) 10 mg tablet Take [...] AGE 65 Completed INFLUENZA Completed Data reviewed [facility] Appointment on 04/16/2020 Component Date Value [...] Histories in dependently gathered by the clinical manager support services and the remaining scr ibed note accurately describes my personal service to the patient. Carly Rogers MD The documentation for this note was completed by Macie cruz MA acting as scribe for Carly Rogers MD. April 19, 2020 9:37 AM. Macie Lloyd MA Referring Provider: CARLY ROGERS [[id number]] Allergies As of Date: 04/19/2020 Noted Allergy [...] Pen AfterDisp: 4 PenRfl: 5 HGB A1C [YKHOE2Y] Order #: [id number] FUTURE COMP METABOLIC PANEL [SQCMP] Order #: [id number] FUTURE LIPID PANEL BASIC [SQLIPB] Order #: [id number] FUTURE Prescriptions as of 04/19/2020 Sig: LANCETS [...] on 2020-04-17 CNPN Telephone (FAMPWS) Normal 04-17-2020 [place] [facility] ABE STEVENSON ([id number]) 1960 [facility] Date Time Provider Department (74837) 04/17/20 [facility] During your visit today, we recorded the following informati on about you: Bea Santana RN 04/17/2020 3:39 PM Signed Leticia from [facility] called, verified pt by name [...] HbA1c (Bld) [Mass fraction] 171 mg/dL Normal [facility] (86024) Comment: Result Comment: eAG: (Estima jayna average glucose) is a calculated value from HgbA1c and is electroplating sales representative of the average blood glucose level in the last 2-3 month period. Performed By: #### HBA1C, CM P ####[address] [phone] HbA1c (Bld) [Mass fraction] 7.6 4.3-5.6 % High [facility] (40861) Comment: Result Comment: [place] [employer] guidelines indicate that patients with HgbA1c in the range 5.7-6.4% are at increased risk for development of diabetes, and intervention by lifestyle modification may be beneficial. HgbA1c greater o r equal to 6.5% is considered diagnostic of diabetes. Performed By: #### HBA1C, CM P ####[place] [address] [address], [place] [phone]- [phone] comp metabolic panel on 2020-04-16 Albumin [Mass/Vol] 4.1 3.9-4.9 g/dL Normal 04-16-2020 [facility] (92434) Comment: Performed By: #### HBA1C, CM P ####[address] [phone] ALP [Catalytic activity/Vol] 120 34-123 U/L Normal 0 04-16-2020 [facility] (98769) Comment: Performed By: #### HBA1C, CM P ####[facility], [place] [phone]- [phone] ALT [Catalytic activity/Vol] 32 7-38 U/L Normal 0 04-16-2020 [facility] (72362) Comment: Performed By: #### HBA1C, CM P ####[place] [address], [place] [phone]- [phone] Anion gap [Moles/Vol] 16 9-18 mmol/L Normal 04-16-20 20 [facility] (04460) Comment: Performed By: #### HBA1C, CM P ####[place] [address], [place] [phone] AST [Catalytic activity/Vol] 35 13-35 U/L Normal 0 04-16-2020 [facility] (64173) Comment: Performed By: #### HBA1C, CM P ####[place] [address], [place] [phone]- [phone] Bilirubin [Mass/Vol] 0.2 0.2-1.3 mg/dL Normal 0 [facility] (34195) Comment: Performed By: #### HBA1C, CM P ####[place] [address], [place] [phone]- [phone] Calcium [Mass/Vol] 10.6 8.5-10.2 mg/dL High 04-16-2020 [facility] (60321) Comment: Performed By: #### HBA1C, CM P ####[place] [address], [place] [phone] Chloride [Moles/Vol] 105 97-105 mmol/L Normal 0 [facility] (47568) Comment: Performed By: #### HBA1C, CM P ####[place] [address] [facility], [place] [phone] CO2 [Moles/Vol] 21 22-30 mmol/L Low 04-16-2020 [facility] (36519) Comment: Performed By: #### HBA1C, CM P ####[facility] [address], [place] [phone]- [phone] Creatinine [Mass/Vol] 0.79 0.58-0.96 mg/dL Normal 04-16-20 20 [facility] (94186) Comment: Performed By: #### HBA1C, CM P ####[facility] [address], [place] [phone]- [phone] eGFR- Amer. >60 Normal 04-16-2020 [facility] (69198) Comment: Performed By: #### HBA1C, CM P ####[facility] [place] [address] [phone] GFR/1.73 sq M predicted >60 mL/min/{1.73_m2} Normal 04-16-2020 [facility] among non-blacks [facility] [place] (16991) (S/P/Bld) [Vol rate/Area] Comment: Result Comment: eGFR [...] By: #### HBA1C, CM P ####[facility] [address] [place], [place] [phone]- [phone] Glucose [Mass/Vol] 138 74-99 mg/dL High 04-16-2020 [facility] (80764) Comment: Result Comment: The [place] Diabetes Association (ADA) provides guidance for cutoff [...] for diagnosis of diabetes. Reference: Standards of [facility] in Diabetes 2016, [place] Diabetes Association. Diabetes Care. 2016.39(Suppl 1). Performed By: #### HBA1C, CM P ####[place] [address], [place] [phone]- [phone] Potassium [Moles/Vol] 4.4 3.7-5.1 mmol/L Normal 04-16-20 [facility] (72488) Comment: Performed By: #### HBA1C, CM P ####[place] [address], [place] [phone] Protein [Mass/Vol] 7.9 6.3-8.0 g/dL Normal 04-16-2020 [facility] (56173) Comment: Performed By: #### HBA1C, CM P ####[place] [address], [place] [phone]- [phone] Sodium [Moles/Vol] 142 136-144 mmol/L Normal 04-16-2020 [facility] (62514) Comment: Performed By: #### HBA1C, CM P ####[place] [address], [place] [phone] Urea nitrogen [Mass/Vol] 13 7-21 mg/dL Normal 04-16 [facility] (14241) Comment: Performed By: #### HBA1C, CM P ####[place] [address], [place] [phone] albumin/creat ratio on 2020-04-16 Albumin Urine Random 17.9 mg/L Normal 0 [facility] (67528) Comment: Performed By: #### UACR #### [place] [address] [place], [place] [phone] Albumin/Creat Ratio 12 <30 mg/g Normal 04-16-2020 [facility] (58039) Comment: Result Comment: Adult Male a nd [...] Performed By: #### UACR #### [facility] [place], [place] [phone] Creatinine,Urine,Ran 143.3 20-300 mg/dL Normal 0 [facility] (03278) Comment: Performed By: #### UACR #### [facility] [place], [place] [phone] cnpn on 2020-04-10 CNPN Telephone (FAMWS) Normal 04-10-2020 [place] [facility] ABE STEVENSON ([id number]) 1960 [facility] Date Time Provider Department (12750) 04/10/[address] [facility] During your visit today, we recorded the following informati on about you: Renate Velasco LPN 04/10/2020 11:56 AM Signed Dottie with [facility] calling with plan of care for patient. Please advise Dottie PH: [phone]. 1.. Nursing for 2 to 3 times [...] insulin (HCC) [E11.9] Order(s):HOME BLOOD GLUCOSE MONITOR [[id number]] Order #: [id number] Lancets lancetsTest blood sugar(s) 1 times daily. [...] 04/10/20 progress on 2020-03 PROGRESS HNO ID: [id number] Normal 04-06-2020 [facility] Author: Carly Rogers ([id number]) Service: ? Author Type: Physician Type: Progress Notes Filed: 04/06/2020 3:10 PM Note Text: Noted Carly Rogers MD PROGRESS HNO ID: [id number] Normal 04-06-2020 [facility] Author: Cathy Salazar MA ([id number]) Service: ? Author Type: Ict Programmer Type: Progress Notes Filed: 04/06/2020 3:10 PM Note Text: TRANSITION CARE MANAGEMENT (TCM) INITIAL CONTACT Ict Programmer Outreach Provider Action/FYI: Initial contact with patient post discharge, spoke to pedro lazaro Patient identified by name and . TRANSITION CARE MANAGEMENT INITIAL OUTREACH DOCUMENTATION: Date of Outreach: 04/06/2020 04/06/2020 Outreach Attempt 1: Contact Made - Date of Discharge 04/05/2020 04/05/2020 Some recent data might be hidden SUMMARY: -Pt discharged from [facility] on 04/05/20. -Admitted for: Abcess right [...] ? Yes Medical [facility] c[facility]out[facility] on CNPTOUTREACH Patient Outreach (FAMPWS) Normal 0 04-06-2020 [place] [facility] ABE STEVENSON ([id number]) 1960 [facility] Time Provider Department (54615) 04/06/20 CARLY ROGERSPWS During your visit today, we recorded the following informati on about you: Cathy Salazar MA, MA 04/06/2020 3:10 PM Signed TRANSITION CARE MANAGEMENT (TCM) INITIAL CONTACT Ict Programmer Outreach Provider Action/FYI: Initial contact with patient post discharge, spoke to pedro lazaro Patient identified by name and . TRANSITION CARE MANAGEMENT INITIAL OUTREACH DOCUMENTATION: Date of Outreach: 04/06/2020 04/06/2020 Outreach Attempt 1: Contact Made - Date of Discharge 04/05/2020 04/05/2020 Some recent data might be hidden SUMMARY: -Pt discharged from [facility] on 04/05/20. -Admitted for: Abcess right [...] Status:Closed by CARLY ROGERS MD [facility]) Normal 04-06-2020 [place] [facility] ABE STEVENSON ([id number]) 1960 [place] Date Time Provider Department (96946) 04/06/[address] [facility] During your visit today, we recorded the following informati on about you: Bea Santana RN 04/06/2020 10:34 AM Signed nurse Leticia from [facility] call ed, verified pt by [...] Ma - Fully Assessed Reason for Visit: retirement care orders [Other] Prescriptions as of 04/06/2020 [...] on 2020-04-05 CNPN Telephone (FAMPWS) Normal 04-05-2020 [place] [facility] ABE STEVENSON ([id number]) 1960 [facility] Date Time Provider Department (36044) 04/05/20 [facility] ROGERS [facility] During your visit today, we recorded the following informati on about you: Ruby Swenson Pss 04/05/2020 12:44 PM Signed Patient is calling to inform doctor that she has been admitt ed to [facility] earlier this week for a Diabetic abscess [...] see how she is doing with the [facility] also. MD Adriana Lance Ma 04/05/2020 4:54 [...] Refill (FAMPWS) Normal 03-26-2020 Jose Rafael janneth [facility] ABE STEVENSON ([id number]) 1960 [facility] Date Time Provider Department ([id number]) 03/26/20 CARLY ROGERS FAMENRIKE During your visit [...] 03/27/20 progress on 2020-03 PROGRESS HNO ID: [id number] Normal 03-23-2020 [facility] Author: Carly Rogers [place] ([id number]) Service: ? Author Type: Physician Type: Progress [...] bitten by a spider and went to [facility] ER last year in June 12, [...] - TOTAL HIP JOINT REPLACEMENT Left 02/2018 [facility] - TOTAL HIP JOINT REPLACEMENT Right 06/2018 [facility] Family History FAMILY HISTORY Problem [...] capsule EVERY 6 HOURS - COMPOUNDED PRESCRIPTION WebSafetyMed AirCurve 10 S VPAP machine with heated humidity and heated tubing. Pressure set to 22/16 cm H2O. myDocket. - atorvastatin (LIPITOR) 10 mg tablet Take [...] Histories in dependently gathered by the clinical manager support services and the remaining scr ibed note accurately describes my personal service to the patient. Carly Rogers MD The documentation for this note was completed by Adriana chris Ma acting as scribe for Carly Rogers MD. March 23, 2020 8:46 AM. Adriana Haider Ma obsolete on 2020-03 OBSOLETE Refill (FAMPWS) Normal 03-22-2020 [facility] ABE STEVENSON ([id number]) 1960 T[place] Date Time Provider Department ([id number]) 03/22/20 CARLY ROGERS During your visit today, [...] bitten by a spider and went to [facility] last year in June 12 2019, [...] Date Reviewed: 11/20/2019 Reviewed by: Dinorah Milligan Utilities Equipment Repairer - Fully Assessed Reason for Visit: Refill [...] HAIDER MA on 03/22/20 [facility]n [facility]) [facility] 02-06-2020 [place] [facility] ABE STEVENSON ([id number]) 1960 [facility] Date Time Provider Department ([id number]) 02/06/20 REG BOWERS (ARNOLD) MICHPWS During your [...] Date Reviewed: 11/20/2019 Reviewed by: Dinorah Milligan Utilities Equipment Repairer - Fully Assessed Reason for Visit: Results [95] Primary Visit Diagnosis:Elevated liver enzymes [R74.8] Other Visit Diagnoses:Essential hypertension [I10] Type 2 diabetes mellitus without complication, without long-term current use of insulin (HCC) [E11.9] Order(s):HGB A1C [PEYKG9R] Order #: [id number] FUTURE COMP METABOLIC PANEL [SQCMP] Order #: [id number] FUTURE ALBUMIN/CREAT RATIO RND UR [SQUACR] Order #: [id number] FUTU RE Prescriptions as of 02/06/2020 Sig: [...] Mitochondrial Ab Pnl Negative Negative Normal 0 [facility] (48815) Comment: Result Comment: Normal range : negative at a 1:20 serum dilution. Performed By: #### DEWAYNE, ALK P ####[facility] [place] [address] [phone] alkaline phosphatase on 2020-02-02 ALP [Catalytic activity/Vol] 142 34-123 U/L High 0 02-02-2020 [facility] (04168) Comment: Performed By: #### DEWAYNE, ALK P ####[facility] [address] [place], [place] [phone] us abd spleen -nb o n 2020-01-26 US ABD SPLEEN * * *Final Report* * * Normal [facility] - DATE OF EXAM: Jan 26 2020 7:39AM [place] ([id number]) WRU 1232 - US ABD SPLEEN -NB [...] dilation. No splenomegaly or focal splenic mass. User Support Analyst: YOSSI Transcribe Date/Time: Jan 26 2020 7:46A Dictated by : GLORIA BROWN MD This examination was interpreted and the report reviewed and electronically signed by: GLORIA BROWN MD on Jan 26 2020 7:48AM EST [id number] us abd right upper quadrant on 2020-01-26 US ABD RIGHT * * *Final Report* * * Normal 01-14 [facility] UPPER QUADRANT DATE OF EXAM: Jan 26 2020 7:39AM [place] ([id number]) WRU 1032 - US ABD RIGHT UPPER [...] dilation. No splenomegaly or focal splenic mass. User Support Analyst: YOSSI Transcribe Date/Time: Jan 26 2020 7:46A Dictated by : GLORIA BROWN MD This examination was interpreted and the report reviewed and electronically signed by: GLORIA BROWN MD on Jan 26 2020 7:48AM EST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 09-19-2020 - [facility] 09-19-2020 ([id number]) INFLUENZA (#1) INFLUENZA (#1) 2020 - [facility] 07-17-2020 ([id number]) DIABETIC FOOT EXAM DIABETIC FOOT EXAM 04-19-2020 - [facility] 04-19-2020 ([id number]) HPV TESTING HPV TESTING 07-11-2018 - [facility] 07-11-2018 ([id number]) COLONOSCOPY COLONOSCOPY 03-07-2018 - [facility] 03-07-2018 ([id number]) COLORECTAL CANCER COLORECTAL CANCER 03-07-2018 [facility] inic SCREENING,SEE MODIFIER SCREENING,SEE MODIFIER (3 [phone]) DILATED RETINAL EXAM DILATED RETINAL EXAM 11-12-2017 - [facility] 11-12-2017 ([id number]) SHINGRIX VACCINE (1 of SHINGRIX VACCINE (1 of 2010 - [facility] 2) 2) 2010 (54554) DTAP,TDAP,TD (1 - Tdap) DTAP,TDAP,TD (1 - Tdap) 1979 - [facility] 1979 (31920) BP CONTROLLED (<130/80) BP CONTROLLED (<130/80) 1978 - [facility] 1978 (66754) HEPATITIS C SCREENING HEPATITIS C SCREENING 1978 - [facility] 1978 (00604) HIV SCREENING HIV SCREENING 1978 - [facility] 1978 (32262) no information [facility] (57055) Immunizations Vaccine Notes Status Date Location Influenza Vaccine, influenza virus (completed) 08-03-2013 - [facility] Split-Non Spec vaccine, unspecified 08-03-2013 (4419 5) formulation Influenza Seasonal influenza, injectable, (completed) 08-24-2019 - [facility] Inj Quadrivalent Age quadrivalent, contains 08-24-2019 (29583) 3+ preservative Influenza Seasonal influenza, injectable, (completed) 10-11-2018 - [facility] Inj Quadrivalent Age quadrivalent, contains 10-11-2018 (15784) 3+ preservative Influenza Seasonal influenza, injectable, (completed) 10-25-2015 - [facility] Inj Quadrivalent Age quadrivalent, contains 10-25-2015 (20759) 3+ preservative Influenza Seasonal influenza, seasonal, (completed) 07-31-2014 [facility] Inj Age 3+ injectable 07-31-2014 (93763) Pneumococcal-13 Vac pneumococcal conjugate (completed) 09-06-2014 - [facility] Conjugate vaccine, 13 valent 09-06-2014 (02001) [facility]neumovax pneumococcal ([facility]) [facility], 03-12-2015 (441 95) 23 valent Influenza Recombinant Seasonal, trivalent, (completed) 08-31-2016 - [facility] Seasonal Inj PresFree recombinant, injectable 08-31-20 16 (43436) influenza vaccine, preservative free Payers Payer Name Policy Number Location EDDIE LEGER O [id number] [facility] ([id number]) [employer] MEDICARE [id number] [facility] ([phone]) The following information is from the original human readable contentNo Payer Records Found Social History Type Social History Date Location Description Tobacco smoking status Current every day smoker 04-19-2020 - [facility] NHIS 04-19-2020 (32216) History of tobacco use Cigarette Smoker [facility] ([id number]) Cigarettes smoked 04-19-2020 - [facility] ic current (pack per day) 04-19-2020 (68506) - Reported Tobacco use and Never used 04-19-2020 - [facility] exposure 04-19-2020 (24767) Alcohol intake Current non-drinker of 04-19-2020 - [facility] alcohol (finding) 04-19-2020 (97129) Tobacco Comment 10 cigarettes per day 04-19-2019 - [facility] 04-19-2019 (95280) Alcohol Comment 2 drinks/month 05-25-2014 - [facility] 05-25-2014 (06909) Sex Assigned At Not on file [facility] ([id number]) The following information is from the original [...] Contact Closed Diagnoses Muscle cramps Carly Rogers [address] [place], [place] [address] Phone: Additional Source Comments FOR RECORDS PERTAINING [...] BE BASED ON THE PRIMARY CLINICAL RECORDS. [facility] provides no warranty or guarantee of the accuracy or completeness of information in this document. UNRECOGNIZED CONTENT PROVIDED BELOW FOR UNRECOGNIZED SECTION INFORMATION SOURCE DATE CREATED AUTHOR AUTHOR'S COREYDOREENO N 05/12/2018 [facility] DATE CREATED AUTHOR AUTHOR'S ORGANIZATIO N 08/20/2020 [facility] UNRECOGNIZED CONTENT PROVIDED BELOW FOR UNRECOGNIZED SECTION Source Comments In the event this information is protected by the Federal Confidentiality of Alcohol and Drug Abuse Patient Records regulations: The Federal rules restrict any use of the information to criminally investigate or prosecute any alcohol or drug abuse patient.[facility] the event this information is protected by the Federal Confidentiality of Alcohol and Drug Abuse Patient Records regulations: The Federal rules restrict any use of the information to criminally investigate or prosecute any alcohol or drug abuse patient.[facility] the event this information is protected by the Federal Confidentiality of Alcohol and Drug Abuse Patient Records regulations: The Federal rules restrict any use of the information to criminally investigate or prosecute any alcohol or drug abuse patient.[facility] the event this information is protected by the Federal Confidentiality of Alcohol and Drug Abuse Patient Records regulations: The Federal rules restrict any use of the information to criminally investigate or prosecute any alcohol or drug abuse patient.[facility] the event this information is protected by the Federal Confidentiality of Alcohol and Drug Abuse Patient Records regulations: The Federal rules restrict any use of the information to criminally investigate or prosecute any alcohol or drug abuse patient.[facility] UNRECOGNIZED CONTENT PROVIDED BELOW FOR UNRECOGNIZED [...]
--- OUTSIDE RECORDS SUMMARY | 2020-08-28 13:14 | XMS RPT_ITS | CCD ---
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 hypertension - ICD9: [...] Histories in dependently gathered by the clinical other sales support worker and the remaining scr ibed note accurately [...] QUADRIVALENT AGE 3 YRS PLUS + IM [[id number]] Order #: [id number] losartan (COZAAR) 50 mg tabletTake 1 tablet [...] Provider Location 06-25-2020 - Documentation External Provider [facility] 06-25-2020 procedure 12-21-2016 - Emergency department Pain in right INC GEMS NO Facili ty:[facility] 12-21-2016 patient visit hip REFERRING DR [facility] 07-24-2020 - Letter encounter Carly [facility] 07-24-2020 [facility] 07-02-2020 - Patient encounter External Provider [facility] 07-02-2020 procedure 06-25-2020 Patient encounter External Provider Rafia [facility] procedure 08-20-2020 - Refill Cramp Carly [facility] icine 08-20-2020 [facility] Comment: Refill Request 07-30-2020 - 07-30-2020 Refill Cough Carly Manuel [facility] Comment: Refill Request 07-02-2020 Results Only External Provider External-N [facility] Procedures Procedure Name Date Provider Location EXTERNAL IMAGING 07-02-[address] [facility] [address] [facility][id number][facility] Mammography 09-19-2019 - 09-19-2019 [facility] ([id number]) Colonoscopy 03-07-2013 - 03-07-2013 [facility] ([id number]) Plan of Treatment Plan Description Date Location PAP TESTING PAP TESTING 09-19-2024 - [facility] 09-19-2024 ([id number]) ANNUAL PCP TEAM CHRONIC ANNUAL PCP TEAM CHRONIC 04-19-2021 - [facility] DISEASE VISIT DISEASE VISIT 04-19-2021 ([id number]) URINE ALBUMIN:CREATININE URINE ALBUMIN:CREATININE 04-16-2021 - [facility] RATIO RATIO 04-16-2021 ([id number]) LDL CHOLESTEROL LDL CHOLESTEROL 12-16-2020 - [facility] 12-16-2020 ([id number]) HBA1C HBA1C 10-16-2020 - [facility] 10-16-2020 ([id number]) MAMMOGRAM MAMMOGRAM 09-19-2020 - [facility] 09-19-2020 ([id number]) INFLUENZA (#1) INFLUENZA (#1) 2020 - [facility] 07-17-2020 ([id number]) DIABETIC FOOT EXAM DIABETIC FOOT EXAM 04-19-2020 - [facility] 04-19-2020 ([id number]) HPV TESTING HPV TESTING 07-11-2018 - [facility] 07-11-2018 ([id number]) COLONOSCOPY COLONOSCOPY 03-07-2018 - [facility] 03-07-2018 ([id number]) COLORECTAL CANCER COLORECTAL CANCER 03-07-[address] [facility] inic SCREENING,SEE MODIFIER SCREENING,SEE MODIFIER ([phone]) DILATED RETINAL EXAM DILATED RETINAL EXAM 11-12-2017 - [facility] 11-12-2017 ([id number]) SHINGRIX VACCINE (1 of SHINGRIX VACCINE (1 of 2010 - [facility] 2) 2) 2010 (97286) DTAP,TDAP,TD (1 - Tdap) DTAP,TDAP,TD (1 - Tdap) 1979 - [facility] 1979 (67382) BP CONTROLLED (<130/80) BP CONTROLLED (<130/80) 1978 - [facility] 1978 (14257) HEPATITIS C SCREENING HEPATITIS C SCREENING 1978 - [facility] 1978 (34706) HIV SCREENING HIV SCREENING 1978 - [facility] 1978 (11554) no information [facility] (43786) Immunizations Vaccine Notes Status Date Location Influenza Vaccine, influenza virus (completed) 08-03-2013 - [facility] Split-Non Spec vaccine, unspecified 08-03-2013 (4419 5) formulation Influenza Seasonal influenza, injectable, (completed) 08-24-2019 - [facility] Inj Quadrivalent Age quadrivalent, contains 08-24-2019 (46066) 3+ preservative Influenza Seasonal influenza, injectable, (completed) 10-11-2018 - [facility] Inj Quadrivalent Age quadrivalent, contains 10-11-2018 (26236) 3+ preservative Influenza Seasonal influenza, injectable, (completed) 10-25-2015 - [facility] Inj Quadrivalent Age quadrivalent, contains 10-25-2015 (98156) 3+ preservative Influenza Seasonal influenza, seasonal, (completed) 07-31-2014 [facility] Inj Age 3+ injectable 07-31-2014 (98780) Pneumococcal-13 Vac pneumococcal conjugate (completed) 09-06-2014 - [facility] Conjugate vaccine, 13 valent 09-06-2014 (76574) [facility]neumov[facility] pneum[facility] ([facility]) [facility], 03-12-2015 (441 95) 23 valent Influenza Recombinant Seasonal, trivalent, (completed) 08-31-2016 - [facility] Seasonal Inj PresFree recombinant, injectable 08-31-20 16 (56446) influenza vaccine, preservative free Payers Payer Name Policy Number Location EDDIE LEGER O [id number] [facility] ([id number]) [employer] MEDICARE [id number] [facility] (44 195) The following information is from the original human readable contentNo Payer Records Found Social History Type Social History Date Location Description Tobacco smoking status Current every day smoker 04-19-2020 - [facility] NHIS 04-19-2020 (76800) History of tobacco use Cigarette Smoker [facility] ([id number]) Cigarettes smoked 04-19-2020 - [facility] ic current (pack per day) 04-19-2020 (95062) - Reported Tobacco use and Never used 04-19-2020 - [facility] exposure 04-19-2020 (30233) Alcohol intake Current non-drinker of 04-19-2020 - [facility] alcohol (finding) 04-19-2020 (94065) Tobacco Comment 10 cigarettes per day 04-19-2019 - [facility] 04-19-2019 (45681) Alcohol Comment 2 drinks/month 05-25-2014 - [facility] 05-25-2014 (35422) Sex Assigned At Not on file [facility] ([id number]) The following information is from the original [...] Contact Closed Diagnoses Muscle cramps Carly Rogers [address] [place], [place] [address] Phone: Additional Source Comments FOR RECORDS PERTAINING [...] BASED ON THE PRIMARY CLINICAL RECORDS. [facility] provides no warranty or guarantee of the accuracy or completeness of information in this document. UNRECOGNIZED CONTENT PROVIDED BELOW FOR UNRECOGNIZED SECTION INFORMATION SOURCE DATE CREATED AUTHOR AUTHOR'S COREYDOREENO N 05/12/2018 [facility] DATE CREATED AUTHOR AUTHOR'S ORGANIZATIO N 08/20/2020 [facility] UNRECOGNIZED CONTENT PROVIDED BELOW FOR UNRECOGNIZED SECTION Source Comments In the event this information is protected by the Federal Confidentiality of Alcohol and Drug Abuse Patient Records regulations: The Federal rules restrict any use of the information to criminally investigate or prosecute any alcohol or drug abuse patient.[facility] the event this information is protected by the Federal Confidentiality of Alcohol and Drug Abuse Patient Records regulations: The Federal rules restrict any use of the information to criminally investigate or prosecute any alcohol or drug abuse patient.[facility] the event this information is protected by the Federal Confidentiality of Alcohol and Drug Abuse Patient Records regulations: The Federal rules restrict any use of the information to criminally investigate or prosecute any alcohol or drug abuse patient.[facility] the event this information is protected by the Federal Confidentiality of Alcohol and Drug Abuse Patient Records regulations: The Federal rules restrict any use of the information to criminally investigate or prosecute any alcohol or drug abuse patient.[facility] the event this information is protected by the Federal Confidentiality of Alcohol and Drug Abuse Patient Records regulations: The Federal rules restrict any use of the information to criminally investigate or prosecute any alcohol or drug abuse patient.[facility] UNRECOGNIZED CONTENT PROVIDED BELOW FOR [...]
== END 2020-04-05 15:05 | disposition home health service (06) | DRG 571 ==
LOC: ED 16:48 → MS3 17:12
PROVIDERS: Surgery; Admitting Provider Internal Medicine; Emergency Provider Emergency Medicine; PCP Family Medicine; Visit Provider Internal Medicine
PROC: 0J9L0ZX Drainage of Right Upper Leg Subcutaneous Tissue and Fascia, Open Approach, Diagnostic (ICD-10-PCS; principal; 2020-04-03 09:40)
DX: L02.415 Cutaneous abscess of right lower limb (principal); I44.2 Atrioventricular block, complete; Z68.41 Body mass index [BMI] 40.0-44.9, adult; L03.115 Cellulitis of right lower limb; B95.2 Enterococcus as the cause of diseases classified elsewhere; I10 Essential (primary) hypertension; E78.5 Hyperlipidemia, unspecified; F32.9 Major depressive disorder, single episode, unspecified; F41.9 Anxiety disorder, unspecified; F17.210 Nicotine dependence, cigarettes, uncomplicated; E11.65 Type 2 diabetes mellitus with hyperglycemia; G47.30 Sleep apnea, unspecified; E66.01 Morbid (severe) obesity due to excess calories; Z95.0 Presence of cardiac pacemaker; Z79.899 Other long term (current) drug therapy
CPT/HCPCS: 36415; 80048; 82962; 83036; 84443; 85025; 85027; 86140; 87070; 87075; 87077; 87102; 87176; 87186; 87205; 87206; 87635; 87640; 87641; 88304; 88305; 93005; 97802; 99251; 99284; 99406; G2023; J7030; J7050; A4216; G0463; J2405; U0002

== ENCOUNTER 2020-04-06 11:51 | Emergency (ER) | payer MEDICARE, SELFPAY ==
[2020-04-03 08:13] VITALS: BMI 41.1
[2020-04-06 11:52] VITALS: BP 129/68; PULSE 97; RESP 17; TEMP 36.9; O2SAT 100; BMI 43.2
--- NOTE | 2020-04-06 11:57 | ED.VIS.GEN ---
History of Present Illness Chief Complaint: Wound Check Informant: Patient Onset: Today Context: Sudden Onset Timing: Continuous Quality: Air leak Location: Right groin Current Severity: - - Not applicable Maximum Severity: - - Not applicable Worsened by: Not applicable Relieved by: Nothing Associated Symptoms: None Narrative: Patient is a 59-year-old diabetic who had surgery on Thursday. She had a diabetic groin abscess that was treated by I&D and wound VAC. Surgeon was Dr. Wayne davenport. She presents because the wound VAC developed a leak. She denies fever, chills night sweats. She states the erythema is unchanged. She has no urologic symptoms. She has no GI symptoms. She denies symptoms of hyperglycemia. Prior similar symptoms: No Recent Illness/Hospitalization: Yes - Past Medical History (1) Abscess of right thigh Status: Acute (2) Anxiety and depression Status: Chronic (3) Diabetes mellitus type 2 in obese Status: Chronic (4) Essential (primary) hypertension Status: Chronic (5) HLD (hyperlipidemia) Status: Chronic (6) History of permanent cardiac pacemaker placement Status: Chronic (7) Nicotine dependence Status: Chronic Past Medical History - Allergies and Home Meds Allergies/Adverse Reactions: Allergies enalapril Adverse Reaction (Verified 04/06/20 11:52) COUGH lisinopril Adverse Reaction (Verified 04/06/20 11:52) COUGH Primary Care Physician: Lamberto Rogers MD [Primary Care Provider] - Surgical History: total hip arthroplasty - bilat, - - lumbar sacral trauma due to fall on a fiberglass boat, bilateral hip replacement. Lives: Alone Smoking Status: Current every day smoker Alcohol: None Drugs: None - Family History Maternal Family History: Family History (Last Reviewed 10/05/19 @ 13:42 by Syl Fischer) Father Colon cancer Mother Diabetes Heart disease Family History: Reports: - - diabeties,heart disease Paternal Family History: Family History (Last Reviewed 10/05/19 @ 13:42 by Syl Fischer) Father Colon cancer Mother Diabetes Heart disease Family History: Reports: - - colon cancer at age 55-58 Review of Systems General: Denies: Chills, Fever, Malaise, Subjective, Sweats Eyes: Denies: Visual changes - bilaterally, Blurred Vision - bilaterally ENT: Denies: Rhinorrhea, Sore throat Cardiovascular: Denies: Chest pain, Palpitations Respiratory: Denies: Dyspnea, Cough, Dyspnea on exertion Gastrointestinal: Denies: Abdominal pain, Nausea, Vomiting Genitourinary: Denies: Dysuria, Hematuria, Frequency Musculoskeletal: Denies: Myalgias, Arthralgias, Neck pain, Back pain, Swelling, Extremity Pain, -, - Skin: Reports: Rash, Abscess Endocrine: Denies: Polyuria, Polydipsia Hematologic: Denies: Easy bruising, Easy bleeding Physical Exam Vital Signs/Narrative: Vital Signs Temp Pulse Resp BP Pulse Ox 04/06/20 11:52 98.5 F 97 17 129/68 H 100 Inital Vital Signs reviewed: Yes General: Well nourished, Well developed, Obese, No Acute Distress Head: Normocephalic, Atraumatic Eyes: Perrl, EOMI. Negative for: Pale conjunctiva, Scleral icterus Neck: Supple, Nontender Cardiovascular: Regular rate, Regular rhythm, No murmurs Respiratory: No distress Abdomen: Soft, Nontender, Nondistended Rectal: Deferred Extremities: - - Wound VAC noted. There is a leak. There is slight erythema wound edges. There is no fluctuance. There is no neurovascular compromise. Skin: Normal color, No Trauma, Rash. Negative for: No rash, Cyanosis, Diaphoresis, Jaundice Neurological: Alert, Oriented x3, Cranial nerves II-XII grossly intact, Normal Strength, Normal Sensation Psychological: Depressed Diagnostic/Tx/Re-eval - Medical Decision Making Patient presents for evaluation of wound VAC. Patient has a leak. Nurse states she would change dressing. Plan is to discharge to home. ED Disposition - Plan for ED Patient: Disposition: Home or Assisted Living Diagnosis: Abscess of groin, right, Wound check, abscess Instructions: ED Wound Check Post Op Pain Referrals: Lamberto Rogers MD [Primary Care Provider] - Wayne Olmedo MD [STAFF PHYSICIAN] - Keep [place] appointment
--- NOTE | 2020-04-06 12:09 | ED.RN ---
Wound vac dressing to right thigh reenforced with obsite and now wound vac holding pressure. Patient stood at bedside and no air leak noted.
[2020-04-06 12:11] VITALS: PULSE 95; RESP 17; O2SAT 100
--- OUTSIDE RECORDS SUMMARY | 2020-08-28 16:05 | XMS RPT_ITS | CCD ---
:1960 External Reference #:[id number] Author Organization [employer] Care Team Providers Name Role Phone ChatStat Unavailable Unavailable NO REFERRING DR Mcdermott Unavailable DENISE SEGURA Unavailable Unavailable Carly Rogers Primary Care Provider Allergies Reported Allergen Reaction(s) Severity Date of Onset Location enalapril Translations: [ Cough 01-17-2013 - [facility] ENALAPRIL] System Reposito ry Medications Medication Name Sig Date Prescriber Location Acetaminophen acetaminophen (TYLENOL 01-29-2017 [facility] EXTRA STRENGTH) [address] (4419 5) tablet Indications: Chronic pain of left knee , Pain in right hip Take 1 tablet by mouth every 6 hours as needed for Pain. 120 tablet 2 01/29/2017 Active Comment: Take 1 tablet by mouth every 6 hours as needed for Pain. Amitriptyline amitriptyline (ELAVIL) 06-19-2020 Carly Manuel [facility] 10 mg tablet (28863) Indications: Depression, major, recurrent, mild (HCC) Take 1 tablet by mouth daily at bedtime. 30 tablet 5 06/19/2020 Active Comment: Take 1 tablet by mouth daily at bedtime. amLODIPine amLODIPine (NORVASC) 03-26-2020 Carly Manuel [facility] mg tablet Indications: (4419 5) Essential hypertension Take 1 tablet by mouth once daily. 30 tablet 03/26/2020 Active Comment: Take 1 tablet by mouth once daily. atorvastatin atorvastatin (LIPITOR) 05-21-2020 Carly Manuel [facility] 10 mg tablet (90422) Indications: Mixed hyperlipidemia Take 1 tablet by mouth once daily. 30 tablet 11 05/21/2020 Active Comment: Take 1 tablet by mouth once daily. benzonatate benzonatate (TESSALON 07-30-2020 Carly Manuel [facility] PERLMAMI) 100 mg capsule (4419 5) Indications: Cough Take 1 capsule by mouth three times daily as needed for Cough. 30 capsule 2 07/30/2020 Active benzonatate (TESSALON 03-23-2020 - Carly Manuel [facility]) 100 mg capsule 07-30-2020 (54017) Indications: Cough Take 1 capsule by mouth three times daily as needed for Cough. 30 capsule 2 03/23/2020 07/30/2020 Discontinued Comment: Take 1 capsule by mouth thre e times daily as needed for Cough. Cephalexin cephALEXin (KEFLEX) 500 mg 08-25-2019 [facility] Provider [facility] (30873) capsule EVERY 6 HOURS 0 08/25/2019 Active Comment: EVERY 6 HOURS COMPOUNDED COMPOUNDED 09-16-2019 Carly Manuel [facility] PRESCRIPTION PRESCRIPTION ResMed (34408) AirCurve 10 S VPAP machine with heated humidity and heated tubing. Pressure set to 22/16 cm H2O. ticckle. 0 09/16/2019 Active COMPOUNDED PRESCRIPTION [employer] 09-16-2019 Carly [facility] (78270) AirCurve 10 S VPAP machine with heated humidity and heated tubing. Pressure set to 22/16 cm H2O. ticckle. 0 09/16/2019 Active COMPOUNDED PRESCRIPTION [employer] 09-16-2019 Carly [facility] (22252) AirCurve 10 S VPAP machine with heated humidity and heated tubing. Pressure set to 22/16 cm H2O. ticckle. 0 09/16/2019 Active COMPOUNDED PRESCRIPTION [employer] 09-16-2019 Carly [facility] (95685) AirCurve 10 S VPAP machine with heated humidity and heated tubing. Pressure set to 22/16 cm H2O. ticckle. 0 09/16/2019 Active COMPOUNDED PRESCRIPTION [employer] 09-16-2019 Carly [facility] (92540) AirCurve 10 S VPAP machine with heated humidity and heated tubing. Pressure set to 22/16 cm H2O. ticckle. 0 09/16/2019 Active Comment: ResMed AirCurve 10 S VPAP ma elsa with heated humidity and heated tubing. Pressure set to 22/16 cm H2O . ticckle. cyclobenzaprine cyclobenzaprine 08-24-2019 - Carly Manuel [place] (FLEXERIL) 10 mg 08-20-2020 [facility] (441 95) tablet Indications: Muscle cramps Take 1 tablet by mouth three times daily as needed. 30 tablet 5 08/20/2020 Active Comment: Take 1 tablet by mouth three times daily as needed. dulaglutide dulaglutide (TRULICITY) 04-19-2020 Carly Manuel [facility] 0.75 mg/0.5 mL pnij (05504) Indications: Type 2 diabetes mellitus without complication, without long-term current use of insulin (HCC) Inject 0.75 mg subcutaneously one time a week. Inject dose once per week. Discard Pen After 4 Pen 5 04/19/2020 Active Comment: Inject 0.75 mg subcutaneousl y one time a week. Inject dose once per week. Discard Pen After telmisartan telmisartan (MICARDIS) 05-23-2020 Carly Manuel [facility] 40 mg tablet Take 1 (29623) tablet by mouth once daily. 30 tablet 5 05/23/2020 Active Comment: Take 1 tablet by mouth once daily. Problems Active Problems Category Problem Name Status Date Location Cardiac dysrhythmias Sick sinus syndrome Active 08-24-2019 - [facility] (68097) Conduction disorders Cardiac pacemaker in Active 08-24-2019 - [facility] situ (37247) Diabetes mellitus Type 2 diabetes Active 03-29-2013 - [place] [facility] without complication mellitus without [facility] complications (31853) Disorders of lipid Hyperlipidemia, Active 03-29-2013 - [facility] metabolism unspecified Health System (94984) Essential hypertension Essential (primary) Active 03-29-2013 - [facility] hypertension [facility] (60462) Mood disorders Bipolar disorder, Active 12-21-2016 - [place] [facility] unspecified [facility] (96776) Nutritional deficiencies Vitamin D deficiency Active [facility] (83008) Osteoarthritis Unilateral primary Active 09-06-2015 - [place] [facility] osteoarthritis, right Health System hip (75157) Other connective tissue 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-2016 - [facility] disease artificial hip joint Health System (68327) Other connective tissue Cramp Active [facility] disease (44837) Other inflammatory Rosacea Active 03-28-2013 - [facility] condition of skin (74994) Other lower respiratory Cough Active [facility] disease (10622) Other nervous system Other chronic pain Active 12-21-2016 - [facility] (23864) Other nervous system Sural neuropathy Active 06-02-2015 - [facility] disorders (94850) Other nutritional; Morbid obesity Active 09-19-2019 - [facility] endocrine; and metabolic (44 195) disorders Other nutritional; Obesity Active 03-29-2013 - [facility] endocrine; and metabolic (44 195) disorders Residual codes; Obstructive sleep apnea Active 08-24-2019 - [facility] unclassified syndrome (89249) Schizophrenia and other Schizophrenia, Active 12-21-2016 - [facility] psychotic disorders unspecified Health S ystem (58673) Past or Other Problems Category Problem Name Status Date Location Other inflammatory Seborrheic Completed 03-28-2013 - [facility] condition of skin dermatitis (50860) Other non-traumatic Pain in right hip Completed 12-21-2016 - [facility] joint disorders Health Syste m (75022) Other screening for Magnetic resonance Completed 07-09-2017 - [facility] suspected conditions imaging of brain (44 195) (not mental disorders abnormal or infectious disease) Results Result Name Value Range Unit Interpretation Flag Date Location obsolete on 2020-08 OBSOLETE Refill (FAMPWS) Normal 08-20-2020 [facility] ABE STEVENSON ([id number]) 1960 [facility] Time Provider Department (29846) 08/20/20 CARLY ROGERS During your visit today, [...] Normal 07-30-2020 Jose Rafael [facility] ABE Auguste ([id number]) 1960 [facility] Date Time Provider Department (93543) 07/30/20 CARLY ROGERS FAMPWS During your visit [...] 2020-07-24 [facility]CO Letter Text Normal 07-24-2020 [facility] (33529) obsolete on 2020-06 OBSOLETE Refill (FAMPWS) Normal 06-19-[address] [facility] ABE STEVENSON ([id number]) 1960 [facility] Date Time Provider Department (54271) 06/19/20 CARLY ROGERS During your visit today, [...] on 2020-06-15 CNPN Telephone (FAMPWS) Normal 06-15-[address] [facility] ABE STEVENSON ([id number]) 1960 Kadeem BOURNE [place] Date Time Provider Department (82337) 06/15/20 CARLY ROGERS During your visit today, we recorded the following informati on about you: Macie Lloyd MA 06/15/2020 8:42 AM Signed Received forms for pt from [facility], requesting verification of disability. Please review forms, complete, then fax back to [phone]. Macie Rogers MD 06/18/2020 5:11 PM Signed [...] (FAMPWS) Normal 06-11-2020 [facility] ABE STEVENSON ([id number]) 1960 F [place] Date Time Provider Department (53263) 06/11/20 CARLY ROGERS During your visit today, we recorded the following informati on about you: Bea Santana RN 06/11/2020 2:44 PM Signed Archana from [facility] tayla led, verified pt by [...] on 2020-05-23 CNPN Telephone (FAMPWS) Normal 05-23-2020 [facility] ABE STEVENSON ([id number]) 1960 [facility] Date Time Provider Department (67549) 05/23/20 CARLY ROGERS During your visit today, we recorded the following informati on about you: Carley Whiting PACO 05/23/2020 2:50 PM Signed today 162/88 pulse 88 slight headache in the morning. Headache relieved with Tylen ol. Taking amlodipine every morning . 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 Macie Lloyd MA Allergies As of [...] (FAMPWS) Normal 05-21-[address] [facility] GRAHAMABE FALK ([id number]) 1960 [facility] Date Time Provider Department (40601) 05/21/20 CARLY ROGERS During your visit today, [...] on 2020-05-09 CNPN Telephone (FAMWS) Normal 05-09-[address] [facility] ABE STEVENSON ([id number]) 1960 T[place] Date Time Provider Department (79673) 05/09/20 CARLY ROGERS During your visit today, we recorded the following informati on about you: Renate Denis RN 05/09/2020 2:11 PM Signed Nurse Kassandra calls from [facility]. Did woun d care on [...] review and advise. Please call Kassandra at [phone] with any new orders. DORINA Tracey MD [...] CNPN Telephone (FAMPWS) Normal 05-04-[address] [facility] ABE STEVENSON ([id number]) 1960 [facility] Date Time Provider Department (74152) 05/04/20 CARLY ROGERS During your visit today, [...] will be checked again on Thursday at [facility]. Adriana Haider Ma Allergies As of [...] 05/04/20 progress on 2020-04 PROGRESS HNO ID: [id number] Normal 04-19-2020 [facility] Author: Carly Rogers [place] ([id number]) Service: ? Author Type: Physician Type: Progress [...] setting and agrees. Pt currently residing at [facility]. Has been there since November. Hoping to [...] care of her supplies and [facility] [...] history of premature coronary artery disease mother PA at 50 - History of colon polyps [...] Onset - Coronary Artery Disease Mother 50 PA - Diabetes Mother 40 age 68 - [...] capsule EVERY 6 HOURS - COMPOUNDED PRESCRIPTION W[employer] AirCurve 10 S VPAP machine with heated humidity and heated tubing. Pressure set to 22/16 cm H2O. Bergey's. - atorvastatin (LIPITOR) 10 mg tablet Take [...] AGE 65 Completed INFLUENZA Completed Data reviewed [facility] Appointment on 04/16/2020 Component Date Value - [...] Histories in dependently gathered by the clinical is support analyst and the remaining scr ibed note accurately describes my personal service to the patient. Carly Rogers MD The documentation for this note was completed by Macie cruz MA acting as scribe for Carly Rogers MD. April 19, 2020 9:37 AM. Macie shortov on 2020-04-19 CNOV Office Visit (FAMPWS) Normal 04-19-[address] [place] [address] [facility] ABE STEVENSON ([id number]) 1960 [facility] Date Time Provider Department (39299) 04/19/20 9:40 AM CARLY ROGERS During your [...] setting and agrees. Pt currently residing at [facility]. Has been there since November. Hoping to [...] Center takes care of her supplies and [facility] takes care of the wound. Has [...] history of premature coronary artery disease mother PA at 50 - History of colon polyps 03/07/2013 - HTN (hypertension) - Hyperlipemia - Obesity - Rosacea - Seborrheic dermatitis - Vitamin D deficiency Previous Surgical History PAST SURGICAL HISTORY Procedure Laterality Date - COLONOSCOPY AND POLYPECTOMY 03/07/13 repeat due 2018, tubular adenoma - PAST SURGICAL HISTORY OF cyst removed from uterus while - TOTAL HIP JOINT REPLACEMENT Left 02/2018 [facility] - TOTAL HIP JOINT REPLACEMENT Right 06/2018 [facility] Family History FAMILY HISTORY Problem Relation Age of Onset - Coronary Artery Disease Mother 50 PA - Diabetes Mother 40 age 68 - [...] capsule EVERY 6 HOURS - COMPOUNDED PRESCRIPTION Wyle[employer] AirCurve 10 S VPAP machine with heated humidity and heated tubing. Pressure set to 22/16 cm H 2O. ticckle. - atorvastatin (LIPITOR) 10 mg tablet Take [...] AGE 65 Completed INFLUENZA Completed Data reviewed [facility] Appointment on 04/16/2020 Component Date Value - [...] Histories in dependently gathered by the clinical is support analyst and the remaining scr ibed note accurately describes my personal service to the patient. Carly Rogers MD The documentation for this note was completed by Macie cruz MA acting as scribe for Carly Rogers MD. April 19, 2020 9:37 AM. Macie Lloyd MA Referring Provider: CARLY ROGERS [[id number]] Allergies As of Date: 04/19/2020 Noted Allergy [...] Pen AfterDisp: 4 PenRfl: 5 HGB A1C [DMSHX2G] Order #: [id number] FUTURE COMP METABOLIC PANEL [SQCMP] Order #: [id number] FUTURE LIPID PANEL BASIC [SQLIPB] Order #: [id number] FUTURE Prescriptions as of 04/19/2020 Sig: LANCETS [...] on 2020-04-17 CNPN Telephone (FAMPWS) Normal 04-17-[address] [facility] ABE STEVENSON ([id number]) 1960 [facility] Date Time Provider Department (09739) 04/17/20 [facility] During your visit today, we recorded the following informati on about you: Bea Santana RN 04/17/2020 3:39 PM Signed Leticia from [facility] called, verified pt by name and birthdate. Leticia states she met with pt and pt was not acting right. Pt reportedly wore her sunglasses for entire visit and was very withdrawn. Leticia states womens assisted staff told her that pt wears her [...] [Mass fraction] 171 mg/dL Normal [facility] (85965) Comment: Result Comment: eAG: (Estima jayna average glucose) is a calculated value from HgbA1c and is sales service representative of the average blood glucose level in the last 2-3 month period. Performed By: #### HBA1C, CM P ####[address] [phone] HbA1c (Bld) [Mass fraction] 7.6 4.3-5.6 % High [facility] (51703) Comment: Result Comment: [place] betes Association guidelines indicate that patients with HgbA1c in the range 5.7-6.4% are at increased risk for development of diabetes, and intervention by lifestyle modification may be beneficial. HgbA1c greater o r equal to 6.5% is considered diagnostic of diabetes. Performed By: #### HBA1C, CM P ####[place] [address] [place], [place] [phone] comp metabolic panel on 2020-04-16 Albumin [Mass/Vol] 4.1 3.9-4.9 g/dL Normal 04-16-2020 [facility] (63737) Comment: Performed By: #### HBA1C, CM P ####[address] [phone] ALP [Catalytic activity/Vol] 120 34-123 U/L Normal 0 04-16-2020 [facility] (28815) Comment: Performed By: #### HBA1C, CM P ####[facility], [place] [phone] ALT [Catalytic activity/Vol] 32 7-38 U/L Normal 0 04-16-2020 [facility] (06584) Comment: Performed By: #### HBA1C, CM P ####[place] [address] [address], [place] [phone] Anion gap [Moles/Vol] 16 9-18 mmol/L Normal 04-16-20 20 [facility] (43968) Comment: Performed By: #### HBA1C, CM P ####[place] [address] [address], [place] [phone] AST [Catalytic activity/Vol] 35 13-35 U/L Normal 0 04-16-2020 [facility] (90175) Comment: Performed By: #### HBA1C, CM P ####[place] [address] [address], [place] [phone] Bilirubin [Mass/Vol] 0.2 0.2-1.3 mg/dL Normal 0 [facility] (17514) Comment: Performed By: #### HBA1C, CM P ####[place] [address] [address], [place] [phone] Calcium [Mass/Vol] 10.6 8.5-10.2 mg/dL High 04-16-2020 [facility] (22359) Comment: Performed By: #### HBA1C, CM P ####[place] [address] [address], [place] [phone] Chloride [Moles/Vol] 105 97-105 mmol/L Normal 0 [facility] (93936) Comment: Performed By: #### HBA1C, CM P ####[place] [address] [address] [place], [place] [phone] CO2 [Moles/Vol] 21 22-30 mmol/L Low 04-16-2020 [facility] (09715) Comment: Performed By: #### HBA1C, CM P ####[facility] [address], [place] [phone] Creatinine [Mass/Vol] 0.79 0.58-0.96 mg/dL Normal 04-16-20 20 [facility] (37676) Comment: Performed By: #### HBA1C, CM P ####[facility] [address], [place] [phone] eGFR- Amer. >60 Normal 04-16-2020 [facility] (33529) Comment: Performed By: #### HBA1C, CM P ####[facility] [place] [address] [phone] GFR/1.73 sq M predicted >60 mL/min/{1.73_m2} Normal 04-16-2020 [facility] among non-blacks [facility] (81968) (S/P/Bld) [Vol rate/Area] Comment: Result Comment: eGFR [...] GFR. Performed By: #### HBA1C, CM P ####[facility] [address] [place], [place] [phone] Glucose [Mass/Vol] 138 74-99 mg/dL High 04-16-2020 [facility] (66010) Comment: Result Comment: The [place] Diabetes Association (ADA) provides guidance for cutoff [...] for diagnosis of diabetes. Reference: Standards of [facility] in Diabetes 2016, [place] Diabetes Association. Diabetes Care. 2016.39(Suppl 1). Performed By: #### HBA1C, CM P ####[place] [address] [address], [place] [phone] Potassium [Moles/Vol] 4.4 3.7-5.1 mmol/L Normal 04-16-20 [facility] (28176) Comment: Performed By: #### HBA1C, CM P ####[place] [address] [address], [place] [phone] Protein [Mass/Vol] 7.9 6.3-8.0 g/dL Normal 04-16-2020 [facility] (94742) Comment: Performed By: #### HBA1C, CM P ####[place] [address] [address], [place] [phone] Sodium [Moles/Vol] 142 136-144 mmol/L Normal 04-16-2020 [facility] (07709) Comment: Performed By: #### HBA1C, CM P ####[place] [address] [address], [place] [phone] Urea nitrogen [Mass/Vol] 13 7-21 mg/dL Normal 04-16 [facility] (82586) Comment: Performed By: #### HBA1C, CM P ####[place] [address] [address], [place] [phone] albumin/creat ratio on 2020-04-16 Albumin Urine Random 17.9 mg/L Normal 0 [facility] (02009) Comment: Performed By: #### UACR #### [place] [address] [place], [place] [phone] Albumin/Creat Ratio 12 <30 mg/g Normal 04-16-2020 [facility] (40128) Comment: Result Comment: Adult Male a nd [...] 3(1), 1-150. Performed By: #### UACR #### [facility] [place], [place] [phone] Creatinine,Urine,Ran 143.3 20-300 mg/dL Normal 0 [facility] (12561) Comment: Performed By: #### UACR #### [facility] [place], [place] [phone] cnpn on 2020-04-10 CNPN Telephone (FAMWS) Normal 04-10-[address] [facility] ABE STEVENSON ([id number]) 1960 [facility] Date Time Provider Department (09023) 04/10/20 [facility] During your visit today, we recorded the following informati on about you: Renate Velasco LPN 04/10/2020 11:56 AM Signed Dottie with [facility] calling with plan of care for patient. Please advise Dottie PH: [phone]. 1.. Nursing for 2 to 3 times [...] insulin (HCC) [E11.9] Order(s):HOME BLOOD GLUCOSE MONITOR [[id number]] Order #: [id number] Lancets lancetsTest blood sugar(s) 1 times daily. [...] 04/10/20 progress on 2020-03 PROGRESS HNO ID: [id number] Normal 04-06-2020 [facility] Author: Carly Rogers ([id number]) Service: ? Author Type: Physician Type: Progress Notes Filed: 04/06/2020 3:10 PM Note Text: Noted Carly Rogers MD PROGRESS HNO ID: [id number] Normal 04-06-2020 [facility] Author: Cathy Salazar MA ([id number]) Service: ? Author Type: Horse Riding Coach Or Instructor Type: Progress Notes Filed: 04/06/2020 3:10 PM Note Text: TRANSITION CARE MANAGEMENT (TCM) INITIAL CONTACT Horse Riding Coach Or Instructor Outreach Provider Action/FYI: Initial contact with patient post discharge, spoke to pedro lazaro Patient identified by name and . TRANSITION CARE MANAGEMENT INITIAL OUTREACH DOCUMENTATION: Date of Outreach: 04/06/2020 04/06/2020 Outreach Attempt 1: Contact Made - Date of Discharge 04/05/2020 04/05/2020 Some recent data might be hidden SUMMARY: -Pt discharged from [facility] on 04/05/20. -Admitted for: Abcess right medial [...] ? Yes Medical records from recent hospitalization: [facility] cnptoutreach on CNPTOUTREACH Patient Outreach (FAMPWS) Normal 0 04-06-[address] [facility] ABE STEVENSON ([id number]) 1960 [facility] Time Provider Department (46532) 04/06/20 CARLY ROGERSPWS During your visit today, we recorded the following informati on about you: Cathy Salazar MA, MA 04/06/2020 3:10 PM Signed TRANSITION CARE MANAGEMENT (TCM) INITIAL CONTACT Horse Riding Coach Or Instructor Outreach Provider Action/FYI: Initial contact with patient post discharge, spoke to pedro lazaro Patient identified by name and . TRANSITION CARE MANAGEMENT INITIAL OUTREACH DOCUMENTATION: Date of Outreach: 04/06/2020 04/06/2020 Outreach Attempt 1: Contact Made - Date of Discharge 04/05/2020 04/05/2020 Some recent data might be hidden SUMMARY: -Pt discharged from [facility] on 04/05/20. -Admitted for: Abcess right medial [...] Status:Closed by CARLY ROGERS MD [facility]) Normal 04-06-[address] [facility] ABE STEVENSON ([id number]) 1960 [place] Date Time Provider Department (47756) 04/06/20 [facility] During your visit today, we recorded the following informati on about you: Bea Santana RN 04/06/2020 10:34 AM Signed nurse Leticia from [facility] call ed, verified pt by [...] Ma - Fully Assessed Reason for Visit: usp care orders [Other] Prescriptions as of 04/06/2020 [...] on 2020-04-05 CNPN Telephone (FAMPWS) Normal 04-05-[address] [facility] ABE STEVENSON ([id number]) 1960 [facility] Date Time Provider Department (30738) 04/05/20 [facility] During your visit today, we recorded the following informati on about you: Ruby Swenson Pss 04/05/2020 12:44 PM Signed Patient is calling to inform doctor that she has been admitt ed to [facility] earlier this week for a Diabetic [...] see how she is doing with the [facility] also. MD Adriana Lance Ma 04/05/2020 [...] (FAMPWS) Normal 03-26-[address] [facility] ABE STEVENSON ([id number]) 1960 Formerly [facility] Date Time Provider Department ([id number]) 03/26/20 CARLY ROGERS [facility] During your visit [...] 03/27/20 progress on 2020-03 PROGRESS HNO ID: [id number] Normal 03-23-2020 [facility] Author: Carly Rogers [place] ([id number]) Service: ? Author Type: Physician Type: Progress [...] bitten by a spider and went to [facility] ER last year in June 12, 2019, [...] half ppd. Doing well; living in [facility], looking for apartment ; stress level good. Past medical history, appointments, medications, allergies nancy parisi. Previous Medical History PAST MEDICAL HISTORY Diagnosis Date - Arthritis, hip - Diabetes mellitus (HCC) 03/2012 - Family history of colon cancer Father 55 - Family history of premature coronary artery disease mother PA at 50 - History of colon polyps 03/07/2013 - HTN (hypertension) - Hyperlipemia - Obesity - Rosacea - Seborrheic dermatitis - Vitamin D deficiency Previous Surgical History PAST SURGICAL HISTORY Procedure Laterality Date - COLONOSCOPY AND POLYPECTOMY 03/07/13 repeat due 2017, tubular adenoma - PAST SURGICAL HISTORY OF cyst removed from uterus while - TOTAL HIP JOINT REPLACEMENT Left 02/2018 [facility] - TOTAL HIP JOINT REPLACEMENT Right 06/2018 [facility] Family History FAMILY HISTORY Problem Relation Age of Onset - Coronary Artery Disease Mother 50 PA - Diabetes Mother 40 age 68 - Colon Cancer Father 55 age 58 - Diabetes Sister 60 - Arthritis Sister - Osteoporosis Sister Patient Allergies ALLERGIES Allergen Reactions - Enalapril Cough Current Medications Current Outpatient Medications on File Prior to Visit Medication Sig - cephALEXin (KEFLEX) 500 mg capsule EVERY 6 HOURS - COMPOUNDED PRESCRIPTION WyleMed AirCurve 10 S VPAP machine with heated humidity and heated tubing. Pressure set to 22/16 cm H2O. Bergey's. - atorvastatin (LIPITOR) 10 mg tablet Take [...] Histories in dependently gathered by the clinical is support analyst and the remaining scr ibed note accurately describes my personal service to the patient. Carly Rogers MD The documentation for this note was completed by Adriana chris Ma acting as scribe for Carly Rogers MD. March 23, 2020 8:46 AM. Adriana Haider Ma obsolete on 2020-03 OBSOLETE Refill (FAMPWS) Normal 03-22-2020 Jose Rafael janneth [facility] ABE STEVENSON ([id number]) 1960 T[place] Date Time Provider Department ([id number]) 03/22/20 CARLY ROGERS During your visit today, [...] bitten by a spider and went to [facility] last year in June 12 2019, she [...] Date Reviewed: 11/20/2019 Reviewed by: Dinorah Milligan Safety Investigator - Fully Assessed Reason for Visit: Refill [...] HAIDER MA on 03/22/20 [facility]n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 [facility] Author: Carly Rogers [place] ([id number]) Service: ? Author Type: Physician Type: Progress [...] Cardio, Dr. Carrero. 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 2 year degree in [employer] design. 1 son Moved from [place] Used to swim daily EXAM: BP 130/80 [...] 65 Completed Data reviewed Hospital reports from [facility] 08/06/19-08/09/19 ASSESSMENT/PLAN: 1. Essential hypertension - ICD9: [...] Histories in dependently gathered by the clinical is support analyst and the remaining scr ibed note accurately describes my personal service to the patient Carly Rogers MD The documentation for this note was completed by Adriana chris Ma acting as scribe for Carly Rogers MD. August 24, 2019 9:43 AM . cnov on 2019-08-24 CNOV Office Visit (FAMPWS) Normal 08-24-20 19 [facility] ABE STEVENSON ([id number]) 1960 [facility] Date Time Provider Department ([id number]) 08/24/19 10:00 AM CARLY ROGERS During your visit today, we recorded the following informati on about you: Temperature Pulse Respiration Blood pressure 97.7 degrees 74/minute 18/minute 130/80 Weight 105.2 kg Carly Rogers MD 08/24/2019 11:27 AM Signed Chief Complaint Patient presents with: Hospital Follow Up Imm/Inj: Flu Vaccine HPI Abe Stevenson is a 58 year old female who presents here t [facility] for hospital follow up. Pt is not a TCM as she was scheduled outside of the 14 [facility] frame. Was unable to reach pt to reschedule sooner. Had a pacemaker placed, is following with Cardio, Dr. Carrero. Was admitted to the [facility] on 08/06/19 till 08/09/19 for dizziness and [...] history of premature coronary artery disease mother PA at 50 - History of colon polyps 03/07/2013 - HTN (hypertension) - Hyperlipemia - Obesity - Rosacea - Seborrheic dermatitis - Vitamin D deficiency Previous Surgical History PAST SURGICAL HISTORY Procedure Laterality Date - COLONOSCOPY AND POLYPECTOMY 03/07/13 repeat due 2017, tubular adenoma - PAST SURGICAL HISTORY OF cyst removed from uterus while - TOTAL HIP JOINT REPLACEMENT Left 02/2018 [facility] - TOTAL HIP JOINT REPLACEMENT Right 06/2018 [facility] Family History FAMILY HISTORY Problem Relation Age of Onset - Colon Cancer Father 55 age 58 - Coronary Artery Disease Mother 50 PA - Diabetes Mother 40 age 68 - [...] Not on file 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 2 year degree in [employer] design. 1 son Moved from [place] Used to swim daily EXAM: BP 130/80 [...] 65 Completed Data reviewed Hospital reports from [facility] 08/06/19-08/09/19 ASSESSMENT/PLAN: 1. Essential hypertension - ICD9: [...] Histories in dependently gathered by the clinical is support analyst and the remaining scr ibed note accurately [...] QUADRIVALENT AGE 3 YRS PLUS + IM [[id number]] Order #: [id number] losartan (COZAAR) 50 mg tabletTake 1 tablet [...] Provider Location 06-25-2020 - Documentation External Provider [facility] 06-25-2020 procedure 12-21-2016 - Emergency department Pain in right INC GEMS NO Facili ty:[facility]U 12-21-2016 patient visit hip REFERRING [facility] 07-24-2020 - Letter encounter Carly Rogers [facility] 07-24-2020 [facility] 07-02-2020 - Patient encounter External Provider [facility] 07-02-2020 procedure 06-25-2020 Patient encounter External Provider [facility] procedure 08-20-2020 - Refill Cramp Carly Manuel [facility] icine 08-20-2020 [facility] Comment: Refill Request 07-30-2020 - 07-30-2020 Refill Cough Carly Manuel [facility] Comment: Refill Request 07-02-2020 Results Only External Provider [facility] Procedures Procedure Name Date Provider Location EXTERNAL [facility]-02-[facility][id number][facility] Mammography 09-19-2019 - 09-19-2019 [facility] ([id number]) Colonoscopy 03-07-2013 - 03-07-2013 [facility] ([id number]) Plan of Treatment Plan Description Date Location PAP TESTING PAP TESTING 09-19-2024 - [facility] 09-19-2024 ([id number]) ANNUAL PCP TEAM CHRONIC ANNUAL PCP TEAM CHRONIC 04-19-2021 - [facility] DISEASE VISIT DISEASE VISIT 04-19-2021 ([id number]) URINE ALBUMIN:CREATININE URINE ALBUMIN:CREATININE 04-16-2021 - [facility] RATIO RATIO 04-16-2021 ([id number]) LDL CHOLESTEROL LDL CHOLESTEROL 12-16-2020 - [facility] 12-16-2020 ([id number]) HBA1C HBA1C 10-16-2020 - [facility] 10-16-2020 ([id number]) MAMMOGRAM MAMMOGRAM 09-19-2020 - [facility] 09-19-2020 ([id number]) INFLUENZA (#1) INFLUENZA (#1) 2020 - [facility] 07-17-2020 ([id number]) DIABETIC FOOT EXAM DIABETIC FOOT EXAM 04-19-2020 - [facility] 04-19-2020 ([id number]) HPV TESTING HPV TESTING 07-11-2018 - [facility] 07-11-2018 ([id number]) COLONOSCOPY COLONOSCOPY 03-07-2018 - [facility] 03-07-2018 ([id number]) COLORECTAL CANCER COLORECTAL CANCER 03-07-2018 [facility] inic SCREENING,SEE MODIFIER SCREENING,SEE MODIFIER (1 1768) DILATED RETINAL EXAM DILATED RETINAL EXAM 11-12-2017 - [facility] 11-12-2017 ([id number]) SHINGRIX VACCINE (1 of SHINGRIX VACCINE (1 of 2010 - [facility] 2) 2) 2010 (03041) DTAP,TDAP,TD (1 - Tdap) DTAP,TDAP,TD (1 - Tdap) 1979 - [facility] 1979 (05549) BP CONTROLLED (<130/80) BP CONTROLLED (<130/80) 1978 - [facility] 1978 (62306) HEPATITIS C SCREENING HEPATITIS C SCREENING 1978 - [facility] 1978 (97002) HIV SCREENING HIV SCREENING 1978 - [facility] 1978 (91268) no information [facility] (65473) Immunizations Vaccine Notes Status Date Location Influenza Vaccine, influenza virus (completed) 08-03-2013 - [facility] Split-Non Spec vaccine, unspecified 08-03-2013 (4419 5) formulation Influenza Seasonal influenza, injectable, (completed) 08-24-2019 - [facility] Inj Quadrivalent Age quadrivalent, contains 08-24-2019 (86292) 3+ preservative Influenza Seasonal influenza, injectable, (completed) 10-11-2018 - [facility] Inj Quadrivalent Age quadrivalent, contains 10-11-2018 (65373) 3+ preservative Influenza Seasonal influenza, injectable, (completed) 10-25-2015 - [facility] Inj Quadrivalent Age quadrivalent, contains 10-25-2015 (55625) 3+ preservative Influenza Seasonal influenza, seasonal, (completed) 07-31-2014 [facility] Inj Age 3+ injectable 07-31-2014 (39233) Pneumococcal-13 Vac pneumococcal conjugate (completed) 09-06-2014 - [facility] Conjugate vaccine, 13 valent 09-06-2014 (09343) Pneumovax pneumococcal ([facility]) [facility], 03-12-2015 (441 95) 23 valent Influenza Recombinant Seasonal, trivalent, (completed) 08-31-2016 - [facility] Seasonal Inj PresFree recombinant, injectable 08-31-20 16 (80691) influenza vaccine, preservative free Payers Payer Name Policy Number Location EDDIE LEGER O [id number] [facility] ([id number]) [employer] MEDICARE [id number] [facility] (44 195) The following information is from the original human readable contentNo Payer Records Found Social History Type Social History Date Location Description Tobacco smoking status Current every day smoker 04-19-2020 - [facility] NHIS 04-19-2020 (53687) History of tobacco use Cigarette Smoker [facility] ([id number]) Cigarettes smoked 04-19-2020 - [facility] ic current (pack per day) 04-19-2020 (36034) - Reported Tobacco use and Never used 04-19-2020 - [facility] exposure 04-19-2020 (34273) Alcohol intake Current non-drinker of 04-19-2020 - [facility] alcohol (finding) 04-19-2020 (58465) Tobacco Comment 10 cigarettes per day 04-19-2019 - [facility] 04-19-2019 (76394) Alcohol Comment 2 drinks/month 05-25-2014 - [facility] 05-25-2014 (30172) Sex Assigned At Not on file [facility] ([id number]) The following information is from the original [...] premature coronary artery disease 04/17/2020 Overview: mother PA at 50 Arthritis, hip 04/17/2020 Problem Noted Date Resolved Date Peripheral polyneuropathy 07/09/2017 04/17/2020 Skin lesion, superficial 06/15/2015 04/17/2020 Right leg pain 06/07/2015 04/17/2020 Abdominal pain, unspecified site 05/12/2015 020 Anal fissure 07/31/2014 04/17/2020 History of colon polyps 03/07/2013 04/17/2020 Family history of colon cancer 0 Overview: Father 55 Family history of premature coronary artery disease 04/17/2020 Overview: mother PA at 50 Arthritis, hip 04/17/2020 Problem Noted Date Resolved Date Peripheral polyneuropathy 07/09/2017 04/17/2020 Skin lesion, superficial 06/15/2015 04/17/2020 Right leg pain 06/07/2015 04/17/2020 Abdominal pain, unspecified site 05/12/2015 020 Anal fissure 07/31/2014 04/17/2020 History of colon polyps 03/07/2013 04/17/2020 Family history of colon cancer 0 Overview: Father 55 Family history of premature coronary artery disease 04/17/2020 Overview: mother PA at 50 Arthritis, hip 04/17/2020 Assessments Diagnosis Cough Diagnosis Muscle cramps Cramp of limb Reason for Referral Status Reason Specialty Diagnoses / Procedures Referred By C ontact Referred To Contact Closed Diagnoses Muscle cramps Carly Rogers [address] [place], [place] [address] Phone: Additional Source Comments FOR RECORDS PERTAINING [...] BE BASED ON THE PRIMARY CLINICAL RECORDS. [facility] provides no warranty or guarantee of the accuracy or completeness of information in this document. UNRECOGNIZED CONTENT PROVIDED BELOW FOR UNRECOGNIZED SECTION INFORMATION SOURCE DATE CREATED AUTHOR AUTHOR'S COREYDOREENO N 05/12/2018 [facility] DATE CREATED AUTHOR AUTHOR'S ORGANIZATIO N 08/20/2020 [facility] UNRECOGNIZED CONTENT PROVIDED BELOW FOR UNRECOGNIZED SECTION Source Comments In the event this information is protected by the Federal Confidentiality of Alcohol and Drug Abuse Patient Records regulations: The Federal rules restrict any use of the information to criminally investigate or prosecute any alcohol or drug abuse patient.[facility] the event this information is protected by the Federal Confidentiality of Alcohol and Drug Abuse Patient Records regulations: The Federal rules restrict any use of the information to criminally investigate or prosecute any alcohol or drug abuse patient.[facility] the event this information is protected by the Federal Confidentiality of Alcohol and Drug Abuse Patient Records regulations: The Federal rules restrict any use of the information to criminally investigate or prosecute any alcohol or drug abuse patient.[facility] the event this information is protected by the Federal Confidentiality of Alcohol and Drug Abuse Patient Records regulations: The Federal rules restrict any use of the information to criminally investigate or prosecute any alcohol or drug abuse patient.[facility] the event this information is protected by the Federal Confidentiality of Alcohol and Drug Abuse Patient Records regulations: The Federal rules restrict any use of the information to criminally investigate or prosecute any alcohol or drug abuse patient.[facility] UNRECOGNIZED CONTENT PROVIDED BELOW FOR UNRECOGNIZED [...]
--- OUTSIDE RECORDS SUMMARY | 2020-08-28 16:06 | XMS RPT_ITS | CCD ---
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 gathered by the clinical software support engineer and the remaining scr ibed [...] QUADRIVALENT AGE 3 YRS PLUS + IM [[id number]] Order #: [id number] losartan (COZAAR) 50 mg tabletTake 1 tablet [...] Provider Location 06-25-2020 - Documentation External Provider [facility] 06-25-2020 procedure 12-21-2016 - Emergency department Pain in right INC GEMS NO Facili ty:[facility] 12-21-2016 patient visit hip REFERRING [facility] 07-24-2020 - Letter encounter Carly Rogers [facility] 07-24-2020 [place] 07-02-2020 - Patient encounter External Provider [facility] 07-02-2020 procedure 06-25-2020 Patient encounter External Provider [facility] procedure 08-20-2020 - Refill Cramp Carly Manuel [facility] icine 08-20-2020 [place] Comment: Refill Request 07-30-2020 - 07-30-2020 Refill Cough Carly Manuel [facility] [place] Comment: Refill Request 07-02-2020 Results Only External Provider External-N on[facility] Procedures Procedure Name Date Provider Location EXTERNAL IMAGING 07-02-2020 External Provider [facility] [place] ([id number]) Mammography 09-19-2019 - 09-19-2019 [facility] ([id number]) Colonoscopy 03-07-2013 - 03-07-2013 [facility] ([id number]) Plan of Treatment Plan Description Date Location PAP TESTING PAP TESTING 09-19-2024 - [facility] 09-19-2024 ([id number]) ANNUAL PCP TEAM CHRONIC ANNUAL PCP TEAM CHRONIC 04-19-2021 - [facility] DISEASE VISIT DISEASE VISIT 04-19-2021 ([id number]) URINE ALBUMIN:CREATININE URINE ALBUMIN:CREATININE 04-16-2021 - [facility] RATIO RATIO 04-16-2021 ([id number]) LDL CHOLESTEROL LDL CHOLESTEROL 12-16-2020 - [facility] 12-16-2020 (45063) HBA1C HBA1C 10-16-2020 - [facility] 10-16-2020 ([id number]) MAMMOGRAM MAMMOGRAM 09-19-2020 - [facility] 09-19-2020 ([id number]) INFLUENZA (#1) INFLUENZA (#1) 2020 - [facility] 07-17-2020 (23406) DIABETIC FOOT EXAM DIABETIC FOOT EXAM 04-19-2020 - [facility] 04-19-2020 (56811) HPV TESTING HPV TESTING 07-11-2018 - [facility] 07-11-2018 (49023) COLONOSCOPY COLONOSCOPY 03-07-2018 - [facility] 03-07-2018 (71241) COLORECTAL CANCER COLORECTAL CANCER 03-07-2018 [facility] inic SCREENING,SEE MODIFIER SCREENING,SEE MODIFIER (6 6837) DILATED RETINAL EXAM DILATED RETINAL EXAM 11-12-2017 - [facility] 11-12-2017 (13796) SHINGRIX VACCINE (1 of SHINGRIX VACCINE (1 of 2010 - [facility] 2) 2) 2010 (79065) DTAP,TDAP,TD (1 - Tdap) DTAP,TDAP,TD (1 - Tdap) 1979 - [facility] 1979 (92610) BP CONTROLLED (<130/80) BP CONTROLLED (<130/80) 1978 - [facility] 1978 (12831) HEPATITIS C SCREENING HEPATITIS C SCREENING 1978 - [facility] 1978 (75002) HIV SCREENING HIV SCREENING 1978 - [facility] 1978 (58984) no information [facility] (35419) Immunizations Vaccine Notes Status Date Location Influenza Vaccine, influenza virus (completed) 08-03-2013 - [facility] Split-Non Spec vaccine, unspecified 08-03-2013 (4419 5) formulation Influenza Seasonal influenza, injectable, (completed) 08-24-2019 - [facility] Inj Quadrivalent Age quadrivalent, contains 08-24-2019 (04035) 3+ preservative Influenza Seasonal influenza, injectable, (completed) 10-11-2018 - [facility] Inj Quadrivalent Age quadrivalent, contains 10-11-2018 (27247) 3+ preservative Influenza Seasonal influenza, injectable, (completed) 10-25-2015 - [facility] Inj Quadrivalent Age quadrivalent, contains 10-25-2015 (32312) 3+ preservative Influenza Seasonal influenza, seasonal, (completed) 07-31-2014 [facility] Inj Age 3+ injectable 07-31-2014 (19198) Pneumococcal-13 Vac pneumococcal conjugate (completed) 09-06-2014 - [facility] Conjugate vaccine, 13 valent 09-06-2014 (95433) Pneumovax pneumococcal (completed) 03-12-2015 - [facility] c polysaccharide vaccine, 03-12-2015 (441 95) 23 valent Influenza Recombinant Seasonal, trivalent, (completed) 08-31-2016 - [facility] Seasonal Inj PresFree recombinant, injectable 08-31-20 16 (00466) influenza vaccine, preservative free Payers Payer Name Policy Number Location EDDIE LEGER O [id number] [facility] ([id number]) [employer] [id number] [facility] (44 195) The following information is from the original human readable contentNo Payer Records Found Social History Type Social History Date Location Description Tobacco smoking status Current every day smoker 04-19-2020 - [facility] NHIS 04-19-2020 (97859) History of tobacco use Cigarette Smoker [facility] ([id number]) Cigarettes smoked 04-19-2020 - [facility] ic current (pack per day) 04-19-2020 (51765) - Reported Tobacco use and Never used 04-19-2020 - [facility] exposure 04-19-2020 (67564) Alcohol intake Current non-drinker of 04-19-2020 - [facility] alcohol (finding) 04-19-2020 (74368) Tobacco Comment 10 cigarettes per day 04-19-2019 - [facility] 04-19-2019 (26107) Alcohol Comment 2 drinks/month 05-25-2014 - [facility] 05-25-2014 (47005) Sex Assigned At Not on file [facility] (06777) The following information is from the original [...] Contact Closed Diagnoses Muscle cramps Carly Rogers [address] [place], [place] [address] Phone: Additional Source Comments FOR RECORDS PERTAINING [...] BE BASED ON THE PRIMARY CLINICAL RECORDS. [facility] provides no warranty or guarantee of the accuracy or completeness of information in this document. UNRECOGNIZED CONTENT PROVIDED BELOW FOR UNRECOGNIZED SECTION INFORMATION SOURCE DATE CREATED AUTHOR AUTHOR'S COREYDOREENO N 05/12/2018 [facility] DATE CREATED AUTHOR AUTHOR'S ORGANIZATIO N 08/20/2020 [facility] UNRECOGNIZED CONTENT PROVIDED BELOW FOR UNRECOGNIZED SECTION Source Comments In the event this information is protected by the Federal Confidentiality of Alcohol and Drug Abuse Patient Records regulations: The Federal rules restrict any use of the information to criminally investigate or prosecute any alcohol or drug abuse patient.[facility] the event this information is protected by the Federal Confidentiality of Alcohol and Drug Abuse Patient Records regulations: The Federal rules restrict any use of the information to criminally investigate or prosecute any alcohol or drug abuse patient.[facility] the event this information is protected by the Federal Confidentiality of Alcohol and Drug Abuse Patient Records regulations: The Federal rules restrict any use of the information to criminally investigate or prosecute any alcohol or drug abuse patient.[facility] the event this information is protected by the Federal Confidentiality of Alcohol and Drug Abuse Patient Records regulations: The Federal rules restrict any use of the information to criminally investigate or prosecute any alcohol or drug abuse patient.[facility] the event this information is protected by the Federal Confidentiality of Alcohol and Drug Abuse Patient Records regulations: The Federal rules restrict any use of the information to criminally investigate or prosecute any alcohol or drug abuse patient.[facility] UNRECOGNIZED CONTENT PROVIDED BELOW FOR UNRECOGNIZED SECTION [...]
== END 2020-04-06 12:21 | disposition home or self-care (01) ==
LOC: ED 12:15
PROVIDERS: Emergency Provider Emergency Medicine; PCP Family Medicine
DX: Z48.01 Encounter for change or removal of surgical wound dressing (principal); L02.214 Cutaneous abscess of groin; I10 Essential (primary) hypertension; E11.9 Type 2 diabetes mellitus without complications; E78.5 Hyperlipidemia, unspecified; F32.9 Major depressive disorder, single episode, unspecified; F41.9 Anxiety disorder, unspecified; F17.200 Nicotine dependence, unspecified, uncomplicated; E66.9 Obesity, unspecified; Z68.41 Body mass index [BMI] 40.0-44.9, adult; Z95.0 Presence of cardiac pacemaker; Z79.84 Long term (current) use of oral hypoglycemic drugs; Z79.899 Other long term (current) drug therapy
CPT/HCPCS: 99284

== ENCOUNTER 2020-04-07 01:56 | Emergency (ER) | payer MEDICARE, SELFPAY ==
[2020-04-06 11:52] VITALS: BMI 43.2
[2020-04-07 01:57] VITALS: BP 160/81; PULSE 99; RESP 18; TEMP 37.2; O2SAT 100; BMI 45.1
--- NOTE | 2020-04-07 02:07 | ED.DCSUM_ITS ---
History of Present Illness Chief Complaint: Nausea/Vomiting Informant: Patient Narrative: Patient stated that she was brushing her teeth tonight and got nauseous and spit up. She had a dry heave. She recently had surgery on a right inner thigh abscess. She came to emergency department earlier today as she had a mild leak in her wound VAC. She denies any other symptoms other than nausea. She did not actually vomit. No fevers or chills. She is on Augmentin for enterococcus that grew out of her wound. She is followed by Dr. Olmedo. Current severity is mild. Came in for evaluation and treatment of the nausea. No diarrhea. - Past Medical History (1) Abscess of right thigh Status: Acute (2) Necrotizing soft tissue infection Status: Acute (3) Open wound of right thigh Status: Acute (4) Anxiety and depression Status: Chronic (5) Diabetes mellitus type 2 in obese Status: Chronic (6) Essential (primary) hypertension Status: Chronic (7) HLD (hyperlipidemia) Status: Chronic (8) History of permanent cardiac pacemaker placement Status: Chronic (9) Intermittent complete heart block Status: Chronic Comment: PPM placement on 08/08/2019; (10) Nicotine dependence Status: Chronic (11) Small bowel ileus Status: Resolved Past Medical History - Allergies and Home Meds Allergies/Adverse Reactions: Allergies enalapril Adverse Reaction (Verified 04/06/20 11:52) COUGH lisinopril Adverse Reaction (Verified 04/06/20 11:52) COUGH Primary Care Physician: Lamberto Rogers MD [Primary Care Provider] - Prior records reviewed: Yes Past Medical History: - - See problem list Surgical History: total hip arthroplasty - bilat, - - lumbar sacral trauma due to fall on a fiberglass boat, bilateral hip replacement. Smoking Status: Current every day smoker Alcohol: None Drugs: None - Family History Maternal Family History: Family History (Last Reviewed 10/05/19 @ 13:42 by Syl Fischer) Father Colon cancer Mother Diabetes Heart disease Family History: Reports: - - diabeties,heart disease Paternal Family History: Family History (Last Reviewed 10/05/19 @ 13:42 by Syl Fischer) Father Colon cancer Mother Diabetes Heart disease Family History: Reports: - - colon cancer at age 55-58 Review of Systems General: Denies: Chills, Fever, Sweats Eyes: Denies: Visual changes - bilaterally, Diplopia ENT: Denies: Rhinorrhea, Sore throat Cardiovascular: Denies: Chest pain, Palpitations Respiratory: Denies: Dyspnea, Cough, Dyspnea on exertion Gastrointestinal: Reports: Nausea. Denies: Abdominal pain, Vomiting, Diarrhea, Melena, Hematochezia Genitourinary: Denies: Dysuria, Hematuria, Frequency Musculoskeletal: Denies: Back pain Skin: Reports: Abscess - Status post treatment with wound VAC. Denies: Rash, Wounds Neurological: Denies: Headache, Weakness, Numbness Physical Exam Vital Signs/Narrative: Vital Signs Temp Pulse Resp BP Pulse Ox 04/07/20 01:57 98.9 F 99 18 160/81 H 100 General: Well nourished, Well developed, No Acute Distress Head: Normocephalic, Atraumatic Eyes: Perrl, EOMI ENT: Moist mucous membranes, No rhinorrhea Neck: Supple, Nontender Cardiovascular: Regular rate, Regular rhythm, No murmurs Respiratory: No distress, CTA bilaterally, Chest nontender Abdomen: Soft, Nontender, Nondistended, Normal bowel sounds Back: Nontender, Normal Inspection Extremities: Nontender, No edema Skin: Normal color, No rash, - - Wound VAC in place in her right inner thigh. No redness or signs of infection. Neurological: Alert, Oriented x3, Cranial nerves II-XII grossly intact, Normal Strength, Normal Sensation Psychological: Normal affect, Normal Mood Diagnostic/Tx/Re-eval - Medical Decision Making At this time the patient had nausea while brushing her teeth and spit up. Given oral dissolving Zofran. I do not feel she needs lab work or imaging or is toxic. The patient refused the Zofran. She requested Ativan. It was explained to her that she does not need benzodiazepines for nausea. She would like to be discharged. She will be discharged with a prescription for Zofran ED Disposition - Plan for ED Patient: Disposition: Home or Assisted Living Diagnosis: Nausea Instructions: ED Nausea Vomiting Adult Prescriptions: Ondansetron [Zofran Odt] 8 mg PO Q8H PRN PRN #20 tab PRN Reason: Nausea Transmission Status: Pending to [facility] #[id number] Referrals: Lamberto Rogers MD [Primary Care Provider] -
[2020-04-07] MEDS: Ondansetron ODT 4 MG Tablet 8 MG PO (02:28)
--- NOTE | 2020-04-07 03:39 | ED.RN ---
PT wheeled to lobby via wheelchair. Offered to place her by a outlet so she could charge her wound vac, pt refused. PT waiting for taxi to pick her up.
--- OUTSIDE RECORDS SUMMARY | 2020-08-28 16:21 | XMS RPT_ITS | CCD ---
:1960 External Reference #:[id number] Author Organization [employer] Care Team Providers Name Role Phone Qumulo Unavailable Unavailable NO REFERRING DR Mcdermott Unavailable DENISE SEGURA Unavailable Unavailable Carly Rogers Primary Care Provider Allergies Reported Allergen Reaction(s) Severity Date of Onset Location enalapril Translations: [ Cough 01-17-2013 - [facility] ENALAPRIL] System Reposito ry Medications Medication Name Sig Date Prescriber Location Acetaminophen acetaminophen (TYLENOL 01-29-2017 [facility] EXTRA STRENGTH) [address] (4419 5) tablet Indications: Chronic pain of left knee , Pain in right hip Take 1 tablet by mouth every 6 hours as needed for Pain. 120 tablet 2 01/29/2017 Active Comment: Take 1 tablet by mouth every 6 hours as needed for Pain. Amitriptyline amitriptyline (ELAVIL) 06-19-2020 Carly Manuel [facility] 10 mg tablet (22802) Indications: Depression, major, recurrent, mild (HCC) Take 1 tablet by mouth daily at bedtime. 30 tablet 5 06/19/2020 Active Comment: Take 1 tablet by mouth daily at bedtime. amLODIPine amLODIPine (NORVASC) 03-26-2020 Carly Manuel [facility] mg tablet Indications: (4419 5) Essential hypertension Take 1 tablet by mouth once daily. 30 tablet 03/26/2020 Active Comment: Take 1 tablet by mouth once daily. atorvastatin atorvastatin (LIPITOR) 05-21-2020 Carly Manuel [facility] 10 mg tablet (20952) Indications: Mixed hyperlipidemia Take 1 tablet by [...] benzonatate (TESSALON 03-23-2020 - [facility]) 100 mg capsule 07-30-2020 (01968) Indications: Cough Take 1 capsule by mouth three times daily as needed for Cough. 30 capsule 2 03/23/2020 07/30/2020 Discontinued Comment: Take 1 capsule by mouth thre e times daily as needed for Cough. Cephalexin cephALEXin (KEFLEX) 500 mg 08-25-2019 [facility] Provider C [facility] (43163) capsule EVERY 6 HOURS 0 08/25/2019 Active Comment: EVERY 6 HOURS COMPOUNDED COMPOUNDED 09-16-2019 Carly Manuel [facility] PRESCRIPTION PRESCRIPTION [employer] (08854) AirCurve 10 S VPAP machine with heated humidity and heated tubing. Pressure set to 22/16 cm H2O. [email or web address] 0 09/16/2019 Active COMPOUNDED PRESCRIPTION [employer] 09-16-2019 Carly [facility] (56646) AirCurve 10 S VPAP machine with heated humidity and heated tubing. Pressure set to 22/16 cm H2O. [employer] 0 09/16/2019 Active COMPOUNDED PRESCRIPTION [employer] 09-16-2019 Carly [facility] (57339) AirCurve 10 S VPAP machine with heated humidity and heated tubing. Pressure set to 22/16 cm H2O. [employer] 0 09/16/2019 Active COMPOUNDED PRESCRIPTION [employer] 09-16-2019 Carly [facility] (23713) AirCurve 10 S VPAP machine with heated humidity and heated tubing. Pressure set to 22/16 cm H2O. [email or web address] 0 09/16/2019 Active COMPOUNDED PRESCRIPTION [employer] 09-16-2019 Carly [facility] (92509) AirCurve 10 S VPAP machine with heated humidity and heated tubing. Pressure set to 22/16 cm H2O. [email or web address] 0 09/16/2019 Active Comment: [employer] AirCurve 10 S VPAP ma elsa with heated humidity and heated tubing. Pressure set to 22/16 cm H2O . [email or web address] cyclobenzaprine cyclobenzaprine 08-24-2019 - Carly Manuel [place] (FLEXERIL) 10 mg 08-20-2020 [facility] (441 95) tablet Indications: Muscle cramps Take 1 tablet by mouth three times daily as needed. 30 tablet 5 08/20/2020 Active Comment: Take 1 tablet by mouth three times daily as needed. dulaglutide dulaglutide (TRULICITY) 04-19-2020 Carly Manuel [facility] 0.75 mg/0.5 mL pnij (82171) Indications: Type 2 diabetes mellitus without complication, without long-term current use of insulin (HCC) Inject 0.75 mg subcutaneously one time a week. Inject dose once per week. Discard Pen After 4 Pen 5 04/19/2020 Active Comment: Inject 0.75 mg subcutaneousl y one time a week. Inject dose once per week. Discard Pen After telmisartan telmisartan (MICARDIS) 05-23-2020 Carly Manuel [facility] 40 mg tablet Take 1 (71808) tablet by mouth once daily. 30 tablet 5 05/23/2020 Active Comment: Take 1 tablet by mouth once daily. Problems Active Problems Category Problem Name Status Date Location Cardiac dysrhythmias Sick sinus syndrome Active 08-24-2019 - [facility] (41795) Conduction disorders Cardiac pacemaker in Active 08-24-2019 - [facility] situ (86212) Diabetes mellitus Type 2 diabetes Active 03-29-2013 - [facility] without complication mellitus without [facility] complications (34320) Disorders of lipid Hyperlipidemia, Active 03-29-2013 - [facility] metabolism unspecified [facility] (35593) Essential hypertension Essential (primary) Active 03-29-2013 - [facility] hypertension [facility] (65886) Mood disorders Bipolar disorder, Active 12-21-2016 - [facility] (06222) Nutritional deficiencies Vitamin D deficiency Active [facility] (52514) Osteoarthritis Unilateral primary Active 09-06-2015 - [facility] osteoarthritis, right [facility] hip (03259) Other connective tissue 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-2016 - [facility] disease artificial hip joint [facility] System (16627) Other connective tissue Cramp Active [facility] disease (96140) Other inflammatory Rosacea Active 03-28-2013 - [facility] condition of skin (24308) Other lower respiratory Cough Active [facility] disease (11598) Other nervous system Other chronic pain Active 12-21-2016 - [facility] (80116) Other nervous system Sural neuropathy Active 06-02-2015 - [facility] disorders (98195) Other nutritional; Morbid obesity Active 09-19-2019 - [facility] endocrine; and metabolic (44 195) disorders Other nutritional; Obesity Active 03-29-2013 - [facility] endocrine; and metabolic (44 195) disorders Residual codes; Obstructive sleep apnea Active 08-24-2019 - [facility] unclassified syndrome (07235) Schizophrenia and other Schizophrenia, Active 12-21-2016 - [facility] psychotic disorders unspecified [facility] (72253) Past or Other Problems Category Problem Name Status Date Location Other inflammatory Seborrheic Completed 03-28-2013 - [facility] condition of skin dermatitis (52723) Other non-traumatic Pain in right hip Completed 12-21-2016 - [facility] joint disorders [facility]ste m (86290) Other screening for Magnetic resonance Completed 07-09-2017 - [facility] suspected conditions imaging of brain (44 195) (not mental disorders abnormal or infectious disease) Results Result Name Value Range Unit Interpretation Flag Date Location obsolete on 2020-08 OBSOLETE Refill (FAMPWS) Normal 08-20-2020 [facility] ABE STEVENSON ([id number]) 1960 [facility] Time Provider Department (04080) 08/20/20 CARLY ROGERS During your visit today, [...] Normal 07-30-2020 Jose Rafael [place]un[place] ABE Auguste ([id number]) 1960 [facility] Date Time Provider Department (04826) 07/30/20 CARLY ROGERS FAMPWS During your visit [...] 2020-07-24 [facility]CO Letter Text Normal 07-24-2020 [facility] (62759) obsolete on 2020-06 OBSOLETE Refill (FAMPWS) Normal 06-19-2020 Jose Rafael [place]un[place] [facility] ABE STEVENSON ([id number]) 1960 [facility] Date Time Provider Department (21253) 06/19/20 CARLY ROGERS During your visit today, [...] on 2020-06-15 CNPN Telephone (FAMPWS) Normal 06-15-2020 [place] [facility] ABE STEVENSON ([id number]) 1960 Kadeem [place] Date Time Provider Department (03682) 06/15/20 CARLY ROGERS During your visit today, we recorded the following informati on about you: Macie Lloyd MA 06/15/2020 8:42 AM Signed Received forms for pt from [facility], requesting verification of disability. Please review forms, complete, then fax back to [phone]. Macie Rogers MD 06/18/2020 5:11 PM Signed [...] (FAMPWS) Normal 06-11-2020 [facility] ABE STEVENSON ([id number]) 1960 [place] Date Time Provider Department (55042) 06/11/20 CARLY ROGERS During your visit today, we recorded the following informati on about you: Bea Santana RN 06/11/2020 2:44 PM Signed Archana from [facility] tayla led, verified pt by [...] - Cough Date Reviewed: 04/19/2020 Reviewed by: Maice Lloyd MA - Fully Assessed Reason for [...] on 2020-05-23 CNPN Telephone (FAMPWS) Normal 05-23-2020 [facility] ABE STEVENSON ([id number]) 1960 [facility] Date Time Provider Department (32591) 05/23/20 CARLY ROGERS During your visit today, [...] She will update pt and advise she cone picker medication. Macie Lloyd MA Allergies As [...] Refill (FAMPWS) Normal 05-21-2020 Jose Rafael [place] [facility] GRAHAMABE FALK ([id number]) 1960 [facility] Date Time Provider Department (23082) 05/21/20 CARLY ROGERS During your visit today, [...] on 2020-05-09 CNPN Telephone (FAMWS) Normal 05-09-2020 [place] [facility] ABE STEVENSON ([id number]) 1960 [place] Date Time Provider Department (66165) 05/09/20 CARLY ROGERS During your visit today, we recorded the following informati on about you: Renate Denis RN 05/09/2020 2:11 PM Signed Nurse Kassandra calls from [facility]. Did woun d care on [...] review and advise. Please call Kassandra at [phone] with any new orders. DORINA Tracey MD 05/09/2020 3:39 PM Signed Noted; continue to monitor at scheduled nurse visits MD Adriana Lance Ma 05/09/2020 4:06 PM Signed Kassandra notified. dAriana Haider Ma Allergies As of Date: 05/09/2020 [...] 2020-05-04 CNPN Telephone (FAMPWS) Normal 05-04-2020 [place] [facility] ABE STEVENSON ([id number]) 1960 [facility] Date Time Provider Department (40729) 05/04/20 CARLY ROGERS During your visit today, [...] will be checked again on Thursday at [facility]. Adriana Haider Ma Allergies As of [...] 05/04/20 progress on 2020-04 PROGRESS HNO ID: [id number] Normal 04-19-2020 [facility] Author: Carly Rogers [place] ([id number]) Service: ? Author Type: Physician Type: Progress [...] [facility]. Has [...] care of her supplies and Kindr rosaura [facility] takes care of the wound. Has been given rx's for Valium 5 mg and Percocet 5-325 mg - hasn't been taking. Past medical history, appointments, medications, allergies nancy parisi. Previous Medical History PAST MEDICAL HISTORY Diagnosis Date - Arthritis, hip - Diabetes mellitus (HCC) 03/2012 - Family history of colon cancer Father 55 - Family history of premature coronary artery disease mother [place] at 50 - History of colon polyps [...] Onset - Coronary Artery Disease Mother 50 [place] - Diabetes Mother 40 age 68 - [...] capsule EVERY 6 HOURS - COMPOUNDED PRESCRIPTION [employer] AirCurve 10 S VPAP machine with heated humidity and heated tubing. Pressure set to 22/16 cm H2O. Nevro. - atorvastatin (LIPITOR) 10 mg tablet Take [...] AGE 65 Completed INFLUENZA Completed Data reviewed [facility] Appointment on 04/16/2020 Component Date Value [...] Histories in dependently gathered by the clinical credit support counselor and the remaining scr ibed note accurately describes my personal service to the patient. Carly Rogers MD The documentation for this note was completed by Macie cruz MA acting as scribe for Carly Rogers MD. April 19, 2020 9:37 AM. Macie shortov on 2020-04-19 CNOV Office Visit (FAMPWS) Normal 04-19-[address] [place] [address] [facility] BAE STEVENSON ([id number]) 1960 [facility] Date Time Provider Department (36323) 04/19/20 9:40 AM CARLY ROGERS During your [...] Pt [facility]. Has been there since [...] Center takes care of her supplies and [facility] takes care of the wound. Has [...] history of premature coronary artery disease mother [place] at 50 - History of colon polyps 03/07/2013 - HTN (hypertension) - Hyperlipemia - Obesity - Rosacea - Seborrheic dermatitis - Vitamin D deficiency Previous Surgical History PAST SURGICAL HISTORY Procedure Laterality Date - COLONOSCOPY AND POLYPECTOMY 03/07/13 repeat due 2018, tubular adenoma - PAST SURGICAL HISTORY OF cyst removed from uterus while - TOTAL HIP JOINT REPLACEMENT Left 02/2018 [facility] - TOTAL HIP JOINT REPLACEMENT Right 06/2018 [facility] Family History FAMILY HISTORY Problem Relation Age of Onset - Coronary Artery Disease Mother 50 [place] - Diabetes Mother 40 age 68 - [...] capsule EVERY 6 HOURS - COMPOUNDED PRESCRIPTION [employer] AirCurve 10 S VPAP machine with heated humidity and heated tubing. Pressure set to 22/16 cm H 2O. [email or web address] - atorvastatin (LIPITOR) 10 mg tablet Take [...] AGE 65 Completed INFLUENZA Completed Data reviewed [facility] Appointment on 04/16/2020 Component Date Value [...] Histories in dependently gathered by the clinical credit support counselor and the remaining scr ibed note accurately describes my personal service to the patient. Carly Rogers MD The documentation for this note was completed by Macie cruz MA acting as scribe for Carly Rogers MD. April 19, 2020 9:37 AM. Macie Lloyd MA Referring Provider: CARLY ROGERS [[id number]] Allergies As of Date: 04/19/2020 Noted Allergy [...] Pen AfterDisp: 4 PenRfl: 5 HGB A1C [IZRTO0F] Order #: [id number] FUTURE COMP METABOLIC PANEL [SQCMP] Order #: [id number] FUTURE LIPID PANEL BASIC [SQLIPB] Order #: [id number] FUTURE Prescriptions as of 04/19/2020 Sig: LANCETS [...] on 2020-04-17 CNPN Telephone (FAMPWS) Normal 04-17-2020 [place] [facility] ABE STEVENSON ([id number]) 1960 [facility] Date Time Provider Department (69948) 04/17/20 [facility] ROGERS [facility] During your visit today, we recorded the following informati on about you: Bea Santana RN 04/17/2020 3:39 PM Signed Leticia from [facility] called, verified pt by name [...] [Mass fraction] 171 mg/dL Normal [facility] (71039) Comment: Result Comment: eAG: (Estima jayna average glucose) is a calculated value from HgbA1c and is containers sales representative of the average blood glucose level in the last 2-3 month period. Performed By: #### HBA1C, CM P ####[address] [phone] HbA1c (Bld) [Mass fraction] 7.6 4.3-5.6 % High [facility] (95420) Comment: Result Comment: [place] Carm[place] betes Association guidelines indicate that patients with HgbA1c in the range 5.7-6.4% are at increased risk for development of diabetes, and intervention by lifestyle modification may be beneficial. HgbA1c greater o r equal to 6.5% is considered diagnostic of diabetes. Performed By: #### HBA1C, CM P ####[place] [address] [address], [place] [phone]- [phone] comp metabolic panel on 2020-04-16 Albumin [Mass/Vol] 4.1 3.9-4.9 g/dL Normal 04-16-2020 [facility] (34705) Comment: Performed By: #### HBA1C, CM P ####[address] [phone] ALP [Catalytic activity/Vol] 120 34-123 U/L Normal 0 04-16-2020 [facility] (90221) Comment: Performed By: #### HBA1C, CM P ####[facility], [place] [phone] ALT [Catalytic activity/Vol] 32 7-38 U/L Normal 0 04-16-2020 [facility] (23042) Comment: Performed By: #### HBA1C, CM P ####[place] [address] [address], [place] [phone]- [phone] Anion gap [Moles/Vol] 16 9-18 mmol/L Normal 04-16-20 20 [facility] (20043) Comment: Performed By: #### HBA1C, CM P ####[place] [address] [address], [place] [phone]- [phone] AST [Catalytic activity/Vol] 35 13-35 U/L Normal 0 04-16-2020 [facility] (01824) Comment: Performed By: #### HBA1C, CM P ####[place] [address] [address], [place] [phone]- [phone] Bilirubin [Mass/Vol] 0.2 0.2-1.3 mg/dL Normal 0 [facility] (90994) Comment: Performed By: #### HBA1C, CM P ####[place] [address] [address], [place] [phone] Calcium [Mass/Vol] 10.6 8.5-10.2 mg/dL High 04-16-2020 [facility] (97385) Comment: Performed By: #### HBA1C, CM P ####[place] [address] [address], [place] [phone] Chloride [Moles/Vol] 105 97-105 mmol/L Normal 0 [facility] (41151) Comment: Performed By: #### HBA1C, CM P ####[place] [address] [address], [place] [phone] CO2 [Moles/Vol] 21 22-30 mmol/L Low 04-16-2020 [facility] (41214) Comment: Performed By: #### HBA1C, CM P ####[facility] [address] [place], [place] [phone]- [phone] Creatinine [Mass/Vol] 0.79 0.58-0.96 mg/dL Normal 04-16-20 20 [facility] (61831) Comment: Performed By: #### HBA1C, CM P ####[facility] [address] [place], [place] [phone]- [phone] eGFR- Amer. >60 Normal 04-16-2020 [facility] (46241) Comment: Performed By: #### HBA1C, CM P ####[facility] [place] [address] [phone] GFR/1.73 sq M predicted >60 mL/min/{1.73_m2} Normal 04-16-2020 [facility] among non-blacks [facility] (14498) (S/P/Bld) [Vol rate/Area] Comment: Result Comment: eGFR [...] GFR. Performed By: #### HBA1C, CM P ####[facility] [address] [place], [place] [phone]- [phone] Glucose [Mass/Vol] 138 74-99 mg/dL High 04-16-2020 [facility] (42113) Comment: Result Comment: The [place] Diabetes Association (ADA) provides guidance for cutoff [...] for diagnosis of diabetes. Reference: Standards of [facility] in Diabetes 2016, [place] Diabetes Association. Diabetes Care. 2016.39(Suppl 1). Performed By: #### HBA1C, CM P ####[place] [address] [address], [place] [phone]- [phone] Potassium [Moles/Vol] 4.4 3.7-5.1 mmol/L Normal 04-16-20 [facility] (78694) Comment: Performed By: #### HBA1C, CM P ####[place] [address] [address] [place], [place] [phone] Protein [Mass/Vol] 7.9 6.3-8.0 g/dL Normal 04-16-2020 [facility] (71316) Comment: Performed By: #### HBA1C, CM P ####[place] [address] [address] [place], [place] [phone]- [phone] Sodium [Moles/Vol] 142 136-144 mmol/L Normal 04-16-2020 [facility] (11314) Comment: Performed By: #### HBA1C, CM P ####[place] [address] [address], [place] [phone]- [phone] Urea nitrogen [Mass/Vol] 13 7-21 mg/dL Normal 04-16 [facility] (13668) Comment: Performed By: #### HBA1C, CM P ####[place] [address] [address] [place], [place] [phone]- [phone] albumin/creat ratio on 2020-04-16 Albumin Urine Random 17.9 mg/L Normal 0 [facility] (35783) Comment: Performed By: #### UACR #### [place] [address] [place], [place] [phone] Albumin/Creat Ratio 12 <30 mg/g Normal 04-16-2020 [facility] (04797) Comment: Result Comment: Adult Male a nd [...] 3(1), 1-150. Performed By: #### UACR #### [facility] [place], [place] [phone] Creatinine,Urine,Ran 143.3 20-300 mg/dL Normal 0 [facility] (53318) Comment: Performed By: #### UACR #### [facility] [place], [place] [phone]- [phone] cnpn on 2020-04-10 CNPN Telephone (FAMWS) Normal 04-10-2020 [place] [facility] ABE STEVENSON ([id number]) 1960 [facility] Date Time Provider Department (35806) 04/10/20 [facility] During your visit today, we recorded the following informati on about you: Renate Velasco LPN 04/10/2020 11:56 AM Signed Dottie with [facility] calling with plan of care for patient. Please advise Dottie PH: [phone]. 1.. Nursing for 2 to 3 times [...] insulin (HCC) [E11.9] Order(s):HOME BLOOD GLUCOSE MONITOR [[id number]] Order #: [id number] Lancets lancetsTest blood sugar(s) 1 times daily. [...] 04/10/20 progress on 2020-03 PROGRESS HNO ID: [id number] Normal 04-06-2020 [facility] Author: Carly Rogers ([id number]) Service: ? Author Type: Physician Type: Progress Notes Filed: 04/06/2020 3:10 PM Note Text: Noted Carly Rogers MD PROGRESS HNO ID: [id number] Normal 04-06-2020 [facility] Author: Cathy Salazar MA ([id number]) Service: ? Author Type: Crime Scene Technician Type: Progress Notes Filed: 04/06/2020 3:10 PM Note Text: TRANSITION CARE MANAGEMENT (TCM) INITIAL CONTACT Crime Scene Technician Outreach Provider Action/FYI: Initial contact with patient post discharge, spoke to pedro lazaro Patient identified by name and . TRANSITION CARE MANAGEMENT INITIAL OUTREACH DOCUMENTATION: Date of Outreach: 04/06/2020 04/06/2020 Outreach Attempt 1: Contact Made - Date of Discharge 04/05/2020 04/05/2020 Some recent data might be hidden SUMMARY: -Pt discharged from [facility] on 04/05/20. -Admitted for: Abcess right [...] ? Yes Medical records from recent hospitalization: [facility] cnptoutreach on CNPTOUTREACH Patient Outreach (FAMPWS) Normal 0 04-06-2020 [place] [facility] ABE STEVENSON ([id number]) 1960 [facility] Time Provider Department (79831) 04/06/20 CARLY ROGERSPWS During your visit today, we recorded the following informati on about you: Cathy Salazar MA, MA 04/06/2020 3:10 PM Signed TRANSITION CARE MANAGEMENT (TCM) INITIAL CONTACT Crime Scene Technician Outreach Provider Action/FYI: Initial contact with patient post discharge, spoke to pedro lazaro Patient identified by name and . TRANSITION CARE MANAGEMENT INITIAL OUTREACH DOCUMENTATION: Date of Outreach: 04/06/2020 04/06/2020 Outreach Attempt 1: Contact Made - Date of Discharge 04/05/2020 04/05/2020 Some recent data might be hidden SUMMARY: -Pt discharged from [facility] on 04/05/20. -Admitted for: Abcess right [...] Status:Closed by CARLY ROGERS MD on 04/06/20 [facility] 2020[facility]04[facility]) Normal 04-06-2020 [place] [facility] ABE STEVENSON ([id number]) 1960 [place] Date Time Provider Department (99208) 04/06/20 [facility] During your visit today, we recorded the following informati on about you: Bea Santana RN 04/06/2020 10:34 AM Signed nurse Leticia from [facility] call ed, verified pt by [...] Ma - Fully Assessed Reason for Visit: custodial care orders [Other] Prescriptions as of 04/06/2020 [...] on 2020-04-05 CNPN Telephone (FAMPWS) Normal 04-05-2020 [place] [facility] ABE STEVENSON ([id number]) 1960 [facility] Date Time Provider Department (05985) 04/05/20 [facility] ROGERS [facility] During your visit today, we recorded the following informati on about you: Ruby Swenson Pss 04/05/2020 12:44 PM Signed Patient is calling to inform doctor that she has been admitt ed to [facility] earlier this week for a Diabetic abscess [...] see how she is doing with the [facility] also. MD Adriana Lance Ma 04/05/2020 [...] Refill (FAMPWS) Normal 03-26-2020 Jose Rafael janneth [facility] ABE STEVENSON ([id number]) 1960 [facility] Date Time Provider Department ([id number]) 03/26/20 CARLY ROGERS FAMENRIKE During your visit [...] 03/27/20 progress on 2020-03 PROGRESS HNO ID: [id number] Normal 03-23-2020 [facility] Author: Carly Rogers [place] ([id number]) Service: ? Author Type: Physician Type: Progress [...] bitten by a spider and went to [facility] ER last year in June 12, [...] history of premature coronary artery disease mother [place] at 50 - History of colon polyps 03/07/2013 - HTN (hypertension) - Hyperlipemia - Obesity - Rosacea - Seborrheic dermatitis - Vitamin D deficiency Previous Surgical History PAST SURGICAL HISTORY Procedure Laterality Date - COLONOSCOPY AND POLYPECTOMY 03/07/13 repeat due 2017, tubular adenoma - PAST SURGICAL HISTORY OF cyst removed from uterus while - TOTAL HIP JOINT REPLACEMENT Left 02/2018 [facility] - TOTAL HIP JOINT REPLACEMENT Right 06/2018 [facility] Family History FAMILY HISTORY Problem Relation Age of Onset - Coronary Artery Disease Mother 50 [place] - Diabetes Mother 40 age 68 - Colon Cancer Father 55 age 58 - Diabetes Sister 60 - Arthritis Sister - Osteoporosis Sister Patient Allergies ALLERGIES Allergen Reactions - Enalapril Cough Current Medications Current Outpatient Medications on File Prior to Visit Medication Sig - cephALEXin (KEFLEX) 500 mg capsule EVERY 6 HOURS - COMPOUNDED PRESCRIPTION [employer] AirCurve 10 S VPAP machine with heated humidity and heated tubing. Pressure set to 22/16 cm H2O. Nevro. - atorvastatin (LIPITOR) 10 mg tablet Take [...] Histories in dependently gathered by the clinical credit support counselor and the remaining scr ibed note accurately describes my personal service to the patient. Carly Rogers MD The documentation for this note was completed by Adriana chris Ma acting as scribe for Carly Rogers MD. March 23, 2020 8:46 AM. Adriana Haider Ma obsolete on 2020-03 OBSOLETE Refill (FAMPWS) Normal 03-22-2020 Jose Rafael janneth [facility] ABE STEVENSON ([id number]) 1960 [place] Date Time Provider Department ([id number]) 03/22/20 CARLY ROGERS During your visit today, [...] bitten by a spider and went to [facility] last year in June 12 2019, [...] Date Reviewed: 11/20/2019 Reviewed by: Dinorah Milligan Maintenance Trainer - Fully Assessed Reason for Visit: Refill [...] HAIDER MA on 03/22/20 [facility]) [facility] 02-06-2020 [place] [facility] ABE STEVENSON ([id number]) 1960 [facility] Date Time Provider Department ([id number]) 02/06/20 [facility] BOWERS (ARNOLD) MICHPWS During your [...] Date Reviewed: 11/20/2019 Reviewed by: Dinorah Milligan Maintenance Trainer - Fully Assessed Reason for Visit: Results [95] Primary Visit Diagnosis:Elevated liver enzymes [R74.8] Other Visit Diagnoses:Essential hypertension [I10] Type 2 diabetes mellitus without complication, without long-term current use of insulin (HCC) [E11.9] Order(s):HGB A1C [IKXVM2M] Order #: [id number] FUTURE COMP METABOLIC PANEL [SQCMP] Order #: [id number] FUTURE ALBUMIN/CREAT RATIO RND UR [SQUACR] Order #: [id number] FUTU RE Prescriptions as of 02/06/2020 Sig: [...] Pnl Negative Negative Normal 0 [facility] (99350) Comment: Result Comment: Normal range : negative at a 1:20 serum dilution. Performed By: #### DEWAYNE, ALK P ####[facility] [place] [address] [phone] alkaline phosphatase on 2020-02-02 ALP [Catalytic activity/Vol] 142 34-123 U/L High 0 02-02-2020 [facility] (38605) Comment: Performed By: #### DEWAYNE, ALK P ####[facility] [address] [place], [place] [phone] us abd spleen -nb o n 2020-01-26 US ABD SPLEEN * * *Final Report* * * Normal [facility] - DATE OF EXAM: Jan 26 2020 7:39AM [place] ([id number]) WRU 1232 - US ABD SPLEEN -NB [...] dilation. No splenomegaly or focal splenic mass. Loan Closer: YOSSI Transcribe Date/Time: Jan 26 2020 7:46A Dictated by : GLORIA BROWN MD This examination was interpreted and the report reviewed and electronically signed by: GLORIA BROWN MD on Jan 26 2020 7:48AM EST [id number] us abd right upper quadrant on 2020-01-26 US ABD RIGHT * * *Final Report* * * Normal 01-14 [facility] UPPER QUADRANT DATE OF EXAM: Jan 26 2020 7:39AM [place] ([id number]) WRU 1032 - US ABD RIGHT UPPER [...] dilation. No splenomegaly or focal splenic mass. Loan Closer: YOSSI Transcribe Date/Time: Jan 26 2020 7:46A Dictated by : GLORIA BROWN MD This examination was interpreted and the report reviewed and electronically signed by: GLORIA BROWN MD on Jan 26 2020 7:48AM EST [id number] progress on 2020-01 PROGRESS HNO ID: [id number] Normal 01-26-2020 [facility] Author: Breanna Fragoso (Tech) [facility] ([id number]) Service: ? Author Type: Manager Publishing Type: Progress Notes Filed: 01/26/2020 7:41 AM [...] 26, 2020 7:41 AM cnpn on 2020-01-26 [facility]) Normal 01-26-2020 [place] [facility] ABE STEVENSON ([id number]) 1960 [facility] Time Provider Department ([id number]) 01/26/20 [facility] ([facility]) FAMWS During your visit today, we [...] Date Reviewed: 11/20/2019 Reviewed by: Dinorah Milligan Maintenance Trainer - Fully Assessed Reason for Visit: Results [95] Primary Visit Diagnosis:Elevated liver enzymes [R74.8] Other Visit Diagnosis:Elevated alkaline phosphatase level [R 74.8] Order(s):MITOCHONDRIAL AB PNL SCRN [SQMITO] Order #: [id number] FUTURE ALKALINE PHOSPHATASE [SQALKP] Order #: [id number] FUTURE Prescriptions as of 01/26/2020 Sig: CEPHALEXIN [...] HAIDER MA on 01/26/20 cnpn on 2020-01-11 [facility] Normal 01-11-2020 [place] [facility] ABE STEVENSON ([id number]) 1960 [facility] Time Provider Department (05034) 01/11/20 [facility] ([facility] During your visit today, we recorded [...] Date Reviewed: 11/20/2019 Reviewed by: Dinorah Milligan Maintenance Trainer - Fully Assessed Reason for Visit: Results [95] Primary Visit Diagnosis:Elevated serum alkaline phosphatase level [R74.8] Order(s):US ABD RT UPPER QUADRANT [[id number]] Order #: [id number] FUTURE Prescriptions as of 01/11/2020 Sig: [...] transferase 66 6-46 U/L High [facility] [Catalytic activity/Vol] (20430) Comment: Performed By: #### GGT, ALKP ####[place] [address] [place], [place] [phone] alkaline phosphatase on 2020-01-10 ALP [Catalytic activity/Vol] 148 34-123 U/L High 0 01-10-2020 [facility] (51253) Comment: Performed By: #### GGT, ALKP ####[address] [phone] lipid panel, basic on 2019-12-16 Cholesterol [Mass/Vol] 160 <200 mg/dL Normal 020 [facility] (82681) Comment: Result Comment: <200 mg/dL, Desirable 200-239 mg/dL, Borderline hi gh >239 mg/dL, High Performed By: #### LIPB, CMP , HBA1C ####[place] [address] [phone] Cholesterol in HDL 57 >39 mg/dL Normal 12-16-2019 [facility] [Mass/Vol] (61672) Comment: Result Comment: 40-59 mg/dL, Acceptable >59 mg/dL, High: Negative ri sk factor for coronary heart disease <40 mg/dL, Low: Positive ris k factor for coronary heart disease Performed By: #### LIPB, CMP , HBA1C ####[place] [address] [phone] Cholesterol in LDL 72 <100 mg/dL Normal 12-16-2019 [facility] [Mass/Vol] [place] (53558) Comment: Result Comment: <100 mg/dL, Optimal 100-129 mg/dL, Near optimal/ above optimal 130-159 mg/dL, Borderline hi gh 160-189 mg/dL, High >189 mg/dL, Very high Secondary prevention optimal LDL Cholesterol levels are recommended to be < 70 mg/dL Performed By: #### LIPB, CMP , HBA1C ####[place] [address] [phone] Fasting Time 12 hrs Normal 12-16-2019 [facility] (24210) Comment: Performed By: #### LIPB, CMP , HBA1C ####[place] [address] [phone] LDL:HDL Ratio 1.26 <2.54 Normal 12-16-2019 [facility] (60935) Comment: Result Comment: Reference: 1. National Cholesterol Educ ation Program ATP III Guideline At-A-Glance Quick Desk Reference: National Heart, Lung, and Blood [place]. National Institutes of Health. 2001: NIH Publication No. 01-3305. 2. An International Atherosc lerosis Society position paper: global recommendations for the management of dyslipidemia: executive summary, Atherosclerosis. 2014: 232(2):410-413. Performed By: #### LIPB, CMP , HBA1C ####[place] [address] [phone] Non HDL Cholesterol 103 <130 mg/dL Normal 12-16-2019 [facility] (32275) Comment: Result Comment: <130 mg/dL, Optimal 130-159 mg/dL, Near optimal/ above optimal 160-189 mg/dL, Borderline hi gh 190-219 mg/dL, High >219 mg/dL, Very high Secondary prevention optimal non HDL Cholesterol levels are recommended to be < 100 mg/dL Performed By: #### LIPB, CMP , HBA1C ####[place] [address] [phone] TC:HDL Ratio 2.81 <5.10 Normal 12-16-2019 [facility] (14478) Comment: Performed By: #### LIPB, CMP , HBA1C ####[address] [place] [address] [phone] Triglyceride [Mass/Vol] 156 <150 mg/dL High 2019 [facility] (84544) Comment: Result Comment: <150 mg/dL, Normal 150-199 mg/dL, Borderline hi gh 200-499 mg/dL, High >499 mg/dL, Very high Performed By: #### LIPB, CMP , HBA1C ####[place] [address] [address] VLDL Cholesterol 31 <30 mg/dL High 12-16-2019 [facility] (88271) Comment: Performed By: #### LIPB, CMP , HBA1C ####[place] [address] [place] [address] hemoglobin a1c on 2 HbA1c (Bld) [Mass fraction] 151 mg/dL Normal [facility] (45012) Comment: Result Comment: eAG: (Estima jayna average glucose) is a calculated value from HgbA1c and is containers sales representative of the average blood glucose level in the last 2-3 month period. Performed By: #### LIPB, CMP , HBA1C ####[address] [place] [address] HbA1c (Bld) [Mass fraction] 6.9 4.3-5.6 % High [facility] (73231) Comment: Result Comment: [place] Carmel betes Association guidelines indicate that patients with HgbA1c in the range 5.7-6.4% are at increased risk for development of diabetes, and intervention by lifestyle modification may be beneficial. HgbA1c greater o r equal to 6.5% is considered diagnostic of diabetes. Performed By: #### LIPB, CMP , HBA1C ####[place] [address] [address] [place] [address] [phone] comp metabolic panel on 2019-12-16 Albumin [Mass/Vol] 4.4 3.9-4.9 g/dL Normal 12-16-2019 [facility] (05108) Comment: Performed By: #### LIPB, CMP , HBA1C ####[place] [address] [place] [address] ALP [Catalytic activity/Vol] 191 34-123 U/L High 0 12-16-2019 [facility] (98868) Comment: Performed By: #### LIPB, CMP , HBA1C ####[address] [address] [phone] ALT [Catalytic activity/Vol] 30 7-38 U/L Normal 0 12-16-2019 [facility] (10081) Comment: Performed By: #### LIPB, CMP , HBA1C ####[facility] [place] [address] [phone] Anion gap [Moles/Vol] 10 9-18 mmol/L Normal 12-16-19 20 [facility] (27280) Comment: Performed By: #### LIPB, CMP , HBA1C ####[place] [address] [place] [address] [phone] AST [Catalytic activity/Vol] 25 13-35 U/L Normal 0 12-16-2019 [facility] (67086) Comment: Performed By: #### LIPB, CMP , HBA1C ####[address] [place] [address] [phone] Bilirubin [Mass/Vol] 0.3 0.2-1.3 mg/dL Normal 0 [facility] (55147) Comment: Performed By: #### LIPB, CMP , HBA1C ####[place] [address] [place] [address] [phone] Calcium [Mass/Vol] 10.1 8.5-10.2 mg/dL Normal 12-16-2019 [facility] (25823) Comment: Performed By: #### LIPB, CMP , HBA1C ####[facility] [place] [address] [phone] Chloride [Moles/Vol] 106 97-105 mmol/L High 0 [facility] (06841) Comment: Performed By: #### LIPB, CMP , HBA1C ####[place] [address] [place] [address] [phone] CO2 [Moles/Vol] 25 22-30 mmol/L Normal 12-16-2019 [facility] (84857) Comment: Performed By: #### LIPB, CMP , HBA1C ####[facility] [address] [place] [address] [phone] Creatinine [Mass/Vol] 0.84 0.58-0.96 mg/dL Normal 12-16-19 [facility] (72508) Comment: Performed By: #### LIPB, CMP , HBA1C ####[facility] [address] [place] [address] [phone] eGFR- Amer. >60 Normal 12-16-2019 [facility] (92793) Comment: Performed By: #### LIPB, CMP , HBA1C ####[facility] [address] [place] [address] [phone] GFR/1.73 sq M predicted >60 mL/min/{1.73_m2} Normal 12-16-2019 [facility] among non-blacks MDRD [place] (64078) (S/P/Bld) [Vol rate/Area] Comment: Result Comment: eGFR [...] Performed By: #### LIPB, CMP , HBA1C ####[facility] [address] [place] [address] [phone] Glucose [Mass/Vol] 106 74-99 mg/dL High 12-16-2019 [facility] (01814) Comment: Result Comment: The [place] Diabetes Association (ADA) provides guidance for cutoff [...] of diabetes. Reference: Standards of [facility] in Diabetes 2016, [place] Diabetes Association. Diabetes Care. 2016.39(Suppl 1). Performed By: #### LIPB, CMP , HBA1C ####[place] [address] [place] [address] [phone] Potassium [Moles/Vol] 4.6 3.7-5.1 mmol/L Normal 12-16-19 [facility] (02892) Comment: Performed By: #### LIPB, CMP , HBA1C ####[address] [place] [address] [phone] Protein [Mass/Vol] 7.8 6.3-8.0 g/dL Normal 12-16-2019 [facility] (87920) Comment: Performed By: #### LIPB, CMP , HBA1C ####[place] [address] [phone] Sodium [Moles/Vol] 141 136-144 mmol/L Normal 12-16-2019 [facility] (39685) Comment: Performed By: #### LIPB, CMP , HBA1C ####[place] [address] [phone] Urea nitrogen [Mass/Vol] 15 7-21 mg/dL Normal 12-16 [facility] (36699) Comment: Performed By: #### LIPB, CMP , HBA1C ####[address] [place] [address] [phone] progress on 2019-11 PROGRESS HNO ID: [id number] Normal 11-20-2019 [facility] Author: Lesvia Ge) [facility] (33654) Service: ? Author Type: Nurse Practitioner Type: [...] 2019-11-20 CNOV Office Visit (UCWSTR) Normal 11-20-[address] [place] [address] [facility] ABE STEVENSON ([id number]) 1960 [facility] Time Provider Department ([id number]) 11/20/19 12:15 PM LESVIA HURTADO ([facility]) [facility] During your visit today, we recorded [...] * *Final Report* * * Normal 10-19-2019 [place] RIB/OBL/CHST R DATE OF EXAM: Oct 19 2019 3:30PM Clinic WOX 5244 - XR RIB/CHST 3V AP RIB/OBL/CHST R / [id number] [place] PROCEDURE REASON: multiple diagnoses (75413) * * * * Physician Interpretation * [...] or lytic lesion. IMPRESSION: No acute abnormality Loan Closer: PSCB Transcribe Date/Time: Oct 19 2019 9:33P Dictated by : CAITLIN RUSS MD This examination was interpreted and the report reviewed and electronically signed by: CAITLIN RUSS MD on Oct 19 2019 9:34PM EST [id number] progress on 2019-10 PROGRESS HNO ID: [id number] Normal 10-19-2019 [facility] Author: Cyndi Bullard (Rt) [place] (03384) Service: ? Author Type: Manager Publishing Type: Progress Notes Filed: 10/19/2019 3:31 PM [...] 19, 2019 3:18 PM PROGRESS HNO ID: [id number] Normal 10-19-2019 [facility] Author: [facility] ([id number]) Service: ? Author Type: Nurse Practitioner Type: [...] Is staying in a alf with the [employer] right now be cause she got sick from having a spider bite when she lived [facility] [place] [facility]. Her family is not reacting well to this. Her son has been put in skilled nursing for 10 years to life for raping a 12 year old special needs girl. S tates she is walking around feeling like she is just in a continuous nigh tmare. Is feeling very depressed and like she is walking around in a s urreal nightmare. Went to [facility] about a mo nth ago and completed the intake process. She is waiting for a call to [facility] meeting with a counselor. Dr. Rogers started [...] history of premature coronary artery disease mother [place] at 50 - History of colon polyps 03/07/2013 - HTN (hypertension) - Hyperlipemia - Obesity - Rosacea - Seborrheic dermatitis - Vitamin D deficiency PAST SURGICAL HISTORY Procedure Laterality Date - COLONOSCOPY AND POLYPECTOMY 03/07/13 repeat due 2018, tubular adenoma - PAST SURGICAL HISTORY OF cyst removed from uterus while - TOTAL HIP JOINT REPLACEMENT Left 02/2018 [facility] - TOTAL HIP JOINT REPLACEMENT [...] Onset - Coronary Artery Disease Mother 50 [place] - Diabetes Mother 40 age 68 - [...] tubing. Pressure set to 22/16 cm H2O. Nevro. acetaminophen (TYLENOL EXTRA STRENGTH) 500 mg tablet [...] this point. She is living in a [facility] alf, her family is very unsupportive, and her son is in usp. States she walks around as if in [...] was spent in education and co unseling [id number] with patient. This note was completed with [employer] dictation software. Note was reviewed for accuracy. There may be minor misspellings or gr ammar miscues with [employer] Dictation. To ER if develops chest pain, shortness of breath, or severe worsening of symptoms. Discussed risks, benefits, alternatives, and potential side effects of medications. Patient expressed understanding and agreed with the plan. Michele Acuna APRN.WET WHEELER [address] [place] [address] cnov on 2019-10-19 CNOV Office Visit (FAMPWS) Normal 10-19-20 [address] [place] [facility] ABE STEVENSON ([id number]) 1960 [facility] Date Time Provider Department ([id number]) 10/19/19 2:40 PM MICHELE ACUNA (ARNOLD) FAMPWS [...] Is staying in a alf with the [facility] [employer] right now because she got sick [place]. Her family is not reacting well to this. Her son has been put in skilled nursing fo r 10 years to life for [...] history of premature coronary artery disease mother [place] at 50 - History of colon polyps 03/07/2013 - HTN (hypertension) - Hyperlipemia - Obesity - Rosacea - Seborrheic dermatitis - Vitamin D deficiency PAST SURGICAL HISTORY Procedure Laterality Date - COLONOSCOPY AND POLYPECTOMY 03/07/13 repeat due 2018, tubular adenoma - PAST SURGICAL HISTORY OF cyst removed from uterus while - TOTAL HIP JOINT REPLACEMENT Left 02/2018 [facility] - TOTAL HIP JOINT REPLACEMENT [...] Onset - Coronary Artery Disease Mother 50 [place] - Diabetes Mother 40 age 68 - [...] very unsupportive, and her son is in usp. States she walks around as if in [...] V60.0, ICD10: Z59.0 See above. Michele Acuna APRN.WET WHEELER Greater than 50% of this visit was spent in education and co unseling tcxv-eb-nptl with patient. This note was completed with [employer] software. Note was reviewed for accuracy. There may be minor misspellings or gramm ar miscues with [employer] Dictation. To ER if develops chest pain, shortness of breath, or severe worsening of symptoms. Discussed risks, benefits, alternatives, and potential side effects of medications. Patient expressed understanding and agreed with the plan. Michele Acuna APRN.WET WHEELER [address] [place] [address] Michele Acuna APRN.CNP 10/19/2019 3:04 PM Signed Have your labs drawn in the morning, when you are fasting. Black coffee and water are ok. You can get your xray today in urgent care. I will call with results once I receive them, in the next da y or two. We can discuss Byetta at that time. Referring Provider: CARLY ROGERS [[id number]] Allergies As of Date: 10/19/2019 Noted Allergy [...] 1 XR RIBS/CHEST 3V AP RIB/OBLS/CXR RT [[id number]] Order #: [id number] FUTURE azithromycin (ZITHROMAX Z-DIANA) 250 mg tabletTake [...] on 2019-09-28 [facility] Letter Text Normal 09-28-2019 [facility] ([id number]) cnco on 2019-09-21 [facility] Letter Text Normal 09-21-2019 [facility] ([id number]) trichomonas prep on 2019-09-19 Trichomonas Prep Sp. Request/Comment: - Swab Beatrice l 09-19-2019 [facility] Smear Result - Negative for Trichomonas vaginalis antigen This test was developed and its performance characteristics determined by [facility]'s [facility] [place] ([id number]) [place] ([facility]). It has not been cleared or approved by the FDA. [facility] is regulated under CLIA as qualified to perform high complexity testing. This test is used for clinical purposes. It should not be regarded as investigational or for research. Comment: Performed By: #### TRICHO ## ## [facility] Laboratorie s [address] [place], [place] [address] progress on 2019-09 PROGRESS HNO ID: [id number] Normal 09-19-2019 [facility] Author: Eliana Ramirez [facility] ([id number]) Service: ? Author Type: ? Type: Progress [...] 19, 2019 2:18 PM PROGRESS HNO ID: [id number] Normal 09-19-2019 [facility] Author: Leticia Espana ([id number]) Service: ? Author Type: Investment Analyst Type: Progress Notes Filed: 09/19/2019 4:45 PM [...] history of premature coronary artery disease mother [place] at 50 - History of colon polyps [...] - TOTAL HIP JOINT REPLACEMENT Right 06/2018 [facility] FAMILY HISTORY Problem Relation Age of Onset - Coronary Artery Disease Mother 50 [place] - Diabetes Mother 40 age 68 - [...] genitalia normal, normal Bartholin's glands , urethra, Cyrus's glands, no vulvar lesions, no cervical lesions, [...] or sooner as needed Leticia Millan APRN.CNM [facility] screening on 04-10-04 [facility] SCREENING * * *Final Report* * * Normal [facility] DATE OF EXAM: Sep 19 2019 2:16PM [place] ([id number]) [facility] 0581 - [facility] SCREENING / PROCEDURE REASON: Screening for breast cancer * * * * Physician Interpretation * * * * RESULT: #[id number] - [facility] SCREENING BILATERAL DIGITAL SCREENING MAMMOGRAM [...] exams dated: 07/18/2014 mammogram and mammogram - [facility]. The tissue of bot h breasts is predominantly fatty. No significant masses, calcifications, or other findings are seen in either breast. There has been no significant interval change. IMPRESSION: NEGATIVE There is no mammographic evidence of malignancy. A 1 year ga reening mammogram is recommended. Dalia crowell/loulou:09/19/2019 15:42:46 Shop Worker(s): RT Alek(R)(M), [facility] letter sent: Normal over 40 Mammogram [...] Medicine, and Medical/Surgical Oncology, the [facility] [facility] has carefully reviewed the [...] providers when to sto p screening mammograms. Loan Closer: Loulou Transcribe Date/Time: Sep 19 2019 2:16P Dictated by: DALIA JONES MD This examination was interpreted and the report reviewed and electronically signed by: DALIA JONES MD on Sep 19 2019 3:42PM EST [id number] gc/chlamydia amplif on 2019-09-19 Chlamydia Amplif Negative for Chlamydia Normal 09-19-2019 [facility] trachomatis by Pasha chris ([id number]) amplification. Comment: Performed By: #### GCCT #### [facility] Laboratorie s [address] [place] [address] GC Amplification Negative for Neisseria Normal 09-19-2019 [facility] gonorrhoeae by Pasha chris ([id number]) amplification. Comment: Performed By: #### GCCT #### [facility] [address] [place] [address] GC/Chlam Amp Source Cervix Normal 09-19-2019 [facility] ([id number]) Comment: Performed By: #### GCCT #### [facility] Labor[facility] [address] [place] [id number] cytology on 2019-09 CYTOLOGY Specimen originated from [facility] Normal 09-19-2019 [place] Specimen #: [id number] Clinic Submitting Physician: LETICIA MILLAN CNM [place] SPECIMEN SUBMITTED ( [id number]) A: CERVICAL, SCREENING, FLUID FINAL DIAGNOSIS A. [...] STAINS A: CERVICAL, SCREENING, FLUID THIN PREP CUT OFF SAW TENDER METAL Date of Report: 09/27/2019 Date of Procedure: 09/19/2019 Date of Receipt: 09/21/2019 Submitted by: LETICIA MILLAN CNM Location: [facility] Diagnostic interpretation performed at [facility], [address] [place] [address], [place] [address]. CLIA Number: [id number] The Pap Smear is a screening test for cervical cancer. False negative results occur with all screening tests, emphasizing the need for rescreening at recommended intervals, and clinical correlati on. cnov on 2019-09-19 CNOV Office Visit (WOOB) Normal 09-19-2019 [facility] ABE STEVENSON ([id number]) 1960 [address] [facility] Date Time Provider Department ([id number]) 09/19/19 1:15 PM LETICIA MILLAN ([facility]) WOOB During your visit today, we [...] history of premature coronary artery disease mother SC at 50 - History of colon polyps [...] - TOTAL HIP JOINT REPLACEMENT Right 06/2018 [place] FAMILY HISTORY Problem Relation Age of Onset - Coronary Artery Disease Mother 50 SC - Diabetes Mother 40 age 68 - [...] genitalia normal, beatrice l Bartholin's glands, urethra, Cyrus's glands, no vulvar lesions, no cervical lesions, [...] Obesity, Class III, BMI 40-49.9 (morbid obesity) ([facility]) - ICD9: 278.01, ICD10: E66.01 4. [...] Leticia Millan APRN.CNM Referring Provider: CARLY ROGERS [[id number]] Allergies As of Date: 09/19/2019 Noted Allergy Reaction ENALAPRIL 01/17/2013 3 - Cough Date Reviewed: 09/19/2019 Reviewed by: Claudia Castellanos Ma - Fully Assessed Reason for Visit: Yearly Exam [187] Primary Visit Diagnosis:Encounter for gynecological examinat ion (general) (routine) without abnormal findings [Z01.419] Other Visit Diagnoses:Pap smear for cervical cancer screenin g [Z12.4] Obesity, Class III, BMI 40-49.9 (morbid obesity) ([facility]) [E66.01] Vaginal discharge [N89.8] Order(s):PAP FLUID CERVICAL SCREENING [9051329] Order #: [id number] GC/CHLAMYDIA DNA DET [SQGCCAMP] Order #: [id number] BACT/SHERRILL VAG GRAM STAIN [SQBVCNSM] Order #: [id number] TRICHOMONAS PREP [SQTRICHO] Order #: [id number] Prescriptions as of 09/19/2019 Sig: COMPOUNDED PRESCRIPTION [...] 09/19/19 cnco on 2019-09-19 CNCO HNO ID: [id number] Normal 09-19-2019 [facility] Author: Mammography Coordinator [place] ([id number]) Service: ? Author Type: Physician Type: Letter Filed: 09/20/2019 11:34 PM Note Text: September 19, 2019 PID: [id number] Abe Stevenson [address] [place] [address] Dear Ms. Stevenson, We are pleased to [...] report will be kept on file at [facility] as part of your permanent medical record and are available f or your continuing care. Thank you for allowing us to help in meeting your health car e needs. Sincerely, Dr. Jones Interpreting Radiologist [facility] (Normal over 40) bact/cand vag grm st on 2019-09-19 Bact/Cand Vag Grm Sp. Request/Comment: - Swab Norm al 09-19-2019 [facility] ([id number]) Smear Result - BACTERIAL VAG INOSIS RESULT: Stain results indicate mixed morphotypes consistent with transition from normal vaginal marquise. No Polymorphonuclear Leukocytes Few Epithelial cells No Yeast observed Comment: Performed By: #### BVCNSM ## ## [facility] [address] [place], [place] [address] progress on 2019-08 PROGRESS HNO ID: [id number] Normal 08-24-2019 [facility] Author: Carly Rogers [place] ([id number]) Service: ? Author Type: Physician Type: Progress [...] Cardio, Dr. Carrero. 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 2 year degree in [employer] design. 1 son Moved from [place] Used to swim daily EXAM: BP 130/80 [...] 65 Completed Data reviewed Hospital reports from [facility] 08/06/19-08/09/19 ASSESSMENT/PLAN: 1. Essential hypertension - [...] Histories in dependently gathered by the clinical credit support counselor and the remaining scr ibed note accurately describes my personal service to the patient Carly Rogers MD The documentation for this note was completed by Adriana chris Ma acting as scribe for Carly Rogers MD. August 24, 2019 9:43 AM . cnov on 2019-08-24 CNOV Office Visit (FAMPWS) Normal 08-24-20 19 [facility] ABE STEVENSON ([id number]) 1960 [facility] Date Time Provider Department ([id number]) 08/24/19 10:00 AM CARLY ROGERS During your visit today, we recorded the following informati on about you: Temperature Pulse Respiration Blood pressure 97.7 degrees 74/minute 18/minute 130/80 Weight 105.2 kg Carly Rogers MD 08/24/2019 11:27 AM Signed Chief Complaint Patient presents with: Hospital Follow Up Imm/Inj: Flu Vaccine HPI Abe Stevenson is a 58 year old female who presents here t [facility] for hospital follow up. Pt is not a TCM as she was scheduled outside of the 14 day [facility] frame. Was unable to reach pt to reschedule sooner. Had a pacemaker placed, is following with Cardio, Dr. Carrero. Was admitted to the [facility] on 08/06/19 till 08/09/19 for dizziness [...] history of premature coronary artery disease mother SC at 50 - History of colon polyps 03/07/2013 - HTN (hypertension) - Hyperlipemia - Obesity - Rosacea - Seborrheic dermatitis - Vitamin D deficiency Previous Surgical History PAST SURGICAL HISTORY Procedure Laterality Date - COLONOSCOPY AND POLYPECTOMY 03/07/13 repeat due 2017, tubular adenoma - PAST SURGICAL HISTORY OF cyst removed from uterus while - TOTAL HIP JOINT REPLACEMENT Left 02/2018 [facility] - TOTAL HIP JOINT REPLACEMENT Right 06/2018 [facility] Family History FAMILY HISTORY Problem Relation Age of Onset - Colon Cancer Father 55 age 58 - Coronary Artery Disease Mother 50 SC - Diabetes Mother 40 age 68 - [...] on file Occupational History 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 2 year degree in [employer] design. 1 son Moved from [place] Used to swim daily EXAM: BP 130/80 [...] 65 Completed Data reviewed Hospital reports from [facility] 08/06/19-08/09/19 ASSESSMENT/PLAN: 1. Essential hypertension - [...] Histories in dependently gathered by the clinical credit support counselor and the remaining scr ibed note accurately [...] QUADRIVALENT AGE 3 YRS PLUS + IM [[id number]] Order #: [id number] losartan (COZAAR) 50 mg tabletTake 1 tablet [...] Provider Location 06-25-2020 - Documentation External Provider [facility] 06-25-2020 procedure 12-21-2016 - Emergency department Pain in right INC GEMS NO Facili ty:[facility] 12-21-2016 patient visit hip REFERRING [facility] 07-24-2020 - Letter encounter [facility]arly [facility] 07-24-2020 [place] 07-02-2020 - Patient encounter External Provider [facility] 07-02-2020 procedure 06-25-2020 Patient encounter External Provider Rafia [facility] procedure 08-20-2020 - Refill Cramp Carly Manuel [facility] icine 08-20-2020 [place] Comment: Refill Request 07-30-2020 - 07-30-2020 Refill Cough Carly Manuel [facility] [place] Comment: Refill Request 07-02-2020 Results Only External Provider External-N [facility] Procedures Procedure Name Date Provider Location EXTERNAL IM[facility]-02-[facility][id number][facility] Mammography 09-19-2019 - 09-19-2019 [facility] ([id number]) Colonoscopy 03-07-2013 - 03-07-2013 [facility] ([id number]) Plan of Treatment Plan Description Date Location PAP TESTING PAP TESTING 09-19-2024 - [facility] 09-19-2024 ([id number]) ANNUAL PCP TEAM CHRONIC ANNUAL PCP TEAM CHRONIC 04-19-2021 - [facility] DISEASE VISIT DISEASE VISIT 04-19-2021 ([id number]) URINE ALBUMIN:CREATININE URINE ALBUMIN:CREATININE 04-16-2021 - [facility] RATIO RATIO 04-16-2021 ([id number]) LDL CHOLESTEROL LDL CHOLESTEROL 12-16-2020 - [facility] 12-16-2020 ([id number]) HBA1C HBA1C 10-16-2020 - [facility] 10-16-2020 ([id number]) MAMMOGRAM MAMMOGRAM 09-19-2020 - [facility] 09-19-2020 ([id number]) INFLUENZA (#1) INFLUENZA (#1) 2020 - [facility] 07-17-2020 ([id number]) DIABETIC FOOT EXAM DIABETIC FOOT EXAM 04-19-2020 - [facility] 04-19-2020 ([id number]) HPV TESTING HPV TESTING 07-11-2018 - [facility] 07-11-2018 ([id number]) COLONOSCOPY COLONOSCOPY 03-07-2018 - [facility] 03-07-2018 ([id number]) COLORECTAL CANCER COLORECTAL CANCER 03-07-2018 [facility] inic SCREENING,SEE MODIFIER SCREENING,SEE MODIFIER ([phone]) DILATED RETINAL EXAM DILATED RETINAL EXAM 11-12-2017 - [facility] 11-12-2017 ([id number]) SHINGRIX VACCINE (1 of SHINGRIX VACCINE (1 of 2010 - [facility] 2) 2) 2010 (01178) DTAP,TDAP,TD (1 - Tdap) DTAP,TDAP,TD (1 - Tdap) 1979 - [facility] 1979 (65083) BP CONTROLLED (<130/80) BP CONTROLLED (<130/80) 1978 - [facility] 1978 (79306) HEPATITIS C SCREENING HEPATITIS C SCREENING 1978 - [facility] 1978 (60777) HIV SCREENING HIV SCREENING 1978 - [facility] 1978 ([id number]) no information [facility] ([id number]) Immunizations Vaccine Notes Status Date Location Influenza Vaccine, influenza virus (completed) 08-03-2013 - [facility] Split-Non Spec vaccine, unspecified 08-03-2013 (4419 [id number]) formulation Influenza Seasonal influenza, injectable, (completed) 08-24-2019 - [facility] Inj Quadrivalent Age quadrivalent, contains 08-24-2019 (52615) 3+ preservative Influenza Seasonal influenza, injectable, (completed) 10-11-2018 - [facility] Inj Quadrivalent Age quadrivalent, contains 10-11-2018 (21106) 3+ preservative Influenza Seasonal influenza, injectable, (completed) 10-25-2015 - [facility] Inj Quadrivalent Age quadrivalent, contains 10-25-2015 (71083) 3+ preservative Influenza Seasonal influenza, seasonal, (completed) 07-31-2014 [facility] Inj Age 3+ injectable 07-31-2014 (34522) Pneumococcal-13 Vac pneumococcal conjugate (completed) 09-06-2014 - [facility] Conjugate vaccine, 13 valent 09-06-2014 (66332) Pneumovax pneumococcal (completed) [facility], 03-12-2015 (441 95) 23 valent Influenza Recombinant Seasonal, trivalent, (completed) 08-31-2016 - [facility] Seasonal Inj PresFree recombinant, injectable 08-31-20 16 (11010) influenza vaccine, preservative free Payers Payer Name Policy Number Location EDDIE LEGER O [id number] [facility] ([id number]) [employer] MEDICARE [id number] [facility] (44 195) The following information is from the original human readable contentNo Payer Records Found Social History Type Social History Date Location Description Tobacco smoking status Current every day smoker 04-19-2020 - [facility] NHIS 04-19-2020 (46225) History of tobacco use Cigarette Smoker [facility] ([id number]) Cigarettes smoked 04-19-2020 - [facility] ic current (pack per day) 04-19-2020 (56890) - Reported Tobacco use and Never used 04-19-2020 - [facility] exposure 04-19-2020 (38549) Alcohol intake Current non-drinker of 04-19-2020 - [facility] alcohol (finding) 04-19-2020 (61870) Tobacco Comment 10 cigarettes per day 04-19-2019 - [facility] 04-19-2019 (49444) Alcohol Comment 2 drinks/month 05-25-2014 - [facility] 05-25-2014 (47689) Sex Assigned At Not on file [facility] ([id number]) The following information is from the original [...] premature coronary artery disease 04/17/2020 Overview: mother SC at 50 Arthritis, hip 04/17/2020 Problem Noted Date Resolved Date Peripheral polyneuropathy 07/09/2017 04/17/2020 Skin lesion, superficial 06/15/2015 04/17/2020 Right leg pain 06/07/2015 04/17/2020 Abdominal pain, unspecified site 05/12/2015 020 Anal fissure 07/31/2014 04/17/2020 History of colon polyps 03/07/2013 04/17/2020 Family history of colon cancer 0 Overview: Father 55 Family history of premature coronary artery disease 04/17/2020 Overview: mother SC at 50 Arthritis, hip 04/17/2020 Problem Noted Date Resolved Date Peripheral polyneuropathy 07/09/2017 04/17/2020 Skin lesion, superficial 06/15/2015 04/17/2020 Right leg pain 06/07/2015 04/17/2020 Abdominal pain, unspecified site 05/12/2015 020 Anal fissure 07/31/2014 04/17/2020 History of colon polyps 03/07/2013 04/17/2020 Family history of colon cancer 0 Overview: Father 55 Family history of premature coronary artery disease 04/17/2020 Overview: mother SC at 50 Arthritis, hip 04/17/2020 Assessments Diagnosis Cough Diagnosis Muscle cramps Cramp of limb Reason for Referral Status Reason Specialty Diagnoses / Procedures Referred By C ontact Referred To Contact Closed Diagnoses Muscle cramps Carly Rogers [address] [place], [place] [address] Phone: Additional Source Comments FOR RECORDS PERTAINING [...] BE BASED ON THE PRIMARY CLINICAL RECORDS. [facility] provides no warranty or guarantee of the accuracy or completeness of information in this document. UNRECOGNIZED CONTENT PROVIDED BELOW FOR UNRECOGNIZED SECTION INFORMATION SOURCE DATE CREATED AUTHOR AUTHOR'S COREYDOREENO N 05/12/2018 [facility] DATE CREATED AUTHOR AUTHOR'S ORGANIZATIO N 08/20/2020 [facility] UNRECOGNIZED CONTENT PROVIDED BELOW FOR UNRECOGNIZED SECTION Source Comments In the event this information is protected by the Federal Confidentiality of Alcohol and Drug Abuse Patient Records regulations: The Federal rules restrict any use of the information to criminally investigate or prosecute any alcohol or drug abuse patient.[facility] the event this information is protected by the Federal Confidentiality of Alcohol and Drug Abuse Patient Records regulations: The Federal rules restrict any use of the information to criminally investigate or prosecute any alcohol or drug abuse patient.[facility] Center[facility] the event this information is protected by the Federal Confidentiality of Alcohol and Drug Abuse Patient Records regulations: The Federal rules restrict any use of the information to criminally investigate or prosecute any alcohol or drug abuse patient.[facility] Center[facility] the event this information is protected by the Federal Confidentiality of Alcohol and Drug Abuse Patient Records regulations: The Federal rules restrict any use of the information to criminally investigate or prosecute any alcohol or drug abuse patient.[facility] Center[facility] the event this information is protected by the Federal Confidentiality of Alcohol and Drug Abuse Patient Records regulations: The Federal rules restrict any use of the information to criminally investigate or prosecute any alcohol or drug abuse patient.[facility] UNRECOGNIZED CONTENT PROVIDED BELOW FOR [...]
--- OUTSIDE RECORDS SUMMARY | 2020-08-28 16:22 | XMS RPT_ITS | CCD ---
:1960 External Reference #:[id number] Author Organization [employer] Care Team Providers Name Role Phone [facility] Unavailable Unavailable NO REFERRING DR Mcdermott Unavailable DENISE SEGURA Unavailable Unavailable Carly Rogers Primary Care Provider Allergies Reported Allergen Reaction(s) Severity Date of Onset Location enalapril Translations: [ Cough 01-17-2013 - [facility] ENALAPRIL] System Reposito ry Medications Medication Name Sig Date Prescriber Location Acetaminophen acetaminophen (TYLENOL 01-29-2017 [facility] EXTRA STRENGTH) [address] (4419 5) tablet Indications: Chronic pain of left knee , Pain in right hip Take 1 tablet by mouth every 6 hours as needed for Pain. 120 tablet 2 01/29/2017 Active Comment: Take 1 tablet by mouth every 6 hours as needed for Pain. Amitriptyline amitriptyline (ELAVIL) 06-19-2020 Carly [address] [facility] 10 mg tablet (36517) Indications: Depression, major, recurrent, mild (HCC) Take 1 tablet by mouth daily at bedtime. 30 tablet 5 06/19/2020 Active Comment: Take 1 tablet by mouth daily at bedtime. amLODIPine amLODIPine (NORVASC) 03-26-2020 Carly Manuel [facility] mg tablet Indications: (4419 5) Essential hypertension Take 1 tablet by mouth once daily. 30 tablet 03/26/2020 Active Comment: Take 1 tablet by mouth once daily. atorvastatin atorvastatin (LIPITOR) 05-21-2020 Carly Manuel [facility] 10 mg tablet (55058) Indications: Mixed hyperlipidemia Take 1 tablet by mouth once daily. 30 tablet 11 05/21/2020 Active Comment: Take 1 tablet by mouth once daily. benzonatate benzonatate (TESSALON 07-30-2020 Carly Manuel [facility] PERLMAMI) 100 mg capsule (4419 5) Indications: Cough Take 1 capsule by mouth three times daily as needed for Cough. 30 capsule 2 07/30/2020 Active benzonatate (TESSALON 03-23-2020 - [facility] 100 mg capsule 07-30-2020 (20844) Indications: Cough Take 1 capsule by mouth three times daily as needed for Cough. 30 capsule 2 03/23/2020 07/30/2020 Discontinued Comment: Take 1 capsule by mouth thre e times daily as needed for Cough. Cephalexin cephALEXin (KEFLEX) 500 mg 08-25-2019 [facility] Provider [facility] (48799) capsule EVERY 6 HOURS 0 08/25/2019 Active Comment: EVERY 6 HOURS COMPOUNDED COMPOUNDED 09-16-2019 Carly [address] [facility] PRESCRIPTION PRESCRIPTION [employer] (80519) AirCurve 10 S VPAP machine with heated humidity and heated tubing. Pressure set to 22/16 cm H2O. [employer]. 0 09/16/2019 Active COMPOUNDED PRESCRIPTION [employer] 09-16-2019 Carly [facility] (64912) AirCurve 10 S VPAP machine with heated humidity and heated tubing. Pressure set to 22/16 cm H2O. [employer]. 0 09/16/2019 Active COMPOUNDED PRESCRIPTION [employer] 09-16-2019 Carly [facility] (54220) AirCurve 10 S VPAP machine with heated humidity and heated tubing. Pressure set to 22/16 cm H2O. [employer]. 0 09/16/2019 Active COMPOUNDED PRESCRIPTION [employer] 09-16-2019 Carly [facility] (75767) AirCurve 10 S VPAP machine with heated humidity and heated tubing. Pressure set to 22/16 cm H2O. [employer]. 0 09/16/2019 Active COMPOUNDED PRESCRIPTION [employer] 09-16-2019 Carly [facility] (19390) AirCurve 10 S VPAP machine with heated humidity and heated tubing. Pressure set to 22/16 cm H2O. [employer]. 0 09/16/2019 Active Comment: [employer] AirCurve 10 S VPAP ma elsa with heated humidity and heated tubing. Pressure set to 22/16 cm H2O . [employer]. cyclobenzaprine cyclobenzaprine 08-24-2019 - Carly Manuel [place] (FLEXERIL) 10 mg 08-20-2020 [facility] (441 95) tablet Indications: Muscle cramps Take 1 tablet by mouth three times daily as needed. 30 tablet 5 08/20/2020 Active Comment: Take 1 tablet by mouth three times daily as needed. dulaglutide dulaglutide (TRULICITY) 04-19-[address]arly [address] [facility] 0.75 mg/0.5 mL pnij (69408) Indications: Type 2 diabetes mellitus without complication, without long-term current use of insulin (HCC) Inject 0.75 mg subcutaneously one time a week. Inject dose once per week. Discard Pen After 4 Pen 5 04/19/2020 Active Comment: Inject 0.75 mg subcutaneousl y one time a week. Inject dose once per week. Discard Pen After telmisartan telmisartan (MICARDIS) 05-23-2020 Carly Manuel [facility] 40 mg tablet Take 1 (57151) tablet by mouth once daily. 30 tablet 5 05/23/2020 Active Comment: Take 1 tablet by mouth once daily. Problems Active Problems Category Problem Name Status Date Location Cardiac dysrhythmias Sick sinus syndrome Active 08-24-2019 - [facility] (01496) Conduction disorders Cardiac pacemaker in Active 08-24-2019 - [facility] situ (37500) Diabetes mellitus Type 2 diabetes Active 03-29-2013 - [place] [facility] without complication mellitus without [facility] complications (05225) Disorders of lipid Hyperlipidemia, Active 03-29-2013 - [place] [facility] metabolism unspecified [facility] (21579) Essential hypertension Essential (primary) Active 03-29-2013 - [facility] hypertension [facility] (84680) Mood disorders Bipolar disorder, Active 12-21-2016 - [place] [facility] (39833) Nutritional deficiencies Vitamin D deficiency Active [facility] (12176) Osteoarthritis Unilateral primary Active 09-06-2015 - [place] [facility] osteoarthritis, right Health System hip (40827) Other connective tissue 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-2016 - [facility] disease artificial hip joint Health System (07879) Other connective tissue Cramp Active [facility] disease (40303) Other inflammatory Rosacea Active 03-28-2013 - [facility] condition of skin (42634) Other lower respiratory Cough Active [facility] disease (81893) Other nervous system Other chronic pain Active 12-21-2016 - [facility] (60349) Other nervous system Sural neuropathy Active 06-02-2015 - [facility] disorders (88495) Other nutritional; Morbid obesity Active 09-19-2019 - [facility] endocrine; and metabolic (44 195) disorders Other nutritional; Obesity Active 03-29-2013 - [facility] endocrine; and metabolic (44 195) disorders Residual codes; Obstructive sleep apnea Active 08-24-2019 - [facility] unclassified syndrome (94822) Schizophrenia and other Schizophrenia, Active 12-21-2016 - [facility] psychotic disorders unspecified Health S [facility] (77566) Past or Other Problems Category Problem Name Status Date Location Other inflammatory Seborrheic Completed 03-28-2013 - [facility] condition of skin dermatitis (21288) Other non-traumatic Pain in right hip Completed 12-21-2016 - [facility] joint disorders [facility] m (54160) Other screening for Magnetic resonance Completed 07-09-2017 - [facility] suspected conditions imaging of brain (44 195) (not mental disorders abnormal or infectious disease) Results Result Name Value Range Unit Interpretation Flag Date Location obsolete on 2020-08 OBSOLETE Refill (FAMPWS) Normal 08-20-2020 [facility] ABE STEVENSON ([id number]) 1960 [facility] Time Provider Department (74314) 08/20/20 CARLY ROGERS During your visit today, [...] Normal 07-30-2020 Jose [facility] [place] ABE Auguste ([id number]) 1960 [facility] Date Time Provider Department (86404) 07/30/20 CARLY ROGERS FAMPWS During your visit [...] 2020-07-24 [facility]CO Letter Text Normal 07-24-2020 [facility] (76252) obsolete on 2020-06 OBSOLETE Refill (FAMPWS) Normal 06-19-2020 Jose Rafael lagunas [facility] ABE STEVENSON ([id number]) 1960 [facility] Date Time Provider Department (77567) 06/19/20 CARLY ROGERS During your visit today, we recorded the following informati on about you: Carly Rogers MD 06/19/2020 4:12 PM Signed OK to refill as ordered MD Adirana Lance Ma 06/19/2020 4:28 PM Signed The [...] on 2020-06-15 CNPN Telephone (FAMPWS) Normal 06-15-2020 [place] [facility] ABE STEVENSON ([id number]) 1960 Kade[place] BOURNE [place] Date Time Provider Department (86740) 06/15/20 CARLY ROGERS During your visit today, we recorded the following informati on about you: Macie Lloyd MA 06/15/2020 8:42 AM Signed Received forms for pt from [facility], requesting verification of disability. Please review forms, complete, then fax back to [phone]. Macie Rogers MD 06/18/2020 5:11 PM Signed [...] Status:Closed by ADRIANA HAIDER MA on 06/19/20 arnodln on 2020-06-11 CNPN Telephone (FAMPWS) Normal 06-11-2020 [facility] ABE STEVENSON ([id number]) 1960 [place] Date Time Provider Department (58411) 06/11/20 CARLY ROGERS During your visit today, we recorded the following informati on about you: Bea Santana RN 06/11/2020 2:44 PM Signed Archana from [facility] tayla led, verified pt by [...] on 2020-05-23 CNPN Telephone (FAMPWS) Normal 05-23-2020 [place] [facility] BAE STEVENSON ([id number]) 1960 [facility] Date Time Provider Department (51239) 05/23/20 CARLY ROGERS During your visit today, we recorded the following informati on about you: Carley Whiting PACO 05/23/2020 2:50 PM Signed today 162/88 pulse 88 slight headache in the morning. Headache relieved with Tylen ol. Taking amlodipine every morning . 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 Macie Lloyd MA Allergies As of [...] Refill (FAMPWS) Normal 05-21-2020 Jose Rafael lag[place] [facility] GRAHAMABE FALK ([id number]) 1960 [facility] Date Time Provider Department (69660) 05/21/20 CARLY ROGERS During your visit today, [...] on 2020-05-09 CNPN Telephone (FAMWS) Normal 05-09-2020 [place] [facility] ABE STEVENSON ([id number]) 1960 [place] Date Time Provider Department (76480) 05/09/20 CARLY ROGERS During your visit today, we recorded the following informati on about you: Renate Denis RN 05/09/2020 2:11 PM Signed Nurse Kassandra calls from [facility]. Did woun d care on [...] review and advise. Please call Kassandra at [phone] with any new orders. DORINA Tracey MD [...] 2020-05-04 CNPN Telephone (FAMPWS) Normal 05-04-2020 [place] [facility] ABE STEVENSON ([id number]) 1960 [facility] Date Time Provider Department (66869) 05/04/20 CARLY ROGERS During your visit today, [...] checked again on Thursday at [facility]. Adriana Haider Ma Allergies As of [...] 05/04/20 progress on 2020-04 PROGRESS HNO ID: [id number] Normal 04-19-2020 [facility] Author: Carly Rogers [place] ([id number]) Service: ? Author Type: Physician Type: Progress [...] setting and agrees. Pt currently residing at [facility]. [...] care of her supplies and Kindr rosaura [facility] takes care of the wound. Has been given rx's for Valium 5 mg and Percocet 5-325 mg - hasn't been taking. Past medical history, appointments, medications, allergies nancy parisi. Previous Medical History PAST MEDICAL HISTORY Diagnosis Date - Arthritis, hip - Diabetes mellitus (HCC) 03/2012 - Family history of colon cancer Father 55 - Family history of premature coronary artery disease mother [place] at 50 - History of colon polyps [...] Onset - Coronary Artery Disease Mother 50 [place] - Diabetes Mother 40 age 68 - [...] capsule EVERY 6 HOURS - COMPOUNDED PRESCRIPTION [employer] AirCurve 10 S VPAP machine with heated humidity and heated tubing. Pressure set to 22/16 cm H2O. Isotera. - atorvastatin (LIPITOR) 10 mg tablet Take [...] AGE 65 Completed INFLUENZA Completed Data reviewed [facility] Appointment on 04/16/2020 Component Date Value [...] Histories in dependently gathered by the clinical ground support equipment assembler and the remaining scr ibed note accurately describes my personal service to the patient. Carly Rogers MD The documentation for this note was completed by Macie cruz MA acting as scribe for Carly Rogers MD. April 19, 2020 9:37 AM. Macie shrotov on 2020-04-19 CNOV Office Visit (FAMPWS) Normal 04-19-[address] [place] [address] [facility] ABE STEVENSON ([id number]) 1960 [facility] Date Time Provider Department (17155) 04/19/20 9:40 AM CARLY ROGERS During your [...] setting and agrees. Pt currently residing at [facility]. Has been there since [...] Center takes care of her supplies and [facility] takes care of the wound. Has [...] history of premature coronary artery disease mother NV at 50 - History of colon polyps 03/07/2013 - HTN (hypertension) - Hyperlipemia - Obesity - Rosacea - Seborrheic dermatitis - Vitamin D deficiency Previous Surgical History PAST SURGICAL HISTORY Procedure Laterality Date - COLONOSCOPY AND POLYPECTOMY 03/07/13 repeat due 2018, tubular adenoma - PAST SURGICAL HISTORY OF cyst removed from uterus while - TOTAL HIP JOINT REPLACEMENT Left 02/2018 [facility] - TOTAL HIP JOINT REPLACEMENT Right 06/2018 [facility] Family History FAMILY HISTORY Problem Relation Age of Onset - Coronary Artery Disease Mother 50 [place] - Diabetes Mother 40 age 68 - [...] capsule EVERY 6 HOURS - COMPOUNDED PRESCRIPTION [employer] AirCurve 10 S VPAP machine with heated humidity and heated tubing. Pressure set to 22/16 cm H 2O. [employer]. - atorvastatin (LIPITOR) 10 mg tablet Take [...] AGE 65 Completed INFLUENZA Completed Data reviewed [facility] Appointment on 04/16/2020 Component Date Value [...] Histories in dependently gathered by the clinical ground support equipment assembler and the remaining scr ibed note accurately describes my personal service to the patient. Carly Rogers MD The documentation for this note was completed by Macie cruz MA acting as scribe for Carly Rogers MD. April 19, 2020 9:37 AM. Macie Lloyd MA Referring Provider: CARLY ROGERS [[id number]] Allergies As of Date: 04/19/2020 Noted Allergy [...] Pen AfterDisp: 4 PenRfl: 5 HGB A1C [OVHTR7I] Order #: [id number] FUTURE COMP METABOLIC PANEL [SQCMP] Order #: [id number] FUTURE LIPID PANEL BASIC [SQLIPB] Order #: [id number] FUTURE Prescriptions as of 04/19/2020 Sig: LANCETS [...] on 2020-04-17 CNPN Telephone (FAMPWS) Normal 04-17-2020 [place] [facility] ABE STEVENSON ([id number]) 1960 [facility] Date Time Provider Department (93493) 04/17/20 [facility] During your visit today, we recorded the following informati on about you: Bea Santana RN 04/17/2020 3:39 PM Signed Leticia from [facility] called, verified pt by name [...] [Mass fraction] 171 mg/dL Normal [facility] (16657) Comment: Result Comment: eAG: (Estima jayna average glucose) is a calculated value from HgbA1c and is payable representative of the average blood glucose level in the last 2-3 month period. Performed By: #### HBA1C, CM P ####[address] [phone] HbA1c (Bld) [Mass fraction] 7.6 4.3-5.6 % High [facility] (14380) Comment: Result Comment: Citizen [place] Carmel betes Association guidelines indicate that patients with HgbA1c in the range 5.7-6.4% are at increased risk for development of diabetes, and intervention by lifestyle modification may be beneficial. HgbA1c greater o r equal to 6.5% is considered diagnostic of diabetes. Performed By: #### HBA1C, CM P ####[place] [address] [place], [place] [phone]- [phone] comp metabolic panel on 2020-04-16 Albumin [Mass/Vol] 4.1 3.9-4.9 g/dL Normal 04-16-2020 [facility] (87924) Comment: Performed By: #### HBA1C, CM P ####[address] [phone] ALP [Catalytic activity/Vol] 120 34-123 U/L Normal 0 04-16-2020 [facility] (23538) Comment: Performed By: #### HBA1C, CM P ####[facility], [place] [phone]- [phone] ALT [Catalytic activity/Vol] 32 7-38 U/L Normal 0 04-16-2020 [facility] (16686) Comment: Performed By: #### HBA1C, CM P ####[place] [address] [place], [place] [phone]- [phone] Anion gap [Moles/Vol] 16 9-18 mmol/L Normal 04-16-20 20 [facility] (33573) Comment: Performed By: #### HBA1C, CM P ####[place] [address] [place], [place] [phone] AST [Catalytic activity/Vol] 35 13-35 U/L Normal 0 04-16-2020 [facility] (30816) Comment: Performed By: #### HBA1C, CM P ####[place] [address] [place], [place] [phone]- [phone] Bilirubin [Mass/Vol] 0.2 0.2-1.3 mg/dL Normal 0 [facility] (80520) Comment: Performed By: #### HBA1C, CM P ####[place] [address] [place], [place] [phone] Calcium [Mass/Vol] 10.6 8.5-10.2 mg/dL High 04-16-2020 [facility] (96894) Comment: Performed By: #### HBA1C, CM P ####[place] [address] [address], [place] [phone] Chloride [Moles/Vol] 105 97-105 mmol/L Normal 0 [facility] (01170) Comment: Performed By: #### HBA1C, CM P ####[place] [address] [address] [facility], [place] [phone] CO2 [Moles/Vol] 21 22-30 mmol/L Low 04-16-2020 [facility] (46214) Comment: Performed By: #### HBA1C, CM P ####[facility] [address] [place] [address] [place], [place] [phone]- [phone] Creatinine [Mass/Vol] 0.79 0.58-0.96 mg/dL Normal 04-16-20 20 [facility] (67646) Comment: Performed By: #### HBA1C, CM P ####[facility] [address] [place] [place], [place] [phone]- [phone] eGFR- Amer. >60 Normal 04-16-2020 [facility] (05575) Comment: Performed By: #### HBA1C, CM P ####[facility] [place] [address] [phone] GFR/1.73 sq M predicted >60 mL/min/{1.73_m2} Normal 04-16-2020 [facility] among non-blacks [facility] [place] [facility] (50368) (S/P/Bld) [Vol rate/Area] Comment: Result Comment: eGFR [...] GFR. Performed By: #### HBA1C, CM P ####[facility] [address] [place], [place] [phone]- [phone] Glucose [Mass/Vol] 138 74-99 mg/dL High 04-16-2020 [facility] (52557) Comment: Result Comment: The [place] Diabetes Association (ADA) provides guidance for cutoff [...] for diagnosis of diabetes. Reference: Standards of [facility] in Diabetes 2016, [place] Diabetes Association. Diabetes Care. 2016.39(Suppl 1). Performed By: #### HBA1C, CM P ####[place] [address] [address], [place] [phone]- [phone] Potassium [Moles/Vol] 4.4 3.7-5.1 mmol/L Normal 04-16-20 [facility] (46289) Comment: Performed By: #### HBA1C, CM P ####[place] [address] [place] [address], [place] [phone] Protein [Mass/Vol] 7.9 6.3-8.0 g/dL Normal 04-16-2020 [facility] (41939) Comment: Performed By: #### HBA1C, CM P ####[place] [address] [place] [address] [place], [place] [phone]- [phone] Sodium [Moles/Vol] 142 136-144 mmol/L Normal 04-16-2020 [facility] (73382) Comment: Performed By: #### HBA1C, CM P ####[place] [address] [address], [place] [phone]- [phone] Urea nitrogen [Mass/Vol] 13 7-21 mg/dL Normal 04-16 [facility] (97293) Comment: Performed By: #### HBA1C, CM P ####[place] [address] [place] [place], [place] [phone] albumin/creat ratio on 2020-04-16 Albumin Urine Random 17.9 mg/L Normal 0 [facility] (45529) Comment: Performed By: #### UACR #### [place] [address] [place], [place] [phone] Albumin/Creat Ratio 12 <30 mg/g Normal 04-16-2020 [facility] (96161) Comment: Result Comment: Adult Male a nd [...] 3(1), 1-150. Performed By: #### UACR #### [facility] [place], [place] [phone] Creatinine,Urine,Ran 143.3 20-300 mg/dL Normal 0 [facility] (73262) Comment: Performed By: #### UACR #### [facility] [place], [place] [phone] cnpn on 2020-04-10 CNPN Telephone (FAMWS) Normal 04-10-2020 [place] [facility] ABE STEVENSON ([id number]) 1960 [facility] Date Time Provider Department (16506) 04/10/20 [facility] visit today, we recorded the following informati on about you: Renate Velasco LPN 04/10/2020 11:56 AM Signed Dottie with [facility] calling with plan of care for patient. Please advise Dottie PH: [phone]. 1.. Nursing for 2 to 3 times [...] insulin (HCC) [E11.9] Order(s):HOME BLOOD GLUCOSE MONITOR [[id number]] Order #: [id number] Lancets lancetsTest blood sugar(s) 1 times daily. [...] 04/10/20 progress on 2020-03 PROGRESS HNO ID: [id number] Normal 04-06-2020 [facility] Author: Carly Rogers ([id number]) Service: ? Author Type: Physician Type: Progress Notes Filed: 04/06/2020 3:10 PM Note Text: Noted Carly Rogers MD PROGRESS HNO ID: [id number] Normal 04-06-2020 [facility] Author: Cathy Salazar MA ([id number]) Service: ? Author Type: Cigar Machine Feeder Type: Progress Notes Filed: 04/06/2020 3:10 PM Note Text: TRANSITION CARE MANAGEMENT (TCM) INITIAL CONTACT Cigar Machine Feeder Outreach Provider Action/FYI: Initial contact with patient post discharge, spoke to pedro lazaro Patient identified by name and . TRANSITION CARE MANAGEMENT INITIAL OUTREACH DOCUMENTATION: Date of Outreach: 04/06/2020 04/06/2020 Outreach Attempt 1: Contact Made - Date of Discharge 04/05/2020 04/05/2020 Some recent data might be hidden SUMMARY: -Pt discharged from [facility] on 04/05/20. -Admitted for: Abcess right [...] ? Yes Medical records from recent hospitalization: [facility] cnptoutreach on CNPTOUTREACH Patient Outreach (FAMPWS) Normal 0 04-06-2020 [place] [facility] ABE STEVENSON ([id number]) 1960 [facility] Time Provider Department (75637) 04/06/20 CARLY ROGERSPWS During your visit today, we recorded the following informati on about you: Cathy Salazar MA, MA 04/06/2020 3:10 PM Signed TRANSITION CARE MANAGEMENT (TCM) INITIAL CONTACT Cigar Machine Feeder Outreach Provider Action/FYI: Initial contact with patient post discharge, spoke to pedro lazaro Patient identified by name and . TRANSITION CARE MANAGEMENT INITIAL OUTREACH DOCUMENTATION: Date of Outreach: 04/06/2020 04/06/2020 Outreach Attempt 1: Contact Made - Date of Discharge 04/05/2020 04/05/2020 Some recent data might be hidden SUMMARY: -Pt discharged from [facility] on 04/05/20. -Admitted for: Abcess right [...] Status:Closed by [facility] R[facility]ERS [facility]) Normal 04-06-2020 [place] [facility] ABE STEVENSON ([id number]) 1960 [place] Date Time Provider Department (95895) 04/06/20 [facility] During your visit today, we recorded the following informati on about you: Bea Santana RN 04/06/2020 10:34 AM Signed nurse eLticia from [facility] call ed, verified pt by [...] on 2020-04-05 CNPN Telephone (FAMPWS) Normal 04-05-2020 [place] [facility] ABE STEVENSON ([id number]) 1960 [facility] Hospital Date Time Provider Department ([id number]) [facility] During your visit today, we recorded the following informati on about you: Ruby Swenson Pss 04/05/2020 12:44 PM Signed Patient is calling to inform doctor that she has been admitt ed to [facility] earlier this week for a Diabetic abscess [...] see how she is doing with [facility]. MD Adriana Lance Ma 04/05/2020 4:54 [...] Refill (FAMPWS) Normal 03-26-2020 Jose Rafael janneth [facility] ABE STEVENSON ([id number]) 1960 [facility] Date Time Provider Department ([id number]) 03/26/20 [facility] ROGERS [facility] During your visit [...] 03/27/20 progress on 2020-03 PROGRESS HNO ID: [id number] Normal 03-23-2020 [facility] Author: Carly Rogers [place] ([id number]) Service: ? Author Type: Physician Type: Progress [...] bitten by a spider and went to [facility] ER last year in June 12, [...] history of premature coronary artery disease mother NV at 50 - History of colon polyps 03/07/2013 - HTN (hypertension) - Hyperlipemia - Obesity - Rosacea - Seborrheic dermatitis - Vitamin D deficiency Previous Surgical History PAST SURGICAL HISTORY Procedure Laterality Date - COLONOSCOPY AND POLYPECTOMY 03/07/13 repeat due 2017, tubular adenoma - PAST SURGICAL HISTORY OF cyst removed from uterus while - TOTAL HIP JOINT REPLACEMENT Left 02/2018 [facility] - TOTAL HIP JOINT REPLACEMENT Right 06/2018 [facility] Family History FAMILY HISTORY Problem Relation Age of Onset - Coronary Artery Disease Mother 50 [place] - Diabetes Mother 40 age 68 - Colon Cancer Father 55 age 58 - Diabetes Sister 60 - Arthritis Sister - Osteoporosis Sister Patient Allergies ALLERGIES Allergen Reactions - Enalapril Cough Current Medications Current Outpatient Medications on File Prior to Visit Medication Sig - cephALEXin (KEFLEX) 500 mg capsule EVERY 6 HOURS - COMPOUNDED PRESCRIPTION [employer] AirCurve 10 S VPAP machine with heated humidity and heated tubing. Pressure set to 22/16 cm H2O. Isotera. - atorvastatin (LIPITOR) 10 mg tablet Take [...] Histories in dependently gathered by the clinical ground support equipment assembler and the remaining scr ibed note accurately describes my personal service to the patient. Carly Rogers MD The documentation for this note was completed by Adriana chris Ma acting as scribe for Carly Rogers MD. March 23, 2020 8:46 AM. Adriana Haider Ma obsolete on 2020-03 OBSOLETE Refill (FAMPWS) Normal 03-22-2020 Jose Rafael [facility]ann[facility] ABE STEVENSON ([id number]) 1960 [place] Date Time Provider Department (10963) 03/22/20 CARLY ROGERS During your visit today, [...] bitten by a spider and went to [facility] last year in June 12 2019, [...] Date Reviewed: 11/20/2019 Reviewed by: Dinorah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 2 year degree in [employer] design. 1 son Moved from [place] Used to swim daily EXAM: BP 130/80 [...] 65 Completed Data reviewed Hospital reports from [facility] 08/06/19-08/09/19 ASSESSMENT/PLAN: 1. Essential hypertension - [...] Histories in dependently gathered by the clinical ground support equipment assembler and the remaining scr ibed note accurately describes my personal service to the patient Carly Rogers MD The documentation for this note was completed by Adriana chris Ma acting as scribe for Carly Rogers MD. August 24, 2019 9:43 AM . cnov on 2019-08-24 CNOV Office Visit (FAMPWS) Normal 08-24-20 19 [facility] ABE STEVENSON ([id number]) 1960 [facility] Date Time Provider Department ([id number]) 08/24/19 10:00 AM CARLY ROGERS During your visit today, we recorded the following informati on about you: Temperature Pulse Respiration Blood pressure 97.7 degrees 74/minute 18/minute 130/80 Weight 105.2 kg Carly Rogers MD 08/24/2019 11:27 AM Signed Chief Complaint Patient presents with: Hospital Follow Up Imm/Inj: Flu Vaccine HPI Aeb Stevenson is a 58 year old female who presents here t [facility] for hospital follow up. Pt is not a TCM as she was scheduled outside of the 14 day [facility] frame. Was unable to reach pt to reschedule sooner. Had a pacemaker placed, is following with Cardio, Dr. Carrero. Was admitted to the [facility] on 08/06/19 till 08/09/19 for dizziness [...] history of premature coronary artery disease mother NV at 50 - History of colon polyps 03/07/2013 - HTN (hypertension) - Hyperlipemia - Obesity - Rosacea - Seborrheic dermatitis - Vitamin D deficiency Previous Surgical History PAST SURGICAL HISTORY Procedure Laterality Date - COLONOSCOPY AND POLYPECTOMY 03/07/13 repeat due 2017, tubular adenoma - PAST SURGICAL HISTORY OF cyst removed from uterus while - TOTAL HIP JOINT REPLACEMENT Left 02/2018 [facility] - TOTAL HIP JOINT REPLACEMENT Right 06/2018 [facility] Family History FAMILY HISTORY Problem Relation Age of Onset - Colon Cancer Father 55 age 58 - Coronary Artery Disease Mother 50 NV - Diabetes Mother 40 age 68 - [...] Not on file Occupational 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 2 year degree in Reli[employer] design. 1 son Moved from [place] Used to swim daily EXAM: BP 130/80 [...] 65 Completed Data reviewed Hospital reports from [facility] 08/06/19-08/09/19 ASSESSMENT/PLAN: 1. Essential hypertension - [...] Histories in dependently gathered by the clinical ground support equipment assembler and the remaining scr ibed note accurately [...] QUADRIVALENT AGE 3 YRS PLUS + IM [[id number]] Order #: [id number] losartan (COZAAR) 50 mg tabletTake 1 tablet [...] Provider Location 06-25-2020 - Documentation External Provider [facility] 06-25-2020 procedure 12-21-2016 - Emergency department Pain in right INC GEMS NO Facili ty:[facility] 12-21-2016 patient visit hip REFERRING [facility] 07-24-2020 - Letter encounter Carly Rogers [facility] 07-24-2020 [place] 07-02-2020 - Patient encounter External Provider [facility] 07-02-2020 procedure 06-25-2020 Patient encounter External Provider Rafia [facility] procedure 08-20-2020 - Refill Cramp Carly Manuel [facility] icine 08-20-2020 [place] Comment: Refill Request 07-30-2020 - 07-30-2020 Refill Cough Carly Manuel [facility] [place] Comment: Refill Request 07-02-2020 Results Only External Provider External-N [facility] Procedures Procedure Name Date Provider Location EXTERNAL IMAGING 07-02-2020 [facility] ([id number]) Mammography 09-19-2019 - 09-19-2019 [facility] ([id number]) Colonoscopy 03-07-2013 - 03-07-2013 [facility] ([id number]) Plan of Treatment Plan Description Date Location PAP TESTING PAP TESTING 09-19-2024 - [facility] 09-19-2024 ([id number]) ANNUAL PCP TEAM CHRONIC ANNUAL PCP TEAM CHRONIC 04-19-2021 - [facility] DISEASE VISIT DISEASE VISIT 04-19-2021 ([id number]) URINE ALBUMIN:CREATININE URINE ALBUMIN:CREATININE 04-16-2021 - [facility] RATIO RATIO 04-16-2021 ([id number]) LDL CHOLESTEROL LDL CHOLESTEROL 12-16-2020 - [facility] 12-16-2020 ([id number]) HBA1C HBA1C 10-16-2020 - [facility] 10-16-2020 ([id number]) MAMMOGRAM MAMMOGRAM 09-19-2020 - [facility] 09-19-2020 ([id number]) INFLUENZA (#1) INFLUENZA (#1) 2020 - [facility] 07-17-2020 ([id number]) DIABETIC FOOT EXAM DIABETIC FOOT EXAM 04-19-2020 - [facility] 04-19-2020 ([id number]) HPV TESTING HPV TESTING 07-11-2018 - [facility] 07-11-2018 ([id number]) COLONOSCOPY COLONOSCOPY 03-07-2018 - [facility] 03-07-2018 ([id number]) COLORECTAL CANCER COLORECTAL CANCER 03-07-2018 [facility] inic SCREENING,SEE MODIFIER SCREENING,SEE MODIFIER (4 [id number]) DILATED RETINAL EXAM DILATED RETINAL EXAM 11-12-2017 - [facility] 11-12-2017 ([id number]) SHINGRIX VACCINE (1 of SHINGRIX VACCINE (1 of 2010 - [facility] 2) 2) 2010 (81020) DTAP,TDAP,TD (1 - Tdap) DTAP,TDAP,TD (1 - Tdap) 1979 - [facility] 1979 (36553) BP CONTROLLED (<130/80) BP CONTROLLED (<130/80) 1978 - [facility] 1978 ([id number]) HEPATITIS C SCREENING HEPATITIS C SCREENING 1978 - [facility] 1978 (15715) HIV SCREENING HIV SCREENING 1978 - [facility] 1978 ([id number]) no information [facility] ([id number]) Immunizations Vaccine Notes Status Date Location Influenza Vaccine, influenza virus (completed) 08-03-2013 - [facility] Split-Non Spec vaccine, unspecified 08-03-2013 (4419 5) formulation Influenza Seasonal influenza, injectable, (completed) 08-24-2019 - [facility] Inj Quadrivalent Age quadrivalent, contains 08-24-2019 (37004) 3+ preservative Influenza Seasonal influenza, injectable, (completed) 10-11-2018 - [facility] Inj Quadrivalent Age quadrivalent, contains 10-11-2018 (75711) 3+ preservative Influenza Seasonal influenza, injectable, (completed) 10-25-2015 - [facility] Inj Quadrivalent Age quadrivalent, contains 10-25-2015 (59744) 3+ preservative Influenza Seasonal influenza, seasonal, (completed) 07-31-2014 [facility] Inj Age 3+ injectable 07-31-2014 (23543) Pneumococcal-13 Vac pneumococcal conjugate (completed) 09-06-2014 - [facility] Conjugate vaccine, 13 valent 09-06-2014 (40027) Pneumovax pneumococcal (completed) [facility] polys[facility], 03-12-2015 (441 95) 23 valent Influenza Recombinant Seasonal, trivalent, (completed) 08-31-2016 - [facility] Seasonal Inj PresFree recombinant, injectable 08-31-20 16 (57623) influenza vaccine, preservative free Payers Payer Name Policy Number Location EDDIE LEGER O [id number] [facility] ([id number]) [employer] MEDICARE [id number] [facility] (44 195) The following information is from the original human readable contentNo Payer Records Found Social History Type Social History Date Location Description Tobacco smoking status Current every day smoker 04-19-2020 - [facility] NHIS 04-19-2020 (67784) History of tobacco use Cigarette Smoker [facility] ([id number]) Cigarettes smoked 04-19-2020 - [facility] ic current (pack per day) 04-19-2020 (86080) - Reported Tobacco use and Never used 04-19-2020 - [facility] exposure 04-19-2020 (04481) Alcohol intake Current non-drinker of 04-19-2020 - [facility] alcohol (finding) 04-19-2020 (12017) Tobacco Comment 10 cigarettes per day 04-19-2019 - [facility] 04-19-2019 (91004) Alcohol Comment 2 drinks/month 05-25-2014 - [facility] 05-25-2014 (10477) Sex Assigned At Not on file [facility] ([id number]) The following information is from the original [...] premature coronary artery disease 04/17/2020 Overview: mother NV at 50 Arthritis, hip 04/17/2020 Problem Noted Date Resolved Date Peripheral polyneuropathy 07/09/2017 04/17/2020 Skin lesion, superficial 06/15/2015 04/17/2020 Right leg pain 06/07/2015 04/17/2020 Abdominal pain, unspecified site 05/12/2015 020 Anal fissure 07/31/2014 04/17/2020 History of colon polyps 03/07/2013 04/17/2020 Family history of colon cancer 0 Overview: Father 55 Family history of premature coronary artery disease 04/17/2020 Overview: mother NV at 50 Arthritis, hip 04/17/2020 Problem Noted Date Resolved Date Peripheral polyneuropathy 07/09/2017 04/17/2020 Skin lesion, superficial 06/15/2015 04/17/2020 Right leg pain 06/07/2015 04/17/2020 Abdominal pain, unspecified site 05/12/2015 020 Anal fissure 07/31/2014 04/17/2020 History of colon polyps 03/07/2013 04/17/2020 Family history of colon cancer 0 Overview: Father 55 Family history of premature coronary artery disease 04/17/2020 Overview: mother NV at 50 Arthritis, hip 04/17/2020 Assessments Diagnosis Cough Diagnosis Muscle cramps Cramp of limb Reason for Referral Status Reason Specialty Diagnoses / Procedures Referred By C ontact Referred To Contact Closed Diagnoses Muscle cramps Carly Rogers [address] [place], [place] [address] Phone: Additional Source Comments FOR RECORDS PERTAINING [...] BE BASED ON THE PRIMARY CLINICAL RECORDS. [facility] provides no warranty or guarantee of the accuracy or completeness of information in this document. UNRECOGNIZED CONTENT PROVIDED BELOW FOR UNRECOGNIZED SECTION INFORMATION SOURCE DATE CREATED AUTHOR AUTHOR'S COREYDOREENO N 05/12/2018 [facility] DATE CREATED AUTHOR AUTHOR'S ORGANIZATIO N 08/20/2020 [facility] UNRECOGNIZED CONTENT PROVIDED BELOW FOR UNRECOGNIZED SECTION Source Comments In the event this information is protected by the Federal Confidentiality of Alcohol and Drug Abuse Patient Records regulations: The Federal rules restrict any use of the information to criminally investigate or prosecute any alcohol or drug abuse patient.[facility] the event this information is protected by the Federal Confidentiality of Alcohol and Drug Abuse Patient Records regulations: The Federal rules restrict any use of the information to criminally investigate or prosecute any alcohol or drug abuse patient.[facility] the event this information is protected by the Federal Confidentiality of Alcohol and Drug Abuse Patient Records regulations: The Federal rules restrict any use of the information to criminally investigate or prosecute any alcohol or drug abuse patient.[facility] the event this information is protected by the Federal Confidentiality of Alcohol and Drug Abuse Patient Records regulations: The Federal rules restrict any use of the information to criminally investigate or prosecute any alcohol or drug abuse patient.[facility] the event this information is protected by the Federal Confidentiality of Alcohol and Drug Abuse Patient Records regulations: The Federal rules restrict any use of the information to criminally investigate or prosecute any alcohol or drug abuse patient.[facility] UNRECOGNIZED CONTENT PROVIDED BELOW FOR UNRECOGNIZED SECTION [...]
== END 2020-04-07 02:41 | disposition home or self-care (01) ==
LOC: ED 02:35
PROVIDERS: Emergency Provider Emergency Medicine; PCP Family Medicine
DX: R11.2 Nausea with vomiting, unspecified (principal); I10 Essential (primary) hypertension; I44.2 Atrioventricular block, complete; E11.9 Type 2 diabetes mellitus without complications; E78.5 Hyperlipidemia, unspecified; F32.9 Major depressive disorder, single episode, unspecified; F41.9 Anxiety disorder, unspecified; F17.200 Nicotine dependence, unspecified, uncomplicated; E66.9 Obesity, unspecified; Z68.42 Body mass index [BMI] 45.0-49.9, adult; Z95.0 Presence of cardiac pacemaker; Z79.84 Long term (current) use of oral hypoglycemic drugs; Z79.899 Other long term (current) drug therapy
CPT/HCPCS: 99284

== ENCOUNTER 2020-04-12 07:25 | Emergency (ER) | payer MEDICARE, SELFPAY ==
[2020-04-12 07:26] VITALS: BP 155/83; PULSE 90; RESP 20; TEMP 36.4; O2SAT 98; BMI 43.9
--- NOTE | 2020-04-12 07:32 | CT_ITS ---
STUDY: CT ABDOMEN AND PELVIS WITHOUT CONTRAST REASON FOR EXAM: Female, 59 years old. PT VOMIT CEASAR THIS AM, PT ON ABX RADIATION DOSAGE (If Supplied By Facility): CTDIvol = ( 14.80 ) mGy, DLP = ( 696.44 ) mGycm TECHNIQUE: Transaxial images were obtained from the dome of the diaphragm to the symphysis pubis without oral contrast, and without intravenous contrast. Sagittal and coronal images were reconstructed. Individualized dose optimization techniques were used for this CT. COMPARISON: Comparison is made with prior examination dated November 06, 2019. FINDINGS: Increased linear densities at the left lung base suggestive of scarring. A dual-chamber pacemaker is seen. There is hepatomegaly with diffuse hepatic enlargement. Hepatomegaly. The gallbladder is contracted. Normal spleen. Normal pancreas. Normal bilateral adrenal glands. There is a 4.3 mm calculus in the lower pole calyx of the right kidney. Focal cortical scar is seen at that site. Punctate calcification in the midpole calyx of the right kidney as well. Normal left kidney. Normal visualized stomach. Normal small intestine. There are multiple colonic diverticula consistent with diverticulosis. The appendix is visualized and appears normal. There is scattered atherosclerotic calcification of the abdominal aorta, without a demonstrated aneurysm. Normal inferior vena cava. Normal retroperitoneum. Normal urinary bladder. There is a small umbilical hernia containing fat. There are degenerative changes of the visualized lumbar spine. Bilateral hip replacements causing limited visualization of the pelvis due to overlying beam hardening artifacts. CT/Abdomen/Pelvis without Cont IMPRESSION: Hepatomegaly and diffuse fatty infiltration of the liver. Nonobstructive right intrarenal calculi with focal cortical scarring in the inferior aspect of the right kidney. Electronically Signed: Samy Howe, at 8:40 EDT , Service support ,
--- NOTE | 2020-04-12 07:32 | EKG12_ITS ---
Test Reason : Blood Pressure : / mmHG Vent. Rate : 096 BPM Atrial Rate : 096 BPM P-R Int : 154 ms QRS Dur : 092 ms QT Int : 420 ms P-R-T Axes : 065 055 069 degrees QTc Int : 530 ms Normal sinus rhythm Nonspecific ST and T wave abnormality Prolonged QT Abnormal ECG Confirmed by STACY BECERRA ([id number]), proposal editor IRVING JONES ([id number]) on 04/16/2020 11:29:38 AM Referred By: LYLE Confirmed By:STACY BECERRA
--- NOTE | 2020-04-12 07:34 | ED.VISSUMM ---
- ER Visit Summary Date of Service: 04/12/20 Chief Complaint: [Nausea and vomiting] History of Present Illness: The patient is a 59 F [presents the emergency department complaint of nausea and vomiting that started around 6 AM this morning. Patient states that she had woken up in started taking amoxicillin around 5 AM. Patient around 6 AM developed nausea and vomited about 3 or 4 times. She describes some abdominal discomfort. Patient states she had been having problems with constipation but took MiraLAX and had a bowel movement yesterday. She denies any blood in her stool or black tarry stools. Patient states that a week ago she was discharged from the hospital after having surgery on an infection in her right groin and has a wound VAC to the right groin. Patient had not been taking her antibiotics over the last week but started taking them again this morning. She denies any fevers. She denies urinary symptoms. She denies chest pain or shortness of breath. Patient has history of diabetes, hypertension, and high cholesterol.] Patient has a pacemaker. Patient has had history of bilateral hip replacements. No abdominal surgeries otherwise. Physical Examination: [HEENT-PERRLA, EOMI. Cranial nerves II through XII grossly intact. TMs clear. Mucous membranes moist. No adenopathy. Cardiovascular-regular rate and rhythm without murmur or ectopy Lungs-clear to auscultation, chest wall stable without crepitus or subcu emphysema Abdomen-normoactive bowel sounds, soft. Patient has tenderness palpation over the lower abdomen diffusely as well as the left lower quadrant. There is a mild guarding. There is no rebound, rigidity, or peritoneal signs. Extremities-intact ?4, normal range of motion, normal pulses, atraumatic. Right groin-patient has a wound VAC in place over a surgical wound and the wound looks good without signs of infection. There is no cellulitis noted.] Test Results: [CBC with differential showed an elevated white count of 16.8, hemoglobin 14, hematocrit 44, placed 341. Chemistries unremarkable. LFTs unremarkable. Troponin less than 0.015. EKG on arrival shows sinus rhythm with a ventricular rate of 96 bpm with some nonspecific ST changes. CT scan of the abdomen pelvis showed hepatomegaly and a right renal calculi that is nonobstructing.] Emergency Department Course and Treatment: [Patient had an IV line established. Patient was given Zofran 4 mg IV. Patient's nausea resolved. She had no further vomiting.] Treatment Plan: [Patient will be given a prescription for Zofran. Patient advised to take her antibiotic with food and use the antiemetic as well. Patient advised to follow-up with her surgeon as instructed. Patient will have the wound care nurse out today to the change her dressing.] Disposition: [Discharged home in stable condition] Impression: [Nausea and vomiting-medication side effect] This note was generated with [employer] dictation software. It may contain incorrect words, spelling, and punctuation that were not noted in review of the chart prior to signing ED Disposition - Plan for ED Patient: Referrals: Lamberto Rogers MD [Primary Care Provider] -
[2020-04-12 08:07] LABS: Absolute Lymphocyte Count 2.98 X10^3/uL (0.83-4.51); Absolute Neutrophil Count 12.1 X10^3/uL (2.0-7.7); Basophil# 0.07 X10^3/uL; Basophil% 0.4 % (0-1); Eosinophil# 0.32 X10^3/uL; Eosinophils% 1.9 % (0-5); Hematocrit 44.3 % (37-47); Hemoglobin 14.1 g/dL (12.0-15.0); Lymphocyte # 2.98 X10^3/ul (4.0); Lymphocyte % 17.8 % (19-41); Mean Corp Hgb Conc 31.8 g/dL (32-36); Mean Corpuscular Hgb 30.3 pg (27.0-32.0); Mean Corpuscular Volume 95.3 fL (81-99); Mean Platelet Vol. 9.4 fl (6.2-12.0); Monocyte# 1.21 X10^3/uL; Monocyte% 7.2 % (0-10); NRBC Flagged by Analyzer 0 % (0-5); Neutrophil # 12.08 X10^3/uL (2.7-7.7); Neutrophil % 72.2 % (47-70); Platelet Count 341 K/mm3 (150-450); RBC Distribution Width CV 13.5 % (11.6-14.6); RBC Distribution Width SD 47.1 fl (35.1-43.9); Red Blood Count 4.65 M/mm3 (4.2-5.4); White Blood Count 16.8 K/mm3 (4.4-11.0)
[2020-04-12] MEDS: Ondansetron 4 MG/2 ML Vial IV (08:15)
[2020-04-12] MEDS: 0.9% Normal Saline 1,000 ML 125 ML IV (08:15)
[2020-04-12 08:30] LABS: ALB/GLOB Ratio 0.7 RATIO (0.9-2.4); AST(SGOT) 23 U/L (15-37); Alanine Aminotransfer ALT/SGPT 41 U/L (13-56); Albumin, Serum 3.4 g/dL (3.2-5.0); Alkaline Phosphatase 124 U/L (45-117); Anion Gap 7 (5-15); BUN 15 mg/dL (7-18); BUN/Creat Ratio 14.2 RATIO (10-20); Calcium,Total 10.2 mg/dL (8.5-10.1); Chloride 105 mmol/L (98-107); Creatinine, Serum 1.06 mg/dL (0.55-1.02); EST Glomerular Filtration Rate 56 mL/min (>60); Est Glom Filt Rate - Afr Amer 68 mL/min (>60); Estimated Creatinine Clearance 51.42 ml/min; Globulin 4.7 g/dL (2.2-4.2); Glucose 135 mg/dL (74-106); Lipase 74 U/L (73-393); Potassium 3.6 mmol/L (3.5-5.1); Protein, Total 8.1 g/dL (6.4-8.2); Sodium Level 141 mmol/L (136-145)
--- NOTE | 2020-04-12 09:04 | ED.DEP ---
ED Disposition - Plan for ED Patient: Instructions: ED Nausea Vomiting Adult Prescriptions: Ondansetron [Zofran Odt] 4 mg PO Q8H PRN PRN #10 tab PRN Reason: Nausea Transmission Status: Pending to [facility] #30 Referrals: Lamberto Rogers MD [Primary Care Provider] - 3-5 Days
[2020-04-12 09:11] VITALS: BP 146/97; PULSE 81; RESP 20; O2SAT 97
--- NOTE | 2020-04-12 09:12 | ED.RN ---
THIS NURSE REVIEWED D/C INSTRUCTIONS WITH PT. PT VERBALIZED UNDERSTANDING OF INSTRUCTIONS. IV D/C. IV CATHETER INTACT. PT TOLERATED WELL. PT DENIES FURTHER NEEDS OR QUESTIONS AT THIS TIME
--- OUTSIDE RECORDS SUMMARY | 2020-08-28 18:20 | XMS RPT_ITS | CCD ---
:1960 External Reference #:[id number] Author Organization [employer] Care Team Providers Name Role Phone Doutor Recomenda Unavailable Unavailable NO REFERRING DR Mcdermott Unavailable DENISE SEGURA Unavailable Unavailable Carly Rogers Primary Care Provider Allergies Reported Allergen Reaction(s) Severity Date of Onset Location enalapril Translations: [ Cough 01-17-2013 - [facility] ENALAPRIL] System Reposito ry Medications Medication Name Sig Date Prescriber Location Acetaminophen acetaminophen (TYLENOL 01-29-2017 [facility] EXTRA STRENGTH) [address] (4419 5) tablet Indications: Chronic pain of left knee , Pain in right hip Take 1 tablet by mouth every 6 hours as needed for Pain. 120 tablet 2 01/29/2017 Active Comment: Take 1 tablet by mouth every 6 hours as needed for Pain. Amitriptyline amitriptyline (ELAVIL) 06-19-2020 Caryl Manuel [facility] 10 mg tablet (37046) Indications: Depression, major, recurrent, mild (HCC) Take 1 tablet by mouth daily at bedtime. 30 tablet 5 06/19/2020 Active Comment: Take 1 tablet by mouth daily at bedtime. amLODIPine amLODIPine (NORVASC) 03-26-2020 Carly Manuel [facility] mg tablet Indications: (4419 5) Essential hypertension Take 1 tablet by mouth once daily. 30 tablet 03/26/2020 Active Comment: Take 1 tablet by mouth once daily. atorvastatin atorvastatin (LIPITOR) 05-21-2020 Carly Manuel [facility] 10 mg tablet (80273) Indications: Mixed hyperlipidemia Take 1 tablet by mouth once daily. 30 tablet 11 05/21/2020 Active Comment: Take 1 tablet by mouth once daily. benzonatate benzonatate (TESSALON 07-30-2020 Carly Manuel [facility] PERLMAMI) 100 mg capsule (4419 5) Indications: Cough Take 1 capsule by mouth three times daily as needed for Cough. 30 capsule 2 07/30/2020 Active benzonatate (TESSALON 03-23-2020 - Carly Manuel [facility]) 100 mg capsule 07-30-2020 (92773) Indications: Cough Take 1 capsule by mouth three times daily as needed for Cough. 30 capsule 2 03/23/2020 07/30/2020 Discontinued Comment: Take 1 capsule by mouth thre e times daily as needed for Cough. Cephalexin cephALEXin (KEFLEX) 500 mg 08-25-2019 [facility] Provider C [facility] (86805) capsule EVERY 6 HOURS 0 08/25/2019 Active Comment: EVERY 6 HOURS COMPOUNDED COMPOUNDED 09-16-2019 Carly Manuel [facility] PRESCRIPTION PRESCRIPTION [employer] (95382) AirCurve 10 S VPAP machine with heated humidity and heated tubing. Pressure set to 22/16 cm H2O. [employer]. 0 09/16/2019 Active COMPOUNDED PRESCRIPTION [employer] 09-16-2019 Carly [facility] (19351) AirCurve 10 S VPAP machine with heated humidity and heated tubing. Pressure set to 22/16 cm H2O. [employer]. 0 09/16/2019 Active COMPOUNDED PRESCRIPTION [employer] 09-16-2019 Carly [facility] (45198) AirCurve 10 S VPAP machine with heated humidity and heated tubing. Pressure set to 22/16 cm H2O. [employer]. 0 09/16/2019 Active COMPOUNDED PRESCRIPTION [employer] 09-16-2019 Carly [facility] (15656) AirCurve 10 S VPAP machine with heated humidity and heated tubing. Pressure set to 22/16 cm H2O. [employer]ras[employer]. 0 09/16/2019 Active COMPOUNDED PRESCRIPTION [employer] 09-16-2019 Carly [facility] (99838) AirCurve 10 S VPAP machine with heated humidity and heated tubing. Pressure set to 22/16 cm H2O. [employer]. 0 09/16/2019 Active Comment: [employer] AirCurve 10 S VPAP ma elsa with heated humidity and heated tubing. Pressure set to 22/16 cm H2O . [employer]ras[employer]. cyclobenzaprine cyclobenzaprine 08-24-2019 - Carly Manuel [place] (FLEXERIL) 10 mg 08-20-2020 [facility] (441 95) tablet Indications: Muscle cramps Take 1 tablet by mouth three times daily as needed. 30 tablet 5 08/20/2020 Active Comment: Take 1 tablet by mouth three times daily as needed. dulaglutide dulaglutide (TRULICITY) 04-19-2020 Carly Manuel [facility] 0.75 mg/0.5 mL pnij (82749) Indications: Type 2 diabetes mellitus without complication, without long-term current use of insulin (HCC) Inject 0.75 mg subcutaneously one time a week. Inject dose once per week. Discard Pen After 4 Pen 5 04/19/2020 Active Comment: Inject 0.75 mg subcutaneousl y one time a week. Inject dose once per week. Discard Pen After telmisartan telmisartan (MICARDIS) 05-23-2020 Carly Manuel [facility] 40 mg tablet Take 1 (89693) tablet by mouth once daily. 30 tablet 5 05/23/2020 Active Comment: Take 1 tablet by mouth once daily. Problems Active Problems Category Problem Name Status Date Location Cardiac dysrhythmias Sick sinus syndrome Active 08-24-2019 - [facility] (53613) Conduction disorders Cardiac pacemaker in Active 08-24-2019 - [facility] situ (42612) Diabetes mellitus Type 2 diabetes Active 03-29-2013 - [facility] [place] [facility] without complication mellitus without [facility] complications (91873) Disorders of lipid Hyperlipidemia, Active 03-29-2013 - [facility] metabolism unspecified [facility] (36622) Essential hypertension Essential (primary) Active 03-29-2013 - [facility] hypertension [facility] (08483) Mood disorders Bipolar disorder, Active 12-21-2016 - [place] [facility] (51274) Nutritional deficiencies Vitamin D deficiency Active [facility] (74550) Osteoarthritis Unilateral primary Active 09-06-2015 - [place] [facility] osteoarthritis, right [facility] System hip (58328) Other connective tissue 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-2016 - [place] [facility] disease artificial hip joint Health System (44481) Other connective tissue Cramp Active [facility] disease (26184) Other inflammatory Rosacea Active 03-28-2013 - [facility] condition of skin (73972) Other lower respiratory Cough Active [facility] disease (81104) Other nervous system Other chronic pain Active 12-21-2016 - [facility] (93433) Other nervous system Sural neuropathy Active 06-02-2015 - [facility] disorders (89260) Other nutritional; Morbid obesity Active 09-19-2019 - [facility] endocrine; and metabolic (44 195) disorders Other nutritional; Obesity Active 03-29-2013 - [facility] endocrine; and metabolic (44 195) disorders Residual codes; Obstructive sleep apnea Active 08-24-2019 - C [facility] unclassified syndrome (59258) Schizophrenia and other Schizophrenia, Active 12-21-2016 - [facility] psychotic disorders unspecified Health [facility] (90925) Past or Other Problems Category Problem Name Status Date Location Other inflammatory Seborrheic Completed 03-28-2013 - [facility] condition of skin dermatitis (58562) Other non-traumatic Pain in right hip Completed 12-21-2016 - [facility] [facility] joint disorders [facility] m (18454) Other screening for Magnetic resonance Completed 07-09-2017 - [facility] suspected conditions imaging of brain (44 195) (not mental disorders abnormal or infectious disease) Results Result Name Value Range Unit Interpretation Flag Date Location obsolete on 2020-08 OBSOLETE Refill (FAMPWS) Normal 08-20-2020 [facility] ABE STEVENSON ([id number]) 1960 [facility] Time Provider Department (19788) 08/20/20 CARLY ROGERS During your visit today, [...] Normal 07-30-2020 Jose Rafael [place] ABE Auguste ([id number]) 1960 [facility] Date Time Provider Department (83760) 07/30/20 CARLY ROGERS FAMPWS During your visit [...] 2020-07-24 [facility] Letter Text Normal 07-24-2020 Nicole [facility] (41313) obsolete on 2020-06 OBSOLETE Refill (FAMPWS) Normal 06-19-2020 Jose Rafael [place] [facility] ABE STEVENSON ([id number]) 1960 [facility] Date Time Provider Department (92613) 06/19/20 CARLY ROGERS During your visit today, [...] on 2020-06-15 CNPN Telephone (FAMPWS) Normal 06-15-2020 [place] [facility] ABE STEVENSON ([id number]) 1960 [place] Date Time Provider Department (54779) 06/15/20 CARLY ROGERS During your visit today, we recorded the following informati on about you: Macie Lloyd MA 06/15/2020 8:42 AM Signed Received forms for pt from [facility], requesting verification of disability. Please review forms, complete, then fax back to [phone]. Macie Rogers MD 06/18/2020 5:11 PM Signed [...] (FAMPWS) Normal 06-11-2020 [facility] ABE STEVEN[place] ([id number]) 1960 [place] Date Time Provider Department (22388) 06/11/20 CARLY ROGERS During your visit today, we recorded the following informati on about you: Bea Santana RN 06/11/2020 2:44 PM Signed Archana from [facility] tayla led, verified pt by [...] on 2020-05-23 CNPN Telephone (FAMPWS) Normal 05-23-2020 [facility] ABE STEVENSON ([id number]) 1960 [facility] Date Time Provider Department (92255) 05/23/20 CARLY ROGERS During your visit today, we recorded the following informati on about you: Carley Whiting PACO 05/23/2020 2:50 PM Signed today 162/88 pulse 88 slight headache in the morning. Headache relieved with Tylen ol. Taking amlodipine every morning . Patient had office visit [facility] Dr Carrero yesterday, she said no medications [...] She will update pt and advise she brain picker medication. Macie Lloyd MA Allergies As [...] Refill (FAMPWS) Normal 05-21-2020 Jose Rafael [place] [facility] GRAHAMABE FALK ([id number]) 1960 [facility] Date Time Provider Department (19184) 05/21/20 CARLY ROGERS During your visit today, [...] on 2020-05-09 CNPN Telephone (FAMWS) Normal 05-09-2020 [place] [facility] ABE STEVENSON ([id number]) 1960 [place] Date Time Provider Department (79408) 05/09/20 CARLY ROGERS During your visit today, we recorded the following informati on about you: Renate Denis RN 05/09/2020 2:11 PM Signed Nurse Kassandra calls from [facility]. Did woun d care on [...] review and advise. Please call Kassandra at [phone] with any new orders. DORINA Tracey MD [...] 2020-05-04 CNPN Telephone (FAMPWS) Normal 05-04-2020 [place] [facility] ABE STEVENSON ([id number]) 1960 [facility] Date Time Provider Department (34388) 05/04/20 CARLY ROGERS During your visit today, [...] to monitor BP over the weekend MD Adriaan Lance Ma 05/04/2020 4:23 PM Signed Leticia notified. BP will be checked again on Thursday at [facility]. Adriana Haider Ma Allergies As of [...] 05/04/20 progress on 2020-04 PROGRESS HNO ID: [id number] Normal 04-19-2020 [facility] Author: Carly Rogers [place] ([id number]) Service: ? Author Type: Physician Type: Progress [...] setting and agrees. Pt currently residing at [facility]. Has [...] capsule EVERY 6 HOURS - COMPOUNDED PRESCRIPTION Lyrically [employer] AirCurve 10 S VPAP machine with heated humidity and heated tubing. Pressure set to 22/16 cm H2O. [employer]. - atorvastatin (LIPITOR) 10 mg tablet Take [...] Completed INFLUENZA Completed [facility] Appointment on 04/16/2020 Component Date Value - [...] Histories in dependently gathered by the clinical research support specialist and the remaining scr ibed note accurately describes my personal service to the patient. Carly Rogers MD The documentation for this note was completed by Macie cruz MA acting as scribe for Carly Rogers MD. April 19, 2020 9:37 AM. Macie shortov on 2020-04-19 CNOV Office Visit (FAMPWS) Normal 04-19-[address] [place] [address] [facility] ABE STEVENSON ([id number]) 1960 [facility] Date Time Provider Department (10030) 04/19/20 9:40 AM CARLY ROGERS During your [...] setting and agrees. Pt currently residing at [facility]. Has been there since [...] on no medications. Pt reports that she's padimni ble to take Metformin. She prefers [place], [...] Center takes care of her supplies and [facility] takes care of the wound. Has [...] - TOTAL HIP JOINT REPLACEMENT Left 02/2018 [facility] - TOTAL HIP JOINT REPLACEMENT Right 06/2018 [facility] Family History FAMILY HISTORY [...] capsule EVERY 6 HOURS - COMPOUNDED PRESCRIPTION Lyrically [employer] AirCurve 10 S VPAP machine with heated humidity and heated tubing. Pressure set to 22/16 cm H 2O. [employer]. - atorvastatin (LIPITOR) 10 mg tablet Take [...] Completed INFLUENZA Completed [facility] reviewed [facility] Appointment on 04/16/2020 Component Date Value - [...] Histories in dependently gathered by the clinical research support specialist and the remaining scr ibed note accurately describes my personal service to the patient. Carly Rogers MD The documentation for this note was completed by Macie cruz MA acting as scribe for Carly Rogers MD. April 19, 2020 9:37 AM. Macie Lloyd MA Referring Provider: CARLY ROGERS [[id number]] Allergies As of Date: 04/19/2020 Noted Allergy [...] Pen AfterDisp: 4 PenRfl: 5 HGB A1C [FAFBH3J] Order #: [id number] FUTURE COMP METABOLIC PANEL [SQCMP] Order #: [id number] FUTURE LIPID PANEL BASIC [SQLIPB] Order #: [id number] FUTURE Prescriptions as of 04/19/2020 Sig: LANCETS [...] on 2020-04-17 CNPN Telephone (FAMPWS) Normal 04-17-2020 [place] [facility] ABE STEVENSON ([id number]) 1960 [facility] Date Time Provider Department (38597) 04/17/20 [facility] During your visit today, we recorded the following informati on about you: Bea Santana RN 04/17/2020 3:39 PM Signed Leticia from [facility] called, verified pt by name [...] [Mass fraction] 171 mg/dL Normal [facility] (52147) Comment: Result Comment: eAG: (Estima jayna average glucose) is a calculated value from HgbA1c and is liability claims representative of the average blood glucose level in the last 2-3 month period. Performed By: #### HBA1C, CM P ####[address] [phone] HbA1c (Bld) [Mass fraction] 7.6 4.3-5.6 % High [facility] (53306) Comment: Result Comment: [place] [employer] Association guidelines indicate that patients with HgbA1c in the range 5.7-6.4% are at increased risk for development of diabetes, and intervention by lifestyle modification may be beneficial. HgbA1c greater o r equal to 6.5% is considered diagnostic of diabetes. Performed By: #### HBA1C, CM P ####[place] [address] [place], [place] [phone]- [phone] comp metabolic panel on 2020-04-16 Albumin [Mass/Vol] 4.1 3.9-4.9 g/dL Normal 04-16-[address] [facility] (85870) Comment: Performed By: #### HBA1C, CM P ####[address] [phone] ALP [Catalytic activity/Vol] 120 34-123 U/L Normal 0 04-16-[address] [facility] (01657) Comment: Performed By: #### HBA1C, CM P ####[facility] [place], [place] [phone] ALT [Catalytic activity/Vol] 32 7-38 U/L Normal 0 04-16-[address] [facility] (19878) Comment: Performed By: #### HBA1C, CM P ####[place] [address] [address], [place] [phone] Anion gap [Moles/Vol] 16 9-18 mmol/L Normal 04-16-[address] [facility] (51150) Comment: Performed By: #### HBA1C, CM P ####[place] [address] [address], [place] [phone] AST [Catalytic activity/Vol] 35 13-35 U/L Normal 0 04-16-[address] [facility] (01782) Comment: Performed By: #### HBA1C, CM P ####[place] [address] [address], [place] [phone] Bilirubin [Mass/Vol] 0.2 0.2-1.3 mg/dL Normal [address] [facility] (26423) Comment: Performed By: #### HBA1C, CM P ####[place] [address] [address], [place] [phone] Calcium [Mass/Vol] 10.6 8.5-10.2 mg/dL High 04-16-[address] [facility] (58798) Comment: Performed By: #### HBA1C, CM P ####[place] [address] [address], [place] [phone] Chloride [Moles/Vol] 105 97-105 mmol/L Normal [address] [facility] (29867) Comment: Performed By: #### HBA1C, CM P ####[place] [address] [address] [facility] [place], [place] [phone] CO2 [Moles/Vol] 21 22-30 mmol/L Low 04-16-2020 [facility] (91710) Comment: Performed By: #### HBA1C, CM P ####[facility] [address], [place] [phone] Creatinine [Mass/Vol] 0.79 0.58-0.96 mg/dL Normal 04-16-[address] [facility] (95891) Comment: Performed By: #### HBA1C, CM P ####[facility] [address], [place] [phone]- [phone] eGFR- Amer. >60 Normal 04-16-[address] [facility] (00172) Comment: Performed By: #### HBA1C, CM P ####[facility] [place] [address] [phone] GFR/1.73 sq M predicted >60 mL/min/{1.73_m2} Normal 04-16-2020 [facility] among non-blacks [facility] (31633) (S/P/Bld) [Vol rate/Area] Comment: Result Comment: eGFR [...] GFR. Performed By: #### HBA1C, CM P ####[facility] [address] [place], [place] [phone]- [phone] Glucose [Mass/Vol] 138 74-99 mg/dL High 04-16-[address] [facility] (35276) Comment: Result Comment: The [place] Diabetes Association (ADA) provides guidance for cutoff [...] diabetes. Reference: Standards of [facility] in Diabetes 2016, [place] Diabetes Association. Diabetes Care. 2016.39(Suppl 1). Performed By: #### HBA1C, CM P ####[place] [address] [address], [place] [phone] Potassium [Moles/Vol] 4.4 3.7-5.1 mmol/L Normal 04-16-[address] [facility] (15641) Comment: Performed By: #### HBA1C, CM P ####[place] [address] [address], [place] [phone] Protein [Mass/Vol] 7.9 6.3-8.0 g/dL Normal 04-16-[address] [facility] (30113) Comment: Performed By: #### HBA1C, CM P ####[place] [address] [address], [place] [phone] Sodium [Moles/Vol] 142 136-144 mmol/L Normal 04-16-[address] [facility] (21878) Comment: Performed By: #### HBA1C, CM P ####[place] [address] [address], [place] [phone] Urea nitrogen [Mass/Vol] 13 7-21 mg/dL Normal 04-[address] [facility] (91914) Comment: Performed By: #### HBA1C, CM P ####[place] [address] [address], [place] [phone] albumin/creat ratio on 2020-04-16 Albumin Urine Random 17.9 mg/L Normal [address] [facility] (04469) Comment: Performed By: #### UACR #### [place] [address] [place], [place] [phone] Albumin/Creat Ratio 12 <30 mg/g Normal 04-16-[address] [facility] (98685) Comment: Result Comment: Adult Male a nd [...] 3(1), 1-150. Performed By: #### UACR #### [facility] [place], [place] [phone] Creatinine,Urine,Ran 143.3 20-300 mg/dL Normal [address] [facility] (48183) Comment: Performed By: #### UACR #### [facility] [place], [place] [phone]- [phone] cnpn on 2020-04-10 CNPN Telephone (FAMWS) Normal 04-10-2020 [place] [facility] ABE STEVENSON ([id number]) 1960 [facility] Date Time Provider Department (66484) 04/10/20 [facility] During your visit today, we recorded the following informati on about you: Renate Velasco LPN 04/10/2020 11:56 AM Signed [place] with Angelica calling with plan of care for patient. Please advise Dottie PH: [phone]. 1.. Nursing for 2 to 3 times [...] insulin (HCC) [E11.9] Order(s):HOME BLOOD GLUCOSE MONITOR [L8411NXI] Order #: [id number] Lancets lancetsTest blood sugar(s) 1 times daily. [...] 04/10/20 progress on 2020-03 PROGRESS HNO ID: [id number] Normal 04-06-[address] [facility] Author: Carly Rogers ([id number]) Service: ? Author Type: Physician Type: Progress Notes Filed: 04/06/2020 3:10 PM Note Text: Noted Carly Rogers MD PROGRESS HNO ID: [id number] Normal 04-06-[address] [facility] Author: Cathy Salazar MA ([id number]) Service: ? Author Type: Senior Account Executive Type: Progress Notes Filed: 04/06/2020 3:10 PM Note Text: TRANSITION CARE MANAGEMENT (TCM) INITIAL CONTACT Senior Account Executive Outreach Provider Action/FYI: Initial contact with patient post discharge, spoke to pedro lazaro Patient identified by name and . TRANSITION CARE MANAGEMENT INITIAL OUTREACH DOCUMENTATION: Date of Outreach: 04/06/2020 04/06/2020 Outreach Attempt 1: Contact Made - Date of Discharge 04/05/2020 04/05/2020 Some recent data might be hidden SUMMARY: -Pt discharged from [facility] on 04/05/20. -Admitted for: Abcess right medial [...] CNPTOUTREACH Patient Outreach (FAMPWS) Normal 0 04-06-2020 [place] [facility] ABE STEVENSON ([id number]) 1960 [facility] Time Provider Department (65522) 04/06/20 CARLY ORGERSPWS During your visit today, we recorded the following informati on about you: Cathy Salazar MA, MA 04/06/2020 3:10 PM Signed TRANSITION CARE MANAGEMENT (TCM) INITIAL CONTACT Senior Account Executive Outreach Provider Action/FYI: Initial contact with patient post discharge, spoke to pedro lazaro Patient identified by name and . TRANSITION CARE MANAGEMENT INITIAL OUTREACH DOCUMENTATION: Date of Outreach: 04/06/2020 04/06/2020 Outreach Attempt 1: Contact Made - Date of Discharge 04/05/2020 04/05/2020 Some recent data might be hidden SUMMARY: -Pt discharged from [facility] on 04/05/20. -Admitted for: Abcess right medial [...] MD 04/06/2020 3:10 PM Signed Noted Carly Roegrs MD Allergies As of Date: 04/06/2020 Noted [...] 08/24/2019 Sick sinus syndrome (HCC) [I49.5] 08/24/2019 TC (obstructive sleep apnea) [G47.33] 08/24/2019 Obesity, Class III, BMI >= 40 [E66.01] 09/19/2019 Encounter Status:Closed by [facility]) Normal 04-06-2020 [place] [facility] ABE STEVENSON ([id number]) 1960 [place] Date Time Provider Department (80747) 04/06/20 [facility] During your visit today, we recorded the following informati on about you: Bea Santana RN 04/06/2020 10:34 AM Signed nurse Leticia from [facility] call ed, verified pt by [...] Ma - Fully Assessed Reason for Visit: alf care orders [Other] Prescriptions as of 04/06/2020 [...] on 2020-04-05 CNPN Telephone (FAMPWS) Normal 04-05-2020 [place] [facility] ABE STEVENSON ([id number]) 1960 [facility] Date Time Provider Department (05065) 04/05/20 [facility] During your visit today, we recorded the following informati on about you: Ruby Swenson Pss 04/05/2020 12:44 PM Signed Patient is calling to inform doctor that she has been admitt ed to [facility] earlier this week for a Diabetic [...] see how she is doing with [facility] also. MD Adriana Lance Ma 04/05/2020 4:54 [...] Refill (FAMPWS) Normal 03-26-2020 Jose Rafael janneth [facility] ABE STEVENSON ([id number]) 1960 [facility] Date Time Provider Department (79918) 03/26/20 [facility] ROGERS [facility] During your visit [...] 03/27/20 progress on 2020-03 PROGRESS HNO ID: [id number] Normal 03-23-2020 [facility] Author: Carly Rogers [place] ([id number]) Service: ? Author Type: Physician Type: Progress [...] by a spider and went to [facility] ER last year in June 12, 2019, [...] - TOTAL HIP JOINT REPLACEMENT Left 02/2018 [place] [facility] - TOTAL HIP JOINT REPLACEMENT Right 06/2018 [facility] Family History FAMILY HISTORY [...] capsule EVERY 6 HOURS - COMPOUNDED PRESCRIPTION Lyrically [employer] AirCurve 10 S VPAP machine with heated humidity and heated tubing. Pressure set to 22/16 cm H2O. [employer]. - atorvastatin (LIPITOR) 10 mg tablet Take [...] Histories in dependently gathered by the clinical research support specialist and the remaining scr ibed note accurately describes my personal service to the patient. Carly Rogers MD The documentation for this note was completed by Adriana chris Ma acting as scribe for Carly Rogers MD. March 23, 2020 8:46 AM. Adriana Haider Ma obsolete on 2020-03 OBSOLETE Refill (FAMPWS) Normal 03-22-2020 [facility] ABE [facility]EV[facility] ([id number]) 1960 [address] [place] Date Time Provider Department ([id number]) 03/22/20 CARLY ROGERS During your visit today, [...] by a spider and went to [facility] last year in June 12 2019, she [...] Date Reviewed: 11/20/2019 Reviewed by: Dinorah Milligan Grease Worker - Fully Assessed Reason for Visit: Refill [...] HAIDER MA on 03/22/20 [facility]noldn [facility] 2020[facility]02-[facility]) [facility] 02-06-2020 [place] ([id number]) 1960 [facility] Date Time Provider Department (74402) 02/06/20 REG BOWERS (ARNOLD) MICHPWS During your [...] provider's instruct ions. Patient verbalizes understanding. Bea Santnaa RN Allergies As of Date: 02/06/2020 Noted Allergy Reaction ENALAPRIL 01/17/2013 3 - Cough Date Reviewed: 11/20/2019 Reviewed by: Dinorah Milligan Grease Worker - Fully Assessed Reason for Visit: Results [95] Primary Visit Diagnosis:Elevated liver enzymes [R74.8] Other Visit Diagnoses:Essential hypertension [I10] Type 2 diabetes mellitus without complication, without long-term current use of insulin (HCC) [E11.9] Order(s):HGB A1C [LOQPX0C] Order #: [id number] FUTURE COMP METABOLIC PANEL [SQCMP] Order #: [id number] FUTURE ALBUMIN/CREAT RATIO RND UR [SQUACR] Order #: [id number] FUTU RE Prescriptions as of 02/06/2020 Sig: [...] Pnl Negative Negative Normal [address] [facility] (46243) Comment: Result Comment: Normal range : negative at a 1:20 serum dilution. Performed By: #### DEWAYNE, ALK P ####[facility] [place] [address] [phone] alkaline phosphatase on 2020-02-02 ALP [Catalytic activity/Vol] 142 34-123 U/L High 0 02-02-[address] [facility] (99563) Comment: Performed By: #### DEWAYNE, ALK P ####[facility] [address] [place], [place] [phone] us abd spleen -nb o n 2020-01-26 US ABD SPLEEN * * *Final Report* * * Normal [facility] - DATE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 07-02-2020 [facility] ([id number][facility] Mammography 09-19-2019 - 09-19-2019 [facility] ([id number]) Colonoscopy 03-07-2013 - 03-07-2013 [facility] ([id number]) Plan of Treatment Plan Description Date Location PAP TESTING PAP TESTING 09-19-2024 - [facility] 09-19-2024 ([id number]) ANNUAL PCP TEAM CHRONIC ANNUAL PCP TEAM CHRONIC 04-19-2021 - [facility] DISEASE VISIT DISEASE VISIT 04-19-2021 ([id number]) URINE ALBUMIN:CREATININE URINE ALBUMIN:CREATININE 04-16-2021 - [facility] RATIO RATIO 04-16-2021 ([id number]) LDL CHOLESTEROL LDL CHOLESTEROL 12-16-2020 - [facility] 12-16-2020 ([id number]) HBA1C HBA1C 10-16-2020 - [facility] 10-16-2020 ([id number]) MAMMOGRAM MAMMOGRAM 09-19-2020 - [facility] 09-19-2020 ([id number]) INFLUENZA (#1) INFLUENZA (#1) 2020 - [facility] 07-17-2020 ([id number]) DIABETIC FOOT EXAM DIABETIC FOOT EXAM 04-19-2020 - [facility] 04-19-2020 ([id number]) HPV TESTING HPV TESTING 07-11-2018 - [facility] 07-11-2018 ([id number]) COLONOSCOPY COLONOSCOPY 03-07-2018 - [facility] 03-07-2018 ([id number]) COLORECTAL CANCER COLORECTAL CANCER 03-07-2018 [facility] inic SCREENING,SEE MODIFIER SCREENING,SEE MODIFIER (2 [phone]) DILATED RETINAL EXAM DILATED RETINAL EXAM 11-12-2017 - [facility] 11-12-2017 ([id number]) SHINGRIX VACCINE (1 of SHINGRIX VACCINE (1 of 2010 - [facility] 2) 2) 2010 (55375) DTAP,TDAP,TD (1 - Tdap) DTAP,TDAP,TD (1 - Tdap) 1979 - [facility] 1979 ([id number]) BP CONTROLLED (<130/80) BP CONTROLLED (<130/80) 1978 - [facility] 1978 ([id number]) HEPATITIS C SCREENING HEPATITIS C SCREENING 1978 - [facility] 1978 ([id number]) HIV SCREENING HIV SCREENING 1978 - [facility] 1978 ([id number]) no information [facility] (16101) Immunizations Vaccine Notes Status Date Location Influenza Vaccine, influenza virus (completed) 08-03-2013 - [facility] Split-Non Spec vaccine, unspecified 08-03-2013 ([id number]) formulation Influenza Seasonal influenza, injectable, (completed) 08-24-2019 - [facility] Inj Quadrivalent Age quadrivalent, contains 08-24-2019 ([id number]) 3+ preservative Influenza Seasonal influenza, injectable, (completed) 10-11-2018 - [facility] Inj Quadrivalent Age quadrivalent, contains 10-11-2018 (29510) 3+ preservative Influenza Seasonal influenza, injectable, (completed) 10-25-2015 - [facility] Inj Quadrivalent Age quadrivalent, contains 10-25-2015 (01621) 3+ preservative Influenza Seasonal influenza, seasonal, (completed) 07-31-2014 [facility] Inj Age 3+ injectable 07-31-2014 ([id number]) Pneumococcal-13 Vac pneumococcal conjugate (completed) 09-06-2014 - [facility] Conjugate vaccine, 13 valent 09-06-2014 ([id number]) Pneumovax pneumococcal (completed) [facility] polys[facility], 03-12-2015 (441 95) 23 valent Influenza Recombinant Seasonal, trivalent, (completed) 08-31-2016 - [facility] Seasonal Inj PresFree recombinant, injectable 08-31-20 16 (30641) influenza vaccine, preservative free Payers Payer Name Policy Number Location EDDIE LEGER O [id number] [facility] ([id number]) [employer] MEDICARE [id number] [facility] (44 195) The following information is from the original human readable contentNo Payer Records Found Social History Type Social History Date Location Description Tobacco smoking status Current every day smoker 04-19-2020 - [facility] NHIS 04-19-2020 ([id number]) History of tobacco use Cigarette Smoker [facility] ([id number]) Cigarettes smoked 04-19-2020 - [facility] ic current (pack per day) 04-19-2020 (92947) - Reported Tobacco use and Never used 04-19-2020 - [facility] exposure 04-19-2020 (70603) Alcohol intake Current non-drinker of 04-19-2020 - [facility] alcohol (finding) 04-19-2020 (95341) Tobacco Comment 10 cigarettes per day 04-19-2019 - [facility] 04-19-2019 (72382) Alcohol Comment 2 drinks/month 05-25-2014 - [facility] 05-25-2014 (63634) Sex Assigned At Not on file [facility] ([id number]) The following information is from the original [...] Contact Closed Diagnoses Muscle cramps Carly Rogers [address] [place], [place] [address] Phone: Additional Source Comments FOR RECORDS PERTAINING [...] BE BASED ON THE PRIMARY CLINICAL RECORDS. [facility] provides no warranty or guarantee of the accuracy or completeness of information in this document. UNRECOGNIZED CONTENT PROVIDED BELOW FOR UNRECOGNIZED SECTION INFORMATION SOURCE DATE CREATED AUTHOR AUTHOR'S COREYDOREENO N 05/12/2018 [facility] DATE CREATED AUTHOR AUTHOR'S ORGANIZATIO N 08/20/2020 [facility] UNRECOGNIZED CONTENT PROVIDED BELOW FOR UNRECOGNIZED SECTION Source Comments In the event this information is protected by the Federal Confidentiality of Alcohol and Drug Abuse Patient Records regulations: The Federal rules restrict any use of the information to criminally investigate or prosecute any alcohol or drug abuse patient.[facility] the event this information is protected by the Federal Confidentiality of Alcohol and Drug Abuse Patient Records regulations: The Federal rules restrict any use of the information to criminally investigate or prosecute any alcohol or drug abuse patient.[facility] the event this information is protected by the Federal Confidentiality of Alcohol and Drug Abuse Patient Records regulations: The Federal rules restrict any use of the information to criminally investigate or prosecute any alcohol or drug abuse patient.[facility] the event this information is protected by the Federal Confidentiality of Alcohol and Drug Abuse Patient Records regulations: The Federal rules restrict any use of the information to criminally investigate or prosecute any alcohol or drug abuse patient.[facility] the event this information is protected by the Federal Confidentiality of Alcohol and Drug Abuse Patient Records regulations: The Federal rules restrict any use of the information to criminally investigate or prosecute any alcohol or drug abuse patient.[facility] UNRECOGNIZED CONTENT PROVIDED BELOW FOR UNRECOGNIZED [...]
--- OUTSIDE RECORDS SUMMARY | 2020-08-28 18:23 | XMS RPT_ITS | CCD ---
:1960 External Reference #:[id number] Author Organization [employer] Care Team Providers Name Role Phone [employer] Unavailable Unavailable NO REFERRING DR Mcdermott Unavailable DENISE SEGURA Unavailable Unavailable Carly Rogers Primary Care Provider Allergies Reported Allergen Reaction(s) Severity Date of Onset Location enalapril Translations: [ Cough 01-17-2013 - [facility] ENALAPRIL] System Reposito ry Medications Medication Name Sig Date Prescriber Location Acetaminophen acetaminophen (TYLENOL 01-29-2017 [facility] EXTRA STRENGTH) [address] (4419 5) tablet Indications: Chronic pain of left knee , Pain in right hip Take 1 tablet by mouth every 6 hours as needed for Pain. 120 tablet 2 01/29/2017 Active Comment: Take 1 tablet by mouth every 6 hours as needed for Pain. Amitriptyline amitriptyline (ELAVIL) 06-19-2020 Carly Manuel [facility] 10 mg tablet (25191) Indications: Depression, major, recurrent, mild (HCC) Take 1 tablet by mouth daily at bedtime. 30 tablet 5 06/19/2020 Active Comment: Take 1 tablet by mouth daily at bedtime. amLODIPine amLODIPine (NORVASC) 03-26-2020 Carly Manuel [facility] mg tablet Indications: (4419 5) Essential hypertension Take 1 tablet by mouth once daily. 30 tablet 03/26/2020 Active Comment: Take 1 tablet by mouth once daily. atorvastatin atorvastatin (LIPITOR) 05-21-2020 Carly Manuel [facility] 10 mg tablet (75895) Indications: Mixed hyperlipidemia Take 1 tablet by mouth once daily. 30 tablet 11 05/21/2020 Active Comment: Take 1 tablet by mouth once daily. benzonatate benzonatate (TESSALON 07-30-2020 Carly Manuel [facility] PERLMAMI) 100 mg capsule (4419 5) Indications: Cough Take 1 capsule by mouth three times daily as needed for Cough. 30 capsule 2 07/30/2020 Active benzonatate (TESSALON 03-23-2020 - [facility] 100 mg capsule 07-30-2020 (85649) Indications: Cough Take 1 capsule by mouth three times daily as needed for Cough. 30 capsule 2 03/23/2020 07/30/2020 Discontinued Comment: Take 1 capsule by mouth thre e times daily as needed for Cough. Cephalexin cephALEXin (KEFLEX) 500 mg 08-25-2019 [facility] Provider [facility] (79907) capsule EVERY 6 HOURS 0 08/25/2019 Active Comment: EVERY 6 HOURS COMPOUNDED COMPOUNDED 09-16-2019 Carly Manuel [facility] PRESCRIPTION PRESCRIPTION ResMed (83916) AirCurve 10 S VPAP machine with heated humidity and heated tubing. Pressure set to 22/16 cm H2O. [email or web address]. 0 09/16/2019 Active COMPOUNDED PRESCRIPTION ResMed 09-16-2019 Carly [facility] (56199) AirCurve 10 S VPAP machine with heated humidity and heated tubing. Pressure set to 22/16 cm H2O. [email or web address]. 0 09/16/2019 Active COMPOUNDED PRESCRIPTION ResMed 09-16-2019 Carly [facility] (71227) AirCurve 10 S VPAP machine with heated humidity and heated tubing. Pressure set to 22/16 cm H2O. [employer]. 0 09/16/2019 Active COMPOUNDED PRESCRIPTION ResMed 09-16-2019 Carly [facility] (81582) AirCurve 10 S VPAP machine with heated humidity and heated tubing. Pressure set to 22/16 cm H2O. [employer]. 0 09/16/2019 Active COMPOUNDED PRESCRIPTION ResMed 09-16-2019 Carly [facility] (65764) AirCurve 10 S VPAP machine with heated humidity and heated tubing. Pressure set to 22/16 cm H2O. [employer]. 0 09/16/2019 Active Comment: ResMed AirCurve 10 S VPAP ma elsa with heated humidity and heated tubing. Pressure set to 22/16 cm H2O . [employer]. cyclobenzaprine cyclobenzaprine 08-24-2019 - Carly Manuel [place] (FLEXERIL) 10 mg 08-20-2020 [facility] (441 95) tablet Indications: Muscle cramps Take 1 tablet by mouth three times daily as needed. 30 tablet 5 08/20/2020 Active Comment: Take 1 tablet by mouth three times daily as needed. dulaglutide dulaglutide (TRULICITY) 04-19-2020 Carly Manuel [facility] 0.75 mg/0.5 mL pnij (12608) Indications: Type 2 diabetes mellitus without complication, without long-term current use of insulin (HCC) Inject 0.75 mg subcutaneously one time a week. Inject dose once per week. Discard Pen After 4 Pen 5 04/19/2020 Active Comment: Inject 0.75 mg subcutaneousl y one time a week. Inject dose once per week. Discard Pen After telmisartan telmisartan (MICARDIS) 05-23-2020 aCrly Manuel [facility] 40 mg tablet Take 1 (32914) tablet by mouth once daily. 30 tablet 5 05/23/2020 Active Comment: Take 1 tablet by mouth once daily. Problems Active Problems Category Problem Name Status Date Location Cardiac dysrhythmias Sick sinus syndrome Active 08-24-2019 - [facility] (02180) Conduction disorders Cardiac pacemaker in Active 08-24-2019 - [facility] situ (71107) Diabetes mellitus Type 2 diabetes Active 03-29-2013 - [place] [facility] without complication mellitus without [facility] complications (43666) Disorders of lipid Hyperlipidemia, Active 03-29-2013 - [place] [facility] metabolism unspecified [facility] System (45093) Essential hypertension Essential (primary) Active 03-29-2013 - [place] [facility] hypertension [facility] (39811) Mood disorders Bipolar disorder, Active 12-21-2016 - [place] [facility] unspecified [facility] (40069) Nutritional deficiencies Vitamin D deficiency Active [facility] (55539) Osteoarthritis Unilateral primary Active 09-06-2015 - [place] [facility] osteoarthritis, right [facility] System hip (84488) Other connective tissue 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-2016 - [place] [facility] disease artificial hip joint Health System (60063) Other connective tissue Cramp Active [facility] disease (03296) Other inflammatory Rosacea Active 03-28-2013 - [facility] condition of skin (54664) Other lower respiratory Cough Active [facility] disease (92447) Other nervous system Other chronic pain Active 12-21-2016 - [facility] (89597) Other nervous system Sural neuropathy Active 06-02-2015 - [facility] disorders (14558) Other nutritional; Morbid obesity Active 09-19-2019 - [facility] endocrine; and metabolic (44 195) disorders Other nutritional; Obesity Active 03-29-2013 - [facility] endocrine; and metabolic (44 195) disorders Residual codes; Obstructive sleep apnea Active 08-24-2019 - [facility] unclassified syndrome (42263) Schizophrenia and other Schizophrenia, Active 12-21-2016 - [facility] psychotic disorders unspecified Health S [facility] (43011) Past or Other Problems Category Problem Name Status Date Location Other inflammatory Seborrheic Completed 03-28-2013 - [facility] condition of skin dermatitis (49437) Other non-traumatic Pain in right hip Completed 12-21-2016 - [facility] joint disorders [facility] Syste m (61548) Other screening for Magnetic resonance Completed 07-09-2017 - [facility] suspected conditions imaging of brain (44 195) (not mental disorders abnormal or infectious disease) Results Result Name Value Range Unit Interpretation Flag Date Location obsolete on 2020-08 OBSOLETE Refill (FAMPWS) Normal 08-20-2020 [facility] ABE STEVENSON ([id number]) 1960 [facility] Time Provider Department (42890) 08/20/20 CARLY ROGERS During your visit today, [...] Normal 07-30-2020 Jose [facility] [place] ABE Auguste ([id number]) 1960 [facility] Date Time Provider Department (70457) 07/30/20 CARLY ROGERS FAMPWS During your visit [...] 2020-07-24 [facility] Letter Text Normal 07-24-2020 [facility] (04117) obsolete on 2020-06 OBSOLETE Refill (FAMPWS) Normal 06-19-2020 Jose Rafael [place] [facility] ABE STEVENSON ([id number]) 1960 [facility] Date Time Provider Department (95182) 06/19/20 CARLY ROGERS During your visit today, [...] on 2020-06-15 CNPN Telephone (FAMPWS) Normal 06-15-2020 [place] [facility] ABE STEVENSON ([id number]) 1960 Kade[address] [place] Date Time Provider Department (56494) 06/15/20 CARLY ROGERS During your visit today, we recorded the following informati on about you: Macie Lloyd MA 06/15/2020 8:42 AM Signed Received forms for pt from [facility], requesting verification of disability. Please review forms, complete, then fax back to [phone]. Macie Rogers MD 06/18/2020 5:11 PM Signed [...] (FAMPWS) Normal 06-11-2020 [facility] ABE STEVENSON ([id number]) 1960 [place] Date Time Provider Department (02876) 06/11/20 CARLY ROGERS During your visit today, we recorded the following informati on about you: Bea Santana RN 06/11/2020 2:44 PM Signed Archana from [facility] tayla led, verified pt by [...] on 2020-05-23 CNPN Telephone (FAMPWS) Normal 05-23-2020 [place] ABE STEVENSON ([id number]) 1960 [facility] Date Time Provider Department (66521) 05/23/20 CARLY ROGERS During your visit today, we recorded the following informati on about you: Carley Whiting PACO 05/23/2020 2:50 PM Signed today 162/88 pulse 88 slight headache in the morning. Headache relieved with Tylen ol. Taking amlodipine every morning . Patient had office visit [facility] Dr Carrero yesterday, she said [...] She will update pt and advise she filler picker medication. Macie Lloyd MA Allergies As [...] Refill (FAMPWS) Normal 05-21-2020 Jose [place] [facility] GRAHAMABE FALK ([id number]) 1960 [facility] Date Time Provider Department (41711) 05/21/20 CARLY ROGERS During your visit today, [...] on 2020-05-09 CNPN Telephone (FAMWS) Normal 05-09-2020 [place] [facility] ABE STEVENSON ([id number]) 1960 [place] Date Time Provider Department (14873) 05/09/20 CARLY ROGERS During your visit today, we recorded the following informati on about you: Renate Denis RN 05/09/2020 2:11 PM Signed Nurse Kassandra calls from [facility]. Did woun d care on [...] review and advise. Please call Kassandra at [phone] with any new orders. DORINA Tracey MD [...] 2020-05-04 CNPN Telephone (FAMPWS) Normal 05-04-2020 [place] [facility] ABE STEVENSON ([id number]) 1960 [facility] Date Time Provider Department (76020) 05/04/20 CARLY ROGERS During your visit today, [...] [facility] Adriana Haider Ma Allergies As of [...] 05/04/20 progress on 2020-04 PROGRESS HNO ID: [id number] Normal 04-19-2020 [facility] Author: Carly Rogers [place] ([id number]) Service: ? Author Type: Physician Type: Progress [...] and agrees. Pt currently residing at [facility]. Has been there since November. Hoping to [...] of her supplies and Kindr rosaura [facility] takes care of the wound. Has been given rx's for Valium 5 mg and Percocet 5-325 mg - hasn't been taking. Past medical history, appointments, medications, allergies nancy parisi. Previous Medical History PAST MEDICAL HISTORY Diagnosis Date - Arthritis, hip - Diabetes mellitus (HCC) 03/2012 - Family history of colon cancer Father 55 - Family history of premature coronary artery disease mother [place] at 50 - History of colon polyps [...] Onset - Coronary Artery Disease Mother 50 [place] - Diabetes Mother 40 age 68 - [...] capsule EVERY 6 HOURS - COMPOUNDED PRESCRIPTION [employer] AirCurve 10 S VPAP machine with heated humidity and heated tubing. Pressure set to 22/16 cm H2O. Formula XO. - atorvastatin (LIPITOR) 10 mg tablet Take [...] AGE 65 Completed INFLUENZA Completed Data reviewed [facility] Appointment on 04/16/2020 Component Date Value [...] Histories in dependently gathered by the clinical support dba and the remaining scr ibed note accurately describes my personal service to the patient. Carly Rogers MD The documentation for this note was completed by Macie cruz MA acting as scribe for Carly Rogers MD. April 19, 2020 9:37 AM. Macie shortov on 2020-04-19 CNOV Office Visit (FAMPWS) Normal 04-19-[address] [place] [address] [facility] ABE STEVENSON ([id number]) 1960 [facility] Date Time Provider Department (80358) 04/19/20 9:40 AM CARLY ROGERS During your [...] and agrees. Pt currently residing at [facility] [employer] [facility]. Has been there since November. Hoping to [...] Center takes care of her supplies and [facility] takes care of the wound. Has [...] history of premature coronary artery disease mother [place] at 50 - History of colon polyps 03/07/2013 - HTN (hypertension) - Hyperlipemia - Obesity - Rosacea - Seborrheic dermatitis - Vitamin D deficiency Previous Surgical History PAST SURGICAL HISTORY Procedure Laterality Date - COLONOSCOPY AND POLYPECTOMY 03/07/13 repeat due 2018, tubular adenoma - PAST SURGICAL HISTORY OF cyst removed from uterus while - TOTAL HIP JOINT REPLACEMENT Left 02/2018 [facility] - TOTAL HIP JOINT REPLACEMENT Right 06/2018 [facility] Family History FAMILY HISTORY Problem Relation Age of Onset - Coronary Artery Disease Mother 50 [place] - Diabetes Mother 40 age 68 - [...] capsule EVERY 6 HOURS - COMPOUNDED PRESCRIPTION [employer] AirCurve 10 S VPAP machine with heated humidity and heated tubing. Pressure set to 22/16 cm H 2O. [email or web address]. - atorvastatin (LIPITOR) 10 mg tablet Take [...] AGE 65 Completed INFLUENZA Completed Data reviewed [facility] Appointment on 04/16/2020 Component Date Value [...] Histories in dependently gathered by the clinical support dba and the remaining scr ibed note accurately describes my personal service to the patient. Carly Rogers MD The documentation for this note was completed by Macie cruz MA acting as scribe for Carly Rogers MD. April 19, 2020 9:37 AM. Macie Lloyd MA Referring Provider: CARLY ROGERS [[id number]] Allergies As of Date: 04/19/2020 Noted Allergy [...] Pen AfterDisp: 4 PenRfl: 5 HGB A1C [KIBEC2N] Order #: [id number] FUTURE COMP METABOLIC PANEL [SQCMP] Order #: [id number] FUTURE LIPID PANEL BASIC [SQLIPB] Order #: [id number] FUTURE Prescriptions as of 04/19/2020 Sig: LANCETS [...] on 2020-04-17 CNPN Telephone (FAMPWS) Normal 04-17-2020 [place] [facility] ABE STEVENSON ([id number]) 1960 [facility] Date Time Provider Department (33130) 04/17/20 [facility] During your visit today, we recorded the following informati on about you: Bea Santana RN 04/17/2020 3:39 PM Signed Leticia from [facility] called, verified pt by name and birthdate. Leticia states she met with pt and pt was not acting right. Pt reportedly wore her sunglasses for entire visit and was very withdrawn. Leticia states [facility] told her that pt wears her [...] HbA1c (Bld) [Mass fraction] 171 mg/dL Normal [facility] (70150) Comment: Result Comment: eAG: (Estima jayna average glucose) is a calculated value from HgbA1c and is school admissions representative of the average blood glucose level in the last 2-3 month period. Performed By: #### HBA1C, CM P ####[address] [phone] HbA1c (Bld) [Mass fraction] 7.6 4.3-5.6 % High [facility] (11037) Comment: Result Comment: [place] [employer] guidelines indicate that patients with HgbA1c in the range 5.7-6.4% are at increased risk for development of diabetes, and intervention by lifestyle modification may be beneficial. HgbA1c greater o r equal to 6.5% is considered diagnostic of diabetes. Performed By: #### HBA1C, CM P ####[place] [address] [address], [place] [phone]- [phone] comp metabolic panel on 2020-04-16 Albumin [Mass/Vol] 4.1 3.9-4.9 g/dL Normal 04-16-2020 [facility] (27786) Comment: Performed By: #### HBA1C, CM P ####[address] [phone] ALP [Catalytic activity/Vol] 120 34-123 U/L Normal 0 04-16-2020 [facility] (17430) Comment: Performed By: #### HBA1C, CM P ####[facility], [place] [phone] ALT [Catalytic activity/Vol] 32 7-38 U/L Normal 0 04-16-2020 [facility] (51373) Comment: Performed By: #### HBA1C, CM P ####[place] [address] [address], [place] [phone]- [phone] Anion gap [Moles/Vol] 16 9-18 mmol/L Normal 04-16-20 20 [facility] (78166) Comment: Performed By: #### HBA1C, CM P ####[place] [address] [address], [place] [phone]- [phone] AST [Catalytic activity/Vol] 35 13-35 U/L Normal 0 04-16-2020 [facility] (75280) Comment: Performed By: #### HBA1C, CM P ####[place] [address] [address], [place] [phone] Bilirubin [Mass/Vol] 0.2 0.2-1.3 mg/dL Normal 0 [facility] (16496) Comment: Performed By: #### HBA1C, CM P ####[place] [address] [address], [place] [phone]- [phone] Calcium [Mass/Vol] 10.6 8.5-10.2 mg/dL High 04-16-2020 [facility] (84523) Comment: Performed By: #### HBA1C, CM P ####[place] [address] [address], [place] [phone] Chloride [Moles/Vol] 105 97-105 mmol/L Normal 0 [facility] (60238) Comment: Performed By: #### HBA1C, CM P ####[place] [address] [address], [place] [phone] CO2 [Moles/Vol] 21 22-30 mmol/L Low 04-16-2020 [facility] (64606) Comment: Performed By: #### HBA1C, CM P ####[facility] [address], [place] [phone] Creatinine [Mass/Vol] 0.79 0.58-0.96 mg/dL Normal 04-16-20 20 [facility] (57854) Comment: Performed By: #### HBA1C, CM P ####[facility] [address], [place] [phone]- [phone] eGFR- Amer. >60 Normal 04-16-2020 [facility] (65170) Comment: Performed By: #### HBA1C, CM P ####[facility] [place] [address] [phone] GFR/1.73 sq M predicted >60 mL/min/{1.73_m2} Normal 04-16-2020 [facility] among non-blacks [facility] (00669) (S/P/Bld) [Vol rate/Area] Comment: Result Comment: eGFR [...] GFR. Performed By: #### HBA1C, CM P ####[facility] [address] [place], [place] [phone]- [phone] Glucose [Mass/Vol] 138 74-99 mg/dL High 04-16-2020 [facility] (63500) Comment: Result Comment: The [place] Diabetes Association (ADA) provides guidance for cutoff [...] for diagnosis of diabetes. Reference: Standards of [facility] in Diabetes 2016, [place] Diabetes Association. Diabetes Care. 2016.39(Suppl 1). Performed By: #### HBA1C, CM P ####[place] [address] [address], [place] [phone]- [phone] Potassium [Moles/Vol] 4.4 3.7-5.1 mmol/L Normal 04-16-20 [facility] (39900) Comment: Performed By: #### HBA1C, CM P ####[place] [address] [address], [place] [phone] Protein [Mass/Vol] 7.9 6.3-8.0 g/dL Normal 04-16-2020 [facility] (04545) Comment: Performed By: #### HBA1C, CM P ####[place] [address] [address], [place] [phone] Sodium [Moles/Vol] 142 136-144 mmol/L Normal 04-16-2020 [facility] (77559) Comment: Performed By: #### HBA1C, CM P ####[place] [address] [address], [place] [phone]- [phone] Urea nitrogen [Mass/Vol] 13 7-21 mg/dL Normal 04-16 [facility] (89070) Comment: Performed By: #### HBA1C, CM P ####[place] [address] [address], [place] [phone] albumin/creat ratio on 2020-04-16 Albumin Urine Random 17.9 mg/L Normal 0 [facility] (22928) Comment: Performed By: #### UACR #### [place] [address] [place], [place] [phone] Albumin/Creat Ratio 12 <30 mg/g Normal 04-16-2020 [facility] (21428) Comment: Result Comment: Adult Male a nd [...] 3(1), 1-150. Performed By: #### UACR #### [facility] [place], [place] [phone] Creatinine,Urine,Ran 143.3 20-300 mg/dL Normal 0 [facility] (77535) Comment: Performed By: #### UACR #### [facility] [place], [place] [phone]- [phone] cnpn on 2020-04-10 CNPN Telephone (FAMWS) Normal 04-10-2020 [place] [facility] ABE STEVENSON ([id number]) 1960 [facility] Date Time Provider Department (28961) 04/10/20 [facility] During your visit today, we recorded the following informati on about you: Renate Velasco LPN 04/10/2020 11:56 AM Signed Dottie with [facility] calling with plan of care for patient. Please advise Dottie PH: [phone]. 1.. Nursing for 2 to 3 times [...] insulin (HCC) [E11.9] Order(s):HOME BLOOD GLUCOSE MONITOR [Y1386NMG] Order #: [id number] Lancets lancetsTest blood sugar(s) 1 times daily. [...] 04/10/20 progress on 2020-03 PROGRESS HNO ID: [id number] Normal 04-06-2020 [facility] Author: Carly Rogers ([id number]) Service: ? Author Type: Physician Type: Progress Notes Filed: 04/06/2020 3:10 PM Note Text: Noted Carly Rogers MD PROGRESS HNO ID: [id number] Normal 04-06-2020 [facility] Author: Cathy Salazar MA ([id number]) Service: ? Author Type: Food Demonstrator Type: Progress Notes Filed: 04/06/2020 3:10 PM Note Text: TRANSITION CARE MANAGEMENT (TCM) INITIAL CONTACT Food Demonstrator Outreach Provider Action/FYI: Initial contact with patient post discharge, spoke to pedro lazaro Patient identified by name and . TRANSITION CARE MANAGEMENT INITIAL OUTREACH DOCUMENTATION: Date of Outreach: 04/06/2020 04/06/2020 Outreach Attempt 1: Contact Made - Date of Discharge 04/05/2020 04/05/2020 Some recent data might be hidden SUMMARY: -Pt discharged from [facility] on 04/05/20. -Admitted for: Abcess right [...] ? Yes Medical records from recent hospitalization: [facility] cnptoutreach on CNPTOUTREACH Patient Outreach (FAMPWS) Normal 0 04-06-2020 [place] [facility] ABE STEVENSON ([id number]) 1960 [facility] Time Provider Department (61266) 04/06/20 CARLY ROGERSPWS During your visit today, we recorded the following informati on about you: Cathy Salazar MA, MA 04/06/2020 3:10 PM Signed TRANSITION CARE MANAGEMENT (TCM) INITIAL CONTACT Food Demonstrator Outreach Provider Action/FYI: Initial contact with patient post discharge, spoke to pedro lazaro Patient identified by name and . TRANSITION CARE MANAGEMENT INITIAL OUTREACH DOCUMENTATION: Date of Outreach: 04/06/2020 04/06/2020 Outreach Attempt 1: Contact Made - Date of Discharge 04/05/2020 04/05/2020 Some recent data might be hidden SUMMARY: -Pt discharged from [facility] on 04/05/20. -Admitted for: Abcess right [...] Status:Closed by CARLY ROGERS [facility]FAMPWS) Normal 04-06-2020 [place] [facility] ABE STEVENSON ([id number]) 1960 [place] Date Time Provider Department (12997) 04/06/20 [facility] During your visit today, we recorded the following informati on about you: Bea Santana RN 04/06/2020 10:34 AM Signed nurse Leticia from [facility] call ed, verified pt by [...] Ma - Fully Assessed Reason for Visit: longterm care orders [Other] Prescriptions as of 04/06/2020 [...] on 2020-04-05 CNPN Telephone (FAMPWS) Normal 04-05-2020 [place] [facility] ABE STEVENSON ([id number]) 1960 [facility] Date Time Provider Department (06845) 04/05/20 [facility] During your visit today, we recorded the following informati on about you: Ruby Swenson Pss 04/05/2020 12:44 PM Signed Patient is calling to inform doctor that she has been admitt ed to [facility] System earlier this week for a Diabetic [...] see how she is doing with the [facility] also. MD Adriana Lance Ma [...] Refill (FAMPWS) Normal 03-26-2020 Jose Rafael janneth [facility] ABE STEVENSON ([id number]) 1960 [facility] Date Time Provider Department ([id number]) 03/26/20 CARLY ROGERS [place] During your visit [...] 03/27/20 progress on 2020-03 PROGRESS HNO ID: [id number] Normal 03-23-2020 [facility] Author: Carly Rogers [place] ([id number]) Service: ? Author Type: Physician Type: Progress [...] bitten by a spider and went to [facility] ER last year in June 12, [...] half ppd. Doing well; [facility] looking for apartment ; stress level good. Past medical history, appointments, medications, allergies nancy parisi. Previous Medical History PAST MEDICAL HISTORY Diagnosis Date - Arthritis, hip - Diabetes mellitus (HCC) 03/2012 - Family history of colon cancer Father 55 - Family history of premature coronary artery disease mother [place] at 50 - History of colon polyps 03/07/2013 - HTN (hypertension) - Hyperlipemia - Obesity - Rosacea - Seborrheic dermatitis - Vitamin D deficiency Previous Surgical History PAST SURGICAL HISTORY Procedure Laterality Date - COLONOSCOPY AND POLYPECTOMY 03/07/13 repeat due 2017, tubular adenoma - PAST SURGICAL HISTORY OF cyst removed from uterus while - TOTAL HIP JOINT REPLACEMENT Left 02/2018 [facility] - TOTAL HIP JOINT REPLACEMENT Right 06/2018 [facility] Family History FAMILY HISTORY Problem Relation Age of Onset - Coronary Artery Disease Mother 50 [place] - Diabetes Mother 40 age 68 - Colon Cancer Father 55 age 58 - Diabetes Sister 60 - Arthritis Sister - Osteoporosis Sister Patient Allergies ALLERGIES Allergen Reactions - Enalapril Cough Current Medications Current Outpatient Medications on File Prior to Visit Medication Sig - cephALEXin (KEFLEX) 500 mg capsule EVERY 6 HOURS - COMPOUNDED PRESCRIPTION [employer]My[employer] AirCurve 10 S VPAP machine with heated humidity and heated tubing. Pressure set to 22/16 cm H2O. Formula XO. - atorvastatin (LIPITOR) 10 mg tablet Take [...] Histories in dependently gathered by the clinical support dba and the remaining scr ibed note accurately describes my personal service to the patient. Carly Rogers MD The documentation for this note was completed by Adriana chris Ma acting as scribe for Carly Rogers MD. March 23, 2020 8:46 AM. Adriana Haider Ma obsolete on 2020-03 OBSOLETE Refill (FAMPWS) Normal 03-22-2020 Jose Rafael janneth [facility]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 Filed: 09/20/2019 11:34 PM Note Text: September 19, 2019 PID: [id number] Abe Stevenson [address] [place] [address] Dear Ms. Stevenson, We are pleased to [...] be kept on file at [facility] as part of your permanent medical record and are available f or your continuing care. Thank you for allowing us to help in meeting your health car e needs. Sincerely, Dr. Jones Interpreting Radiologist [facility] (Normal over 40) bact/cand vag grm st on 2019-09-19 Bact/Cand Vag Grm Sp. Request/Comment: - Swab Norm al 09-19-2019 [facility] ([id number]) Smear Result - BACTERIAL VAG INOSIS RESULT: Stain results indicate mixed morphotypes consistent with transition from normal vaginal marquise. No Polymorphonuclear Leukocytes Few Epithelial cells No Yeast observed Comment: Performed By: #### BVCNSM ## ## [facility] [address] [place], [place] [address] progress on 2019-08 PROGRESS HNO ID: [id number] Normal 08-24-2019 [facility] Author: Carly Rogers [place] ([id number]) Service: ? Author Type: Physician Type: Progress [...] Cardio, Dr. Carrero. 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 2 year degree in [employer] design. 1 son Moved from [place] Used to swim daily EXAM: BP 130/80 [...] 65 Completed Data reviewed Hospital reports from [facility] 08/06/19-08/09/19 ASSESSMENT/PLAN: 1. Essential hypertension - [...] Histories in dependently gathered by the clinical support dba and the remaining scr ibed note accurately describes my personal service to the patient Carly Rogers MD The documentation for this note was completed by Adriana chris Ma acting as scribe for Carly Rogers MD. August 24, 2019 9:43 AM . cnov on 2019-08-24 CNOV Office Visit (FAMPWS) Normal 08-24-20 19 [facility] ABE STEVENSON ([id number]) 1960 [facility] Date Time Provider Department ([id number]) 08/24/19 10:00 AM CARLY ROGERS During your visit today, we recorded the following informati on about you: Temperature Pulse Respiration Blood pressure 97.7 degrees 74/minute 18/minute 130/80 Weight 105.2 kg Carly Rogers MD 08/24/2019 11:27 AM Signed Chief Complaint Patient presents with: Hospital Follow Up Imm/Inj: Flu Vaccine HPI Abe Stevenson is a 58 year old female who presents here t [facility] for hospital follow up. Pt is not a TCM as she was scheduled outside of the 14 day [facility] frame. Was unable to reach pt to reschedule sooner. Had a pacemaker placed, is following with Cardio, Dr. Carrero. Was admitted to the [facility] on 08/06/19 till 08/09/19 for dizziness [...] history of premature coronary artery disease mother [place] at 50 - History of colon polyps 03/07/2013 - HTN (hypertension) - Hyperlipemia - Obesity - Rosacea - Seborrheic dermatitis - Vitamin D deficiency Previous Surgical History PAST SURGICAL HISTORY Procedure Laterality Date - COLONOSCOPY AND POLYPECTOMY 03/07/13 repeat due 2017, tubular adenoma - PAST SURGICAL HISTORY OF cyst removed from uterus while - TOTAL HIP JOINT REPLACEMENT Left 02/2018 [facility] - TOTAL HIP JOINT REPLACEMENT Right 06/2018 [facility] Family History FAMILY HISTORY Problem Relation Age of Onset - Colon Cancer Father 55 age 58 - Coronary Artery Disease Mother 50 [place] - Diabetes Mother 40 age 68 - [...] Not on file 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 2 year degree in [employer] design. 1 son Moved from [place] Used to swim daily EXAM: BP 130/80 [...] 65 Completed Data reviewed Hospital reports from [facility] 08/06/19-08/09/19 ASSESSMENT/PLAN: 1. Essential hypertension - [...] Histories in dependently gathered by the clinical support dba and the remaining scr ibed note accurately [...] QUADRIVALENT AGE 3 YRS PLUS + IM [[id number]] Order #: [id number] losartan (COZAAR) 50 mg tabletTake 1 tablet [...] Provider Location 06-25-2020 - Documentation External Provider [facility] 06-25-2020 procedure 12-21-2016 - Emergency department Pain in right INC GEMS NO Facili ty:[facility] 12-21-2016 patient visit hip REFERRING DR [facility] 07-24-2020 - Letter encounter Carly Rogers [facility] 07-24-2020 [place] 07-02-2020 - Patient encounter External Provider [facility] 07-02-2020 procedure 06-25-2020 Patient encounter External Provider [facility] procedure 08-20-2020 - Refill Cramp Carly Manuel [facility] icine 08-20-2020 [place] Comment: Refill Request 07-30-2020 - 07-30-2020 Refill Cough Carly Manuel [facility] [place] Comment: Refill Request 07-02-2020 Results Only External Provider External-N [facility] Procedures Procedure Name Date Provider Location [facility] [id number][facility] Mammography 09-19-2019 - 09-19-2019 [facility] ([id number]) Colonoscopy 03-07-2013 - 03-07-2013 [facility] ([id number]) Plan of Treatment Plan Description Date Location PAP TESTING PAP TESTING 09-19-2024 - [facility] 09-19-2024 ([id number]) ANNUAL PCP TEAM CHRONIC ANNUAL PCP TEAM CHRONIC 04-19-2021 - [facility] DISEASE VISIT DISEASE VISIT 04-19-2021 ([id number]) URINE ALBUMIN:CREATININE URINE ALBUMIN:CREATININE 04-16-2021 - [facility] RATIO RATIO 04-16-2021 ([id number]) LDL CHOLESTEROL LDL CHOLESTEROL 12-16-2020 - [facility] 12-16-2020 ([id number]) HBA1C HBA1C 10-16-2020 - [facility] 10-16-2020 ([id number]) MAMMOGRAM MAMMOGRAM 09-19-2020 - [facility] 09-19-2020 ([id number]) INFLUENZA (#1) INFLUENZA (#1) 2020 - [facility] 07-17-2020 ([id number]) DIABETIC FOOT EXAM DIABETIC FOOT EXAM 04-19-2020 - [facility] 04-19-2020 ([id number]) HPV TESTING HPV TESTING 07-11-2018 - [facility] 07-11-2018 ([id number]) COLONOSCOPY COLONOSCOPY 03-07-2018 - [facility] 03-07-2018 ([id number]) COLORECTAL CANCER COLORECTAL CANCER 03-07-2018 [facility] inic SCREENING,SEE MODIFIER SCREENING,SEE MODIFIER ([id number]) DILATED RETINAL EXAM DILATED RETINAL EXAM 11-12-2017 - [facility] 11-12-2017 ([id number]) SHINGRIX VACCINE (1 of SHINGRIX VACCINE (1 of 2010 - [facility] 2) 2) 2010 ([id number]) DTAP,TDAP,TD (1 - Tdap) DTAP,TDAP,TD (1 - Tdap) 1979 - [facility] 1979 ([id number]) BP CONTROLLED (<130/80) BP CONTROLLED (<130/80) 1978 - [facility] 1978 ([id number]) HEPATITIS C SCREENING HEPATITIS C SCREENING 1978 - [facility] 1978 ([id number]) HIV SCREENING HIV SCREENING 1978 - [facility] 1978 ([id number]) no information [facility] ([id number]) Immunizations Vaccine Notes Status Date Location Influenza Vaccine, influenza virus (completed) 08-03-2013 - [facility] Split-Non Spec vaccine, unspecified 08-03-2013 (4419 [id number]) formulation Influenza Seasonal influenza, injectable, (completed) 08-24-2019 - [facility] Inj Quadrivalent Age quadrivalent, contains 08-24-2019 (90669) 3+ preservative Influenza Seasonal influenza, injectable, (completed) 10-11-2018 - [facility] Inj Quadrivalent Age quadrivalent, contains 10-11-2018 (21714) 3+ preservative Influenza Seasonal influenza, injectable, (completed) 10-25-2015 - [facility] Inj Quadrivalent Age quadrivalent, contains 10-25-2015 (25518) 3+ preservative Influenza Seasonal influenza, seasonal, (completed) 07-31-2014 [facility] Inj Age 3+ injectable 07-31-2014 (40706) Pneumococcal-13 Vac pneumococcal conjugate (completed) 09-06-2014 - [facility] Conjugate vaccine, 13 valent 09-06-2014 (27228) Pneumovax pneumococcal ([facility]) [facility], 03-12-2015 (441 95) 23 valent Influenza Recombinant Seasonal, trivalent, (completed) 08-31-2016 - [facility] Seasonal Inj PresFree recombinant, injectable 08-31-20 16 (95015) influenza vaccine, preservative free Payers Payer Name Policy Number Location EDDIE LEGER O [id number] [facility] ([id number]) [employer] MEDICARE [id number] [facility] (44 195) The following information is from the original human readable contentNo Payer Records Found Social History Type Social History Date Location Description Tobacco smoking status Current every day smoker 04-19-2020 - [facility] NHIS 04-19-2020 ([id number]) History of tobacco use Cigarette Smoker [facility] ([id number]) Cigarettes smoked 04-19-2020 - [facility] ic current (pack per day) 04-19-2020 (41793) - Reported Tobacco use and Never used 04-19-2020 - [facility] exposure 04-19-2020 (24205) Alcohol intake Current non-drinker of 04-19-2020 - [facility] alcohol (finding) 04-19-2020 (71807) Tobacco Comment 10 cigarettes per day 04-19-2019 - [facility] 04-19-2019 (61404) Alcohol Comment 2 drinks/month 05-25-2014 - [facility] 05-25-2014 (31947) Sex Assigned At Not on file [facility] ([id number]) The following information is from the original [...] premature coronary artery disease 04/17/2020 Overview: mother [place] at 50 Arthritis, hip 04/17/2020 Problem Noted Date Resolved Date Peripheral polyneuropathy 07/09/2017 04/17/2020 Skin lesion, superficial 06/15/2015 04/17/2020 Right leg pain 06/07/2015 04/17/2020 Abdominal pain, unspecified site 05/12/2015 020 Anal fissure 07/31/2014 04/17/2020 History of colon polyps 03/07/2013 04/17/2020 Family history of colon cancer 0 Overview: Father 55 Family history of premature coronary artery disease 04/17/2020 Overview: mother [place] at 50 Arthritis, hip 04/17/2020 Problem Noted Date Resolved Date Peripheral polyneuropathy 07/09/2017 04/17/2020 Skin lesion, superficial 06/15/2015 04/17/2020 Right leg pain 06/07/2015 04/17/2020 Abdominal pain, unspecified site 05/12/2015 020 Anal fissure 07/31/2014 04/17/2020 History of colon polyps 03/07/2013 04/17/2020 Family history of colon cancer 0 Overview: Father 55 Family history of premature coronary artery disease 04/17/2020 Overview: mother [place] at 50 Arthritis, hip 04/17/2020 Assessments Diagnosis Cough Diagnosis Muscle cramps Cramp of limb Reason for Referral Status Reason Specialty Diagnoses / Procedures Referred By C ontact Referred To Contact Closed Diagnoses Muscle cramps Carly Rogers [address] [place], [place] [address] Phone: Additional Source Comments FOR RECORDS PERTAINING [...] BE BASED ON THE PRIMARY CLINICAL RECORDS. [facility] provides no warranty or guarantee of the accuracy or completeness of information in this document. UNRECOGNIZED CONTENT PROVIDED BELOW FOR UNRECOGNIZED SECTION INFORMATION SOURCE DATE CREATED AUTHOR AUTHOR'S COREYDOREENO N 05/12/2018 [facility] DATE CREATED AUTHOR AUTHOR'S ORGANIZATIO N 08/20/2020 [facility] UNRECOGNIZED CONTENT PROVIDED BELOW FOR UNRECOGNIZED SECTION Source Comments In the event this information is protected by the Federal Confidentiality of Alcohol and Drug Abuse Patient Records regulations: The Federal rules restrict any use of the information to criminally investigate or prosecute any alcohol or drug abuse patient.[facility] the event this information is protected by the Federal Confidentiality of Alcohol and Drug Abuse Patient Records regulations: The Federal rules restrict any use of the information to criminally investigate or prosecute any alcohol or drug abuse patient.[facility] the event this information is protected by the Federal Confidentiality of Alcohol and Drug Abuse Patient Records regulations: The Federal rules restrict any use of the information to criminally investigate or prosecute any alcohol or drug abuse patient.[facility] the event this information is protected by the Federal Confidentiality of Alcohol and Drug Abuse Patient Records regulations: The Federal rules restrict any use of the information to criminally investigate or prosecute any alcohol or drug abuse patient.[facility] the event this information is protected by the Federal Confidentiality of Alcohol and Drug Abuse Patient Records regulations: The Federal rules restrict any use of the information to criminally investigate or prosecute any alcohol or drug abuse patient.[facility] UNRECOGNIZED CONTENT PROVIDED BELOW FOR UNRECOGNIZED SECTION [...]
== END 2020-04-12 09:13 | disposition home or self-care (01) ==
LOC: ED 08:37
PROVIDERS: Emergency Provider Emergency Medicine; PCP Family Medicine
DX: R11.2 Nausea with vomiting, unspecified (principal); T36.0X5A Adverse effect of penicillins, initial encounter; Y92.9 Unspecified place or not applicable; I10 Essential (primary) hypertension; E11.9 Type 2 diabetes mellitus without complications; E78.00 Pure hypercholesterolemia, unspecified; Z95.0 Presence of cardiac pacemaker; Z79.84 Long term (current) use of oral hypoglycemic drugs; Z79.899 Other long term (current) drug therapy; Z72.0 Tobacco use
CPT/HCPCS: 74176; 80053; 83690; 84484; 85025; 93005; 96361; 96374; 99285; J7030; A4216; J2405

== ENCOUNTER 2020-05-14 14:00 | Outpatient (RCR) | payer MEDICARE, SELFPAY ==
[2020-04-16 08:42] VITALS: BP 170/77; PULSE 89; RESP 20; TEMP 36.6; BMI 43.2
--- NOTE | 2020-04-16 16:21 | PN.PCM_ITS ---
(1) Open wound of right thigh Status: Acute Current Visit: Yes Code(s): S71.101A - Unspecified open wound, right thigh, initial encounter (2) Diabetes mellitus type 2 in obese Status: Chronic Current Visit: Yes Code(s): E11.69 - Type 2 diabetes mellitus with other specified complication; E66.9 - Obesity, unspecified (3) Anxiety and depression Status: Chronic Current Visit: Yes Code(s): F41.9 - Anxiety disorder, unspecified; F32.9 - Major depressive disorder, single episode, unspecified (4) Abscess of right thigh Status: Acute Current Visit: No Code(s): L02.415 - Cutaneous abscess of right lower limb (5) Necrotizing soft tissue infection Status: Acute Current Visit: No Code(s): M79.89 - Other specified soft tissue disorders (6) Nicotine dependence Status: Chronic Current Visit: Yes Code(s): F17.200 - Nicotine dependence, unspecified, uncomplicated Type of Wound Date of Service: 04/16/20 Chief Complaint: Right upper medial thigh ulcer History of Wound: Surgery on 04/03/20 for Surgical preparation right upper medial thigh with incision and drainage and excisional debridement diabetic abscess (65 cm2). She was discharged with a wound VAC. Pathology of abscess on 04/03/20 showed acute and chronic inflammation, fat necrosis and granulation, consistent with abscess formation. Surgical wound culture was positive for Anaerobic cocci and she was sent home on Augmentin. Dr. Rojas was consulted. Wound care: wound VAC. Encouraged patient to wash the wound with soap and water with VAC dressing changes. She denies any fevers. She states her appetite is good. - Physical Exam Vital Signs Temp Pulse Resp BP 97.9 F 89 20 H 170/77 H 04/16/20 08:42 04/16/20 08:42 04/16/20 08:42 04/16/20 08:42 General: Alert, Oriented x3, Cooperative HEENT: Atraumatic Oral: Moist Mucosa Lungs: Clear to auscultation, Normal air movement Cardiovascular: Regular rate, Regular Rhythm Abdomen: Soft Extremities: Capillary Refill Less than 3 Seconds Skin: Ulcer/ Wound - right upper thigh Wound Measurements and Assessment WC - Nurse 1 - General Ulcer Measurement Start: 04/16/20 08:41 Freq: Status: Active Protocol: Activity Type Activity Date Activity User E-Sign Co-Sign Detail Recorded Client Recorded Date Recorded By Document 04/16/20 08:42 [facility] [id number] 04/16/20 08:51 [facility] 04/16/20 08:42 Wound Center Nurse 1 [Ulcer Assessment] #1- R UPPER INNER THIGH POST OP -Combined with other wound No -Current Size (cm) - Length 2 -Current Size (cm) - Width 11 -Current Size (cm) - Depth 3.8 -Total Square Cm 22 -Date of Last Picture (Recall this 04/16/20 field) -Photo Taken Yes -Epithelialization None Present -Tunneling No -Undermining/Tunneling No -Circular Undermining No -Exudate Amt Small -Exudate Type Serosanguineous -Wound Margin Distinct, Outline Attached -Granulation Amt Large (67-100%) -Granulation Quality Red -Slough/Fibrin Yes -Necrosis Amt Small (1-33%) -Necrotic Tissue Type Adherent Slough -Texture (Betty-wound Skin Appearance) Assessed, Scarring -Moisture (Betty-wound Skin Appearance Assessed ) -Color (Betty-wound Skin Appearance) Assessed -Temperature (Betty-wound Skin No Abnormality Appearance) (Pt Warm) -Tenderness on Palpation (Betty-wound No Skin Appearance) -Ulcer Cleansing SOAPY WATER -Foul Odor after Cleansing No -Anesthetic Used 4% Lidocaine Solution WC - Nurse 2 - General Ulcer CM Notes Start: 04/16/20 08:41 Freq: Status: Active Protocol: Activity Type Activity Date Activity User E-Sign Co-Sign Detail Recorded Client Recorded Date Recorded By Document 04/17/20 07:37 PL [id number] 04/17/20 07:39 PL 04/17/20 07:37 Wound Center Nurse 2 [Procedure/Treatment] -Time 09:04 -Correct Patient Yes -Correct Side, Site, Position Yes -Correct Procedure Yes -Procedure Performed Yes -Type of Procedure Debridement -Clinical Debridement Subcutaneous -Post Debridement Size (cm) - Length 2.5 -Post Debridement Size (cm) - Width 12.3 -Post Debridement Size (cm) - Depth 4.5 -Total Square Cm 30.75 -Wound/Ulcer Outcome Not Healed -Ulcer Cleansing Rinsed/ Irrigated with Saline -Foul Odor after Cleansing No -Bleeding Controlled with Pressure -Treatment Response Procedure Tolerated Well [See Physician Procedure note for Specifics] Pain Scale: 0-10 Numeric [Pain] -Is Patient Pain Free? Yes Musculoskeletal: No Tenderness to Palpation of Joints or Extremities Neurological: Neuro grossly intact Psych/Mental Status: Normal Affect, Appropriate Debridement Note Post-Debridement Measurements/Treatment WC - Nurse 2 - General Ulcer CM Notes Start: 04/16/20 08:41 Freq: Status: Active Protocol: Activity Type Activity Date Activity User E-Sign Co-Sign Detail Recorded Client Recorded Date Recorded By Document 04/17/20 07:37 PL [id number] 04/17/20 07:39 PL 04/17/20 07:37 Wound Center Nurse 2 #1- R UPPER INNER THIGH POST OP -Time 09:04 -Correct Patient Yes -Correct Side, Site, Position Yes -Correct Procedure Yes -Procedure Performed Yes -Type of Procedure Debridement -Clinical Debridement Subcutaneous -Post Debridement Size (cm) - Length 2.5 -Post Debridement Size (cm) - Width 12.3 -Post Debridement Size (cm) - Depth 4.5 -Total Square Cm 30.75 -Wound/Ulcer Outcome Not Healed -Ulcer Cleansing Rinsed/ Irrigated with Saline -Foul Odor after Cleansing No -Bleeding Controlled with Pressure -Treatment Response Procedure Tolerated Well Pain Scale: 0-10 Numeric Is Patient Pain Free? Yes Wound debrided: thigh Laterality: Right Type of Debridement: Excisional debridement Anesthesia Used: 4% Lidocaine Solution, 5% Lidocaine Gel Depth: Down to and including healthy tissue, in the subcutaneous layer, to muscle Percentage of wound debrided: 100 Instrument Used: 7mm curette Tissue Removed: Subcutaneous tissue and slough into the muscle Severity: Fat Layer Exposed Amount of bleeding with debridement: Mild Bleeding Controlled with: Compression and gauze Patient tolerated procedure well Assessment/Plan Active Problems (Last Reviewed 10/05/19 @ 13:42 by Syl Fischer) Open wound of right thigh (Acute) Diabetes mellitus type 2 in obese (Chronic) Anxiety and depression (Chronic) Nicotine dependence (Chronic) Assessment: 1. Open wound of right thigh. 2. Diabetes mellitus type 2 in obese. 3. Anxiety and depression. 4. Nicotine dependence Plan: Patient [facility] and [facility] A debridement into the subcutaneous and muscular tissue was performed. She tolerated the proceedure well. Surgery on 04/03/20 for Surgical preparation right upper medial thigh with incision and drainage and excisional debridement diabetic abscess (65 cm2). She was discharged with a wound VAC. Pathology of abscess on 04/03/20 showed acute and chronic inflammation, fat necrosis and granulation, consistent with abscess formation. Surgical wound culture was positive for Anaerobic cocci and she was sent home on Augmentin. She stopped that antibiotics because of a reaction that she ended up in the ED. Dr. Rojas is consulted and she is to follow up with him. Wound care: Wound VAC at 150 mmHg. Instructed patient that the wound needs to be washed with soap and water at the time of the VAC dressing changes Home health is changing VAC dressing. Encouraged to increase protein intake to help with wound healing. Encouraged to stop smoking as it can be deleterious to wound healing. Follow up one week. [id number]: [id number] Global Visit
[2020-04-23 08:44] VITALS: BP 144/68; PULSE 96; RESP 18; TEMP 36.8; BMI 43.2
--- NOTE | 2020-04-23 10:00 | PCM.WC.PN ---
(1) Open wound of right thigh Status: Acute Current Visit: Yes Code(s): S71.101A - Unspecified open wound, right thigh, initial encounter (2) Diabetes mellitus type 2 in obese Status: Chronic Current Visit: Yes Code(s): E11.69 - Type 2 diabetes mellitus with other specified complication; E66.9 - Obesity, unspecified (3) Anxiety and depression Status: Chronic Current Visit: Yes Code(s): F41.9 - Anxiety disorder, unspecified; F32.9 - Major depressive disorder, single episode, unspecified (4) Abscess of right thigh Status: Acute Current Visit: No Code(s): L02.415 - Cutaneous abscess of right lower limb (5) Necrotizing soft tissue infection Status: Acute Current Visit: No Code(s): M79.89 - Other specified soft tissue disorders (6) Nicotine dependence Status: Chronic Current Visit: Yes Code(s): F17.200 - Nicotine dependence, unspecified, uncomplicated Type of Wound Date of Service: 04/23/20 Chief Complaint: Right upper medial thigh ulcer History of Wound: Surgery on 04/03/20 for Surgical preparation right upper medial thigh with incision and drainage and excisional debridement diabetic abscess (65 cm2). She was discharged with a wound VAC. Pathology of abscess on 04/03/20 showed acute and chronic inflammation, fat necrosis and granulation, consistent with abscess formation. Surgical wound culture was positive for Anaerobic cocci and she was sent home on Augmentin. Dr. Rojas was consulted. Wound care: wound VAC. Encouraged patient to wash the wound with soap and water with VAC dressing changes. She states that home health is now washing the wound with soap and water with the dressing changes. She denies any fevers. She states her appetite is good. Progress of Wound: Stable - Physical Exam Vital Signs Temp Pulse Resp BP 98.2 F 96 18 144/68 H 04/23/20 08:44 04/23/20 08:44 04/23/20 08:44 04/23/20 08:44 General: Alert, Oriented x3, Cooperative HEENT: Atraumatic Oral: Moist Mucosa Lungs: Normal air movement Cardiovascular: Regular rate Abdomen: Soft Extremities: Capillary Refill Less than 3 Seconds Skin: Ulcer/ Wound - Right medial thigh wound. It is beefy pink. Unsure if the foam from the wound VAC dressing is getting placed into the base of the wound. Wound Measurements and Assessment WC - Nurse 1 - General Ulcer Measurement Start: 04/16/20 08:41 Freq: Status: Active Protocol: Activity Type Activity Date Activity User E-Sign Co-Sign Detail Recorded Client Recorded Date Recorded By Document 04/23/20 08:44 DL [id number] 04/23/20 08:55 DL 04/23/20 08:44 Wound Center Nurse 1 [Ulcer Assessment] #1- R UPPER INNER THIGH POST OP -Combined with other wound No -Current Size (cm) - Length 2 -Current Size (cm) - Width 10.7 -Current Size (cm) - Depth 3.2 -Total Square Cm 21.4 -Photo Taken No -Epithelialization Small 1-33% -Tunneling No -Undermining/Tunneling Yes -Undermining/Tunneling Starts (O' 3 clock) -Undermining/Tunneling Ends (O'clock) 5 -Maximum Distance (cm) 1.2 -Circular Undermining No -Exudate Amt Small -Exudate Type Serosanguineous -Wound Margin Distinct, Outline Attached -Granulation Amt Large (67-100%) -Granulation Quality Red -Slough/Fibrin Yes -Necrosis Amt Small (1-33%) -Necrotic Tissue Type Adherent Slough -Texture (Betty-wound Skin Appearance) Assessed -Moisture (Betty-wound Skin Appearance Assessed ) -Color (Betty-wound Skin Appearance) Assessed -Temperature (Betty-wound Skin No Abnormality Appearance) (Pt Warm) -Tenderness on Palpation (Betty-wound No Skin Appearance) -Ulcer Cleansing soapy water -Foul Odor after Cleansing No -Anesthetic Used 4% Lidocaine Solution WC - Nurse 2 - General Ulcer CM Notes Start: 04/16/20 08:41 Freq: Status: Active Protocol: Activity Type Activity Date Activity User E-Sign Co-Sign Detail Recorded Client Recorded Date Recorded By Document 04/23/20 09:10 JUAN [id number] 04/23/20 09:12 JUAN 04/23/20 09:10 Wound Center Nurse 2 [Procedure/Treatment] -Time 09:11 -Correct Patient Yes -Correct Side, Site, Position Yes -Correct Procedure Yes -Procedure Performed Yes -Type of Procedure Debridement -Clinical Debridement Muscle -Post Debridement Size (cm) - Length 3.0 -Post Debridement Size (cm) - Width 11 -Post Debridement Size (cm) - Depth 3.5 -Total Square Cm 33.0 -Wound/Ulcer Outcome Not Healed -Ulcer Cleansing Rinsed/ Irrigated with Saline -Foul Odor after Cleansing No -Bioengineered Tissue No -Bleeding Controlled with Pressure -Offloading No -Treatment Response Procedure Tolerated Well [See Physician Procedure note for Specifics] Pain Scale: 0-10 Numeric [Pain] -Is Patient Pain Free? Yes Musculoskeletal: No Tenderness to Palpation of Joints or Extremities Neurological: Neuro grossly intact Psych/Mental Status: Normal Affect, Appropriate Debridement Note Post-Debridement Measurements/Treatment WC - Nurse 2 - General Ulcer CM Notes Start: 04/16/20 08:41 Freq: Status: Active Protocol: Activity Type Activity Date Activity User E-Sign Co-Sign Detail Recorded Client Recorded Date Recorded By Document 04/17/20 07:37 PL [id number] 04/17/20 07:39 PL Document 04/23/20 09:10 [id number] 04/23/20 09:12 04/17/20 04/23/20 07:37 09:10 Wound Center Nurse 2 #1- R UPPER INNER THIGH POST OP -Time 09:04 09:11 -Correct Patient Yes Yes -Correct Side, Site, Position Yes Yes -Correct Procedure Yes Yes -Procedure Performed Yes Yes -Type of Procedure Debridement Debridement -Clinical Debridement Subcutaneous Muscle -Post Debridement Size (cm) - Length 2.5 3.0 -Post Debridement Size (cm) - Width 12.3 11 -Post Debridement Size (cm) - Depth 4.5 3.5 -Total Square Cm 30.75 33.0 -Wound/Ulcer Outcome Not Healed Not Healed -Ulcer Cleansing Rinsed/ Rinsed/ Irrigated with Irrigated with Saline Saline -Foul Odor after Cleansing No No -Bioengineered Tissue No -Bleeding Controlled with Pressure Pressure -Offloading No -Treatment Response Procedure Procedure Tolerated Well Tolerated Well Pain Scale: 0-10 Numeric Is Patient Pain Free? Yes Yes Wound debrided: Proximal, medial thigh wound Laterality: Right Type of Debridement: Excisional debridement Anesthesia Used: 5% Lidocaine Gel Depth: Down to and including healthy tissue, in the subcutaneous layer, to muscle Percentage of wound debrided: 100 Instrument Used: 7mm curette Tissue Removed: Subcutaneous tissue and slough into the muscle. Severity: Fat Layer Exposed Amount of bleeding with debridement: Mild Bleeding Controlled with: Pressure Patient tolerated procedure well Assessment/Plan Active Problems (Last Reviewed 10/05/19 @ 13:42 by Syl Fischer) Open wound of right thigh (Acute) Diabetes mellitus type 2 in obese (Chronic) Anxiety and depression (Chronic) Nicotine dependence (Chronic) Assessment: 1. Open wound of right thigh. 2. Diabetes mellitus type 2 in obese. 3. Anxiety and depression. 4. Nicotine dependence Plan: Patient was seen and evaluated today [facility]. A debridement into the subcutaneous and muscular tissue was performed. She tolerated the proceedure well. Surgery on 04/03/20 for Surgical preparation right upper medial thigh with incision and drainage and excisional debridement diabetic abscess (65 cm2). She was discharged with a wound VAC. Pathology of abscess on 04/03/20 showed acute and chronic inflammation, fat necrosis and granulation, consistent with abscess formation. Surgical wound culture was positive for Anaerobic cocci and she was sent home on Augmentin. She stopped that antibiotics because of a reaction that she ended up in the ED. Dr. Rojas is consulted and she is to follow up with him. Wound care: Wound VAC at 150 mmHg. Patient states that the wound is getting washed with soap and water at the time of the VAC dressing changes Home health is changing VAC dressing. She has been having issues with the canister not fitting properly. Encouraged to increase protein intake to help with wound healing. Encouraged to stop smoking as it can be deleterious to wound healing. Follow up one week. [id number]: [id number] Global Visit
[2020-04-30 09:06] VITALS: BP 171/66; PULSE 101; RESP 18; TEMP 36.3; BMI 43.2
--- NOTE | 2020-04-30 10:53 | PN.PCM_ITS ---
(1) Open wound of right thigh Status: Acute Current Visit: Yes Code(s): S71.101A - Unspecified open wound, right thigh, initial encounter (2) Diabetes mellitus type 2 in obese Status: Chronic Current Visit: Yes Code(s): E11.69 - Type 2 diabetes mellitus with other specified complication; E66.9 - Obesity, unspecified (3) Anxiety and depression Status: Chronic Current Visit: Yes Code(s): F41.9 - Anxiety disorder, unspecified; F32.9 - Major depressive disorder, single episode, unspecified (4) Abscess of right thigh Status: Acute Current Visit: No Code(s): L02.415 - Cutaneous abscess of right lower limb (5) Necrotizing soft tissue infection Status: Acute Current Visit: No Code(s): M79.89 - Other specified soft tissue disorders (6) Nicotine dependence Status: Chronic Current Visit: Yes Code(s): F17.200 - Nicotine dependence, unspecified, uncomplicated Type of Wound Date of Service: 04/30/20 Chief Complaint: Right upper medial thigh ulcer History of Wound: Surgery on 04/03/20 for Surgical preparation right upper medial thigh with incision and drainage and excisional debridement diabetic abscess (65 cm2). She was discharged with a wound VAC. Pathology of abscess on 04/03/20 showed acute and chronic inflammation, fat necrosis and granulation, consistent with abscess formation. Surgical wound culture was positive for Anaerobic cocci and she was sent home on Augmentin. Dr. Rojas was consulted. Wound care: wound VAC. Will take a week VAC holiday due to gay wound erythema and odor coming from her wound. She will do daily Dakin's dressing changes. She states that home health is now washing the wound with soap and water with the dressing changes. Cultures obtained today, 04/30/20 due to the odor she is experiencing. She denies any fevers. She states her appetite is good. Progress of Wound: Stable - Physical Exam Vital Signs Temp Pulse Resp BP 97.4 F L 101 H 18 171/66 H 04/30/20 09:06 04/30/20 09:06 04/30/20 09:06 04/30/20 09:06 General: Alert, Oriented x3, Cooperative HEENT: Atraumatic Oral: Moist Mucosa Lungs: Normal air movement Cardiovascular: Regular rate Extremities: Capillary Refill Less than 3 Seconds Skin: Ulcer/ Wound - Right proximal thigh wound, beefy pink but has an odor. Tunneling at 3:00 Wound Measurements and Assessment WC - Nurse 1 - General Ulcer Measurement Start: 04/16/20 08:41 Freq: Status: Active Protocol: Activity Type Activity Date Activity User E-Sign Co-Sign Detail Recorded Client Recorded Date Recorded By Document 04/30/20 09:06 CS [id number] 04/30/20 09:18 CS 04/30/20 09:06 Wound Center Nurse 1 [Ulcer Assessment] #1- R UPPER INNER THIGH POST OP -Combined with other wound No -Current Size (cm) - Length 2 -Current Size (cm) - Width 9.3 -Current Size (cm) - Depth 2.6 -Total Square Cm 18.6 -Photo Taken No -Epithelialization None Present -Tunneling No -Undermining/Tunneling No -Circular Undermining No -Exudate Amt Small -Exudate Type Serosanguineous -Wound Margin Distinct, Outline Attached -Granulation Amt Large (67-100%) -Granulation Quality Red -Slough/Fibrin Yes -Necrosis Amt None Present (0 %) -Necrotic Tissue Type Adherent Slough -Structure Exposed N/A -Texture (Gay-wound Skin Appearance) Scarring -Moisture (Gay-wound Skin Appearance Assessed, ) Maceration -Color (Gay-wound Skin Appearance) No Abnormality, Assessed -Temperature (Gay-wound Skin No Abnormality Appearance) (Pt Warm) -Tenderness on Palpation (Gay-wound No Skin Appearance) -Ulcer Cleansing Rinsed/ Irrigated with Saline -Foul Odor after Cleansing No -Anesthetic Used 4% Lidocaine Solution [Edema Assessment] -Lower Limb Edema Present NA Musculoskeletal: Tenderness Neurological: Neuro grossly intact Psych/Mental Status: Normal Affect, Appropriate Debridement Note Post-Debridement Measurements/Treatment WC - Nurse 2 - General Ulcer CM Notes Start: 04/16/20 08:41 Freq: Status: Active Protocol: Activity Type Activity Date Activity User E-Sign Co-Sign Detail Recorded Client Recorded Date Recorded By Document 04/17/20 07:37 PL [id number] 04/17/20 07:39 PL Document 04/23/20 09:10 JUAN [id number] 04/23/20 09:12 JF 04/17/20 04/23/20 07:37 09:10 Wound Center Nurse 2 #1- R UPPER INNER THIGH POST OP -Time 09:04 09:11 -Correct Patient Yes Yes -Correct Side, Site, Position Yes Yes -Correct Procedure Yes Yes -Procedure Performed Yes Yes -Type of Procedure Debridement Debridement -Clinical Debridement Subcutaneous Muscle -Post Debridement Size (cm) - Length 2.5 3.0 -Post Debridement Size (cm) - Width 12.3 11 -Post Debridement Size (cm) - Depth 4.5 3.5 -Total Square Cm 30.75 33.0 -Wound/Ulcer Outcome Not Healed Not Healed -Ulcer Cleansing Rinsed/ Rinsed/ Irrigated with Irrigated with Saline Saline -Foul Odor after Cleansing No No -Bioengineered Tissue No -Bleeding Controlled with Pressure Pressure -Offloading No -Treatment Response Procedure Procedure Tolerated Well Tolerated Well Pain Scale: 0-10 Numeric Is Patient Pain Free? Yes Yes Laterality: Right Type of Debridement: Excisional debridement Anesthesia Used: 5% Lidocaine Gel Depth: Down to and including healthy tissue, in the subcutaneous layer, to mu scle Percentage of wound debrided: 100 Instrument Used: 7mm curette Tissue Removed: Subcutaneous tissue and slough into the muscle Severity: Fat Layer Exposed Amount of bleeding with debridement: Mild Bleeding Controlled with: Pressure, Compression and gauze Patient tolerated procedure well Assessment/Plan Active Problems (Last Reviewed 10/05/19 @ 13:42 by Syl Fischer) Open wound of right thigh (Acute) Diabetes mellitus type 2 in obese (Chronic) Anxiety and depression (Chronic) Nicotine dependence (Chronic) Assessment: 1. Open wound of right thigh. 2. Diabetes mellitus type 2 in obese. 3. Anxiety and depression. 4. Nicotine dependence Plan: Patient was seen and evaluated today [facility]. A debridement into the subcutaneous and muscular tissue was performed. She tolerated the proceedure well. Surgery on 04/03/20 for Surgical preparation right upper medial thigh with incision and drainage and excisional debridement di abetic abscess (65 cm2). She was discharged with a wound VAC. Pathology of abscess on 04/03/20 showed acute and chronic inflammation, fat necrosis and granulation, consistent with abscess formation. Surgical wound culture was positive for Anaerobic cocci and she was sent home on Augmentin. She stopped that antibiotics because of a reaction that she ended up in the ED. Dr. Rojas is consulted and she is to follow up with him. Wound care: Wound VAC at 150 mmHg. Will take a wound VAC holiday for one week. Will do daily Dakin's moisten gauze dressing changes. Patient states that the wound is getting washed with soap and water at the time of the dressing changes. Wound Culture obtained today 04/30/20 due to odor in wound. Encouraged to increase protein intake to help with wound healing. Encouraged to stop smoking as it can be deleterious to wound healing. Follow up one week. [id number]: [id number] Global Visit
--- NOTE | 2020-04-30 11:02 | WC ---
Culture taken of wound
--- NOTE | 2020-05-02 15:30 | WC ---
TC FROM [facility] GENERATOR SULAIMAN MARTÍNEZ. SHE REVIEWED PTS WOUND CX'S AND + MRSA. SHE CALLED IN [facility] ([facility]) TO [facility] AND WOULD LIKE PT CONTACTED/UPDATED. THIS NURSE WAS ABLE TO OBTAIN WORKING PHONE NUMBER FROM PTS SISTER LISTED NEXT OF KIN. CURRENT PHONE NUMBER FOR [facility] ([facility]) IS [phone]. PT CONTACTED W/ UNDERSTANDING VOICED.
[2020-05-07 10:33] VITALS: BP 176/99; PULSE 95; RESP 18; TEMP 36; BMI 43.2
--- NOTE | 2020-05-07 11:15 | PN.PCM_ITS ---
(1) Open wound of right thigh Status: Acute Code(s): S71.101A - Unspecified open wound, right thigh, initial encounter (2) Diabetes mellitus type 2 in obese Status: Chronic Code(s): E11.69 - Type 2 diabetes mellitus with other specified complication; E66.9 - Obesity, unspecified (3) Anxiety and depression Status: Chronic Code(s): F41.9 - Anxiety disorder, unspecified; F32.9 - Major depressive disorder, single episode, unspecified (4) Abscess of right thigh Status: Acute Code(s): L02.415 - Cutaneous abscess of right lower limb (5) Necrotizing soft tissue infection Status: Acute Code(s): M79.89 - Other specified soft tissue disorders (6) Nicotine dependence Status: Chronic Code(s): F17.200 - Nicotine dependence, unspecified, uncomplicated Type of Wound Date of Service: 05/07/20 Chief Complaint: Right upper medial thigh ulcer History of Wound: Surgery on 04/03/20 for Surgical preparation right upper medial thigh with incision and drainage and excisional debridement diabetic abscess (65 cm2). She was discharged with a wound VAC. Pathology of abscess on 04/03/20 showed acute and chronic inflammation, fat necrosis and granulation, consistent with abscess formation. Surgical wound culture was positive for Anaerobic cocci and she was sent home on Augmentin. Dr. Rojas was consulted. Wound care: wound VAC. Last see took a VAC holiday due to gay wound erythema. She states that home health is now washing the wound with soap and water with the dressing changes. Cultures obtained on 04/30/20 due to the odor she is experiencing. Cultures were positive for MRSA which she was started on Doxycycline. Anaerobic cultures pending. She denies any fevers. She states her appetite is good. Progress of Wound: Stable - Physical Exam Vital Signs Temp Pulse Resp BP 96.8 F L 95 18 176/99 H 05/07/20 10:33 05/07/20 10:33 05/07/20 10:33 05/07/20 10:33 General: Alert, Oriented x3, Cooperative HEENT: Atraumatic, PERRLA Oral: Moist Mucosa Lungs: Normal air movement Cardiovascular: Regular rate Abdomen: Soft, Obese Extremities: Capillary Refill Less than 3 Seconds Skin: Ulcer/ Wound - Right groin wound with tunnelling on the medial aspect of the open area. Wound Measurements and Assessment - Nurse 1 - General Ulcer Measurement Start: 04/16/20 08:41 Freq: Status: Active Protocol: Activity Type Activity Date Activity User E-Sign Co-Sign Detail Recorded Client Recorded Date Recorded By Document 05/07/20 10:33 [email or web address] [id number] 05/07/20 10:35 JEMIMA 05/07/20 10:33 Wound Center Nurse 1 [Ulcer Assessment] #1- R UPPER INNER THIGH POST OP -Combined with other wound No -Current Size (cm) - Length 1.1 -Current Size (cm) - Width 9 -Current Size (cm) - Depth 2.7 -Total Square Cm 9.9 -Tunneling No -Undermining/Tunneling No -Circular Undermining No -Exudate Amt Large -Exudate Type Serosanguineous -Wound Margin Thickened & Rolled Under -Granulation Amt Medium (34-66%) -Granulation Quality [place],Red -Slough/Fibrin Yes -Necrosis Amt Small (1-33%) -Necrotic Tissue Type Adherent Slough -Structure Exposed N/A -Texture (Gay-wound Skin Appearance) Assessed -Moisture (Gay-wound Skin Appearance Assessed ) -Color (Gay-wound Skin Appearance) Erythema -Temperature (Gay-wound Skin No Abnormality Appearance) (Pt Warm) -Tenderness on Palpation (Gay-wound No Skin Appearance) -Ulcer Cleansing Wound Cleanser -Foul Odor after Cleansing No -Anesthetic Used 4% Lidocaine Solution - Nurse 2 - General Ulcer CM Notes Start: 04/16/20 08:41 Freq: Status: Active Protocol: Activity Type Activity Date Activity User E-Sign Co-Sign Detail Recorded Client Recorded Date Recorded By Document 05/07/20 10:55 JUAN [id number] 05/07/20 11:02 JUAN 05/07/20 10:55 Wound Center Nurse 2 [Procedure/Treatment] -Time 10:56 -Correct Patient Yes -Correct Side, Site, Position Yes -Correct Procedure Yes -Procedure Performed Yes -Type of Procedure Debridement -Clinical Debridement Muscle -Post Debridement Size (cm) - Length 1.8 -Post Debridement Size (cm) - Width 8.0 -Post Debridement Size (cm) - Depth 3.5 -Total Square Cm 14.40 -Wound/Ulcer Outcome Not Healed -Ulcer Cleansing Rinsed/ Irrigated with Saline -Foul Odor after Cleansing No -Bioengineered Tissue No -Bleeding Controlled with Pressure -Other tunnel @ 3:00-- 7.0cm -Offloading No -Treatment Response Procedure Tolerated Well [See Physician Procedure note for Specifics] Pain Scale: 0-10 Numeric [Pain] -Is Patient Pain Free? Yes Musculoskeletal: No Tenderness to Palpation of Joints or Extremities Neurological: Neuro grossly intact Psych/Mental Status: Normal Affect, Appropriate Debridement Note Post-Debridement Measurements/Treatment WC - Nurse 2 - General Ulcer CM Notes Start: 04/16/20 08:41 Freq: Status: Active Protocol: Activity Type Activity Date Activity User E-Sign Co-Sign Detail Recorded Client Recorded Date Recorded By Document 04/17/20 07:37 PL [id number] 04/17/20 07:39 PL Document 04/23/20 09:10 JF [id number] 04/23/20 09:12 JF Document 04/30/20 10:59 PL [id number] 04/30/20 11:00 PL Document 05/07/20 10:55 JF [id number] 05/07/20 11:02 04/17/20 04/23/20 04/30/20 07:37 09:10 10:59 Wound Center Nurse 2 #1- R UPPER INNER THIGH POST OP -Time 09:04 09:11 09:25 -Correct Patient Yes Yes Yes -Correct Side, Site, Position Yes Yes Yes -Correct Procedure Yes Yes Yes -Procedure Performed Yes Yes Yes -Type of Procedure Debridement Debridement Debridement -Clinical Debridement Subcutaneous Muscle Subcutaneous -Post Debridement Size (cm) - Length 2.5 3.0 2.5 -Post Debridement Size (cm) - Width 12.3 11 9 -Post Debridement Size (cm) - Depth 4.5 3.5 3 -Total Square Cm 30.75 33.0 22.5 -Wound/Ulcer Outcome Not Healed Not Healed Not Healed -Ulcer Cleansing Rinsed/ Rinsed/ Rinsed/ Irrigated with Irrigated with Irrigated with Saline Saline Saline -Foul Odor after Cleansing No No No -Bioengineered Tissue No -Bleeding Controlled with Pressure Pressure Pressure -Other -Offloading No -Treatment Response Procedure Procedure Procedure Tolerated Well Tolerated Well Tolerated Well Pain Scale: 0-10 Numeric Is Patient Pain Free? Yes Yes Yes 05/07/20 10:55 Wound Center Nurse 2 #1- R UPPER INNER THIGH POST OP -Time 10:56 -Correct Patient Yes -Correct Side, Site, Position Yes -Correct Procedure Yes -Procedure Performed Yes -Type of Procedure Debridement -Clinical Debridement Muscle -Post Debridement Size (cm) - Length 1.8 -Post Debridement Size (cm) - Width 8.0 -Post Debridement Size (cm) - Depth 3.5 -Total Square Cm 14.40 -Wound/Ulcer Outcome Not Healed -Ulcer Cleansing Rinsed/ Irrigated with Saline -Foul Odor after Cleansing No -Bioengineered Tissue No -Bleeding Controlled with Pressure -Other tunnel @ 3:00-- 7.0cm -Offloading No -Treatment Response Procedure Tolerated Well Pain Scale: 0-10 Numeric Is Patient Pain Free? Yes Wound debrided: thigh wound Laterality: Right Type of Debridement: Excisional debridement Anesthesia Used: 5% Lidocaine Gel Depth: Down to and including healthy tissue, in the subcutaneous layer, to muscle Percentage of wound debrided: 100 Instrument Used: 7mm curette Tissue Removed: Subcutaneous tissue and slough into the muscle Severity: Fat Layer Exposed Amount of bleeding with debridement: Mild Bleeding Controlled with: Pressure Patient tolerated procedure well Assessment/Plan Assessment: 1. Open wound of right thigh. 2. Diabetes mellitus type 2 in obese. 3. Anxiety and depression. 4. Nicotine dependence Plan: Patient [facility] A debridement into the subcutaneous and muscular tissue was performed. She tolerated the proceedure well. Surgery on 04/03/20 for Surgical preparation right upper medial thigh with incision and drainage and excisional debridement di abetic abscess (65 cm2). She was discharged with a wound VAC. Pathology of abscess on 04/03/20 showed acute and chronic inflammation, fat necrosis and granulation, consistent with abscess formation. Surgical wound culture was positive for Anaerobic cocci and she was sent home on Augmentin. She stopped that antibiotics because of a reaction that she ended up in the ED. Dr. Rojas is consulted and she is to follow up with him. Wound care: Restart the wound VAC at 150 mmHg. Patient states that the wound is getting washed with soap and water at the time of the dressing changes. Wound Culture obtained 04/30/20 which is positive for MRSA, Anearobic culture still pending. She was started on Doxycycline. Encouraged to increase protein intake to help with wound healing. Encouraged to stop smoking as it can be deleterious to wound healing. Follow up one week. [id number]: [id number] Global Visit
--- NOTE | 2020-05-08 13:23 | WC ---
Dipti Roth SEMIAUTOMATIC TAPER OPERATOR called in script to patients pharmacy. This nurse filled out RX slip and placed in patients chart waiting for Dipti's signature. Patient informed.
[2020-05-14 13:50] VITALS: BP 168/80; PULSE 92; RESP 22; TEMP 36.9; BMI 43.2
--- NOTE | 2020-05-14 15:55 | PCM.WC.PN ---
(1) Non-healing ulcer Status: Chronic Code(s): L98.499 - Non-pressure chronic ulcer of skin of other sites with unspecified severity (2) Diabetes mellitus type 2 in obese Status: Chronic Code(s): E11.69 - Type 2 diabetes mellitus with other specified complication; E66.9 - Obesity, unspecified (3) Anxiety and depression Status: Chronic Code(s): F41.9 - Anxiety disorder, unspecified; F32.9 - Major depressive disorder, single episode, unspecified (4) Abscess of right thigh Status: Acute Code(s): L02.415 - Cutaneous abscess of right lower limb (5) Nicotine dependence Status: Chronic Code(s): F17.200 - Nicotine dependence, unspecified, uncomplicated Type of Wound Date of Service: 05/14/20 Chief Complaint: Right upper medial thigh ulcer History of Wound: Surgery on 04/03/20 for Surgical preparation right upper medial thigh with incision and drainage and excisional debridement diabetic abscess (65 cm2). She was discharged with a wound VAC. Pathology of abscess on 04/03/20 showed acute and chronic inflammation, fat necrosis and granulation, consistent with abscess formation. Surgical wound culture was positive for Anaerobic cocci and she was sent home on Augmentin. Dr. Rojas was consulted. Wound care: Wound VAC. If she has issues with her VAC keeping a seal, she can use Dakin's moistened gauze until home health can see her to replace the VAC dressing. She states that home health is now washing the wound with soap and water with the dressing changes. Cultures obtained on 04/30/20 which were positive for MRSA which she was started on Doxycycline. Anaerobic cultures positive for Anaerobic cocci and Porphyromonas gingivalis. She was started on Flagyl. She denies any fevers. She states her appetite is good. Progress of Wound: Stable - Physical Exam Vital Signs Temp Pulse Resp BP 98.4 F 92 22 H 168/80 H 05/14/20 13:50 05/14/20 13:50 05/14/20 13:50 05/14/20 13:50 General: Alert, Oriented x3, Cooperative HEENT: Atraumatic Oral: Moist Mucosa Lungs: Normal air movement Cardiovascular: Regular rate Extremities: Capillary Refill Less than 3 Seconds Skin: Ulcer/ Wound - Right anterior proximal thigh ulcer beefy pink and showing improvement compared to last week. Tunnel at 3 o'clock decreased to 3 cm from 7 last week. Wound Measurements and Assessment WC - Nurse 1 - General Ulcer Measurement Start: 04/16/20 08:41 Freq: Status: Active Protocol: Activity Type Activity Date Activity User E-Sign Co-Sign Detail Recorded Client Recorded Date Recorded By Document 05/14/20 13:50 DL [id number] 05/14/20 13:59 DL 05/14/20 13:50 Wound Center Nurse 1 [Ulcer Assessment] #1- R UPPER INNER THIGH POST OP -Current Size (cm) - Length 1 -Current Size (cm) - Width 0.6 -Current Size (cm) - Depth 1.2 -Total Square Cm 0.6 -Photo Taken No -Tunneling Position (O'clock) 3 -Tunneling Distance (cm) 2.3 -Exudate Amt Medium -Exudate Type Serosanguineous -Wound Margin Distinct, Outline Attached -Granulation Amt Large (67-100%) -Granulation Quality Red -Necrosis Amt Small (1-33%) -Necrotic Tissue Type Adherent Slough -Structure Exposed N/A -Texture (Betty-wound Skin Appearance) Scarring -Color (Betty-wound Skin Appearance) No Abnormality -Temperature (Betty-wound Skin No Abnormality Appearance) (Pt Warm) -Tenderness on Palpation (Betty-wound No Skin Appearance) -Ulcer Cleansing Wound Cleanser -Foul Odor after Cleansing Yes -Anesthetic Used 4% Lidocaine Solution - Nurse 2 - General Ulcer CM Notes Start: 04/16/20 08:41 Freq: Status: Active Protocol: Activity Type Activity Date Activity User E-Sign Co-Sign Detail Recorded Client Recorded Date Recorded By Document 05/14/20 14:57 [id number] 05/14/20 15:00 05/14/20 14:57 Wound Center Nurse 2 [Procedure/Treatment] -Time 15:00 -Correct Patient Yes -Correct Side, Site, Position Yes -Correct Procedure Yes -Procedure Performed Yes -Type of Procedure Debridement -Clinical Debridement Subcutaneous -Post Debridement Size (cm) - Length 1.5 -Post Debridement Size (cm) - Width 6.0 -Post Debridement Size (cm) - Depth 1.5 -Total Square Cm 9.00 -Wound/Ulcer Outcome Not Healed -Ulcer Cleansing Rinsed/ Irrigated with Saline -Foul Odor after Cleansing No -Bioengineered Tissue No -Bleeding Controlled with Pressure -Offloading No -Treatment Response Procedure Tolerated Well [See Physician Procedure note for Specifics] Pain Scale: 0-10 Numeric [Pain] -Is Patient Pain Free? Yes Musculoskeletal: No Tenderness to Palpation of Joints or Extremities Neurological: Neuro grossly intact Psych/Mental Status: Normal Affect, Appropriate Debridement Note Post-Debridement Measurements/Treatment WC - Nurse 2 - General Ulcer CM Notes Start: 04/16/20 08:41 Freq: Status: Active Protocol: Activity Type Activity Date Activity User E-Sign Co-Sign Detail Recorded Client Recorded Date Recorded By Document 04/17/20 07:37 PL [id number] 04/17/20 07:39 PL Document 04/23/20 09:10 JF [id number] 04/23/20 09:12 JF Document 04/30/20 10:59 PL [id number] 04/30/20 11:00 PL Document 05/07/20 10:55 JF [id number] 05/07/20 11:02 Document 05/14/20 14:57 JF [id number] 05/14/20 15:00 04/17/20 04/23/20 04/30/20 07:37 09:10 10:59 Wound Center Nurse 2 #1- R UPPER INNER THIGH POST OP -Time 09:04 09:11 09:25 -Correct Patient Yes Yes Yes -Correct Side, Site, Position Yes Yes Yes -Correct Procedure Yes Yes Yes -Procedure Performed Yes Yes Yes -Type of Procedure Debridement Debridement Debridement -Clinical Debridement Subcutaneous Muscle Subcutaneous -Post Debridement Size (cm) - Length 2.5 3.0 2.5 -Post Debridement Size (cm) - Width 12.3 11 9 -Post Debridement Size (cm) - Depth 4.5 3.5 3 -Total Square Cm 30.75 33.0 22.5 -Wound/Ulcer Outcome Not Healed Not Healed Not Healed -Ulcer Cleansing Rinsed/ Rinsed/ Rinsed/ Irrigated with Irrigated with Irrigated with Saline Saline Saline -Foul Odor after Cleansing No No No -Bioengineered Tissue No -Bleeding Controlled with Pressure Pressure Pressure -Other -Offloading No -Treatment Response Procedure Procedure Procedure Tolerated Well Tolerated Well Tolerated Well Pain Scale: 0-10 Numeric Is Patient Pain Free? Yes Yes Yes 05/07/20 05/14/20 10:55 14:57 Wound Center Nurse 2 #1- R UPPER INNER THIGH POST OP -Time 10:56 15:00 -Correct Patient Yes Yes -Correct Side, Site, Position Yes Yes -Correct Procedure Yes Yes -Procedure Performed Yes Yes -Type of Procedure Debridement Debridement -Clinical Debridement Muscle Subcutaneous -Post Debridement Size (cm) - Length 1.8 1.5 -Post Debridement Size (cm) - Width 8.0 6.0 -Post Debridement Size (cm) - Depth 3.5 1.5 -Total Square Cm 14.40 9.00 -Wound/Ulcer Outcome Not Healed Not Healed -Ulcer Cleansing Rinsed/ Rinsed/ Irrigated with Irrigated with Saline Saline -Foul Odor after Cleansing No No -Bioengineered Tissue No No -Bleeding Controlled with Pressure Pressure -Other tunnel @ 3:00-- 7.0cm -Offloading No No -Treatment Response Procedure Procedure Tolerated Well Tolerated Well Pain Scale: 0-10 Numeric Is Patient Pain Free? Yes Yes Wound debrided: Right anterior proximal thigh ulcer Laterality: Right Type of Debridement: Excisional debridement Anesthesia Used: 5% Lidocaine Gel Depth: Down to and including healthy tissue, in the subcutaneous layer Percentage of wound debrided: 100 Instrument Used: 7mm curette Tissue Removed: Subcutaneous tissue and slough Severity: Fat Layer Exposed Amount of bleeding with debridement: Mild Bleeding Controlled with: Pressure Patient tolerated procedure well Assessment/Plan Assessment: 1. Open wound of right thigh. 2. Diabetes mellitus type 2 in obese. 3. Anxiety and depression. 4. Nicotine dependence Plan: Patient was [facility] and evaluated [facility]. A debridement into the subcutaneous and muscular tissue was performed. She tolerated the proceedure well. Surgery on 04/03/20 for Surgical preparation right upper medial thigh with incision and drainage and excisional debridement diabetic abscess (65 cm2). She was discharged with a wound VAC. Pathology of abscess on 04/03/20 showed acute and chronic inflammation, fat necrosis and granulation, consistent with abscess formation. Surgical wound culture was positive for Anaerobic cocci and she was sent home on Augmentin. She stopped that antibiotics because of a reaction that she ended up in the ED. Dr. Rojas is consulted and she is to follow up with him. Wound care: Wound VAC. If she has issues with her VAC keeping a seal, she can use Dakin's moistened gauze until home health can see her to replace the VAC dressing. She states that home health is now washing the wound with soap and water with the dressing changes. Cultures obtained on 04/30/20 which were positive for MRSA which she was started on Doxycycline. Anaerobic cultures positive for Anaerobic cocci and Porphyromonas gingivalis. She was started on Flagyl. Encouraged to increase protein intake to help with wound healing. Encouraged to stop smoking as it can be deleterious to wound healing. Follow up two weeks. [id number]: [id number] Global Visit
== END 2020-05-15 23:59 ==
LOC: WC 14:00
PROVIDERS: PCP Family Medicine; Visit Provider Nurse Practitioner Family
DX: L97.112 Non-pressure chronic ulcer of right thigh with fat layer exposed (principal); L02.415 Cutaneous abscess of right lower limb; E66.9 Obesity, unspecified; E11.9 Type 2 diabetes mellitus without complications; F32.9 Major depressive disorder, single episode, unspecified; F41.9 Anxiety disorder, unspecified; M79.89 Other specified soft tissue disorders; F17.200 Nicotine dependence, unspecified, uncomplicated
CPT/HCPCS: 11042; 11043; 11046; 87070; 87075; 87076; 87077; 87186; 87205; 97605; 99212; G0463

== ENCOUNTER 2020-06-04 09:30 | Outpatient (RCR) | payer MEDICARE, SELFPAY ==
[2020-05-16 00:33] VITALS: BP 168/80; PULSE 92; RESP 22; TEMP 36.9
[2020-05-22 12:06] VITALS: BMI 44.1
[2020-06-04 09:03] VITALS: BP 156/76; PULSE 101; RESP 18; TEMP 36.4; BMI 44.1
--- NOTE | 2020-06-04 10:12 | PCM.WC.PN ---
Type of Wound Date of Service: 06/04/20 Chief Complaint: Nonhealing diabetic MRSA ulcer right upper medial thigh. History of Wound: Surgery 04/03/20 - Surgical preparation right upper medial thigh with incision and drainage and excisional debridement diabetic abscess (65 cm2). Wound care - VAC. Operative culture - Anaerobic cocci and was treated with Augmentin. Pathology from 04/03/20 showed acute and chronic inflammation, fat necrosis and granulation, consistent with abscess formation. A wound culture was obtained on 04/30/20 due to increasing odor. The culture was positive for MRSA and Anaerobic cocci and Porphyromonas gingivalis. She was started on Doxycycline and Flagyl and has finished them. Encourage nutritional supplementation with protein to help the healing process. HgbA1c from 04/04/20 was 7.3. She denies any fevers. She states her appetite is good. Progress of Wound: Improved. - Physical Exam Vital Signs Temp Pulse Resp BP 97.5 F L 101 H 18 156/76 H 06/04/20 09:03 06/04/20 09:03 06/04/20 09:03 06/04/20 09:03 Wound Measurements and Assessment WC - Nurse 1 - General Ulcer Measurement Start: 06/04/20 09:01 Freq: Status: Active Protocol: Activity Type Activity Date Activity User E-Sign Co-Sign Detail Recorded Client Recorded Date Recorded By Document 06/04/20 09:03 [facility] [id number] 06/04/20 09:11 [facility] 06/04/20 09:03 Wound Center Nurse 1 [Ulcer Assessment] #1- R UPPER INNER THIGH POST OP -Combined with other wound No -Current Size (cm) - Length 0.3 -Current Size (cm) - Width 3 -Current Size (cm) - Depth 0.3 -Total Square Cm 0.9 -Photo Taken No -Epithelialization Large 67-100% -Tunneling No -Undermining/Tunneling No -Circular Undermining No -Exudate Amt None Present -Wound Margin Distinct, Outline Attached -Granulation Amt Medium (34-66%) -Granulation Quality [place] -Slough/Fibrin Yes -Necrosis Amt Small (1-33%) -Necrotic Tissue Type Adherent Slough -Texture (Betty-wound Skin Appearance) Assessed, Scarring -Moisture (Betty-wound Skin Appearance Assessed ) -Color (Betty-wound Skin Appearance) Assessed -Temperature (Betty-wound Skin No Abnormality Appearance) (Pt Warm) -Tenderness on Palpation (Betty-wound No Skin Appearance) -Ulcer Cleansing soapy water -Foul Odor after Cleansing No -Anesthetic Used 4% Lidocaine Solution CALOS - Nurse 2 - General Ulcer CM Notes Start: 06/04/20 09:01 Freq: Status: Active Protocol: Activity Type Activity Date Activity User E-Sign Co-Sign Detail Recorded Client Recorded Date Recorded By Document 06/04/20 09:29 [id number] 06/04/20 09:30 JUAN 06/04/20 09:29 Wound Center Nurse 2 [Procedure/Treatment] -Time 09:30 -Correct Patient Yes -Correct Side, Site, Position Yes -Correct Procedure Yes -Procedure Performed Yes -Type of Procedure Debridement -Clinical Debridement Subcutaneous -Post Debridement Size (cm) - Length 0.4 -Post Debridement Size (cm) - Width 3.0 -Post Debridement Size (cm) - Depth 0.4 -Total Square Cm 1.20 -Wound/Ulcer Outcome Not Healed -Ulcer Cleansing Rinsed/ Irrigated with Saline -Foul Odor after Cleansing No -Bioengineered Tissue No -Bleeding Controlled with Pressure -Offloading No -Treatment Response Procedure Tolerated Well [See Physician Procedure note for Specifics] Pain Scale: 0-10 Numeric [Pain] -Is Patient Pain Free? Yes Debridement Note Post-Debridement Measurements/Treatment CALOS - Nurse 2 - General Ulcer CM Notes Start: 06/04/20 09:01 Freq: Status: Active Protocol: Activity Type Activity Date Activity User E-Sign Co-Sign Detail Recorded Client Recorded Date Recorded By Document 06/04/20 09:29 JF [id number] 06/04/20 09:30 06/04/20 09:29 Wound Center Nurse 2 #1- R UPPER INNER THIGH POST OP -Time 09:30 -Correct Patient Yes -Correct Side, Site, Position Yes -Correct Procedure Yes -Procedure Performed Yes -Type of Procedure Debridement -Clinical Debridement Subcutaneous -Post Debridement Size (cm) - Length 0.4 -Post Debridement Size (cm) - Width 3.0 -Post Debridement Size (cm) - Depth 0.4 -Total Square Cm 1.20 -Wound/Ulcer Outcome Not Healed -Ulcer Cleansing Rinsed/ Irrigated with Saline -Foul Odor after Cleansing No -Bioengineered Tissue No -Bleeding Controlled with Pressure -Offloading No -Treatment Response Procedure Tolerated Well Pain Scale: 0-10 Numeric Is Patient Pain Free? Yes Wound debrided: #1 Right upper medial thigh. Laterality: Right Wound Grade/Stage: 2. Type of Debridement: Excisional debridement Anesthesia Used: 4% Lidocaine Solution Depth: Down to and including healthy tissue, in the subcutaneous layer Percentage of wound debrided: 100 Instrument Used: 5mm curette Tissue Removed: subcutaneous tissue. Severity: Fat Layer Exposed Amount of bleeding with debridement: Mild Bleeding Controlled with: Pressure Patient tolerated procedure well Assessment/Plan Assessment: 1. 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 2. 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 3. MRSA. 4. Diabetes mellitus. 5. Smoker. Plan: The diabetic MRSA ulcer right upper medial thigh continues to improve and will stop the VAC and begin Silver dressing changes daily. She has finished the Doxycycline and Flagyl from 04/30/20 culture that showed MRSA, Anaerobic cocci, and Porphyromonas gingivalis. The operative culture showed Anaerobic cocci and she was treated initially with Augmentin. Encourage nutritional supplementation with protein to help the healing process. HgbA1c from 04/04/20 was 7.3. For any elective secondary wound closure, the HgbA1c needs to be less than 8. Encouraged the patient to stop smoking as it may have deleterious effects on wound healing. Follow up 2 weeks. [id number]: [id number] Global Visit - ICD-10 - Z48.89, L97.112, L02.415, M79.89, A49.02, E11.9, F17.200
== END 2020-06-15 23:59 ==
LOC: WC 09:30
PROVIDERS: PCP Family Medicine; Visit Provider Nurse Practitioner Family
DX: E11.622 Type 2 diabetes mellitus with other skin ulcer (principal); Z86.14 Personal history of Methicillin resistant Staphylococcus aureus infection; L97.112 Non-pressure chronic ulcer of right thigh with fat layer exposed; F17.200 Nicotine dependence, unspecified, uncomplicated
CPT/HCPCS: 11042

== ENCOUNTER 2020-06-18 08:33 | Outpatient (RCR) | payer MEDICARE, SELFPAY ==
[2020-06-16 00:31] VITALS: BP 156/76; PULSE 101; RESP 18; TEMP 36.4
[2020-06-18 08:35] VITALS: BP 173/90; PULSE 103; RESP 18; TEMP 36.6; BMI 44.1
--- NOTE | 2020-06-18 09:21 | PN.PCM_ITS ---
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 History of Wound: Surgery 04/03/20 - Surgical preparation right upper medial thigh with incision and drainage and excisional debridement diabetic abscess (65 cm2). Wound care - Healed today. Operative culture - Anaerobic cocci and was treated with Augmentin. Pathology from 04/03/20 showed acute and chronic inflammation, fat necrosis and granulation, consistent with abscess formation. A wound culture was obtained on 04/30/20 due to increasing odor. The culture was positive for MRSA and Anaerobic cocci and Porphyromonas gingivalis. She was started on Doxycycline and Flagyl and has finished them. Encourage nutritional supplementation with protein to help the healing process. HgbA1c from 04/04/20 was 7.3. She denies any fevers. She states her appetite is good. Progress of Wound: She is healed today. - Physical Exam Vital Signs Temp Pulse Resp BP 97.9 F 103 H 18 173/90 H 06/18/20 08:35 06/18/20 08:35 06/18/20 08:35 06/18/20 08:35 General: Alert, Oriented x3, Cooperative HEENT: Atraumatic Oral: Moist Mucosa Lungs: Normal air movement Cardiovascular: Regular rate Extremities: No edema Skin: Ulcer/ Wound - Right thigh/groin is healed today Wound Measurements and Assessment WC - Nurse 1 - General Ulcer Measurement Start: 06/18/20 08:35 Freq: Status: Active Protocol: Activity Type Activity Date Activity User E-Sign Co-Sign Detail Recorded Client Recorded Date Recorded By Document 06/18/20 08:35 [facility] [id number] 06/18/20 08:42 [facility] 06/18/20 08:35 Wound Center Nurse 1 [Ulcer Assessment] #1- R UPPER INNER THIGH POST OP -Combined with other wound No -Current Size (cm) - Length 0.1 -Current Size (cm) - Width 0.1 -Current Size (cm) - Depth 0.1 -Total Square Cm 0.01 -Date of Last Picture (Recall this 06/18/20 field) -Photo Taken Yes -Epithelialization Large 67-100% -Tunneling No -Undermining/Tunneling No -Circular Undermining No -Wound Margin Distinct, Outline Attached -Slough/Fibrin Yes -Necrosis Amt Small (1-33%) -Necrotic Tissue Type Adherent Slough -Texture (Betty-wound Skin Appearance) Assessed, Scarring -Moisture (Betty-wound Skin Appearance Assessed,Dry/ ) Scaly -Color (Betty-wound Skin Appearance) Assessed -Temperature (Betty-wound Skin No Abnormality Appearance) (Pt Warm) -Tenderness on Palpation (Betty-wound No Skin Appearance) -Ulcer Cleansing Rinsed/ Irrigated with Saline -Foul Odor after Cleansing No -Anesthetic Used 4% Lidocaine Solution - Nurse 2 - General Ulcer CM Notes Start: 06/18/20 08:35 Freq: Status: Active Protocol: Activity Type Activity Date Activity User E-Sign Co-Sign Detail Recorded Client Recorded Date Recorded By Document 06/18/20 09:04 JUAN [id number] 06/18/20 09:05 06/18/20 09:04 Wound Center Nurse 2 [Procedure/Treatment] -Correct Patient No -Correct Side, Site, Position No -Correct Procedure No -Procedure Performed No -Post Debridement Size (cm) - Length 0 -Post Debridement Size (cm) - Width 0 -Post Debridement Size (cm) - Depth 0 -Total Square (cm) 0 -Wound/Ulcer Outcome Healed- Epithelialized [See Physician Procedure note for Specifics] Pain Scale: 0-10 Numeric [Pain] -Is Patient Pain Free? Yes Musculoskeletal: No Tenderness to Palpation of Joints or Extremities Neurological: Cranial nerves II-XII grossly intact Psych/Mental Status: Normal Affect, Appropriate Debridement Note Post-Debridement Measurements/Treatment - Nurse 2 - General Ulcer CM Notes Start: 06/18/20 08:35 Freq: Status: Active Protocol: Activity Type Activity Date Activity User E-Sign Co-Sign Detail Recorded Client Recorded Date Recorded By Document 06/18/20 09:04 JUAN [id number] 06/18/20 09:05 06/18/20 09:04 Wound Center Nurse 2 #1- R UPPER INNER THIGH POST OP -Correct Patient No -Correct Side, Site, Position No -Correct Procedure No -Procedure Performed No -Post Debridement Size (cm) - Length 0 -Post Debridement Size (cm) - Width 0 -Post Debridement Size (cm) - Depth 0 -Total Square (cm) 0 -Wound/Ulcer Outcome Healed- Epithelialized Pain Scale: 0-10 Numeric Is Patient Pain Free? Yes No debridement was completed today Assessment/Plan Active Problems (Last Reviewed 05/22/20 @ 14:[address] 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 2. 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 3. MRSA. 4. Diabetes mellitus. 5. Smoker. Plan: The diabetic MRSA ulcer right upper medial thigh is healed today. Encouraged to massage the area daily with lotion to help soften the scarring. She has finished the Doxycycline and Flagyl from 04/30/20 culture that showed MRSA, Anaerobic cocci, and Porphyromonas gingivalis. The operative culture showed Anaerobic cocci and she was treated initially with Augmentin. Encourage nutritional supplementation with protein to help the healing process. HgbA1c from 04/04/20 was 7.3. For any elective secondary wound closure, the HgbA1c needs to be less than 8. Encouraged the patient to stop smoking as it may have deleterious effects on wound healing. Follow up as needed. [id number]: [id number] Global Visit
== END 2020-06-21 10:18 | disposition home or self-care (01) ==
LOC: WC 08:33
PROVIDERS: PCP Family Medicine; Visit Provider Nurse Practitioner Family
DX: Z09 Encounter for follow-up examination after completed treatment for conditions other than malignant neoplasm (principal); E11.9 Type 2 diabetes mellitus without complications; F17.200 Nicotine dependence, unspecified, uncomplicated; Z86.14 Personal history of Methicillin resistant Staphylococcus aureus infection
CPT/HCPCS: 99213; G0463

== ENCOUNTER 2021-11-27 08:30 | Outpatient (RCR) | payer MEDICARE, SELFPAY | END 2021-12-16 23:59 | LOC: DC 08:30 | PROVIDERS: PCP Family Medicine; Visit Provider Nurse Practitioner Family | DX: E66.01 Morbid (severe) obesity due to excess calories (principal); Z68.41 Body mass index [BMI] 40.0-44.9, adult; E11.9 Type 2 diabetes mellitus without complications | CPT/HCPCS: G0108 ==

== ENCOUNTER 2022-03-01 20:12 | Emergency (ER) | payer MEDICARE, SELFPAY ==
[2022-03-01 20:13] VITALS: BP 143/77; PULSE 120; RESP 18; TEMP 36.7; O2SAT 98; BMI 43.1
--- NOTE | 2022-03-01 20:47 | RAD_ITS ---
EXAM: XR RIGHT KNEE COMPLETE, 4 OR MORE VIEWS CLINICAL INDICATION: knee pain TECHNIQUE: Four or more views of the right knee. This report was created using [employer] report generation technology. COMPARISON: None. FINDINGS: BONES/JOINTS: Old fracture proximal right fibula. Preservation of the joint space. No sclerotic or destructive changes observed. SOFT TISSUES: Unremarkable. No soft tissue swelling or gas. No radiopaque foreign body. RAD/Knee 4 or More Views IMPRESSION: Old fracture proximal right fibula. No acute abnormality. Electronically Signed: Ishaan Reese MD at 21:21 EDT ,
--- NOTE | 2022-03-01 20:47 | RAD_ITS ---
EXAM: XR RIGHT HIP WITH PELVIS WHEN PERFORMED, 2 OR 3 VIEWS CLINICAL INDICATION: hip pain TECHNIQUE: Two or three views of the right hip with pelvis when performed. This report was created using [employer] report generation technology. COMPARISON: None. FINDINGS: BONES/JOINTS: Status post bilateral hip arthroplasties that appear well aligned. No fractures. No destructive or sclerotic lesions. Note that overlapping bowel shadows may however obscure fine detail. Sacroiliac joint is unremarkable. No widening of the pubic symphysis. SOFT TISSUES: Unremarkable. No soft tissue swelling or gas. RAD/HIP, UNI W/ Pelvis 2-3 Views IMPRESSION: No acute findings in the pelvis or right hip. Bilateral hip arthroplasties. Electronically Signed: Ishaan Reese MD at 21:22 EDT ,
[2022-03-01] MEDS: HYDROcodone Bitartrate/Apap 5/325 Tablet PO (21:07)
--- NOTE | 2022-03-01 22:21 | ED.VIS.FALL ---
HPI HPI - Fall History of Present Illness Chief Complaint: Fall Narrative Narrative: 61-year-old female presenting with right knee and hip pain. She states she bent over and lost her balance falling onto her knees. She denies head injury. She denies dizziness or lightheadedness. She denies any other prodrome prior to falling. She states she had pain in her knee on the right as well as her right hip. She did not strike her right hip. Patient states he was initially unable to ambulate secondary to pain. No numbness or tingling. PFSH PFSH Medical History Abscess of right thigh Anxiety and depression Diabetes mellitus type 2 in obese Essential (primary) hypertension HLD (hyperlipidemia) Intermittent complete heart block Morbid obesity Necrotizing soft tissue infection Nicotine dependence Non-healing ulcer Obstructive sleep apnea Open wound of right thigh Primary osteoarthritis of left hip Small bowel ileus Spinal stenosis Type 2 diabetes mellitus Home Medications cyclobenzaprine 10 mg PO TID PRN PRN 02/06/17 [History Last Taken 04/01/20] atorvastatin 10 mg PO QHS 06/12/17 [History Last Taken 04/01/20] albuterol sulfate 1 - 2 puff INHALATION Q4H PRN PRN #1 inhaler 08/25/19 [Rx Last Taken 03/30/20] benzonatate 100 mg capsule 100 mg PO BID PRN 11/22/19 [History Last Taken 04/02/20] doxycycline monohydrate 100 mg capsule 100 mg PO BID 21 Days #42 cap 05/02/20 [Rx Last Taken Unknown] dulaglutide 0.75 mg/0.5 mL subcutaneous pen injector mg SC 05/22/20 [History Last Taken Unknown] Allergy/AdvReac Type Severity Reaction Status Date / Time enalapril AdvReac COUGH Verified 05/22/20 12:11 lisinopril AdvReac COUGH Verified 05/22/20 12:11 Family History Father Colon cancer Mother Diabetes Heart disease Surgical History H/O bilateral hip replacements History of permanent cardiac pacemaker placement (08/08/19) Social History Smoking Status: Current every day smoker tobacco type: cigarettes ROS ROS ED Constitutional Constitutional ED: Denies chills or fever(s) Eyes Eyes: Denies blurry vision or diplopia ENT ENT ED: Denies rhinorrhea or sore throat Cardiovascular Cardiovascular: Denies chest pain or palpitations Respiratory/Chest Respiratory/Chest: Denies cough or dyspnea Gastrointestinal Gastrointestinal: Denies abdominal pain, nausea or vomiting Genitourinary Genitourinary ED: Denies dysuria or hematuria Musculoskeletal Musculoskeletal: Reports other Details: Right hip, right knee Neurologic Neurologic: Denies headache(s), paresthesias or weakness EXAM Physical Exam Const Vital Signs: 03/01/22 20:13 03/01/22 20:23 Temperature 98.1 F Temperature Source Oral Pulse Rate 120 H Respiratory Rate 18 Respiratory Effort Normal Blood Pressure 143/77 H Blood Pressure Mean 99 Pulse Ox 98 Oxygen Delivery Method Room Air Room Air Oxygen Flow Rate (L/min) 97 Positive well nourished and obese General Appearance ED: NAD Nutritional Appearance: obese HEENT Reports normocephalic atraumatic Eyes PERRL and EOMs intact bilaterally Resp normal respiratory effort Cardio regular rate and regular rhythm Extremity normal to inspection Extremity Narrative: Palpation of the right patella. Right knee extensor mechanism is intact. No obvious deformity. Right hip is mildly tender to palpation. She does have normal range of motion of the right hip. Neuro oriented x3 Psych mental status grossly normal MDM MDM MDM Narrative Medical decision making narrative: Patient given [place] for pain. I did obtain an x-ray of the right hip and right knee which are negative for acute findings. Patient states that she has appointment tomorrow Dr. Olmedo and follow-up. I recommended Tylenol ibuprofen for pain ice and rest. She should also stretch. Impression: 1 right knee contusion 2. Right hip strain Radiography Diagnostic Testing: Clinical Impression(s) from Imaging Studies Hip/Pelvis X-Ray 03/01/22 20:47 IMPRESSION: No acute findings in the pelvis or right hip. Bilateral hip arthroplasties. Electronically Signed: Ishaan Reese MD at 21:22 EDT , Knee X-Ray 03/01/22 20:47 IMPRESSION: Old fracture proximal right fibula. No acute abnormality. Electronically Signed: Ishaan Reese MD at 21:21 EDT , Discharge Plan Triage Chief Complaint: Fall ED Provider: Marco A Oreilly Dx/Rx/DC Orders Instructions: ED Contusion, Lower Extremity, ED Hip Strain Prescriptions: No Action benzonatate 100 mg capsule 100 mg PO BID PRN (Reason: Cough) RF: 0 dulaglutide 0.75 mg/0.5 mL pen injector SC RF: 0 cyclobenzaprine 10 MG tablet 10 mg PO TID PRN PRN (Reason: muscle spasms) RF: 0 atorvastatin 10 MG tablet 10 mg PO QHS RF: 0 albuterol sulfate 1 INHALER inhaler 1 - 2 puff inhalation Q4H PRN PRN (Reason: Wheezing) Qty: 1 RF: 0 doxycycline monohydrate 100 mg capsule 100 mg PO BID 21 Days Qty: 42 RF: 1 Primary Care Provider: Lamberto Rogers Referrals: Lamberto Rogers MD [Primary Care Provider] - Disposition Disposition: Home, Self Care
== END 2022-03-01 22:41 | disposition home or self-care (01) ==
PROVIDERS: Emergency Provider Student in an Organized Health Care Education/Training Program; PCP Family Medicine; Visit Provider Student in an Organized Health Care Education/Training Program
DX: S73.101A Unspecified sprain of right hip, initial encounter (principal); E66.01 Morbid (severe) obesity due to excess calories; Z68.41 Body mass index [BMI] 40.0-44.9, adult; E11.9 Type 2 diabetes mellitus without complications; S80.01XA Contusion of right knee, initial encounter; W19.XXXA Unspecified fall, initial encounter; I10 Essential (primary) hypertension; E78.5 Hyperlipidemia, unspecified; F17.210 Nicotine dependence, cigarettes, uncomplicated; Z95.0 Presence of cardiac pacemaker; Z96.643 Presence of artificial hip joint, bilateral; Z79.899 Other long term (current) drug therapy
CPT/HCPCS: 73502; 73564; 99284

== ENCOUNTER 2022-03-03 08:56 | Outpatient (RCR) | payer MEDICARE, SELFPAY ==
[2022-03-03 09:48] VITALS: BP 140/61; PULSE 91; RESP 16; TEMP 35.5; BMI 42.9
== END 2022-03-15 23:59 | disposition home or self-care (01) ==
LOC: WC 08:56
PROVIDERS: PCP Family Medicine; Visit Provider Nurse Practitioner Family
DX: Z09 Encounter for follow-up examination after completed treatment for conditions other than malignant neoplasm (principal)

== ENCOUNTER → 2023-04-27 | Outpatient (CLI) | payer MEDICARE, SELFPAY ==
--- NOTE | 2023-04-27 12:27 | US_ITS ---
INDICATION: RLQ PAIN EXAMINATION: Ultrasound US Transvaginal Non-OB TECHNIQUE: Transvaginal sonographic images of the pelvis. Grayscale, spectral waveform, and color flow Doppler evaluation of the adnexa. COMPARISON: None. FINDINGS: UTERUS: 9.1 x 5.1 x 6.6 cm. No evidence of a uterine mass or fibroid. There are cystic areas within the endometrium. Endometrial stripe thickness of 1.5 cm. There is a nabothian cyst. RIGHT OVARY: Not visualized due to overlying bowel gas. LEFT OVARY: Not visualized due to overlying bowel gas. FREE FLUID: No significant free fluid. US/Transvaginal Non- IMPRESSION: 1. Unremarkable appearance of the uterus. 2. Nonvisualization of the bilateral ovaries. Electronically Signed: Oscar Norris DO at 4:03 EDT ,
== END | disposition home or self-care (01) ==
LOC: OPBI 12:23
PROVIDERS: PCP Family Medicine; Referring Provider Nurse Practitioner Women's Health; Visit Provider Nurse Practitioner Women's Health
DX: Z12.31 Encounter for screening mammogram for malignant neoplasm of breast (principal); R10.31 Right lower quadrant pain
CPT/HCPCS: 76830